=== PATIENT | female | born 1950 | race Caucasian/White ===

== ENCOUNTER → 2017-10-22 03:20 | Outpatient (REF) | payer MEDICARE, SELFPAY ==
[2017-10-22 08:12] LABS: Color, Urine Straw (Yellow); Glucose, Dipstick Normal (Normal); Ketone-Dipstick Negative (Negative); Leukocyte Esterase-Dipstick 500 /ul (Negative); Nitrite-Dipstick Negative (Negative); Occult Blood-Urine Negative /ul (Negative); Protein-Dipstick Negative (Negative); Urine Bilirubin Dipstick Negative (Negative); Urine Clarity Cloudy (Clear); Urine Urobilinogen Normal (Normal)
== END ==
LOC: OLS.ACW300 03:20
PROVIDERS: Visit Provider Internal Medicine
DX: G93.1 Anoxic brain damage, not elsewhere classified (principal); F79 Unspecified intellectual disabilities; R29.3 Abnormal posture; R56.9 Unspecified convulsions; I73.9 Peripheral vascular disease, unspecified; E03.9 Hypothyroidism, unspecified
CPT/HCPCS: 81002; 87077; 87086; 87088; 87186

== ENCOUNTER → 2017-12-26 05:00 | Outpatient (REF) | payer MEDICARE, SELFPAY ==
[2017-12-26 07:58] LABS: Absolute Lymphocyte Count 4.17 X10^3/ul (0.83-4.51); Absolute Neutrophil Count 3.1 X10^3/uL (2.0-7.7); Basophil# 0.06 X10^3/uL; Basophil% 0.7 % (0-1); Eosinophil# 0.32 X10^3/uL; Eosinophils% 3.9 % (0-5); Hematocrit 46.2 % (37-47); Hemoglobin 15.4 g/dl (12.0-15.0); Lymphocyte # 4.17 X10^3/ul (4.0); Lymphocyte % 50.3 % (19-41); Mean Corp Hgb Conc 33.3 g/gl (32-36); Mean Corpuscular Hgb 31.8 pg (27.0-32.0); Mean Corpuscular Volume 95.3 fL (81-99); Mean Platelet Vol. 10.7 fl (6.2-12.0); Monocyte# 0.61 X10^3/uL; Monocyte% 7.4 % (0-10); Neutrophil # 3.09 X10^3/uL (2.7-7.7); Neutrophil % 37.2 % (47-70); Platelet Count 263 K/mm3 (150-450); RBC Distribution Width CV 14.5 % (11.6-14.6); RBC Distribution Width SD 49.3 fl (35.1-43.9); Red Blood Count 4.85 M/mm3 (4.2-5.4); White Blood Count 8.3 K/mm3 (4.4-11.0)
[2017-12-26 07:59] LABS: POSITIVE COUNT NO; POSITIVE DIFFERENTIAL NO; POSITIVE MORPHOLOGY NO
== END ==
LOC: OLS.ACW100 05:00
PROVIDERS: Visit Provider Internal Medicine
DX: G93.1 Anoxic brain damage, not elsewhere classified (principal); F79 Unspecified intellectual disabilities; R29.3 Abnormal posture; I73.9 Peripheral vascular disease, unspecified; E03.9 Hypothyroidism, unspecified
CPT/HCPCS: 36415; 82140; 85025

== ENCOUNTER → 2018-02-14 04:00 | Outpatient (REF) | payer MEDICARE, SELFPAY ==
[2018-02-14 06:58] LABS: Valproic Acid (Depakene) Level 27 ug/mL (50-100)
== END ==
LOC: OLS.ACW300 04:00
PROVIDERS: Visit Provider Internal Medicine
DX: G93.1 Anoxic brain damage, not elsewhere classified (principal); F79 Unspecified intellectual disabilities; R29.3 Abnormal posture; R56.9 Unspecified convulsions; I73.9 Peripheral vascular disease, unspecified; E03.9 Hypothyroidism, unspecified
CPT/HCPCS: 36415; 80164

== ENCOUNTER → 2018-03-10 05:00 | Outpatient (REF) | payer MEDICARE, SELFPAY ==
[2018-03-10 10:01] LABS: Valproic Acid (Depakene) Level 35 ug/mL (50-100)
[2018-03-12 11:08] LABS: Zarontin Level 70 ug/mL (40-100)
== END ==
LOC: OLS.ACW300 05:00
PROVIDERS: Visit Provider Internal Medicine
DX: G93.1 Anoxic brain damage, not elsewhere classified (principal); F79 Unspecified intellectual disabilities; R29.3 Abnormal posture; I73.9 Peripheral vascular disease, unspecified; R56.9 Unspecified convulsions; E03.9 Hypothyroidism, unspecified
CPT/HCPCS: 36415; 80164; 80168

== ENCOUNTER → 2018-03-10 14:30 | Outpatient (REF) | payer MEDICARE, SELFPAY ==
[2018-03-11 12:52] LABS: Color, Urine Yellow (Yellow); Glucose, Dipstick Normal (Normal); Ketone-Dipstick Negative (Negative); Leukocyte Esterase-Dipstick 500 /ul (Negative); Nitrite-Dipstick Negative (Negative); Occult Blood-Urine 25 /ul (Negative); Protein-Dipstick 30 mg/dl (Negative); Specific Gravity, Urine 1.005 (1.002-1.030); Urine Bilirubin Dipstick Negative (Negative); Urine Clarity Cloudy (Clear); Urine Urobilinogen Normal (Normal)
== END ==
LOC: OLS.ACW300 14:30
PROVIDERS: Visit Provider Internal Medicine
DX: G93.1 Anoxic brain damage, not elsewhere classified (principal); F79 Unspecified intellectual disabilities; R29.3 Abnormal posture; R56.9 Unspecified convulsions; I73.9 Peripheral vascular disease, unspecified; E03.9 Hypothyroidism, unspecified
CPT/HCPCS: 81002; 87086; 87088; 87186

== ENCOUNTER → 2018-04-10 05:00 | Outpatient (REF) | payer MEDICARE, SELFPAY ==
[2018-04-10 09:35] LABS: Valproic Acid (Depakene) Level 59 ug/mL (50-100)
== END ==
LOC: OLS.ACW300 05:00
PROVIDERS: Visit Provider Internal Medicine
DX: G93.1 Anoxic brain damage, not elsewhere classified (principal); F79 Unspecified intellectual disabilities; R29.3 Abnormal posture; I73.9 Peripheral vascular disease, unspecified; E03.9 Hypothyroidism, unspecified
CPT/HCPCS: 36415; 80164

== ENCOUNTER → 2018-05-09 05:00 | Outpatient (REF) | payer MEDICARE, SELFPAY ==
[2018-05-09 09:05] LABS: Thyroid Stim Hormone (TSH) 4.75 uIU/mL (0.358-3.74)
== END ==
LOC: OLS.ACW300 05:00
PROVIDERS: Visit Provider Internal Medicine
DX: R56.9 Unspecified convulsions (principal); F79 Unspecified intellectual disabilities; I73.9 Peripheral vascular disease, unspecified; R29.3 Abnormal posture; M62.81 Muscle weakness (generalized); M25.579 Pain in unspecified ankle and joints of unspecified foot
CPT/HCPCS: 36415; 84443

== ENCOUNTER → 2018-06-20 05:00 | Outpatient (REF) | payer MEDICARE, SELFPAY ==
[2018-06-20 09:12] LABS: Thyroid Stim Hormone (TSH) 2.26 uIU/mL (0.358-3.74)
== END ==
LOC: OLS.ACW300 05:00
PROVIDERS: Visit Provider Internal Medicine
DX: G93.1 Anoxic brain damage, not elsewhere classified (principal); F79 Unspecified intellectual disabilities; R29.3 Abnormal posture; R56.9 Unspecified convulsions; I73.9 Peripheral vascular disease, unspecified; E03.9 Hypothyroidism, unspecified
CPT/HCPCS: 36415; 84443

== ENCOUNTER → 2018-07-07 05:00 | Outpatient (REF) | payer MEDICARE, SELFPAY ==
[2018-07-07 09:23] LABS: Valproic Acid (Depakene) Level 52 ug/mL (50-100)
--- OUTSIDE RECORDS SUMMARY | 2018-08-30 02:32 | XMS RPT_ITS ---
:1950 Author Organization OHIP Support Name Relationship Address Phone Philipp Arroyo Unavailable [address] + [place] [address] R Unavailable Unavailable Unavailable Dina, Philipp Unavailable [address] + [place] [address] R Unavailable Unavailable Unavailable [place], Philipp Unavailable [address] + [place] [address] R Unavailable Unavailable Unavailable Dina, Philipp Unavailable [address] + [place] [address] R Unavailable Unavailable Unavailable [place], Philipp Unavailable [address] + [place] [address] R Unavailable Unavailable Unavailable [place], Philipp Unavailable [address] + [place] [address] R Unavailable Unavailable Unavailable Dina, Philipp Unavailable [address] + [place] [address] R Unavailable Unavailable Unavailable Dina, Philipp Unavailable [address] + [place] [address] R Unavailable Unavailable Unavailable Dina, Philipp Unavailable [address] + [place] [address] R Unavailable Unavailable Unavailable Dina, Philipp Unavailable [address] + [place] [address] R Unavailable Unavailable Unavailable Care Team Providers Name Role Phone Darrian Cadena Attending Unavailable Darrian Cadena Attending Unavailable Darrian Cadena Attending Unavailable Darrian Cadena Attending Unavailable Darrian Cadena Attending Unavailable Darrian Cadena Attending Unavailable Darrian Cadena Attending Unavailable Katsaros, Darrian Attending Unavailable Katsaros, Darrian Attending Unavailable Katsaros, Darrian Attending Unavailable PROBLEMS PROBLEMS DATE TYPE CONDITION / CODE ATTENDING STATUS SOURCE 07/17/2018 Unknown G93.1 - Anoxic Darrian Cadena brain damage, not Community elsewhere Hospital classified / Repository G93.1(ICD-10) 07/17/2018 Unknown F79 - Unspecified Darrian Cadena intellectual Community disabilities / Hospital F79(ICD-10) Repository 07/17/2018 Unknown R29.3 - Abnormal Darrian Cadena Active [place] posture / Community R29.3(ICD-10) Hospital Repository 07/17/2018 Unknown R56.9 - KatDarrian garcia Active [place] Unspecified Community convulsions / Hospital R56.9(ICD-10) Repository 07/17/2018 Unknown I73.9 - Peripheral Darrian Cadena Active [place] vascular disease, Community unspecified / Hospital I73.9(ICD-10) Repository 07/17/2018 Unknown E03.9 - Darrian Cadena Active [place] Hypothyroidism, Community unspecified / Hospital E03.9(ICD-10) Repository 06/12/2018 Unknown M62.81 - Muscle KatDarrian garcia Active [place] weakness Community (generalized) / Hospital M62.81(ICD-10) Repository 06/12/2018 Unknown M25.579 - Pain in Darrian Cadena Active [place] unspecified ankle Community and joints of Hospital unspecified foot / Repository M25.579(ICD-10) PROCEDURES PROCEDURES No Procedure Records FoundRESULTS RESULTS VALPROIC ACID Collected: 07/07/2018 Status: F Source: [place] (DEPAKENE) LEVEL 6:55 AM [facility] REPOSITORY Order Comment: 304/2 TYPE CODE TESTS RESULT OUT OF RANGE REFERENCE UNITS LAB L501.8100 50-100 ug/mL Normal VALPROIC ACID 52 Performed By: #### L501.8100 #### [facility] [facility] [place], [address] THYROID STIM HORMONE Collected: 06/20/2018 Status: F Source: [place] (TSH) 7:00 AM [facility] REPOSIT[facility] Order Comment: ROOM 304 TYPE CODE TESTS RESULT OUT OF RANGE REFERENCE UNITS LAB L501.9520 0.358-3.74 uIU/mL Normal TSH 2.26 Performed By: #### L501.9520 #### [facility] [address] [place], [address] THYROID STIM HORMONE Collected: 05/09/2018 Status: F Source: [place] (TSH) 6:00 AM [facility] REPOS[facility] Order Comment: ROOM 304 TYPE CODE TESTS RESULT OUT OF RANGE REFERENCE UNITS LAB L501.9520 0.358-3.74 uIU/mL High TSH 4.75 Performed By: #### L501.9520 #### [facility] [address] [place], [address] VALPROIC ACID Collected: 04/10/2018 Status: F Source: [place] (DEPAKENE) LEVEL 7:10 AM [facility] REPOSIT[facility] TYPE CODE TESTS RESULT OUT OF RANGE REFERENCE UNITS LAB L501.8100 50-100 ug/mL Normal VALPROIC ACID 59 Performed By: #### L501.8100 #### [facility] [address] [place], [address] MISCELLANEOUS LAB Collected: 04/10/2018 Status: F Source: [place] PROCEDURE 7:10 AM [facility] REPOS[facility] Order Comment: Comments: [id number] ETHOSUXIMIDE SERUM RT Test(s) Ordered: [id number] ETHOSUXIMIDE SERUM RT TYPE CODE TESTS RESULT OUT OF RANGE REFERENCE UNITS LAB L801.1541 Normal MISC LAB TEST Result Comment: TEST RESULT UNITS REFERENCE INTERVAL Ethosuximide(Zaronton), serum 40 ug/mL 40 - 100 Detection Limit = 10 TESTING PERFORMED AT [facility]. ORIGINAL REPORT ON FILE IN LAB CONTAINS ADDITIONAL TEST SITE INFORMATION. Performed By: #### L801.1541 #### [facility] [address] [place], [address] URINALYSIS, ROUTINE Collected: 03/10/2018 Status: F Source: [place] (DIPSTICK) 2:30 PM [facility] REPOS[facility] Order Comment: How was Urine Obtained? CATHETER SPECIMEN TYPE CODE TESTS RESULT OUT OF RANGE REFERENCE UNITS LAB L400.3000 Yellow COLOR Normal Yellow LAB L400.3050 Clear Normal CLARITY Cloudy LAB L400.3200 Normal mg/dl Normal GLUCOSE, UR Normal LAB L400.3300 Negative mg/dL Normal BILIRUBIN URINE Negative LAB L400.3400 Negative mg/dl Normal KETONE UR Negative LAB L400.3465 1.002-1.030 Normal SP.GR. DIPSTX 1.005 LAB L400.3550 5.0 - 8.0 pH UR Normal 7.0 LAB L400.3600 Negative mg/dl High PROT 30 DIPSTX LAB L400.3700 Normal mg/dl Normal UROBILI Normal LAB L400.3750 Negative Normal NITRITE UR Negative LAB L400.3780 Negative /ul High 25 OCCULT BLOOD-UR LAB L400.3800 Negative /ul High LEUK ESTERASE 500 Performed By: #### L400.2011 #### [facility] [address] [place], [address] Observed: 03/10/2018 Status: F Source: [place] CULTURE, URINE 2:30 PM [facility] REPOS[facility] Urine Culture ORGANISM 1: Streptococcus agalactiae (B) Effie Count >100,000 ORGANISM 2: Proteus mirabilis Effie Count 50,000-80,000 Streptococcus agalactiae (B): REACTION Ampicillin $ <=0.25 S Benzylpenicillin NF <=0.06 S Ceftriaxone $ <=0.12 S Inducable Clindamycin Resistan - Linezolid $$$$ <=2 S Vancomycin $ 0.5 S (NF) indicates non-formulary drug at [facility]. Approval by Infectious Disease Specialist required before non-formulary drugs may be ordered and/or dispensed. * CLSI guidelines does not recommend testing of cephalosporins. This interpretation is deduced from Beta-lactam/penicillin results. Proteus mirabilis: REACTION Amoxacillin/Clavulanic Acid $ <=2 S Ampicillin $ <=2 S Ampicillin/Sulbactam $ <=2 S Cefazolin $ 8 S Cefepime $ <=1 S Ceftriaxone $ <=1 S Ciprofloxacin $ >=4 R Ertapenim $$$ <=0.5 S Gentamicin $ <=1 S Levofloxacin $ 4 I Nitrofurantoin $ 64 R Piperacillin/Tazobactam $$ <=4 S Tobramycin $ <=1 S Trimethoprim/Sulfametho $ 40 S (NF) indicates non-formulary drug at [facility]. Approval by Infectious Disease Specialist required before non-formulary drugs may be ordered and/or dispensed. Performed By: #### M100.0650 #### [facility] [address] [place], [address] VALPROIC ACID Collected: 03/10/2018 Status: F Source: [facility] 8:10 AM [facility] Order Comment: 304-2 TYPE CODE TESTS RESULT OUT OF REFERENCE UNITS RANGE LAB L501.8100 50-100 ug/mL Low VALPROIC ACID 35 Performed By: #### L501.8100 #### [facility] [address] [place], [address] ZARONTIN LEVEL Collected: 03/10/2018 Status: F Source: [place] 8:10 AM [facility]POS[facility] Order Comment: 304-2 TYPE CODE TESTS RESULT OUT OF RANGE REFERENCE UNITS LAB L3400.0600 40-100 ug/mL Normal ZARONTIN 7443 70 Result Comment: Detection Limit = 10 Performed at: - [facility] [id number] [employer] Operator: Aris Agosto MD, Phone: [phone] Performed By: #### L3400.0600 #### [facility] (refer to report for specific site) refer to report for address and phone number VALPROIC ACID Collected: 02/14/2018 Status: F Source: [facility]) LEVEL 5:24 AM [facility] TYPE CODE TESTS RESULT OUT OF REFERENCE UNITS RANGE LAB L501.8100 50-100 ug/mL Low VALPROIC ACID 27 Performed By: #### L501.8100 #### [facility] [address] [place], [address] MISCELLANEOUS LAB Collected: 02/14/2018 Status: F Source: [place] PROCEDURE 5:24 AM [facility] Order Comment: Comments: #[id number] ETHOSUXIMIDE SERUM RT Test(s) Ordered: #[id number] ETHOSUXIMIDE SERUM RT TYPE CODE TESTS RESULT OUT OF RANGE REFERENCE UNITS LAB L801.1541 Normal [facility] LAB TEST Result Comment: TEST RESULT UNITS REF INTERVAL Ethosuximide (Zarontin), Serum Ethosuximide (Zarontin), Serum 129 Alert ug/mL 40 - 100 Verified by repeat analysis Detection Limit = 10 See below: Patient drug level exceeds published reference range. Evaluate clinically for signs of potential toxicity. TESTING PERFORMED AT [facility]. ORIGINAL REPORT ON FILE IN LAB CONTAINS ADDITIONAL TEST SITE INFORMATION. Performed By: #### L801.1541 #### [facility] [address] [place], [address] CBC W/DIFF, AUTOMATED Collected: 12/26/2017 Status: F Source: [place] 6:40 AM [facility]POS[facility] Order Comment: ROOM 304 TYPE CODE TESTS RESULT OUT OF RANGE REFERENCE UNITS LAB L100.1000 4.4-11.0 K/mm3 Normal WBC 8.3 LAB L100.1200 4.2-5.4 M/mm3 Normal RBC 4.85 LAB L100.1300 12.0-15.0 g/dl High HGB 15.4 LAB L100.1400 37-47 % Normal HCT 46.2 LAB L100.1500 81-99 fL Normal MCV 95.3 LAB L100.1600 27.0-32.0 pg Normal MCH 31.8 LAB L100.1700 32-36 g/gl Normal MCHC 33.3 LAB L100.1810 11.6-14.6 % Normal RDW CV 14.5 LAB L100.1820 35.1-43.9 fl High RDW SD 49.3 LAB L100.1900 150-450 K/mm3 Normal PLT 263 LAB L100.2000 6.2-12.0 fl Normal MPV 10.7 LAB L100.2100 47-70 % Low NEUT% 37.2 LAB L100.2200 19-41 % High LY% 50.3 LAB L100.2300 0-10 % Normal MONO% 7.4 LAB L100.2400 0-5 % Normal EO% 3.9 LAB L100.2500 0-1 % Normal BASO% 0.7 LAB L100.2550 0.0-0.9 % Normal IM GRAN % 0.500 Result Comment: IG% - Immature Granulocytes (promyelocytes, myelocytes and metamyelocytes) > 1% indicates that a LEFT SHIFT is Present. LAB L100.2620 2.0-7.7 X10 3/uL Normal Absolute Neut 3.1 LAB L100.2720 0.83-4.51 X10 3/ul Normal Absolute Lymph 4.17 Performed By: #### L100.0100 #### [facility] [address] [place], [address] AMMONIA Collected: 12/26/2017 Status: F Source: [place] 6:40 AM [facility] Order Comment: ROOM 304 TYPE CODE TESTS RESULT OUT OF REFERENCE UNITS RANGE LAB L503.5510 11-32 umol/L High AMMONIA 34.0 Performed By: #### L503.5510 #### [facility] [address], [place], [address] URINALYSIS, ROUTINE Collected: 10/22/2017 Status: F Source: [place] (DIPSTICK) 3:20 AM [facility] Order Comment: How was Urine Obtained? CLEAN CATCH TYPE CODE TESTS RESULT OUT OF RANGE REFERENCE UNITS LAB L400.3000 Yellow COLOR Normal Straw LAB L400.3050 Clear Normal CLARITY Cloudy LAB L400.3200 Normal mg/dl Normal GLUCOSE, UR Normal LAB L400.3300 Negative mg/dL Normal BILIRUBIN URINE Negative LAB L400.3400 Negative mg/dl Normal KETONE UR Negative LAB L400.3465 1.002-1.030 Normal SP.GR. DIPSTX 1.010 LAB L400.3550 5.0 - 8.0 pH UR Normal 7.0 LAB L400.3600 Negative mg/dl PROT Normal DIPSTX Negative LAB L400.3700 Normal mg/dl Normal UROBILI Normal LAB L400.3750 Negative Normal NITRITE UR Negative LAB L400.3780 Negative /ul Normal OCCULT BLOOD-UR Negative LAB L400.3800 Negative /ul High LEUK ESTERASE 500 Performed By: #### L400.2011 #### [facility] [address] [facility] [address] [place], [place], [address] Observed: 10/22/2017 Status: F Source: [place] CULTURE, URINE 3:20 AM [facility]POS[facility] Urine Culture ORGANISM 1: Proteus mirabilis Effie Count 80,000-100,000 Proteus mirabilis: REACTION Amoxacillin/Clavulanic Acid $ <=2 S Ampicillin $ <=2 S Ampicillin/Sulbactam $ <=2 S Cefazolin $ <=4 S Cefepime $ <=1 S Ceftriaxone $ <=1 S Ciprofloxacin $ >=4 R Ertapenim $$$ <=0.5 S Gentamicin $ <=1 S Levofloxacin $ 4 I Nitrofurantoin $ 64 R Piperacillin/Tazobactam $$ <=4 S Tobramycin $ <=1 S Trimethoprim/Sulfametho $ >=320 R (NF) indicates non-formulary drug at [facility]. Approval by Infectious Disease Specialist required before non-formulary drugs may be ordered and/or dispensed. Performed By: #### M100.0650 #### [facility] [address] [facility] [address] [place], [place], [address] ALLERGIES ALLERGIES No Allergies Records FoundENCOUNTERS ENCOUNTERS ADMIT/DISCHARGE ACCOUNT ADMITTING ENCOUNTER LOCATION SOURCE NUMBER CLASS 07/14/2018 [id number] Ambulatory [address] ing:OLS.ACW30 Repository 0 07/07/2018 [id number] [address] [facility] ing:OLS.ACW30 Repository 0 06/20/2018 [id number] Ambulatory [place] [facility] ing:OLS.ACW30 Repository 0 05/09/2018 [id number] Amb[place] [facility] ing:OLS.ACW30 Repository 0 04/10/2018 [id number] Ambulatory [place] 2 [facility] ing:OLS.ACW30 Repository 0 03/10/2018 [id number] Ambulatory [place] 1 [facility] ing:OLS.ACW30 Repository 0 03/10/2018 [id number] Ambulatory [place] 7 [facility] ing:OLS.ACW30 Repository 0 02/14/2018 [id number] Amb[place] [facility] ing:OLS.ACW30 Repository 0 12/26/2017 [id number] Ambulatory [place] 9 [facility] ing:OLS.ACW10 Repository 0 10/22/2017 [id number] Ambulatory [place] 5 [facility] ing:OLS.ACW30 Repository 0 PAYERS PAYERS ENCOUNTER GUARANTOR PAYER SUBSCRIBER SOURCE 07/14/2018 Milagro Kimball Primary NOT GIVENUNK [place] Insurance:SELF PAY [facility] Number: Effective Repository [place], [place] Date:2018-07-14 [id number]: () 07/07/2018 Milagro Arroyo147 Primary Milagro [place] [facility] [place]: Community [facility] OF *IN [facility] [id number] Number: Repository [place], [place] [id number]: 330) Date:5630-33-68WB [phone] () [address] [address]WG: 07/07/2018 Secondary NOT GIVENUNK [place] Insurance:SELF PAY [facility] Number: Effective Repository Date:2018-07-07 06/20/2018 Milagro Rogrgo260 Primary Milagro [place] [facility] [place]: Community [facility] OF *IN [place] [id number] YOSELYN Number: Repository [place], [place] [id number]: ([phone]) Date:6389-22-56IU [phone] () [address] [place] [address]BW: 06/20/2018 Secondary NOT GIVENUNK [place] Insurance:SELF PAY [facility] Number: Effective Repository Date:2018-06-20 05/09/2018 Milagrojania [id number] Primary Milagro [place] L[place]Y Insurance:[facility] [place]OB: Community [facility] OF *IN [address]11-20[facility] Number: Repository [place], [place] [id number]: (330) Date:3920-95-01DP [phone] () [address] [address]FB: 05/09/2018 Secondary NOT GIVENUNK [place] Insurance:SELF PAY [facility] Number: Effective Repository Date:2018-05-09 04/10/2018 Milagrojania Arroyo147 Primary Milagro [place] Insurance:[facility] [place]OB: Community [facility] OF *IN [place] [id number] Number: Repository [place], [place] [id number]: ([phone]) Date:0440-99-23YK [phone] () [address] [address]VO: 04/10/2018 Secondary NOT GIVENUNK [place] Insurance:SELF PAY [facility] Number: Effective Repository Date:2018-04-10 03/10/2018 Milagro [id number] Primary Milagro [place] LARRY Insurance:[facility] [place]DOB: Community [address] OF *IN [place] [id number] YOSELYN Number: Repository [place], [place] [id number]: (330) Date:5387-27-57HI [phone] () [address] [place] [address]OZ: 03/10/2018 Secondary NOT GIVENUNK [place] Insurance:SELF PAY [facility] Number: Effective Repository Date:2018-03-10 03/10/2018 Milagrojania Arroyo147 Primary Milagro [place] LARRY Insurance:[facility] [place]DOB: Community [facility] OF *IN [place] [id number] Number: Repository [place], [place] [id number] [id number]: ([phone]) Date:5040-97-61IV [phone] () [address] [place] [address]LF: 03/10/2018 Secondary NOT GIVENUNK [place] Insurance:SELF PAY [facility] Number: Effective Repository Date:2018-03-10 02/14/2018 Milagrojania Arroyo147 Primary Milagro [place] LARRY Insurance:[facility] [place]DOB: Community [address] OF *IN [place] [id number] Number: Repository [place], [place] [id number]: (330) Date:6174-28-84NZ [phone] () [address] [place] [address]KG: 02/14/2018 Secondary NOT GIVENUNK [place] Insurance:SELF PAY [facility] Number: Effective Repository Date:2018-02-14 12/26/2017 Milagro Arroyo147 Primary Milagro [place] LARRY Insurance:[facility] [place]DOB: Community [facility] OF *IN [place] [address]59-11-20[facility] Number: Repository [place], [place] [id number]: (330) Date:9019-87-52LQ [phone] () [address] [place] [address]LK: 12/26/2017 Secondary NOT GIVENUNK [place] Insurance:SELF PAY [facility] Number: Effective Repository Date:2017-12-26 10/22/2017 Milagrojania Arroyo147 Primary Milagro [place] LARRY Insurance:[facility] [place]DOB: Community [facility] OF *IN [facility] [id number] Number: Repository [place], [place] [id number]: (330) Date:8562-99-64XM [phone] () [address] [place] [address]BA: 10/22/2017 Secondary NOT GIVENUNK [place] Insurance:SELF PAY [facility] Number: Effective Repository Date:2017-10-22
== END ==
LOC: OLS.ACW300 05:00
PROVIDERS: Visit Provider Internal Medicine
DX: G93.1 Anoxic brain damage, not elsewhere classified (principal); F79 Unspecified intellectual disabilities; R29.3 Abnormal posture; I73.9 Peripheral vascular disease, unspecified; E03.9 Hypothyroidism, unspecified; R56.9 Unspecified convulsions
CPT/HCPCS: 36415; 80164

== ENCOUNTER → 2018-07-14 04:00 | Outpatient (REF) | payer MEDICARE, SELFPAY | LOC: OLS.ACW300 04:00 | PROVIDERS: Visit Provider Internal Medicine | DX: G93.1 Anoxic brain damage, not elsewhere classified (principal); F79 Unspecified intellectual disabilities; R29.3 Abnormal posture; I73.9 Peripheral vascular disease, unspecified; E03.9 Hypothyroidism, unspecified ==

== ENCOUNTER → 2018-08-16 08:30 | Outpatient (REF) | payer MEDICARE, SELFPAY ==
[2018-08-16 09:55] LABS: Valproic Acid (Depakene) Level 54 ug/mL (50-100)
[2018-08-16 15:37] LABS: Color, Urine Yellow (Yellow); Glucose, Dipstick Normal (Normal); Ketone-Dipstick Negative (Negative); Leukocyte Esterase-Dipstick 100 /ul (Negative); Nitrite-Dipstick Negative (Negative); Occult Blood-Urine Negative /ul (Negative); Protein-Dipstick Negative (Negative); Specific Gravity, Urine 1.005 (1.002-1.030); Urine Bilirubin Dipstick Negative (Negative); Urine Clarity Clear (Clear); Urine Urobilinogen Normal (Normal)
== END ==
LOC: OLS.ACW300 08:30
PROVIDERS: Visit Provider Internal Medicine
DX: G93.1 Anoxic brain damage, not elsewhere classified (principal); F79 Unspecified intellectual disabilities; R29.3 Abnormal posture; R56.9 Unspecified convulsions; I73.9 Peripheral vascular disease, unspecified; E03.9 Hypothyroidism, unspecified
CPT/HCPCS: 36415; 80164; 81002; 87077; 87086; 87088; 87186

== ENCOUNTER → 2018-10-07 05:00 | Outpatient (REF) | payer MEDICARE, SELFPAY ==
[2018-10-07 09:11] LABS: Valproic Acid (Depakene) Level 50 ug/mL (50-100)
== END ==
LOC: OLS.ACW300 05:00
PROVIDERS: Visit Provider Internal Medicine
DX: G93.1 Anoxic brain damage, not elsewhere classified (principal); F79 Unspecified intellectual disabilities; R29.3 Abnormal posture; I73.9 Peripheral vascular disease, unspecified; R56.9 Unspecified convulsions; E03.9 Hypothyroidism, unspecified
CPT/HCPCS: 36415; 80164

== ENCOUNTER → 2018-12-18 | Outpatient (REF) | payer MEDICARE, SELFPAY ==
[2018-12-18 09:20] LABS: Thyroid Stim Hormone (TSH) 2.23 uIU/mL (0.358-3.74)
== END | disposition home or self-care (01) ==
LOC: OLS.ACW300 04:30
PROVIDERS: Visit Provider Family Medicine
DX: G93.1 Anoxic brain damage, not elsewhere classified (principal); F79 Unspecified intellectual disabilities; R29.3 Abnormal posture; R56.9 Unspecified convulsions; I73.9 Peripheral vascular disease, unspecified; E03.9 Hypothyroidism, unspecified
CPT/HCPCS: 36415; 84443

== ENCOUNTER → 2019-02-19 05:00 | Outpatient (REF) | payer MEDICARE, SELFPAY ==
[2019-02-19 07:42] LABS: Hematocrit 39.8 % (37-47); Hemoglobin 12.6 g/dL (12.0-15.0); Mean Corp Hgb Conc 31.7 g/dL (32-36); Mean Corpuscular Hgb 28.8 pg (27.0-32.0); Mean Corpuscular Volume 90.9 fL (81-99); Mean Platelet Vol. 10.9 fl (6.2-12.0); Platelet Count 334 K/mm3 (150-450); RBC Distribution Width CV 15.8 % (11.6-14.6); RBC Distribution Width SD 52.2 fl (35.1-43.9); Red Blood Count 4.38 M/mm3 (4.2-5.4); White Blood Count 9.3 K/mm3 (4.4-11.0)
[2019-02-19 07:54] LABS: Valproic Acid (Depakene) Level 36 ug/mL (50-100)
[2019-02-19 08:05] LABS: Anion Gap 9 (5-15); BUN 18 mg/dL (7-18); Calcium,Total 9.2 mg/dL (8.5-10.1); Chloride 106 mmol/L (98-107); Creatinine, Serum 0.67 mg/dL (0.55-1.02); EST Glomerular Filtration Rate 93 mL/min (>60); Est Glom Filt Rate - Afr Amer 113 mL/min (>60); Glucose 84 mg/dL (74-106); Potassium 4.1 mmol/L (3.5-5.1); Sodium Level 140 mmol/L (136-145); Thyroid Stim Hormone (TSH) 2.24 uIU/mL (0.358-3.74)
== END ==
LOC: OLS.ACW300 05:00
PROVIDERS: Visit Provider Internal Medicine
DX: G93.1 Anoxic brain damage, not elsewhere classified (principal); F79 Unspecified intellectual disabilities; R29.3 Abnormal posture; R56.9 Unspecified convulsions; I73.9 Peripheral vascular disease, unspecified; E03.9 Hypothyroidism, unspecified
CPT/HCPCS: 36415; 80048; 80164; 84443; 85027; 87086; 87088; 87186

== ENCOUNTER → 2019-04-09 05:00 | Outpatient (REF) | payer MEDICARE, SELFPAY ==
[2019-04-09 08:21] LABS: Valproic Acid (Depakene) Level 47 ug/mL (50-100)
== END ==
LOC: OLS.ACW300 05:00
PROVIDERS: Visit Provider Internal Medicine
DX: Z79.899 Other long term (current) drug therapy (principal)
CPT/HCPCS: 36415; 80164

== ENCOUNTER → 2019-05-06 05:00 | Outpatient (REF) | payer MEDICARE, SELFPAY ==
[2019-05-06 08:36] LABS: Hematocrit 39.9 % (37-47); Hemoglobin 12.8 g/dL (12.0-15.0); Mean Corp Hgb Conc 32.1 g/dL (32-36); Mean Corpuscular Hgb 29.5 pg (27.0-32.0); Mean Corpuscular Volume 91.9 fL (81-99); Mean Platelet Vol. 11.5 fl (6.2-12.0); Platelet Count 212 K/mm3 (150-450); RBC Distribution Width CV 14.4 % (11.6-14.6); RBC Distribution Width SD 48.8 fl (35.1-43.9); Red Blood Count 4.34 M/mm3 (4.2-5.4); White Blood Count 11.6 K/mm3 (4.4-11.0)
[2019-05-06 08:43] LABS: ALB/GLOB Ratio 0.7 RATIO (0.9-2.4); AST(SGOT) 12 U/L (15-37); Alanine Aminotransfer ALT/SGPT 14 U/L (13-56); Albumin, Serum 3.2 g/dL (3.2-5.0); Alkaline Phosphatase 69 U/L (45-117); Anion Gap 6 (5-15); BUN 17 mg/dL (7-18); BUN/Creat Ratio 24.2 RATIO (10-20); Calcium,Total 9.1 mg/dL (8.5-10.1); Chloride 105 mmol/L (98-107); EST Glomerular Filtration Rate 88 mL/min (>60); Est Glom Filt Rate - Afr Amer 106 mL/min (>60); Globulin 4.3 g/dL (2.2-4.2); Glucose 83 mg/dL (74-106); Protein, Total 7.5 g/dL (6.4-8.2); Sodium Level 141 mmol/L (136-145)
[2019-05-06 08:43] LABS: Color, Urine Yellow (Yellow); Glucose, Dipstick Normal (Normal); Ketone-Dipstick Negative (Negative); Leukocyte Esterase-Dipstick 500 /ul (Negative); Nitrite-Dipstick Positive (Negative); Occult Blood-Urine 25 /ul (Negative); Protein-Dipstick 30 mg/dl (Negative); Urine Bilirubin Dipstick Negative (Negative); Urine Clarity Sl. Cloudy (Clear); Urine Urobilinogen Normal (Normal)
== END ==
LOC: OLS.ACW300 05:00
PROVIDERS: Visit Provider Internal Medicine
DX: G93.1 Anoxic brain damage, not elsewhere classified (principal); F79 Unspecified intellectual disabilities; R29.3 Abnormal posture; R56.9 Unspecified convulsions; I73.9 Peripheral vascular disease, unspecified; E03.9 Hypothyroidism, unspecified; R41.82 Altered mental status, unspecified
CPT/HCPCS: 36415; 80053; 81002; 85027; 87086; 87088; 87186

== ENCOUNTER → 2019-06-07 12:00 | Outpatient (REF) | payer MEDICARE, SELFPAY ==
[2019-06-07 18:24] LABS: Color, Urine Straw (Yellow); Glucose, Dipstick Normal (Normal); Ketone-Dipstick Negative (Negative); Leukocyte Esterase-Dipstick 500 /ul (Negative); Nitrite-Dipstick Positive (Negative); Occult Blood-Urine Negative /ul (Negative); Protein-Dipstick Negative (Negative); Specific Gravity, Urine 1.005 (1.002-1.030); Urine Bilirubin Dipstick Negative (Negative); Urine Clarity Sl. Cloudy (Clear); Urine Urobilinogen Normal (Normal)
== END ==
LOC: OLS.ACW300 12:00
PROVIDERS: Visit Provider Internal Medicine
DX: G93.1 Anoxic brain damage, not elsewhere classified (principal); F79 Unspecified intellectual disabilities; R29.3 Abnormal posture; I73.9 Peripheral vascular disease, unspecified; E03.9 Hypothyroidism, unspecified; R41.82 Altered mental status, unspecified
CPT/HCPCS: 81002; 87086; 87088; 87186

== ENCOUNTER → 2019-06-17 02:30 | Outpatient (REF) | payer MEDICARE, SELFPAY ==
[2019-06-17 07:53] LABS: Color, Urine Yellow (Yellow); Glucose, Dipstick Normal (Normal); Ketone-Dipstick Negative (Negative); Leukocyte Esterase-Dipstick 500 /ul (Negative); Nitrite-Dipstick Negative (Negative); Occult Blood-Urine 50 /ul (Negative); Protein-Dipstick 30 mg/dl (Negative); Specific Gravity, Urine 1.015 (1.002-1.030); Urine Bilirubin Dipstick Negative (Negative); Urine Clarity Cloudy (Clear); Urine Urobilinogen Normal (Normal); Urine pH 6.5 (5.0 - 8.0)
== END ==
LOC: OLS.ACW300 02:30
PROVIDERS: Visit Provider Internal Medicine
DX: G93.1 Anoxic brain damage, not elsewhere classified (principal); F79 Unspecified intellectual disabilities; R29.3 Abnormal posture; R56.9 Unspecified convulsions; I73.9 Peripheral vascular disease, unspecified; E03.9 Hypothyroidism, unspecified; R41.82 Altered mental status, unspecified
CPT/HCPCS: 81002; 87077; 87086; 87088; 87186

== ENCOUNTER → 2019-07-09 05:00 | Outpatient (REF) | payer MEDICARE, SELFPAY ==
[2019-07-09 09:38] LABS: ALB/GLOB Ratio 0.8 RATIO (0.9-2.4); AST(SGOT) 12 U/L (15-37); Alanine Aminotransfer ALT/SGPT 17 U/L (13-56); Albumin, Serum 3.6 g/dL (3.2-5.0); Alkaline Phosphatase 67 U/L (45-117); Anion Gap 11 (5-15); BUN 24 mg/dL (7-18); BUN/Creat Ratio 28.1 RATIO (10-20); Calcium,Total 9.5 mg/dL (8.5-10.1); Chloride 105 mmol/L (98-107); Creatinine, Serum 0.86 mg/dL (0.55-1.02); EST Glomerular Filtration Rate 70 mL/min (>60); Est Glom Filt Rate - Afr Amer 85 mL/min (>60); Globulin 4.7 g/dL (2.2-4.2); Glucose 90 mg/dL (74-106); Potassium 3.9 mmol/L (3.5-5.1); Protein, Total 8.3 g/dL (6.4-8.2); Sodium Level 141 mmol/L (136-145)
[2019-07-09 09:44] LABS: Valproic Acid (Depakene) Level 54 ug/mL (50-100)
== END ==
LOC: OLS.ACW300 05:00
PROVIDERS: Visit Provider Internal Medicine
DX: G93.1 Anoxic brain damage, not elsewhere classified (principal); F79 Unspecified intellectual disabilities; R29.3 Abnormal posture; I73.9 Peripheral vascular disease, unspecified; E03.9 Hypothyroidism, unspecified; R56.9 Unspecified convulsions; Z79.899 Other long term (current) drug therapy
CPT/HCPCS: 36415; 80053; 80164

== ENCOUNTER → 2019-10-07 05:00 | Outpatient (REF) | payer MEDICARE, MEDICAID, SELFPAY ==
[2019-10-07 09:50] LABS: Hematocrit 41.2 % (37-47); Mean Corp Hgb Conc 31.6 g/dL (32-36); Mean Corpuscular Hgb 28.1 pg (27.0-32.0); Mean Corpuscular Volume 89.2 fL (81-99); Platelet Count 280 K/mm3 (150-450); RBC Distribution Width SD 48.8 fl (35.1-43.9); Red Blood Count 4.62 M/mm3 (4.2-5.4); White Blood Count 7.4 K/mm3 (4.4-11.0)
[2019-10-07 10:08] LABS: Anion Gap 8 (5-15); BUN 22 mg/dL (7-18); BUN/Creat Ratio 27.3 RATIO (10-20); Calcium,Total 9.4 mg/dL (8.5-10.1); Chloride 106 mmol/L (98-107); Creatinine, Serum 0.81 mg/dL (0.55-1.02); EST Glomerular Filtration Rate 75 mL/min (>60); Est Glom Filt Rate - Afr Amer 90 mL/min (>60); Glucose 77 mg/dL (74-106); Potassium 4.7 mmol/L (3.5-5.1); Sodium Level 137 mmol/L (136-145)
[2019-10-07 10:19] LABS: Valproic Acid (Depakene) Level 45 ug/mL (50-100)
== END ==
LOC: OLS.ACW300 05:00
PROVIDERS: Visit Provider Internal Medicine
DX: G93.1 Anoxic brain damage, not elsewhere classified (principal); F79 Unspecified intellectual disabilities; R29.3 Abnormal posture; I73.9 Peripheral vascular disease, unspecified; E03.9 Hypothyroidism, unspecified; Z79.899 Other long term (current) drug therapy
CPT/HCPCS: 36415; 80048; 80164; 85027

== ENCOUNTER → 2019-12-17 21:00 | Outpatient (REF) | payer MEDICARE, MEDICAID, SELFPAY | LOC: OLS.ACW300 21:00 | PROVIDERS: Visit Provider Internal Medicine | DX: G93.1 Anoxic brain damage, not elsewhere classified (principal); F79 Unspecified intellectual disabilities; R29.3 Abnormal posture; R56.9 Unspecified convulsions; I73.9 Peripheral vascular disease, unspecified; E03.9 Hypothyroidism, unspecified; Z79.899 Other long term (current) drug therapy | CPT/HCPCS: 87086; 87088; 87186 ==

== ENCOUNTER → 2020-01-07 05:00 | Outpatient (REF) | payer MEDICAID, MEDICARE, SELFPAY ==
[2020-01-07 08:43] LABS: Hematocrit 44.3 % (37-47); Hemoglobin 14.4 g/dL (12.0-15.0); Mean Corp Hgb Conc 32.5 g/dL (32-36); Mean Corpuscular Hgb 29.1 pg (27.0-32.0); Mean Corpuscular Volume 89.7 fL (81-99); Mean Platelet Vol. 11.3 fl (6.2-12.0); Platelet Count 318 K/mm3 (150-450); RBC Distribution Width CV 15.5 % (11.6-14.6); RBC Distribution Width SD 51.3 fl (35.1-43.9); Red Blood Count 4.94 M/mm3 (4.2-5.4); White Blood Count 9.6 K/mm3 (4.4-11.0)
[2020-01-07 08:48] LABS: Anion Gap 8 (5-15); BUN 22 mg/dL (7-18); BUN/Creat Ratio 29.9 RATIO (10-20); Calcium,Total 9.6 mg/dL (8.5-10.1); Chloride 106 mmol/L (98-107); Creatinine, Serum 0.74 mg/dL (0.55-1.02); EST Glomerular Filtration Rate 83 mL/min (>60); Est Glom Filt Rate - Afr Amer 100 mL/min (>60); Glucose 95 mg/dL (74-106); Potassium 4.2 mmol/L (3.5-5.1); Sodium Level 138 mmol/L (136-145)
== END ==
LOC: OLS.ACW300 05:00
PROVIDERS: Referring Provider Internal Medicine; Visit Provider Internal Medicine
DX: G93.1 Anoxic brain damage, not elsewhere classified (principal); F79 Unspecified intellectual disabilities; R29.3 Abnormal posture; I73.9 Peripheral vascular disease, unspecified; R56.9 Unspecified convulsions; E03.9 Hypothyroidism, unspecified
CPT/HCPCS: 36415; 80048; 85027

== ENCOUNTER → 2020-02-05 03:10 | Outpatient (REF) | payer MEDICARE, MEDICAID, SELFPAY ==
[2020-02-05 09:42] LABS: Color, Urine Yellow (Yellow); Glucose, Dipstick Normal (Normal); Ketone-Dipstick Negative (Negative); Leukocyte Esterase-Dipstick 500 /ul (Negative); Nitrite-Dipstick Negative (Negative); Occult Blood-Urine 25 /ul (Negative); Protein-Dipstick 30 mg/dl (Negative); Specific Gravity, Urine 1.015 (1.002-1.030); Urine Bilirubin Dipstick Negative (Negative); Urine Clarity Cloudy (Clear); Urine Urobilinogen Normal (Normal)
== END ==
LOC: OLS.ACW300 03:10
PROVIDERS: Visit Provider Internal Medicine
DX: G93.1 Anoxic brain damage, not elsewhere classified (principal); F79 Unspecified intellectual disabilities; R29.3 Abnormal posture; R56.9 Unspecified convulsions; I73.9 Peripheral vascular disease, unspecified; E03.9 Hypothyroidism, unspecified; Z79.899 Other long term (current) drug therapy
CPT/HCPCS: 81002; 87077; 87086; 87088; 87186

== ENCOUNTER → 2020-04-12 05:00 | Outpatient (REF) | payer MEDICARE, MEDICAID, SELFPAY ==
[2020-04-12 10:17] LABS: ALB/GLOB Ratio 0.8 RATIO (0.9-2.4); AST(SGOT) 21 U/L (15-37); Alanine Aminotransfer ALT/SGPT 20 U/L (13-56); Albumin, Serum 3.7 g/dL (3.2-5.0); Alkaline Phosphatase 79 U/L (45-117); Anion Gap 9 (5-15); BUN 19 mg/dL (7-18); BUN/Creat Ratio 25.7 RATIO (10-20); Calcium,Total 9.5 mg/dL (8.5-10.1); Chloride 106 mmol/L (98-107); Creatinine, Serum 0.74 mg/dL (0.55-1.02); EST Glomerular Filtration Rate 83 mL/min (>60); Est Glom Filt Rate - Afr Amer 100 mL/min (>60); Globulin 4.5 g/dL (2.2-4.2); Glucose 95 mg/dL (74-106); Potassium 4.2 mmol/L (3.5-5.1); Protein, Total 8.2 g/dL (6.4-8.2); Sodium Level 141 mmol/L (136-145)
[2020-04-12 11:37] LABS: Hematocrit 43.3 % (37-47); Hemoglobin 13.9 g/dL (12.0-15.0); Mean Corp Hgb Conc 32.1 g/dL (32-36); Mean Corpuscular Hgb 29.3 pg (27.0-32.0); Mean Corpuscular Volume 91.2 fL (81-99); Mean Platelet Vol. 11.1 fl (6.2-12.0); Platelet Count 293 K/mm3 (150-450); RBC Distribution Width CV 14.7 % (11.6-14.6); RBC Distribution Width SD 49.8 fl (35.1-43.9); Red Blood Count 4.75 M/mm3 (4.2-5.4); White Blood Count 8.7 K/mm3 (4.4-11.0)
== END ==
LOC: OLS.ACW300 05:00
PROVIDERS: Visit Provider Internal Medicine
DX: G93.1 Anoxic brain damage, not elsewhere classified (principal); F79 Unspecified intellectual disabilities; R29.3 Abnormal posture; R56.9 Unspecified convulsions; I73.9 Peripheral vascular disease, unspecified; E03.9 Hypothyroidism, unspecified
CPT/HCPCS: 36415; 80053; 85027

== ENCOUNTER → 2020-05-20 10:06 | Outpatient (REF) | payer MEDICARE, MEDICAID, SELFPAY | LOC: OLS.ACW300 10:06 | PROVIDERS: Referring Provider Family Medicine; Visit Provider Family Medicine | DX: Z03.818 Encounter for observation for suspected exposure to other biological agents ruled out (principal) | CPT/HCPCS: 87635; U0003 ==

== ENCOUNTER → 2020-05-26 12:42 | Outpatient (REF) | payer MEDICARE, MEDICAID, SELFPAY | LOC: OLS.ACW300 12:42 | PROVIDERS: Referring Provider Family Medicine; Visit Provider Family Medicine | DX: Z03.818 Encounter for observation for suspected exposure to other biological agents ruled out (principal) | CPT/HCPCS: 87635; U0003 ==

== ENCOUNTER → 2020-07-13 12:11 | Outpatient (REF) | payer MEDICARE, MEDICAID, SELFPAY | LOC: OLS.ACW300 12:11 | PROVIDERS: Referring Provider Family Medicine; Visit Provider Family Medicine | DX: Z03.818 Encounter for observation for suspected exposure to other biological agents ruled out (principal) | CPT/HCPCS: 87635; U0003 ==

== ENCOUNTER → 2020-09-12 05:00 | Outpatient (REF) | payer MEDICARE, MEDICAID, SELFPAY ==
[2020-09-12 08:28] LABS: Valproic Acid (Depakene) Level 54 ug/mL (50-100)
[2020-09-12 08:41] LABS: Cholesterol 219 mg/dL (200); High Density Lipoprotein 56 mg/dL; Triglycerides 245 mg/dL; Very Low Density Lipoprotein 49 mg/dL (5-40)
== END ==
LOC: OLS.ACW300 05:00
PROVIDERS: Referring Provider Internal Medicine; Visit Provider Internal Medicine
DX: G93.1 Anoxic brain damage, not elsewhere classified (principal); F79 Unspecified intellectual disabilities; R29.3 Abnormal posture; I10 Essential (primary) hypertension; R41.841 Cognitive communication deficit; M62.81 Muscle weakness (generalized)
CPT/HCPCS: 36415; 80061; 80164

== ENCOUNTER → 2020-10-26 04:10 | Outpatient (REF) | payer MEDICARE, MEDICAID, SELFPAY | LOC: OLS.ACW300 04:10 | PROVIDERS: Visit Provider Internal Medicine | DX: G93.1 Anoxic brain damage, not elsewhere classified (principal); F79 Unspecified intellectual disabilities; R29.3 Abnormal posture; R56.9 Unspecified convulsions; R41.841 Cognitive communication deficit; Z79.899 Other long term (current) drug therapy; M62.81 Muscle weakness (generalized) | CPT/HCPCS: 87086; 87088; 87186 ==

== ENCOUNTER → 2020-12-19 04:00 | Outpatient (REF) | payer MEDICARE, MEDICAID, SELFPAY ==
[2020-12-19 08:24] LABS: Hematocrit 38.5 % (37-47); Hemoglobin 11.8 g/dL (12.0-15.0); Mean Corp Hgb Conc 30.6 g/dL (32-36); Mean Corpuscular Hgb 26.9 pg (27.0-32.0); Mean Corpuscular Volume 87.9 fL (81-99); Mean Platelet Vol. 10.3 fl (6.2-12.0); Platelet Count 372 K/mm3 (150-450); RBC Distribution Width CV 15.9 % (11.6-14.6); RBC Distribution Width SD 51.6 fl (35.1-43.9); Red Blood Count 4.38 M/mm3 (4.2-5.4); White Blood Count 7.4 K/mm3 (4.4-11.0)
== END ==
LOC: OLS.ACW300 04:00
PROVIDERS: Referring Provider Internal Medicine; Visit Provider Internal Medicine
DX: I10 Essential (primary) hypertension (principal); G93.40 Encephalopathy, unspecified; F79 Unspecified intellectual disabilities; A41.9 Sepsis, unspecified organism; N39.0 Urinary tract infection, site not specified; R29.3 Abnormal posture; R56.9 Unspecified convulsions
CPT/HCPCS: 36415; 85027

== ENCOUNTER → 2020-12-23 05:00 | Outpatient (REF) | payer MEDICARE, MEDICAID, SELFPAY ==
[2020-12-23 09:16] LABS: Cholesterol 226 mg/dL (200); High Density Lipoprotein 49 mg/dL; Triglycerides 230 mg/dL; Very Low Density Lipoprotein 46 mg/dL (5-40)
[2020-12-23 11:09] LABS: Valproic Acid (Depakene) Level 52 ug/mL (50-100)
== END ==
LOC: OLS.ACW300 05:00
PROVIDERS: Visit Provider Internal Medicine
DX: G40.909 Epilepsy, unspecified, not intractable, without status epilepticus (principal); I10 Essential (primary) hypertension
CPT/HCPCS: 36415; 80061; 80164

== ENCOUNTER → 2021-02-16 04:00 | Outpatient (REF) | payer MEDICARE, MEDICAID, SELFPAY ==
[2021-02-16 09:05] LABS: Cholesterol 251 mg/dL (200); High Density Lipoprotein 50 mg/dL; Triglycerides 267 mg/dL; Very Low Density Lipoprotein 53 mg/dL (5-40)
== END ==
LOC: OLS.ACW300 04:00
PROVIDERS: Referring Provider Internal Medicine; Visit Provider Internal Medicine
DX: G93.40 Encephalopathy, unspecified (principal); F79 Unspecified intellectual disabilities; A41.9 Sepsis, unspecified organism; N39.0 Urinary tract infection, site not specified; R29.3 Abnormal posture; R56.9 Unspecified convulsions; I10 Essential (primary) hypertension; I73.9 Peripheral vascular disease, unspecified
CPT/HCPCS: 36415; 80061

== ENCOUNTER → 2021-03-14 05:00 | Outpatient (REF) | payer MEDICARE, MEDICAID, SELFPAY ==
[2021-03-14 09:08] LABS: Hematocrit 40.8 % (37-47); Hemoglobin 12.7 g/dL (12.0-15.0); Mean Corp Hgb Conc 31.1 g/dL (32-36); Mean Corpuscular Hgb 27.6 pg (27.0-32.0); Mean Corpuscular Volume 88.7 fL (81-99); Mean Platelet Vol. 10.7 fl (6.2-12.0); Platelet Count 326 K/mm3 (150-450); RBC Distribution Width CV 16.9 % (11.6-14.6); White Blood Count 7.9 K/mm3 (4.4-11.0)
[2021-03-14 09:13] LABS: ALB/GLOB Ratio 0.8 RATIO (0.9-2.4); AST(SGOT) 15 U/L (15-37); Alanine Aminotransfer ALT/SGPT 27 U/L (13-56); Albumin, Serum 3.7 g/dL (3.2-5.0); Alkaline Phosphatase 66 U/L (45-117); Anion Gap 7 (5-15); BUN 19 mg/dL (7-18); BUN/Creat Ratio 25.8 RATIO (10-20); Calcium,Total 9.4 mg/dL (8.5-10.1); Chloride 100 mmol/L (98-107); Creatinine, Serum 0.74 mg/dL (0.55-1.02); EST Glomerular Filtration Rate 82 mL/min (>60); Est Glom Filt Rate - Afr Amer 100 mL/min (>60); Globulin 4.6 g/dL (2.2-4.2); Glucose 92 mg/dL (74-106); Protein, Total 8.3 g/dL (6.4-8.2); Sodium Level 137 mmol/L (136-145)
== END ==
LOC: OLS.ACW300 05:00
PROVIDERS: Referring Provider Internal Medicine; Visit Provider Internal Medicine
DX: G93.40 Encephalopathy, unspecified (principal); F79 Unspecified intellectual disabilities; A41.9 Sepsis, unspecified organism; N39.0 Urinary tract infection, site not specified; R29.3 Abnormal posture; R56.9 Unspecified convulsions
CPT/HCPCS: 36415; 80053; 85027

== ENCOUNTER → 2021-03-24 05:00 | Outpatient (REF) | payer MEDICARE, MEDICAID, SELFPAY ==
[2021-03-24 08:50] LABS: Valproic Acid (Depakene) Level 47 ug/mL (50-100)
== END ==
LOC: OLS.ACW300 05:00
PROVIDERS: Visit Provider Internal Medicine
DX: F25.9 Schizoaffective disorder, unspecified (principal); G93.40 Encephalopathy, unspecified; F79 Unspecified intellectual disabilities; A41.9 Sepsis, unspecified organism; N39.0 Urinary tract infection, site not specified; R29.3 Abnormal posture; R56.9 Unspecified convulsions
CPT/HCPCS: 36415; 80164

== ENCOUNTER → 2021-03-31 05:00 | Outpatient (REF) | payer MEDICARE, MEDICAID, SELFPAY ==
[2021-03-31 10:03] LABS: Valproic Acid (Depakene) Level 52 ug/mL (50-100)
== END ==
LOC: OLS.ACW300 05:00
PROVIDERS: Referring Provider Internal Medicine; Visit Provider Internal Medicine
DX: G93.40 Encephalopathy, unspecified (principal); F79 Unspecified intellectual disabilities; A41.9 Sepsis, unspecified organism; N39.0 Urinary tract infection, site not specified; R29.3 Abnormal posture; R56.9 Unspecified convulsions
CPT/HCPCS: 36415; 80164

== ENCOUNTER → 2021-06-26 05:00 | Outpatient (REF) | payer MEDICARE, MEDICAID, SELFPAY ==
[2021-06-26 10:16] LABS: Cholesterol 217 mg/dL (200); High Density Lipoprotein 49 mg/dL; Triglycerides 215 mg/dL; Very Low Density Lipoprotein 43 mg/dL (5-40)
[2021-06-26 10:17] LABS: Valproic Acid (Depakene) Level 47 ug/mL (50-100)
== END ==
LOC: OLS.ACW300 05:00
PROVIDERS: Visit Provider Internal Medicine
DX: E03.9 Hypothyroidism, unspecified (principal); G93.40 Encephalopathy, unspecified; F79 Unspecified intellectual disabilities; A41.9 Sepsis, unspecified organism; N39.0 Urinary tract infection, site not specified; R29.3 Abnormal posture; R56.9 Unspecified convulsions
CPT/HCPCS: 36415; 80061; 80164

== ENCOUNTER 2021-08-09 04:00 | Outpatient (REF) | payer MEDICARE, MEDICAID, SELFPAY ==
[2021-08-09 09:59] LABS: Valproic Acid (Depakene) Level 47 ug/mL (50-100)
== END 2021-08-09 23:59 | disposition home or self-care (01) ==
LOC: OLS.ACW300 04:00
PROVIDERS: Referring Provider Internal Medicine; Visit Provider Internal Medicine
DX: G93.40 Encephalopathy, unspecified (principal); A41.9 Sepsis, unspecified organism; R56.9 Unspecified convulsions; F79 Unspecified intellectual disabilities; N39.0 Urinary tract infection, site not specified; R29.3 Abnormal posture
CPT/HCPCS: 36415; 80164

== ENCOUNTER → 2021-08-24 | Outpatient (REF) | payer MEDICARE, MEDICAID, SELFPAY ==
[2021-08-24 09:17] LABS: Hematocrit 40.9 % (37-47); Hemoglobin 13.1 g/dL (12.0-15.0); Mean Corpuscular Hgb 29.2 pg (27.0-32.0); Mean Corpuscular Volume 91.1 fL (81-99); Mean Platelet Vol. 10.6 fl (6.2-12.0); Platelet Count 306 K/mm3 (150-450); RBC Distribution Width CV 15.3 % (11.6-14.6); RBC Distribution Width SD 50.9 fl (35.1-43.9); Red Blood Count 4.49 M/mm3 (4.2-5.4); White Blood Count 6.7 K/mm3 (4.4-11.0)
[2021-08-24 09:47] LABS: ALB/GLOB Ratio 0.8 RATIO (0.9-2.4); AST(SGOT) 16 U/L (15-37); Alanine Aminotransfer ALT/SGPT 20 U/L (13-56); Albumin, Serum 3.2 g/dL (3.2-5.0); Alkaline Phosphatase 67 U/L (45-117); Anion Gap 7 (5-15); BUN 17 mg/dL (7-18); BUN/Creat Ratio 23.5 RATIO (10-20); Calcium,Total 8.7 mg/dL (8.5-10.1); Chloride 106 mmol/L (98-107); Cholesterol 185 mg/dL (200); Creatinine, Serum 0.72 mg/dL (0.55-1.02); EST Glomerular Filtration Rate 84 mL/min (>60); Est Glom Filt Rate - Afr Amer 102 mL/min (>60); Globulin 4.2 g/dL (2.2-4.2); Glucose 92 mg/dL (74-106); High Density Lipoprotein 47 mg/dL; Potassium 3.9 mmol/L (3.5-5.1); Protein, Total 7.4 g/dL (6.4-8.2); Sodium Level 140 mmol/L (136-145); Thyroid Stim Hormone (TSH) 4.64 uIU/mL (0.358-3.74); Triglycerides 217 mg/dL; Very Low Density Lipoprotein 43 mg/dL (5-40)
== END | disposition home or self-care (01) ==
LOC: OLS.ACW300 04:00
PROVIDERS: Referring Provider Internal Medicine; Visit Provider Internal Medicine
DX: G93.40 Encephalopathy, unspecified (principal); R56.9 Unspecified convulsions; F79 Unspecified intellectual disabilities; R29.3 Abnormal posture; R41.841 Cognitive communication deficit; M62.81 Muscle weakness (generalized); R27.9 Unspecified lack of coordination
CPT/HCPCS: 36415; 80053; 80061; 84443; 85027

== ENCOUNTER → 2021-08-31 | Outpatient (REF) | payer MEDICARE, MEDICAID, SELFPAY ==
[2021-08-31 08:55] LABS: ALB/GLOB Ratio 0.6 RATIO (0.9-2.4); AST(SGOT) 17 U/L (15-37); Alanine Aminotransfer ALT/SGPT 22 U/L (13-56); Albumin, Serum 3.1 g/dL (3.2-5.0); Alkaline Phosphatase 82 U/L (45-117); Anion Gap 8 (5-15); BUN 19 mg/dL (7-18); BUN/Creat Ratio 25.6 RATIO (10-20); Calcium,Total 9.1 mg/dL (8.5-10.1); Chloride 102 mmol/L (98-107); Creatinine, Serum 0.74 mg/dL (0.55-1.02); EST Glomerular Filtration Rate 82 mL/min (>60); Est Glom Filt Rate - Afr Amer 99 mL/min (>60); Globulin 4.9 g/dL (2.2-4.2); Glucose 87 mg/dL (74-106); Potassium 4.3 mmol/L (3.5-5.1); Sodium Level 137 mmol/L (136-145)
== END | disposition home or self-care (01) ==
LOC: OLS.ACW300 05:00
PROVIDERS: Visit Provider Internal Medicine
DX: G93.40 Encephalopathy, unspecified (principal); R56.9 Unspecified convulsions; F79 Unspecified intellectual disabilities; R29.3 Abnormal posture; R41.841 Cognitive communication deficit; M62.81 Muscle weakness (generalized); R27.9 Unspecified lack of coordination
CPT/HCPCS: 36415; 80053

== ENCOUNTER → 2021-09-14 | Outpatient (REF) | payer MEDICARE, MEDICAID, SELFPAY ==
[2021-09-14 07:17] LABS: Hematocrit 38.8 % (37-47); Mean Corp Hgb Conc 33.5 g/dL (32-36); Mean Corpuscular Hgb 30.2 pg (27.0-32.0); Mean Platelet Vol. 10.5 fl (6.2-12.0); Platelet Count 303 K/mm3 (150-450); RBC Distribution Width CV 14.9 % (11.6-14.6); RBC Distribution Width SD 49.1 fl (35.1-43.9); Red Blood Count 4.31 M/mm3 (4.2-5.4); White Blood Count 7.8 K/mm3 (4.4-11.0)
[2021-09-14 07:54] LABS: ALB/GLOB Ratio 0.7 RATIO (0.9-2.4); AST(SGOT) 16 U/L (15-37); Alanine Aminotransfer ALT/SGPT 18 U/L (13-56); Albumin, Serum 3.1 g/dL (3.2-5.0); Alkaline Phosphatase 68 U/L (45-117); Anion Gap 5 (5-15); BUN 18 mg/dL (7-18); BUN/Creat Ratio 24.4 RATIO (10-20); Chloride 105 mmol/L (98-107); Creatinine, Serum 0.74 mg/dL (0.55-1.02); EST Glomerular Filtration Rate 82 mL/min (>60); Est Glom Filt Rate - Afr Amer 99 mL/min (>60); Globulin 4.2 g/dL (2.2-4.2); Glucose 85 mg/dL (74-106); Potassium 4.1 mmol/L (3.5-5.1); Protein, Total 7.3 g/dL (6.4-8.2); Sodium Level 138 mmol/L (136-145)
== END | disposition home or self-care (01) ==
LOC: OLS.ACW300 04:00
PROVIDERS: Visit Provider Internal Medicine
DX: G93.40 Encephalopathy, unspecified (principal); R56.9 Unspecified convulsions; F79 Unspecified intellectual disabilities; R29.3 Abnormal posture; R41.841 Cognitive communication deficit; M62.81 Muscle weakness (generalized); R27.9 Unspecified lack of coordination
CPT/HCPCS: 36415; 80053; 85027

== ENCOUNTER 2021-09-20 04:00 | Outpatient (REF) | payer MEDICARE, MEDICAID, SELFPAY ==
[2021-09-20 07:26] LABS: Valproic Acid (Depakene) Level 50 ug/mL (50-100)
== END 2021-09-20 23:59 | disposition home or self-care (01) ==
LOC: OLS.ACW300 04:00
PROVIDERS: Referring Provider Internal Medicine; Visit Provider Internal Medicine
DX: G93.40 Encephalopathy, unspecified (principal); A41.9 Sepsis, unspecified organism; R56.9 Unspecified convulsions; F79 Unspecified intellectual disabilities; N39.0 Urinary tract infection, site not specified; R29.3 Abnormal posture
CPT/HCPCS: 36415; 80164

== ENCOUNTER 2021-09-25 05:00 | Outpatient (REF) | payer MEDICARE, MEDICAID, SELFPAY ==
[2021-09-25 09:10] LABS: Valproic Acid (Depakene) Level 52 ug/mL (50-100)
== END 2021-09-25 23:59 | disposition home or self-care (01) ==
LOC: OLS.ACW300 05:00
PROVIDERS: Visit Provider Internal Medicine
DX: G93.40 Encephalopathy, unspecified (principal); R56.9 Unspecified convulsions; F79 Unspecified intellectual disabilities; R29.3 Abnormal posture; R41.841 Cognitive communication deficit; M62.81 Muscle weakness (generalized); R27.9 Unspecified lack of coordination
CPT/HCPCS: 36415; 80164

== ENCOUNTER → 2021-10-30 | Outpatient (REF) | payer MEDICARE, MEDICAID, SELFPAY ==
[2021-10-30 08:51] LABS: Hematocrit 42.3 % (37-47); Hemoglobin 13.7 g/dL (12.0-15.0); Mean Corp Hgb Conc 32.4 g/dL (32-36); Mean Corpuscular Hgb 29.6 pg (27.0-32.0); Mean Corpuscular Volume 91.4 fL (81-99); Platelet Count 289 K/mm3 (150-450); RBC Distribution Width CV 15.3 % (11.6-14.6); RBC Distribution Width SD 50.8 fl (35.1-43.9); Red Blood Count 4.63 M/mm3 (4.2-5.4)
[2021-10-30 09:15] LABS: Anion Gap 6 (5-15); BUN 21 mg/dL (7-18); BUN/Creat Ratio 31.2 RATIO (10-20); Calcium,Total 9.2 mg/dL (8.5-10.1); Chloride 101 mmol/L (98-107); Creatinine, Serum 0.67 mg/dL (0.55-1.02); EST Glomerular Filtration Rate 91 mL/min (>60); Est Glom Filt Rate - Afr Amer 111 mL/min (>60); Glucose 94 mg/dL (74-106); Potassium 4.3 mmol/L (3.5-5.1); Sodium Level 138 mmol/L (136-145)
== END | disposition home or self-care (01) ==
LOC: OLS.ACW300 04:00
PROVIDERS: Referring Provider Internal Medicine; Visit Provider Internal Medicine
DX: G93.40 Encephalopathy, unspecified (principal); R56.9 Unspecified convulsions; F79 Unspecified intellectual disabilities; R29.3 Abnormal posture; R41.841 Cognitive communication deficit; M62.81 Muscle weakness (generalized); R27.9 Unspecified lack of coordination
CPT/HCPCS: 36415; 80048; 85027

== ENCOUNTER → 2021-12-12 | Outpatient (REF) | payer MEDICARE, MEDICAID, SELFPAY ==
[2021-12-12 08:55] LABS: Hematocrit 40.9 % (37-47); Hemoglobin 12.9 g/dL (12.0-15.0); Mean Corp Hgb Conc 31.5 g/dL (32-36); Mean Corpuscular Hgb 29.1 pg (27.0-32.0); Mean Corpuscular Volume 92.1 fL (81-99); Mean Platelet Vol. 11.5 fl (6.2-12.0); Platelet Count 288 K/mm3 (150-450); RBC Distribution Width CV 15.8 % (11.6-14.6); RBC Distribution Width SD 53.3 fl (35.1-43.9); Red Blood Count 4.44 M/mm3 (4.2-5.4); White Blood Count 7.7 K/mm3 (4.4-11.0)
[2021-12-12 09:04] LABS: Anion Gap 6 (5-15); BUN 15 mg/dL (7-18); BUN/Creat Ratio 24.4 RATIO (10-20); Calcium,Total 9.1 mg/dL (8.5-10.1); Chloride 102 mmol/L (98-107); Creatinine, Serum 0.61 mg/dL (0.55-1.02); EST Glomerular Filtration Rate 102 mL/min (>60); Est Glom Filt Rate - Afr Amer 123 mL/min (>60); Glucose 91 mg/dL (74-106); Potassium 3.8 mmol/L (3.5-5.1); Sodium Level 137 mmol/L (136-145)
== END | disposition home or self-care (01) ==
LOC: OLS.ACW300 05:00
PROVIDERS: Visit Provider Internal Medicine
DX: G93.40 Encephalopathy, unspecified (principal); R56.9 Unspecified convulsions; F79 Unspecified intellectual disabilities; R29.3 Abnormal posture; R41.841 Cognitive communication deficit; M62.81 Muscle weakness (generalized); R27.9 Unspecified lack of coordination
CPT/HCPCS: 36415; 80048; 85027

== ENCOUNTER → 2021-12-25 | Outpatient (REF) | payer MEDICARE, MEDICAID, SELFPAY ==
[2021-12-25 09:12] LABS: Hematocrit 43.5 % (37-47); Mean Corp Hgb Conc 32.2 g/dL (32-36); Mean Corpuscular Hgb 29.5 pg (27.0-32.0); Mean Corpuscular Volume 91.8 fL (81-99); Platelet Count 277 K/mm3 (150-450); RBC Distribution Width CV 15.2 % (11.6-14.6); RBC Distribution Width SD 51.7 fl (35.1-43.9); Red Blood Count 4.74 M/mm3 (4.2-5.4); White Blood Count 10.2 K/mm3 (4.4-11.0)
[2021-12-25 09:34] LABS: Valproic Acid (Depakene) Level 44 ug/mL (50-100)
[2021-12-25 09:42] LABS: ALB/GLOB Ratio 0.7 RATIO (0.9-2.4); AST(SGOT) 15 U/L (15-37); Alanine Aminotransfer ALT/SGPT 18 U/L (13-56); Albumin, Serum 3.1 g/dL (3.2-5.0); Alkaline Phosphatase 68 U/L (45-117); Anion Gap 6 (5-15); BUN 22 mg/dL (7-18); BUN/Creat Ratio 31.7 RATIO (10-20); Calcium,Total 9.7 mg/dL (8.5-10.1); Chloride 105 mmol/L (98-107); Cholesterol 220 mg/dL (200); Creatinine, Serum 0.69 mg/dL (0.55-1.02); EST Glomerular Filtration Rate 88 mL/min (>60); Est Glom Filt Rate - Afr Amer 107 mL/min (>60); Globulin 4.7 g/dL (2.2-4.2); Glucose 86 mg/dL (74-106); High Density Lipoprotein 45 mg/dL; Potassium 4.6 mmol/L (3.5-5.1); Protein, Total 7.8 g/dL (6.4-8.2); Sodium Level 137 mmol/L (136-145); Triglycerides 330 mg/dL; Very Low Density Lipoprotein 66 mg/dL (5-40)
== END | disposition home or self-care (01) ==
LOC: OLS.ACW300 05:00
PROVIDERS: Visit Provider Internal Medicine
DX: G93.40 Encephalopathy, unspecified (principal); R56.9 Unspecified convulsions; F79 Unspecified intellectual disabilities; R29.3 Abnormal posture; R41.841 Cognitive communication deficit; M62.81 Muscle weakness (generalized); R27.9 Unspecified lack of coordination
CPT/HCPCS: 36415; 80053; 80061; 80164; 85027

== ENCOUNTER → 2022-01-25 | Outpatient (REF) | payer MEDICARE, MEDICAID, SELFPAY ==
[2022-01-25 08:51] LABS: Valproic Acid (Depakene) Level 40 ug/mL (50-100)
== END | disposition home or self-care (01) ==
LOC: OLS.ACW300 05:00
PROVIDERS: Visit Provider Internal Medicine
DX: G93.40 Encephalopathy, unspecified (principal); F79 Unspecified intellectual disabilities; R29.3 Abnormal posture; R41.841 Cognitive communication deficit; M62.81 Muscle weakness (generalized); R27.9 Unspecified lack of coordination
CPT/HCPCS: 36415; 80164

== ENCOUNTER → 2022-01-30 | Outpatient (REF) | payer MEDICARE, MEDICAID, SELFPAY ==
[2022-01-30 06:47] LABS: Hematocrit 39.4 % (37-47); Hemoglobin 12.9 g/dL (12.0-15.0); Mean Corp Hgb Conc 32.7 g/dL (32-36); Mean Corpuscular Hgb 30.1 pg (27.0-32.0); Mean Corpuscular Volume 91.8 fL (81-99); Mean Platelet Vol. 10.3 fl (6.2-12.0); Platelet Count 246 K/mm3 (150-450); RBC Distribution Width CV 15.3 % (11.6-14.6); RBC Distribution Width SD 51.7 fl (35.1-43.9); Red Blood Count 4.29 M/mm3 (4.2-5.4); White Blood Count 9.2 K/mm3 (4.4-11.0)
[2022-01-30 07:11] LABS: Anion Gap 8 (5-15); BUN 21 mg/dL (7-18); BUN/Creat Ratio 33.9 RATIO (10-20); Calcium,Total 9.4 mg/dL (8.5-10.1); Chloride 104 mmol/L (98-107); Creatinine, Serum 0.62 mg/dL (0.55-1.02); EST Glomerular Filtration Rate 101 mL/min (>60); Est Glom Filt Rate - Afr Amer 122 mL/min (>60); Glucose 82 mg/dL (74-106); Potassium 4.3 mmol/L (3.5-5.1); Sodium Level 138 mmol/L (136-145)
== END | disposition home or self-care (01) ==
LOC: OLS.ACW300 05:00
PROVIDERS: Referring Provider Internal Medicine; Visit Provider Internal Medicine
DX: G93.40 Encephalopathy, unspecified (principal); R56.9 Unspecified convulsions; F79 Unspecified intellectual disabilities; R29.3 Abnormal posture; R41.841 Cognitive communication deficit; M62.81 Muscle weakness (generalized); R27.9 Unspecified lack of coordination
CPT/HCPCS: 36415; 80048; 85027

== ENCOUNTER 2022-02-21 06:46 | Outpatient (REF) | payer MEDICARE, MEDICAID, SELFPAY ==
[2022-02-21 11:33] LABS: Hematocrit 44.4 % (37-47); Hemoglobin 13.9 g/dL (12.0-15.0); Mean Corp Hgb Conc 31.3 g/dL (32-36); Mean Corpuscular Hgb 29.3 pg (27.0-32.0); Mean Corpuscular Volume 93.7 fL (81-99); Mean Platelet Vol. 10.5 fl (6.2-12.0); Platelet Count 311 K/mm3 (150-450); RBC Distribution Width CV 15.1 % (11.6-14.6); RBC Distribution Width SD 52.2 fl (35.1-43.9); Red Blood Count 4.74 M/mm3 (4.2-5.4); White Blood Count 9.1 K/mm3 (4.4-11.0)
[2022-02-21 11:48] LABS: Cholesterol 196 mg/dL (200); High Density Lipoprotein 48 mg/dL; Triglycerides 208 mg/dL; Very Low Density Lipoprotein 42 mg/dL (5-40)
== END 2022-02-21 23:59 | disposition home or self-care (01) ==
LOC: OLS.ACW300 06:46
PROVIDERS: Visit Provider Internal Medicine
DX: G93.40 Encephalopathy, unspecified (principal); R56.9 Unspecified convulsions; F79 Unspecified intellectual disabilities; R29.3 Abnormal posture; R41.841 Cognitive communication deficit; M62.81 Muscle weakness (generalized); R27.9 Unspecified lack of coordination; I10 Essential (primary) hypertension
CPT/HCPCS: 36415; 80061; 85027

== ENCOUNTER → 2022-03-26 | Outpatient (REF) | payer MEDICARE, MEDICAID, SELFPAY ==
[2022-03-26 09:08] LABS: Valproic Acid (Depakene) Level 51 ug/mL (50-100)
== END ==
LOC: OLS.ACW300 05:00
PROVIDERS: Visit Provider Internal Medicine
DX: G93.40 Encephalopathy, unspecified (principal); R56.9 Unspecified convulsions; F79 Unspecified intellectual disabilities; R29.3 Abnormal posture; R41.841 Cognitive communication deficit; M62.81 Muscle weakness (generalized); R27.9 Unspecified lack of coordination
CPT/HCPCS: 36415; 80164

== ENCOUNTER → 2022-04-19 | Outpatient (REF) | payer MEDICARE, MEDICAID, SELFPAY ==
[2022-04-19 09:40] LABS: Hematocrit 39.4 % (37-47); Hemoglobin 12.3 g/dL (12.0-15.0); Mean Corp Hgb Conc 31.2 g/dL (32-36); Mean Corpuscular Volume 96.1 fL (81-99); Mean Platelet Vol. 10.2 fl (6.2-12.0); Platelet Count 557 K/mm3 (150-450); RBC Distribution Width SD 55.3 fl (35.1-43.9); White Blood Count 14.5 K/mm3 (4.4-11.0)
[2022-04-19 09:49] LABS: Anion Gap 8 (5-15); BUN 12 mg/dL (7-18); BUN/Creat Ratio 14.6 RATIO (10-20); Calcium,Total 9.2 mg/dL (8.5-10.1); Chloride 106 mmol/L (98-107); Creatinine, Serum 0.82 mg/dL (0.55-1.02); EST Glomerular Filtration Rate 73 mL/min (>60); Est Glom Filt Rate - Afr Amer 88 mL/min (>60); Glucose 100 mg/dL (74-106); Potassium 3.4 mmol/L (3.5-5.1); Sodium Level 142 mmol/L (136-145)
== END ==
LOC: OLS.ACW300 05:00
PROVIDERS: Visit Provider Internal Medicine
DX: G93.40 Encephalopathy, unspecified (principal); F79 Unspecified intellectual disabilities; R29.3 Abnormal posture; R41.841 Cognitive communication deficit; M62.81 Muscle weakness (generalized); R27.9 Unspecified lack of coordination
CPT/HCPCS: 36415; 80048; 85027

== ENCOUNTER → 2022-04-23 | Outpatient (REF) | payer MEDICARE, MEDICAID, SELFPAY ==
[2022-04-23 09:33] LABS: Hematocrit 35.9 % (37-47); Hemoglobin 11.3 g/dL (12.0-15.0); Mean Corp Hgb Conc 31.5 g/dL (32-36); Mean Corpuscular Hgb 30.4 pg (27.0-32.0); Mean Corpuscular Volume 96.5 fL (81-99); Mean Platelet Vol. 10.5 fl (6.2-12.0); Platelet Count 408 K/mm3 (150-450); RBC Distribution Width CV 15.7 % (11.6-14.6); RBC Distribution Width SD 55.3 fl (35.1-43.9); Red Blood Count 3.72 M/mm3 (4.2-5.4); White Blood Count 11.2 K/mm3 (4.4-11.0)
[2022-04-23 09:45] LABS: Anion Gap 8 (5-15); BUN 11 mg/dL (7-18); BUN/Creat Ratio 15.3 RATIO (10-20); Calcium,Total 9.1 mg/dL (8.5-10.1); Chloride 105 mmol/L (98-107); Creatinine, Serum 0.72 mg/dL (0.55-1.02); EST Glomerular Filtration Rate 85 mL/min (>60); Est Glom Filt Rate - Afr Amer 103 mL/min (>60); Glucose 77 mg/dL (74-106); Potassium 3.7 mmol/L (3.5-5.1); Sodium Level 141 mmol/L (136-145)
[2022-04-24 04:31] LABS: Cholesterol 175 mg/dL (200); High Density Lipoprotein 37 mg/dL; Triglycerides 179 mg/dL; Very Low Density Lipoprotein 36 mg/dL (5-40)
== END ==
LOC: OLS.ACW300 04:00
PROVIDERS: Referring Provider Internal Medicine; Visit Provider Internal Medicine
DX: G93.40 Encephalopathy, unspecified (principal); F79 Unspecified intellectual disabilities; R29.3 Abnormal posture; R56.9 Unspecified convulsions; R41.841 Cognitive communication deficit; M62.81 Muscle weakness (generalized); R27.9 Unspecified lack of coordination; Z79.899 Other long term (current) drug therapy
CPT/HCPCS: 36415; 80048; 80061; 85027

== ENCOUNTER → 2022-04-26 | Outpatient (REF) | payer MEDICARE, MEDICAID, SELFPAY ==
[2022-04-26 08:37] LABS: Mean Corp Hgb Conc 31.6 g/dL (32-36); Mean Platelet Vol. 11.2 fl (6.2-12.0); Platelet Count 379 K/mm3 (150-450); RBC Distribution Width CV 14.9 % (11.6-14.6); RBC Distribution Width SD 51.7 fl (35.1-43.9); White Blood Count 8.9 K/mm3 (4.4-11.0)
[2022-04-26 08:48] LABS: Valproic Acid (Depakene) Level 63 ug/mL (50-100)
== END ==
LOC: OLS.ACW300 05:00
PROVIDERS: Visit Provider Internal Medicine
DX: G93.40 Encephalopathy, unspecified (principal); R29.3 Abnormal posture; R41.841 Cognitive communication deficit; R56.9 Unspecified convulsions; M62.81 Muscle weakness (generalized); R27.9 Unspecified lack of coordination
CPT/HCPCS: 36415; 80164; 85027

== ENCOUNTER → 2022-04-27 | Outpatient (REF) | payer MEDICARE, MEDICAID, SELFPAY ==
[2022-04-27 07:56] LABS: ALB/GLOB Ratio 0.6 RATIO (0.9-2.4); AST(SGOT) 17 U/L (15-37); Alanine Aminotransfer ALT/SGPT 22 U/L (13-56); Albumin, Serum 2.9 g/dL (3.2-5.0); Alkaline Phosphatase 68 U/L (45-117); Anion Gap 9 (5-15); BUN 16 mg/dL (7-18); BUN/Creat Ratio 21.3 RATIO (10-20); Calcium,Total 9.2 mg/dL (8.5-10.1); Chloride 103 mmol/L (98-107); Creatinine, Serum 0.75 mg/dL (0.55-1.02); EST Glomerular Filtration Rate 80 mL/min (>60); Est Glom Filt Rate - Afr Amer 97 mL/min (>60); Globulin 5.1 g/dL (2.2-4.2); Glucose 79 mg/dL (74-106); Potassium 3.9 mmol/L (3.5-5.1); Sodium Level 137 mmol/L (136-145)
== END ==
LOC: OLS.ACW300 06:00
PROVIDERS: Visit Provider Internal Medicine
DX: G93.40 Encephalopathy, unspecified (principal); R56.9 Unspecified convulsions; F79 Unspecified intellectual disabilities; R29.3 Abnormal posture; R41.841 Cognitive communication deficit; M62.81 Muscle weakness (generalized); R27.9 Unspecified lack of coordination
CPT/HCPCS: 36415; 80053

== ENCOUNTER → 2022-07-26 | Outpatient (REF) | payer MEDICARE, MEDICAID, SELFPAY ==
[2022-07-26 09:37] LABS: Valproic Acid (Depakene) Level 44 ug/mL (50-100)
== END ==
LOC: OLS.ACW300 05:00
PROVIDERS: Visit Provider Internal Medicine
DX: G93.40 Encephalopathy, unspecified (principal); F79 Unspecified intellectual disabilities; R29.3 Abnormal posture; R56.9 Unspecified convulsions; R41.841 Cognitive communication deficit; M62.81 Muscle weakness (generalized); R27.9 Unspecified lack of coordination
CPT/HCPCS: 36415; 80164

== ENCOUNTER → 2022-07-27 | Outpatient (REF) | payer MEDICARE, MEDICAID, SELFPAY ==
[2022-07-27 07:17] LABS: Hematocrit 36.6 % (37-47); Hemoglobin 11.6 g/dL (12.0-15.0); Mean Corp Hgb Conc 31.7 g/dL (32-36); Mean Corpuscular Hgb 30.1 pg (27.0-32.0); Mean Corpuscular Volume 95.1 fL (81-99); Mean Platelet Vol. 10.9 fl (6.2-12.0); Platelet Count 305 K/mm3 (150-450); RBC Distribution Width CV 14.7 % (11.6-14.6); RBC Distribution Width SD 51.2 fl (35.1-43.9); Red Blood Count 3.85 M/mm3 (4.2-5.4); White Blood Count 9.6 K/mm3 (4.4-11.0)
[2022-07-27 07:27] LABS: Anion Gap 4 (5-15); BUN 23 mg/dL (7-18); BUN/Creat Ratio 31.3 RATIO (10-20); Calcium,Total 9.1 mg/dL (8.5-10.1); Chloride 106 mmol/L (98-107); Creatinine, Serum 0.73 mg/dL (0.55-1.02); EST Glomerular Filtration Rate 83 mL/min (>60); Est Glom Filt Rate - Afr Amer 100 mL/min (>60); Glucose 91 mg/dL (74-106); Potassium 4.1 mmol/L (3.5-5.1); Sodium Level 139 mmol/L (136-145)
[2022-07-27 07:28] LABS: Valproic Acid (Depakene) Level 44 ug/mL (50-100)
== END ==
LOC: OLS.ACW300 04:35
PROVIDERS: Visit Provider Internal Medicine
DX: J18.9 Pneumonia, unspecified organism (principal); A41.9 Sepsis, unspecified organism; F79 Unspecified intellectual disabilities; R29.3 Abnormal posture; R56.9 Unspecified convulsions; R41.841 Cognitive communication deficit; M62.81 Muscle weakness (generalized)
CPT/HCPCS: 36415; 80048; 80164; 85027

== ENCOUNTER → 2022-09-20 | Outpatient (REF) | payer MEDICARE, MEDICAID, SELFPAY ==
[2022-09-20 08:53] LABS: Valproic Acid (Depakene) Level 37 ug/mL (50-100)
[2022-09-20 08:56] LABS: Cholesterol 241 mg/dL (200); High Density Lipoprotein 42 mg/dL; Triglycerides 395 mg/dL; Very Low Density Lipoprotein 79 mg/dL (5-40)
[2022-09-20 09:02] LABS: Hemoglobin A1c 5.3 % (3.8-5.6)
== END ==
LOC: OLS.ACW300 05:00
PROVIDERS: Visit Provider Internal Medicine
DX: J18.9 Pneumonia, unspecified organism (principal); A41.9 Sepsis, unspecified organism; F79 Unspecified intellectual disabilities; R29.3 Abnormal posture; R56.9 Unspecified convulsions; R41.841 Cognitive communication deficit; M62.81 Muscle weakness (generalized); Z79.899 Other long term (current) drug therapy
CPT/HCPCS: 36415; 80061; 80164; 83036

== ENCOUNTER → 2022-09-24 | Outpatient (REF) | payer MEDICARE, MEDICAID, SELFPAY ==
[2022-09-24 07:47] LABS: Valproic Acid (Depakene) Level 45 ug/mL (50-100)
== END ==
LOC: OLS.ACW300 05:00
PROVIDERS: Visit Provider Internal Medicine
DX: G93.40 Encephalopathy, unspecified (principal); F79 Unspecified intellectual disabilities; R29.3 Abnormal posture; R56.9 Unspecified convulsions; R41.841 Cognitive communication deficit; M62.81 Muscle weakness (generalized); R27.9 Unspecified lack of coordination
CPT/HCPCS: 36415; 80164

== ENCOUNTER → 2022-10-22 | Outpatient (REF) | payer MEDICARE, MEDICAID, SELFPAY ==
[2022-10-22 09:16] LABS: Cholesterol 222 mg/dL (200); High Density Lipoprotein 50 mg/dL; Triglycerides 176 mg/dL; Very Low Density Lipoprotein 35 mg/dL (5-40)
== END ==
LOC: OLS.ACW300 04:00
PROVIDERS: Referring Provider Internal Medicine; Visit Provider Internal Medicine
DX: G93.40 Encephalopathy, unspecified (principal); F79 Unspecified intellectual disabilities; R29.3 Abnormal posture; R56.9 Unspecified convulsions; R41.841 Cognitive communication deficit; M62.81 Muscle weakness (generalized); R27.9 Unspecified lack of coordination; Z79.899 Other long term (current) drug therapy
CPT/HCPCS: 36415; 80061

== ENCOUNTER → 2022-10-24 | Outpatient (REF) | payer MEDICARE, MEDICAID, SELFPAY ==
[2022-10-24 09:58] LABS: Valproic Acid (Depakene) Level 33 ug/mL (50-100)
== END ==
LOC: OLS.ACW300 05:00
PROVIDERS: Visit Provider Internal Medicine
DX: G93.40 Encephalopathy, unspecified (principal); F79 Unspecified intellectual disabilities; R29.3 Abnormal posture; R56.9 Unspecified convulsions; R41.841 Cognitive communication deficit; M62.81 Muscle weakness (generalized); Z79.899 Other long term (current) drug therapy
CPT/HCPCS: 36415; 80164

== ENCOUNTER → 2022-12-18 | Outpatient (REF) | payer MEDICARE, MEDICAID, SELFPAY ==
[2022-12-18 09:04] LABS: Valproic Acid (Depakene) Level 50 ug/mL (50-100)
[2022-12-18 09:12] LABS: Thyroid Stim Hormone (TSH) 4.73 uIU/mL (0.358-3.74)
== END ==
LOC: OLS.ACW300 05:00
PROVIDERS: Visit Provider Internal Medicine
DX: J18.9 Pneumonia, unspecified organism (principal); A41.9 Sepsis, unspecified organism; F79 Unspecified intellectual disabilities; R29.3 Abnormal posture; R56.9 Unspecified convulsions; R41.841 Cognitive communication deficit; M62.81 Muscle weakness (generalized); Z79.899 Other long term (current) drug therapy
CPT/HCPCS: 36415; 80164; 84443

== ENCOUNTER → 2023-01-22 | Outpatient (REF) | payer MEDICARE, MEDICAID, SELFPAY ==
[2023-01-22 08:09] LABS: Hemoglobin 12.9 g/dL (12.0-15.0); Mean Corp Hgb Conc 31.5 g/dL (32-36); Mean Corpuscular Hgb 29.6 pg (27.0-32.0); Mean Platelet Vol. 9.6 fl (6.2-12.0); Platelet Count 341 K/mm3 (150-450); RBC Distribution Width CV 15.9 % (11.6-14.6); RBC Distribution Width SD 54.7 fl (35.1-43.9); Red Blood Count 4.36 M/mm3 (4.2-5.4); White Blood Count 8.6 K/mm3 (4.4-11.0)
[2023-01-22 08:19] LABS: Anion Gap 6 (5-15); BUN 28 mg/dL (7-18); BUN/Creat Ratio 39.3 RATIO (10-20); Calcium,Total 9.6 mg/dL (8.5-10.1); Chloride 105 mmol/L (98-107); Creatinine, Serum 0.71 mg/dL (0.55-1.02); EST Glomerular Filtration Rate 85 mL/min (>60); Est Glom Filt Rate - Afr Amer 103 mL/min (>60); Glucose 82 mg/dL (74-106); Potassium 4.5 mmol/L (3.5-5.1); Sodium Level 138 mmol/L (136-145)
== END ==
LOC: OLS.ACW300 05:00
PROVIDERS: Visit Provider Internal Medicine
DX: Z79.899 Other long term (current) drug therapy (principal)
CPT/HCPCS: 36415; 80048; 85027

== ENCOUNTER → 2023-01-24 | Outpatient (REF) | payer SELFPAY | LOC: OLS.ACW100 05:00 | PROVIDERS: Visit Provider Internal Medicine | DX: J18.9 Pneumonia, unspecified organism (principal); A41.9 Sepsis, unspecified organism; F79 Unspecified intellectual disabilities; R29.3 Abnormal posture; R56.9 Unspecified convulsions; R41.841 Cognitive communication deficit; M62.81 Muscle weakness (generalized) | CPT/HCPCS: 36415; 80164 ==

== ENCOUNTER → 2023-01-25 | Outpatient (REF) | payer MEDICARE, MEDICAID, SELFPAY ==
[2023-01-25 08:36] LABS: Valproic Acid (Depakene) Level 58 ug/mL (50-100)
== END ==
LOC: OLS.ACW300 05:00
PROVIDERS: Visit Provider Internal Medicine
DX: J18.9 Pneumonia, unspecified organism (principal); A41.9 Sepsis, unspecified organism; F79 Unspecified intellectual disabilities; R29.3 Abnormal posture; R56.9 Unspecified convulsions; R41.841 Cognitive communication deficit; M62.81 Muscle weakness (generalized); Z79.899 Other long term (current) drug therapy
CPT/HCPCS: 36415; 80164

== ENCOUNTER → 2023-03-06 | Outpatient (REF) | payer MEDICARE, MEDICAID, SELFPAY | LOC: OLS.ACW300 16:00 | PROVIDERS: Visit Provider Internal Medicine | DX: Z79.899 Other long term (current) drug therapy (principal) | CPT/HCPCS: 87086; 87088; 87186 ==

== ENCOUNTER → 2023-03-20 | Outpatient (REF) | payer MEDICARE, MEDICAID, SELFPAY ==
[2023-03-20 09:34] LABS: Valproic Acid (Depakene) Level 53 ug/mL (50-100)
[2023-03-20 09:39] LABS: Cholesterol 184 mg/dL (200); Hemoglobin A1c 5.3 % (3.8-5.6); High Density Lipoprotein 40 mg/dL; Triglycerides 289 mg/dL; Very Low Density Lipoprotein 58 mg/dL (5-40)
== END ==
LOC: OLS.ACW300 05:00
PROVIDERS: Visit Provider Internal Medicine
DX: J18.9 Pneumonia, unspecified organism (principal); A41.9 Sepsis, unspecified organism; R56.9 Unspecified convulsions; M62.81 Muscle weakness (generalized); R41.841 Cognitive communication deficit; Z79.899 Other long term (current) drug therapy
CPT/HCPCS: 36415; 80061; 80164; 83036

== ENCOUNTER → 2023-04-24 | Outpatient (REF) | payer MEDICARE, MEDICAID, SELFPAY ==
[2023-04-24 09:27] LABS: Cholesterol 169 mg/dL (200); High Density Lipoprotein 35 mg/dL; Triglycerides 242 mg/dL; Very Low Density Lipoprotein 48 mg/dL (5-40)
== END ==
LOC: OLS.ACW300 05:00
PROVIDERS: Visit Provider Internal Medicine
DX: F25.9 Schizoaffective disorder, unspecified (principal); E03.9 Hypothyroidism, unspecified; K21.9 Gastro-esophageal reflux disease without esophagitis; E46 Unspecified protein-calorie malnutrition; I73.9 Peripheral vascular disease, unspecified; Z79.899 Other long term (current) drug therapy
CPT/HCPCS: 36415; 80061

== ENCOUNTER → 2023-04-26 | Outpatient (REF) | payer MEDICARE, MEDICAID, SELFPAY ==
[2023-04-26 10:04] LABS: Valproic Acid (Depakene) Level 54 ug/mL (50-100)
== END ==
LOC: OLS.ACW300 05:00
PROVIDERS: Visit Provider Internal Medicine
DX: F25.9 Schizoaffective disorder, unspecified (principal); R56.9 Unspecified convulsions
CPT/HCPCS: 36415; 80164

== ENCOUNTER → 2023-05-23 | Outpatient (REF) | payer MEDICARE, MEDICAID, SELFPAY ==
[2023-05-23 09:35] LABS: Hematocrit 37.7 % (37-47); Hemoglobin 11.6 g/dL (12.0-15.0); Mean Corp Hgb Conc 30.8 g/dL (32-36); Mean Corpuscular Hgb 28.7 pg (27.0-32.0); Mean Corpuscular Volume 93.3 fL (81-99); Mean Platelet Vol. 10.5 fl (6.2-12.0); Platelet Count 266 K/mm3 (150-450); RBC Distribution Width CV 15.7 % (11.6-14.6); RBC Distribution Width SD 54.2 fl (35.1-43.9); Red Blood Count 4.04 M/mm3 (4.2-5.4)
[2023-05-23 09:45] LABS: ALB/GLOB Ratio 0.7 RATIO (0.9-2.4); AST(SGOT) 8 U/L (15-37); Alanine Aminotransfer ALT/SGPT 18 U/L (13-56); Albumin, Serum 3.1 g/dL (3.2-5.0); Alkaline Phosphatase 65 U/L (45-117); Anion Gap 6 (5-15); BUN 26 mg/dL (7-18); BUN/Creat Ratio 35.9 RATIO (10-20); Calcium,Total 9.4 mg/dL (8.5-10.1); Chloride 105 mmol/L (98-107); Creatinine, Serum 0.72 mg/dL (0.55-1.02); EST Glomerular Filtration Rate 84 mL/min (>60); Est Glom Filt Rate - Afr Amer 101 mL/min (>60); Globulin 4.5 g/dL (2.2-4.2); Glucose 89 mg/dL (74-106); Potassium 4.3 mmol/L (3.5-5.1); Protein, Total 7.6 g/dL (6.4-8.2); Sodium Level 139 mmol/L (136-145)
[2023-05-23 11:31] LABS: Color, Urine Yellow (Yellow); Glucose, Dipstick Normal (Normal); Ketone-Dipstick Negative (Negative); Leukocyte Esterase-Dipstick 500 /ul (Negative); Nitrite-Dipstick Negative (Negative); Occult Blood-Urine 10 /ul (Negative); Protein-Dipstick Negative (Negative); Urine Bilirubin Dipstick Negative (Negative); Urine Clarity Cloudy (Clear); Urine Urobilinogen Normal (Normal)
== END ==
LOC: OLS.ACW300 05:00
PROVIDERS: Visit Provider Internal Medicine
DX: Z79.899 Other long term (current) drug therapy (principal)
CPT/HCPCS: 36415; 80053; 81002; 85027; 87086; 87088; 87186

== ENCOUNTER → 2023-05-27 | Outpatient (REF) | payer MEDICARE, MEDICAID, SELFPAY ==
[2023-05-27 08:59] LABS: Hematocrit 39.8 % (37-47); Hemoglobin 12.6 g/dL (12.0-15.0); Mean Corp Hgb Conc 31.7 g/dL (32-36); Mean Corpuscular Hgb 29.1 pg (27.0-32.0); Mean Corpuscular Volume 91.9 fL (81-99); Mean Platelet Vol. 10.3 fl (6.2-12.0); Platelet Count 294 K/mm3 (150-450); RBC Distribution Width CV 15.5 % (11.6-14.6); RBC Distribution Width SD 52.9 fl (35.1-43.9); Red Blood Count 4.33 M/mm3 (4.2-5.4); White Blood Count 7.1 K/mm3 (4.4-11.0)
[2023-05-27 09:17] LABS: Anion Gap 5 (5-15); BUN 35 mg/dL (7-18); BUN/Creat Ratio 40.3 RATIO (10-20); Calcium,Total 9.5 mg/dL (8.5-10.1); Chloride 106 mmol/L (98-107); Creatinine, Serum 0.87 mg/dL (0.55-1.02); EST Glomerular Filtration Rate 68 mL/min (>60); Est Glom Filt Rate - Afr Amer 82 mL/min (>60); Glucose 92 mg/dL (74-106); Potassium 4.6 mmol/L (3.5-5.1); Sodium Level 138 mmol/L (136-145)
== END ==
LOC: OLS.ACW300 05:00
PROVIDERS: Visit Provider Internal Medicine
DX: Z79.899 Other long term (current) drug therapy (principal)
CPT/HCPCS: 36415; 80048; 85027

== ENCOUNTER → 2023-07-31 | Outpatient (REF) | payer MEDICARE, MEDICAID, SELFPAY ==
[2023-07-31 08:32] LABS: Color, Urine Yellow (Yellow); Glucose, Dipstick Normal (Normal); Ketone-Dipstick Negative (Negative); Leukocyte Esterase-Dipstick 500 /ul (Negative); Nitrite-Dipstick Negative (Negative); Occult Blood-Urine 10 /ul (Negative); Protein-Dipstick Negative (Negative); Urine Bilirubin Dipstick Negative (Negative); Urine Clarity Sl. Cloudy (Clear); Urine Urobilinogen Normal (Normal); Urine pH 6.5 (5.0 - 8.0)
[2023-07-31 08:38] LABS: Red Blood Cells-Urine 0-5 SEEN /hpf (0-5); Squamous Epithelial Cells - UA 0-5 SEEN /hpf (5-10); White Blood Cells 25-50 SEEN /hpf (0-5)
[2023-07-31 08:39] LABS: Bacteria 1+ /hpf (None Seen); Mucous, Urine RARE /hpf (<or=2+)
== END ==
LOC: OLS.ACW300 05:00
PROVIDERS: Visit Provider Internal Medicine
DX: R41.82 Altered mental status, unspecified (principal)
CPT/HCPCS: 81001; 87086; 87088; 87186

== ENCOUNTER → 2023-08-26 | Outpatient (REF) | payer MEDICARE, MEDICAID, SELFPAY ==
[2023-08-26 09:21] LABS: Hemoglobin 12.1 g/dL (12.0-15.0); Mean Corp Hgb Conc 31.8 g/dL (32-36); Mean Corpuscular Hgb 27.8 pg (27.0-32.0); Mean Corpuscular Volume 87.2 fL (81-99); Mean Platelet Vol. 9.8 fl (6.2-12.0); Platelet Count 375 K/mm3 (150-450); RBC Distribution Width CV 15.7 % (11.6-14.6); RBC Distribution Width SD 49.6 fl (35.1-43.9); Red Blood Count 4.36 M/mm3 (4.2-5.4); White Blood Count 7.3 K/mm3 (4.4-11.0)
[2023-08-26 09:48] LABS: ALB/GLOB Ratio 0.7 RATIO (0.9-2.4); AST(SGOT) 12 U/L (15-37); Alanine Aminotransfer ALT/SGPT 16 U/L (13-56); Albumin, Serum 3.2 g/dL (3.2-5.0); Alkaline Phosphatase 69 U/L (45-117); Anion Gap 5 (5-15); BUN 29 mg/dL (7-18); BUN/Creat Ratio 34.8 RATIO (10-20); Calcium,Total 9.5 mg/dL (8.5-10.1); Chloride 105 mmol/L (98-107); Creatinine, Serum 0.83 mg/dL (0.55-1.02); EST Glomerular Filtration Rate 71 mL/min (>60); Est Glom Filt Rate - Afr Amer 86 mL/min (>60); Globulin 4.4 g/dL (2.2-4.2); Glucose 77 mg/dL (74-106); Protein, Total 7.6 g/dL (6.4-8.2); Sodium Level 139 mmol/L (136-145)
== END ==
LOC: OLS.ACW300 05:00
PROVIDERS: Visit Provider Internal Medicine
DX: A41.9 Sepsis, unspecified organism (principal); R41.841 Cognitive communication deficit; M62.81 Muscle weakness (generalized); R56.9 Unspecified convulsions
CPT/HCPCS: 36415; 80053; 85027

== ENCOUNTER → 2023-08-29 | Outpatient (REF) | payer MEDICARE, MEDICAID, SELFPAY ==
[2023-08-29 09:19] LABS: Valproic Acid (Depakene) Level 11 ug/mL (50-100)
== END ==
LOC: OLS.ACW300 05:00
PROVIDERS: Visit Provider Internal Medicine
DX: Z79.899 Other long term (current) drug therapy (principal); F03.918 Unspecified dementia, unspecified severity, with other behavioral disturbance
CPT/HCPCS: 36415; 80164

== ENCOUNTER → 2023-09-20 | Outpatient (REF) | payer MEDICARE, MEDICAID, SELFPAY ==
[2023-09-20 09:35] LABS: Cholesterol 211 mg/dL (200); High Density Lipoprotein 46 mg/dL; Triglycerides 291 mg/dL; Very Low Density Lipoprotein 58 mg/dL (5-40)
[2023-09-20 09:52] LABS: Hemoglobin A1c 5.5 % (3.8-5.6)
== END ==
LOC: OLS.ACW300 05:00
PROVIDERS: Visit Provider Internal Medicine
DX: E03.9 Hypothyroidism, unspecified (principal); Z79.899 Other long term (current) drug therapy
CPT/HCPCS: 36415; 80061; 83036

== ENCOUNTER → 2023-09-27 | Outpatient (REF) | payer MEDICARE, MEDICAID, SELFPAY ==
[2023-09-27 08:45] LABS: Valproic Acid (Depakene) Level 45 ug/mL (50-100)
== END ==
LOC: OLS.ACW300 05:00
PROVIDERS: Visit Provider Internal Medicine
DX: F72 Severe intellectual disabilities (principal); A41.9 Sepsis, unspecified organism; R29.3 Abnormal posture; R56.9 Unspecified convulsions; R41.841 Cognitive communication deficit; M62.81 Muscle weakness (generalized)
CPT/HCPCS: 36415; 80164

== ENCOUNTER → 2023-10-24 | Outpatient (REF) | payer MEDICARE, MEDICAID, SELFPAY ==
[2023-10-24 09:24] LABS: Hemoglobin 11.9 g/dL (12.0-15.0); Mean Corp Hgb Conc 32.2 g/dL (32-36); Mean Corpuscular Hgb 28.4 pg (27.0-32.0); Mean Corpuscular Volume 88.3 fL (81-99); Mean Platelet Vol. 10.1 fl (6.2-12.0); Platelet Count 336 K/mm3 (150-450); RBC Distribution Width CV 16.3 % (11.6-14.6); RBC Distribution Width SD 52.7 fl (35.1-43.9); Red Blood Count 4.19 M/mm3 (4.2-5.4); White Blood Count 6.8 K/mm3 (4.4-11.0)
[2023-10-24 10:32] LABS: ALB/GLOB Ratio 0.7 RATIO (0.9-2.4); AST(SGOT) 17 U/L (15-37); Alanine Aminotransfer ALT/SGPT 12 U/L (13-56); Alkaline Phosphatase 62 U/L (45-117); Anion Gap 5 (5-15); BUN 32 mg/dL (7-18); BUN/Creat Ratio 40.4 RATIO (10-20); Chloride 107 mmol/L (98-107); Cholesterol 195 mg/dL (200); Creatinine, Serum 0.79 mg/dL (0.55-1.02); EST Glomerular Filtration Rate 75 mL/min (>60); Est Glom Filt Rate - Afr Amer 91 mL/min (>60); Globulin 4.3 g/dL (2.2-4.2); Glucose 84 mg/dL (74-106); High Density Lipoprotein 42 mg/dL; Potassium 4.5 mmol/L (3.5-5.1); Protein, Total 7.3 g/dL (6.4-8.2); Sodium Level 138 mmol/L (136-145); Triglycerides 247 mg/dL; Very Low Density Lipoprotein 49 mg/dL (5-40)
== END ==
LOC: OLS.ACW300 05:00
PROVIDERS: Visit Provider Internal Medicine
DX: F72 Severe intellectual disabilities (principal); A41.9 Sepsis, unspecified organism; M62.81 Muscle weakness (generalized); Z79.899 Other long term (current) drug therapy
CPT/HCPCS: 36415; 80053; 80061; 85027

== ENCOUNTER → 2023-12-19 | Outpatient (REF) | payer MEDICARE, MEDICAID, SELFPAY ==
[2023-12-19 09:08] LABS: Thyroid Stim Hormone (TSH) 4.37 uIU/mL (0.358-3.74)
== END ==
LOC: OLS.ACW300 05:00
PROVIDERS: Visit Provider Internal Medicine
DX: J18.9 Pneumonia, unspecified organism (principal); F79 Unspecified intellectual disabilities; R29.3 Abnormal posture; R56.9 Unspecified convulsions; R41.841 Cognitive communication deficit; M62.81 Muscle weakness (generalized)
CPT/HCPCS: 36415; 84443

== ENCOUNTER → 2023-12-26 05:00 | Outpatient (REF) | payer MEDICARE, MEDICAID, SELFPAY ==
[2023-12-26 07:46] LABS: Hematocrit 36.4 % (37-47); Hemoglobin 11.4 g/dL (12.0-15.0); Mean Corp Hgb Conc 31.3 g/dL (32-36); Mean Corpuscular Hgb 27.2 pg (27.0-32.0); Mean Corpuscular Volume 86.9 fL (81-99); Mean Platelet Vol. 10.3 fl (6.2-12.0); Platelet Count 329 K/mm3 (150-450); RBC Distribution Width CV 15.6 % (11.6-14.6); RBC Distribution Width SD 49.3 fl (35.1-43.9); Red Blood Count 4.19 M/mm3 (4.2-5.4); White Blood Count 11.4 K/mm3 (4.4-11.0)
[2023-12-26 08:17] LABS: ALB/GLOB Ratio 0.6 RATIO (0.9-2.4); AST(SGOT) 14 U/L (15-37); Alanine Aminotransfer ALT/SGPT 12 U/L (13-56); Albumin, Serum 2.7 g/dL (3.2-5.0); Alkaline Phosphatase 60 U/L (45-117); Anion Gap 4 (5-15); BUN 17 mg/dL (7-18); BUN/Creat Ratio 23.3 RATIO (10-20); Calcium,Total 9.1 mg/dL (8.5-10.1); Chloride 107 mmol/L (98-107); Creatinine, Serum 0.73 mg/dL (0.55-1.02); EST Glomerular Filtration Rate 83 mL/min (>60); Est Glom Filt Rate - Afr Amer 100 mL/min (>60); Globulin 4.3 g/dL (2.2-4.2); Glucose 90 mg/dL (74-106); Potassium 4.2 mmol/L (3.5-5.1); Sodium Level 137 mmol/L (136-145)
== END ==
LOC: OLS.ACW300 05:00
PROVIDERS: Visit Provider Internal Medicine
DX: Z79.899 Other long term (current) drug therapy (principal); F72 Severe intellectual disabilities; R29.3 Abnormal posture; R56.9 Unspecified convulsions; R41.841 Cognitive communication deficit; M62.81 Muscle weakness (generalized)
CPT/HCPCS: 36415; 80053; 85027

== ENCOUNTER → 2023-12-31 05:00 | Outpatient (REF) | payer MEDICARE, MEDICAID, SELFPAY ==
[2023-12-31 09:20] LABS: Mucous, Urine 0 SEEN /hpf (<or=2+)
[2023-12-31 09:36] LABS: Hematocrit 42.5 % (37-47); Mean Corp Hgb Conc 30.6 g/dL (32-36); Mean Corpuscular Hgb 27.5 pg (27.0-32.0); Mean Platelet Vol. 9.5 fl (6.2-12.0); Platelet Count 423 K/mm3 (150-450); RBC Distribution Width CV 15.8 % (11.6-14.6); RBC Distribution Width SD 51.8 fl (35.1-43.9); Red Blood Count 4.72 M/mm3 (4.2-5.4); White Blood Count 10.4 K/mm3 (4.4-11.0)
[2023-12-31 09:47] LABS: Anion Gap 5 (5-15); BUN 26 mg/dL (7-18); BUN/Creat Ratio 30.7 RATIO (10-20); Calcium,Total 9.5 mg/dL (8.5-10.1); Chloride 103 mmol/L (98-107); Creatinine, Serum 0.85 mg/dL (0.55-1.02); EST Glomerular Filtration Rate 70 mL/min (>60); Est Glom Filt Rate - Afr Amer 84 mL/min (>60); Glucose 84 mg/dL (74-106); Sodium Level 136 mmol/L (136-145)
[2023-12-31 09:52] LABS: Color, Urine Yellow (Yellow); Glucose, Dipstick Normal (Normal); Ketone-Dipstick Negative (Negative); Leukocyte Esterase-Dipstick 500 /ul (Negative); Nitrite-Dipstick Negative (Negative); Occult Blood-Urine 50 /ul (Negative); Protein-Dipstick 100 mg/dl (Negative); Urine Bilirubin Dipstick Negative (Negative); Urine Clarity Sl. Cloudy (Clear); Urine Urobilinogen Normal (Normal)
[2023-12-31 10:05] LABS: Bacteria 3+ /hpf (None Seen); Red Blood Cells-Urine 0-5 SEEN /hpf (0-5); Squamous Epithelial Cells - UA 0-5 SEEN /hpf (5-10); White Blood Cells 25-50 SEEN /hpf (0-5)
== END ==
LOC: OLS.ACW300 05:00
PROVIDERS: Visit Provider Internal Medicine
DX: Z79.899 Other long term (current) drug therapy (principal); F79 Unspecified intellectual disabilities; R29.3 Abnormal posture; R56.9 Unspecified convulsions; R41.841 Cognitive communication deficit; M62.81 Muscle weakness (generalized)
CPT/HCPCS: 36415; 80048; 81001; 85027; 87077; 87086; 87088; 87186

== ENCOUNTER → 2024-03-17 | Outpatient (REF) | payer MEDICARE, MEDICAID, SELFPAY ==
[2024-03-17 09:42] LABS: Hematocrit 39.7 % (37-47); Hemoglobin 12.4 g/dL (12.0-15.0); Mean Corp Hgb Conc 31.2 g/dL (32-36); Mean Corpuscular Hgb 28.2 pg (27.0-32.0); Mean Corpuscular Volume 90.2 fL (81-99); Platelet Count 332 K/mm3 (150-450); RBC Distribution Width CV 16.1 % (11.6-14.6); RBC Distribution Width SD 53.1 fl (35.1-43.9)
[2024-03-17 12:51] LABS: ALB/GLOB Ratio 0.7 RATIO (0.9-2.4); AST(SGOT) 12 U/L (15-37); Alanine Aminotransfer ALT/SGPT 13 U/L (13-56); Albumin, Serum 3.1 g/dL (3.2-5.0); Alkaline Phosphatase 78 U/L (45-117); Anion Gap 9 (5-15); BUN 22 mg/dL (7-18); BUN/Creat Ratio 25.9 RATIO (10-20); Calcium,Total 9.1 mg/dL (8.5-10.1); Chloride 104 mmol/L (98-107); Cholesterol 215 mg/dL (200); Creatinine, Serum 0.85 mg/dL (0.55-1.02); EST Glomerular Filtration Rate 69 mL/min (>60); Est Glom Filt Rate - Afr Amer 84 mL/min (>60); Globulin 4.5 g/dL (2.2-4.2); Glucose 85 mg/dL (74-106); High Density Lipoprotein 45 mg/dL; Potassium 4.2 mmol/L (3.5-5.1); Protein, Total 7.6 g/dL (6.4-8.2); Sodium Level 139 mmol/L (136-145); Triglycerides 233 mg/dL; Very Low Density Lipoprotein 47 mg/dL (5-40)
== END ==
LOC: OLS.ACW300 05:00
PROVIDERS: Visit Provider Internal Medicine
DX: F72 Severe intellectual disabilities (principal); A41.9 Sepsis, unspecified organism; R29.3 Abnormal posture; R41.841 Cognitive communication deficit; M62.81 Muscle weakness (generalized); Z79.899 Other long term (current) drug therapy
CPT/HCPCS: 36415; 80053; 80061; 84443; 85027

== ENCOUNTER → 2024-03-23 05:00 | Outpatient (REF) | payer MEDICARE, MEDICAID, SELFPAY ==
[2024-03-23 09:02] LABS: Cholesterol 218 mg/dL (200); High Density Lipoprotein 47 mg/dL; Triglycerides 261 mg/dL; Very Low Density Lipoprotein 52 mg/dL (5-40)
[2024-03-23 10:14] LABS: Hemoglobin A1c 5.2 % (3.8-5.6)
== END ==
LOC: OLS.ACW300 05:00
PROVIDERS: Visit Provider Family Medicine
DX: E03.9 Hypothyroidism, unspecified (principal)
CPT/HCPCS: 36415; 80061; 83036

== ENCOUNTER → 2024-04-01 05:00 | Outpatient (REF) | payer MEDICARE, MEDICAID, SELFPAY ==
[2024-04-01 09:16] LABS: Hematocrit 40.3 % (37-47); Hemoglobin 12.6 g/dL (12.0-15.0); Mean Corp Hgb Conc 31.3 g/dL (32-36); Mean Corpuscular Volume 89.6 fL (81-99); Mean Platelet Vol. 10.1 fl (6.2-12.0); Platelet Count 366 K/mm3 (150-450); RBC Distribution Width CV 15.9 % (11.6-14.6); RBC Distribution Width SD 52.4 fl (35.1-43.9); White Blood Count 10.6 K/mm3 (4.4-11.0)
[2024-04-01 09:41] LABS: Anion Gap 5 (5-15); BUN 26 mg/dL (7-18); BUN/Creat Ratio 33.1 RATIO (10-20); Calcium,Total 10.1 mg/dL (8.5-10.1); Chloride 102 mmol/L (98-107); Creatinine, Serum 0.79 mg/dL (0.55-1.02); EST Glomerular Filtration Rate 76 mL/min (>60); Est Glom Filt Rate - Afr Amer 92 mL/min (>60); Glucose 83 mg/dL (74-106); Potassium 4.2 mmol/L (3.5-5.1); Sodium Level 138 mmol/L (136-145)
== END ==
LOC: OLS.ACW300 05:00
PROVIDERS: Visit Provider Internal Medicine
DX: M62.81 Muscle weakness (generalized) (principal); R56.9 Unspecified convulsions; F72 Severe intellectual disabilities; A41.9 Sepsis, unspecified organism; R29.3 Abnormal posture; R41.841 Cognitive communication deficit
CPT/HCPCS: 36415; 80048; 85027

== ENCOUNTER → 2024-04-03 02:00 | Outpatient (REF) | payer MEDICARE, MEDICAID, SELFPAY ==
[2024-04-03 08:28] LABS: Mucous, Urine 0 SEEN /hpf (<or=2+); Squamous Epithelial Cells - UA 0 SEEN /hpf (5-10)
[2024-04-03 08:33] LABS: Color, Urine Straw (Yellow); Glucose, Dipstick Normal (Normal); Ketone-Dipstick Negative (Negative); Leukocyte Esterase-Dipstick 500 /ul (Negative); Nitrite-Dipstick Positive (Negative); Occult Blood-Urine 10 /ul (Negative); Protein-Dipstick Negative (Negative); Urine Bilirubin Dipstick Negative (Negative); Urine Clarity Clear (Clear); Urine Urobilinogen Normal (Normal)
[2024-04-03 08:39] LABS: Bacteria 1+ /hpf (None Seen); Red Blood Cells-Urine 0-5 SEEN /hpf (0-5); White Blood Cells 25-50 SEEN /hpf (0-5)
== END ==
LOC: OLS.ACW300 02:00
PROVIDERS: Visit Provider Family Medicine
DX: R41.841 Cognitive communication deficit (principal); M62.81 Muscle weakness (generalized); F72 Severe intellectual disabilities; A41.9 Sepsis, unspecified organism
CPT/HCPCS: 81001; 87077; 87086; 87088; 87186

== ENCOUNTER → 2024-04-28 | Outpatient (REF) | payer MEDICARE, MEDICAID, SELFPAY ==
[2024-04-28 08:50] LABS: Color, Urine Yellow (Yellow); Glucose, Dipstick Normal (Normal); Ketone-Dipstick Negative (Negative); Leukocyte Esterase-Dipstick 100 /ul (Negative); Nitrite-Dipstick Negative (Negative); Occult Blood-Urine Negative /ul (Negative); Protein-Dipstick Negative (Negative); Specific Gravity, Urine 1.015 (1.002-1.030); Urine Bilirubin Dipstick Negative (Negative); Urine Clarity Clear (Clear); Urine Urobilinogen Normal (Normal)
== END ==
LOC: OLS.ACW300 02:30
PROVIDERS: Visit Provider Family Medicine
DX: R41.82 Altered mental status, unspecified (principal)
CPT/HCPCS: 81002; 87077; 87086; 87088; 87186

== ENCOUNTER → 2024-05-04 | Outpatient (REF) | payer MEDICARE, MEDICAID, SELFPAY ==
[2024-05-04 08:04] LABS: Hematocrit 40.9 % (37-47); Hemoglobin 12.7 g/dL (12.0-15.0); Mean Corp Hgb Conc 31.1 g/dL (32-36); Mean Corpuscular Hgb 28.3 pg (27.0-32.0); Mean Corpuscular Volume 91.1 fL (81-99); Mean Platelet Vol. 11.3 fl (6.2-12.0); Platelet Count 279 K/mm3 (150-450); RBC Distribution Width CV 15.2 % (11.6-14.6); RBC Distribution Width SD 50.7 fl (35.1-43.9); Red Blood Count 4.49 M/mm3 (4.2-5.4); White Blood Count 8.5 K/mm3 (4.4-11.0)
[2024-05-04 08:17] LABS: Anion Gap 7 (5-15); BUN 26 mg/dL (7-18); BUN/Creat Ratio 30.4 RATIO (10-20); Chloride 101 mmol/L (98-107); Creatinine, Serum 0.86 mg/dL (0.55-1.02); EST Glomerular Filtration Rate 69 mL/min (>60); Est Glom Filt Rate - Afr Amer 83 mL/min (>60); Glucose 90 mg/dL (74-106); Potassium 4.2 mmol/L (3.5-5.1); Sodium Level 138 mmol/L (136-145)
== END ==
LOC: OLS.ACW300 05:00
PROVIDERS: Visit Provider Family Medicine
DX: F72 Severe intellectual disabilities (principal); A41.9 Sepsis, unspecified organism; F79 Unspecified intellectual disabilities; R29.3 Abnormal posture; R56.9 Unspecified convulsions; R41.841 Cognitive communication deficit; M62.81 Muscle weakness (generalized)
CPT/HCPCS: 36415; 80048; 85027

== ENCOUNTER → 2024-05-21 | Outpatient (REF) | payer MEDICARE, MEDICAID, SELFPAY | LOC: OLS.ACW300 05:00 | PROVIDERS: Visit Provider Internal Medicine | DX: Z79.899 Other long term (current) drug therapy (principal); F72 Severe intellectual disabilities; A41.9 Sepsis, unspecified organism; R26.81 Unsteadiness on feet; R56.9 Unspecified convulsions | CPT/HCPCS: 36415 ==

== ENCOUNTER → 2024-06-17 | Outpatient (REF) | payer MEDICARE, MEDICAID, SELFPAY ==
[2024-06-17 08:47] LABS: Hemoglobin A1c 5.6 % (3.8-5.6)
== END ==
LOC: OLS.ACW300 04:00
PROVIDERS: Referring Provider Internal Medicine; Visit Provider Internal Medicine
DX: Z79.899 Other long term (current) drug therapy (principal)
CPT/HCPCS: 36415; 83036; 84443

== ENCOUNTER → 2024-07-01 | Outpatient (REF) | payer MEDICARE, MEDICAID, SELFPAY ==
[2024-07-01 07:56] LABS: Hematocrit 34.7 % (37-47); Hemoglobin 11.1 g/dL (12.0-15.0); Mean Corpuscular Hgb 27.5 pg (27.0-32.0); Mean Corpuscular Volume 86.1 fL (81-99); Mean Platelet Vol. 9.6 fl (6.2-12.0); Platelet Count 303 K/mm3 (150-450); RBC Distribution Width CV 15.9 % (11.6-14.6); RBC Distribution Width SD 50.4 fl (35.1-43.9); Red Blood Count 4.03 M/mm3 (4.2-5.4); White Blood Count 7.7 K/mm3 (4.4-11.0)
[2024-07-01 08:14] LABS: ALB/GLOB Ratio 0.7 RATIO (0.9-2.4); AST(SGOT) 12 U/L (15-37); Alanine Aminotransfer ALT/SGPT 12 U/L (13-56); Albumin, Serum 2.9 g/dL (3.2-5.0); Alkaline Phosphatase 70 U/L (45-117); Anion Gap 5 (5-15); BUN 34 mg/dL (7-18); Calcium,Total 9.1 mg/dL (8.5-10.1); Chloride 104 mmol/L (98-107); Creatinine, Serum 0.77 mg/dL (0.55-1.02); EST Glomerular Filtration Rate 77 mL/min (>60); Est Glom Filt Rate - Afr Amer 94 mL/min (>60); Globulin 4.3 g/dL (2.2-4.2); Glucose 84 mg/dL (74-106); Potassium 4.2 mmol/L (3.5-5.1); Protein, Total 7.2 g/dL (6.4-8.2); Sodium Level 137 mmol/L (136-145)
== END ==
LOC: OLS.ACW300 05:00
PROVIDERS: Visit Provider Internal Medicine
DX: F72 Severe intellectual disabilities (principal); A41.9 Sepsis, unspecified organism
CPT/HCPCS: 36415; 80053; 85027

== ENCOUNTER → 2024-07-30 04:00 | Outpatient (REF) | payer MEDICARE, MEDICAID, SELFPAY | LOC: OLS.ACW300 04:00 | PROVIDERS: Referring Provider Internal Medicine; Visit Provider Internal Medicine | DX: E03.9 Hypothyroidism, unspecified (principal) | CPT/HCPCS: 36415; 84443 ==

== ENCOUNTER → 2024-11-23 | Outpatient (REF) | payer MEDICARE, MEDICAID, SELFPAY ==
[2024-11-23 09:37] LABS: Color, Urine Yellow (Yellow); Glucose, Dipstick Normal (Normal); Ketone-Dipstick Negative (Negative); Leukocyte Esterase-Dipstick 500 /ul (Negative); Nitrite-Dipstick Negative (Negative); Occult Blood-Urine 10 /ul (Negative); Protein-Dipstick Negative (Negative); Urine Bilirubin Dipstick Negative (Negative); Urine Clarity Clear (Clear); Urine Urobilinogen Normal (Normal)
== END ==
LOC: OLS.ACW300 09:18
PROVIDERS: Referring Provider Internal Medicine; Visit Provider Internal Medicine
DX: R39.89 Other symptoms and signs involving the genitourinary system (principal)
CPT/HCPCS: 81002; 87077; 87086; 87088; 87186

== ENCOUNTER → 2024-11-30 | Outpatient (REF) | payer MEDICARE, MEDICAID, SELFPAY ==
[2024-11-30 09:41] LABS: Valproic Acid (Depakene) Level 35 ug/mL (50-100)
[2024-12-02 17:08] LABS: Zarontin Level 54 ug/mL (40-100)
== END ==
LOC: OLS.ACW300 05:00
PROVIDERS: Visit Provider Internal Medicine
DX: Z79.899 Other long term (current) drug therapy (principal); F72 Severe intellectual disabilities; A41.9 Sepsis, unspecified organism; R26.81 Unsteadiness on feet; R56.9 Unspecified convulsions; R41.841 Cognitive communication deficit
CPT/HCPCS: 36415; 80164; 80168

== ENCOUNTER → 2024-12-18 | Outpatient (REF) | payer MEDICARE, MEDICAID, SELFPAY | LOC: OLS.ACW300 05:00 | PROVIDERS: Visit Provider Internal Medicine | DX: E03.9 Hypothyroidism, unspecified (principal) | CPT/HCPCS: 36415; 84443 ==

== ENCOUNTER → 2025-01-27 05:00 | Outpatient (REF) | payer MEDICARE, MEDICAID, SELFPAY ==
--- OUTSIDE RECORDS SUMMARY | 2025-01-27 04:23 | XMS RPT_ITS | CCD ---
Author Organization [facility] CliniSywy Care Team Providers Care Skates Operator Name Role Phone Unavailable Primary Care Provider Wale Wheat MD Primary Care Provider [phone] Wale Cadena Referring Unavailable MOSHE CASTANEDA Attending Unavailable Wale Cadena Primary Care Unavailable Wale Cadena Primary Care Provider [phone] WALE CADENA Primary Care Unavailable NILO KENNEDY Attending Unavailable Wale Maier Attending Provider Unavailab Wale Pastor Referring Provider Unavailab Wale Pastor Attending Unavailable Tammi WHEATLEY, Wale Attending Unavailable Arden Crews Attending Unavailable Sherrellsaedison WHEATLEY, Wale Attending Unavailable Bro OLS, Arden Attending Unavailable Bro WHEATLEY, Arden Attending Unavailable Bro WHEATLEY, Arden Attending Unavailable Tammi WHEATLEY, Wale Attending Unavailable Tammi WHEATLEY, Wale Referring Unavailable Sherrellsaedison WHEATLEY, Wale Attending Unavailable Tammi WHEATLEY, Wale Attending Unavailable Katsaedison WHEATLEY, Wale Referring Unavailable Katsaedison WHEATLEY, Wale Attending Unavailable Katsaedison WHEATLEY, Wale Referring Unavailable Katsaedison WHEATLEY, Wale Attending Unavailable Tammi WHEATLEY, Wale Attending Unavailable Medications Current Medications Medication Drug Class(es) Dates Sig (Normalized) Sig (Original) Acetaminophen (6 sources) Start: 04-11-2022 acetaminophen (TYLENOL) tablet 650 mg Start: 04-10-2022 End: 04-10-2022 acetaminophen (TYLENOL) supp ository 650 mg Start: 11-27-2020 acetaminophen (TYLENOL) tablet 650 mg Start: 11-27-2020 End: 11-27-2020 acetaminophen (TYLENOL) supp ository 650 mg acetaminophen 325 mg / HYDROcodone bitartrate 5 mg oral tablet (2 sources) Opioid Agonist Start: 12-02-2020 End: 12-05-2020 take 1 tablet by mouth every eight hours as needed for pain HYDROcodone-acetaminophen (NORCO) 5-325 MG per tablet Indications: Chronic pain syndrome Take 1 tablet by mouth every 8 hours as needed for Pain for up to 3 days. 9 tablet 0 12/02/2020 12/05/2020 Active End: 12-02-2020 take 1 tablet by mouth every six hours as needed for pain HYDROcodone-acetaminophen (NORCO) 5-325 MG per tablet Take 1 tablet by mouth every 6 hours as needed for Pain. 0 12/02/2020 Discontinued (REORDER) albuterol 0.83 mg/ml inhalation solution (3 sources) beta2-Adrenergic Agonist Start: 04-17-2022 albut marianela (PROVENTIL) (2.5 MG/3ML) 0.083% nebulizer solution Take 3 mLs by nebulization every 4 hours as needed for Wheezing or Shortness of Breath 120 each 3 04/17/2022 Active Start: 04-11-2022 albuterol (PRO VENTIL) nebulizer solution 2.5 mg albuterol 0.833 mg/ml / ipratropium bromide 0.167 mg/ml inhalation solution (1 source) Anticholinergic, beta2-Adrenergic Agonist Start: 11-27-2020 ipratropium-albuterol (DUONEB) nebulizer solution 1 ampule bisacodyl 10 mg rectal suppository (3 sources) Stimulant Laxative Start: 11-27-2020 take 10 mg rectal route once daily 10 mg, Rectal, DAILY, First dose on 11/27/20 at 1530 busPIRone hydrochloride 10 mg oral tablet (4 sources) take 1 tablet by mouth three times daily busPIRone (Buspar) 10 MG tablet Take 10 mg by mouth 3 times daily. Active calcium chloride 0.0014 meq/ml / potassium chloride 0.004 meq/ml / sodium chloride 0.103 meq/ml / sodium lactate 0.028 meq/ml injectable solution (1 source) Start: 11-29-2020 lactated ringers infusion cefdinir 300 mg oral capsule (2 sources) Cephalosporin Antibacterial Start: 04-16-2022 End: 04-20-2022 take 1 capsule by mouth every twelve hours cefdinir (OMNICEF) 300 MG capsule Take 1 capsule by mouth every 12 hours for 2 days 4 capsule 0 04/17/2022 04/19/2022 Active cetirizine hydrochloride 10 mg oral tablet (1 source) Histamine-1 Receptor Antagonist Start: 11-27-2020 take 5 mg by mouth once daily 5 mg, Oral, DAILY, First dose on 11/27/20 at 1530 Substituted for Loratadine (CLARITIN). ertapenem (INVanz) 1000 mg IVPB minibag (1 source) Start: 11-29-2020 ertapenem (INVanz) 1000 mg IVPB minibag famotidine 20 mg oral tablet (7 sources) Histamine-2 Receptor Antagonist Start: 11-27-2020 take 20 mg by mouth once daily 20 mg, Oral, DAILY, First dose on 11/27/20 at 1530 furosemide 8 mg/ml oral solution (6 sources) Loop Diuretic take 80 mg by mouth once daily furosemide (Lasix) 8 MG/ML solution Take 80 mg by mouth daily. Active furosemide (LASI X) 8 MG/ML oral solution Take by mouth daily 0 Active guaiFENesin 20 mg/ml oral solution (2 sources) take 200 mg by mouth every four hours as needed for cough guaiFENesin (ROBITUSSIN) 100 MG/5ML SOLN oral solution Take 200 mg by mouth every 4 hours as needed for Cough 0 Active loratadine 10 mg oral tablet (6 sources) take 1 tablet by mouth once daily loratadine (Claritin) 10 MG tablet Take 10 mg by mouth daily. Active 1 ml LORazepam 2 mg/ml injection (1 source) Benzodiazepine Start: LORazepam (ATIVAN) injection 1 mg Multiple Vitamins-Minerals (THERAPEUTIC MULTIVITAMIN-MINERALS) tablet (2 sources) take 1 tablet by mouth once daily Multiple Vitamins-Minerals (THERAPEUTIC MULTIVITAMIN-MINERALS ) tablet Take 1 tablet by mouth daily 0 Active ondansetron (ZOFRAN-ODT) disintegrating tablet 4 mg (1 source) Start: ondansetron (ZOFRAN-ODT) disintegrating tablet 4 mg Promethazine (1 source) Phenothiazine Start: promethazine (PHENERGAN) tablet 12.5 mg sertraline 25 mg oral tablet (4 sources) Serotonin Reuptake Inhibitor take 3 tablets by mouth once daily sertraline (Zoloft) 25 MG tablet Take 75 mg by mouth daily. Active therapeutic multivitamin-minerals (Theragran-M) tablet (4 sources) take 1 tablet by mouth once daily therapeutic multivitamin-minerals (Theragran-M) tablet Take 1 tablet by mouth daily. Active vancomycin (VANCOCIN) 1,750 mg in dextrose 5 % 500 mL IVPB (1 source) Start: vancomycin (VANCOCIN) 1,750 mg in dextrose 5 % 500 mL IVPB Completed/Discontinued Medications Medication Drug Class(es) Dates Sig (Normalized) Sig (Original) azithromycin (ZITHROMAX) 500 mg in dextrose 5 % 250 mL IVPB (add-vantage) (1 source) Start: 11-27-2020 End: 11-27-2020 azithromycin (ZITHROMAX) 500 mg in dextrose 5 % 250 mL IVPB (add-vantage) ceFAZolin 2000 mg injection (1 source) Cephalosporin Antibacterial Start: 04-14-2022 End: 04-16-2022 ceFAZolin (ANCEF) 2000 mg in dextrose 4 % 100 mL IVPB (premix) cefepime (2 sources) Cephalosporin Antibacterial Start: 04-11-2022 End: 04-11-2022 cefepime (MAXIPIME) 2000 mg IVPB extended (mini-bag) Start: 11-27-2020 End: 11-29-2020 cefepime (MAXIPIME) 2000 mg IVPB extended (mini-bag) cefTRIAXone (ROCEPHIN) 1000 mg IVPB in NS 50ml minibag (1 source) Start: 11-27-2020 End: 11-27-2020 cefTRIAXone (ROCEPHIN) 1000 mg IVPB in NS 50ml minibag 1 ml diphenhydrAMINE hydrochloride 50 mg/ml cartridge (2 sources) Histamine-1 Receptor Antagonist Start: 11-30-2020 End: 11-30-2020 diphenhydrAMINE (BENADRYL) injection 25 mg Start: 11-29-2020 End: 11-29-2020 diphenhydrAMINE (BENADRYL) i njection 25 mg 0.4 ml enoxaparin sodium 100 mg/ml prefilled syringe (2 sources) Low Molecular Weight Heparin Start: 04-11-2022 inject 40 mg by subcutaneous injection once daily 40 mg, SubCUTAneous, DAILY, First dose on Sat04/11/22 at 0900, Until Discontinued Indication of Use: Prophylaxis-DVT/PE Start: 11-27-2020 enoxaparin (LO VENOX) injection 40 mg ethosuximide 50 mg/ml oral solution (8 sources) Anti-epileptic Agent Start: 11-27-2020 take 600 mg by mouth twice daily 600 mg, Oral, 2 TIMES DAILY, First dose on Sat04/10/22 at 2343, Until Discontinued 2 ml fentaNYL 0.05 mg/ml injection (1 source) Opioid Agonist Start: 12-02-2020 End: 12-02-2020 fentaNYL (SUBLIMAZE) injection 250 ml glucose 50 mg/ml / sodium chloride 9 mg/ml injection (1 source) Start: 04-11-2022 End: 04-14-2022 dextrose 5 % and 0.9 % sodium chloride infusion 1 ml haloperidol 5 mg/ml injection (2 sources) Typical Antipsychotic Start: 11-29-2020 End: 11-29-2020 haloperidol lactate (HALDOL) injection 2 mg Start: 11-29-2020 haloperidol la ctate (HALDOL) injection 1 mg hydrOXYzine hydrochloride 10 mg oral tablet (3 sources) Antihistamine Start: 04-10-2022 take 10 mg by mouth three times daily as needed 10 mg, Oral, 3 TIMES DAILY PRN, Starting on Sat04/10/22 at 2341, Until Discontinued, Itching levothyroxine sodium 0.1 mg oral tablet (8 sources) l-Thyroxine Start: 04-11-2022 take 100 ug by mouth once daily 100 mcg, Oral, DAILY, First dose on Sat04/11/22 at 0700, Until Discontinued Tube feeding (TF) interaction, obtain physician order to manage, recommend holding TF for 30 minutes before and after dose. Start: 11-30-2020 Levothyroxine Sodium (SYNTHROID) 100 MCG/5ML injection 80 mcg 300 ml linezolid 2 mg/ml injection (1 source) Oxazolidinone Antibacterial Start: 04-11-2022 End: 04-11-2022 linezolid (ZYVOX) IVPB 600 mg meropenem (2 sources) Penem Antibacterial Start: 04-11-2022 End: 04-14-2022 meropenem (MERREM) 1000 mg IVPB extended (mini-bag) Start: 04-10-2022 End: 04-10-2022 meropenem (MERREM) 1000 mg I VPB extended (mini-bag) metoclopramide 10 mg oral tablet (8 sources) Dopamine-2 Receptor Antagonist Start: 11-27-2020 take 10 mg by mouth twice daily 10 mg, Oral, 2 TIMES DAILY, First dose on Sat04/10/22 at 2343, Until Discontinued metoprolol tartrate 50 mg oral tablet (8 sources) beta-Adrenergic Francheska Start: 04-11-2022 take 100 mg by mouth once daily 100 mg, Oral, DAILY, First dose on Sat04/11/22 at 0900, Until Discontinued Start: 11-29-2020 metoprolol (LO PRESSOR) injection 5 mg take 1 tablet by haritha th once daily metoprolol tartrate (Lopressor) 100 MG tablet Take 100 mg by mouth daily. Active 2 ml midazolam 1 mg/ml injection (1 source) Benzodiazepine Start: 12-02-2020 End: 12-02-2020 midazolam (VERSED) injection milk and molasses (1 source) End: 11-27-2020 take 240 mL rectal route once milk and molasses Place 240 mLs rectally once Compound per protocol. 0 11/27/2020 Discontinued (LIST CLEANUP) perflutren lipid microspheres (DEFINITY) injection 1.65 mg (1 source) Start: 11-28-2020 End: 12-01-2020 perflutren lipid microspheres (DEFINITY) injection 1.65 mg polyethylene glycol 3350 [id number] mg powder for oral solution (2 sources) Osmotic Laxative Start: 04-11-2022 17 g, Oral, D AILY PRN, Starting on Sat04/11/22 at 0056, Until Discontinued, Constipation First line therapy for constipation Start: 11-27-2020 polyethylene g lycol (GLYCOLAX) packet 17 g potassium bicarbonate 20 meq effervescent oral tablet (1 source) Start: 04-11-2022 End: 04-11-2022 potassium bicarb-citric acid (EFFER-K) effervescent tablet 20 mEq 100 ml potassium chloride 0.1 meq/ml injection (1 source) Start: 11-28-2020 End: 11-29-2020 potassium chloride 10 mEq/100 mL IVPB (Peripheral Line) 24 hr QUEtiapine 50 mg extended release oral tablet (8 sources) Atypical Antipsychotic Start: 11-27-2020 take 50 mg by mouth twice daily 50 mg, Oral, 2 TIMES DAILY, First dose on Sat04/10/22 at 2343, Until Discontinued Do not crush or break. 5 ml sodium chloride 9 mg/ml injection (8 sources) Start: 04-11-2022 take 1 dose intravenously twice daily 5-40 mL, IntraVENous, EVERY 12 HOURS SCHEDULED (2 times per day), First dose on Sat04/11/22 at 0900, Until Discontinued For Line Patency: Peripheral IV = 5 mL; Midline or Central Line = 10 mL/lumen.&nbs p; If following IV push medication, administer flush at same rate as the IV push. Flush volume is determined by type of infusion therapy being given. &nbsp ;For non-viscous solutions use: Periphe ral IV = 5 mL Midline or Central Line = 10 mL/lumen &nb sp;For viscous solutions (i.e. blood components, parenteral nutrition, contrast media, or after obtaining blood sample) use: Periphe ral IV = 10 mL Midline or Central Line = 20 mL/lumen Start: 04-11-2022 IntraVENous, a t 5-250 mL/hr, PRN, if patient receiving piggyback infusions and maintenance fluids are not ordered OR KVO fluids to protect IV site / prevent frequent line interruptions/ long duration, Starting on Sat04/11/22 at 0056 For piggyback infusion, administer at same rate as piggyback for a total of 25 mL. Enter 25 mL into dose field and piggyback rate into rate field of order. If piggyback is infusing at a rate less than 100 mL/hr, enter 25 mL into dose field and 100 mL/hr into rate field of order. For KVO fluids, enter rate of 20 mL/hr or less into rate field of order. Start: 04-11-2022 take 5-40 mL intrave nously once as needed 5-40 mL, IntraVENous, PRN, Starting on Sat04/11/22 at 0056, Until Discontinued, Line Care, After every IV line use For Line Patency: Peripheral IV = 5 mL; Midline or Central Line = 10 mL/lumen. If following IV push medication, administer flush at same rate as the IV push. Flush volume is determined by type of infusion therapy being given. For non-viscous solutions use: Peripheral IV = 5 mL Midline or Central Line = 10 mL/lumen For viscous solutions (i.e. blood components, parenteral nutrition, contrast media, or after obtaining blood sample) use: Peripheral IV = 10 mL Midline or Central Line = 20 mL/lumen Start: 04-10-2022 End: 04-11-2022 0.9 % sodium chloride bolus Start: 11-27-2020 0.9 % sodium c hloride infusion Start: 11-27-2020 sodium chlorid e flush 0.9 % injection 5-40 mL Start: 11-27-2020 End: 11-27-2020 0.9 % sodium chloride bolus divalproex sodium 250 mg delayed release oral tablet (8 sources) Mood Stabilizer, Anti-epileptic Agent Start: 04-11-2022 take 250 mg by mouth three times daily 250 mg, Oral, 3 TIMES DAILY, First dose on Sat04/11/22 at 1600, Until Discontinued Do not crush or break. Start: 11-29-2020 valproic acid (DEPACON) 250 MG/5ML oral solution 250 mg take 1 tablet by haritha th three times daily divalproex (Depakote) 125 MG EC tablet Take 125 mg by mouth 3 times daily. Active take 2 tablets by mo uth three times daily divalproex (DEPAKOTE) [address] tablet Take 250 mg by mouth 3 times daily 0 Active valproate (DEPACON) 250 mg in dextrose 5 % 100 mL IVPB (1 source) Start: 04-11-2022 End: 04-11-2022 valproate (DEPACON) 250 mg in dextrose 5 % 100 mL IVPB 200 ml vancomycin 5 mg/ml injection (1 source) Glycopeptide Antibacterial Start: 04-11-2022 End: 04-12-2022 vancomycin (VANCOCIN) 1000 mg in dextrose 5% 200 mL IVPB Problems Active Problems Problem Classification Problem Date Documented Da te Episodic/Chronic Acute and unspecified renal failure (2 sources) Acute kidney failure with tubular necrosis; Translations: [Acute kidney failure with tubular necrosis] Onset: 04-11-2022 Episodic Bacterial infection; unspecified site (2 sources) Unspecified Escherichia coli [E. coli] as the cause of diseases classified elsewhere; Translations: [Unsp Escherichia coli as the cause of diseases classd elswhr] Onset: 04-11-2022 Episodic Coronary atherosclerosis and other heart disease (2 sources) Other forms of acute ischemic heart disease; Translations: [Other forms of acute ischemic heart disease] Onset: 04-11-2022 Chronic Delirium, dementia, and amnestic and other cognitive disorders (2 sources) Unspecified dementia without behavioral disturbance; Translations: [Unsp dementia, unsp severity, without beh/psych/mood/anx] Onset: 04-11-2022 Chronic Developmental disorders (4 sources) Severe intellectual disabilities; Translations: [Unspecified intellectual disabilities] Onset: 04-11-2024 Chronic Epilepsy; convulsions (2 sources) Epilepsy, unspecified, not intractable, without status epilepticus; Translations: [Epilepsy, unsp, not intractable, without status epilepticus] Onset: 04-11-2022 Chronic Epilepsy; convulsions (2 sources) Unspecified convulsions; Translations: [Unspecified convulsions] Onset: 04-11-2024 Episodic Esophageal disorders (2 sources) Gastro-esophageal reflux disease without esophagitis; Translations: [Gastro-esophageal reflux disease without esophagitis] Onset: 04-11-2022 Chronic Essential hypertension (2 sources) Essential (primary) hypertension; Translations: [Essential (primary) hypertension] Onset: 04-11-2022 Chronic Fluid and electrolyte disorders (6 sources) Acidosis; Translations: [Hyperosmolality and hypernatremia] Onset: 04-11-2022 Episodic Intracranial injury (2 sources) Personal history of traumatic brain injury; Translations: [Personal history of traumatic brain injury] Onset: 04-11-2022 Episodic Other aftercare (2 sources) Encounter for palliative care; Translations: [Encounter for palliative care] Onset: 04-11-2022 Episodic Other connective tissue disease (2 sources) Abnormal posture; Translations: [Abnormal posture] Onset: 04-11-2024 Episodic Other ear and sense organ disorders (2 sources) Unspecified hearing loss, unspecified ear; Translations: [Unspecified hearing loss, unspecified ear] Onset: 04-11-2022 Chronic Other gastrointestinal disorders (2 sources) Dysphagia, unspecified; Translations: [Dysphagia, unspecified] Onset: 04-11-2022 Episodic Other gastrointestinal disorders (2 sources) Diarrhea, unspecified; Translations: [Diarrhea, unspecified] Onset: 04-11-2022 Episodic Other lower respiratory disease (1 source) Hypoxia; Translations: [Hypoxemia] Episodic Other lower respiratory disease (2 sources) Cough; Translations: [Acute cough] 10-21-2024 Episodic Other nervous system disorders (1 source) Chronic pain syndrome; Translations: [Chronic pain syndrome] Chronic Other nervous system disorders (2 sources) Aphasia; Translations: [Aphasia] Onset: 04-11-2022 Chronic Other nervous system disorders (2 sources) Cognitive communication deficit; Translations: [Cognitive communication deficit] Onset: 04-11-2024 Chronic Other nervous system disorders (1 source) Unsteadiness on feet; Translations: [Unsteadiness on feet] Onset: 01-01-2025 Episodic Other nutritional; endocrine; and metabolic disorders (2 sources) Obesity, unspecified; Translations: [Obesity, unspecified] Onset: 04-11-2022 Chronic Other nutritional; endocrine; and metabolic disorders (2 sources) Body mass index (BMI) 30.0-30.9, adult; Translations: [Body mass index [BMI] 30.0-30.9, adult] Onset: 04-11-2022 Chronic Other upper respiratory infections (4 sources) Viral upper respiratory tract infection; Translations: [Acute upper respiratory infection, unspecified] Onset: 10-21-2024 10-21-2024 Episodic Peripheral and visceral atherosclerosis (2 sources) Peripheral vascular disease, unspecified; Translations: [Peripheral vascular disease, unspecified] Onset: 04-11-2022 Chronic Personality disorders (1 source) Unspecified disorder of adult personality and behavior; Translations: [Unspecified disorder of adult personality and behavior] Onset: 07-01-2024 Chronic Pneumonia (except that caused by tuberculosis or sexually transmitted disease) (3 sources) Infective pneumonia; Translations: [Pneumonia, unspecified organism] Onset: 04-11-2022 Episodic Schizophrenia and other psychotic disorders (3 sources) Schizoaffective disorder, unspecified; Translations: [Unspecified psychosis not due to a substance or known physiological condition] Onset: 04-11-2022 Chronic Screening and history of mental health and substance abuse codes (2 sources) Personal history of nicotine dependence; Translations: [Personal history of nicotine dependence] Onset: 04-11-2022 Episodic Septicemia (except in labor) (14 sources) Infectious agent in bloodstream; Translations: [Sepsis, unspecified organism] Onset: 04-10-2022 Episodic Thyroid disorders (4 sources) Hypothyroidism, unspecified; Translations: [Hypothyroidism, unspecified] Onset: 04-11-2022 Chronic Unclassified (1 source) Contact with and (suspected) exposure to COVID-19; Translations: [Contact with and (suspected) exposure to COVID-19] Onset: 04-11-2022 Unclassified (1 source) Acute cough; Translations: [Acute cough] Onset: 10-21-2024 Past or Other Problems Problem Classification Problem Date Documented Da te Episodic/Chronic Other aftercare (1 source) Other long-term (current) drug therapy; Translations: [Other terminal supervisor (current) drug therapy] Onset: 08-07-2024 Episodic Other connective tissue disease (2 sources) Muscle weakness (generalized); Translations: [Muscle weakness (generalized)] Onset: 04-11-2024 Episodic Unclassified (1 source) Contact with and (suspected) exposure to COVID-19; Translations: [Contact with and (suspected) exposure to COVID-19] Onset: 04-11-2022 Unclassified (1 source) Acute cough; Translations: [Acute cough] Onset: 10-21-2024 Urinary tract infections (11 sources) Urinary tract infectious disease; Translations: [Urinary tract infection, site not specified] Onset: 11-27-2020 Episodic Results Test Name Value Interpretation Reference Range Facility TSH DL <= 0.005 mIU/L QnOrde red By: Wale Cadena on 12-18-2024 TSH Qn 3.040 uIU/mL 0.300-4.200 [facility] Serum or plasma valproate me asurement (mass/volume)Ordered By: Wale Cadena on 11-30-2024 Valproate [Mass/Vol] 35 ug/mL Low 50-100 [facility] Comment on above: Valproic Acid concen trations >100 ug/mL are potentially toxic. 36on 11-28-2024 36 S: 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 R: Page to Dr. Cadena and he will call the TRACK LINER OPERATOR now. Reason for Disposition Caller has URGENT medicine question about med that PCP or specialist prescribed and triager unable to answer question Protocols used: Medication Question [id number] 36on 11-27-2024 36 S: Shyanne with [facility] spoke with [facility] nurse regarding medication interaction B: Onset of symptoms/concern n/a A: Patient prescribed IV imipenem, supposed to start tonight. Pharmacy called [facility] and stated that there is an interaction with this medication with Depakote. May increase the likeliness of seizures. R: Paged Dr Cadena with above message from [facility] and Shyanne with [facility] [place] #[phone]. Dr Cadena called [facility]. No further orders at this time. Reason for Disposition [1] Caller has URGENT medicine question about med that PCP or specialist prescribed AND [2] triager unable to answer question Protocols used: [id number] Bil[facility] Test strip Ql (U)O rdered By: Wale Cadena on 11-23-2024 Bilirubin Ql (U) Negative Negative [facility] Ketones Test strip Ql (U)Ord ered By: Wale Cadena on 11-23-2024 Ketones Ql (U) Negative Negative [facility] Nitrite Test strip Ql (U)Ord ered By: Wale Cadena on 11-23-2024 Nitrite Ql (U) Negative Negative [facility] Protein Test strip Ql (U)Ord ered By: Wale Cadena on 11-23-2024 Protein Ql (U) Negative Negative [facility] Urine clarityOrdered By: Meggan Cadena on 11-23-2024 Clarity (U) Clear Clear [facility] Urine color determinationOrd ered By: Wale Cadena on 11-23-2024 Color (U) Yellow Yellow [facility] Urine cultureOrdered By: Meggan Cadena on 11-23-2024 Bacteria identified Cx Nom (U) ESBL Escherichia coli Abnormal [facility] Urine glucose detectionOrder ed By: Wale Cadena on 11-23-2024 Glucose Ql (U) Normal mg/dl Normal [facility] Urine leukocyte esterase det ection by dipstickOrdered By: Wale Cadena on 11-23-2024 Leukocyte esterase Test strip Ql (U) 500 /ul High Negative [facility] Urine pHOrdered By: Wale ulloa on 11-23-2024 pH (U) 7.0 [pH] 5.0 - 8.0 [facility] Urine specific gravity measu rementOrdered By: Wale Cadena on 11-23-2024 Specific gravity (U) [Rel density] 1.010 1.002-1.030 [facility] Urine urobilinogen measureme ntOrdered By: Wale Cadena on 11-23-2024 Urobilinogen Ql (U) Normal mg/dl Normal [facility] BASIC METABOLIC PANELon 10-03 Anion gap [Moles/Vol] 7 mmol/L Normal 3-13 [facility] Comment on above: Performed By: #### L [id number], [id number] #### Education Intern: RAQUEL SILVERIO ([phone]) [facility] (SWRLAB) [address] [place] [address] [place] Calcium [Mass/Vol] 9.2 mg/dL Normal 8.8-10.0 [facility] Comment on above: Performed By: #### L AB15, [id number] #### Education Intern: RAQUEL SILVERIO ([id number]) [facility] YOSELYN RITTMAN (SWRLAB) [address] [place] [address] [place] Chloride [Moles/Vol] 101 mmol/L Normal 98-107 [facility] Comment on above: Performed By: #### L [id number], [id number] #### Education Intern: RAQUEL SILVERIO ([id number]) [facility] (SWRLAB) [address] [place] [address] [place] CO2 [Moles/Vol] 27 mmol/L Normal 23-31 [facility] Comment on above: Performed By: #### L [id number], [id number] #### Education Intern: RAQUEL SILVERIO ([id number]) [facility] YOSELYN RITTMAN (SWRLAB) [address] Creatinine [Mass/Vol] 0.82 mg/dL Normal 0.57-1.11 [facility] Comment on above: Performed By: #### L [id number], [id number] #### Education Intern: RAQUEL SILVERIO ([id number]) [facility] NASSAR RITTMAN (SWRLAB) [address] [place] [address] [place] GLOMERULAR FILTRATION RATE ML/MIN/1.73 SQ M.PREDICTED 74.7 mL/min/1.73m*2 Normal >60.0 [facility] Comment on above: Result Comment: Calc ulation based on the Chronic Kidney Disease Epidemiology Collaboration (CKD-EPI) equation refit without adjustment for race Performed By: #### L [id number], [id number] #### Education Intern: RAQUEL SILVERIO ([id number]) [facility] NASSAR RITTMAN (SWRLAB) [address] [place] [address] [place] Glucose [Mass/Vol] 96 mg/dL Normal 82-115 [facility] Comment on above: Performed By: #### L [id number], [id number] #### Education Intern: RAQUEL SILVERIO ([id number]) [facility] NASSAR RITTMAN (SWRLAB) [address] [place] [address] Potassium [Moles/Vol] 4.8 mmol/L Normal 3.5-5.1 [facility] Comment on above: Result Comment: [facility] potassium values may be up to 0.5 mmol/L lower than serum values. Performed By: #### L [id number], [id number] #### Education Intern: RAQUEL SILVERIO ([id number]) [facility] NASSAR RITTMAN (SWRLAB) [address] [place] [address] [place] Sodium [Moles/Vol] 135 mmol/L Low 136-145 [facility] Comment on above: Performed By: #### L [id number], [id number] #### Education Intern: RAQUEL SILVERIO ([id number]) [facility] NASSAR RITTMAN (SWRLAB) [address] [place] [address] [place] Urea nitrogen [Mass/Vol] 31 mg/dL High 9-23 [facility] Comment on above: Performed By: #### L [id number], [id number] #### Education Intern: RAQUEL SILVERIO ([id number]) [facility] MARGAUX (SWRLAB) [address] Basic metabolic 1998 panelon 10-21-2024 Anion gap [Moles/Vol] 7 mmol/L 3 - 13 mmol/L [facility] Calcium [Mass/Vol] 9.2 mg/dL 8.8 - 10. 0 mg/dL [facility] Chloride [Moles/Vol] 101 mmol/L 98 - 10 7 mmol/L [facility] CO2 [Moles/Vol] 27 mmol/L 23 - 31 mmol/L [facility] Creatinine [Mass/Vol] 0.82 mg/dL 0.57 - 1.11 mg/dL [facility] GFR/1.73 sq M.predicted (S/P/Bld) [Vol rate/Area] 74.7 mL/min - PINF [facility] Comment on above: Calculation based on the Chronic Kidney Disease Epidemiology Collaboration (CKD-EPI) equation refit without adjustment for race Glucose [Mass/Vol] 96 mg/dL 82 - 115 mg/dL [facility] Interpretation and review of laboratory results Abnormal [facility] Potassium [Moles/Vol] 4.8 mmol/L 3.5 - 5.1 mmol/L [facility] Comment on above: Plasma potassium ondina ues may be up to 0.5 mmol/L lower than serum values. Sodium [Moles/Vol] 135 mmol/L Low 136 - 145 mmol/L [facility] Urea nitrogen [Mass/Vol] 31 mg/dL High 9 - 23 mg/d L [facility] CBC W Auto Differential pane l (Bld)Ordered By: Davis Berg on 10-21-2024 Basophils (Bld) [#/Vol] 0.1 10*3/uL 0.0 - 0.2 10*3/uL [facility] Basophils/100 WBC (Bld) 0.9 % 0.0 - 2.0 % [facility] Eosinophils (Bld) [#/Vol] 0.4 10*3/uL 0.0 - 0.5 10*3/uL [facility] Eosinophils/100 WBC (Bld) 4 % 0.0 - 6.0 % [facility] Erythrocyte distribution width (RBC) [Ratio] 18.2 % High 11.5 - 15.0 % [facility] Hematocrit (Bld) [Volume fraction] 34.8 % Low 35.0 - 47.0 % [facility] Hemoglobin (Bld) [Mass/Vol] 11 g/dL Low 11.7 - 16.0 g/dL [facility] Immature granulocytes (Bld) [#/Vol] 0 10*3/uL NINF - 0.1 10*3/uL [facility] Immature granulocytes/100 WBC (Bld) 0.3 % 0.0 - 2.0 % [facility] Interpretation and review of laboratory results Abnormal [facility] Lymphocytes (Bld) [#/Vol] 2.8 10*3/uL 1.0 - 4.3 10*3/uL [facility] Lymphocytes/100 WBC (Bld) 32.1 % 15.0 - 45.0 % [facility] MCH (RBC) [Entitic mass] 24.9 pg Low 26. 0 - 34.0 pg [facility] MCHC (RBC) [Mass/Vol] 31.6 % 30.5 - 36.0 % [facility] MCV (RBC) [Entitic vol] 78.9 fL 77.0 - 99.0 fL [facility] Monocytes (Bld) [#/Vol] 1.1 10*3/uL High 0.0 - 0.9 10*3/uL [facility] Monocytes/100 WBC (Bld) 12.4 % 5.0 - 13.0 % [facility] Neutrophils (Bld) [#/Vol] 4.4 10*3/uL 1.8 - 7.5 10*3/uL [facility] Neutrophils/100 WBC (Bld) 50.3 % 38.0 - 82.0 % [facility] Nucleated RBC/100 WBC (Bld) [Ratio] 0 % [facility] Platelet mean volume (Bld) [Entitic vol] 9.4 fL 9.0 - 12.7 fL [facility] Comment on above: MPV is a calculated measurement using platelet volume ratio Platelets (Bld) [#/Vol] 321 10*3/uL 140 - 440 10*3/uL [facility] RBC (Bld) [#/Vol] 4.41 10*6/uL 3.80 - 5.2 0 10*6/uL [facility] WBC (Bld) [#/Vol] 8.8 10*3/uL 3.6 - 10.7 10*3/uL [facility] CBC WITH AUTO DIFFERENTIALon 10-21-2024 Basophils (Bld) [#/Vol] 0.1 10*3/uL Normal 0.0-0.2 [facility] Comment on above: Performed By: #### L [id number] #### Education Intern: RAQUEL SILVERIO ([id number]) [facility] Y[facility]N [facility] (SWRLAB) [address] [place] [address] [place] Basophils/100 WBC (Bld) 0.9 % Normal 0.0-2.0 [facility] Comment on above: Performed By: #### L [id number] #### Education Intern: RAQUEL SILVERIO ([id number]) [facility] YOSEYLN [facility] (SWRLAB) [address] [place] [address] [place] Eosinophils (Bld) [#/Vol] 0.4 10*3/uL Normal 0.0-0.5 [facility] Comment on above: Performed By: #### L [id number] #### Education Intern: RAQUEL SILVERIO ([id number]) [facility] (SWRLAB) [address] [place] [address] [place] Eosinophils/100 WBC (Bld) 4.0 % Normal 0.0-6.0 [facility] Comment on above: Performed By: #### L [id number] #### Education Intern: RAQUEL SILVERIO ([id number]) [facility] YOSE[facility]N [facility]ITTMAN (SWRLAB) [address] [place] [address] Erythrocyte distribution width (RBC) [Ratio] 18.2 % High 11.5-15.0 [facility] Comment on above: Performed By: #### L [id number] #### Education Intern: RAQUEL SILVERIO ([id number]) [facility] Y[facility]N [facility] (SWRLAB) [address] [place] [address] Hematocrit (Bld) [Volume fraction] 34.8 % Low 35.0-47.0 [facility] Comment on above: Performed By: #### L [id number] #### Education Intern: RAQUEL SILVERIO ([id number]) [facility] NASSAR RITTMAN (SWRLAB) [address] [place] [address] Hemoglobin (Bld) [Mass/Vol] 11.0 g/dL Low 11.7-16.0 [facility] Comment on above: Performed By: #### L [id number] #### Education Intern: RAQUEL SILVERIO ([id number]) [facility] NASSAR RITTMAN (SWRLAB) [address] [place] [address] IMMATURE GRANS % 0.3 % Normal 0.0-2.0 [facility] Comment on above: Performed By: #### L [id number] #### Education Intern: RAQUEL SILVERIO ([id number]) [facility] NASSAR RITTMAN (SWRLAB) [address] [place] [address] IMMATURE GRANS ABSOLUTE 0.0 10*3/uL Normal <0.1 [facility] Comment on above: Performed By: #### L [id number] #### Education Intern: RAQUEL SILVERIO ([id number]) [facility] NASSAR RITTMAN (SWRLAB) [address] [place] [address] [place] Lymphocytes (Bld) [#/Vol] 2.8 10*3/uL Normal 1.0-4.3 [facility] Comment on above: Performed By: #### L [id number] #### Education Intern: RAQUEL SILVERIO ([id number]) [facility] NASSAR RITTMAN (SWRLAB) [address] [place] [address] [place] Lymphocytes/100 WBC (Bld) 32.1 % Normal 15.0-45.0 [facility] Comment on above: Performed By: #### L [id number] #### Education Intern: RAQUEL SILVERIO ([id number]) NANNETTE NASSAR RITTMAN (SWRLAB) [address] [place] [address] MCH (RBC) [Entitic mass] 24.9 pg Low 26.0-34.0 [facility] Comment on above: Performed By: #### L [id number] #### Education Intern: RAQUEL SILVERIO ([id number]) NANNETTE NASSAR RITTMAN (SWRLAB) [address] [place] [address] MCHC 31.6 % Normal 30.5-36.0 [facility] Comment on above: Performed By: #### L [id number] #### Education Intern: RAQUEL SILVERIO ([id number]) [facility] NASSAR RITTMAN (SWRLAB) [address] [place] [address] MCV (RBC) [Entitic vol] 78.9 fL Normal 77.0-99.0 [facility] Comment on above: Performed By: #### L [id number] #### Education Intern: RAQUEL SILVERIO ([id number]) [facility] NASSAR R[facility]TMAN (SWRLAB) [address] [place] [address] Monocytes (Bld) [#/Vol] 1.1 10*3/uL High 0.0-0.9 [facility] Comment on above: Performed By: #### L [id number] #### Education Intern: RAQUEL SILVERIO ([id number]) [facility] NASSAR R[facility] (SWRLAB) [address] [place] [address] Monocytes/100 WBC (Bld) 12.4 % Normal 5.0-13.0 [facility] Comment on above: Performed By: #### L [id number] #### Education Intern: RAQUEL SILVERIO ([id number]) NANNETTE NASSAR RITTMAN (SWRLAB) [address] [place] [address] NEUTROPHILS ABSOLUTE 4.4 10*3/uL Normal 1.8-7.5 [facility] Comment on above: Performed By: #### L [id number] #### Education Intern: RAQUEL SILVERIO ([id number]) [facility] NASSAR RITTMAN (SWRLAB) [address] [place] [address] [place] Neutrophils/100 WBC (Bld) 50.3 % Normal 38.0-82.0 [facility] Comment on above: Performed By: #### L [id number] #### Education Intern: RAQUEL SILVERIO ([id number]) [facility] NASSAR RITTMAN (SWRLAB) [address] [place] [address] NRBC 0.0 /100 WBCs Normal 0.0-2.0 [facility] Comment on above: Performed By: #### L [id number] #### Education Intern: RAQUEL SILVERIO ([id number]) [facility] NASSAR RITTMAN (SWRLAB) [address] [place] [address] Platelet mean volume (Bld) [Entitic vol] 9.4 fL Normal 9.0-12.7 [facility] Comment on above: Result Comment: MPV is a calculated measurement using platelet volume ratio Performed By: #### L [id number] #### Education Intern: RAQUEL SILVERIO ([id number]) [facility] NASSAR RITTMAN (SWRLAB) [address] [place] [address] [place] Platelets (Bld) [#/Vol] 321 10*3/uL Normal 140-440 [facility] Comment on above: Performed By: #### L [id number] #### Education Intern: RAQUEL SILVERIO ([id number]) [facility] NASSAR RITTMAN (SWRLAB) [address] [place] [address] [place] RBC (Bld) [#/Vol] 4.41 10*6/uL Normal 3.80-5.20 [facility] Comment on above: Performed By: #### L [id number] #### Education Intern: RAQUEL SILVERIO ([id number]) [facility] NASSAR RITTMAN (SWRLAB) [address] [place] [address] [place] WBC (Bld) [#/Vol] 8.8 10*3/uL Normal 3.6-10.7 [facility] Comment on above: Performed By: #### L [id number] #### Education Intern: RAQUEL SILVERIO ([id number]) [facility] [place] (SWRLAB) [address] [place] [address] [place] COVID-19, Flu A/B, and RSV C omboon 10-21-2024 Interpretation and review of laboratory results Normal [facility] ED Nursing Noteon 10-21-2024 ED Nursing Note Gave report and discharge instructions to Belinda bo. Pt leaves ED in ambulance. [facility] ED Nursing Note Called report to Lilia at [facility]. [facility] ED Provider Noteon ED Provider Note EMERGENCY DEPARTMENT ENCOUNTER Pt Name: Ubaldo Arango Birthdate 1950 Date of evaluation: 10/21/2024 ED Provider: Nilo Kennedy MD CHIEF COMPLAINT Chief Complaint Patient presents with Cough Per ambulance pt has had chest congestion and nausea, pt non-verbal and unable to express symptoms Nausea HISTORY OF PRESENT ILLNESS (Location/Symptom, Timing/Onset, Context/Setting, Quality, Duration, Modifying Factors, Severity) Note limiting factors. I wore appropriate PPE for the entirety of this encounter. HPI Ubaldo Arango is a 74 y.o. female who presents to the emergency department with chief complaint of cough, congestion, nausea. 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 She is unable to communicate with us to give history. She is sent to us from her assisted because of increased cough, sneezing, congestion. Patient also had an episode of vomiting. Nursing Notes were reviewed. Limitations to history: Altered mental status/confusion Outside historians: EMS REVIEW OF SYSTEMS Review of Systems: Limited due to patient's history of anoxic brain injury PAST MEDICAL HISTORY Past Medical History: Diagnosis Date Anoxic brain damage (CMS/HCC) Aphasia Aphasia Constipation Convulsions (CMS/HCC) Dementia (CMS/HCC) Dementia (CMS/HCC) Dysphagia Dysphagia Gastroesophageal reflux Hearing loss HTN (hypertension) Hypothyroidism PVD (peripheral vascular disease) (CMS/HCC) Schizoaffective disorder (CMS/HCC) de Schizoaffective disorder (CMS/HCC) Smoker SURGICAL HISTORY No past surgical history on file. CURRENT MEDICATIONS Previous Medications BUSPIRONE (BUSPAR) 10 MG TABLET Take 10 mg by mouth 3 times daily. DIVALPROEX (DEPAKOTE) 125 MG EC TABLET Take 125 mg by mouth 3 times daily. ETHOSUXIMIDE (ZARONTIN) 250 MG/5ML SOLUTION Take 600 mg by mouth 2 times daily. FAMOTIDINE (PEPCID) 20 MG TABLET Take 20 mg by mouth daily. FUROSEMIDE (LASIX) 8 MG/ML SOLUTION Take 80 mg by mouth daily. LEVOTHYROXINE (SYNTHROID, LEVOXYL) 100 MCG TABLET Take 100 mcg by mouth daily. LORATADINE (CLARITIN) 10 MG TABLET Take 10 mg by mouth daily. METOCLOPRAMIDE (REGLAN) 10 MG TABLET Take 10 mg by mouth 2 times daily. METOPROLOL TARTRATE (LOPRESSOR) 100 MG TABLET Take 100 mg by mouth daily. QUETIAPINE XR (SEROQUEL XR) 50 MG 24 HR TABLET Take 50 mg by mouth 2 times daily. SERTRALINE (ZOLOFT) 25 MG TABLET Take 75 mg by mouth daily. THERAPEUTIC MULTIVITAMIN-MINERA LS (THERAGRAN-M) TABLET Take 1 tablet by mouth daily. ALLERGIES Patient has no known allergies. FAMILY HISTORY No family history on file. SOCIAL HISTORY Social History Socioeconomic History Marital status: Single Tobacco Use Smoking status: Former Current packs/day: 0.00 Types: Cigarettes Quit date: 08/05/1979 Years since quittin.2 Smokeless tobacco: Never Substance and Sexual Activity Drug use: Never SCREENINGS PHYSICAL EXAM ED Triage Vitals [10/21/24 1327] Temp Heart Rate Resp BP 36.1 ?C (96.9 ?F) 80 (!) 28 (!) 156/74 SpO2 Temp Source Heart Rate Source Patient Position 96 % Axillary Monitor Lying BP Location FiO2 (%) Left arm -- Physical Exam: Vital signs reviewed in nurse's notes. Patient is nontoxic in appearance. No respiratory distress. Head: Normocephalic, atraumatic Eyes: Pupils are equal, round and reactive to light. EOMI. Conjunctiva clear. Sclera anicteric ENT: Mucous membranes moist. Throat shows no erythema exudates or edema. Neck: No anterior adenopathy. No tenderness or stiffness. Lungs: Clear to auscultation bilaterally. No wheezing rales or rhonchi. Heart: Regular rate and rhythm. No audible murmur or gallop. Abdomen: Soft, nondistended, nontender. No rebound or guarding. No signs of peritonitis. Extremities: No gross deformity. No obvious tenderness. No obvious joint swelling. No calf tenderness. No lower extremity edema. Good distal pulses in all 4 extremities. Neurologic: Alert cannot assess orientation. No VS focal motor, sensory deficits in all 4 extremities. DIAGNOSTIC RESULTS RADIOLOGY (Per Emergency Physician): Chest x-ray: No acute infiltrate. No effusion. Interpreted by this examiner. Interpretation per the Radiologist below, if available at the time of this note: XR chest 1 view Final Result No evidence of an acute cardiopulmonary abnormality. Report Dictated on Electronically Signed By: Arden Roblero MD Electronically Signed Date/Time: 10/21/2024 2:42 PM EDT LABS: Labs Reviewed BASIC METABOLIC PANEL - Abnormal Result Value SODIUM 135 (*) POTASSIUM 4.8 CHLORIDE 101 CARBON DIOXIDE 27 UREA NITROGEN 31 (*) CREATININE 0.82 GLUCOSE 96 CALCIUM 9.2 ANION GAP 7 eGFR 74.7 CBC WITH AUTO DIFFERENTIAL - Abnormal Auto WBC 8.8 RBC 4.41 Hemoglobin 11.0 (*) Hematocrit 34.8 (*) MCV 78.9 MCH 24.9 (*) MCHC 31.6 RDW 18.2 (*) Platelets 321 (more content not included)... Normal [facility] Laboratory - Chemistry and C hemistry - challengeon 10-21-2024 Magnesium [Mass/Vol] 2.1 mg/dL 1.6 - 2 .6 mg/dL [facility] - Microbiology an d Antimicrobial susceptibilityon 10-21-2024 FLUAV RNA VICKI+probe Ql (Resp) Not detected Not Detected [facility] FLUBV RNA VICKI+probe Ql (Resp) Not detected Not Detected [facility] RSV RNA VICKI+probe Ql (Resp) Not detected Not Detected [facility] SARS-CoV-2 (COVID-19) RNA VICKI+probe Ql (Resp) Not detected Not Detected [facility] SARS-CoV-2 (COVID-19) RNA VICKI+probe Ql (Unsp spec) Methodology: real-time, RT-PCR The SARS-CoV-2, Flu A/B, and RSV Combo assay is intended for in vitro diagnostic use under the FDA Emergency Use Authorization (EUA). This test has not been FDA cleared or approved. In compliance with this authorization, please visit www.fda.gov/media/35/download or www.fda.gov/media/36/download to access the applicable information sheets. [facility] MAGNESIUMon 10-21-2024 Magnesium [Mass/Vol] 2.1 mg/dL Normal 1.6-2.6 [facility] Comment on above: Result Comment: JOHN R COMMENTS: Higher values can be expected in females during menses. Performed By: #### L [id number], [id number] #### Education Intern: RAQUEL SILVERIO ([id number]) [facility] [employer] [address] [place] [address] Magnesium [Mass/Vol]on 10-21 Interpretation and review of laboratory results Normal [facility] Higher values can be expected in females during menses. [facility] No Panel Informationon 10-21 [facility] SARS-COV-2, FLU A/B, AND RSV COMBOon 10-21-2024 SARS-CoV-2 (COVID-19) RNA VICKI+probe Ql (Unsp spec) SARS-COV-2 Reference Not Detected Not Detected RESPIRATORY SYNCYTIAL VIRUS Reference Not Detected Not Detected INFLUENZA A (CEPHEID) Reference Not Detected Not Detected INFLUENZA B (CEPHEID) Reference Not Detected Not Detected ORDER COMMENTS: Methodology: real-time, RT-PCR The SARS-CoV-2, Flu A/B, and RSV Combo assay is intended for in vitro diagnostic use under the FDA Emergency Use Authorization (EUA). This test has not been FDA cleared or approved. In compliance with this authorization, please visit www.fda.gov/media/ 35547/download or www.fda.gov/media/36/download to access the applicable information sheets. Normal [facility] Comment on above: Performed By: #### L [id number] #### Education Intern: RAQUEL SILVERIO ([id number]) [facility] [employer] ([employer]) [address] [place] [address] XR Chest Single viewon 10-21 No evidence of an acute cardiopulmonary abnormality. Report Dictated on Electronically Signed By: Arden Roblero MD Electronically Signed Date/Time: 10/21/2024 2:42 PM EDT [facility] Patient Name: UBALDO ARANGO : 1950 Exam Date/Time: 10/21/2024 14:19 Procedure: XR CHEST 1 VIEW Ordering Provider: KENNEDY KEVIN Reason For Exam: DYSPNEA AP CHEST X-RAY CLINICAL INDICATION: DYSPNEA TECHNIQUE: AP portable x-ray of the chest. COMPARISON: 04/10/2022 FINDINGS: Limitations: Reduced lung volumes. Support devices: None Heart/Mediastinum: Stable mildly enlarged cardiac silhouette with mitral annulus calcifications. Lungs: Low lung volumes. No definite airspace consolidation or pleural effusion. Small linear opacity in the right midlung is most likely chronic. Bones: Unremarkable [facility] Arden Roblero MD - 10/21/2024 Patient Name: UBALDO ARANGO : 1950 Exam Date/Time: 10/21/2024 14:19 Procedure: XR CHEST 1 VIEW Ordering Provider: KENNEDY KEVIN Reason For Exam: DYSPNEA AP CHEST X-RAY CLINICAL INDICATION: DYSPNEA TECHNIQUE: AP portable x-ray of the chest. COMPARISON: 04/10/2022 FINDINGS: Limitations: Reduced lung volumes. Support devices: None Heart/Mediastinum: Stable mildly enlarged cardiac silhouette with mitral annulus calcifications. Lungs: Low lung volumes. No definite airspace consolidation or pleural effusion. Small linear opacity in the right midlung is most likely chronic. Bones: Unremarkable IMPRESSION: No evidence of an acute cardiopulmonary abnormality. Report Dictated on Electronically Signed By: Arden Roblero MD Electronically Signed Date/Time: 10/21/2024 2:42 PM EDT [facility] Radiology Study observation (narrative) [facility] XR Chest Single viewOrdered By: Arden Roblero on 10-21-2024 [facility] Work Phone: 36on 07-11-2024 36 S: Barb, Nurse at [facility] [phone] spoke with [facility] nurse regarding medication problem B: Onset of symptoms/concern 07/11/24 A: [facility] patient needs refill of Hydrocodone 5/325 mg one by mouth daily. [facility] pharmacy is [facility] ([facility]) R: Advised Barb that medication is a narcotic and will have to wait until office is open. Barb understands care advice. No further needs at this time. Barb instructed to call back with new or worsening symptoms. Reason for Disposition Caller requesting a CONTROLLED substance prescription refill (e.g., narcotics, ADHD medicines) Protocols used: Medication Refill and Renewal [facility] Basophil percentageOrdered B y: Wale Cadena on 10-24-2023 Bilirubin [Mass/Vol] 0.20 mg/dL 0.20-1.00 [facility] Comment on above: For patients on eltr ombopag therapy, use of Dimension [place] TBIL is not recommended. Chloride [Moles/Vol] 107 mmol/L 98-107 [facility] Cholesterol [Mass/Vol] 195 mg/dL <200 [facility] Comment on above: <200 mg/dL Desirable 200-240 mg/dL Borderline >240 mg/dL High Risk Glucose [Mass/Vol] 84 mg/dL 74-106 [facility] Hemoglobin (Bld) [Mass/Vol] 11.9 g/dL 12.0-15.0 [facility] Potassium [Moles/Vol] 4.5 mmol/L 3.5-5.1 [facility] Protein [Mass/Vol] 7.3 g/dL 6.4-8.2 [facility] Sodium [Moles/Vol] 138 mmol/L 136-145 [facility] Triglyceride [Mass/Vol] 247 mg/dL <199 [facility] Comment on above: The drugs N-Acetylcy steine and Metamizole may falsely depress this assay.Serum Triglycerides Reference Interval Normal <150 mg/dL Borderline high 150 - 199 mg/dL High 200 - 499 mg/dL Very High > or = 500 mg/dL WBC (Bld) [#/Vol] 6.8 10*3/uL 4.4-11.0 [facility] Determination of erythrocyte mean corpuscular volume (MCV)Ordered By: Wale Cadena on 10-24-2023 MCV (RBC) [Entitic vol] 88.3 fL 81-99 [facility] Erythrocyte distribution wid th ratioOrdered By: Wale Cadena on 10-24-2023 Erythrocyte distribution width (RBC) [Ratio] 16.3 % 11.6-14.6 [facility] Erythrocyte distribution wid th standard deviationOrdered By: Wale Cadena on 10-24-2023 Erythrocyte distribution width (RBC) [Entitic vol] 52.7 fL 35.1-43.9 [facility] Hematocrit Auto (Bld) [Volum e fraction]Ordered By: Wale Cadena on 10-24-2023 Hematocrit (Bld) [Volume fraction] 37.0 % 37-47 [facility] Laboratory - Chemistry and C hemistry - challengeOrdered By: Wale Cadena on 10-24-2023 Albumin/Globulin [Mass ratio] 0.7 {ratio} 0.9-2.4 [facility] ALP [Catalytic activity/Vol] 62 U/L 45-117 [facility] ALT [Catalytic activity/Vol] 12 U/L 13-56 [facility] Cholesterol in HDL [Mass/Vol] 42 mg/dL >40 [facility] Comment on above: The drugs N-Acetylcy steine and Metamizole may falsely depress this assay. Reference Range HDL <40 mg/dL Low HDL Cholesterol HDL >or= 60 mg/dL High HDL Cholesterol Cholesterol in LDL [Mass/Vol] 104 mg/dL 0-130 [facility] CO2 [Moles/Vol] 26.0 mmol/L 21.0-32.0 [facility] Globulin (S) [Mass/Vol] 4.3 g/dL 2.2-4.2 [facility] Urea nitrogen/Creatinine [Mass ratio] 40.4 mg/mg 10-20 [facility] Laboratory - Hematology and Cell countsOrdered By: Wale Cadena on 10-24-2023 MCH (RBC) [Entitic mass] 28.4 pg 27.0-32.0 [facility] MCHC (RBC) [Mass/Vol] 32.2 g/dL 32-36 [facility] Platelet mean volume (Bld) [Entitic vol] 10.1 fL 6.2-12.0 [facility] Platelets (Bld) [#/Vol] 336 10*3/uL 150-450 [facility] No Panel InformationOrdered By: Wale Cadena on 10-24-2023 Estimated GFR (MDRD) Amer 91 mL/min >60 [facility] Comment on above: GFR Calc Estimated GFR (MDRD) Non-Af Amer 75 mL/min >60 [facility] Comment on above: Non- GFR Calc VLDL Cholesterol 49 mg/dL 5-40 [facility] RBC Auto (Bld) [#/Vol]Ordere d By: Wale Cadena on 10-24-2023 RBC (Bld) [#/Vol] 4.19 10*6/uL 4.2-5.4 [facility] Serum or plasma calcium love urement (mass/volume)Ordered By: Wale Cadena on 10-24-2023 Calcium [Mass/Vol] 9.0 mg/dL 8.5-10.1 [facility] Serum or plasma creatinine m easurement (mass/volume)Ordered By: Wale Cadena on 10-24-2023 Creatinine [Mass/Vol] 0.79 mg/dL 0.55-1.02 [facility] Comment on above: The validity of the calculated GFR & GFRAA in patients over 70 years has not been determined. Clinical correlation is essential. Serum or plasma urea nitroge n measurement (mass/volume)Ordered By: Wale Cadena on 10-24-2023 Urea nitrogen [Mass/Vol] 32 mg/dL 7-18 [facility] Thin prep Papanicolaou smear with manual screeningOrdered By: Wale Cadena on 10-24-2023 Thin prep Papanicolaou smear with manual screening 3.0 g/dL 3.2-5.0 [facility] Thin prep Papanicolaou smear with manual screening 17 U/L 15-37 [facility] Thin prep Papanicolaou smear with manual screening 5 5-15 [facility] No Panel InformationOrdered By: Wale Cadena on 09-27-2023 Valproic Acid (Depakene) Level 45 ug/mL 50-100 [facility] Basophil percentageOrdered B y: Wale Cadena on 09-20-2023 Cholesterol [Mass/Vol] 211 mg/dL <200 [facility] Comment on above: <200 mg/dL Desirable 200-240 mg/dL Borderline >240 mg/dL High Risk Triglyceride [Mass/Vol] 291 mg/dL <199 [facility] Comment on above: The drugs N-Acetylcy steine and Metamizole may falsely depress this assay.Serum Triglycerides Reference Interval Normal <150 mg/dL Borderline high 150 - 199 mg/dL High 200 - 499 mg/dL Very High > or = 500 mg/dL Laboratory - Chemistry and C hemistry - challengeOrdered By: Wale Cadena on 09-20-2023 Cholesterol in HDL [Mass/Vol] 46 mg/dL >40 [facility] Comment on above: The drugs N-Acetylcy steine and Metamizole may falsely depress this assay. Reference Range HDL <40 mg/dL Low HDL Cholesterol HDL >or= 60 mg/dL High HDL Cholesterol Cholesterol in LDL [Mass/Vol] 107 mg/dL 0-130 [facility] No Panel InformationOrdered By: Wale Cadena on 09-20-2023 VLDL Cholesterol 58 mg/dL 5-40 [facility] Whole blood hemoglobin A1c/t otal hemoglobin ratio (mass fraction)Ordered By: Wale Cadena on 09-20-2023 HbA1c (Bld) [Mass fraction] 5.5 % 3.8-5.6 [facility] Comment on above: Normal < 5.7 % Predi abetic 5.7 - 6.4 % Diabetic >or= 6.5 % Please note range changes. No Panel InformationOrdered By: Wale Cadena on 08-29-2023 Valproic Acid (Depakene) Level 11 ug/mL 50-100 [facility] Basophil percentageOrdered B y: Wale Cadena on 08-26-2023 Bilirubin [Mass/Vol] 0.20 mg/dL 0.20-1.00 [facility] Comment on above: For patients on eltr ombopag therapy, use of Dimension [place] TBIL is not recommended. Chloride [Moles/Vol] 105 mmol/L 98-107 [facility] Glucose [Mass/Vol] 77 mg/dL 74-106 [facility] Hemoglobin (Bld) [Mass/Vol] 12.1 g/dL 12.0-15.0 [facility] Potassium [Moles/Vol] 4.0 mmol/L 3.5-5.1 [facility] Protein [Mass/Vol] 7.6 g/dL 6.4-8.2 [facility] Sodium [Moles/Vol] 139 mmol/L 136-145 [facility] WBC (Bld) [#/Vol] 7.3 10*3/uL 4.4-11.0 [facility] Determination of erythrocyte mean corpuscular volume (MCV)Ordered By: Wale Cadena on 08-26-2023 MCV (RBC) [Entitic vol] 87.2 fL 81-99 [facility] Erythrocyte distribution wid th ratioOrdered By: Wale Cadena on 08-26-2023 Erythrocyte distribution width (RBC) [Ratio] 15.7 % 11.6-14.6 [facility] Erythrocyte distribution wid th standard deviationOrdered By: Wale Cadena on 08-26-2023 Erythrocyte distribution width (RBC) [Entitic vol] 49.6 fL 35.1-43.9 [facility] Hematocrit Auto (Bld) [Volum e fraction]Ordered By: Wale Cadena on 08-26-2023 Hematocrit (Bld) [Volume fraction] 38.0 % 37-47 [facility] Laboratory - Chemistry and C hemistry - challengeOrdered By: Wale Cadena on 08-26-2023 Albumin/Globulin [Mass ratio] 0.7 {ratio} 0.9-2.4 [facility] ALP [Catalytic activity/Vol] 69 U/L 45-117 [facility] ALT [Catalytic activity/Vol] 16 U/L 13-56 [facility] CO2 [Moles/Vol] 29.0 mmol/L 21.0-32.0 [facility] Globulin (S) [Mass/Vol] 4.4 g/dL 2.2-4.2 [facility] Urea nitrogen/Creatinine [Mass ratio] 34.8 mg/mg 10-20 [facility] Laboratory - Hematology and Cell countsOrdered By: Wale Cadena on 08-26-2023 MCH (RBC) [Entitic mass] 27.8 pg 27.0-32.0 [facility] MCHC (RBC) [Mass/Vol] 31.8 g/dL 32-36 [facility] Platelets (Bld) [#/Vol] 375 10*3/uL 150-450 [facility] No Panel InformationOrdered By: Wale Cadena on 08-26-2023 Estimated GFR (MDRD) Amer 86 mL/min >60 [facility] Comment on above: GFR Calc Estimated GFR (MDRD) Non-Af Amer 71 mL/min >60 [facility] Comment on above: Non- GFR Calc Platelet mean volume Fredrick-Ec ker (Bld) [Entitic vol]Ordered By: Wale Cadena on 08-26-2023 Platelet mean volume (Bld) [Entitic vol] 9.8 fL 6.2-12.0 [facility] RBC Auto (Bld) [#/Vol]Ordere d By: Wale Cadena on 08-26-2023 RBC (Bld) [#/Vol] 4.36 10*6/uL 4.2-5.4 [facility] Serum or plasma calcium love urement (mass/volume)Ordered By: Wale Cadena on 08-26-2023 Calcium [Mass/Vol] 9.5 mg/dL 8.5-10.1 [facility] Serum or plasma creatinine m easurement (mass/volume)Ordered By: Wale Cadena on 08-26-2023 Creatinine [Mass/Vol] 0.83 mg/dL 0.55-1.02 [facility] Comment on above: The validity of the calculated GFR & GFRAA in patients over 70 years has not been determined. Clinical correlation is essential. Serum or plasma urea nitroge n measurement (mass/volume)Ordered By: Wale Cadena on 08-26-2023 Urea nitrogen [Mass/Vol] 29 mg/dL 7-18 [facility] Thin prep Papanicolaou smear with manual screeningOrdered By: Wale Cadena on 08-26-2023 Thin prep Papanicolaou smear with manual screening 3.2 g/dL 3.2-5.0 [facility] Thin prep Papanicolaou smear with manual screening 12 U/L 15-37 [facility] Thin prep Papanicolaou smear with manual screening 5 5-15 [facility] Basophil percentageOrdered B y: Wale Cadena on 07-31-2023 Basophil percentage 25-50 SEEN /hpf 0-5 [facility] Bilirubin Test strip Ql (U)O rdered By: Wale Cadena on 07-31-2023 Bilirubin Ql (U) Negative Negative [facility] Culture, urineOrdered By: Marcio Smith on 07-31-2023 Bacteria identified Cx Nom (U) ESBL Escherichia coli [facility] Ketones Test strip Ql (U)Ord ered By: Wale Cadena on 07-31-2023 Ketones Ql (U) Negative Negative [facility] Mucus LM Ql (Urine sed)Order ed By: Wale Cadena on 07-31-2023 Mucus Ql (Urine sed) RARE /hpf [facility] Nitrite Test strip Ql (U)Ord ered By: Wale Cadena on 07-31-2023 Nitrite Ql (U) Negative Negative [facility] Protein Test strip Ql (U)Ord ered By: Wale Cadena on 07-31-2023 Protein Ql (U) Negative Negative [facility] Squamous epithelial cells de tection in urine sediment by light microscopyOrdered By: Wale Cadena on 07-31-2023 Epithelial cells.squamous LM Ql (Urine sed) 0-5 SEEN /hpf 5-10 [facility] Urine blood detectionOrdered By: Wale Cadena on 07-31-2023 RBC Ql (U) 10 /ul Negative [facility] RBC Ql (U) 0-5 SEEN /hpf 0-5 [facility] Urine clarityOrdered By: Meggan Cadena on 07-31-2023 Clarity (U) Sl. Cloudy Clear [facility] Urine color determinationOrd ered By: Wale Cadena on 07-31-2023 Color (U) Yellow Yellow [facility] Urine glucose detectionOrder ed By: Wale Cadena on 07-31-2023 Glucose Ql (U) Normal mg/dl Normal [facility] Urine leukocyte esterase det ection by dipstickOrdered By: Wale Cadena on 07-31-2023 Leukocyte esterase Test strip Ql (U) 500 /ul Negative [facility] Urine pHOrdered By: Wale ulloa on 07-31-2023 pH (U) 6.5 [pH] 5.0 - 8.0 [facility] Urine sediment bacteria coun t by microscopy (number/high power field)Ordered By: Wale Cadena on 07-31-2023 Bacteria LM.HPF (Urine sed) [#/Area] 1 /[HPF] None Seen [facility] Urine specific gravity measu rementOrdered By: Wale Cadena on 07-31-2023 Specific gravity (U) [Rel density] 1.010 1.002-1.030 [facility] Urobilinogen Auto test strip Ql (U)Ordered By: Wale Cadena on 07-31-2023 Urobilinogen Ql (U) Normal mg/dl Normal [facility] Basophil percentageOrdered B y: Wale Cadena on 05-27-2023 Chloride [Moles/Vol] 106 mmol/L 98-107 [facility] Glucose [Mass/Vol] 92 mg/dL 74-106 [facility] Potassium [Moles/Vol] 4.6 mmol/L 3.5-5.1 [facility] Sodium [Moles/Vol] 138 mmol/L 136-145 [facility] WBC (Bld) [#/Vol] 7.1 10*3/uL 4.4-11.0 [facility] Blood erythrocytes count (nu mber/volume)Ordered By: Wale Cadena on 05-27-2023 RBC (Bld) [#/Vol] 4.33 10*6/uL 4.2-5.4 [facility] Blood hemoglobin measurement (mass/volume)Ordered By: Wale Cadena on 05-27-2023 Hemoglobin (Bld) [Mass/Vol] 12.6 g/dL 12.0-15.0 [facility] Blood platelet mean volumeOr dered By: Wale Cadena on 05-27-2023 Platelet mean volume (Bld) [Entitic vol] 10.3 fL 6.2-12.0 [facility] Determination of erythrocyte mean corpuscular volume (MCV)Ordered By: Wale Cadena on 05-27-2023 MCV (RBC) [Entitic vol] 91.9 fL 81-99 [facility] Hematocrit Auto (Bld) [Volum e fraction]Ordered By: Wale Cadena on 05-27-2023 Hematocrit (Bld) [Volume fraction] 39.8 % 37-47 [facility] Laboratory - Chemistry and C hemistry - challengeOrdered By: Wale Cadena on 05-27-2023 CO2 [Moles/Vol] 27.0 mmol/L 21.0-32.0 [facility] Urea nitrogen/Creatinine [Mass ratio] 40.3 mg/mg 10-20 [facility] Laboratory - Hematology and Cell countsOrdered By: Wale Cadena on 05-27-2023 Erythrocyte distribution width (RBC) [Entitic vol] 52.9 fL 35.1-43.9 [facility] Erythrocyte distribution width (RBC) [Ratio] 15.5 % 11.6-14.6 [facility] MCH (RBC) [Entitic mass] 29.1 pg 27.0-32.0 [facility] MCHC Auto (RBC) [Mass/Vol]Or dered By: Wale Cadena on 05-27-2023 MCHC (RBC) [Mass/Vol] 31.7 g/dL 32-36 [facility] No Panel InformationOrdered By: Wale Cadena on 05-27-2023 Estimated GFR (MDRD) Amer 82 mL/min >60 [facility] Comment on above: GFR Calc Estimated GFR (MDRD) Non-Af Amer 68 mL/min >60 [facility] Comment on above: Non- GFR Calc Platelets bldOrdered By: Pet florida Cadena on 05-27-2023 Platelets (Bld) [#/Vol] 294 10*3/uL 150-450 [facility] Serum or plasma calcium love urement (mass/volume)Ordered By: Wale Cadena on 05-27-2023 Calcium [Mass/Vol] 9.5 mg/dL 8.5-10.1 [facility] Serum or plasma creatinine m easurement (mass/volume)Ordered By: Wale Cadena on 05-27-2023 Creatinine [Mass/Vol] 0.87 mg/dL 0.55-1.02 [facility] Comment on above: The validity of the calculated GFR & GFRAA in patients over 70 years has not been determined. Clinical correlation is essential. Serum or plasma urea nitroge n measurement (mass/volume)Ordered By: Wale Cadena on 05-27-2023 Urea nitrogen [Mass/Vol] 35 mg/dL 7-18 [facility] Thin prep Papanicolaou smear with manual screeningOrdered By: Wale Cadena on 05-27-2023 Thin prep Papanicolaou smear with manual screening 5 5-15 [facility] Basophil percentageOrdered B y: Wale Cadena on 05-23-2023 Bilirubin [Mass/Vol] 0.20 mg/dL 0.20-1.00 [facility] Comment on above: For patients on eltr ombopag therapy, use of Dimension [place] TBIL is not recommended. Chloride [Moles/Vol] 105 mmol/L 98-107 [facility] Glucose [Mass/Vol] 89 mg/dL 74-106 [facility] Potassium [Moles/Vol] 4.3 mmol/L 3.5-5.1 [facility] Protein [Mass/Vol] 7.6 g/dL 6.4-8.2 [facility] Sodium [Moles/Vol] 139 mmol/L 136-145 [facility] WBC (Bld) [#/Vol] 8.0 10*3/uL 4.4-11.0 [facility] Blood erythrocytes count (nu mber/volume)Ordered By: Wale Cadena on 05-23-2023 RBC (Bld) [#/Vol] 4.04 10*6/uL 4.2-5.4 [facility] Blood hemoglobin measurement (mass/volume)Ordered By: Wale Cadena on 05-23-2023 Hemoglobin (Bld) [Mass/Vol] 11.6 g/dL 12.0-15.0 [facility] Blood platelet mean volumeOr dered By: Wale Cadena on 05-23-2023 Platelet mean volume (Bld) [Entitic vol] 10.5 fL 6.2-12.0 [facility] Culture, urineOrdered By: Marcio Smith on 05-23-2023 Bacteria identified Cx Nom (U) Presumptive E. coli [facility] Determination of erythrocyte mean corpuscular volume (MCV)Ordered By: Wale Cadena on 05-23-2023 MCV (RBC) [Entitic vol] 93.3 fL 81-99 [facility] Hematocrit Auto (Bld) [Volum e fraction]Ordered By: Wale Cadena on 05-23-2023 Hematocrit (Bld) [Volume fraction] 37.7 % 37-47 [facility] Laboratory - Chemistry and C hemistry - challengeOrdered By: Wale Cadena on 05-23-2023 ALP [Catalytic activity/Vol] 65 U/L 45-117 [facility] ALT [Catalytic activity/Vol] 18 U/L 13-56 [facility] CO2 [Moles/Vol] 28.0 mmol/L 21.0-32.0 [facility] Globulin (S) [Mass/Vol] 4.5 g/dL 2.2-4.2 [facility] Urea nitrogen/Creatinine [Mass ratio] 35.9 mg/mg 10-20 [facility] Laboratory - Hematology and Cell countsOrdered By: Wale Cadena on 05-23-2023 Erythrocyte distribution width (RBC) [Entitic vol] 54.2 fL 35.1-43.9 [facility] Erythrocyte distribution width (RBC) [Ratio] 15.7 % 11.6-14.6 [facility] MCH (RBC) [Entitic mass] 28.7 pg 27.0-32.0 [facility] MCHC Auto (RBC) [Mass/Vol]Or dered By: Wale Cadena on 05-23-2023 MCHC (RBC) [Mass/Vol] 30.8 g/dL 32-36 [facility] No Panel InformationOrdered By: Wale Cadena on 05-23-2023 Estimated GFR (MDRD) Amer 101 mL/min >60 [facility] Comment on above: GFR Calc Estimated GFR (MDRD) Non-Af Amer 84 mL/min >60 [facility] Comment on above: Non- GFR Calc Platelets bldOrdered By: Meggan Cadena on 05-23-2023 Platelets (Bld) [#/Vol] 266 10*3/uL 150-450 [facility] Serum or plasma albumin love urement (mass/volume)Ordered By: Wale Cadena on 05-23-2023 Albumin [Mass/Vol] 3.1 g/dL 3.2-5.0 [facility] Serum or plasma albumin/glob ulin mass ratioOrdered By: Wale Cadena on 05-23-2023 Albumin/Globulin [Mass ratio] 0.7 {ratio} 0.9-2.4 [facility] Serum or plasma calcium love urement (mass/volume)Ordered By: Wale Cadena on 05-23-2023 Calcium [Mass/Vol] 9.4 mg/dL 8.5-10.1 [facility] Serum or plasma creatinine m easurement (mass/volume)Ordered By: Wale Cadena on 05-23-2023 Creatinine [Mass/Vol] 0.72 mg/dL 0.55-1.02 [facility] Comment on above: The validity of the calculated GFR & GFRAA in patients over 70 years has not been determined. Clinical correlation is essential. Serum or plasma urea nitroge n measurement (mass/volume)Ordered By: Wale Cadena on 05-23-2023 Urea nitrogen [Mass/Vol] 26 mg/dL 7-18 [facility] Thin prep Papanicolaou smear with manual screeningOrdered By: Wale Cadena on 05-23-2023 Thin prep Papanicolaou smear with manual screening 8 U/L 15-37 [facility] Thin prep Papanicolaou smear with manual screening 6 5-15 [facility] Bilirubin Test strip Ql (U)O rdered By: Wale Cadena on 05-22-2023 Bilirubin Ql (U) Negative Negative [facility] Culture, urineOrdered By: Marcio Smith on 05-22-2023 Bacteria identified Cx Nom (U) Presumptive E. coli [facility] Ketones Test strip Ql (U)Ord ered By: Wale Cadena on 05-22-2023 Ketones Ql (U) Negative Negative [facility] Nitrite Test strip Ql (U)Ord ered By: Wale Cadena on 05-22-2023 Nitrite Ql (U) Negative Negative [facility] Protein Test strip Ql (U)Ord ered By: Wale Cadena on 05-22-2023 Protein Ql (U) Negative Negative [facility] Urine blood detectionOrdered By: Wale Cadena on 05-22-2023 RBC Ql (U) 10 /ul Negative [facility] Urine clarityOrdered By: Meggan Cadena on 05-22-2023 Clarity (U) Cloudy Clear [facility] Urine color determinationOrd ered By: Wale Cadena on 05-22-2023 Color (U) Yellow Yellow [facility] Urine glucose detectionOrder ed By: Wale Cadena on 05-22-2023 Glucose Ql (U) Normal mg/dl Normal [facility] Urine leukocyte esterase det ection by dipstickOrdered By: Wale Cadena on 05-22-2023 Leukocyte esterase Test strip Ql (U) 500 /ul Negative [facility] Urine pHOrdered By: Wale ulloa on 05-22-2023 pH (U) 7.0 [pH] 5.0 - 8.0 [facility] Urine specific gravity measu rementOrdered By: Wale Cadena on 05-22-2023 Specific gravity (U) [Rel density] 1.010 1.002-1.030 [facility] Urobilinogen Auto test strip Ql (U)Ordered By: Wale Cadena on 05-22-2023 Urobilinogen Ql (U) Normal mg/dl Normal [facility] No Panel InformationOrdered By: Wale Cadena on 04-26-2023 Valproic Acid (Depakene) Level 54 ug/mL 50-100 [facility] Basophil percentageOrdered B y: Wale Cadena on 04-24-2023 Cholesterol [Mass/Vol] 169 mg/dL <200 [facility] Comment on above: <200 mg/dL Desirable 200-240 mg/dL Borderline >240 mg/dL High Risk Triglyceride [Mass/Vol] 242 mg/dL <199 [facility] Comment on above: The drugs N-Acetylcy steine and Metamizole may falsely depress this assay.Serum Triglycerides Reference Interval Normal <150 mg/dL Borderline high 150 - 199 mg/dL High 200 - 499 mg/dL Very High > or = 500 mg/dL Serum or plasma cholesterol in HDL measurement (mass/volume)Ordered By: Wale Cadena on 04-24-2023 Cholesterol in HDL [Mass/Vol] 35 mg/dL >40 [facility] Comment on above: The drugs N-Acetylcy steine and Metamizole may falsely depress this assay. Reference Range HDL <40 mg/dL Low HDL Cholesterol HDL >or= 60 mg/dL High HDL Cholesterol Serum or plasma cholesterol in VLDL measurement (mass/volume)Ordered By: Wale Cadena on 04-24-2023 Cholesterol in VLDL [Mass/Vol] 48 mg/dL 5-40 [facility] Serum or plasma low density lipoprotein (LDL) cholesterol measurement (mass/volume)Ordered By: Wale Cadena on 04-24-2023 Cholesterol in LDL [Mass/Vol] 86 mg/dL 0-130 [facility] Basophil percentageOrdered B y: Wale Cadena on 03-20-2023 Cholesterol [Mass/Vol] 184 mg/dL <200 [facility] Comment on above: <200 mg/dL Desirable 200-240 mg/dL Borderline >240 mg/dL High Risk Triglyceride [Mass/Vol] 289 mg/dL <199 [facility] Comment on above: The drugs N-Acetylcy steine and Metamizole may falsely depress this assay.Serum Triglycerides Reference Interval Normal <150 mg/dL Borderline high 150 - 199 mg/dL High 200 - 499 mg/dL Very High > or = 500 mg/dL No Panel InformationOrdered By: Wale Cadena on 03-20-2023 Valproic Acid (Depakene) Level 53 ug/mL 50-100 [facility] Serum or plasma cholesterol in HDL measurement (mass/volume)Ordered By: Wale Cadena on 03-20-2023 Cholesterol in HDL [Mass/Vol] 40 mg/dL >40 [facility] Comment on above: The drugs N-Acetylcy steine and Metamizole may falsely depress this assay. Reference Range HDL <40 mg/dL Low HDL Cholesterol HDL >or= 60 mg/dL High HDL Cholesterol Serum or plasma cholesterol in VLDL measurement (mass/volume)Ordered By: Wale Cadena on 03-20-2023 Cholesterol in VLDL [Mass/Vol] 58 mg/dL 5-40 [facility] Serum or plasma low density lipoprotein (LDL) cholesterol measurement (mass/volume)Ordered By: Wale Cadena on 03-20-2023 Cholesterol in LDL [Mass/Vol] 86 mg/dL 0-130 [facility] Whole blood hemoglobin A1c/t otal hemoglobin ratio (mass fraction)Ordered By: Wale Cadena on 03-20-2023 HbA1c (Bld) [Mass fraction] 5.3 % 3.8-5.6 [facility] Comment on above: Normal < 5.7 % Predi abetic 5.7 - 6.4 % Diabetic >or= 6.5 % Please note range changes. Culture, urineOrdered By: Marcio Smith on 03-06-2023 Bacteria identified Cx Nom (U) Presumptive E. coli [facility] No Panel InformationOrdered By: Wale Cadena on 01-25-2023 Valproic Acid (Depakene) Level 58 ug/mL 50-100 [facility] Basophil percentageOrdered B y: Wale Cadena on 01-22-2023 Chloride [Moles/Vol] 105 mmol/L 98-107 [facility] Glucose [Mass/Vol] 82 mg/dL 74-106 [facility] Potassium [Moles/Vol] 4.5 mmol/L 3.5-5.1 [facility] Comment on above: Slight Hemolysis, Re sult may be falsely increased. Sodium [Moles/Vol] 138 mmol/L 136-145 [facility] WBC (Bld) [#/Vol] 8.6 10*3/uL 4.4-11.0 [facility] Blood erythrocytes count (nu mber/volume)Ordered By: Wale Cadena on 01-22-2023 RBC (Bld) [#/Vol] 4.36 10*6/uL 4.2-5.4 [facility] Blood hemoglobin measurement (mass/volume)Ordered By: Wale Cadena on 01-22-2023 Hemoglobin (Bld) [Mass/Vol] 12.9 g/dL 12.0-15.0 [facility] Blood platelet mean volumeOr dered By: Wale Cadena on 01-22-2023 Platelet mean volume (Bld) [Entitic vol] 9.6 fL 6.2-12.0 [facility] Determination of erythrocyte mean corpuscular volume (MCV)Ordered By: Wale Cadena on 01-22-2023 MCV (RBC) [Entitic vol] 94.0 fL 81-99 [facility] Hematocrit Auto (Bld) [Volum e fraction]Ordered By: Wale Cadena on 01-22-2023 Hematocrit (Bld) [Volume fraction] 41.0 % 37-47 [facility] Laboratory - Chemistry and C hemistry - challengeOrdered By: Wale Cadena on 01-22-2023 CO2 [Moles/Vol] 27.0 mmol/L 21.0-32.0 [facility] Urea nitrogen/Creatinine [Mass ratio] 39.3 mg/mg 10-20 [facility] Laboratory - Hematology and Cell countsOrdered By: Wale Cadena on 01-22-2023 Erythrocyte distribution width (RBC) [Entitic vol] 54.7 fL 35.1-43.9 [facility] Erythrocyte distribution width (RBC) [Ratio] 15.9 % 11.6-14.6 [facility] MCH (RBC) [Entitic mass] 29.6 pg 27.0-32.0 [facility] MCHC Auto (RBC) [Mass/Vol]Or dered By: Wale Cadena on 01-22-2023 MCHC (RBC) [Mass/Vol] 31.5 g/dL 32-36 [facility] No Panel InformationOrdered By: Wale Cadena on 01-22-2023 Estimated GFR (MDRD) Amer 103 mL/min >60 [facility] Comment on above: GFR Calc Estimated GFR (MDRD) Non-Af Amer 85 mL/min >60 [facility] Comment on above: Non- GFR Calc Platelets bldOrdered By: Meggan Cadena on 01-22-2023 Platelets (Bld) [#/Vol] 341 10*3/uL 150-450 [facility] Serum or plasma calcium love urement (mass/volume)Ordered By: Wale Cadena on 01-22-2023 Calcium [Mass/Vol] 9.6 mg/dL 8.5-10.1 [facility] Serum or plasma creatinine m easurement (mass/volume)Ordered By: Wale Cadena on 01-22-2023 Creatinine [Mass/Vol] 0.71 mg/dL 0.55-1.02 [facility] Comment on above: The validity of the calculated GFR & GFRAA in patients over 70 years has not been determined. Clinical correlation is essential. Serum or plasma urea nitroge n measurement (mass/volume)Ordered By: Wale Cadena on 01-22-2023 Urea nitrogen [Mass/Vol] 28 mg/dL 7-18 [facility] Thin prep Papanicolaou smear with manual screeningOrdered By: Wale Cadena on 01-22-2023 Thin prep Papanicolaou smear with manual screening 6 5-15 [facility] No Panel InformationOrdered By: Wale Cadena on 12-18-2022 Thyroid Stimulating Hormone (TSH) 4.73 uIU/mL 0.358-3.74 [facility] Valproic Acid (Depakene) Level 50 ug/mL 50-100 [facility] No Panel InformationOrdered By: Wale Cadena on 10-24-2022 Valproic Acid (Depakene) Level 33 ug/mL 50-100 [facility] Basophil percentageOrdered B y: Wale Cadena on 10-22-2022 Cholesterol [Mass/Vol] 222 mg/dL <200 [facility] Comment on above: <200 mg/dL Desirable 200-240 mg/dL Borderline >240 mg/dL High Risk Triglyceride [Mass/Vol] 176 mg/dL <199 [facility] Comment on above: The drugs N-Acetylcy steine and Metamizole may falsely depress this assay.Serum Triglycerides Reference Interval Normal <150 mg/dL Borderline high 150 - 199 mg/dL High 200 - 499 mg/dL Very High > or = 500 mg/dL Serum or plasma cholesterol in HDL measurement (mass/volume)Ordered By: Wale Cadena on 10-22-2022 Cholesterol in HDL [Mass/Vol] 50 mg/dL >40 [facility] Comment on above: The drugs N-Acetylcy steine and Metamizole may falsely depress this assay. Reference Range HDL <40 mg/dL Low HDL Cholesterol HDL >or= 60 mg/dL High HDL Cholesterol Serum or plasma cholesterol in VLDL measurement (mass/volume)Ordered By: Wale Cadena on 10-22-2022 Cholesterol in VLDL [Mass/Vol] 35 mg/dL 5-40 [facility] Serum or plasma low density lipoprotein (LDL) cholesterol measurement (mass/volume)Ordered By: Wale Cadena on 10-22-2022 Cholesterol in LDL [Mass/Vol] 137 mg/dL 0-130 [facility] No Panel InformationOrdered By: Wale Cadena on 09-24-2022 Valproic Acid (Depakene) Level 45 ug/mL 50-100 [facility] Basophil percentageOrdered B y: Wale Cadena on 09-20-2022 Cholesterol [Mass/Vol] 241 mg/dL <200 [facility] Comment on above: <200 mg/dL Desirable 200-240 mg/dL Borderline >240 mg/dL High Risk Triglyceride [Mass/Vol] 395 mg/dL <199 [facility] Comment on above: The drugs N-Acetylcy steine and Metamizole may falsely depress this assay.Serum Triglycerides Reference Interval Normal <150 mg/dL Borderline high 150 - 199 mg/dL High 200 - 499 mg/dL Very High > or = 500 mg/dL No Panel InformationOrdered By: Wale Cadena on 09-20-2022 Valproic Acid (Depakene) Level 37 ug/mL 50-100 [facility] Serum or plasma cholesterol in HDL measurement (mass/volume)Ordered By: Wale Cadena on 09-20-2022 Cholesterol in HDL [Mass/Vol] 42 mg/dL >40 [facility] Comment on above: The drugs N-Acetylcy steine and Metamizole may falsely depress this assay. Reference Range HDL <40 mg/dL Low HDL Cholesterol HDL >or= 60 mg/dL High HDL Cholesterol Serum or plasma cholesterol in VLDL measurement (mass/volume)Ordered By: Wale Cadena on 09-20-2022 Cholesterol in VLDL [Mass/Vol] 79 mg/dL 5-40 [facility] Serum or plasma low density lipoprotein (LDL) cholesterol measurement (mass/volume)Ordered By: Wale Cadena on 09-20-2022 Cholesterol in LDL [Mass/Vol] 120 mg/dL 0-130 [facility] Whole blood hemoglobin A1c/t otal hemoglobin ratio (mass fraction)Ordered By: Wale Cadena on 09-20-2022 HbA1c (Bld) [Mass fraction] 5.3 % 3.8-5.6 [facility] Comment on above: Normal < 5.7 % Predi abetic 5.7 - 6.4 % Diabetic >or= 6.5 % Please note range changes. Basophil percentageOrdered B y: Wale Cadena on 07-27-2022 Chloride [Moles/Vol] 106 mmol/L 98-107 [facility] Glucose [Mass/Vol] 91 mg/dL 74-106 [facility] Potassium [Moles/Vol] 4.1 mmol/L 3.5-5.1 [facility] Sodium [Moles/Vol] 139 mmol/L 136-145 [facility] WBC (Bld) [#/Vol] 9.6 10*3/uL 4.4-11.0 [facility] Blood erythrocytes count (nu mber/volume)Ordered By: Wale Cadena on 07-27-2022 RBC (Bld) [#/Vol] 3.85 10*6/uL 4.2-5.4 [facility] Blood hemoglobin measurement (mass/volume)Ordered By: Wale Cadena on 07-27-2022 Hemoglobin (Bld) [Mass/Vol] 11.6 g/dL 12.0-15.0 [facility] Blood platelet mean volumeOr dered By: Wale Cadena on 07-27-2022 Platelet mean volume (Bld) [Entitic vol] 10.9 fL 6.2-12.0 [facility] Determination of erythrocyte mean corpuscular volume (MCV)Ordered By: Wale Cadena on 07-27-2022 MCV (RBC) [Entitic vol] 95.1 fL 81-99 [facility] Hematocrit Auto (Bld) [Volum e fraction]Ordered By: Wale Cadena on 07-27-2022 Hematocrit (Bld) [Volume fraction] 36.6 % 37-47 [facility] Laboratory - Chemistry and C hemistry - challengeOrdered By: Wale Cadena on 07-27-2022 CO2 [Moles/Vol] 29.0 mmol/L 21.0-32.0 [facility] Urea nitrogen/Creatinine [Mass ratio] 31.3 mg/mg 10-20 [facility] Laboratory - Hematology and Cell countsOrdered By: Wale Cadena on 07-27-2022 Erythrocyte distribution width (RBC) [Entitic vol] 51.2 fL 35.1-43.9 [facility] Erythrocyte distribution width (RBC) [Ratio] 14.7 % 11.6-14.6 [facility] MCH (RBC) [Entitic mass] 30.1 pg 27.0-32.0 [facility] ([facility]) [Mass/Vol]Or dered By: Wale Cadena on 07-27-2022 MCHC (RBC) [Mass/Vol] 31.7 g/dL 32-36 [facility] No Panel InformationOrdered By: Wale Cadena on 07-27-2022 Estimated GFR (MDRD) Amer 100 mL/min >60 [facility] Comment on above: GFR Calc Estimated GFR (MDRD) Non-Af Amer 83 mL/min >60 [facility] Comment on above: Non- GFR Calc Valproic Acid (Depakene) Level 44 ug/mL 50-100 [facility] Platelets bldOrdered By: Meggan Cadena on 07-27-2022 Platelets (Bld) [#/Vol] 305 10*3/uL 150-450 [facility] Serum or plasma calcium love urement (mass/volume)Ordered By: Wale Cadena on 07-27-2022 Calcium [Mass/Vol] 9.1 mg/dL 8.5-10.1 [facility] Serum or plasma creatinine m easurement (mass/volume)Ordered By: Wale Cadena on 07-27-2022 Creatinine [Mass/Vol] 0.73 mg/dL 0.55-1.02 [facility] Comment on above: The validity of the calculated GFR & GFRAA in patients over 70 years has not been determined. Clinical correlation is essential. Serum or plasma urea nitroge n measurement (mass/volume)Ordered By: Wale Cadena on 07-27-2022 Urea nitrogen [Mass/Vol] 23 mg/dL 7-18 [facility] Thin prep Papanicolaou smear with manual screeningOrdered By: Wale Cadena on 07-27-2022 Thin prep Papanicolaou smear with manual screening 4 5-15 [facility] No Panel InformationOrdered By: Wale Cadena on 07-26-2022 Valproic Acid (Depakene) Level 44 ug/mL 50-100 [facility] Basophil percentageOrdered B y: Wale Cadena on 04-27-2022 Bilirubin [Mass/Vol] 0.20 mg/dL 0.20-1.[address] [facility] Comment on above: For patients on eltr ombopag therapy, use of Dimension [place] TBIL is not recommended. Chloride [Moles/Vol] 103 mmol/L 98-107 [facility] Glucose [Mass/Vol] 79 mg/dL 74-106 [facility] Potassium [Moles/Vol] 3.9 mmol/L 3.5-5.1 [facility] Protein [Mass/Vol] 8.0 g/dL 6.4-8.2 [facility] Sodium [Moles/Vol] 137 mmol/L 136-145 [facility] Laboratory - Chemistry and C hemistry - challengeOrdered By: Wale Cadena on 04-27-2022 ALP [Catalytic activity/Vol] 68 U/L 45-117 [facility] ALT [Catalytic activity/Vol] 22 U/L 13-56 [facility] CO2 [Moles/Vol] 25.0 mmol/L 21.0-32.0 [facility] Globulin (S) [Mass/Vol] 5.1 g/dL 2.2-4.2 [facility] Urea nitrogen/Creatinine [Mass ratio] 21.3 mg/mg 10-20 [facility] No Panel InformationOrdered By: Wale Cadena on 04-27-2022 Estimated GFR (MDRD) Amer 97 mL/min >60 [facility] Comment on above: GFR Calc Estimated GFR (MDRD) Non-Af Amer 80 mL/min >60 [facility] Comment on above: Non- GFR Calc Serum or plasma albumin love urement (mass/volume)Ordered By: Wale Cadena on 04-27-2022 Albumin [Mass/Vol] 2.9 g/dL 3.2-5.0 [facility] Serum or plasma albumin/glob ulin mass ratioOrdered By: Wale Cadena on 04-27-2022 Albumin/Globulin [Mass ratio] 0.6 {ratio} 0.9-2.4 [facility] Serum or plasma calcium love urement (mass/volume)Ordered By: Wale Cadena on 04-27-2022 Calcium [Mass/Vol] 9.2 mg/dL 8.5-10.1 [facility] Serum or plasma creatinine m easurement (mass/volume)Ordered By: Wale Cadena on 04-27-2022 Creatinine [Mass/Vol] 0.75 mg/dL 0.55-1.02 [facility] Comment on above: The validity of the calculated GFR & GFRAA in patients over 70 years has not been determined. Clinical correlation is essential. Serum or plasma urea nitroge n measurement (mass/volume)Ordered By: Wale Cadena on 04-27-2022 Urea nitrogen [Mass/Vol] 16 mg/dL 7-18 [facility] Thin prep Papanicolaou smear with manual screeningOrdered By: Wale Cadena on 04-27-2022 Thin prep Papanicolaou smear with manual screening 17 U/L 15-37 [facility] Thin prep Papanicolaou smear with manual screening 9 5-15 [facility] Basophil percentageOrdered B y: Wale Cadena on 04-26-2022 WBC (Bld) [#/Vol] 8.9 10*3/uL 4.4-11.0 [facility] Blood erythrocytes count (nu mber/volume)Ordered By: Wale Cadena on 04-26-2022 RBC (Bld) [#/Vol] 4.00 10*6/uL 4.2-5.4 [facility] Blood hemoglobin measurement (mass/volume)Ordered By: Wale Cadena on 04-26-2022 Hemoglobin (Bld) [Mass/Vol] 12.0 g/dL 12.0-15.0 [facility] Blood platelet mean volumeOr dered By: Wale Cadena on 04-26-2022 Platelet mean volume (Bld) [Entitic vol] 11.2 fL 6.2-12.0 [facility] Determination of erythrocyte mean corpuscular volume (MCV)Ordered By: Wale Cadena on 04-26-2022 MCV (RBC) [Entitic vol] 95.0 fL 81-99 [facility] Hematocrit Auto (Bld) [Volum e fraction]Ordered By: Wale Cadena on 04-26-2022 Hematocrit (Bld) [Volume fraction] 38.0 % 37-47 [facility] Laboratory - Hematology and Cell countsOrdered By: Wale Cadena on 04-26-2022 Erythrocyte distribution width (RBC) [Entitic vol] 51.7 fL 35.1-43.9 [facility] Erythrocyte distribution width (RBC) [Ratio] 14.9 % 11.6-14.6 [facility] MCH (RBC) [Entitic mass] 30.0 pg 27.0-32.0 [facility] MCHC Auto (RBC) [Mass/Vol]Or dered By: Wale Cadena on 04-26-2022 MCHC (RBC) [Mass/Vol] 31.6 g/dL 32-36 [facility] No Panel InformationOrdered By: Wale Cadena on 04-26-2022 Valproic Acid (Depakene) Level 63 ug/mL 50-100 [facility] Platelets bldOrdered By: Meggan Cadena on 04-26-2022 Platelets (Bld) [#/Vol] 379 10*3/uL 150-450 [facility] Basophil percentageOrdered B y: Wale Cadena on 04-23-2022 Chloride [Moles/Vol] 105 mmol/L 98-107 [facility] Cholesterol [Mass/Vol] 175 mg/dL <200 [facility] Comment on above: <200 mg/dL Desirable 200-240 mg/dL Borderline >240 mg/dL High Risk Glucose [Mass/Vol] 77 mg/dL 74-106 [facility] Potassium [Moles/Vol] 3.7 mmol/L 3.5-5.1 [facility] Comment on above: Slight Hemolysis, Re sult may be falsely increased. Sodium [Moles/Vol] 141 mmol/L 136-145 [facility] Triglyceride [Mass/Vol] 179 mg/dL <199 [facility] Comment on above: The drugs N-Acetylcy steine and Metamizole may falsely depress this assay.Serum Triglycerides Reference Interval Normal <150 mg/dL Borderline high 150 - 199 mg/dL High 200 - 499 mg/dL Very High > or = 500 mg/dL WBC (Bld) [#/Vol] 11.2 10*3/uL 4.4-11.0 [facility] Blood erythrocytes count (nu mber/volume)Ordered By: Wale Cadena on 04-23-2022 RBC (Bld) [#/Vol] 3.72 10*6/uL 4.2-5.4 [facility] Blood hemoglobin measurement (mass/volume)Ordered By: Wale Cadena on 04-23-2022 Hemoglobin (Bld) [Mass/Vol] 11.3 g/dL 12.0-15.0 [facility] Blood platelet mean volumeOr dered By: Wale Cadena on 04-23-2022 Platelet mean volume (Bld) [Entitic vol] 10.5 fL 6.2-12.0 [facility] Determination of erythrocyte mean corpuscular volume (MCV)Ordered By: Wale Cadena on 04-23-2022 MCV (RBC) [Entitic vol] 96.5 fL 81-99 [facility] Hematocrit Auto (Bld) [Volum e fraction]Ordered By: Wale Cadena on 04-23-2022 Hematocrit (Bld) [Volume fraction] 35.9 % 37-47 [facility] Laboratory - Chemistry and C hemistry - challengeOrdered By: Wale Cadena on 04-23-2022 CO2 [Moles/Vol] 28.0 mmol/L 21.0-32.0 [facility] Urea nitrogen/Creatinine [Mass ratio] 15.3 mg/mg 10-20 [facility] Laboratory - Hematology and Cell countsOrdered By: Wale Cadena on 04-23-2022 Erythrocyte distribution width (RBC) [Entitic vol] 55.3 fL 35.1-43.9 [facility] Erythrocyte distribution width (RBC) [Ratio] 15.7 % 11.6-14.6 [facility] MCH (RBC) [Entitic mass] 30.4 pg 27.0-32.0 [facility] MCHC Auto (RBC) [Mass/Vol]Or dered By: Wale Cadena on 04-23-2022 MCHC (RBC) [Mass/Vol] 31.5 g/dL 32-36 [facility] No Panel InformationOrdered By: Wale Cadena on 04-23-2022 Estimated GFR (MDRD) Amer 103 mL/min >60 [facility] Comment on above: GFR Calc Estimated GFR (MDRD) Non-Af Amer 85 mL/min >60 [facility] Comment on above: Non- GFR Calc Platelets bldOrdered By: Meggan Cadena on 04-23-2022 Platelets (Bld) [#/Vol] 408 10*3/uL 150-450 [facility] Serum or plasma calcium love urement (mass/volume)Ordered By: Wale Cadena on 04-23-2022 Calcium [Mass/Vol] 9.1 mg/dL 8.5-10.1 [facility] Serum or plasma cholesterol in HDL measurement (mass/volume)Ordered By: Wale Cadena on 04-23-2022 Cholesterol in HDL [Mass/Vol] 37 mg/dL >40 [facility] Comment on above: The drugs N-Acetylcy steine and Metamizole may falsely depress this assay. Reference Range HDL <40 mg/dL Low HDL Cholesterol HDL >or= 60 mg/dL High HDL Cholesterol Serum or plasma cholesterol in VLDL measurement (mass/volume)Ordered By: Wale Cadena on 04-23-2022 Cholesterol in VLDL [Mass/Vol] 36 mg/dL 5-40 [facility] Serum or plasma creatinine m easurement (mass/volume)Ordered By: Wale Cadena on 04-23-2022 Creatinine [Mass/Vol] 0.72 mg/dL 0.55-1.02 [facility] Comment on above: The validity of the calculated GFR & GFRAA in patients over 70 years has not been determined. Clinical correlation is essential. Serum or plasma low density lipoprotein (LDL) cholesterol measurement (mass/volume)Ordered By: Wale Cadena on 04-23-2022 Cholesterol in LDL [Mass/Vol] 102 mg/dL 0-130 [facility] Serum or plasma urea nitroge n measurement (mass/volume)Ordered By: Wale Cadena on 04-23-2022 Urea nitrogen [Mass/Vol] 11 mg/dL 7-18 [facility] Thin prep Papanicolaou smear with manual screeningOrdered By: Wale Cadena on 04-23-2022 Thin prep Papanicolaou smear with manual screening 8 5-15 [facility] Basophil percentageon 2021 Chloride [Moles/Vol] 106 mmol/L 98-107 [facility] Work Phone: Glucose [Mass/Vol] 100 mg/dL 74-106 [facility] Work Phone: Comment on above: Fasting Glucose resu lt from 100 to 125 mg/dL suggests IMPAIRED HOMEOSTASIS per A.D.A. criteria. Potassium [Moles/Vol] 3.4 mmol/L 3.5-5.1 [facility]: Sodium [Moles/Vol] 142 mmol/L 136-145 [facility]: WBC (Bld) [#/Vol] 14.5 10*3/uL 4.4-11.0 [facility] Work Phone: Blood erythrocytes count (nu mber/volume)on 04-19-2022 RBC (Bld) [#/Vol] 4.10 10*6/uL 4.2-5.4 [facility] Work Phone: Blood hemoglobin measurement (mass/volume)on 04-19-2022 Hemoglobin (Bld) [Mass/Vol] 12.3 g/dL 12.0-15.0 [facility] Work Phone: Blood platelet mean volumeon 04-19-2022 Platelet mean volume (Bld) [Entitic vol] 10.2 fL 6.2-12.0 [facility] Work Phone: Determination of erythrocyte mean corpuscular volume (MCV)on 04-19-2022 MCV (RBC) [Entitic vol] 96.1 fL 81-99 [facility] Work Phone: Hematocrit Auto (Bld) [Volum e fraction]on 04-19-2022 Hematocrit (Bld) [Volume fraction] 39.4 % 37-47 [facility] Work Phone: Laboratory - Chemistry and C hemistry - challengeon 04-19-2022 CO2 [Moles/Vol] 28.0 mmol/L 21.0-32.0 [facility] Work Phone: Urea nitrogen/Creatinine [Mass ratio] 14.6 mg/mg 10-20 [facility] Work Phone: Laboratory - Hematology and Cell countson 04-19-2022 Erythrocyte distribution width (RBC) [Entitic vol] 55.3 fL 35.1-43.9 [facility] Work Phone: Erythrocyte distribution width (RBC) [Ratio] 16.0 % 11.6-14.6 [facility] Work Phone: MCH (RBC) [Entitic mass] 30.0 pg 27.0-32.0 [facility] Work Phone: MCHC Auto (RBC) [Mass/Vol]on 04-19-2022 MCHC (RBC) [Mass/Vol] 31.2 g/dL 32-36 [facility] Work Phone: No Panel Informationon 04-19 Estimated GFR (MDRD) Amer 88 mL/min >60 [facility] Work Phone: Comment on above: GFR Calc Estimated GFR (MDRD) Non-Af Amer 73 mL/min >60 [facility] Work Phone: Comment on above: Non- GFR Calc Platelets bldon 04-19-2022 Platelets (Bld) [#/Vol] 557 10*3/uL 150-450 [facility] Work Phone: Serum or plasma calcium love urement (mass/volume)on 04-19-2022 Calcium [Mass/Vol] 9.2 mg/dL 8.5-10.1 [facility] Work Phone: Serum or plasma creatinine m easurement (mass/volume)on 04-19-2022 Creatinine [Mass/Vol] 0.82 mg/dL 0.55-1.02 [facility] Work Phone: Comment on above: The validity of the calculated GFR & GFRAA in patients over 70 years has not been determined. Clinical correlation is essential. Serum or plasma urea nitroge n measurement (mass/volume)on 04-19-2022 Urea nitrogen [Mass/Vol] 12 mg/dL 7-18 [facility] Work Phone: Thin prep Papanicolaou smear with manual screeningon 04-19-2022 Thin prep Papanicolaou smear with manual screening 8 - [facility] Work Phone: Basic Metabolic Panelon 04-05 Anion gap [Moles/Vol] 5 mmol/L Normal 3-13 [facility] Comment on above: Performed By: #### B MP3M, MG3, HEMDF #### [facility] [address] [place] [address] Calcium [Mass/Vol] 9.3 mg/dL Normal 8.4-10.4 [facility] Comment on above: Performed By: #### B MP3M, MG3, HEMDF #### [facility] [address] [place] [address] CO2 [Moles/Vol] 30 mmol/L Normal 22-30 [facility] Comment on above: Performed By: #### B MP3M, MG3, HEMDF #### [facility] [address] [place] [address] Glucose [Mass/Vol] 87 mg/dL Normal 70-100 [facility] Comment on above: Performed By: #### B MP3M, MG3, HEMDF #### [facility] [address] [place] [address] Urea nitrogen [Mass/Vol] 12 mg/dL Normal 9-20 [facility] Comment on above: Performed By: #### B MP3M, MG3, HEMDF #### [facility] [address] [place] [address] Creatinine [Mass/Vol] 0.67 mg/dL Normal 0.52-1.25 [facility] Comment on above: Performed By: #### B MP3M, MG3, HEMDF #### [facility] [address] [place] [address] GFR/1.73 sq M.predicted among blacks MDRD (S/P/Bld) [Vol rate/Area] mL/min/{1.73_m2} Normal >60 [facility] Comment on above: Performed By: #### B MP3M, MG3, HEMDF #### [facility] [address] [place] [address] GFR/1.73 sq M.predicted among non-blacks MDRD (S/P/Bld) [Vol rate/Area] 87.3 mL/min/{1.73_m2} Normal >60 [facility] Comment on above: Result Comment: KDIG O guidelines provide the following GFR categories: Stage GFR(ml/min/1.73 m2) Terms G1 >=90 Normal or high G2 60-89 Mildly decreased* G3a 45-59 Mildly to moderately decreased G3b 30-44 Moderately to severely decreased G4 15-29 Severely decreased G5 <15 Kidney failure *Relative to young adult level. In the absence of evidence of kidney damage, neither GFR category G1 nor G2 fulfill the criteria for CKD. The CKD-EPI equation is validated in individuals 18 years of age and older. Currently the best equation for estimating glomerular filtration rate (GFR) from serum creatinine in children is the Bedside Moss equation. It is less accurate in patients with extremes of muscle mass, restriction of dietary protein, ingestion of creatine, extra-renal metabolism of creatinine, or treatment with medications that affect renal tubular creatinine secretion. Performed By: #### B MP3M, MG3, HEMDF #### [facility] [address] [place] [address] Potassium [Moles/Vol] 3.5 mmol/L Normal 3.5-5.1 [facility] Comment on above: Performed By: #### Shorty MP3M, MG3, HEMDF #### [facility] [address] [place] [address] Sodium [Moles/Vol] 143 mmol/L Normal 135-145 [facility] Comment on above: Performed By: #### B MP3M, MG3, HEMDF #### [facility] [address] [place] [address] Chloride [Moles/Vol] 108 mmol/L High 98-107 [facility] Comment on above: Performed By: #### B MP3M, MG3, HEMDF #### [facility] [address] [place] [address] Basic Metabolic Panel w/ Ref taiwo to MGon 04-18-2022 Anion gap [Moles/Vol] 5 mmol/L 3 - 13 mmol/L [facility] Work Phone: Calcium [Mass/Vol] 9.3 mg/dL 8.4 - 10. 4 mg/dL [facility] Work Phone: Chloride [Moles/Vol] 108 mmol/L High 98 - 10 7 mmol/L [facility] Work Phone: CO2 [Moles/Vol] 30 mmol/L 22 - 30 mmol/L [facility] Work Phone: Creatinine [Mass/Vol] 0.67 mg/dL 0.52 - 1.25 mg/dL [facility] Work Phone: eGFR mL/min 60 - P INF mL/min [facility] Work Phone: EGFR IF NonAfrican Estonian 87.3 mL/min 60 - PINF mL/min [facility] Work Phone: Comment on above: KDIGO guidelines pro vide the following GFR categories: Stage GFR(ml/min/1.73 m2) Terms G1 >=90 Normal or high G2 60-89 Mildly decreased* G3a 45-59 Mildly to moderately decreased G3b 30-44 Moderately to severely decreased G4 15-29 Severely decreased G5 <15 Kidney failure *Relative to young adult level. In the absence of evidence of kidney damage, neither GFR category G1 nor G2 fulfill the criteria for CKD. The CKD-EPI equation is validated in individuals 18 years of age and older. Currently the best equation for estimating glomerular filtration rate (GFR) from serum creatinine in children is the Bedside Moss equation. It is less accurate in patients with extremes of muscle mass, restriction of dietary protein, ingestion of creatine, extra-renal metabolism of creatinine, or treatment with medications that affect renal tubular creatinine secretion. Glucose [Mass/Vol] 87 mg/dL 70 - 100 mg/dL [facility] Work Phone: Interpretation and review of laboratory results Abnormal [facility] Work Phone: Potassium [Moles/Vol] 3.5 mmol/L 3.5 - 5.1 mmol/L [facility] Work Phone: Sodium [Moles/Vol] 143 mmol/L 135 - 145 mmol/L [facility] Work Phone: Urea nitrogen (BldV) [Mass/Vol] 12 mg/dL 9 - 20 mg/dL [facility] Work Phone: Test Performed by [facility], [address] [place], [place], [place] [id number] [place] [address] LAB [facility] Work Phone: CBC with Auto Differentialon 04-18-2022 Absolute Baso # 0.1 10*3/uL 0 - 0.2 10*3/uL [facility] Work Phone: [phone] Absolute Neut # 9.0 10*3/uL High 1.8 - 7 10*3/uL [facility] Work Phone: [phone] Basophils/100 WBC (Bld) 1.0 % 0 - 2 % S [facility] Work Phone: [phone] Eosinophils (Bld) [#/Vol] 0.2 10*3/uL 0 - 0.5 10*3/uL [facility] Work Phone: [phone] Eosinophils/100 WBC (Bld) 1.7 % 1 - 6 % [facility] Work Phone: [phone] Granulocytes/100 WBC (Bld) 72.6 % 40 - 80 % [facility] Work Phone: Hematocrit (Bld) [Volume fraction] 35.8 % 35 - 47 % [facility] Work Phone: Hemoglobin (Bld) [Mass/Vol] 12.0 g/dL 11.7 - 16 g/dL [facility] Work Phone: [phone] Interpretation and review of laboratory results Abnormal [facility] Work Phone: [phone] Lymphocytes (Bld) [#/Vol] 2.5 10*3/uL 1 - 4.3 10*3/uL [facility] Work Phone: [phone] Lymphocytes/100 WBC (Bld) 20.1 % 20 - 40 % [facility] Work Phone: MCH (RBC) [Entitic mass] 30.1 pg 26 - 34 pg [facility] Work Phone: MCHC (RBC) [Mass/Vol] 33.4 % 32 - 36 % [facility] Work Phone: MCV (RBC) [Entitic vol] 90.2 fL 79 - 98 fL S [facility] Work Phone: Monocytes (Bld) [#/Vol] 0.6 10*3/uL 0 - 0.8 10*3/uL [facility] Work Phone: Monocytes/100 WBC (Bld) 4.6 % 2 - 10 % S [facility] Work Phone: Platelet distribution width (Bld) [Ratio] 15.5 % High 11.5 - 14.5 % [facility] Work Phone: Platelet mean volume (Bld) [Entitic vol] 7.8 fL 7.4 - 12.4 fL [facility] Work Phone: Comment on above: MPV is a calculated measurement using platelet volume ratio. Platelets (Bld) [#/Vol] 500 10*3/uL High 140 - 440 10*3/uL [facility] Work Phone: RBC (Bld) [#/Vol] 3.97 10*6/uL 3.8 - 5.2 10*6/uL [facility] Work Phone: WBC (Bld) [#/Vol] 12.3 10*3/uL High 3.6 - 10.7 10*3/uL [facility] Work Phone: Test Performed by [employer], [address] [place], [place] [address] [facility] LAB [facility] Work Phone: Hemogram w/ Autodiffon 04-18 Abs Baso Cnt 0.1 10*3/uL Normal 0.0-0.2 [facility] Comment on above: Performed By: #### B MP3M, MG3, HEMDF #### [employer] [address] [place] [address] Abs Neutrophile Cnt 9.0 10*3/uL High 1.8-7.0 [facility] Comment on above: Performed By: #### B MP3M, MG3, HEMDF #### [facility] [address] [place] [address] Basophils/100 WBC (Bld) 1.0 % Normal 0.0-2.0 [facility] Comment on above: Performed By: #### B MP3M, MG3, HEMDF #### [facility] [address] [place] [address] Eosinophils (Bld) [#/Vol] 0.2 10*3/uL Normal 0.0-0.5 [facility] Comment on above: Performed By: #### B MP3M, MG3, HEMDF #### [facility] [address] [place] [address] Eosinophils/100 WBC (Bld) 1.7 % Normal 1.0-6.0 [facility] Comment on above: Performed By: #### B MP3M, MG3, HEMDF #### [facility] [address] [place] [address] Erythrocyte distribution width (RBC) [Ratio] 15.5 % High 11.5-14.5 [facility] Comment on above: Performed By: #### B MP3M, MG3, HEMDF #### [facility] [address] [place] [address] Granulocytes/100 WBC (Bld) 72.6 % Normal 40.0-80.0 [facility] Comment on above: Performed By: #### B MP3M, MG3, HEMDF #### [facility] [address] [place] [address] Hematocrit (Bld) [Volume fraction] 35.8 % Normal 35.0-47.0 [facility] Comment on above: Performed By: #### B MP3M, MG3, HEMDF #### [facility] [address] [place] [address] Hemoglobin (Bld) [Mass/Vol] 12.0 g/dL Normal 11.7-16.0 [facility] Comment on above: Performed By: #### B MP3M, MG3, HEMDF #### [facility] [address] [place] [address] Lymphocytes (Bld) [#/Vol] 2.5 10*3/uL Normal 1.0-4.3 [facility] Comment on above: Performed By: #### B MP3M, MG3, HEMDF #### [facility] [address] [place] [address] Lymphocytes/100 WBC (Bld) 20.1 % Normal 20.0-40.0 [facility] Comment on above: Performed By: #### B MP3M, MG3, HEMDF #### [facility] [address] [place] [address] MCH (RBC) [Entitic mass] 30.1 pg Normal 26.0-34.0 [facility] Comment on above: Performed By: #### B MP3M, MG3, HEMDF #### [facility] [address] [place] [address] MCHC 33.4 % Normal 32.0-36.0 [facility] Comment on above: Performed By: #### B MP3M, MG3, HEMDF #### [facility] [address] [place] [address] MCV (RBC) [Entitic vol] 90.2 fL Normal 79.0-98.0 [facility] Comment on above: Performed By: #### B MP3M, MG3, HEMDF #### [facility] [address] [place] [address] Monocytes (Bld) [#/Vol] 0.6 10*3/uL Normal 0.0-0.8 [facility] Comment on above: Performed By: #### B MP3M, MG3, HEMDF #### [facility] [address] [place] [address] Monocytes/100 WBC (Bld) 4.6 % Normal 2.0-10.0 [facility] Comment on above: Performed By: #### B MP3M, MG3, HEMDF #### [facility] [address] [place] [address] Platelet mean volume (Bld) [Entitic vol] 7.8 fL Normal 7.4-12.4 [facility] Comment on above: Result Comment: MPV is a calculated measurement using platelet volume ratio. Performed By: #### B MP3M, MG3, HEMDF #### [facility] [address] [place] [address] Platelets (Bld) [#/Vol] 500 10*3/uL High 140-440 [facility] Comment on above: Performed By: #### B MP3M, MG3, HEMDF #### [facility] [address] [place] [address] RBC (Bld) [#/Vol] 3.97 10*6/uL Normal 3.80-5.20 [facility] Comment on above: Performed By: #### B MP3M, MG3, HEMDF #### [facility] [address] [place] [address] WBC (Bld) [#/Vol] 12.3 10*3/uL High 3.6-10.7 [facility] Comment on above: Performed By: #### B MP3M, MG3, HEMDF #### [facility] [address] [place] [address] Magnesiumon 04-18-2022 Magnesium [Mass/Vol] 2.1 mg/dL Normal 1.6-2.3 [facility] Comment on above: Performed By: #### B MP3M, MG3, HEMDF #### [facility] [address] [place] [address] Magnesium [Mass/Vol] 2.1 mg/dL 1.6 - 2 .3 mg/dL [facility] Work Phone: Test Performed by [facility], [facility] [address] [place], [place] [id number] [place] [address] LAB [facility] Work Phone: Basic Metabolic Panelon 04-05 Calcium [Mass/Vol] 8.7 mg/dL Normal 8.4-10.4 [facility] Comment on above: Performed By: #### M DIFF, MG3, HEMDF, BMP3M #### [facility] [address] [place] [address] Anion gap [Moles/Vol] 4 mmol/L Normal 3-13 [facility] Comment on above: Performed By: #### M DIFF, MG3, HEMDF, BMP3M #### [facility] [address] [place] [address] CO2 [Moles/Vol] 30 mmol/L Normal 22-30 [facility] Comment on above: Performed By: #### M DIFF, MG3, HEMDF, BMP3M #### [facility] [address] [place] [address] Creatinine [Mass/Vol] 0.63 mg/dL Normal 0.52-1.25 [facility] Comment on above: Performed By: #### M DIFF, MG3, HEMDF, BMP3M #### [facility] [address] [place] [address] GFR/1.73 sq M.predicted among blacks MDRD (S/P/Bld) [Vol rate/Area] mL/min/{1.73_m2} Normal >60 [facility] Comment on above: Performed By: #### M DIFF, MG3, HEMDF, BMP3M #### [facility] [address] [place] [address] GFR/1.73 sq M.predicted among non-blacks MDRD (S/P/Bld) [Vol rate/Area] 89.1 mL/min/{1.73_m2} Normal >60 [facility] Comment on above: Result Comment: KDIG O guidelines provide the following GFR categories: Stage GFR(ml/min/1.73 m2) Terms G1 >=90 Normal or high G2 60-89 Mildly decreased* G3a 45-59 Mildly to moderately decreased G3b 30-44 Moderately to severely decreased G4 15-29 Severely decreased G5 <15 Kidney failure *Relative to young adult level. In the absence of evidence of kidney damage, neither GFR category G1 nor G2 fulfill the criteria for CKD. The CKD-EPI equation is validated in individuals 18 years of age and older. Currently the best equation for estimating glomerular filtration rate (GFR) from serum creatinine in children is the Bedside Moss equation. It is less accurate in patients with extremes of muscle mass, restriction of dietary protein, ingestion of creatine, extra-renal metabolism of creatinine, or treatment with medications that affect renal tubular creatinine secretion. Performed By: #### M DIFF, MG3, HEMDF, BMP3M #### [facility] [address] [place] [address] Glucose [Mass/Vol] 92 mg/dL Normal 70-100 [facility] Comment on above: Performed By: #### M DIFF, MG3, HEMDF, BMP3M #### [facility] [address] [place] [address] Urea nitrogen [Mass/Vol] 10 mg/dL Normal 9-20 [facility] Comment on above: Performed By: #### M DIFF, MG3, HEMDF, BMP3M #### [facility] [address] [place] [address] Chloride [Moles/Vol] 106 mmol/L Normal 98-107 [facility] Comment on above: Performed By: #### M DIFF, MG3, HEMDF, BMP3M #### [facility] [address] [place] [address] Potassium [Moles/Vol] 3.5 mmol/L Normal 3.5-5.1 [facility] Comment on above: Performed By: #### M DIFF, MG3, HEMDF, BMP3M #### [facility] [address] [place] [address] Sodium [Moles/Vol] 140 mmol/L Normal 135-145 [facility] Comment on above: Performed By: #### M DIFF, MG3, HEMDF, BMP3M #### [facility] [address] [place] [address] Basic Metabolic Panel w/ Ref taiwo to MGon 04-17-2022 Anion gap [Moles/Vol] 4 mmol/L 3 - 13 mmol/L [facility] Work Phone: Calcium [Mass/Vol] 8.7 mg/dL 8.4 - 10. 4 mg/dL [facility] Work Phone: Chloride [Moles/Vol] 106 mmol/L 98 - 10 7 mmol/L [facility] Work Phone: CO2 [Moles/Vol] 30 mmol/L 22 - 30 mmol/L [facility] Work Phone: Creatinine [Mass/Vol] 0.63 mg/dL 0.52 - 1.25 mg/dL [employer] Work Phone: eGFR mL/min 60 - P INF mL/min [employer] Work Phone: EGFR IF NonAfrican Estonian 89.1 mL/min 60 - PINF mL/min [employer] Work Phone: Comment on above: KDIGO guidelines pro vide the following GFR categories: Stage GFR(ml/min/1.73 m2) Terms G1 >=90 Normal or high G2 60-89 Mildly decreased* G3a 45-59 Mildly to moderately decreased G3b 30-44 Moderately to severely decreased G4 15-29 Severely decreased G5 <15 Kidney failure *Relative to young adult level. In the absence of evidence of kidney damage, neither GFR category G1 nor G2 fulfill the criteria for CKD. The CKD-EPI equation is validated in individuals 18 years of age and older. Currently the best equation for estimating glomerular filtration rate (GFR) from serum creatinine in children is the Bedside Moss equation. It is less accurate in patients with extremes of muscle mass, restriction of dietary protein, ingestion of creatine, extra-renal metabolism of creatinine, or treatment with medications that affect renal tubular creatinine secretion. Glucose [Mass/Vol] 92 mg/dL 70 - 100 mg/dL [employer] Work Phone: Potassium [Moles/Vol] 3.5 mmol/L 3.5 - 5.1 mmol/L [employer] Phone: Sodium [Moles/Vol] 140 mmol/L 135 - 145 mmol/L [employer] Phone: Urea nitrogen (BldV) [Mass/Vol] 10 mg/dL 9 - 20 mg/dL [employer] Work Phone: CBC with Auto Differentialon 04-17-2022 Hematocrit (Bld) [Volume fraction] 34.1 % Low 35 - 47 % [employer] Work Phone: Hemoglobin (Bld) [Mass/Vol] 11.2 g/dL Low 11.7 - 16 g/dL [employer] Phone: Interpretation and review of laboratory results Abnormal [employer] Work Phone: MCH (RBC) [Entitic mass] 30.2 pg 26 - 34 pg [facility] Work Phone: MCHC (RBC) [Mass/Vol] 32.9 % 32 - 36 % [facility] Work Phone: MCV (RBC) [Entitic vol] 91.7 fL 79 - 98 fL S [facility] Work Phone: Platelet distribution width (Bld) [Ratio] 15.5 % High 11.5 - 14.5 % [facility] Work Phone: Platelet mean volume (Bld) [Entitic vol] 7.8 fL 7.4 - 12.4 fL [employer] Work Phone: Comment on above: MPV is a calculated measurement using platelet volume ratio. Platelets (Bld) [#/Vol] 438 10*3/uL 140 - 440 10*3/uL [employer] Work Phone: RBC (Bld) [#/Vol] 3.72 10*6/uL Low 3.8 - 5.2 10*6/uL [facility] Work Phone: WBC (Bld) [#/Vol] 14.3 10*3/uL High 3.6 - 10.7 10*3/uL [employer] Work Phone: CULTURE BLOOD (Two)on 2021 Microscopic examination of blood, culture CULTURE BLOOD (Two) --> Status: F No growth at 5 days. Normal [employer] Comment on above: Performed By: #### M DIFF, BMP3M, HEMDF #### [employer] [address] [place] [address] Culture, Blood 2on 2 Blood Culture, Routine No growth at 5 days. [employer] Work Phone: Test Performed by [employer], [address] [place] [id number] [facility] LAB [facility] Work Phone: Hemogram w/ Autodiffon 04-17 Erythrocyte distribution width (RBC) [Ratio] 15.5 % High 11.5-14.5 [facility] Comment on above: Performed By: #### M DIFF, MG3, HEMDF, BMP3M #### [facility] [address] [place] [address] Hematocrit (Bld) [Volume fraction] 34.1 % Low 35.0-47.0 [facility] Comment on above: Performed By: #### M DIFF, MG3, HEMDF, BMP3M #### [facility] [address] [place] [address] Hemoglobin (Bld) [Mass/Vol] 11.2 g/dL Low 11.7-16.0 [facility] Comment on above: Performed By: #### M DIFF, MG3, HEMDF, BMP3M #### [facility] [address] [place] [address] MCH (RBC) [Entitic mass] 30.2 pg Normal 26.0-34.0 [facility] Comment on above: Performed By: #### M DIFF, MG3, HEMDF, BMP3M #### [facility] [address] [place] [address] MCHC 32.9 % Normal 32.0-36.0 [facility] Comment on above: Performed By: #### M DIFF, MG3, HEMDF, BMP3M #### [facility] [address] [place] [address] MCV (RBC) [Entitic vol] 91.7 fL Normal 79.0-98.0 [facility] Comment on above: Performed By: #### M DIFF, MG3, HEMDF, BMP3M #### [facility] [address] [place] [address] Platelet mean volume (Bld) [Entitic vol] 7.8 fL Normal 7.4-12.4 [facility] Comment on above: Result Comment: MPV is a calculated measurement using platelet volume ratio. Performed By: #### M DIFF, MG3, HEMDF, BMP3M #### [facility] [address] [place] [address] Platelets (Bld) [#/Vol] 438 10*3/uL Normal 140-440 [facility] Comment on above: Performed By: #### M DIFF, MG3, HEMDF, BMP3M #### [facility] [address] [place] [address] RBC (Bld) [#/Vol] 3.72 10*6/uL Low 3.80-5.20 [facility] Comment on above: Performed By: #### M DIFF, MG3, HEMDF, BMP3M #### [facility] [address] [place] [address] WBC (Bld) [#/Vol] 14.3 10*3/uL High 3.6-10.7 [facility] Comment on above: Performed By: #### M DIFF, MG3, HEMDF, BMP3M #### [facility] [address] [place] [address] Magnesiumon 04-17-2022 Magnesium [Mass/Vol] 2.1 mg/dL Normal 1.6-2.3 [facility] Comment on above: Performed By: #### M DIFF, MG3, HEMDF, BMP3M #### [facility] [address] [place] [address] Magnesium [Mass/Vol] 2.1 mg/dL 1.6 - 2 .3 mg/dL [facility] Work Phone: Test Performed by [facility], [facility] [address] [place], [place] [id number] [place] [address] LAB [facility] Work Phone: Manual Diffon 04-17-2022 Abs Eosin Cnt 0.1 10*3/uL Normal 0.0-0.5 [facility] Comment on above: Performed By: #### M DIFF, MG3, HEMDF, BMP3M #### [facility] [address] [place] [address] Abs Lymph Cnt 3.3 10*3/uL Normal 1.1-4.5 [facility] Comment on above: Performed By: #### M DIFF, MG3, HEMDF, BMP3M #### [facility] [address] [place] [address] Abs Monocyte Cnt 0.9 10*3/uL Normal 0.2-1.1 [facility] Comment on above: Performed By: #### M DIFF, MG3, HEMDF, BMP3M #### [facility] [address] [place] [address] Abs Neutrophile Cnt 10.0 10*3/uL High 2.2-8.2 [facility] Comment on above: Performed By: #### M DIFF, MG3, HEMDF, BMP3M #### [facility] [address] [place] [address] Anisocytosis Slight Normal [facility] Comment on above: Performed By: #### M DIFF, MG3, HEMDF, BMP3M #### [facility] [address] [place] [address] Bands 1 % Normal 0-3 [facility] Comment on above: Performed By: #### M DIFF, MG3, HEMDF, BMP3M #### [facility] [address] [place] [address] Eosinophils 1 % Normal 1-6 [facility] Comment on above: Performed By: #### M DIFF, MG3, HEMDF, BMP3M #### [facility] [address] [place] [address] Lymphocytes 23 % Normal 20-40 [facility] Comment on above: Performed By: #### M DIFF, MG3, HEMDF, BMP3M #### [facility] [address] [place] [address] Monocytes 6 % Normal 2-10 [facility] Comment on above: Performed By: #### M DIFF, MG3, HEMDF, BMP3M #### [facility] [address] [place] [address] Ovalocytes Slight Normal [facility] Comment on above: Performed By: #### M DIFF, MG3, HEMDF, BMP3M #### [facility] [address] [place] [address] Poikilocytosis Slight Normal [facility] Comment on above: Performed By: #### M DIFF, MG3, HEMDF, BMP3M #### [facility] [address] [place] [address] Polychromasia Slight Normal [facility] Comment on above: Performed By: #### M DIFF, MG3, HEMDF, BMP3M #### [facility] [address] [place] [address] RBC Morphology ABNORMAL Normal [facility] Comment on above: Performed By: #### M DIFF, MG3, HEMDF, BMP3M #### [facility] [address] [place] [address] Seg Neutrophils 69 % Normal 40-80 [facility] Comment on above: Performed By: #### M DIFF, MG3, HEMDF, BMP3M #### [facility] [address] [place] [address] Target Cells Slight Normal [facility] Comment on above: Performed By: #### M DIFF, MG3, HEMDF, BMP3M #### [facility] [address] [place] [address] Abs Baso Cnt 0.0 10*3/uL Normal 0.0-0.2 [facility] Comment on above: Performed By: #### M DIFF, MG3, HEMDF, BMP3M #### [facility] [address] [place] [address] Basophils 0 % Normal 0-2 [facility] Comment on above: Performed By: #### M DIFF, MG3, HEMDF, BMP3M #### [facility] [address] [place] [address] Cells counted 100 Normal [facility] Comment on above: Performed By: #### M DIFF, MG3, HEMDF, BMP3M #### [facility] [address] [place] [address] Manual Differentialon 2021 Absolute Baso # 0.0 10*3/uL 0 - 0.2 10*3/uL [employer] Work Phone: Absolute Eos # 0.1 10*3/uL 0 - 0.5 10*3/uL [employer] Work Phone: Absolute Lymph # 3.3 10*3/uL 1.1 - 4.5 10*3/uL [employer] Work Phone: Absolute [place] # 0.9 10*3/uL 0.2 - 1.1 10*3/uL [facility] Work Phone: [phone] Absolute Neut # 10.0 10*3/uL High 2.2 - 8.2 10*3/uL [facility] Work Phone: [phone] Anisocytosis Slight [facility] Work Phone: Bands 1 % 0 - 3 % [facility] Work Phone: Basophils/100 WBC (Bld) 0 % 0 - 2 % [facility] Work Phone: Eosinophils/100 WBC (Bld) 1 % 1 - 6 % [facility] Work Phone: Interpretation and review of laboratory results Abnormal [facility] Work Phone: Lymphocytes/100 WBC (Bld) 23 % 20 - 40 % [facility] Work Phone: [phone] Monocytes/100 WBC (Bld) 6 % 2 - 10 % [facility] Work Phone: Ovalocytes Slight [facility] Work Phone: Poikilocytes Slight [facility] Work Phone: Polychromasia Slight [facility] Work Phone: RBC (Bld) [#/Vol] ABNORMAL [facility] Work Phone: [phone] Seg Neutrophils 69 % 40 - 80 % [facility] Work Phone: [phone] Target Cells Slight [facility] Work Phone: TOTAL CELLS COUNTED 100 [facility] Work Phone: [facility], [address] [place], [place] [id number] [place] [address] LAB [facility] Work Phone: No Panel Informationon 04-17 Test Performed by [facility], [address] [place], [place] [id number] [place] [address] LAB [facility] Work Phone: [phone] Basic Metabolic Panelon 04-05 Anion gap [Moles/Vol] 8 mmol/L Normal 3-13 [facility] Comment on above: Performed By: #### M DIFF, BMP3M, HEMDF #### [facility] [address] [place] [address] Calcium [Mass/Vol] 8.9 mg/dL Normal 8.4-10.4 [facility] Comment on above: Performed By: #### M DIFF, BMP3M, HEMDF #### [facility] [address] [place] [address] CO2 [Moles/Vol] 23 mmol/L Normal 22-30 [facility] Comment on above: Performed By: #### M DIFF, BMP3M, HEMDF #### [facility] [address] [place] [address] Glucose [Mass/Vol] 95 mg/dL Normal 70-100 [facility] Comment on above: Performed By: #### M DIFF, BMP3M, HEMDF #### [facility] [address] [place] [address] Urea nitrogen [Mass/Vol] 13 mg/dL Normal 9-20 [facility] Comment on above: Performed By: #### M DIFF, BMP3M, HEMDF #### [facility] [address] [place] [address] Creatinine [Mass/Vol] 0.70 mg/dL Normal 0.52-1.25 [facility] Comment on above: Performed By: #### M DIFF, BMP3M, HEMDF #### [facility] [address] [place] [address] GFR/1.73 sq M.predicted among blacks MDRD (S/P/Bld) [Vol rate/Area] mL/min/{1.73_m2} Normal >60 [facility] Comment on above: Performed By: #### M DIFF, BMP3M, HEMDF #### [facility] [address] [place] [address] GFR/1.73 sq M.predicted among non-blacks MDRD (S/P/Bld) [Vol rate/Area] 86.1 mL/min/{1.73_m2} Normal >60 [facility] Comment on above: Result Comment: KDIG O guidelines provide the following GFR categories: Stage GFR(ml/min/1.73 m2) Terms G1 >=90 Normal or high G2 60-89 Mildly decreased* G3a 45-59 Mildly to moderately decreased G3b 30-44 Moderately to severely decreased G4 15-29 Severely decreased G5 <15 Kidney failure *Relative to young adult level. In the absence of evidence of kidney damage, neither GFR category G1 nor G2 fulfill the criteria for CKD. The CKD-EPI equation is validated in individuals 18 years of age and older. Currently the best equation for estimating glomerular filtration rate (GFR) from serum creatinine in children is the Bedside Moss equation. It is less accurate in patients with extremes of muscle mass, restriction of dietary protein, ingestion of creatine, extra-renal metabolism of creatinine, or treatment with medications that affect renal tubular creatinine secretion. Performed By: #### M DIFF, BMP3M, HEMDF #### [facility] [address] [place] [address] Potassium [Moles/Vol] 3.7 mmol/L Normal 3.5-5.1 [facility] Comment on above: Performed By: #### M DIFF, BMP3M, HEMDF #### [facility] [address] [place] [address] Sodium [Moles/Vol] 141 mmol/L Normal 135-145 [facility] Comment on above: Performed By: #### M DIFF, BMP3M, HEMDF #### [facility] [address] [place] [address] Chloride [Moles/Vol] 111 mmol/L High 98-107 [facility] Comment on above: Performed By: #### M DIFF, BMP3M, HEMDF #### [facility] [address] [place] [address] Anion gap [Moles/Vol] 8 mmol/L 3 - 13 mmol/L [facility] Calcium [Mass/Vol] 8.9 mg/dL 8.4 - 10. 4 mg/dL [facility] Chloride [Moles/Vol] 111 mmol/L High 98 - 10 7 mmol/L [facility] CO2 [Moles/Vol] 23 mmol/L 22 - 30 mmol/L [facility] Creatinine [Mass/Vol] 0.7 mg/dL 0.52 - 1.25 mg/dL [facility] eGFR mL/min 60 - P INF mL/min [facility] EGFR IF NonAfrican Estonian 86.1 mL/min 60 - PINF mL/min [facility] Comment on above: KDIGO guidelines pro vide the following GFR categories: Stage GFR(ml/min/1.73 m2) Terms G1 >=90 Normal or high G2 60-89 Mildly decreased* G3a 45-59 Mildly to moderately decreased G3b 30-44 Moderately to severely decreased G4 15-29 Severely decreased G5 <15 Kidney failure *Relative to young adult level. In the absence of evidence of kidney damage, neither GFR category G1 nor G2 fulfill the criteria for CKD. The CKD-EPI equation is validated in individuals 18 years of age and older. Currently the best equation for estimating glomerular filtration rate (GFR) from serum creatinine in children is the Bedside Moss equation. It is less accurate in patients with extremes of muscle mass, restriction of dietary protein, ingestion of creatine, extra-renal metabolism of creatinine, or treatment with medications that affect renal tubular creatinine secretion. Glucose [Mass/Vol] 95 mg/dL 70 - 100 mg/dL [facility] Interpretation and review of laboratory results Abnormal [facility] Potassium [Moles/Vol] 3.7 mmol/L 3.5 - 5.1 mmol/L [facility] Sodium [Moles/Vol] 141 mmol/L 135 - 145 mmol/L [facility] Urea nitrogen (BldV) [Mass/Vol] 13 mg/dL 9 - 20 mg/dL [facility] Test Performed by [facility], [address] [place] [id number] [place] [address] LAB [facility] CBC with Auto Differentialon 04-16-2022 Absolute Baso # 0.2 10*3/uL 0 - 0.2 10*3/uL [facility] Absolute Neut # 9.0 10*3/uL High 1.8 - 7 10*3/uL [facility] Basophils/100 WBC (Bld) 1.1 % 0 - 2 % [facility] Eosinophils (Bld) [#/Vol] 0.4 10*3/uL 0 - 0.5 10*3/uL [facility] Eosinophils/100 WBC (Bld) 2.5 % 1 - 6 % [facility] Granulocytes/100 WBC (Bld) 63.2 % 40 - 80 % [facility] Hematocrit (Bld) [Volume fraction] 36.4 % 35 - 47 % [facility] Hemoglobin (Bld) [Mass/Vol] 12.0 g/dL 11.7 - 16 g/dL [facility] Interpretation and review of laboratory results Abnormal [facility] Lymphocytes (Bld) [#/Vol] 3.7 10*3/uL 1 - 4.3 10*3/uL [facility] Lymphocytes/100 WBC (Bld) 26.2 % 20 - 40 % [facility] MCH (RBC) [Entitic mass] 30.0 pg 26 - 34 pg [facility] MCHC (RBC) [Mass/Vol] 32.8 % 32 - 36 % [facility] MCV (RBC) [Entitic vol] 91.4 fL 79 - 98 fL [facility] Monocytes (Bld) [#/Vol] 1.0 10*3/uL High 0 - 0.8 10*3/uL [facility] Monocytes/100 WBC (Bld) 7.0 % 2 - 10 % [facility] Platelet distribution width (Bld) [Ratio] 15.7 % High 11.5 - 14.5 % [facility] Platelet mean volume (Bld) [Entitic vol] 8.0 fL 7.4 - 12.4 fL [facility] Comment on above: MPV is a calculated measurement using platelet volume ratio. Platelets (Bld) [#/Vol] 410 10*3/uL 140 - 440 10*3/uL [facility] RBC (Bld) [#/Vol] 3.98 10*6/uL 3.8 - 5.2 10*6/uL [facility] WBC (Bld) [#/Vol] 14.2 10*3/uL High 3.6 - 10.7 10*3/uL [facility] Test Performed by [facility], [address] [place], [place] [id number] [place] [address] LAB [facility] Hemogram w/ Autodiffon 04-16 Abs Baso Cnt 0.2 10*3/uL Normal 0.0-0.2 [facility] Comment on above: Performed By: #### M DIFF, BMP3M, HEMDF #### [facility] [address] [place] [address] Abs Neutrophile Cnt 9.0 10*3/uL High 1.8-7.0 [facility] Comment on above: Performed By: #### M DIFF, BMP3M, HEMDF #### [facility] [address] [place] [address] Basophils/100 WBC (Bld) 1.1 % Normal 0.0-2.0 [facility] Comment on above: Performed By: #### M DIFF, BMP3M, HEMDF #### [facility] [address] [place] [address] Eosinophils (Bld) [#/Vol] 0.4 10*3/uL Normal 0.0-0.5 [facility] Comment on above: Performed By: #### M DIFF, BMP3M, HEMDF #### [facility] [address] [place] [address] Eosinophils/100 WBC (Bld) 2.5 % Normal 1.0-6.0 [facility] Comment on above: Performed By: #### M DIFF, BMP3M, HEMDF #### [facility] [address] [place] [address] Erythrocyte distribution width (RBC) [Ratio] 15.7 % High 11.5-14.5 [facility] Comment on above: Performed By: #### M DIFF, BMP3M, HEMDF #### [facility] [address] [place] [address] Granulocytes/100 WBC (Bld) 63.2 % Normal 40.0-80.0 [facility] Comment on above: Performed By: #### M DIFF, BMP3M, HEMDF #### [facility] [address] [place] [address] Hematocrit (Bld) [Volume fraction] 36.4 % Normal 35.0-47.0 [facility] Comment on above: Performed By: #### M DIFF, BMP3M, HEMDF #### [facility] [address] [place] [address] Hemoglobin (Bld) [Mass/Vol] 12.0 g/dL Normal 11.7-16.0 [facility] Comment on above: Performed By: #### M DIFF, BMP3M, HEMDF #### [facility] [address] [place] [address] Lymphocytes (Bld) [#/Vol] 3.7 10*3/uL Normal 1.0-4.3 [facility] Comment on above: Performed By: #### M DIFF, BMP3M, HEMDF #### [facility] [address] [place] [address] Lymphocytes/100 WBC (Bld) 26.2 % Normal 20.0-40.0 [facility] Comment on above: Performed By: #### M DIFF, BMP3M, HEMDF #### [facility] [address] [place] [address] MCH (RBC) [Entitic mass] 30.0 pg Normal 26.0-34.0 [facility] Comment on above: Performed By: #### M DIFF, BMP3M, HEMDF #### [facility] [address] [place] [address] MCHC 32.8 % Normal 32.0-36.0 [facility] Comment on above: Performed By: #### M DIFF, BMP3M, HEMDF #### [facility] [address] [place] [address] MCV (RBC) [Entitic vol] 91.4 fL Normal 79.0-98.0 [facility] Comment on above: Performed By: #### M DIFF, BMP3M, HEMDF #### [facility] [address] [place] [address] Monocytes (Bld) [#/Vol] 1.0 10*3/uL High 0.0-0.8 [facility] Comment on above: Performed By: #### M DIFF, BMP3M, HEMDF #### [facility] [address] [place] [address] Monocytes/100 WBC (Bld) 7.0 % Normal 2.0-10.0 [facility] Comment on above: Performed By: #### M DIFF, BMP3M, HEMDF #### [facility] [address] [place] [address] Platelet mean volume (Bld) [Entitic vol] 8.0 fL Normal 7.4-12.4 [facility] Comment on above: Result Comment: MPV is a calculated measurement using platelet volume ratio. Performed By: #### M DIFF, BMP3M, HEMDF #### [facility] [address] [place] [address] Platelets (Bld) [#/Vol] 410 10*3/uL Normal 140-440 [facility] Comment on above: Performed By: #### M DIFF, BMP3M, HEMDF #### [facility] [address] [place] [address] RBC (Bld) [#/Vol] 3.98 10*6/uL Normal 3.80-5.20 [facility] Comment on above: Performed By: #### M DIFF, BMP3M, HEMDF #### [facility] [address] [place] [address] WBC (Bld) [#/Vol] 14.2 10*3/uL High 3.6-10.7 [facility] Comment on above: Performed By: #### M DIFF, BMP3M, HEMDF #### [facility] [address] [place] [address] Basic Metabolic Panelon 04-05-2021 Calcium [Mass/Vol] 8.8 mg/dL Normal 8.4-10.4 [facility] Comment on above: Performed By: #### M DIFF, BMP3M, HEMDF #### [facility] [address] [place] [address] Glucose [Mass/Vol] 105 mg/dL High 70-100 [facility] Comment on above: Performed By: #### M DIFF, BMP3M, HEMDF #### [facility] [address] [place] [address] Urea nitrogen [Mass/Vol] 16 mg/dL Normal 9-20 [facility] Comment on above: Performed By: #### M DIFF, BMP3M, HEMDF #### [facility] [address] [place] [address] Anion gap [Moles/Vol] 3 mmol/L Normal 3-13 [facility] Comment on above: Performed By: #### M DIFF, BMP3M, HEMDF #### [facility] [address] [place] [address] CO2 [Moles/Vol] 28 mmol/L Normal 22-30 [facility] Comment on above: Performed By: #### M DIFF, BMP3M, HEMDF #### [facility] [address] [place] [address] Creatinine [Mass/Vol] 0.69 mg/dL Normal 0.52-1.25 [facility] Comment on above: Performed By: #### M DIFF, BMP3M, HEMDF #### [facility] [address] [place] [address] GFR/1.73 sq M.predicted among blacks MDRD (S/P/Bld) [Vol rate/Area] mL/min/{1.73_m2} Normal >60 [facility] Comment on above: Performed By: #### M DIFF, BMP3M, HEMDF #### [facility] [address] [place] [address] GFR/1.73 sq M.predicted among non-blacks MDRD (S/P/Bld) [Vol rate/Area] 86.5 mL/min/{1.73_m2} Normal >60 [facility] Comment on above: Result Comment: KDIG O guidelines provide the following GFR categories: Stage GFR(ml/min/1.73 m2) Terms G1 >=90 Normal or high G2 60-89 Mildly decreased* G3a 45-59 Mildly to moderately decreased G3b 30-44 Moderately to severely decreased G4 15-29 Severely decreased G5 <15 Kidney failure *Relative to young adult level. In the absence of evidence of kidney damage, neither GFR category G1 nor G2 fulfill the criteria for CKD. The CKD-EPI equation is validated in individuals 18 years of age and older. Currently the best equation for estimating glomerular filtration rate (GFR) from serum creatinine in children is the Bedside Moss equation. It is less accurate in patients with extremes of muscle mass, restriction of dietary protein, ingestion of creatine, extra-renal metabolism of creatinine, or treatment with medications that affect renal tubular creatinine secretion. Performed By: #### M DIFF, BMP3M, HEMDF #### [facility] [address] [place] [address] Chloride [Moles/Vol] 111 mmol/L High 98-107 [facility] Comment on above: Performed By: #### M DIFF, BMP3M, HEMDF #### [facility] [address] [place] [address] Potassium [Moles/Vol] 3.8 mmol/L Normal 3.5-5.1 [facility] Comment on above: Performed By: #### M DIFF, BMP3M, HEMDF #### [facility] [address] [place] [address] Sodium [Moles/Vol] 142 mmol/L Normal 135-145 [facility] Comment on above: Performed By: #### M DIFF, BMP3M, HEMDF #### [facility] [address] [place] [address] Anion gap [Moles/Vol] 3 mmol/L 3 - 13 mmol/L [facility] Calcium [Mass/Vol] 8.8 mg/dL 8.4 - 10. 4 mg/dL [facility] Chloride [Moles/Vol] 111 mmol/L High 98 - 10 7 mmol/L [facility] CO2 [Moles/Vol] 28 mmol/L 22 - 30 mmol/L [facility] Creatinine [Mass/Vol] 0.69 mg/dL 0.52 - 1.25 mg/dL [facility] eGFR mL/min 60 - P INF mL/min [facility] EGFR IF NonAfrican Estonian 86.5 mL/min 60 - PINF mL/min [facility] Comment on above: KDIGO guidelines pro vide the following GFR categories: Stage GFR(ml/min/1.73 m2) Terms G1 >=90 Normal or high G2 60-89 Mildly decreased* G3a 45-59 Mildly to moderately decreased G3b 30-44 Moderately to severely decreased G4 15-29 Severely decreased G5 <15 Kidney failure *Relative to young adult level. In the absence of evidence of kidney damage, neither GFR category G1 nor G2 fulfill the criteria for CKD. The CKD-EPI equation is validated in individuals 18 years of age and older. Currently the best equation for estimating glomerular filtration rate (GFR) from serum creatinine in children is the Bedside Moss equation. It is less accurate in patients with extremes of muscle mass, restriction of dietary protein, ingestion of creatine, extra-renal metabolism of creatinine, or treatment with medications that affect renal tubular creatinine secretion. Glucose [Mass/Vol] 105 mg/dL High 70 - 100 mg/dL [facility] Interpretation and review of laboratory results Abnormal [facility] Potassium [Moles/Vol] 3.8 mmol/L 3.5 - 5.1 mmol/L [facility] Sodium [Moles/Vol] 142 mmol/L 135 - 145 mmol/L [facility] Urea nitrogen (BldV) [Mass/Vol] 16 mg/dL 9 - 20 mg/dL [facility] Test Performed by [facility], [address] [facility] [place], [place] [address] [facility] LAB [facility] CULTURE BLOODon 04-15-2022 Microscopic examination of blood, culture CULTURE BLOOD --> Status: F Staphylococcus epidermidis DETECTED; mecA/C DETECTED. NOTE: This organism was detected by PCR but was not isolated using traditional culture methods. Presumptive identification performed using [employer] PCR methodology; confirmatory identification to follow. _ The [employer] BCID2 PCR Panel can detect the following targets: E. faecalis, E. faecium, Staphylococcus spp., S. aureus, S. epidermidis, S. lugdunensis, Streptococcus spp., S. pyogenes (Group A), S. agalactiae (Group B), S. pneumoniae, A. baumannii complex, B. fragilis, H. influenzae, N. meningitidis (encapsulated), P. aeruginosa, S. maltophilia, Enterobacterales, E. cloacae complex, E. coli, K. aerogenes, K. oxytoca, K. pneumoniae, Proteus spp., Salmonella spp., S. marcescens, C. albicans, C. auris, C. glabrata, C. krusei, C. parapsilosis, C. tropicalis, C. neoformans/gattii, and antimicrobial resistance genes: mecA/C, Jason/B, CTX-M, IMP, KPC, NDM, OXA-48-like, VIM, and mcr-1. NOTE: This organism was detected by PCR but was not isolated using traditional culture methods. Presumptive identification performed using [employer] PCR methodology; confirmatory identification to follow. _ The [employer] BCID2 PCR Panel can detect the following targets: E. faecalis, E. faecium, Staphylococcus spp., S. aureus, S. epidermidis, S. lugdunensis, Streptococcus spp., S. pyogenes (Group A), S. agalactiae (Group B), S. pneumoniae, A. baumannii complex, B. fragilis, H. influenzae, N. meningitidis (encapsulated), P. aeruginosa, S. maltophilia, Enterobacterales, E. cloacae complex, E. coli, K. aerogenes, K. oxytoca, K. pneumoniae, Proteus spp., Salmonella spp., S. marcescens, C. albicans, C. auris, C. glabrata, C. krusei, C. parapsilosis, C. tropicalis, C. neoformans/gattii, and antimicrobial resistance genes: mecA/C, Jason/B, CTX-M, IMP, KPC, NDM, OXA-48-like, VIM, and mcr-1. 1 Organism (Coagulase-negative ) Staphylococcus hominis Isolated: Contamination likely unless additional blood culture sets are found to be positive with the same organism. Normal [facility] Comment on above: Performed By: #### M DIFF, BMP3M, HEMDF #### [facility] [address] [place] [address] Culture, Bloodon 04-15-2022 Blood Culture, Routine Staphylococcus epidermidis DETECTED; mecA/C DETECTED. NOTE: This organism was detected by PCR but was not isolated using traditional culture methods. Presumptive identification performed using [employer] PCR methodology; confirmatory identification to follow. _ The [employer] BCID2 PCR Panel can detect the following targets: E. faecalis, E. faecium, Staphylococcus spp., S. aureus, S. epidermidis, S. lugdunensis, Streptococcus spp., S. pyogenes (Group A), S. agalactiae (Group B), S. pneumoniae, A. baumannii complex, B. fragilis, H. influenzae, N. meningitidis (encapsulated), P. aeruginosa, S. maltophilia, Enterobacterales, E. cloacae complex, E. coli, K. aerogenes, K. oxytoca, K. pneumoniae, Proteus spp., Salmonella spp., S. marcescens, C. albicans, C. auris, C. glabrata, C. krusei, C. parapsilosis, C. tropicalis, C. neoformans/gattii, and antimicrobial resistance genes: mecA/C, Jason/B, CTX-M, IMP, KPC, NDM, OXA-48-like, VIM, and mcr-1. Abnormal [facility] Work Phone: Blood Culture, Routine Staphylococcus hominis Abnormal [facility] Work Phone: Blood Culture, Routine Isolated: Contamination likely unless additional blood culture sets are found to be positive with the same organism. [facility] Work Phone: Interpretation and review of laboratory results Abnormal [facility] Work Phone: Test Performed by [address] [address] [facility] LAB [facility] Work Phone: Basic Metabolic Panelon 09- 0-2021 Anion gap [Moles/Vol] 5 mmol/L Normal 3-13 [facility] Comment on above: Order Comment: Sligh t Hemolysis. Performed By: #### M DIFF, BMP3M, HEMDF #### [facility] [address] [place] [address] Calcium [Mass/Vol] 8.1 mg/dL Low 8.4-10.4 [facility] Comment on above: Order Comment: Sligh t Hemolysis. Performed By: #### M DIFF, BMP3M, HEMDF #### [facility] [address] [place] [address] CO2 [Moles/Vol] 24 mmol/L Normal 22-30 [facility] Comment on above: Order Comment: Sligh t Hemolysis. Performed By: #### M DIFF, BMP3M, HEMDF #### [facility] [address] [place] [address] Glucose [Mass/Vol] 98 mg/dL Normal 70-100 [facility] Comment on above: Order Comment: Sligh t Hemolysis. Performed By: #### M DIFF, BMP3M, HEMDF #### [facility] [address] [place] [address] Urea nitrogen [Mass/Vol] 20 mg/dL Normal 9-20 [facility] Comment on above: Order Comment: Sligh t Hemolysis. Performed By: #### M DIFF, BMP3M, HEMDF #### [facility] [address] [place] [address] Creatinine [Mass/Vol] 0.67 mg/dL Normal 0.52-1.25 [facility] Comment on above: Order Comment: Sligh t Hemolysis. Performed By: #### M DIFF, BMP3M, HEMDF #### [facility] [address] [place] [address] GFR/1.73 sq M.predicted among blacks MDRD (S/P/Bld) [Vol rate/Area] mL/min/{1.73_m2} Normal >60 [facility] Comment on above: Order Comment: Sligh t Hemolysis. Performed By: #### M DIFF, BMP3M, HEMDF #### [facility] [address] [place] [address] GFR/1.73 sq M.predicted among non-blacks MDRD (S/P/Bld) [Vol rate/Area] 87.3 mL/min/{1.73_m2} Normal >60 [facility] Comment on above: Order Comment: Sligh t Hemolysis. Result Comment: KDIG O guidelines provide the following GFR categories: Stage GFR(ml/min/1.73 m2) Terms G1 >=90 Normal or high G2 60-89 Mildly decreased* G3a 45-59 Mildly to moderately decreased G3b 30-44 Moderately to severely decreased G4 15-29 Severely decreased G5 <15 Kidney failure *Relative to young adult level. In the absence of evidence of kidney damage, neither GFR category G1 nor G2 fulfill the criteria for CKD. The CKD-EPI equation is validated in individuals 18 years of age and older. Currently the best equation for estimating glomerular filtration rate (GFR) from serum creatinine in children is the Bedside Moss equation. It is less accurate in patients with extremes of muscle mass, restriction of dietary protein, ingestion of creatine, extra-renal metabolism of creatinine, or treatment with medications that affect renal tubular creatinine secretion. Performed By: #### M DIFF, BMP3M, HEMDF #### [facility] [address] [place] [address] Potassium [Moles/Vol] 3.8 mmol/L Normal 3.5-5.1 [facility] Comment on above: Order Comment: Sligh t Hemolysis. Performed By: #### M DIFF, BMP3M, HEMDF #### [facility] [address] [place] [address] Chloride [Moles/Vol] 117 mmol/L High 98-107 [facility] Comment on above: Order Comment: Sligh t Hemolysis. Performed By: #### M DIFF, BMP3M, HEMDF #### [facility] [address] [place] [address] Sodium [Moles/Vol] 146 mmol/L High 135-145 [facility] Comment on above: Order Comment: Sligh t Hemolysis. Performed By: #### M DIFF, BMP3M, HEMDF #### [facility] [address] [place] [address] Basic Metabolic Panel w/ Ref taiwo to MGon 04-14-2022 Anion gap [Moles/Vol] 5 mmol/L 3 - 13 mmol/L [facility] Work Phone: Calcium [Mass/Vol] 8.1 mg/dL Low 8.4 - 10. 4 mg/dL [facility] Work Phone: Chloride [Moles/Vol] 117 mmol/L High 98 - 10 7 mmol/L [facility] Work Phone: CO2 [Moles/Vol] 24 mmol/L 22 - 30 mmol/L [facility] Work Phone: Creatinine [Mass/Vol] 0.67 mg/dL 0.52 - 1.25 mg/dL [employer] Work Phone: eGFR mL/min 60 - P INF mL/min [employer] Work Phone: EGFR IF NonAfrican Estonian 87.3 mL/min 60 - PINF mL/min [facility] Work Phone: Comment on above: KDIGO guidelines pro vide the following GFR categories: Stage GFR(ml/min/1.73 m2) Terms G1 >=90 Normal or high G2 60-89 Mildly decreased* G3a 45-59 Mildly to moderately decreased G3b 30-44 Moderately to severely decreased G4 15-29 Severely decreased G5 <15 Kidney failure *Relative to young adult level. In the absence of evidence of kidney damage, neither GFR category G1 nor G2 fulfill the criteria for CKD. The CKD-EPI equation is validated in individuals 18 years of age and older. Currently the best equation for estimating glomerular filtration rate (GFR) from serum creatinine in children is the Bedside Moss equation. It is less accurate in patients with extremes of muscle mass, restriction of dietary protein, ingestion of creatine, extra-renal metabolism of creatinine, or treatment with medications that affect renal tubular creatinine secretion. Glucose [Mass/Vol] 98 mg/dL 70 - 100 mg/dL [facility] Work Phone: Interpretation and review of laboratory results Abnormal [facility] Work Phone: [phone] Potassium [Moles/Vol] 3.8 mmol/L 3.5 - 5.1 mmol/L [facility] Work Phone: Sodium [Moles/Vol] 146 mmol/L High 135 - 145 mmol/L [facility] Work Phone: Urea nitrogen (BldV) [Mass/Vol] 20 mg/dL 9 - 20 mg/dL [facility] Work Phone: Test Performed by [facility], [address] [place] [id number] Slight Hemolysis. [facility] Work Phone: CBC with Auto Differentialon 04-14-2022 Hematocrit (Bld) [Volume fraction] 32.2 % Low 35 - 47 % [facility] Work Phone: Hemoglobin (Bld) [Mass/Vol] 10.8 g/dL Low 11.7 - 16 g/dL [facility] Work Phone: Interpretation and review of laboratory results Abnormal [facility] Work Phone: MCH (RBC) [Entitic mass] 30.5 pg 26 - 34 pg [facility] Work Phone: MCHC (RBC) [Mass/Vol] 33.5 % 32 - 36 % [facility] Work Phone: MCV (RBC) [Entitic vol] 90.9 fL 79 - 98 fL S [facility] Work Phone: Platelet distribution width (Bld) [Ratio] 15.4 % High 11.5 - 14.5 % [facility] Work Phone: Platelet mean volume (Bld) [Entitic vol] 8.7 fL 7.4 - 12.4 fL [employer] Work Phone: Comment on above: MPV is a calculated measurement using platelet volume ratio. Platelets (Bld) [#/Vol] 288 10*3/uL 140 - 440 10*3/uL [employer] Work Phone: RBC (Bld) [#/Vol] 3.55 10*6/uL Low 3.8 - 5.2 10*6/uL [employer] Work Phone: WBC (Bld) [#/Vol] 9.8 10*3/uL 3.6 - 10.7 10*3/uL [employer] Work Phone: Test Performed by [employer], [address] [place], [place] [id number] [place] [address] LAB [employer] Work Phone: CULTURE BLOODon 04-14-2022 Microscopic examination of blood, culture 1 Organism Escherichia coli Isolated: For identification and/or sensitivity, refer to culture collected on: 04/10/22 @ 2058 ([id number]). Normal [facility] Comment on above: Performed By: #### M DIFF, BMP3M, HEMDF #### [facility] [address] [place] [address] CULTURE BLOOD (Two)on 2021 Microscopic examination of blood, culture CULTURE BLOOD (Two) --> Status: F Escherichia coli DETECTED. Presumptive identification performed using [employer] PCR methodology; confirmatory identification to follow. _ The [employer] BCID2 PCR Panel can detect the following targets: E. faecalis, E. faecium, Staphylococcus spp., S. aureus, S. epidermidis, S. lugdunensis, Streptococcus spp., S. pyogenes (Group A), S. agalactiae (Group B), S. pneumoniae, A. baumannii complex, B. fragilis, H. influenzae, N. meningitidis (encapsulated), P. aeruginosa, S. maltophilia, Enterobacterales, E. cloacae complex, E. coli, K. aerogenes, K. oxytoca, K. pneumoniae, Proteus spp., Salmonella spp., S. marcescens, C. albicans, C. auris, C. glabrata, C. krusei, C. parapsilosis, C. tropicalis, C. neoformans/gattii, and antimicrobial resistance genes: mecA/C, Jason/B, CTX-M, IMP, KPC, NDM, OXA-48-like, VIM, and mcr-1. Presumptive identification performed using [employer] PCR methodology; confirmatory identification to follow. _ The [employer] BCID2 PCR Panel can detect the following targets: E. faecalis, E. faecium, Staphylococcus spp., S. aureus, S. epidermidis, S. lugdunensis, Streptococcus spp., S. pyogenes (Group A), S. agalactiae (Group B), S. pneumoniae, A. baumannii complex, B. fragilis, H. influenzae, N. meningitidis (encapsulated), P. aeruginosa, S. maltophilia, Enterobacterales, E. cloacae complex, E. coli, K. aerogenes, K. oxytoca, K. pneumoniae, Proteus spp., Salmonella spp., S. marcescens, C. albicans, C. auris, C. glabrata, C. krusei, C. parapsilosis, C. tropicalis, C. neoformans/gattii, and antimicrobial resistance genes: mecA/C, Jason/B, CTX-M, IMP, KPC, NDM, OXA-48-like, VIM, and mcr-1. 1 Organism Escherichia coli Isolated: 1 Organism Antibiotic Result Intrp Ampicillin(GABINO) <= 2 S Cefazolin(GABINO) <= 4 S Ceftriaxone(GABINO) <= 1 S Cefepime(GABINO) <= 1 S Aztreonam(GABINO) <= 1 S Ampicillin/Sulbacta m(GABINO) <= 2 S Pip/Tazobactam(GABINO) <= 4 S Meropenem(GABINO) <= 0.25 S Ciprofloxacin(GABINO) <= 0.25 S Gentamicin(GABINO) <= 1 S Amikacin(GABINO) <= 2 S Normal [facility] Comment on above: Performed By: #### M DIFF, BMP3M, HEMDF #### [facility] [address] [place] [address] Culture, Bloodon 04-14-2022 Blood Culture, Routine Escherichia coli Abnormal [facility] Blood Culture, Routine Isolated: For identification and/or sensitivity, refer to culture collected on: 04/10/22 @ 2058 ([id number]). [facility] Interpretation and review of laboratory results Abnormal [facility] Test Performed by [facility], [address] [place] [id number] [facility] Culture, Blood 2on Blood Culture, Routine Escherichia coli DETECTED. Presumptive identification performed using [employer] PCR methodology; confirmatory identification to follow. _ The [employer] BCID2 PCR Panel can detect the following targets: E. faecalis, E. faecium, Staphylococcus spp., S. aureus, S. epidermidis, S. lugdunensis, Streptococcus spp., S. pyogenes (Group A), S. agalactiae (Group B), S. pneumoniae, A. baumannii complex, B. fragilis, H. influenzae, N. meningitidis (encapsulated), P. aeruginosa, S. maltophilia, Enterobacterales, E. cloacae complex, E. coli, K. aerogenes, K. oxytoca, K. pneumoniae, Proteus spp., Salmonella spp., S. marcescens, C. albicans, C. auris, C. glabrata, C. krusei, C. parapsilosis, C. tropicalis, C. neoformans/gattii, and antimicrobial resistance genes: mecA/C, Jason/B, CTX-M, IMP, KPC, NDM, OXA-48-like, VIM, and mcr-1. Abnormal [facility] Blood Culture, Routine Escherichia coli Abnormal [facility] Blood Culture, Routine Isolated: [facility] Interpretation and review of laboratory results Abnormal [facility] Test Performed by [facility], [address] [place] [address] [address] [facility] Hemogram w/ Autodiffon 04-14 Erythrocyte distribution width (RBC) [Ratio] 15.4 % High 11.5-14.5 [facility] Comment on above: Performed By: #### M DIFF, BMP3M, HEMDF #### [facility] [address] [place] [address] Hematocrit (Bld) [Volume fraction] 32.2 % Low 35.0-47.0 [facility] Comment on above: Performed By: #### M DIFF, BMP3M, HEMDF #### [facility] [address] [place] [address] Hemoglobin (Bld) [Mass/Vol] 10.8 g/dL Low 11.7-16.0 [facility] Comment on above: Performed By: #### M DIFF, BMP3M, HEMDF #### [facility] [address] [place] [address] MCH (RBC) [Entitic mass] 30.5 pg Normal 26.0-34.0 [facility] Comment on above: Performed By: #### M DIFF, BMP3M, HEMDF #### [facility] [address] [place] [address] MCHC 33.5 % Normal 32.0-36.0 [facility] Comment on above: Performed By: #### M DIFF, BMP3M, HEMDF #### [facility] [address] [place] [address] MCV (RBC) [Entitic vol] 90.9 fL Normal 79.0-98.0 S [facility] Comment on above: Performed By: #### M DIFF, BMP3M, HEMDF #### [facility] [address] [place] [address] Platelet mean volume (Bld) [Entitic vol] 8.7 fL Normal 7.4-12.4 [facility] Comment on above: Result Comment: MPV is a calculated measurement using platelet volume ratio. Performed By: #### M DIFF, BMP3M, HEMDF #### [facility] [address] [place] [address] Platelets (Bld) [#/Vol] 288 10*3/uL Normal 140-440 [facility] Comment on above: Performed By: #### M DIFF, BMP3M, HEMDF #### [facility] [address] [place] [address] RBC (Bld) [#/Vol] 3.55 10*6/uL Low 3.80-5.20 [facility] Comment on above: Performed By: #### M DIFF, BMP3M, HEMDF #### [facility] [address] [place] [address] WBC (Bld) [#/Vol] 9.8 10*3/uL Normal 3.6-10.7 [facility] Comment on above: Performed By: #### M DIFF, BMP3M, HEMDF #### [facility] [address] [place] [address] Manual Diffon 04-14-2022 Abs Eosin Cnt 0.1 10*3/uL Normal 0.0-0.5 [facility] Comment on above: Performed By: #### M DIFF, BMP3M, HEMDF #### [facility] [address] [place] [address] Abs Lymph Cnt 0.6 10*3/uL Low 1.1-4.5 [facility] Comment on above: Performed By: #### M DIFF, BMP3M, HEMDF #### [facility] [address] [place] [address] Abs Monocyte Cnt 0.6 10*3/uL Normal 0.2-1.1 [facility] Comment on above: Performed By: #### M DIFF, BMP3M, HEMDF #### [facility] [address] [place] [address] Abs Neutrophile Cnt 8.1 10*3/uL Normal 2.2-8.2 [facility] Comment on above: Performed By: #### M DIFF, BMP3M, HEMDF #### [facility] [address] [place] [address] Anisocytosis Slight Normal [facility] Comment on above: Performed By: #### M DIFF, BMP3M, HEMDF #### [facility] [address] [place] [address] Bands 1 % Normal 0-3 [facility] Comment on above: Performed By: #### M DIFF, BMP3M, HEMDF #### [facility] [address] [place] [address] Eosinophils 1 % Normal 1-6 [facility] Comment on above: Performed By: #### M DIFF, BMP3M, HEMDF #### [facility] [address] [place] [address] Lymphocytes 6 % Low 20-40 [facility] Comment on above: Performed By: #### M DIFF, BMP3M, HEMDF #### [facility] [address] [place] [address] Monocytes 6 % Normal 2-10 [facility] Comment on above: Performed By: #### M DIFF, BMP3M, HEMDF #### [facility] [address] [place] [address] Myelocytes 4 % Abnormal <1 [facility] Comment on above: Performed By: #### M DIFF, BMP3M, HEMDF #### [facility] [address] [place] [address] Polychromasia Slight Normal [facility] Comment on above: Performed By: #### M DIFF, BMP3M, HEMDF #### [facility] [address] [place] [address] RBC Morphology ABNORMAL Normal [facility] Comment on above: Performed By: #### M DIFF, BMP3M, HEMDF #### [facility] [address] [place] [address] Seg Neutrophils 82 % High 40-80 [facility] Comment on above: Performed By: #### M DIFF, BMP3M, HEMDF #### [facility] [address] [place] [address] Abs Baso Cnt 0.0 10*3/uL Normal 0.0-0.2 [facility] Comment on above: Performed By: #### M DIFF, BMP3M, HEMDF #### [facility] [address] [place] [address] Basophils 0 % Normal 0-2 [facility] [employer] Comment on above: Performed By: #### M DIFF, BMP3M, HEMDF #### [facility] [address] [place] [address] Cells counted 100 Normal [facility] Comment on above: Performed By: #### M DIFF, BMP3M, HEMDF #### [employer] [facility] [address] [place] [address] Manual Differentialon 2021 Absolute Baso # 0.0 10*3/uL 0 - 0.2 10*3/uL [facility] Work Phone: Absolute Eos # 0.1 10*3/uL 0 - 0.5 10*3/uL [facility] Work Phone: Absolute Lymph # 0.6 10*3/uL Low 1.1 - 4.5 10*3/uL [facility] Work Phone: Absolute [place] # 0.6 10*3/uL 0.2 - 1.1 10*3/uL [facility] Work Phone: Absolute Neut # 8.1 10*3/uL 2.2 - 8.2 10*3/uL [facility] Work Phone: Anisocytosis Slight [facility] Work Phone: Bands 1 % 0 - 3 % [facility] Work Phone: Basophils/100 WBC (Bld) 0 % 0 - 2 % S [facility] Work Phone: Eosinophils/100 WBC (Bld) 1 % 1 - 6 % [facility] Work Phone: Interpretation and review of laboratory results Abnormal [facility] Work Phone: Lymphocytes/100 WBC (Bld) 6 % Low 20 - 40 % [facility] Work Phone: Monocytes/100 WBC (Bld) 6 % 2 - 10 % S [facility] Work Phone: Myelocytes 4 % Abnormal NINF - 1 % [employer] Work Phone: Polychromasia Slight [employer] Work Phone: RBC (Bld) [#/Vol] ABNORMAL [employer] Work Phone: Seg Neutrophils 82 % High 40 - 80 % [employer] Work Phone: TOTAL CELLS COUNTED 100 [employer] Work Phone: Test Performed by [facility], [address] [place] [address] LAB [facility] Work Phone: CULTURE URINEon 04-13-2022 CULTURE URINE CULTURE URINE --> Status: F Normal urogenital enriqueta present. 1 Organism Escherichia coli 50,000-90,000 CFU/ml 1 Organism Antibiotic Result Intrp Ampicillin(GABINO) <= 2 S Cefazolin(GABINO) <= 4 S Ceftriaxone(GABINO) <= 1 S Cefepime(GABINO) <= 1 S Aztreonam(GABINO) <= 1 S Amoxicillin/Clavula renato Acid(GABINO) <= 2 S Ampicillin/Sulbacta m(GABINO) <= 2 S Pip/Tazobactam(GABINO) <= 4 S Meropenem(GABINO) <= 0.25 S Ciprofloxacin(GABINO) <= 0.25 S Trimeth/Sulfa(GABINO) <= 20 S Nitrofurantoin(GABINO) <= 16 S Gentamicin(GABINO) <= 1 S Amikacin(GABINO) <= 2 S Normal [facility] Comment on above: Performed By: #### M DIFF, BMP3M, HEMDF #### [facility] [address] [place] [address] Culture, Urineon 04-13-2022 Bacteria identified Cx Nom (U) Normal urogenital enriqueta present. Abnormal [facility] Bacteria identified Cx Nom (U) Escherichia coli Abnormal [facility] Bacteria identified Cx Nom (U) 50,000-90,000 CFU/ml [facility] Interpretation and review of laboratory results Abnormal [facility] Test Performed by [address] [place] [address] [facility] Basic Metabolic Panelon Calcium [Mass/Vol] 7.9 mg/dL Low 8.4-10.4 [facility] Comment on above: Performed By: #### M DIFF, MG3, HEMDF, BMP3M #### [facility] [address] [place] [address] Glucose [Mass/Vol] 112 mg/dL High 70-100 [facility] Comment on above: Performed By: #### M DIFF, MG3, HEMDF, BMP3M #### [facility] [address] [place] [address] Anion gap [Moles/Vol] 7 mmol/L Normal 3-13 [facility] Comment on above: Performed By: #### M DIFF, MG3, HEMDF, BMP3M #### [facility] [address] [place] [address] CO2 [Moles/Vol] 22 mmol/L Normal 22-30 [facility] Comment on above: Performed By: #### M DIFF, MG3, HEMDF, BMP3M #### [facility] [address] [place] [address] Creatinine [Mass/Vol] 1.09 mg/dL Normal 0.52-1.25 [facility] Comment on above: Performed By: #### M DIFF, MG3, HEMDF, BMP3M #### [facility] [address] [place] [address] GFR/1.73 sq M.predicted among blacks MDRD (S/P/Bld) [Vol rate/Area] 58.4 mL/min/{1.73_m2} Abnormal >60 [facility] Comment on above: Performed By: #### M DIFF, MG3, HEMDF, BMP3M #### [facility] [address] [place] [address] GFR/1.73 sq M.predicted among non-blacks MDRD (S/P/Bld) [Vol rate/Area] 50.4 mL/min/{1.73_m2} Abnormal >60 [facility] Comment on above: Result Comment: KDIG O guidelines provide the following GFR categories: Stage GFR(ml/min/1.73 m2) Terms G1 >=90 Normal or high G2 60-89 Mildly decreased* G3a 45-59 Mildly to moderately decreased G3b 30-44 Moderately to severely decreased G4 15-29 Severely decreased G5 <15 Kidney failure *Relative to young adult level. In the absence of evidence of kidney damage, neither GFR category G1 nor G2 fulfill the criteria for CKD. The CKD-EPI equation is validated in individuals 18 years of age and older. Currently the best equation for estimating glomerular filtration rate (GFR) from serum creatinine in children is the Bedside Moss equation. It is less accurate in patients with extremes of muscle mass, restriction of dietary protein, ingestion of creatine, extra-renal metabolism of creatinine, or treatment with medications that affect renal tubular creatinine secretion. Performed By: #### M DIFF, MG3, HEMDF, BMP3M #### [facility] [address] [place] [address] Urea nitrogen [Mass/Vol] 28 mg/dL High 9-20 [facility] Comment on above: Performed By: #### M DIFF, MG3, HEMDF, BMP3M #### [facility] [address] [place] [address] Chloride [Moles/Vol] 111 mmol/L High 98-107 [facility] Comment on above: Performed By: #### M DIFF, MG3, HEMDF, BMP3M #### [facility] [address] [place] [address] Potassium [Moles/Vol] 3.6 mmol/L Normal 3.5-5.1 [facility] Comment on above: Performed By: #### M DIFF, MG3, HEMDF, BMP3M #### [facility] [address] [place] [address] Sodium [Moles/Vol] 140 mmol/L Normal 135-145 [facility] Comment on above: Performed By: #### M DIFF, MG3, HEMDF, BMP3M #### [facility] [address] [place] [address] Basic Metabolic Panel w/ Ref taiwo to MGon 04-12-2022 Anion gap [Moles/Vol] 7 mmol/L 3 - 13 mmol/L [facility] Work Phone: Calcium [Mass/Vol] 7.9 mg/dL Low 8.4 - 10. 4 mg/dL [facility] Work Phone: Chloride [Moles/Vol] 111 mmol/L High 98 - 10 7 mmol/L [facility] Work Phone: CO2 [Moles/Vol] 22 mmol/L 22 - 30 mmol/L [facility] Work Phone: Creatinine [Mass/Vol] 1.09 mg/dL 0.52 - 1.25 mg/dL [employer] Work Phone: EGFR IF NonAfrican Estonian 50.4 mL/min Abnormal 60 - PINF mL/min [facility] Work Phone: Comment on above: KDIGO guidelines pro vide the following GFR categories: Stage GFR(ml/min/1.73 m2) Terms G1 >=90 Normal or high G2 60-89 Mildly decreased* G3a 45-59 Mildly to moderately decreased G3b 30-44 Moderately to severely decreased G4 15-29 Severely decreased G5 <15 Kidney failure *Relative to young adult level. In the absence of evidence of kidney damage, neither GFR category G1 nor G2 fulfill the criteria for CKD. The CKD-EPI equation is validated in individuals 18 years of age and older. Currently the best equation for estimating glomerular filtration rate (GFR) from serum creatinine in children is the Bedside Moss equation. It is less accurate in patients with extremes of muscle mass, restriction of dietary protein, ingestion of creatine, extra-renal metabolism of creatinine, or treatment with medications that affect renal tubular creatinine secretion. GFR/1.73 sq M.predicted among blacks MDRD (S/P/Bld) [Vol rate/Area] 58.4 mL/min/{1.73_m2} Abnormal 60 - PINF mL/min [employer] Work Phone: Glucose [Mass/Vol] 112 mg/dL High 70 - 100 mg/dL [facility] Work Phone: Interpretation and review of laboratory results Abnormal [facility] Work Phone: [phone] Potassium [Moles/Vol] 3.6 mmol/L 3.5 - 5.1 mmol/L [facility] Work Phone: Sodium [Moles/Vol] 140 mmol/L 135 - 145 mmol/L [facility] Work Phone: Urea nitrogen (BldV) [Mass/Vol] 28 mg/dL High 9 - 20 mg/dL [facility] Work Phone: Test [facility] by [facility], [address] [place] [id number] [place] [address] LAB [facility] Work Phone: CBC with Auto Differentialon 04-12-2022 Absolute Baso # 0.1 10*3/uL 0 - 0.2 10*3/uL [facility] Work Phone: Absolute Neut # 11.3 10*3/uL High 1.8 - 7 10*3/uL [employer] Work Phone: Basophils/100 WBC (Bld) 0.4 % 0 - 2 % S [facility] Work Phone: Eosinophils (Bld) [#/Vol] 0.1 10*3/uL 0 - 0.5 10*3/uL [employer] Work Phone: Eosinophils/100 WBC (Bld) 0.9 % Low 1 - 6 % [employer] Work Phone: Granulocytes/100 WBC (Bld) 78.9 % 40 - 80 % [facility] Work Phone: Hematocrit (Bld) [Volume fraction] 33.4 % Low 35 - 47 % [facility] Work Phone: Hemoglobin (Bld) [Mass/Vol] 10.9 g/dL Low 11.7 - 16 g/dL [facility] Work Phone: Interpretation and review of laboratory results Abnormal [facility] Work Phone: Lymphocytes (Bld) [#/Vol] 1.3 10*3/uL 1 - 4.3 10*3/uL [facility] Work Phone: Lymphocytes/100 WBC (Bld) 8.9 % Low 20 - 40 % [facility] Work Phone: MCH (RBC) [Entitic mass] 29.8 pg 26 - 34 pg [facility] Work Phone: MCHC (RBC) [Mass/Vol] 32.5 % 32 - 36 % [facility] Work Phone: MCV (RBC) [Entitic vol] 91.6 fL 79 - 98 fL S [facility] Work Phone: Monocytes (Bld) [#/Vol] 1.6 10*3/uL High 0 - 0.8 10*3/uL [facility] Work Phone: Monocytes/100 WBC (Bld) 10.9 % High 2 - 10 % S [facility] Work Phone: Platelet distribution width (Bld) [Ratio] 15.0 % High 11.5 - 14.5 % [facility] [facility] Work Phone: Platelet mean volume (Bld) [Entitic vol] 8.6 fL 7.4 - 12.4 fL [facility] Work Phone: Comment on above: MPV is a calculated measurement using platelet volume ratio. Platelets (Bld) [#/Vol] 174 10*3/uL 140 - 440 10*3/uL [facility] Work Phone: RBC (Bld) [#/Vol] 3.65 10*6/uL Low 3.8 - 5.2 10*6/uL [facility] Work Phone: WBC (Bld) [#/Vol] 14.3 10*3/uL High 3.6 - 10.7 10*3/uL [facility] Work Phone: Test Performed by [facility], [address] [place], [place] [id number] [place] [address] LAB [facility] Work Phone: Fluoroscopy modified barium swallow with videoon 04-12-2022 Patient Name: UBALDO ARANGO Fluoroscopy ACCESSION EXAM DATE/TIME PROCEDURE ORDERING PROVIDER [id number] 04/11/2022 12:45 EDT RF Swallowing Function PRICILA MARIE w/ Video CPT code 95063 Reason For Exam (RF Swallowing Function w/ Video) dysphagia Report EXAMINATION: Modified barium swallow with video. COMPARISON: None. REASON FOR STUDY: Dysphagia. TECHNIQUE: Fluoroscopic examination was performed in conjunction with Speech Therapy. Sequences were recorded digitally and spot radiographic images captured. The patient was challenged with thin liquid, nectar, pudding and cracker bits. FLUOROSCOPY TIME: 2.2 minutes. NUMBER OF EXPOSURES: 10 cine loops. FINDINGS: GENERAL: Diminished oral control and delayed initiation of swallowing reflex. Thin Liquid: Oral Phase: Premature pharyngeal spillage to valleculae and piriform sinuses. Pharyngeal Phase: Transient laryngeal penetration. Dows: Oral Phase: Premature pharyngeal spillage to valleculae. Pharyngeal Phase: Transient laryngeal penetration. Pudding: Oral Phase: No significant findings. Pharyngeal Phase: Fluoroscopy Report No significant findings. Cookie: Oral Phase: No significant findings. Pharyngeal Phase: No significant findings. CONCLUSION(S): Abnormal study as manifested by abnormalities with thin liquid and nectar. COMMENT: Please consult Speech Therapist's recommendations. Report Dictated on --- Final --- Dictating Physician: MD COELHO B NELSON Signed Date and Time: 04/12/2022 5:23 pm Signed by: MD COELHO B NELSON Transcribed Date and Time: 04/12/2022 5:24 [facility] EssAmber mendosa MD - 04/12/2022 [id number] ACCESSION EXAM DATE/TIME PROCEDURE ORDERING PROVIDER [id number] 04/11/2022 12:45 EDT RF Swallowing Function 58PRICILA ALVAREZ w/ Video CPT code 17902 Reason For Exam (RF Swallowing Function w/ Video) dysphagia Report EXAMINATION: Modified barium swallow with video. COMPARISON: None. REASON FOR STUDY: Dysphagia. TECHNIQUE: Fluoroscopic examination was performed in conjunction with Speech Therapy. Sequences were recorded digitally and spot radiographic images captured. The patient was challenged with thin liquid, nectar, pudding and cracker bits. FLUOROSCOPY TIME: 2.2 minutes. NUMBER OF EXPOSURES: 10 cine loops. FINDINGS: GENERAL: Diminished oral control and delayed initiation of swallowing reflex. Thin Liquid: Oral Phase: Premature pharyngeal spillage to valleculae and piriform sinuses. Pharyngeal Phase: Transient laryngeal penetration. Dows: Oral Phase: Premature pharyngeal spillage to valleculae. Pharyngeal Phase: Transient laryngeal penetration. Pudding: Oral Phase: No significant findings. Pharyngeal Phase: Fluoroscopy Report No significant findings. Cookie: Oral Phase: No significant findings. Pharyngeal Phase: No significant findings. CONCLUSION(S): Abnormal study as manifested by abnormalities with thin liquid and nectar. COMMENT: Please consult Speech Therapist's recommendations. Report Dictated on --- Final --- Dictating Physician: MD COELHO B NELSON Signed Date and Time: 04/12/2022 5:23 pm Signed by: MD COELHO B NELSON Transcribed Date and Time: 04/12/2022 5:24 [facility] Work Phone: Fluoroscopy modified barium swallow with videoOrdered By: Amber Coelho on 04-12-2022 [facility] Work Phone: Hemogram w/ Autodiffon 04-12 Abs Baso Cnt 0.1 10*3/uL Normal 0.0-0.2 [facility] Comment on above: Performed By: #### M DIFF, MG3, HEMDF, BMP3M #### [facility] [address] [place] [address] Abs Neutrophile Cnt 11.3 10*3/uL High 1.8-7.0 [facility] Comment on above: Performed By: #### M DIFF, MG3, HEMDF, BMP3M #### [facility] [address] [place] [address] Basophils/100 WBC (Bld) 0.4 % Normal 0.0-2.0 [facility] Comment on above: Performed By: #### M DIFF, MG3, HEMDF, BMP3M #### [place] [address] [place] [address] Eosinophils (Bld) [#/Vol] 0.1 10*3/uL Normal 0.0-0.5 [facility] Comment on above: Performed By: #### M DIFF, MG3, HEMDF, BMP3M #### [place] [address] [place] [address] Eosinophils/100 WBC (Bld) 0.9 % Low 1.0-6.0 [facility] Comment on above: Performed By: #### M DIFF, MG3, HEMDF, BMP3M #### [place] [address] [place] [address] Erythrocyte distribution width (RBC) [Ratio] 15.0 % High 11.5-14.5 [facility] Comment on above: Performed By: #### M DIFF, MG3, HEMDF, BMP3M #### [place] [address] [place] [address] Granulocytes/100 WBC (Bld) 78.9 % Normal 40.0-80.0 [facility] Comment on above: Performed By: #### M DIFF, MG3, HEMDF, BMP3M #### [facility] [address] [place] [address] Hematocrit (Bld) [Volume fraction] 33.4 % Low 35.0-47.0 [facility] Comment on above: Performed By: #### M DIFF, MG3, HEMDF, BMP3M #### [place] [address] [place] [address] Hemoglobin (Bld) [Mass/Vol] 10.9 g/dL Low 11.7-16.0 [facility] Comment on above: Performed By: #### M DIFF, MG3, HEMDF, BMP3M #### [facility] [address] [place] [address] Lymphocytes (Bld) [#/Vol] 1.3 10*3/uL Normal 1.0-4.3 [facility] Comment on above: Performed By: #### M DIFF, MG3, HEMDF, BMP3M #### [facility] [address] [place] [address] Lymphocytes/100 WBC (Bld) 8.9 % Low 20.0-40.0 [facility] Comment on above: Performed By: #### M DIFF, MG3, HEMDF, BMP3M #### [facility] [address] [place] [address] MCH (RBC) [Entitic mass] 29.8 pg Normal 26.0-34.0 [facility] Comment on above: Performed By: #### M DIFF, MG3, HEMDF, BMP3M #### [facility] [address] [place] [address] MCHC 32.5 % Normal 32.0-36.0 [facility] Comment on above: Performed By: #### M DIFF, MG3, HEMDF, BMP3M #### [facility] [address] [place] [address] MCV (RBC) [Entitic vol] 91.6 fL Normal 79.0-98.0 [facility] Comment on above: Performed By: #### M DIFF, MG3, HEMDF, BMP3M #### [facility] [address] [place] [address] Monocytes (Bld) [#/Vol] 1.6 10*3/uL High 0.0-0.8 [facility] Comment on above: Performed By: #### M DIFF, MG3, HEMDF, BMP3M #### [facility] [address] [place] [address] Monocytes/100 WBC (Bld) 10.9 % High 2.0-10.0 [facility] Comment on above: Performed By: #### M DIFF, MG3, HEMDF, BMP3M #### [facility] [address] [place] [address] Platelet mean volume (Bld) [Entitic vol] 8.6 fL Normal 7.4-12.4 [facility] Comment on above: Result Comment: MPV is a calculated measurement using platelet volume ratio. Performed By: #### M DIFF, MG3, HEMDF, BMP3M #### [facility] [address] [place] [address] Platelets (Bld) [#/Vol] 174 10*3/uL Normal 140-440 [facility] Comment on above: Performed By: #### M DIFF, MG3, HEMDF, BMP3M #### [facility] [address] [place] [address] RBC (Bld) [#/Vol] 3.65 10*6/uL Low 3.80-5.20 [facility] Comment on above: Performed By: #### M DIFF, MG3, HEMDF, BMP3M #### [facility] [address] [place] [address] WBC (Bld) [#/Vol] 14.3 10*3/uL High 3.6-10.7 [facility] Comment on above: Performed By: #### M DIFF, MG3, HEMDF, BMP3M #### [facility] [address] [place] [address] Procalcitoninon 04-12-2022 Procalcitonin 0.76 ng/mL High 0.00-0.09 [facility] Comment on above: Performed By: #### M DIFF, MG3, HEMDF, BMP3M #### [facility] [address] [place] [address] Interpretation See Below [facility] Work Phone: Comment on above: PCT <0.50 = Low risk of severe sepsis and/or septic shock. PCT >2.00 = High risk of severe sepsis and/or septic shock. Interpretation and review of laboratory results Abnormal [facility] Work Phone: Procalcitonin 0.76 ng/mL High 0 - 0.09 ng/mL [facility] Work Phone: [facility], [address] [place] [address] [facility] LAB [facility] Work Phone: RBC MORPHOLOGYon 04-12-2022 Anisocytosis Ql (Bld) Slight [facility] Work Phone: Caroline Cells Slight [facility] Work Phone: Hypochromia Slight [facility] Work Phone: Ovalocytes Slight [facility] Work Phone: Polychromasia Slight [facility] Work Phone: RBC (Bld) [#/Vol] ABNORMAL [facility] Work Phone: Test [facility] by [facility], [address] [place], [place] [address] [facility] LAB [facility] Work Phone: RBC Morphologyon 04-12-2022 Anisocytosis Ql (Bld) Slight Normal [facility] Comment on above: Performed By: #### M DIFF, MG3, HEMDF, BMP3M #### [facility] [address] [place] [address] Ronald Cells Slight Normal [facility] Comment on above: Performed By: #### M DIFF, MG3, HEMDF, BMP3M #### [facility] [address] [place] [address] Hypochromia Slight Normal [facility] Comment on above: Performed By: #### M DIFF, MG3, HEMDF, BMP3M #### [facility] [address] [place] [address] Ovalocytes Slight Normal [facility] Comment on above: Performed By: #### M DIFF, MG3, HEMDF, BMP3M #### [facility] [address] [place] [address] Polychromasia Slight Normal [facility] Comment on above: Performed By: #### M DIFF, MG3, HEMDF, BMP3M #### [facility] [address] [place] [address] RBC morphology finding Nom (Bld) ABNORMAL Normal [facility] Comment on above: Performed By: #### M DIFF, MG3, HEMDF, BMP3M #### [facility] [address] [place] [address] Vancomycinon 04-12-2022 Vancomycin 8.5 ug/mL Low 15.0-20.0 [facility] Comment on above: Result Comment: . Performed By: #### M DIFF, BMP3M, HEMDF #### [facility] [address] [place] [address] Vancomycin Level, Randomon 0 04-12-2022 Interpretation and review of laboratory results Abnormal [facility] Vancomycin 8.5 ug/mL Low 15 - 20 ug/mL [facility] Comment on above: . Test Performed by [facility], [address] [place], [address] LAB [facility] Add On Lab Teston 04-11-2022 Add On Accepted [facility] Work Phone: Comment on above: Specimen available & acceptable for analysis. Test Performed by [facility], [address] [place] [address] Added TROPN see [id number] [facility] 04/11/2022 15:35 [facility] Work Phone: Add On Accepted [facility] Comment on above: Specimen available & acceptable for analysis. Test Performed by [facility], [address] [place], [address] LAB [facility] Add on test from HISon 04-11 Add on test from HIS Accepted Normal [facility] Comment on above: Order Comment: Added TROPN see [id number] 04/11/2022 15:35 Result Comment: Spec imen available & acceptable for analysis. Performed By: #### M DIFF, BMP3M, HEMDF #### [facility] [address] [place] [address] Add on test from HIS Accepted Normal [facility] Comment on above: Result Comment: Spec imen available & acceptable for analysis. Performed By: #### M DIFF, BMP3M, HEMDF #### [facility] [address] [place] [address] Basic Metabolic Panelon 09-0 -2021 Anion gap [Moles/Vol] 6 mmol/L Normal 3-13 [facility] Comment on above: Performed By: #### M DIFF, MG3, HEMDF, BMP3M #### [facility] [address] [place] [address] Calcium [Mass/Vol] 7.7 mg/dL Low 8.4-10.4 [facility] Comment on above: Performed By: #### M DIFF, MG3, HEMDF, BMP3M #### [facility] [address] [place] [address] CO2 [Moles/Vol] 23 mmol/L Normal 22-30 [facility] Comment on above: Performed By: #### M DIFF, MG3, HEMDF, BMP3M #### [facility] [address] [place] [address] Glucose [Mass/Vol] 135 mg/dL High 70-100 [facility] Comment on above: Performed By: #### M DIFF, MG3, HEMDF, BMP3M #### [facility] [address] [place] [address] Urea nitrogen [Mass/Vol] 29 mg/dL High 9-20 [facility] Comment on above: Performed By: #### M DIFF, MG3, HEMDF, BMP3M #### [facility] [address] [place] [address] Creatinine [Mass/Vol] 1.34 mg/dL High 0.52-1.25 [facility] Comment on above: Performed By: #### M DIFF, MG3, HEMDF, BMP3M #### [facility] [address] [place] [address] GFR/1.73 sq M.predicted among blacks MDRD (S/P/Bld) [Vol rate/Area] 45.5 mL/min/{1.73_m2} Abnormal >60 [facility] Comment on above: Performed By: #### M DIFF, MG3, HEMDF, BMP3M #### [facility] [address] [place] [address] GFR/1.73 sq M.predicted among non-blacks MDRD (S/P/Bld) [Vol rate/Area] 39.3 mL/min/{1.73_m2} Abnormal >60 [facility] Comment on above: Result Comment: KDIG O guidelines provide the following GFR categories: Stage GFR(ml/min/1.73 m2) Terms G1 >=90 Normal or high G2 60-89 Mildly decreased* G3a 45-59 Mildly to moderately decreased G3b 30-44 Moderately to severely decreased G4 15-29 Severely decreased G5 <15 Kidney failure *Relative to young adult level. In the absence of evidence of kidney damage, neither GFR category G1 nor G2 fulfill the criteria for CKD. The CKD-EPI equation is validated in individuals 18 years of age and older. Currently the best equation for estimating glomerular filtration rate (GFR) from serum creatinine in children is the Bedside Moss equation. It is less accurate in patients with extremes of muscle mass, restriction of dietary protein, ingestion of creatine, extra-renal metabolism of creatinine, or treatment with medications that affect renal tubular creatinine secretion. Performed By: #### M DIFF, MG3, HEMDF, BMP3M #### [facility] [address] [place] [address] Chloride [Moles/Vol] 107 mmol/L Normal 98-107 [facility] Comment on above: Performed By: #### M DIFF, MG3, HEMDF, BMP3M #### [facility] [address] [place] [address] Potassium [Moles/Vol] 3.3 mmol/L Low 3.5-5.1 [facility] Comment on above: Performed By: #### M DIFF, MG3, HEMDF, BMP3M #### [facility] [address] [place] [address] Sodium [Moles/Vol] 137 mmol/L Normal 135-145 [facility] Comment on above: Performed By: #### M DIFF, MG3, HEMDF, BMP3M #### [facility] [address] [place] [address] Basic Metabolic Panel w/ Ref taiwo to MGon 04-11-2022 Anion gap [Moles/Vol] 6 mmol/L 3 - 13 mmol/L [facility] Work Phone: Calcium [Mass/Vol] 7.7 mg/dL Low 8.4 - 10. 4 mg/dL [facility] Work Phone: Chloride [Moles/Vol] 107 mmol/L 98 - 10 7 mmol/L [facility] Work Phone: CO2 [Moles/Vol] 23 mmol/L 22 - 30 mmol/L [facility] Work Phone: Creatinine [Mass/Vol] 1.34 mg/dL High 0.52 - 1.25 mg/dL [facility] Work Phone: EGFR IF NonAfrican Estonian 39.3 mL/min Abnormal 60 - PINF mL/min [facility] Work Phone: Comment on above: KDIGO guidelines pro vide the following GFR categories: Stage GFR(ml/min/1.73 m2) Terms G1 >=90 Normal or high G2 60-89 Mildly decreased* G3a 45-59 Mildly to moderately decreased G3b 30-44 Moderately to severely decreased G4 15-29 Severely decreased G5 <15 Kidney failure *Relative to young adult level. In the absence of evidence of kidney damage, neither GFR category G1 nor G2 fulfill the criteria for CKD. The CKD-EPI equation is validated in individuals 18 years of age and older. Currently the best equation for estimating glomerular filtration rate (GFR) from serum creatinine in children is the Bedside Moss equation. It is less accurate in patients with extremes of muscle mass, restriction of dietary protein, ingestion of creatine, extra-renal metabolism of creatinine, or treatment with medications that affect renal tubular creatinine secretion. GFR/1.73 sq M.predicted among blacks MDRD (S/P/Bld) [Vol rate/Area] 45.5 mL/min/{1.73_m2} Abnormal 60 - PINF mL/min [facility] Work Phone: Glucose [Mass/Vol] 135 mg/dL High 70 - 100 mg/dL [facility] Work Phone: Interpretation and review of laboratory results Abnormal [facility] Work Phone: Potassium [Moles/Vol] 3.3 mmol/L Low 3.5 - 5.1 mmol/L [facility] Work Phone: Sodium [Moles/Vol] 137 mmol/L 135 - 145 mmol/L [facility] Work Phone: Urea nitrogen (BldV) [Mass/Vol] 29 mg/dL High 9 - 20 mg/dL [facility] Work Phone: Test Performed by [facility], [address] [place], [place] [id number] [place] [address] LAB [facility] Work Phone: CBC with Auto DifferentialOr dered By: Jocelynn Mcleod on 04-11-2022 Absolute Baso # 0.1 10*3/uL 0 - 0.2 10*3/uL [facility] Absolute Neut # 15.3 10*3/uL High 1.8 - 7 10*3/uL [facility] Basophils/100 WBC (Bld) 0.3 % 0 - 2 % [facility] Eosinophils (Bld) [#/Vol] 0.0 10*3/uL 0 - 0.5 10*3/uL [facility] Eosinophils/100 WBC (Bld) 0.1 % Low 1 - 6 % [facility] Granulocytes/100 WBC (Bld) 83.9 % High 40 - 80 % [facility] Hematocrit (Bld) [Volume fraction] 33.7 % Low 35 - 47 % [facility] Hemoglobin (Bld) [Mass/Vol] 11.2 g/dL Low 11.7 - 16 g/dL [facility] Interpretation and review of laboratory results Abnormal [facility] Lymphocytes (Bld) [#/Vol] 1.1 10*3/uL 1 - 4.3 10*3/uL [facility] Lymphocytes/100 WBC (Bld) 5.9 % Low 20 - 40 % [facility] MCH (RBC) [Entitic mass] 30.3 pg 26 - 34 pg [facility] MCHC (RBC) [Mass/Vol] 33.2 % 32 - 36 % [facility] MCV (RBC) [Entitic vol] 91.5 fL 79 - 98 fL [facility] Monocytes (Bld) [#/Vol] 1.8 10*3/uL High 0 - 0.8 10*3/uL [facility] Monocytes/100 WBC (Bld) 9.8 % 2 - 10 % [facility] Platelet distribution width (Bld) [Ratio] 15.1 % High 11.5 - 14.5 % [facility] Platelet mean volume (Bld) [Entitic vol] 8.4 fL 7.4 - 12.4 fL [facility] Comment on above: MPV is a calculated measurement using platelet volume ratio. Platelets (Bld) [#/Vol] 170 10*3/uL 140 - 440 10*3/uL [facility] RBC (Bld) [#/Vol] 3.68 10*6/uL Low 3.8 - 5.2 10*6/uL [facility] WBC (Bld) [#/Vol] 18.2 10*3/uL High 3.6 - 10.7 10*3/uL [facility] CBC with Auto Differentialon 04-11-2022 Test Performed by [facility], [address] [place] [id number] [place] [address] LAB COVID and Resp PCR Panelon 0 04-11-2022 SARS-CoV-2 (COVID-19) RNA VICKI+probe Ql (Unsp spec) COVID and Resp PCR Panel --> Status: F NEGATIVE: No targets were detected by the [employer] Upper Respiratory Pathogens PCR Panel. _ Expected Result: Not Detected The [employer] Upper Respiratory Pathogens PCR Panel can detect the following targets: SARS-CoV-2, Adenovirus, Coronavirus 229E, Coronavirus HKU1, Coronavirus NL63, Coronavirus OC43, Human Metapneumovirus, Human Rhinovirus/Enterovi elma, Influenza A, Influenza B, Parainfluenza Virus 1, Parainfluenza Virus 2, Parainfluenza Virus 3, Parainfluenza Virus 4, Respiratory Syncytial Virus, Bordetella pertussis, Bordetella parapertussis, Chlamydia pneumoniae, Mycoplasma pneumoniae. Method: Real-time PCR. Respiratory Pathogens PCR Panel. _ Expected Result: Not Detected The [employer] Upper Respiratory Pathogens PCR Panel can detect the following targets: SARS-CoV-2, Adenovirus, Coronavirus 229E, Coronavirus HKU1, Coronavirus NL63, Coronavirus OC43, Human Metapneumovirus, Human Rhinovirus/Enterovi elma, Influenza A, Influenza B, Parainfluenza Virus 1, Parainfluenza Virus 2, Parainfluenza Virus 3, Parainfluenza Virus 4, Respiratory Syncytial Virus, Bordetella pertussis, Bordetella parapertussis, Chlamydia pneumoniae, Mycoplasma pneumoniae. Method: Real-time PCR. Normal [facility] Comment on above: Performed By: #### M DIFF, BMP3M, HEMDF #### [facility] [address] [place] [address] Fluoroscopy modified barium swallow with videoon 04-11-2022 Radiology Study observation (narrative) [facility] Work Phone: Hemogram w/ Autodiffon 04-11 Abs Baso Cnt 0.1 10*3/uL Normal 0.0-0.2 [facility] Comment on above: Performed By: #### M DIFF, MG3, HEMDF, BMP3M #### [facility] [address] [place] [address] Abs Neutrophile Cnt 15.3 10*3/uL High 1.8-7.0 [facility] Comment on above: Performed By: #### M DIFF, MG3, HEMDF, BMP3M #### [facility] [address] [place] [address] Basophils/100 WBC (Bld) 0.3 % Normal 0.0-2.0 [facility] Comment on above: Performed By: #### M DIFF, MG3, HEMDF, BMP3M #### [facility] [address] [place] [address] Eosinophils (Bld) [#/Vol] 0.0 10*3/uL Normal 0.0-0.5 [facility] Comment on above: Performed By: #### M DIFF, MG3, HEMDF, BMP3M #### [facility] [address] [place] [address] Eosinophils/100 WBC (Bld) 0.1 % Low 1.0-6.0 [facility] Comment on above: Performed By: #### M DIFF, MG3, HEMDF, BMP3M #### [facility] [address] [place] [address] Erythrocyte distribution width (RBC) [Ratio] 15.1 % High 11.5-14.5 [facility] Comment on above: Performed By: #### M DIFF, MG3, HEMDF, BMP3M #### [facility] [address] [place] [address] Granulocytes/100 WBC (Bld) 83.9 % High 40.0-80.0 [facility] Comment on above: Performed By: #### M DIFF, MG3, HEMDF, BMP3M #### [facility] [address] [place] [address] Hematocrit (Bld) [Volume fraction] 33.7 % Low 35.0-47.0 [facility] Comment on above: Performed By: #### M DIFF, MG3, HEMDF, BMP3M #### [facility] [address] [place] [address] Hemoglobin (Bld) [Mass/Vol] 11.2 g/dL Low 11.7-16.0 [facility] Comment on above: Performed By: #### M DIFF, MG3, HEMDF, BMP3M #### [facility] [address] [place] [address] Lymphocytes (Bld) [#/Vol] 1.1 10*3/uL Normal 1.0-4.3 [facility] Comment on above: Performed By: #### M DIFF, MG3, HEMDF, BMP3M #### [facility] [address] [place] [address] Lymphocytes/100 WBC (Bld) 5.9 % Low 20.0-40.0 [facility] Comment on above: Performed By: #### M DIFF, MG3, HEMDF, BMP3M #### [facility] [address] [place] [address] MCH (RBC) [Entitic mass] 30.3 pg Normal 26.0-34.0 [facility] Comment on above: Performed By: #### M DIFF, MG3, HEMDF, BMP3M #### [facility] [address] [place] [address] MCHC 33.2 % Normal 32.0-36.0 [facility] Comment on above: Performed By: #### M DIFF, MG3, HEMDF, BMP3M #### [facility] [address] [place] [address] MCV (RBC) [Entitic vol] 91.5 fL Normal 79.0-98.0 [facility] Comment on above: Performed By: #### M DIFF, MG3, HEMDF, BMP3M #### [facility] [address] [place] [address] Monocytes (Bld) [#/Vol] 1.8 10*3/uL High 0.0-0.8 [facility] Comment on above: Performed By: #### M DIFF, MG3, HEMDF, BMP3M #### [facility] [address] [place] [address] Monocytes/100 WBC (Bld) 9.8 % Normal 2.0-10.0 [facility] Comment on above: Performed By: #### M DIFF, MG3, HEMDF, BMP3M #### [facility] [address] [place] [address] Platelet mean volume (Bld) [Entitic vol] 8.4 fL Normal 7.4-12.4 [facility] Comment on above: Result Comment: MPV is a calculated measurement using platelet volume ratio. Performed By: #### M DIFF, MG3, HEMDF, BMP3M #### [facility] [address] [place] [address] Platelets (Bld) [#/Vol] 170 10*3/uL Normal 140-440 [facility] Comment on above: Performed By: #### M DIFF, MG3, HEMDF, BMP3M #### [facility] [address] [place] [address] RBC (Bld) [#/Vol] 3.68 10*6/uL Low 3.80-5.20 [facility] Comment on above: Performed By: #### M DIFF, MG3, HEMDF, BMP3M #### [facility] [address] [place] [address] WBC (Bld) [#/Vol] 18.2 10*3/uL High 3.6-10.7 [facility] Comment on above: Performed By: #### M DIFF, MG3, HEMDF, BMP3M #### [facility] [address] [place] [address] LEGIONELLA AG, URINEon 04-11 LEGIONELLA AG, URINE LEGIONELLA AG, URINE --> Status: F Legionella antigen NOT DETECTED. Normal [facility] Comment on above: Performed By: #### M DIFF, BMP3M, HEMDF #### [facility] [address] [place] [address] Lactate, Sepsison 04-11-2022 Lactate [Moles/Vol] 0.9 mmol/L 0.7 - 2 mmol/L [facility] Test Performed by [facility], [address] [place] [address] [facility] Lactic Acid, Sepsison 2021 Lactate [Moles/Vol] 0.9 mmol/L Normal 0.7-2.0 [facility] Comment on above: Performed By: #### M DIFF, MG3, HEMDF, BMP3M #### [facility] [address] [place] [address] Legionella Antigen, Urineon 04-11-2022 LEGIONELLA ANTIGEN Not detected [facility] Work Phone: Magnesiumon 04-11-2022 Magnesium [Mass/Vol] 1.8 mg/dL Normal 1.6-2.3 [facility] Comment on above: Performed By: #### M DIFF, MG3, HEMDF, BMP3M #### [facility] [address] [place] [address] Magnesium [Mass/Vol] 1.8 mg/dL 1.6 - 2 .3 mg/dL [facility] Work Phone: Test Performed by [facility], [address] [place] [address] [facility] Work Phone: No Panel Informationon 04-11 Test Performed by [facility], [address] [facility] [place] [place] [address] [facility] Work Phone: Procalcitoninon 04-11-2022 Interpretation See Below Normal [facility] Comment on above: Result Comment: PCT <0.50 = Low risk of severe sepsis and/or septic shock. PCT >2.00 = High risk of severe sepsis and/or septic shock. Performed By: #### M DIFF, MG3, HEMDF, BMP3M #### [facility] [address] [place] [address] RBC Morphologyon 04-11-2022 Anisocytosis Ql (Bld) Slight Normal [facility] Comment on above: Performed By: #### M DIFF, MG3, HEMDF, BMP3M #### [facility] [address] [place] [address] RBC morphology finding Nom (Bld) ABNORMAL Normal [facility] Comment on above: Performed By: #### M DIFF, MG3, HEMDF, BMP3M #### [facility] [address] [place] [address] RF Swallowing Function w/ Vi deoon 04-11-2022 RF Swallowing Function w/ Video Patient Name: UBALDO ARANGO Fluoroscopy ACCESSION EXAM DATE/TIME PROCEDURE ORDERING PROVIDER [id number] 04/11/2022 12:45 EDT RF Swallowing Function PRICILA MARIE w/ Video CPT code 76870 Reason For Exam (RF Swallowing Function w/ Video) dysphagia Report EXAMINATION: Modified barium swallow with video. COMPARISON: None. REASON FOR STUDY: Dysphagia. TECHNIQUE: Fluoroscopic examination was performed in conjunction with Speech Therapy. Sequences were recorded digitally and spot radiographic images captured. The patient was challenged with thin liquid, nectar, pudding and cracker bits. FLUOROSCOPY TIME: 2.2 minutes. NUMBER OF EXPOSURES: 10 cine loops. FINDINGS: GENERAL: Diminished oral control and delayed initiation of swallowing reflex. Thin Liquid: Oral Phase: Premature pharyngeal spillage to valleculae and piriform sinuses. Pharyngeal Phase: Transient laryngeal penetration. Dows: Oral Phase: Premature pharyngeal spillage to valleculae. Pharyngeal Phase: Transient laryngeal penetration. Pudding: Oral Phase: No significant findings. Pharyngeal Phase: Fluoroscopy Report No significant findings. Cookie: Oral Phase: No significant findings. Pharyngeal Phase: No significant findings. CONCLUSION(S): Abnormal study as manifested by abnormalities with thin liquid and nectar. COMMENT: Please consult Speech Therapist's recommendations. Report Dictated on Final Dictating Physician: MD COELHO B NELSON Signed Date and Time: 04/12/2022 5:23 pm Signed by: MD COELHO B NELSON Transcribed Date and Time: 04/12/2022 5:24 Normal [facility] Respiratory Panel, Molecular , with COVID-19 (Restricted: peds pts or suitable admitted adults)on 04-11-2022 Respiratory Panel Molecular, with COVID NEGATIVE: No targets were detected by the [employer] Upper Respiratory Pathogens PCR Panel. _ Expected Result: Not Detected The [employer] Upper Respiratory Pathogens PCR Panel can detect the following targets: SARS-CoV-2, Adenovirus, Coronavirus 229E, Coronavirus HKU1, Coronavirus NL63, Coronavirus OC43, Human Metapneumovirus, Human Rhinovirus/Enterovi elma, Influenza A, Influenza B, Parainfluenza Virus 1, Parainfluenza Virus 2, Parainfluenza Virus 3, Parainfluenza Virus 4, Respiratory Syncytial Virus, Bordetella pertussis, Bordetella parapertussis, Chlamydia pneumoniae, Mycoplasma pneumoniae. Method: Real-time PCR. [facility] Test Performed by [address] [facility] PLANT CONTROL OPERATOR Modified Barium Swallow Studyon 04-11-2022 PLANT CONTROL OPERATOR Modified Barium Swallow Study Patient Name: UBALDO ARANGO Fluoroscopy ACCESSION EXAM DATE/TIME PROCEDURE ORDERING PROVIDER [id number] 04/11/2022 12:45 EDT PLANT CONTROL OPERATOR Modified Barium PRICILA MARIE Swallow Study Reason For Exam (PLANT CONTROL OPERATOR Modified Barium Swallow Study) Sepsis, unspecified organism Report Patient Date of : 1950 Date: 04/11/2022 3:24 PM EDT Onset Date: 04/10/22 Diagnosis: Fever, UTI, pneumonia Reason for Referral: Patient with increased coughing and throat clearing at bedside, further assess oral pharyngeal function, right middle lobe pneumonia? PMHX: Seizure disorder, schizoaffective, GERD, anoxia, TBI, limited expression, hearing loss Oxygen Requirement: 2 L nasal cannula Current Diet: NPO Thickness of liquid: NPO except sips with meds Textures tested: Varibar pudding, sully cracker pieces coated with Varibar honey Varibar Dows presented via cup. Varibar Thin Liquid presented via cup. Patient position: Seated/Lateral Subjective: Patient to fluoroscopy suite via stretcher. Patient is nonverbal, make some sounds. Additional positioning effort due to shoulder occlusion. CURRENT TEST RESULTS: Oral Phase: Patient with spillage to the vallecula and piriform with drinks of thin liquids, to the vallecula with nectar thick liquids. Patient demonstrates mild lingual weakness for control as well as tongue base coating with thin liquids. Pharyngeal Phase: Mild vallecular residuals with nectar intermittently with transient vestibule entry without staining of the back of the epiglottis. Very small cup drinks of thin liquids taken without observable deficits. Mild increase volume of cup drink resulted in undercoating of the vocal cords as well as posterior tracheal wall staining; patient did have strong cough response. Mild vallecular residuals and lateral wall residuals with large cup drink of nectar thick liquids that cleared with subsequent swallows. No pharyngeal residuals observed with single bite of pudding or pieces of cracker coated honey thick liquids. Pharyngeal Weakness/Impairment : Decreased timing no clear pharyngeal deficits Fluoroscopy Report identified. Esophageal Phase: WFL for the scope of this evaluation, esophagus not clearly visualized due to shoulder occlusion General Impressions: Diet Recommendations / Strategies: Minced and moist with mildly thick liquids. Present via small cup-single drinks. Slow rate watch for swallows between bites/drinks. Recommended Consultations / Follow Up: Speech therapy follow up for tolerance. Goals: Patient will tolerate recommended diet without evidence of dysphagia or airway penetration. Patient will implement swallowing strategies with minimal cues. Prior MBS date and results: Not applicable Radiologist: Dr. Amber Coelho MD Report Dictated on Final Dictating Physician: FABBY LAMAR, KHLOE/PLANT CONTROL OPERATOR, RAQUEL Signed Date and Time: 04/11/2022 3:43 pm Signed by: FABBY LAMAR, KHLOE/RAQUEL ALLEN Transcribed Date and Time: 04/11/2022 3:44 Normal [facility] PLANT CONTROL OPERATOR video swallowon 04-11-20 [id number] Fluoroscopy ACCESSION EXAM DATE/TIME PROCEDURE ORDERING PROVIDER [id number] 04/11/2022 12:45 EDT PLANT CONTROL OPERATOR Modified Barium 5813 -PRICILA MCLEOD Swallow Study Reason For Exam (PLANT CONTROL OPERATOR Modified Barium Swallow Study) Sepsis, unspecified organism Report Patient Date of : 1950 Date: 04/11/2022 3:24 PM EDT Onset Date: 04/10/22 Diagnosis: Fever, UTI, pneumonia Reason for Referral: Patient with increased coughing and throat clearing at bedside, further assess oral pharyngeal function, right middle lobe pneumonia? PMHX: Seizure disorder, schizoaffective, GERD, anoxia, TBI, limited expression, hearing loss Oxygen Requirement: 2 L nasal cannula Current Diet: NPO Thickness of liquid: NPO except sips with meds Textures tested: Varibar pudding, sully cracker pieces coated with Varibar honey Varibar Dows presented via cup. Varibar Thin Liquid presented via cup. Patient position: Seated/Lateral Subjective: Patient to fluoroscopy suite via stretcher. Patient is nonverbal, make some sounds. Additional positioning effort due to shoulder occlusion. CURRENT TEST RESULTS: Oral Phase: Patient with spillage to the vallecula and piriform with drinks of thin liquids, to the vallecula with nectar thick liquids. Patient demonstrates mild lingual weakness for control as well as tongue base coating with thin liquids. Pharyngeal Phase: Mild vallecular residuals with nectar intermittently with transient vestibule entry without staining of the back of the epiglottis. Very small cup drinks of thin liquids taken without observable deficits. Mild increase volume of cup drink resulted in undercoating of the vocal cords as well as posterior tracheal wall staining; patient did have strong cough response. Mild vallecular residuals and lateral wall residuals with large cup drink of nectar thick liquids that cleared with subsequent swallows. No pharyngeal residuals observed with single bite of pudding or pieces of cracker coated honey thick liquids. Pharyngeal Weakness/Impairment : Decreased timing no clear pharyngeal deficits Fluoroscopy Report identified. Esophageal Phase: WFL for the scope of this evaluation, esophagus not clearly visualized due to shoulder occlusion General Impressions: Diet Recommendations / Strategies: Minced and moist with mildly thick liquids. Present via small cup-single drinks. Slow rate watch for swallows between bites/drinks. Recommended Consultations / Follow Up: Speech therapy follow up for tolerance. Goals: Patient will tolerate recommended diet without evidence of dysphagia or airway penetration. Patient will implement swallowing strategies with minimal cues. Prior MBS date and results: Not applicable Radiologist: Dr. Amber Coelho MD Report Dictated on --- Final --- Dictating Physician: FABBY LAMAR, KHLOE/PLANT CONTROL OPERATORRAQUEL Signed Date and Time: 04/11/2022 3:43 pm Signed by: FABBY LAMAR, KHLOE/RAQUEL ALLEN Transcribed Date and Time: 04/11/2022 3:44 [facility]UN[facility] Result, Unknown Provider - 04/11/2022 Patient Name: UBALDO ARANGO Fluoroscopy ACCESSION EXAM DATE/TIME PROCEDURE ORDERING PROVIDER [id number] 04/11/2022 12:45 EDT PLANT CONTROL OPERATOR Modified Barium PRICILA MARIE Swallow Study Reason For Exam (PLANT CONTROL OPERATOR Modified Barium Swallow Study) Sepsis, unspecified organism Report Patient Date of : 1950 Date: 04/11/2022 3:24 PM EDT Onset Date: 04/10/22 Diagnosis: Fever, UTI, pneumonia Reason for Referral: Patient with increased coughing and throat clearing at bedside, further assess oral pharyngeal function, right middle lobe pneumonia? PMHX: Seizure disorder, schizoaffective, GERD, anoxia, TBI, limited expression, hearing loss Oxygen Requirement: 2 L nasal cannula Current Diet: NPO Thickness of liquid: NPO except sips with meds Textures tested: Varibar pudding, sully cracker pieces coated with Varibar honey Varibar Dows presented via cup. Varibar Thin Liquid presented via cup. Patient position: Seated/Lateral Subjective: Patient to fluoroscopy suite via stretcher. Patient is nonverbal, make some sounds. Additional positioning effort due to shoulder occlusion. CURRENT TEST RESULTS: Oral Phase: Patient with spillage to the vallecula and piriform with drinks of thin liquids, to the vallecula with nectar thick liquids. Patient demonstrates mild lingual weakness for control as well as tongue base coating with thin liquids. Pharyngeal Phase: Mild vallecular residuals with nectar intermittently with transient vestibule entry without staining of the back of the epiglottis. Very small cup drinks of thin liquids taken without observable deficits. Mild increase volume of cup drink resulted in undercoating of the vocal cords as well as posterior tracheal wall staining; patient did have strong cough response. Mild vallecular residuals and lateral wall residuals with large cup drink of nectar thick liquids that cleared with subsequent swallows. No pharyngeal residuals observed with single bite of pudding or pieces of cracker coated honey thick liquids. Pharyngeal Weakness/Impairment : Decreased timing no clear pharyngeal deficits Fluoroscopy Report identified. Esophageal Phase: WFL for the scope of this evaluation, esophagus not clearly visualized due to shoulder occlusion General Impressions: Diet Recommendations / Strategies: Minced and moist with mildly thick liquids. Present via small cup-single drinks. Slow rate watch for swallows between bites/drinks. Recommended Consultations / Follow Up: Speech therapy follow up for tolerance. Goals: Patient will tolerate recommended diet without evidence of dysphagia or airway penetration. Patient will implement swallowing strategies with minimal cues. Prior MBS date and results: Not applicable Radiologist: Dr. Amber Coelho MD Report Dictated on --- Final --- Dictating Physician: FABBY LAMAR, KHLOE/PLANT CONTROL OPERATORRAQUEL Signed Date and Time: 04/11/2022 3:43 pm Signed by: FABBY LAMAR, KHLOE/PLANT CONTROL OPERATORRAQUEL Transcribed Date and Time: 04/11/2022 3:44 [facility] Work Phone: PLANT CONTROL OPERATOR video swallowOrdered By: Unknown Result on 04-11-2022 [facility] STREP PNEUMO ANTIGEN, URINEo n 04-11-2022 STREP PNEUMO ANTIGEN, URINE STREP PNEUMO ANTIGEN, URINE --> Status: F Strep pneumo antigen NOT DETECTED. [facility] Comment on above: Performed By: #### M DIFF, BMP3M, HEMDF #### [employer] [address] [place] [address] STREP PNEUMONIAE ANTIGENon 0 04-11-2022 STREP PNEUMONIAE ANTIGEN, URINE Not detected [employer] Work Phone: Troponinon 04-11-2022 Troponin I.cardiac [Mass/Vol] 0.027 ng/mL 0 - 0.034 ng/mL [employer] Work Phone: Comment on above: . Test Performed by [facility], [address] [place], [place] [address] [facility] Work Phone: Troponin Ion 04-11-2022 Troponin I.cardiac [Mass/Vol] 0.027 ng/mL Normal 0.000-0.034 [facility] Comment on above: Result Comment: . Performed By: #### M DIFF, MG3, HEMDF, BMP3M #### [facility] [address] [place] [address] Basic Metabolic Panelon 09-0 Anion gap [Moles/Vol] 8 mmol/L Normal 3-13 [facility] Comment on above: Performed By: #### M DIFF, BMP3M, HEMDF #### [facility] [address] [place] [address] Calcium [Mass/Vol] 8.7 mg/dL Normal 8.4-10.4 [facility] Comment on above: Performed By: #### M DIFF, BMP3M, HEMDF #### [facility] [address] [place] [address] CO2 [Moles/Vol] 27 mmol/L Normal 22-30 [facility] Comment on above: Performed By: #### M DIFF, BMP3M, HEMDF #### [facility] [address] [place] [address] Creatinine [Mass/Vol] 1.40 mg/dL High 0.52-1.25 [facility] Comment on above: Performed By: #### M DIFF, BMP3M, HEMDF #### [facility] [address] [place] [address] GFR/1.73 sq M.predicted among blacks MDRD (S/P/Bld) [Vol rate/Area] 43.2 mL/min/{1.73_m2} Abnormal >60 [facility] Comment on above: Performed By: #### M DIFF, BMP3M, HEMDF #### [facility] [address] [place] [address] GFR/1.73 sq M.predicted among non-blacks MDRD (S/P/Bld) [Vol rate/Area] 37.2 mL/min/{1.73_m2} Abnormal >60 [facility] Comment on above: Result Comment: KDIG O guidelines provide the following GFR categories: Stage GFR(ml/min/1.73 m2) Terms G1 >=90 Normal or high G2 60-89 Mildly decreased* G3a 45-59 Mildly to moderately decreased G3b 30-44 Moderately to severely decreased G4 15-29 Severely decreased G5 <15 Kidney failure *Relative to young adult level. In the absence of evidence of kidney damage, neither GFR category G1 nor G2 fulfill the criteria for CKD. The CKD-EPI equation is validated in individuals 18 years of age and older. Currently the best equation for estimating glomerular filtration rate (GFR) from serum creatinine in children is the Bedside Moss equation. It is less accurate in patients with extremes of muscle mass, restriction of dietary protein, ingestion of creatine, extra-renal metabolism of creatinine, or treatment with medications that affect renal tubular creatinine secretion. Performed By: #### M DIFF, BMP3M, HEMDF #### [facility] [address] [place] [address] Glucose [Mass/Vol] 134 mg/dL High 70-100 [facility] Comment on above: Performed By: #### M DIFF, BMP3M, HEMDF #### [facility] [address] [place] [address] Urea nitrogen [Mass/Vol] 35 mg/dL High 9-20 [facility] Comment on above: Performed By: #### M DIFF, BMP3M, HEMDF #### [facility] [address] [place] [address] Potassium [Moles/Vol] 3.9 mmol/L Normal 3.5-5.1 [facility] Comment on above: Performed By: #### M DIFF, BMP3M, HEMDF #### [facility] [address] [place] [address] Sodium [Moles/Vol] 135 mmol/L Normal 135-145 [facility] Comment on above: Performed By: #### M DIFF, BMP3M, HEMDF #### [facility] [address] [place] [address] Chloride [Moles/Vol] 100 mmol/L Normal 98-107 [facility] Comment on above: Performed By: #### M DIFF, BMP3M, HEMDF #### [facility] [address] [place] [address] Anion gap [Moles/Vol] 8 mmol/L 3 - 13 mmol/L [facility] Calcium [Mass/Vol] 8.7 mg/dL 8.4 - 10. 4 mg/dL [facility] Chloride [Moles/Vol] 100 mmol/L 98 - 10 7 mmol/L [facility] CO2 [Moles/Vol] 27 mmol/L 22 - 30 mmol/L [facility] Creatinine [Mass/Vol] 1.4 mg/dL High 0.52 - 1.25 mg/dL [facility] EGFR IF NonAfrican Estonian 37.2 mL/min Abnormal 60 - PINF mL/min [facility] Comment on above: KDIGO guidelines pro vide the following GFR categories: Stage GFR(ml/min/1.73 m2) Terms G1 >=90 Normal or high G2 60-89 Mildly decreased* G3a 45-59 Mildly to moderately decreased G3b 30-44 Moderately to severely decreased G4 15-29 Severely decreased G5 <15 Kidney failure *Relative to young adult level. In the absence of evidence of kidney damage, neither GFR category G1 nor G2 fulfill the criteria for CKD. The CKD-EPI equation is validated in individuals 18 years of age and older. Currently the best equation for estimating glomerular filtration rate (GFR) from serum creatinine in children is the Bedside Moss equation. It is less accurate in patients with extremes of muscle mass, restriction of dietary protein, ingestion of creatine, extra-renal metabolism of creatinine, or treatment with medications that affect renal tubular creatinine secretion. GFR/1.73 sq M.predicted among blacks MDRD (S/P/Bld) [Vol rate/Area] 43.2 mL/min/{1.73_m2} Abnormal 60 - PINF mL/min [facility] Glucose [Mass/Vol] 134 mg/dL High 70 - 100 mg/dL [facility] Potassium [Moles/Vol] 3.9 mmol/L 3.5 - 5.1 mmol/L [facility] Sodium [Moles/Vol] 135 mmol/L 135 - 145 mmol/L [facility] Urea nitrogen (BldV) [Mass/Vol] 35 mg/dL High 9 - 20 mg/dL [facility] CBC with Auto Differentialon 04-10-2022 Absolute Baso # 0.0 10*3/uL 0 - 0.2 10*3/uL [facility] Absolute Neut # 17.8 10*3/uL High 1.8 - 7 10*3/uL [facility] MCHC (RBC) [Mass/Vol] 33.0 % 32 - 36 % [facility] Platelet distribution width (Bld) [Ratio] 15.1 % High 11.5 - 14.5 % [facility] Chest Portableon 04-10-20 CR Chest Portable Patient Name: UBALDO ARANGO Diagnostic Radiology ACCESSION EXAM DATE/TIME PROCEDURE ORDERING PROVIDER [id number] 04/10/2022 21:01 EDT CR Chest Portable BRENTNILO MOREAU CPT code 23934 Reason For Exam (CR Chest Portable) fever, cough Report CHEST X-RAY AP CLINICAL INDICATION: Fever AP radiograph of the chest was obtained. COMPARISON: November 27, 2020 FINDINGS: The cardiac silhouette is within normal limits. Bandlike opacity overlying the mid right lung, concerning for pneumonia. Otherwise the lungs are clear. No pleural effusion or pneumothorax is identified. The bony structures of the chest are unremarkable as visualized. IMPRESSION: Bandlike opacity overlying the mid right lung, concerning for pneumonia. Report Dictated on Final Dictating Physician: MD SÁNCHEZ JASON Signed Date and Time: 04/10/2022 9:04 pm Signed by: MD SÁNCHEZ JASON Transcribed Date and Time: 04/10/2022 9:05 Normal [facility] Complete Urinalysison 2021 Appearance (U) Ex.Turbid Abnormal Clear [facility] Comment on above: Result Comment: . Performed By: #### M DIFF, MG3, HEMDF, BMP3M #### [facility] [address] [place] [address] Bacteria Many Abnormal Negative [facility] Comment on above: Result Comment: . Performed By: #### M DIFF, MG3, HEMDF, BMP3M #### [facility] [address] [place] [address] Bilirubin,Urine Negative Normal Negative [facility] Comment on above: Result Comment: . Performed By: #### M DIFF, MG3, HEMDF, BMP3M #### [facility] [address] [place] [place] [address] Cast, Hyaline 0 - 2 Abnormal Negative [facility] Comment on above: Result Comment: . Performed By: #### M DIFF, MG3, HEMDF, BMP3M #### [facility] [address] [place] [address] Color (U) Yellow Normal Lt. Yellow [facility] Comment on above: Result Comment: . Performed By: #### M DIFF, MG3, HEMDF, BMP3M #### [facility] [address] [place] [address] Glucose Ql (U) Normal Normal Normal (<70) [facility] Comment on above: Result Comment: . Performed By: #### M DIFF, MG3, HEMDF, BMP3M #### [facility] [address] [place] [address] Ketone,Urine Negative Normal Negative [facility] Comment on above: Result Comment: . Performed By: #### M DIFF, MG3, HEMDF, BMP3M #### [facility] [address] [place] [address] Leukocytes,Urine 500 Johnnie/uL Abnormal Negative [facility] Comment on above: Result Comment: . Performed By: #### M DIFF, MG3, HEMDF, BMP3M #### [facility] [address] [place] [address] Mucous Threads Few Normal Negative [facility] Comment on above: Result Comment: . Performed By: #### M DIFF, MG3, HEMDF, BMP3M #### [facility] [address] [place] [address] Nitrites,Urine Positive Abnormal Negative [facility] Comment on above: Result Comment: . Performed By: #### M DIFF, MG3, HEMDF, BMP3M #### [facility] [address] [place] [address] Occult Blood,Urine 0.2 mg/dL Abnormal Negative [facility] Comment on above: Result Comment: . Performed By: #### M DIFF, MG3, HEMDF, BMP3M #### [facility] [address] [place] [address] pH,Urine 6.0 Normal 5.0-8.0 [facility] Comment on above: Result Comment: . Performed By: #### M DIFF, MG3, HEMDF, BMP3M #### [facility] [address] [place] [address] Protein (U) [Mass/Vol] 100 mg/dL Abnormal Negative [facility] Comment on above: Result Comment: . Performed By: #### M DIFF, MG3, HEMDF, BMP3M #### [facility] [address] [place] [address] RBC, Urine 6 - 10 Abnormal 0-2 [facility] Comment on above: Result Comment: . Performed By: #### M DIFF, MG3, HEMDF, BMP3M #### [facility] [address] [place] [address] Specific [place],Urine 1.013 Normal 1.005 - 1.030 [facility] Comment on above: Result Comment: . Performed By: #### M DIFF, MG3, HEMDF, BMP3M #### [facility] [address] [place] [address] Squamous Epithelial 0 - 2 Normal 3-5 [facility] Comment on above: Result Comment: . Performed By: #### M DIFF, MG3, HEMDF, BMP3M #### [facility] [address] [place] [address] Urobilinogen,Urine Normal Normal Normal (0-1) [facility] Comment on above: Result Comment: . Performed By: #### M DIFF, MG3, HEMDF, BMP3M #### [facility] [address] [place] [address] WBC LM.HPF (Urine sed) [#/Area] /[HPF] Abnormal 0-5 [facility] Comment on above: Result Comment: . Performed By: #### M DIFF, MG3, HEMDF, BMP3M #### [facility] [address] [place] [address] White Blood Cell Clump Many Abnormal Negative [facility] Comment on above: Result Comment: . Performed By: #### M DIFF, MG3, HEMDF, BMP3M #### [facility] [address] [place] [address] ED Provider Noteon 2 ED Provider Note [facility] EMERGENCY DEPARTMENT ENCOUNTER Pt Name: Ubaldo Arango Birthdate 1950 Date of evaluation: 04/10/2022 Provider: Nilo Kennedy MD CHIEF COMPLAINT Chief Complaint Patient presents with Seizures Fever I wore a KN95 mask for the entirety of this encounter. HISTORY OF PRESENT ILLNESS (Location/Symptom, Timing/Onset,Contex t/Setting, Quality, Duration, Modifying Factors, Severity) Note limiting factors. HPI Ubaldo Arango is a 71 y.o. female who presents to the emergency department for evaluation of fever. Patient centers assisted for fever. skilled nursing staff said she had a seizure 2 days ago on Saturday. They state that she has had intermittent nausea and vomiting for the past 2 days. They are concerned that she had a seizure today but admitted that no one witnessed the seizure. Patient has had a fever. Patient has MRDD and cannot cooperate with history. Patient was admitted here for UTI when having similar symptoms earlier this year. At that time she was found to have a multidrug-resistant urine infection due to E. coli. Culture at that time showed the E. coli was sensitive to meropenem Nursing Notes were reviewed. REVIEW OFSYSTEMS (2+ for level 4; 10+ level 5) Review of Systems not obtainable due to patient's mental status PAST MEDICAL HISTORY Past Medical History: Diagnosis Date Anoxic brain damage (HCC) Aphasia Aphasia Constipation Convulsions (HCC) Dementia (HCC) Dementia (HCC) Dysphagia Dysphagia Gastroesophageal reflux Hearing loss Hypothyroidism PVD (peripheral vascular disease) (HCC) Schizoaffective disorder (HCC) de Schizoaffective disorder (HCC) Smoker SURGICAL HISTORY No past surgical history on file. CURRENT MEDICATIONS Previous Medications ACETAMINOPHEN (TYLENOL) [address] 650 mg rectally every 4 hours as needed for Fever BISACODYL (DULCOLAX) [address] 10 mg rectally daily DIVALPROEX (DEPAKOTE) [address] TABLET Take 250 mg by mouth 3 times daily ETHOSUXIMIDE (ZARONTIN) 250 MG/5ML SOLUTION Take 600 mg by mouth 2 times daily FAMOTIDINE (PEPCID) 20 MG TABLET Take 20 mg by mouth daily FUROSEMIDE (LASIX) 8 MG/ML ORAL SOLUTION Take by mouth daily GUAIFENESIN (ROBITUSSIN) 100 MG/5ML SOLN ORAL SOLUTION Take 200 mg by mouth every 4 hours as needed for Cough HYDROXYZINE (ATARAX) 10 MG TABLET Take 10 mg by mouth 3 times daily as needed for Itching LEVOTHYROXINE (SYNTHROID) 100 MCG TABLET Take 100 mcg by mouth Daily LORATADINE (CLARITIN) 10 MG TABLET Take 10 mg by mouth daily METOCLOPRAMIDE (REGLAN) 10 MG TABLET Take 10 mg by mouth 2 times daily METOPROLOL (LOPRESSOR) 100 MG TABLET Take 100 mg by mouth daily MULTIPLE VITAMINS-MINERALS (THERAPEUTIC MULTIVITAMIN-MINERA LS) TABLET Take 1 tablet by mouth daily QUETIAPINE (SEROQUEL XR) 50 MG EXTENDED RELEASE TABLET Take 50 mg by mouth 2 times daily ALLERGIES Patient has no known allergies. FAMILY HISTORY No family history on file. SOCIAL HISTORY Social History Socioeconomic History Marital status: Single Tobacco Use Smoking status: Former Packs/day: 3.00 Years: 20.00 Pack years: 60.00 Types: Cigarettes Quit date: 08/05/1979 Years since quittin.7 Smokeless tobacco: Never Vaping Use Vaping Use: Never used Substance and Sexual Activity Drug use: Never SCREENINGS PHYSICAL EXAM (up to 7 for level 4, 8 or more for level 5) ED Triage Vitals [04/10/222041] BP Temp Temp Source Heart Rate Resp SpO2 Height Weight (!) 92/52 (!) 100.8 ?F (38.2 ?C) Temporal 93 19 90 % -- -- Physical Exam vital signs reviewed in nurse's notes. Patient is nontoxic in appearance. No respiratory distress. Head: Normocephalic, atraumatic Eyes: Pupils are equal, round and reactive to light. EOMI. Conjunctiva clear. Sclera anicteric ENT: Mucous membranes dry. Throat shows no erythema exudates or edema. Neck: No anterior adenopathy. No tenderness or stiffness. Chest: Nontender. No obvious flail segments. Lungs: Clear to auscultation bilaterally. No wheezing rales or rhonchi. Heart: Regular rate and rhythm. No audible murmur or gallop. Abdomen: Soft, nondistended, with periumbilical tenderness. No rebound or guarding. No signs of peritonitis. Back: No midline tenderness. No flank area tenderness. Extremities: No gross deformity. No obvious tenderness. No obvious joint swelling. No calf tenderness. Negative Homans sign. Good distal pulses in all 4 extremities. Neurologic: Alert, unable to assess orientation. No obvious focal motor deficits in all 4 extremities. DIAGNOSTIC RESULTS EKG (Per Emergency Physician): Normal sinus rhythm. Rate of 90. Normal axis. No acute appearing ST segment elevation. No old EKG available this time for comparison. Today's EKG read by this examiner RADIOLOGY (Per Emergency Physician): Chest x-ray shows opacity in the right midlung concerning for pneumonia. Read (more content not included)... 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1950 Requested By: NILO KENNEDY Order Number: [id number] Reading MD: Nilo Kennedy Measurements Intervals [place] Rate: 90 P: 41 WA: 162 QRS: 2 QRSD: 78 T: -57 QT: QTc: 0 Interpretive Statements Sinus rhythm BORDERLINE LEFT AXIS DEVIATION Low voltage, precordial leads Borderline repolarization abnormality No previous ECG available for comparison Electronically Signed On 04-10-2022 21:29:46 EDT by Nilo Kennedy [facility] Nilo Kennedy MD - 04/10/2022 [facility] Test Date: 2022-04-10 Pat Name: UBALDOCORWIN ARANGO Department: 2AED Room: 16 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1950 Requested By: NILO KENNEDY Order Number: [id number] Reading : Nilo Kennedy Measurements Intervals [place] Rate: 90 P: 41 WA: 162 QRS: 2 QRSD: 78 T: -57 QT: QTc: 0 Interpretive Statements Sinus rhythm BORDERLINE LEFT AXIS DEVIATION Low voltage, precordial leads Borderline repolarization abnormality No previous ECG available for comparison Electronically Signed On 9-6-2022 21:29:46 EDT by Nilo Kennedy [facility] Work Phone: [facility] Work Phone: Hemogram w/ Autodiffon 04-10 Abs Baso Cnt 0.0 10*3/uL Normal 0.0-0.2 [facility] Comment on above: Performed By: #### M DIFF, MG3, HEMDF, BMP3M #### [facility] [address] [place] [address] Abs Neutrophile Cnt 17.8 10*3/uL High 1.8-7.0 [facility] Comment on above: Performed By: #### M DIFF, MG3, HEMDF, BMP3M #### [facility] [address] [place] [address] Basophils/100 WBC (Bld) 0.1 % Normal 0.0-2.0 S [facility] Comment on above: Performed By: #### M DIFF, MG3, HEMDF, BMP3M #### [facility] [address] [place] [address] Eosinophils (Bld) [#/Vol] 0.0 10*3/uL Normal 0.0-0.5 [facility] Comment on above: Performed By: #### M DIFF, MG3, HEMDF, BMP3M #### [facility] [address] [place] [address] Eosinophils/100 WBC (Bld) 0.0 % Low 1.0-6.0 [facility] Comment on above: Performed By: #### M DIFF, MG3, HEMDF, BMP3M #### [facility] [address] [place] [address] Erythrocyte distribution width (RBC) [Ratio] 15.1 % High 11.5-14.5 [facility] Comment on above: Performed By: #### M DIFF, MG3, HEMDF, BMP3M #### [facility] [address] [place] [address] Granulocytes/100 WBC (Bld) 85.2 % High 40.0-80.0 [facility] Comment on above: Performed By: #### M DIFF, MG3, HEMDF, BMP3M #### [facility] [address] [place] [address] Hematocrit (Bld) [Volume fraction] 36.7 % Normal 35.0-47.0 [facility] Comment on above: Performed By: #### M DIFF, MG3, HEMDF, BMP3M #### [facility] [address] [place] [address] Hemoglobin (Bld) [Mass/Vol] 12.1 g/dL Normal 11.7-16.0 [facility] Comment on above: Performed By: #### M DIFF, MG3, HEMDF, BMP3M #### [facility] [address] [place] [address] Lymphocytes (Bld) [#/Vol] 1.4 10*3/uL Normal 1.0-4.3 [facility] Comment on above: Performed By: #### M DIFF, MG3, HEMDF, BMP3M #### [place] [address] [place] [address] Lymphocytes/100 WBC (Bld) 6.7 % Low 20.0-40.0 [facility] Comment on above: Performed By: #### M DIFF, MG3, HEMDF, BMP3M #### [facility] [address] [place] [address] MCH (RBC) [Entitic mass] 30.2 pg Normal 26.0-34.0 [facility] Comment on above: Performed By: #### M DIFF, MG3, HEMDF, BMP3M #### [place] [address] [place] [address] MCHC 33.0 % Normal 32.0-36.0 [facility] Comment on above: Performed By: #### M DIFF, MG3, HEMDF, BMP3M #### [facility] [address] [place] [address] MCV (RBC) [Entitic vol] 91.6 fL Normal 79.0-98.0 S [facility] Comment on above: Performed By: #### M DIFF, MG3, HEMDF, BMP3M #### [place] [address] [place] [address] Monocytes (Bld) [#/Vol] 1.7 10*3/uL High 0.0-0.8 [facility] Comment on above: Performed By: #### M DIFF, MG3, HEMDF, BMP3M #### [facility] [address] [place] [address] Monocytes/100 WBC (Bld) 8.0 % Normal 2.0-10.0 S [facility] Comment on above: Performed By: #### M DIFF, MG3, HEMDF, BMP3M #### [facility] [address] [place] [address] Platelet mean volume (Bld) [Entitic vol] 8.6 fL Normal 7.4-12.4 [facility] Comment on above: MPV is a calculated measurement using platelet volume ratio. Result Comment: MPV is a calculated measurement using platelet volume ratio. Performed By: #### M DIFF, MG3, HEMDF, BMP3M #### [facility] [address] [place] [address] Platelets (Bld) [#/Vol] 210 10*3/uL Normal 140-440 [facility] Comment on above: Performed By: #### M DIFF, MG3, HEMDF, BMP3M #### [facility] [address] [place] [address] RBC (Bld) [#/Vol] 4.01 10*6/uL Normal 3.80-5.20 [facility] Comment on above: Performed By: #### M DIFF, MG3, HEMDF, BMP3M #### [facility] [address] [place] [address] WBC (Bld) [#/Vol] 20.9 10*3/uL High 3.6-10.7 [facility] Comment on above: Performed By: #### M DIFF, MG3, HEMDF, BMP3M #### [facility] [address] [place] [address] Hepatic Functionon 2 ALT [Catalytic activity/Vol] 15 U/L Normal 0-34 [facility] Comment on above: Result Comment: The ALT test is performed by an updated assay method. Please note that the reference intervals have been changed and are now sex specific. Performed By: #### M DIFF, MG3, HEMDF, BMP3M #### [facility] [address] [place] [address] ALP [Catalytic activity/Vol] 64 U/L Normal 38-126 [facility] Comment on above: Performed By: #### M DIFF, MG3, HEMDF, BMP3M #### [facility] [address] [place] [address] AST [Catalytic activity/Vol] 31 U/L Normal 15-46 [facility] Comment on above: Performed By: #### M DIFF, MG3, HEMDF, BMP3M #### [facility] [address] [place] [address] Bilirubin [Mass/Vol] 0.3 mg/dL Normal 0.2-1.3 [facility] Comment on above: Performed By: #### M DIFF, MG3, HEMDF, BMP3M #### [facility] [address] [place] [address] Bilirubin.indirect [Mass/Vol] 0.0 mg/dL Normal 0.0-0.3 [facility] Comment on above: Performed By: #### M DIFF, MG3, HEMDF, BMP3M #### [facility] [address] [place] [address] Protein [Mass/Vol] 7.3 g/dL Normal 6.3-8.2 [facility] Comment on above: Performed By: #### M DIFF, MG3, HEMDF, BMP3M #### [facility] [address] [place] [address] Albumin [Mass/Vol] 3.6 g/dL Normal 3.5-5.0 [facility] Comment on above: Performed By: #### M DIFF, MG3, HEMDF, BMP3M #### [facility] [address] [place] [address] Hepatic Function Panelon Albumin [Mass/Vol] 3.6 g/dL 3.5 - 5 g/dL [facility] ALP (Bld) [Catalytic activity/Vol] 64 U/L 38 - 126 U/L [facility] ALT [Catalytic activity/Vol] 15 U/L 0 - 34 U/L [facility] Comment on above: The ALT test is perf ormed by an updated assay method. Please note that the reference intervals have been changed and are now sex specific. AST [Catalytic activity/Vol] 31 U/L 15 - 46 U/L [facility] Bilirubin [Mass/Vol] 0.3 mg/dL 0.2 - 1 .3 mg/dL [facility] Bilirubin.indirect [Mass/Vol] 0.0 mg/dL 0 - 0.3 mg/dL [facility] Free PSA/Total PSA [Mass fraction] 7.3 g/dL 6.3 - 8.2 g/dL [facility] Lactate, Sepsison 04-10-2022 Lactate [Moles/Vol] 2.7 mmol/L Critically high 0.7 - 2 mmol/L [facility] Test Performed by [facility], [address] LAB [facility] Lactic Acid, Sepsison 2021 Lactate [Moles/Vol] 2.7 mmol/L Critically high 0.7-2.0 [facility] Comment on above: Performed By: #### M DIFF, MG3, HEMDF, BMP3M #### [facility] [address] [place] [address] Lipaseon 04-10-2022 Lipase [Catalytic activity/Vol] 89 U/L Normal 23-300 [facility] Comment on above: Performed By: #### M DIFF, MG3, HEMDF, BMP3M #### [facility] [address] [place] [address] Lipase [Catalytic activity/Vol] 89 U/L 23 - 300 U/L [facility] Magnesiumon 04-10-2022 Magnesium [Mass/Vol] 2.1 mg/dL Normal 1.6-2.3 [facility] Comment on above: Performed By: #### M DIFF, MG3, HEMDF, BMP3M #### [facility] [address] [place] [address] Magnesium [Mass/Vol] 2.1 mg/dL 1.6 - 2 .3 mg/dL [facility] No Panel Informationon 04-10 Test Performed by [facility], [address] LAB [facility] Interpretation and review of laboratory results Abnormal [facility] Test Performed by [facility], [address] [place] [address] [facility] RBC MORPHOLOGYon 04-10-2022 Anisocytosis Ql (Bld) Slight [facility] RBC (Bld) [#/Vol] ABNORMAL [facility] Troponin Ion 04-10-2022 Troponin I.cardiac [Mass/Vol] 0.046 ng/mL High 0.000-0.034 [facility] Comment on above: Result Comment: . Performed By: #### M DIFF, MG3, HEMDF, BMP3M #### [facility] [address] [place] [address] Troponin x1on 04-10-2022 Troponin I.cardiac [Mass/Vol] 0.046 ng/mL High 0 - 0.034 ng/mL [facility] Comment on above: . Test Performed by [facility], [address] [place] [address] [facility] Urinalysison 04-10-2022 Appearance (U) Ex.Turbid Abnormal Clear NA [facility] Comment on above: . Bacteria, UA Many Abnormal Negative /[HPF] [facility] Comment on above: . Bilirubin Urine Negative Negative mg/dL [facility] Comment on above: . Color (U) Yellow Lt. Yellow NA [facility] Comment on above: . Glucose, Ur Normal Normal (<70) mg/dL [facility] Comment on above: . Hyaline Casts, UA 0-2 Abnormal Negative /[LPF] [facility] Comment on above: . Ketones Ql (U) Negative Negative mg/dL [facility] Comment on above: . LEUKOCYTES, UA 500 Abnormal Negative Johnnie/uL [facility] Comment on above: . Mucous Threads Few Negative /[LPF] [facility] Comment on above: . Nitrite, Urine Positive Abnormal Negative NA [facility] Comment on above: . Occult Blood,Urine 0.2 mg/dL Abnormal Negative [facility] Comment on above: . pH (U) 6.0 [pH] [facility] Comment on above: . Protein (U) [Mass/Vol] 100 mg/dL Abnormal Negative [facility] Comment on above: . RBC, UA /[HPF] Abnormal 0 - 2 /[HPF] [facility] Comment on above: . Specific [place], Urine 1.013 S [facility] Comment on above: . Squam Epithel, UA 0-2 3 - 5 /[HPF] [facility] Comment on above: . Urobilinogen, Urine Normal Normal ( 0-1) mg/dL [facility] Comment on above: . WBC Clumps, Urine Many Abnormal Negative /[HPF] [facility] Comment on above: . WBC, UA /[HPF] Abnormal 0 - 5 /[HPF] [facility] Comment on above: . Test Performed by [facility], [address], [place], [place] [address] [facility] XR CHEST PORTABLEon 04-10-20 Patient Name: UBALDO ARANGO Diagnostic Radiology ACCESSION EXAM DATE/TIME PROCEDURE ORDERING PROVIDER [id number] 04/10/2022 21:01 EDT CR Chest Portable NILO KENNEDY CPT code 16238 Reason For Exam (CR Chest Portable) fever, cough Report CHEST X-RAY AP CLINICAL INDICATION: Fever AP radiograph of the chest was obtained. COMPARISON: November 27, 2020 FINDINGS: The cardiac silhouette is within normal limits. Bandlike opacity overlying the mid right lung, concerning for pneumonia. Otherwise the lungs are clear. No pleural effusion or pneumothorax is identified. The bony structures of the chest are unremarkable as visualized. IMPRESSION: Bandlike opacity overlying the mid right lung, concerning for pneumonia. Report Dictated on --- Final --- Dictating Physician: MD SÁNCHEZ JASON Signed Date and Time: 04/10/2022 9:04 pm Signed by: MD SÁNCHEZ JASON Transcribed Date and Time: 04/10/2022 9:05 [facility] James Sánchez MD - 04/10/2022 Patient Name: UBALDO ARANGO Diagnostic Radiology ACCESSION EXAM DATE/TIME PROCEDURE ORDERING PROVIDER [id number] 04/10/2022 21:01 EDT CR Chest Portable NILO KENNEDY CPT code 29296 Reason For Exam (CR Chest Portable) fever, cough Report CHEST X-RAY AP CLINICAL INDICATION: Fever AP radiograph of the chest was obtained. COMPARISON: November 27, 2020 FINDINGS: The cardiac silhouette is within normal limits. Bandlike opacity overlying the mid right lung, concerning for pneumonia. Otherwise the lungs are clear. No pleural effusion or pneumothorax is identified. The bony structures of the chest are unremarkable as visualized. IMPRESSION: Bandlike opacity overlying the mid right lung, concerning for pneumonia. Report Dictated on --- Final --- Dictating Physician: MD SÁNCHEZ JASON Signed Date and Time: 04/10/2022 9:04 pm Signed by: MD SÁNCHEZ JASON Transcribed Date and Time: 04/10/2022 9:05 [facility] Work Phone: Radiology Study observation (narrative) [facility] Work Phone: XR CHEST PORTABLEOrdered By: James Sánchez on 04-10-2022 [facility] Work Phone: No Panel Informationon 03-26 Valproic Acid (Depakene) Level 51 ug/mL 50-100 [facility] Work Phone: Basophil percentageon 2021 Cholesterol [Mass/Vol] 196 mg/dL <200 [facility] Work Phone: Comment on above: <200 mg/dL Desirable 200-240 mg/dL Borderline >240 mg/dL High Risk Triglyceride [Mass/Vol] 208 mg/dL <199 [facility] Work Phone: Comment on above: The drugs N-Acetylcy steine and Metamizole may falsely depress this assay.Serum Triglycerides Reference Interval Normal <150 mg/dL Borderline high 150 - 199 mg/dL High 200 - 499 mg/dL Very High > or = 500 mg/dL WBC (Bld) [#/Vol] 9.1 10*3/uL 4.4-11.0 [facility] Work Phone: Blood erythrocytes count (nu mber/volume)on 02-21-2022 RBC (Bld) [#/Vol] 4.74 10*6/uL 4.2-5.4 [facility] Work Phone: Blood hemoglobin measurement (mass/volume)on 02-21-2022 Hemoglobin (Bld) [Mass/Vol] 13.9 g/dL 12.0-15.0 [facility] Work Phone: Blood platelet mean volumeon 02-21-2022 Platelet mean volume (Bld) [Entitic vol] 10.5 fL 6.2-12.0 [facility] Work Phone: Determination of erythrocyte mean corpuscular volume (MCV)on 02-21-2022 MCV (RBC) [Entitic vol] 93.7 fL 81-99 [facility] Work Phone: Hematocrit Auto (Bld) [Volum e fraction]on 02-21-2022 Hematocrit (Bld) [Volume fraction] 44.4 % 37-47 [facility] Work Phone: Laboratory - Hematology and Cell countson 02-21-2022 Erythrocyte distribution width (RBC) [Entitic vol] 52.2 fL 35.1-43.9 [facility] [place] Work Phone: Erythrocyte distribution width (RBC) [Ratio] 15.1 % 11.6-14.6 [facility] Work Phone: MCH (RBC) [Entitic mass] 29.3 pg 27.0-32.0 [facility] Work Phone: MCHC Auto (RBC) [Mass/Vol]on 02-21-2022 MCHC (RBC) [Mass/Vol] 31.3 g/dL 32-36 [facility]: Platelets bldon 02-21-2022 Platelets (Bld) [#/Vol] 311 10*3/uL 150-450 [facility] Work Phone: Serum or plasma cholesterol in HDL measurement (mass/volume)on 02-21-2022 Cholesterol in HDL [Mass/Vol] 48 mg/dL >40 [facility] Work Phone: Comment on above: The drugs N-Acetylcy steine and Metamizole may falsely depress this assay. Reference Range HDL <40 mg/dL Low HDL Cholesterol HDL >or= 60 mg/dL High HDL Cholesterol Serum or plasma cholesterol in VLDL measurement (mass/volume)on 02-21-2022 Cholesterol in VLDL [Mass/Vol] 42 mg/dL 5-40 [facility] Work Phone: Serum or plasma low density lipoprotein (LDL) cholesterol measurement (mass/volume)on 02-21-2022 Cholesterol in LDL [Mass/Vol] 106 mg/dL 0-130 [facility] Work Phone: Basophil percentageon 2021 Chloride [Moles/Vol] 104 mmol/L 98-107 [facility]: Glucose [Mass/Vol] 82 mg/dL 74-106 [facility] Work Phone: Potassium [Moles/Vol] 4.3 mmol/L 3.5-5.1 [facility] Work Phone: Sodium [Moles/Vol] 138 mmol/L 136-145 [facility] Work Phone: WBC (Bld) [#/Vol] 9.2 10*3/uL 4.4-11.0 [facility] Work Phone: Blood erythrocytes count (nu mber/volume)on 01-30-2022 RBC (Bld) [#/Vol] 4.29 10*6/uL 4.2-5.4 [facility] Blood hemoglobin measurement (mass/volume)on 01-30-2022 Hemoglobin (Bld) [Mass/Vol] 12.9 g/dL 12.0-15.0 [facility] Work Phone: Blood platelet mean volumeon 01-30-2022 Platelet mean volume (Bld) [Entitic vol] 10.3 fL 6.2-12.0 [facility] Work Phone: Determination of erythrocyte mean corpuscular volume (MCV)on 01-30-2022 MCV (RBC) [Entitic vol] 91.8 fL 81-99 [facility] Work Phone: Hematocrit Auto (Bld) [Volum e fraction]on 01-30-2022 Hematocrit (Bld) [Volume fraction] 39.4 % 37-47 [facility] Work Phone: Laboratory - Chemistry and C hemistry - challengeon 01-30-2022 CO2 [Moles/Vol] 26.0 mmol/L 21.0-32.0 [facility] Work Phone: Urea nitrogen/Creatinine [Mass ratio] 33.9 mg/mg 10-20 [facility] Work Phone: Laboratory - Hematology and Cell countson 01-30-2022 Erythrocyte distribution width (RBC) [Entitic vol] 51.7 fL 35.1-43.9 [facility] Work Phone: Erythrocyte distribution width (RBC) [Ratio] 15.3 % 11.6-14.6 [facility] Work Phone: MCH (RBC) [Entitic mass] 30.1 pg 27.0-32.0 [facility] Work Phone: MCHC Auto (RBC) [Mass/Vol]on 01-30-2022 MCHC (RBC) [Mass/Vol] 32.7 g/dL 32-36 [facility] Work Phone: No Panel Informationon 01-30 Estimated GFR (MDRD) Amer 122 mL/min >60 [facility] Work Phone: Comment on above: GFR Calc Estimated GFR (MDRD) Non-Af Amer 101 mL/min >60 [facility] Work Phone: Comment on above: Non- GFR Calc Platelets bldon 01-30-2022 Platelets (Bld) [#/Vol] 246 10*3/uL 150-450 [facility] Work Phone: Serum or plasma calcium love urement (mass/volume)on 01-30-2022 Calcium [Mass/Vol] 9.4 mg/dL 8.5-10.1 [facility] Work Phone: Serum or plasma creatinine m easurement (mass/volume)on 01-30-2022 Creatinine [Mass/Vol] 0.62 mg/dL 0.55-1.02 [facility] Work Phone: Comment on above: The validity of the calculated GFR & GFRAA in patients over 70 years has not been determined. Clinical correlation is essential. Serum or plasma urea nitroge n measurement (mass/volume)on 01-30-2022 Urea nitrogen [Mass/Vol] 21 mg/dL 7-18 [facility] Work Phone: Thin prep Papanicolaou smear with manual screeningon 01-30-2022 Thin prep Papanicolaou smear with manual screening 8 5-15 [facility] Work Phone: No Panel Informationon 01-25 Valproic Acid (Depakene) Level 40 ug/mL 50-100 [facility] Work Phone: Basophil percentageon 2021 Bilirubin [Mass/Vol] 0.10 mg/dL 0.20-1.00 [facility] Work Phone: Comment on above: For patients on eltr ombopag therapy, use of Dimension [place] TBIL is not recommended. Chloride [Moles/Vol] 105 mmol/L 98-107 [facility] Work Phone: Cholesterol [Mass/Vol] 220 mg/dL <200 [facility] Work Phone: Comment on above: <200 mg/dL Desirable 200-240 mg/dL Borderline >240 mg/dL High Risk Glucose [Mass/Vol] 86 mg/dL 74-106 [facility] Work Phone: Potassium [Moles/Vol] 4.6 mmol/L 3.5-5.1 [facility] Work Phone: Protein [Mass/Vol] 7.8 g/dL 6.4-8.2 [facility] Work Phone: Sodium [Moles/Vol] 137 mmol/L 136-145 [facility] Work Phone: Triglyceride [Mass/Vol] 330 mg/dL <199 [facility] Work Phone: Comment on above: The drugs N-Acetylcy steine and Metamizole may falsely depress this assay.Serum Triglycerides Reference Interval Normal <150 mg/dL Borderline high 150 - 199 mg/dL High 200 - 499 mg/dL Very High > or = 500 mg/dL WBC (Bld) [#/Vol] 10.2 10*3/uL 4.4-11.0 [facility] Work Phone: Blood erythrocytes count (nu mber/volume)on 12-25-2021 RBC (Bld) [#/Vol] 4.74 10*6/uL 4.2-5.4 [facility] Work Phone: Blood hemoglobin measurement (mass/volume)on 12-25-2021 Hemoglobin (Bld) [Mass/Vol] 14.0 g/dL 12.0-15.0 [facility] Work Phone: Blood platelet mean volumeon 12-25-2021 Platelet mean volume (Bld) [Entitic vol] 11.0 fL 6.2-12.0 [facility] Work Phone: Determination of erythrocyte mean corpuscular volume (MCV)on 12-25-2021 MCV (RBC) [Entitic vol] 91.8 fL 81-99 [facility] Work Phone: Hematocrit Auto (Bld) [Volum e fraction]on 12-25-2021 Hematocrit (Bld) [Volume fraction] 43.5 % 37-47 [facility] Work Phone: Laboratory - Chemistry and C hemistry - challengeon 12-25-2021 ALP [Catalytic activity/Vol] 68 U/L 45-117 [facility] Work Phone: ALT [Catalytic activity/Vol] 18 U/L 13-56 [facility] Work Phone: CO2 [Moles/Vol] 26.0 mmol/L 21.0-32.0 [facility] Work Phone: Globulin (S) [Mass/Vol] 4.7 g/dL 2.2-4.2 [facility] Work Phone: Urea nitrogen/Creatinine [Mass ratio] 31.7 mg/mg 10-20 [facility] Work Phone: Laboratory - Hematology and Cell countson 12-25-2021 Erythrocyte distribution width (RBC) [Entitic vol] 51.7 fL 35.1-43.9 [facility] Work Phone: Erythrocyte distribution width (RBC) [Ratio] 15.2 % 11.6-14.6 [facility] Work Phone: MCH (RBC) [Entitic mass] 29.5 pg 27.0-32.0 [facility] Work Phone: MCHC Auto (RBC) [Mass/Vol]on 12-25-2021 MCHC (RBC) [Mass/Vol] 32.2 g/dL 32-36 [facility] Work [facility]: No Panel Informationon 12-25 Estimated GFR (MDRD) Amer 107 mL/min >60 [facility] Work Phone: Comment on above: GFR Calc Estimated GFR (MDRD) Non-Af Amer 88 mL/min >60 [facility] Work Phone: Comment on above: Non- GFR Calc Valproic Acid (Depakene) Level 44 ug/mL 50-100 [facility] Work Phone: Platelets bldon 12-25-2021 Platelets (Bld) [#/Vol] 277 10*3/uL 150-450 [facility] Work Phone: Serum or plasma albumin love urement (mass/volume)on 12-25-2021 Albumin [Mass/Vol] 3.1 g/dL 3.2-5.0 [facility] Work Phone: Serum or plasma albumin/glob ulin mass ratioon 12-25-2021 Albumin/Globulin [Mass ratio] 0.7 {ratio} 0.9-2.4 [facility] Work Phone: Serum or plasma calcium love urement (mass/volume)on 12-25-2021 Calcium [Mass/Vol] 9.7 mg/dL 8.5-10.1 [facility] Work Phone: Serum or plasma cholesterol in HDL measurement (mass/volume)on 12-25-2021 Cholesterol in HDL [Mass/Vol] 45 mg/dL >40 [facility] Work Phone: Comment on above: The drugs N-Acetylcy steine and Metamizole may falsely depress this assay. Reference Range HDL <40 mg/dL Low HDL Cholesterol HDL >or= 60 mg/dL High HDL Cholesterol Serum or plasma cholesterol in VLDL measurement (mass/volume)on 12-25-2021 Cholesterol in VLDL [Mass/Vol] 66 mg/dL 5-40 [facility] Work Phone: Serum or plasma creatinine m easurement (mass/volume)on 12-25-2021 Creatinine [Mass/Vol] 0.69 mg/dL 0.55-1.02 [facility] Work Phone: Comment on above: The validity of the calculated GFR & GFRAA in patients over 70 years has not been determined. Clinical correlation is essential. Serum or plasma low density lipoprotein (LDL) cholesterol measurement (mass/volume)on 12-25-2021 Cholesterol in LDL [Mass/Vol] 109 mg/dL 0-130 [facility] Work Phone: Serum or plasma urea nitroge n measurement (mass/volume)on 12-25-2021 Urea nitrogen [Mass/Vol] 22 mg/dL 7-18 [facility] Work Phone: Thin prep Papanicolaou smear with manual screeningon 12-25-2021 Thin prep Papanicolaou smear with manual screening 15 U/L 15-37 [facility] Work Phone: Thin prep Papanicolaou smear with manual screening 6 5-15 [facility] Work Phone: Basophil percentageon 2021 Chloride [Moles/Vol] 102 mmol/L 98-107 [facility] Work [facility]: Glucose [Mass/Vol] 91 mg/dL 74-106 [facility] Work Phone: Potassium [Moles/Vol] 3.8 mmol/L 3.5-5.1 [facility] Work Phone: Sodium [Moles/Vol] 137 mmol/L 136-145 [facility] Work Phone: WBC (Bld) [#/Vol] 7.7 10*3/uL 4.4-11.0 [facility] Work Phone: Blood erythrocytes count (nu mber/volume)on 12-12-2021 RBC (Bld) [#/Vol] 4.44 10*6/uL 4.2-5.4 [facility]: Blood hemoglobin measurement (mass/volume)on 12-12-2021 Hemoglobin (Bld) [Mass/Vol] 12.9 g/dL 12.0-15.0 [facility] Work Phone: Blood platelet mean volumeon 12-12-2021 Platelet mean volume (Bld) [Entitic vol] 11.5 fL 6.2-12.0 [facility] Work Phone: Determination of erythrocyte mean corpuscular volume (MCV)on 12-12-2021 MCV (RBC) [Entitic vol] 92.1 fL 81-99 [facility] Work Phone: Hematocrit Auto (Bld) [Volum e fraction]on 12-12-2021 Hematocrit (Bld) [Volume fraction] 40.9 % 37-47 [facility] Work Phone: Laboratory - Chemistry and C hemistry - challengeon 12-12-2021 CO2 [Moles/Vol] 29.0 mmol/L 21.0-32.0 [facility] Work Phone: Urea nitrogen/Creatinine [Mass ratio] 24.4 mg/mg 10-20 [facility] Work Phone: Laboratory - Hematology and Cell countson 12-12-2021 Erythrocyte distribution width (RBC) [Entitic vol] 53.3 fL 35.1-43.9 [facility] Work Phone: Erythrocyte distribution width (RBC) [Ratio] 15.8 % 11.6-14.6 [facility] Work Phone: MCH (RBC) [Entitic mass] 29.1 pg 27.0-32.0 [facility] Work Phone: MCHC Auto (RBC) [Mass/Vol]on 12-12-2021 MCHC (RBC) [Mass/Vol] 31.5 g/dL 32-36 [facility] Work Phone: No Panel Informationon 12-12 Estimated GFR (MDRD) Amer 123 mL/min >60 [facility] Work Phone: Comment on above: GFR Calc Estimated GFR (MDRD) Non-Af Amer 102 mL/min >60 [facility] Work Phone: Comment on above: Non- GFR Calc Platelets bldon 12-12-2021 Platelets (Bld) [#/Vol] 288 10*3/uL 150-450 [facility] Work Phone: Serum or plasma calcium love urement (mass/volume)on 12-12-2021 Calcium [Mass/Vol] 9.1 mg/dL 8.5-10.1 [facility] Work Phone: Serum or plasma creatinine m easurement (mass/volume)on 12-12-2021 Creatinine [Mass/Vol] 0.61 mg/dL 0.55-1.02 [facility] Work Phone: Comment on above: The validity of the calculated GFR & GFRAA in patients over 70 years has not been determined. Clinical correlation is essential. Serum or plasma urea nitroge n measurement (mass/volume)on 12-12-2021 Urea nitrogen [Mass/Vol] 15 mg/dL 7-18 [facility] Work Phone: Thin prep Papanicolaou smear with manual screeningon 12-12-2021 Thin prep Papanicolaou smear with manual screening 6 5-15 [facility] Work Phone: Basophil percentageon 2021 Chloride [Moles/Vol] 101 mmol/L 98-107 [facility] Work Phone: Glucose [Mass/Vol] 94 mg/dL 74-106 [facility] Work Phone: Potassium [Moles/Vol] 4.3 mmol/L 3.5-5.1 [facility] Work Phone: Comment on above: Slight Hemolysis, Re sult may be falsely increased. Sodium [Moles/Vol] 138 mmol/L 136-145 [facility] Work Phone: WBC (Bld) [#/Vol] 9.0 10*3/uL 4.4-11.0 [facility] Work Phone: Blood erythrocytes count (nu mber/volume)on 10-30-2021 RBC (Bld) [#/Vol] 4.63 10*6/uL 4.2-5.4 [facility] Work Phone: Blood hemoglobin measurement (mass/volume)on 10-30-2021 Hemoglobin (Bld) [Mass/Vol] 13.7 g/dL 12.0-15.0 [facility] Work Phone: Blood platelet mean volumeon 10-30-2021 Platelet mean volume (Bld) [Entitic vol] 11.0 fL 6.2-12.0 [facility] Work Phone: Determination of erythrocyte mean corpuscular volume (MCV)on 10-30-2021 MCV (RBC) [Entitic vol] 91.4 fL 81-99 [facility] Work Phone: Hematocrit Auto (Bld) [Volum e fraction]on 10-30-2021 Hematocrit (Bld) [Volume fraction] 42.3 % 37-47 [facility] Work Phone: Laboratory - Chemistry and C hemistry - challengeon 10-30-2021 CO2 [Moles/Vol] 31.0 mmol/L 21.0-32.0 [facility] Work Phone: Urea nitrogen/Creatinine [Mass ratio] 31.2 mg/mg 10-20 [facility] Work Phone: Laboratory - Hematology and Cell countson 10-30-2021 Erythrocyte distribution width (RBC) [Entitic vol] 50.8 fL 35.1-43.9 [facility] Work Phone: Erythrocyte distribution width (RBC) [Ratio] 15.3 % 11.6-14.6 [facility] Work Phone: MCH (RBC) [Entitic mass] 29.6 pg 27.0-32.0 [facility] Work Phone: MCHC Auto (RBC) [Mass/Vol]on 10-30-2021 MCHC (RBC) [Mass/Vol] 32.4 g/dL 32-36 [facility] Work Phone: No Panel Informationon 10-30 Estimated GFR (MDRD) Amer 111 mL/min >60 [facility] Work Phone: Comment on above: GFR Calc Estimated GFR (MDRD) Non-Af Amer 91 mL/min >60 [facility] Work Phone: Comment on above: Non- GFR Calc Platelets bldon 10-30-2021 Platelets (Bld) [#/Vol] 289 10*3/uL 150-450 [facility] Work Phone: Serum or plasma calcium love urement (mass/volume)on 10-30-2021 Calcium [Mass/Vol] 9.2 mg/dL 8.5-10.1 [facility] Work Phone: Serum or plasma creatinine m easurement (mass/volume)on 10-30-2021 Creatinine [Mass/Vol] 0.67 mg/dL 0.55-1.02 [facility] Work Phone: Comment on above: The validity of the calculated GFR & GFRAA in patients over 70 years has not been determined. Clinical correlation is essential. Serum or plasma urea nitroge n measurement (mass/volume)on 10-30-2021 Urea nitrogen [Mass/Vol] 21 mg/dL 7-18 [facility] Work Phone: Thin prep Papanicolaou smear with manual screeningon 10-30-2021 Thin prep Papanicolaou smear with manual screening 6 5-15 [facility] Work Phone: No Panel Informationon 09-25 Valproic Acid (Depakene) Level 52 ug/mL 50-100 [facility] Work Phone: No Panel Informationon 09-20 Valproic Acid (Depakene) Level 50 ug/mL 50-100 [facility] Work Phone: Basophil percentageon 2021 Bilirubin [Mass/Vol] 0.30 mg/dL 0.20-1.00 [facility] Work Phone: Comment on above: For patients on eltr ombopag therapy, use of Dimension [place] TBIL is not recommended. Chloride [Moles/Vol] 105 mmol/L 98-107 [facility] Work Phone: Glucose [Mass/Vol] 85 mg/dL 74-106 [facility] Work Phone: Potassium [Moles/Vol] 4.1 mmol/L 3.5-5.1 [facility] Work Phone: Protein [Mass/Vol] 7.3 g/dL 6.4-8.2 [facility] Work Phone: Sodium [Moles/Vol] 138 mmol/L 136-145 [facility] Work Phone: WBC (Bld) [#/Vol] 7.8 10*3/uL 4.4-11.0 [facility] Work Phone: Blood erythrocytes count (nu mber/volume)on 09-14-2021 RBC (Bld) [#/Vol] 4.31 10*6/uL 4.2-5.4 [facility]: Blood hemoglobin measurement (mass/volume)on 09-14-2021 Hemoglobin (Bld) [Mass/Vol] 13.0 g/dL 12.0-15.0 [facility] Work Phone: Blood platelet mean volumeon 09-14-2021 Platelet mean volume (Bld) [Entitic vol] 10.5 fL 6.2-12.0 [facility] Work Phone: Determination of erythrocyte mean corpuscular volume (MCV)on 09-14-2021 MCV (RBC) [Entitic vol] 90.0 fL 81-99 [facility] Work Phone: Hematocrit Auto (Bld) [Volum e fraction]on 09-14-2021 Hematocrit (Bld) [Volume fraction] 38.8 % 37-47 [facility] Work Phone: Laboratory - Chemistry and C hemistry - challengeon 09-14-2021 ALP [Catalytic activity/Vol] 68 U/L 45-117 [facility] Work Phone: ALT [Catalytic activity/Vol] 18 U/L 13-56 [facility] Work Phone: CO2 [Moles/Vol] 28.0 mmol/L 21.0-32.0 [facility] Work Phone: Globulin (S) [Mass/Vol] 4.2 g/dL 2.2-4.2 [facility] Work Phone: Urea nitrogen/Creatinine [Mass ratio] 24.4 mg/mg 10-20 [facility] Work Phone: Laboratory - Hematology and Cell countson 09-14-2021 Erythrocyte distribution width (RBC) [Entitic vol] 49.1 fL 35.1-43.9 [facility] Work Phone: Erythrocyte distribution width (RBC) [Ratio] 14.9 % 11.6-14.6 [facility] Work Phone: MCH (RBC) [Entitic mass] 30.2 pg 27.0-32.0 [facility] Work Phone: MCHC Auto (RBC) [Mass/Vol]on 09-14-2021 MCHC (RBC) [Mass/Vol] 33.5 g/dL 32-36 [facility] Work Phone: No Panel Informationon 09-14 Estimated GFR (MDRD) Amer 99 mL/min >60 [facility] Work Phone: Comment on above: GFR Calc Estimated GFR (MDRD) Non-Af Amer 82 mL/min >60 [facility] Work Phone: Comment on above: Non- GFR Calc Platelets bldon 09-14-2021 Platelets (Bld) [#/Vol] 303 10*3/uL 150-450 [facility] Work Phone: Serum or plasma albumin love urement (mass/volume)on 09-14-2021 Albumin [Mass/Vol] 3.1 g/dL 3.2-5.0 [facility] Work Phone: Serum or plasma albumin/glob ulin mass ratioon 09-14-2021 Albumin/Globulin [Mass ratio] 0.7 {ratio} 0.9-2.4 [facility] Work Phone: Serum or plasma calcium love urement (mass/volume)on 09-14-2021 Calcium [Mass/Vol] 9.0 mg/dL 8.5-10.1 [facility] Work Phone: Serum or plasma creatinine m easurement (mass/volume)on 09-14-2021 Creatinine [Mass/Vol] 0.74 mg/dL 0.55-1.02 [facility] Work Phone: Comment on above: The validity of the calculated GFR & GFRAA in patients over 70 years has not been determined. Clinical correlation is essential. Serum or plasma urea nitroge n measurement (mass/volume)on 09-14-2021 Urea nitrogen [Mass/Vol] 18 mg/dL 7-18 [facility] Work Phone: Thin prep Papanicolaou smear with manual screeningon 09-14-2021 Thin prep Papanicolaou smear with manual screening 16 U/L 15-37 [facility] Work Phone: Thin prep Papanicolaou smear with manual screening 5 5-15 [facility] Work Phone: Basophil percentageon 2021 Bilirubin [Mass/Vol] 0.10 mg/dL 0.20-1.00 [facility] Work Phone: Comment on above: For patients on eltr ombopag therapy, use of Dimension [place] TBIL is not recommended. Chloride [Moles/Vol] 102 mmol/L 98-107 [facility] Work Phone: Glucose [Mass/Vol] 87 mg/dL 74-106 [facility] Work Phone: Potassium [Moles/Vol] 4.3 mmol/L 3.5-5.1 [facility] Work Phone: Comment on above: Slight Hemolysis, Re sult may be falsely increased. Protein [Mass/Vol] 8.0 g/dL 6.4-8.2 [facility] Work Phone: Sodium [Moles/Vol] 137 mmol/L 136-145 [facility] Work Phone: Laboratory - Chemistry and C hemistry - challengeon 08-31-2021 ALP [Catalytic activity/Vol] 82 U/L 45-117 [facility] Work Phone: ALT [Catalytic activity/Vol] 22 U/L 13-56 [facility] Work Phone: CO2 [Moles/Vol] 27.0 mmol/L 21.0-32.0 [facility] Work Phone: Globulin (S) [Mass/Vol] 4.9 g/dL 2.2-4.2 [facility] Work Phone: Urea nitrogen/Creatinine [Mass ratio] 25.6 mg/mg 10-20 [facility] Work Phone: No Panel Informationon 08-31 Estimated GFR (MDRD) Amer 99 mL/min >60 [facility] Work Phone: Comment on above: GFR Calc Estimated GFR (MDRD) Non-Af Amer 82 mL/min >60 [facility] Work Phone: Comment on above: Non- GFR Calc Serum or plasma albumin love urement (mass/volume)on 08-31-2021 Albumin [Mass/Vol] 3.1 g/dL 3.2-5.0 [facility] Work Phone: Serum or plasma albumin/glob ulin mass ratioon 08-31-2021 Albumin/Globulin [Mass ratio] 0.6 {ratio} 0.9-2.4 [facility] Work Phone: Serum or plasma calcium love urement (mass/volume)on 08-31-2021 Calcium [Mass/Vol] 9.1 mg/dL 8.5-10.1 [facility] Work Phone: Serum or plasma creatinine m easurement (mass/volume)on 08-31-2021 Creatinine [Mass/Vol] 0.74 mg/dL 0.55-1.02 [facility] Work Phone: Comment on above: The validity of the calculated GFR & GFRAA in patients over 70 years has not been determined. Clinical correlation is essential. Serum or plasma urea nitroge n measurement (mass/volume)on 08-31-2021 Urea nitrogen [Mass/Vol] 19 mg/dL 7-18 [facility] Work Phone: Thin prep Papanicolaou smear with manual screeningon 08-31-2021 Thin prep Papanicolaou smear with manual screening 17 U/L 15-37 [facility] Work Phone: Comment on above: Slight Hemolysis, Re sult may be falsely increased. Thin prep Papanicolaou smear with manual screening 8 5-15 [facility] Work Phone: Basophil percentageon 2021 Bilirubin [Mass/Vol] 0.20 mg/dL 0.20-1.00 [facility] Work Phone: Comment on above: For patients on eltr ombopag therapy, use of Dimension [place] TBIL is not recommended. Chloride [Moles/Vol] 106 mmol/L 98-107 [facility] Work Phone: Cholesterol [Mass/Vol] 185 mg/dL <200 [facility] Work Phone: Comment on above: <200 mg/dL Desirable 200-240 mg/dL Borderline >240 mg/dL High Risk Glucose [Mass/Vol] 92 mg/dL 74-106 [facility] Work Phone: Potassium [Moles/Vol] 3.9 mmol/L 3.5-5.1 [facility] Work Phone: Protein [Mass/Vol] 7.4 g/dL 6.4-8.2 [facility] Work Phone: Sodium [Moles/Vol] 140 mmol/L 136-145 [facility] Work Phone: Triglyceride [Mass/Vol] 217 mg/dL [facility] Work Phone: Comment on above: The drugs N-Acetylcy steine and Metamizole may falsely depress this assay.Serum Triglycerides Reference Interval Normal <150 mg/dL Borderline high 150 - 199 mg/dL High 200 - 499 mg/dL Very High > or = 500 mg/dL WBC (Bld) [#/Vol] 6.7 10*3/uL 4.4-11.0 [facility] Blood erythrocytes count (nu mber/volume)on 08-24-2021 RBC (Bld) [#/Vol] 4.49 10*6/uL 4.2-5.4 [facility] Blood hemoglobin measurement (mass/volume)on 08-24-2021 Hemoglobin (Bld) [Mass/Vol] 13.1 g/dL 12.0-15.0 [facility] Work Phone: Blood platelet mean volumeon 08-24-2021 Platelet mean volume (Bld) [Entitic vol] 10.6 fL 6.2-12.0 [facility] Work Phone: Determination of erythrocyte mean corpuscular volume (MCV)on 08-24-2021 MCV (RBC) [Entitic vol] 91.1 fL 81-99 [facility] Work Phone: Hematocrit Auto (Bld) [Volum e fraction]on 08-24-2021 Hematocrit (Bld) [Volume fraction] 40.9 % 37-47 [facility] Work Phone: Laboratory - Chemistry and C hemistry - challengeon 08-24-2021 ALP [Catalytic activity/Vol] 67 U/L 45-117 [facility] Work Phone: ALT [Catalytic activity/Vol] 20 U/L 13-56 [facility] Work Phone: CO2 [Moles/Vol] 27.0 mmol/L 21.0-32.0 [facility] Work Phone: Globulin (S) [Mass/Vol] 4.2 g/dL 2.2-4.2 [facility] Work Phone: Urea nitrogen/Creatinine [Mass ratio] 23.5 mg/mg 10-20 [facility] Work Phone: Laboratory - Hematology and Cell countson 08-24-2021 Erythrocyte distribution width (RBC) [Entitic vol] 50.9 fL 35.1-43.9 [facility] Work Phone: Erythrocyte distribution width (RBC) [Ratio] 15.3 % 11.6-14.6 [facility] Work Phone: MCH (RBC) [Entitic mass] 29.2 pg 27.0-32.0 [facility] Work Phone: MCHC Auto (RBC) [Mass/Vol]on 08-24-2021 MCHC (RBC) [Mass/Vol] 32.0 g/dL 32-36 [facility] Work Phone: No Panel Informationon 08-24 Estimated GFR (MDRD) Amer 102 mL/min >60 [facility] Work Phone: Comment on above: GFR Calc Estimated GFR (MDRD) Non-Af Amer 84 mL/min >60 [facility] Work Phone: Comment on above: Non- GFR Calc Thyroid Stimulating Hormone (TSH) 4.64 uIU/mL 0.358-3.74 [facility] Work Phone: Platelets bldon 08-24-2021 Platelets (Bld) [#/Vol] 306 10*3/uL 150-450 [facility] Work Phone: Serum or plasma albumin love urement (mass/volume)on 08-24-2021 Albumin [Mass/Vol] 3.2 g/dL 3.2-5.0 [facility] Work Phone: Serum or plasma albumin/glob ulin mass ratioon 08-24-2021 Albumin/Globulin [Mass ratio] 0.8 {ratio} 0.9-2.4 [facility] Work Phone: Serum or plasma calcium love urement (mass/volume)on 08-24-2021 Calcium [Mass/Vol] 8.7 mg/dL 8.5-10.1 [facility] Work Phone: Serum or plasma cholesterol in HDL measurement (mass/volume)on 08-24-2021 Cholesterol in HDL [Mass/Vol] 47 mg/dL [facility] Work Phone: Comment on above: The drugs N-Acetylcy steine and Metamizole may falsely depress this assay. Reference Range HDL <40 mg/dL Low HDL Cholesterol HDL >or= 60 mg/dL High HDL Cholesterol Serum or plasma cholesterol in VLDL measurement (mass/volume)on 08-24-2021 Cholesterol in VLDL [Mass/Vol] 43 mg/dL 5-40 [facility] Work Phone: Serum or plasma creatinine m easurement (mass/volume)on 08-24-2021 Creatinine [Mass/Vol] 0.72 mg/dL 0.55-1.02 [facility] Work Phone: Comment on above: The validity of the calculated GFR & GFRAA in patients over 70 years has not been determined. Clinical correlation is essential. Serum or plasma low density lipoprotein (LDL) cholesterol measurement (mass/volume)on 08-24-2021 Cholesterol in LDL [Mass/Vol] 95 mg/dL 0-130 [facility] Work Phone: Serum or plasma urea nitroge n measurement (mass/volume)on 08-24-2021 Urea nitrogen [Mass/Vol] 17 mg/dL 7-18 [facility] Work Phone: Thin prep Papanicolaou smear with manual screeningon 08-24-2021 Thin prep Papanicolaou smear with manual screening 16 U/L 15-37 [facility] Work Phone: Thin prep Papanicolaou smear with manual screening 7 5-15 [facility] Work Phone: No Panel Informationon 08-09 Valproic Acid (Depakene) Level 47 ug/mL 50-100 [facility] Work Phone: Basic Metabolic Panel w/ Ref taiwo to MGOrdered By: Pricila Mcleod on 12-02-2020 Anion gap [Moles/Vol] 6 mmol/L 3 - 13 mmol/L [facility] Work Phone: Calcium [Mass/Vol] 9.1 mg/dL 8.4 - 10. 4 mg/dL [facility] Work Phone: Chloride [Moles/Vol] 109 mmol/L High 98 - 10 7 mmol/L [facility] Work Phone: CO2 [Moles/Vol] 21 mmol/L Low 22 - 30 mmol/L [facility] Work Phone: Creatinine [Mass/Vol] 0.46 mg/dL Low 0.52 - 1.25 mg/dL [facility] Work Phone: EGFR IF NonAfrican Estonian >90.0 >60 mL/min [facility] Work Phone: Comment on above: KDIGO guidelines pro vide the following GFR categories: Stage GFR(ml/min/1.73 m2) Terms G1 >=90 Normal or high G2 60-89 Mildly decreased* G3a 45-59 Mildly to moderately decreased G3b 30-44 Moderately to severely decreased G4 15-29 Severely decreased G5 <15 Kidney failure *Relative to young adult level. In the absence of evidence of kidney damage, neither GFR category G1 nor G2 fulfill the criteria for CKD. The CKD-EPI equation is validated in individuals 18 years of age and older. Currently the best equation for estimating glomerular filtration rate (GFR) from serum creatinine in children is the Bedside Moss equation. It is less accurate in patients with extremes of muscle mass, restriction of dietary protein, ingestion of creatine, extra-renal metabolism of creatinine, or treatment with medications that affect renal tubular creatinine secretion. GFR/1.73 sq M.predicted among blacks MDRD (S/P/Bld) [Vol rate/Area] mL/min/{1.73_m2} >60 mL/min [facility] Work Phone: Glucose [Mass/Vol] 99 mg/dL 70 - 100 mg/dL [facility] Work Phone: Interpretation and review of laboratory results Abnormal [facility] Work Phone: Potassium [Moles/Vol] 4.1 mmol/L 3.5 - 5.1 mmol/L [facility] Work Phone: Sodium [Moles/Vol] 136 mmol/L 135 - 145 mmol/L [facility] Work Phone: Urea nitrogen (BldV) [Mass/Vol] 8 mg/dL 7 - 20 mg/dL [facility] Work Phone: Test Performed by [employer], [address] [place], [place] [address] [facility] Work Phone: CBC Auto DifferentialOrdered By: Pricila Mcleod on 12-02-2020 Absolute Baso # 0.1 10*3/uL 0.0 - 0.2 10*3/uL [facility] Work Phone: Absolute Neut # 6.7 10*3/uL 1.8 - 7.0 10*3/uL [facility] Work Phone: Basophils/100 WBC (Bld) 1.0 % 0.0 - 2.0 % [facility] Work Phone: Eosinophils (Bld) [#/Vol] 0.5 10*3/uL 0.0 - 0.5 10*3/uL [facility] Work Phone: Eosinophils/100 WBC (Bld) 4.5 % 1.0 - 6.0 % [facility] Work Phone: Granulocytes/100 WBC (Bld) 60.5 % 40.0 - 80.0 % [facility] Work Phone: Hematocrit (Bld) [Volume fraction] 36.6 % 35.0 - 47.0 % [facility] Work Phone: Hemoglobin.gastrointesti nal spec 1 Ql (Stl) 11.8 g/dL 11.7 - 16.0 g/dL [facility] Work Phone: Interpretation and review of laboratory results Abnormal [facility] Work Phone: Lymphocytes (Bld) [#/Vol] 2.8 10*3/uL 1.0 - 4.3 10*3/uL [facility] Work Phone: Lymphocytes/100 WBC (Bld) 25.1 % 20.0 - 40.0 % [facility] Work Phone: MCH (RBC) [Entitic mass] 27.7 pg 26. 0 - 34.0 pg [facility] Work Phone: MCHC (RBC) [Mass/Vol] 32.2 % 32.0 - 36.0 % [facility] Work Phone: MCV (RBC) [Entitic vol] 86.2 fL 79.0 - 98.0 fL [facility] Work Phone: Monocytes (Bld) [#/Vol] 1.0 10*3/uL High 0.0 - 0.8 10*3/uL [facility] Work Phone: Monocytes/100 WBC (Bld) 8.9 % 2.0 - 10.0 % [facility] Work Phone: Platelet distribution width (Bld) [Ratio] 16.4 % High 11.5 - 14.5 % [facility] Work Phone: Platelet mean volume (Bld) [Entitic vol] 8.1 fL 7.4 - 10.4 fL [facility] Work Phone: Platelets (Bld) [#/Vol] 355 10*3/uL 140 - 440 10*3/uL [facility] Work Phone: RBC (Bld) [#/Vol] 4.25 10*6/uL 3.80 - 5.2 0 10*6/uL [facility] Work Phone: WBC (Bld) [#/Vol] 11.2 10*3/uL High 3.6 - 10.7 10*3/uL [facility] Work Phone: Test Performed by [facility], [address] [place] [address] [place], [place] [address] [facility] Work Phone: Special treatments and proce duresOrdered By: Pricila Mcleod on 12-02-2020 Patient Name: UBALDO ARANGO Special Procedures ACCESSION EXAM DATE/TIME PROCEDURE ORDERING PROVIDER [id number] 12/02/2020 15:39 EDT XA Special Angiography 58Sunny PRICILA JIN Procedure Reason For Exam (XA Special Angiography Procedure) PICC line for IV Antibiotics; pt will likely need sedation for procedure Report Reason for examination: Need for long-term intravenous access. After obtaining consent, ultrasound with sterile gel/probe cover was used to identify a brachial vein, which was patent. Image capture performed. Following sterile preparation, and sterile draping with hand hygiene/sterile gloves and masks and hats with sterile gown/barrier with 2%chlorhexidine skin prep, local anesthetic administration, with direct ultrasound guidance, the venipuncture was performed with a micro stick system, and then 0.18 guide wire was placed (an image was saved to confirm vein patency and needle placement). The sheath-dilator was then placed in the vein. Through this a 5 Divehi double lumen PICC line was inserted. The tip of the PICC catheter was positioned in the superior vena cava under fluoroscopy. Catheter position was confirmed with a digital spot film. Both ports flush and aspirate well. The catheter was affixed on the skin surface. The patient tolerated procedure and there are no immediate complications. IMPRESSION: Satisfactory placement of right arm PICC line. 0.2 minutes fluoro time . One stored fluoroscopic image obtained. No additional exposure images. Catheter is ready for use Report Dictated on --- Final --- Dictating Physician: MD BHATTI WILLIAM Signed Date and Time: 12/02/2020 3:46 pm Signed by: MD BHATTI WILLIAM Transcribed Date and Time: 12/02/2020 3:48 [facility] Work Phone: Mahin, Roxanaa Incoming Radiology Results From [facility] - 12/02/2020 3:48 PM EDT Patient Name: UBALDO ARANGO Special Procedures ACCESSION EXAM DATE/TIME PROCEDURE ORDERING PROVIDER [id number] 12/02/2020 15:39 EDT XA Special Angiography PRICILA MARIE Procedure Reason For Exam (XA Special Angiography Procedure) PICC line for IV Antibiotics; pt will likely need sedation for procedure 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 After obtaining consent, ultrasound with sterile gel/probe cover was used to identify a brachial vein, which was patent. Image capture performed. Following sterile preparation, and sterile draping with hand hygiene/sterile gloves and masks and hats with sterile gown/barrier with 2%chlorhexidine skin prep, local anesthetic administration, with direct ultrasound guidance, the venipuncture was performed with a micro stick system, and then 0.18 guide wire was placed (an image was saved to confirm vein patency and needle placement). The sheath-dilator was then placed in the vein. Through this a 5 Divehi double lumen PICC line was inserted. The tip of the PICC catheter was positioned in the superior vena cava under fluoroscopy. Catheter position was confirmed with a digital spot film. Both ports flush and aspirate well. The catheter was affixed on the skin surface. The patient tolerated procedure and there are no immediate complications. IMPRESSION: Satisfactory placement of right arm PICC line. 0.2 minutes fluoro time . One stored fluoroscopic image obtained. No additional exposure images. Catheter is ready for use Report Dictated on --- Final --- Dictating Physician: MD BHATTI WILLIAM Signed Date and Time: 12/02/2020 3:46 pm Signed by: MD BHATTI WILLIAM Transcribed Date and Time: 12/02/2020 3:48 [facility] Work Phone: Vancomycin, TroughOrdered By : Naz Madera on 12-02-2020 Vancomycin Tr 19.1 ug/mL 15.0 - 20.0 ug/mL [facility] Work Phone: Comment on above: . Test Performed by [employer], [address] [place], [place] [address] [facility] Work Phone: Basic Metabolic Panel w/ Ref taiwo to MGOrdered By: Pricila Mcleod on 12-01-2020 Anion gap [Moles/Vol] 5 mmol/L 3 - 13 mmol/L [facility] Work Phone: Calcium [Mass/Vol] 9.1 mg/dL 8.4 - 10. 4 mg/dL [facility] Work Phone: Chloride [Moles/Vol] 110 mmol/L High 98 - 10 7 mmol/L [facility] Work Phone: CO2 [Moles/Vol] 23 mmol/L 22 - 30 mmol/L [facility] Work Phone: Creatinine [Mass/Vol] 0.47 mg/dL Low 0.52 - 1.25 mg/dL [facility] Work Phone: EGFR IF NonAfrican Estonian >90.0 >60 mL/min [facility] Work Phone: Comment on above: KDIGO guidelines pro vide the following GFR categories: Stage GFR(ml/min/1.73 m2) Terms G1 >=90 Normal or high G2 60-89 Mildly decreased* G3a 45-59 Mildly to moderately decreased G3b 30-44 Moderately to severely decreased G4 15-29 Severely decreased G5 <15 Kidney failure *Relative to young adult level. In the absence of evidence of kidney damage, neither GFR category G1 nor G2 fulfill the criteria for CKD. The CKD-EPI equation is validated in individuals 18 years of age and older. Currently the best equation for estimating glomerular filtration rate (GFR) from serum creatinine in children is the Bedside Moss equation. It is less accurate in patients with extremes of muscle mass, restriction of dietary protein, ingestion of creatine, extra-renal metabolism of creatinine, or treatment with medications that affect renal tubular creatinine secretion. GFR/1.73 sq M.predicted among blacks MDRD (S/P/Bld) [Vol rate/Area] mL/min/{1.73_m2} >60 mL/min [facility] Work Phone: Glucose [Mass/Vol] 98 mg/dL 70 - 100 mg/dL [facility] Work Phone: Interpretation and review of laboratory results Abnormal [facility] Work Phone: Potassium [Moles/Vol] 3.9 mmol/L 3.5 - 5.1 mmol/L [facility] Work Phone: Sodium [Moles/Vol] 138 mmol/L 135 - 145 mmol/L [facility] Work Phone: Urea nitrogen (BldV) [Mass/Vol] 12 mg/dL 7 - 20 mg/dL [facility] Work Phone: Test Performed by [facility], [address], [place], [place] [address] [facility] Work Phone: CBC Auto DifferentialOrdered By: Pricila Mcleod on 12-01-2020 Hematocrit (Bld) [Volume fraction] 35.8 % 35.0 - 47.0 % [facility] Work Phone: Hemoglobin.gastrointesti nal spec 1 Ql (Stl) 11.7 g/dL 11.7 - 16.0 g/dL [facility] Work Phone: MCH (RBC) [Entitic mass] 27.9 pg 26. 0 - 34.0 pg [facility] Work Phone: MCHC (RBC) [Mass/Vol] 32.7 % 32.0 - 36.0 % [facility] Work Phone: MCV (RBC) [Entitic vol] 85.1 fL 79.0 - 98.0 fL [facility] Work Phone: Platelet distribution width (Bld) [Ratio] 16.4 % High 11.5 - 14.5 % [facility] Work Phone: Platelet mean volume (Bld) [Entitic vol] 9.6 fL 7.4 - 10.4 fL [facility] Work Phone: Platelets (Bld) [#/Vol] 302 10*3/uL 140 - 440 10*3/uL [facility] Work Phone: Comment on above: Giant and large plat elets noted. Revised: Comment was added, verified by KMM at 16:20 on 11/30/20 RBC (Bld) [#/Vol] 4.20 10*6/uL 3.80 - 5.2 0 10*6/uL [facility] Work Phone: WBC (Bld) [#/Vol] 11.7 10*3/uL High 3.6 - 10.7 10*3/uL [facility] Work Phone: Comment on above: Leukocytosis with le ft shift neutrophilia, circulating plasma cells and red cell anisocytosis with agglutination. R/O infection, blood loss/coagulopathy, evolving iron/nutritional deficiencies and/or paraproteinemia. 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 0 - 34.0 pg [facility] Work Phone: MCHC (RBC) [Mass/Vol] 32.7 % 32.0 - 36.0 % [facility] Work Phone: MCV (RBC) [Entitic vol] 84.6 fL 79.0 - 98.0 fL [facility] Work Phone: Platelet distribution width (Bld) [Ratio] 16.7 % High 11.5 - 14.5 % [facility] Work Phone: Platelet mean volume (Bld) [Entitic vol] 8.5 fL 7.4 - 10.4 fL [facility] [employer] Work Phone: Platelets (Bld) [#/Vol] 282 10*3/uL 140 - 440 10*3/uL [facility] Work Phone: RBC (Bld) [#/Vol] 4.31 10*6/uL 3.80 - 5.2 0 10*6/uL [facility] Work Phone: WBC (Bld) [#/Vol] 11.3 10*3/uL High 3.6 - 10.7 10*3/uL [facility] Work Phone: Culture, BloodOrdered By: Do bertha Christy on 12-01-2020 Blood Culture, Routine Staphylococcus epidermidis DETECTED; mecA/C DETECTED. Proteus species DETECTED. Presumptive identification performed using [employer] PCR methodology; confirmatory identification to follow. _ The [employer] BCID2 PCR Panel can detect the following targets: E. faecalis, E. faecium, Staphylococcus spp., S. aureus, S. epidermidis, S. lugdunensis, Streptococcus spp., S. pyogenes (Group A), S. agalactiae (Group B), S. pneumoniae, A. baumannii complex, B. fragilis, H. influenzae, N. meningitidis (encapsulated), P. aeruginosa, S. maltophilia, Enterobacterales, E. cloacae complex, E. coli, K. aerogenes, K. oxytoca, K. pneumoniae, Proteus spp., Salmonella spp., S. marcescens, C. albicans, C. auris, C. glabrata, C. krusei, C. parapsilosis, C. tropicalis, C. neoformans/gattii, and antimicrobial resistance genes: mecA/C, Jason/B, CTX-M, IMP, KPC, NDM, OXA-48-like, VIM, and mcr-1. Abnormal [employer] Phone: Blood Culture, Routine Staphylococcus epidermidis Abnormal [employer] Phone: Blood Culture, Routine Isolated: [employer] Work Phone: Blood Culture, Routine Proteus mirabilis Abnormal [employer] Phone: Blood Culture, Routine Staphylococcus hominis Abnormal [employer] Phone: Blood Culture, Routine Negative Abnormal [employer] [employer] Work Phone: Blood Culture, Routine Isolated: Possible identification: Staphylococcus pettenkoferi Contamination likely unless additional blood culture sets are found to be positive with the same organism. [employer] Phone: Interpretation and review of laboratory results Abnormal [employer] Phone: Test Performed by [facility] [employer] [facility], [address] [place] [id number] [employer] Phone: Culture, Blood 2Ordered By: Belinda Christy on 12-01-2020 Blood Culture, Routine Staphylococcus epidermidis Abnormal [employer] Phone: Blood Culture, Routine Isolated: For identification and/or sensitivity, refer to culture collected on: 11/27/2020 at 07:48 [[id number]]. [employer] Work Phone: Blood Culture, Routine Proteus mirabilis Abnormal [facility] Work Phone: Blood Culture, Routine Staphylococcus hominis Abnormal [facility] [employer] Work Phone: Interpretation and review of laboratory results Abnormal [facility] [employer] Work Phone: Test Performed by [facility] [address] [address] [facility] Work Phone: Manual DifferentialOrdered B y: Pricila Mcleod on 12-01-2020 Absolute Baso # 0.0 10*3/uL 0.0 - 0.2 10*3/uL [facility] [employer] Work Phone: Absolute Eos # 0.5 10*3/uL 0.0 - 0.5 10*3/uL [facility] Work Phone: Absolute Lymph # 3.6 10*3/uL 1.1 - 4.5 10*3/uL [facility] Work Phone: Absolute [place] # 0.9 10*3/uL 0.2 - 1.1 10*3/uL [facility] Work Phone: Absolute Neut # 6.1 10*3/uL 2.2 - 8.2 10*3/uL [facility] Work Phone: Anisocytosis Slight [facility] Work Phone: Atypical Lymphocytes 1 % Abnormal <1 [facility] Work Phone: Bands 0 % 0 - 3 % [facility] Work Phone: Basophils/100 WBC (Bld) 0 % 0 - 2 % [facility] Work Phone: Eosinophils/100 WBC (Bld) 4 % 1 - 6 % [facility] Work Phone: Lymphocytes/100 WBC (Bld) 30 % 20 - 40 % [facility] Work Phone: Metamyelocytes 1 % Abnormal <1 [facility] Work Phone: Monocytes/100 WBC (Bld) 8 % 2 - 10 % [facility] Work Phone: Myelocytes 2 % Abnormal <1 [facility] Work Phone: [phone] nRBC 1 /100{WBCs} High -1 - 0 /100{WBCs} [facility] Work Phone: Comment on above: [place] (<60 days) 1 -10 Adult <1 Other Cells, Blood 2 % Abnormal <1 [facility] Work Phone: Ovalocytes Slight [facility] Work Phone: RBC (Bld) [#/Vol] ABNORMAL [facility] Work Phone: Seg Neutrophils 52 % 40 - 80 % [facility] Work Phone: [phone] TOTAL CELLS COUNTED 100 [facility] Work Phone: [phone] Absolute Baso # 0.0 10*3/uL 0.0 - 0.2 10*3/uL [facility] Work Phone: [phone] Absolute Eos # 0.6 10*3/uL High 0.0 - 0.5 10*3/uL [facility] Work Phone: [phone] Absolute Lymph # 3.5 10*3/uL 1.1 - 4.5 10*3/uL [facility] Work Phone: Absolute [place] # 0.9 10*3/uL 0.2 - 1.1 10*3/uL [facility] Work Phone: [phone] Absolute Neut # 6.3 10*3/uL 2.2 - 8.2 10*3/uL [facility] Work Phone: Anisocytosis Slight [facility] Work Phone: Atypical Lymphocytes 2 % Abnormal <1 [facility] Work Phone: Bands 1 % 0 - 3 % [facility] Work Phone: Basophils/100 WBC (Bld) 0 % 0 - 2 % [facility] Work Phone: Eosinophils/100 WBC (Bld) 5 % 1 - 6 % [facility] Work Phone: Lymphocytes/100 WBC (Bld) 29 % 20 - 40 % [facility] Work Phone: [phone] Monocytes/100 WBC (Bld) 8 % 2 - 10 % [facility] Work Phone: [phone] Ovalocytes Slight [facility] Work Phone: [phone] Poikilocytes Slight [facility] Work Phone: [phone] RBC (Bld) [#/Vol] ABNORMAL [facility] Work Phone: [phone] Seg Neutrophils 55 % 40 - 80 % [facility] Work Phone: [phone] TOTAL CELLS COUNTED 100 [facility] Work Phone: [phone] No Panel InformationOrdered By: Pricila Mcleod on 12-01-2020 Interpretation and review of laboratory results Abnormal [facility] [employer] Work Phone: [phone] Test Performed by [facility] [employer] [facility], [address] [place] [address] [facility] [employer] Work Phone: [phone] Interpretation and review of laboratory results Abnormal [facility] Work Phone: [phone] Test Performed by [employer], [address] [place] [address] [facility] [employer] Work Phone: [phone] PROCALCITONINOrdered By: Agnes Mcleod on 12-01-2020 Interpretation See Below [facility] [employer] Work Phone: [phone] Comment on above: PCT <0.50 = Low risk of severe sepsis and/or septic shock. PCT >2.00 = High risk of severe sepsis and/or septic shock. Interpretation and review of laboratory results Abnormal [facility] Work Phone: [phone] Procalcitonin 1.07 ng/mL Abnormal <0.10 [facility] Work Phone: [phone] Test Performed by [employer], [address] [place] [address] [facility] Work Phone: Basic Metabolic Panel w/ Ref taiwo to MGOrdered By: Pricila Mcleod on 11-30-2020 Anion gap [Moles/Vol] 5 mmol/L 3 - 13 mmol/L [facility] Work Phone: Calcium [Mass/Vol] 9.3 mg/dL 8.4 - 10. 4 mg/dL [facility] Work Phone: Chloride [Moles/Vol] 106 mmol/L 98 - 10 7 mmol/L [facility] Work Phone: CO2 [Moles/Vol] 27 mmol/L 22 - 30 mmol/L [facility] Work Phone: Creatinine [Mass/Vol] 0.5 mg/dL Low 0.52 - 1.25 mg/dL [facility] Work Phone: EGFR IF NonAfrican Estonian >90.0 >60 mL/min [facility] Work Phone: Comment on above: KDIGO guidelines pro vide the following GFR categories: Stage GFR(ml/min/1.73 m2) Terms G1 >=90 Normal or high G2 60-89 Mildly decreased* G3a 45-59 Mildly to moderately decreased G3b 30-44 Moderately to severely decreased G4 15-29 Severely decreased G5 <15 Kidney failure *Relative to young adult level. In the absence of evidence of kidney damage, neither GFR category G1 nor G2 fulfill the criteria for CKD. The CKD-EPI equation is validated in individuals 18 years of age and older. Currently the best equation for estimating glomerular filtration rate (GFR) from serum creatinine in children is the Bedside Moss equation. It is less accurate in patients with extremes of muscle mass, restriction of dietary protein, ingestion of creatine, extra-renal metabolism of creatinine, or treatment with medications that affect renal tubular creatinine secretion. GFR/1.73 sq M.predicted among blacks MDRD (S/P/Bld) [Vol rate/Area] mL/min/{1.73_m2} >60 mL/min [facility] Work Phone: Glucose [Mass/Vol] 103 mg/dL High 70 - 100 mg/dL [facility] Work Phone: Interpretation and review of laboratory results Abnormal [facility] Work Phone: Potassium [Moles/Vol] 4.0 mmol/L 3.5 - 5.1 mmol/L [facility] Work Phone: Sodium [Moles/Vol] 139 mmol/L 135 - 145 mmol/L [facility] Work Phone: Urea nitrogen (BldV) [Mass/Vol] 16 mg/dL 7 - 20 mg/dL [facility] Work Phone: Test Performed by [employer], [address] [place], [place] [address] [facility] Work Phone: Vancomycin, TroughOrdered By : Naz Madera on 11-30-2020 Interpretation and review of laboratory results Abnormal [facility] Work Phone: Vancomycin Tr 11.5 ug/mL Low 15.0 - 20.0 ug/mL [facility] Work Phone: Comment on above: . Test Performed by [employer], [address] [place], [place] [address] [facility] Work Phone: Basic Metabolic PanelOrdered By: Naz Madera on 11-29-2020 Anion gap [Moles/Vol] 5 mmol/L 3 - 13 mmol/L [facility] Work Phone: Calcium [Mass/Vol] 9.3 mg/dL 8.4 - 10. 4 mg/dL [facility] Work Phone: Chloride [Moles/Vol] 105 mmol/L 98 - 10 7 mmol/L [facility] Work Phone: CO2 [Moles/Vol] 25 mmol/L 22 - 30 mmol/L [facility] Work Phone: Creatinine [Mass/Vol] 0.62 mg/dL 0.52 - 1.25 mg/dL [facility] Work Phone: EGFR IF NonAfrican Estonian >90.0 >60 mL/min [facility] Work Phone: Comment on above: KDIGO guidelines pro vide the following GFR categories: Stage GFR(ml/min/1.73 m2) Terms G1 >=90 Normal or high G2 60-89 Mildly decreased* G3a 45-59 Mildly to moderately decreased G3b 30-44 Moderately to severely decreased G4 15-29 Severely decreased G5 <15 Kidney failure *Relative to young adult level. In the absence of evidence of kidney damage, neither GFR category G1 nor G2 fulfill the criteria for CKD. The CKD-EPI equation is validated in individuals 18 years of age and older. Currently the best equation for estimating glomerular filtration rate (GFR) from serum creatinine in children is the Bedside Moss equation. It is less accurate in patients with extremes of muscle mass, restriction of dietary protein, ingestion of creatine, extra-renal metabolism of creatinine, or treatment with medications that affect renal tubular creatinine secretion. GFR/1.73 sq M.predicted among blacks MDRD (S/P/Bld) [Vol rate/Area] mL/min/{1.73_m2} >60 mL/min [facility] Work Phone: Glucose [Mass/Vol] 95 mg/dL 70 - 100 mg/dL [facility] Work Phone: Potassium [Moles/Vol] 4.3 mmol/L 3.5 - 5.1 mmol/L [facility] Work Phone: Sodium [Moles/Vol] 135 mmol/L 135 - 145 mmol/L [facility] Work Phone: Urea nitrogen (BldV) [Mass/Vol] 19 mg/dL 7 - 20 mg/dL [facility] Work Phone: CBC Auto DifferentialOrdered By: Naz Madera on 11-29-2020 Absolute Baso # 0.1 10*3/uL 0.0 - 0.2 10*3/uL [facility] Work Phone: Absolute Neut # 6.8 10*3/uL 1.8 - 7.0 10*3/uL [facility] Work Phone: Basophils/100 WBC (Bld) 0.6 % 0.0 - 2.0 % [facility] Work Phone: Eosinophils (Bld) [#/Vol] 0.1 10*3/uL 0.0 - 0.5 10*3/uL [facility] Work Phone: Eosinophils/100 WBC (Bld) 0.8 % Low 1.0 - 6.0 % [facility] Work Phone: Granulocytes/100 WBC (Bld) 62.0 % 40.0 - 80.0 % [facility] Work Phone: Hematocrit (Bld) [Volume fraction] 36.0 % 35.0 - 47.0 % [facility] Work Phone: Hemoglobin.gastrointesti nal spec 1 Ql (Stl) 12.0 g/dL 11.7 - 16.0 g/dL [facility] Work Phone: Interpretation and review of laboratory results Abnormal [facility] Work Phone: Lymphocytes (Bld) [#/Vol] 2.2 10*3/uL 1.0 - 4.3 10*3/uL [facility] Work Phone: Lymphocytes/100 WBC (Bld) 20.4 % 20.0 - 40.0 % [facility] Work Phone: MCH (RBC) [Entitic mass] 28.9 pg 26. 0 - 34.0 pg [facility] Work Phone: MCHC (RBC) [Mass/Vol] 33.4 % 32.0 - 36.0 % [facility] Work Phone: MCV (RBC) [Entitic vol] 86.5 fL 79.0 - 98.0 fL [facility] Work Phone: Monocytes (Bld) [#/Vol] 1.8 10*3/uL High 0.0 - 0.8 10*3/uL [facility] Work Phone: Monocytes/100 WBC (Bld) 16.2 % High 2.0 - 10.0 % [facility] Work Phone: Platelet distribution width (Bld) [Ratio] 16.6 % High 11.5 - 14.5 % [facility] Work Phone: Platelet mean volume (Bld) [Entitic vol] 8.0 fL 7.4 - 10.4 fL [facility] Work Phone: Platelets (Bld) [#/Vol] 214 10*3/uL 140 - 440 10*3/uL [facility] Work Phone: RBC (Bld) [#/Vol] 4.16 10*6/uL 3.80 - 5.2 0 10*6/uL [facility] Work Phone: WBC (Bld) [#/Vol] 11.0 10*3/uL High 3.6 - 10.7 10*3/uL [facility] Work Phone: Test Performed by [employer], [address] [place] [address] [facility] Work Phone: Culture, UrineOrdered By: Do bertha Christy on 11-29-2020 Bacteria identified Cx Nom (U) Escherichia coli Abnormal [facility] Work Phone: Bacteria identified Cx Nom (U) >100,000 CFU/ml This phenotype is suggestive of an ESBL-producing organism. Treatment with beta-lactam antibiotics other than carbapenems may not be effective. An ID consult may be warranted. [facility] Work Phone: Interpretation and review of laboratory results Abnormal [facility] Work Phone: Test Performed by [employer], [address] [place] [id number] [facility] Work Phone: ECHO Complete 2D W Doppler W ColorOrdered By: Naz Madera on 11-29-2020 TRANSTHORACIC ECHOCARDIOGRAM PATIENT: Ubaldo Arango STUDY DATE: 11/29/2020 : 1950 AGE: 70 HT/WT: 157.5 cm (62 82.6 kg in) (181.6 lb) GENDER: F BP: 146 / 72 LOCATION: [facility] [employer] [facility] PATIENT [facility] STATUS: *ORDERING PHYSICIAN: * Naz Madera *READING PHYSICIAN: * Nithin *EXTRA HAND: * Delphine Pappas, DO, FSVM, FACC RDCS, AE, CCT, RCS INDICATIONS: SOB/Hypoxia. CONCLUSIONS SUMMARY: 1. Left ventricle: Systolic function is normal by the biplane method of disks. The estimated ejection fraction is 67%. 2. Right ventricle: The cavity size is mildly dilated. Systolic function is mildly decreased by visual assessment. Right ventricular systolic pressure is within the normal range. 3. Left atrium: The atrium is normal in size. 4. Right atrium: The atrium is normal in size. 5. Tricuspid valve: There is mild, 1+ regurgitation. 6. Aorta: The aorta is normal. 7. Pericardium, extracardiac: A possible pericardial effusion is present. 8. Inferior vena cava: The vessel is normal in size. STUDY DATA: Complete transthoracic echocardiogram. Procedure: Image quality was suboptimal. The study was technically limited due to poor patient compliance, body habitus, and respiratory interference. Intravenous imaging enhancement (Definity) was administered. Definity lot #: [id number]. M-mode, complete 2D, complete spectral Doppler, and color flow Doppler images were acquired and archived for permanent storage and are available for subsequent review. Study status: Routine. Patient status: Inpatient. FINDINGS LEFT VENTRICLE: The cavity size is normal. Wall thickness is mildly increased. Systolic function is normal by the biplane method of disks. The estimated ejection fraction is 67%. There are no regional wall motion abnormalities. Left ventricular diastolic function parameters are normal. RIGHT VENTRICLE: The cavity size is mildly dilated. Systolic function is mildly decreased by visual assessment. Right ventricular systolic pressure is within the normal range. VENTRICULAR SEPTUM: There is no evidence of a ventricular septal defect. LEFT ATRIUM: The atrium is normal in size. RIGHT ATRIUM: The atrium is normal in size. ATRIAL SEPTUM: Color Doppler shows no shunt. MITRAL VALVE: Not well visualized. Calcified annulus. Mildly thickened leaflets. Doppler: There is trivial, less than 1+ regurgitation. The peak diastolic gradient is 4 mm Hg. AORTIC VALVE: Not well visualized. Trileaflet. Doppler: There is no regurgitation. TRICUSPID VALVE: Not well visualized. Doppler: There is mild, 1+ regurgitation. PULMONIC VALVE: Not well visualized. Doppler: There is no regurgitation. AORTA: The aorta is normal. PULMONARY ARTERY: Main pulmonary artery: Normal. PERICARDIUM: A possible pericardial effusion is present. SYSTEMIC VEINS: Inferior vena cava: The vessel is normal in size. Measurements Value Reference Ascending aorta ID, A-P, S 2.6 cm --------- Ascending aorta ID/bsa, A-P, S 1.3 cm/m^2 --------- Left ventricle Value Reference LV ID, ED 4.3 cm 3.8 - 5.2 LV ID, ES 3.4 cm 2.2 - 3.5 LV ID/bsa, ED (L) 2.2 cm/m^2 2.3 - 3.1 LV ID/bsa, ES 1.8 cm/m^2 1.3 - 2.1 LV PW thickness, ED (H) 1.3 cm 0.6 - 0.9 LV PW/LV ID ratio, ED 0.31 --------- LV wall mass (H) 220 g 66 - 150 LV wall mass/bsa (H) 114 g/m^2 44 - 88 Stroke volume/bsa, 1-p A2C 17.1 ml/m^2 --------- LV end-diastolic volume, 1-p A4C 77 ml 48 - 140 LV end-systolic volume, 1-p A4C 24 ml 12 - 60 LV end-diastolic volume, 2-p 65 ml 46 - 106 LV end-systolic volume, 2-p 21 ml 14 - 42 LV ejection fraction, 2-p 67 % 54 - 74 LV E/e', lateral 16 --------- LV E/e', medial 14 --------- LV E/e', average 14.9 --------- Ventricular septum Value (more content not included)... [facility] Work Phone: Mahin, Perfect Incoming Cardiology Results From [employer] - 11/29/2020 11:04 AM EDT TRANSTHORACIC ECHOCARDIOGRAM PATIENT: Ubaldo Arango STUDY DATE: 11/29/2020 : 1950 AGE: 70 HT/WT: 157.5 cm (62 82.6 kg in) (181.6 lb) GENDER: F BP: 146 / 72 LOCATION: [facility] PATIENT Inpatient [facility] STATUS: *ORDERING PHYSICIAN: * Naz Madera *READING PHYSICIAN: * Nithin OvalleEXTRA HAND: * Delphine Pappas, , FSVM, FACC RDCS, AE, CCT, RCS INDICATIONS: SOB/Hypoxia. CONCLUSIONS SUMMARY: 1. Left ventricle: Systolic function is normal by the biplane method of disks. The estimated ejection fraction is 67%. 2. Right ventricle: The cavity size is mildly dilated. Systolic function is mildly decreased by visual assessment. Right ventricular systolic pressure is within the normal range. 3. Left atrium: The atrium is normal in size. 4. Right atrium: The atrium is normal in size. 5. Tricuspid valve: There is mild, 1+ regurgitation. 6. Aorta: The aorta is normal. 7. Pericardium, extracardiac: A possible pericardial effusion is present. 8. Inferior vena cava: The vessel is normal in size. STUDY DATA: Complete transthoracic echocardiogram. Procedure: Image quality was suboptimal. The study was technically limited due to poor patient compliance, body habitus, and respiratory interference. Intravenous imaging enhancement (Definity) was administered. Definity lot #: [id number]. M-mode, complete 2D, complete spectral Doppler, and color flow Doppler images were acquired and archived for permanent storage and are available for subsequent review. Study status: Routine. Patient status: Inpatient. FINDINGS LEFT VENTRICLE: The cavity size is normal. Wall thickness is mildly increased. Systolic function is normal by the biplane method of disks. The estimated ejection fraction is 67%. There are no regional wall motion abnormalities. Left ventricular diastolic function parameters are normal. RIGHT VENTRICLE: The cavity size is mildly dilated. Systolic function is mildly decreased by visual assessment. Right ventricular systolic pressure is within the normal range. VENTRICULAR SEPTUM: There is no evidence of a ventricular septal defect. LEFT ATRIUM: The atrium is normal in size. RIGHT ATRIUM: The atrium is normal in size. ATRIAL SEPTUM: Color Doppler shows no shunt. MITRAL VALVE: Not well visualized. Calcified annulus. Mildly thickened leaflets. Doppler: There is trivial, less than 1+ regurgitation. The peak diastolic gradient is 4 mm Hg. AORTIC VALVE: Not well visualized. Trileaflet. Doppler: There is no regurgitation. TRICUSPID VALVE: Not well visualized. Doppler: There is mild, 1+ regurgitation. PULMONIC VALVE: Not well visualized. Doppler: There is no regurgitation. AORTA: The aorta is normal. PULMONARY ARTERY: Main pulmonary artery: Normal. PERICARDIUM: A possible pericardial effusion is present. SYSTEMIC VEINS: Inferior vena cava: The vessel is normal in size. Measurements Value Reference Ascending aorta ID, A-P, S 2.6 cm --------- Ascending aorta ID/bsa, A-P, S 1.3 cm/m^2 --------- Left ventricle Value Reference LV ID, ED 4.3 cm 3.8 - 5.2 LV ID, ES 3.4 cm 2.2 - 3.5 LV ID/bsa, ED (L) 2.2 cm/m^2 2.3 - 3.1 LV ID/bsa, ES 1.8 cm/m^2 1.3 - 2.1 LV PW thickness, ED (H) 1.3 cm 0.6 - 0.9 LV PW/LV ID ratio, ED 0.31 --------- LV wall mass (H) 220 g 66 - 150 LV wall mass/bsa (H) 114 g/m^2 44 - 88 Stroke volume/bsa, 1-p A2C 17.1 ml/m^2 --------- LV end-diastolic volume, 1-p A4C 77 ml 48 - 140 LV end-systolic volume, 1-p A4C 24 ml 12 - 60 LV end-diastolic volume, 2-p 65 ml 46 - 106 LV end-systolic volume, 2-p 21 ml 14 - 42 LV ejection fraction, 2-p 67 % 54 - 74 LV E/e', lateral 16 --------- LV E/e', medial 14 --------- LV E/e', average 14.9 --------- Ventricular septum Value Reference IVS thickness, ED (H) 1.3 cm 0.6 - 0.9 LVOT Value Reference LVOT ID, A-P 2.2 cm --------- LVOT mean velocity, S 0.5 m/sec --------- LVOT peak gradient, S 3 mm Hg --------- Stroke volume (SV), LVOT DP 60 ml --------- Stroke index (SV/bsa), LVOT DP 31 ml/m^2 --------- Left atrium Value Reference LA volume/bsa, ES, 2-p 26 ml/m^2 16 - 34 Mitral valve Value Reference Mitral E-wave peak velocity 1 m/sec --------- Mitral A-wave peak velocity 1.2 m/sec --------- Mitral deceleration time 246 ms --------- Mitral peak gradient, D 4 mm Hg --------- Yoana (more content not included)... [facility] Work Phone: Hemoglobin [id number] By: Krishna Madera on 11-29-2020 HbA1c (Bld) [Mass fraction] 5.5 % [facility] Work Phone: Comment on above: Normal less than 5.7 % Prediabetes 5.7% to 6.4% Diabetes 6.5% or higher --HgbA1C levels may not be accurate in patients who have renal disease, received recent blood transfusions, are anemic, or who have dyshemoglobinemia. Magnesium [Mass/Vol] 111 mg/dL [facility] Work Phone: Test Performed by [employer], [address] [place] [phone] [facility] Work Phone: MagnesiumOrdered By: Naz Madera on 11-29-2020 Interpretation and review of laboratory results Abnormal [facility] Work Phone: [phone] Magnesium [Mass/Vol] 2.5 mg/dL High 1.6 - 2 .3 mg/dL [facility] Work Phone: 1 2 No Panel InformationOrdered By: Naz Madera on 11-29-2020 Test Performed by [employer], [address] [place] [address] [facility] Work Phone: 1 2 POCT GlucoseOrdered By: Solomon Madera on 11-29-2020 Glucose [Mass/Vol] 91 mg/dL 70 - 100 mg/dL [facility] Work Phone: 1 2 Comment on above: Test performed by [employer] ucose meter. Results may be 10%-15% lower than serum/plasma values. (CLIA ID [id number]) Test Performed by [employer], [address] [place] [address] [facility] [employer] Work Phone: 1 2 PROCALCITONINOrdered By: Yaniv Madera on 11-29-2020 Interpretation See Below [facility] Work Phone: [phone] Comment on above: PCT <0.50 = Low risk of severe sepsis and/or septic shock. PCT >2.00 = High risk of severe sepsis and/or septic shock. Interpretation and review of laboratory results Abnormal [facility] Work Phone: [phone] Procalcitonin 4.62 ng/mL Abnormal <0.10 [facility] Work Phone: 1 2 Test Performed by [employer], [address] [place] [id number] [facility] Work Phone: [phone] RBC MORPHOLOGYOrdered By: Krishna Madera on 11-29-2020 Anisocytosis Ql (Bld) Slight [facility] Work Phone: [phone] RBC (Bld) [#/Vol] ABNORMAL [facility] Work Phone: [phone] Test Performed by [employer], [address] Work Phone: [phone] Brain Natriuretic PeptideOrd ered By: Naz Madera on 11-28-2020 Interpretation and review of laboratory results Abnormal [facility] Work Phone: Natriuretic peptide B (Bld) [Mass/Vol] 2222 pg/mL High 0 - 125 pg/mL [facility] Work Phone: Test Performed by [employer], [address] [place] [id number] [facility] [employer] Work Phone: CBC Auto DifferentialOrdered By: Naz Madera on 11-28-2020 Absolute Baso # 0.0 10*3/uL 0.0 - 0.2 10*3/uL [facility] Work Phone: Absolute Neut # 11.1 10*3/uL High 1.8 - 7.0 10*3/uL [facility] Work Phone: Basophils/100 WBC (Bld) 0.3 % 0.0 - 2.0 % [facility] Work Phone: Eosinophils (Bld) [#/Vol] 0.0 10*3/uL 0.0 - 0.5 10*3/uL [facility] Work Phone: Eosinophils/100 WBC (Bld) 0.0 % Low 1.0 - 6.0 % [facility] Work Phone: Granulocytes/100 WBC (Bld) 85.9 % High 40.0 - 80.0 % [facility] Work Phone: Hematocrit (Bld) [Volume fraction] 35.0 % 35.0 - 47.0 % [facility] Work Phone: Hemoglobin.gastrointesti nal spec 1 Ql (Stl) 11.6 g/dL Low 11.7 - 16.0 g/dL [facility] Work Phone: Interpretation and review of laboratory results Abnormal [facility] Work Phone: Lymphocytes (Bld) [#/Vol] 0.6 10*3/uL Low 1.0 - 4.3 10*3/uL [facility] Work Phone: Lymphocytes/100 WBC (Bld) 4.5 % Low 20.0 - 40.0 % [facility] Work Phone: MCH (RBC) [Entitic mass] 28.3 pg 26. 0 - 34.0 pg [facility] Work Phone: MCHC (RBC) [Mass/Vol] 33.2 % 32.0 - 36.0 % [facility] Work Phone: MCV (RBC) [Entitic vol] 85.1 fL 79.0 - 98.0 fL [facility] Work Phone: Monocytes (Bld) [#/Vol] 1.2 10*3/uL High 0.0 - 0.8 10*3/uL [facility] Work Phone: Monocytes/100 WBC (Bld) 9.3 % 2.0 - 10.0 % [employer] Phone: Platelet distribution width (Bld) [Ratio] 16.2 % High 11.5 - 14.5 % [facility] Work Phone: Platelet mean volume (Bld) [Entitic vol] 7.7 fL 7.4 - 10.4 fL [facility] Work Phone: Platelets (Bld) [#/Vol] 230 10*3/uL 140 - 440 10*3/uL [facility] Work Phone: RBC (Bld) [#/Vol] 4.11 10*6/uL 3.80 - 5.2 0 10*6/uL [facility] Work Phone: WBC (Bld) [#/Vol] 12.9 10*3/uL High 3.6 - 10.7 10*3/uL [facility] Work Phone: Test Performed by [employer], [address] [place] [address] Str. [place], [place] [address] [facility] Work Phone: Comprehensive Metabolic Pane lOrdered By: Naz Madera on 11-28-2020 Albumin [Mass/Vol] 3.6 g/dL 3.5 - 5.0 g/dL [facility] Work Phone: ALP (Bld) [Catalytic activity/Vol] 83 U/L 38 - 126 U/L [facility] Work Phone: ALT [Catalytic activity/Vol] 18 U/L 0 - 34 U/L [facility] Work Phone: Comment on above: The ALT test is perf ormed by an updated assay method. Please note that the reference intervals have been changed and are now sex specific. Anion gap [Moles/Vol] 3 mmol/L 3 - 13 mmol/L [facility] Work Phone: AST [Catalytic activity/Vol] 40 U/L 15 - 46 U/L [facility] Work Phone: Bilirubin [Mass/Vol] 0.4 mg/dL 0.2 - 1 .3 mg/dL [facility] Work Phone: Calcium [Mass/Vol] 9.3 mg/dL 8.4 - 10. 4 mg/dL [facility] Work Phone: Chloride [Moles/Vol] 107 mmol/L 98 - 10 7 mmol/L [facility] Work Phone: CO2 [Moles/Vol] 29 mmol/L 22 - 30 mmol/L [facility] Work Phone: Creatinine [Mass/Vol] 0.78 mg/dL 0.52 - 1.25 mg/dL [facility] Work Phone: EGFR IF NonAfrican Estonian 76.2 mL/min >60 [facility] Work Phone: Comment on above: KDIGO guidelines pro vide the following GFR categories: Stage GFR(ml/min/1.73 m2) Terms G1 >=90 Normal or high G2 60-89 Mildly decreased* G3a 45-59 Mildly to moderately decreased G3b 30-44 Moderately to severely decreased G4 15-29 Severely decreased G5 <15 Kidney failure *Relative to young adult level. In the absence of evidence of kidney damage, neither GFR category G1 nor G2 fulfill the criteria for CKD. The CKD-EPI equation is validated in individuals 18 years of age and older. Currently the best equation for estimating glomerular filtration rate (GFR) from serum creatinine in children is the Bedside Moss equation. It is less accurate in patients with extremes of muscle mass, restriction of dietary protein, ingestion of creatine, extra-renal metabolism of creatinine, or treatment with medications that affect renal tubular creatinine secretion. Free PSA/Total PSA [Mass fraction] 7.3 g/dL 6.3 - 8.2 g/dL [facility] Work Phone: GFR/1.73 sq M.predicted among blacks MDRD (S/P/Bld) [Vol rate/Area] 88.4 mL/min/{1.73_m2} >60 [facility] [employer] Work Phone: Glucose [Mass/Vol] 132 mg/dL High 70 - 100 mg/dL [facility] Work Phone: Interpretation and review of laboratory results Abnormal [facility] Work Phone: Potassium [Moles/Vol] 3.4 mmol/L Low 3.5 - 5.1 mmol/L [facility] Work Phone: Sodium [Moles/Vol] 139 mmol/L 135 - 145 mmol/L [facility] Work Phone: Urea nitrogen (BldV) [Mass/Vol] 16 mg/dL 7 - 20 mg/dL [facility] Work Phone: MagnesiumOrdered By: Naz Madera on 11-28-2020 Magnesium [Mass/Vol] 2.1 mg/dL 1.6 - 2 .3 mg/dL [facility] Work Phone: No Panel InformationOrdered By: Naz Madera on 11-28-2020 Test Performed by [facility], [address] [place] [id number] [facility] Work Phone: POCT GlucoseOrdered By: Alina Christy on 11-28-2020 Glucose [Mass/Vol] 105 mg/dL High 70 - 100 mg/dL [facility] Work Phone: Comment on above: Test performed by [employer] ucose meter. Results may be 10%-15% lower than serum/plasma values. (CLIA ID [id number]) Interpretation and review of laboratory results Abnormal [facility] Work Phone: Test Performed by [employer], [address] [place], [place] [address] [facility] Work Phone: POCT GlucoseOrdered By: Solomon Madera on 11-28-2020 Glucose [Mass/Vol] 115 mg/dL High 70 - 100 mg/dL [facility] Work Phone: Comment on above: Test performed by gl ucose meter. Results may be 10%-15% lower than serum/plasma values. (CLIA ID [id number]) Interpretation and review of laboratory results Abnormal [facility] Work Phone: Test Performed by [employer], [address] [place], [place] [address] [facility] Work Phone: PROCALCITONINOrdered By: Yaniv Madera on 11-28-2020 Interpretation See Below [facility] Work Phone: Comment on above: PCT <0.50 = Low risk of severe sepsis and/or septic shock. PCT >2.00 = High risk of severe sepsis and/or septic shock. Interpretation and review of laboratory results Abnormal [facility] Work Phone: Procalcitonin 3.18 ng/mL Abnormal <0.10 [facility] Work Phone: Test Performed by [employer], [address] [place] [id number] [facility] Work Phone: COVID-19, RapidOrdered By: Eliazar Christy on 11-27-2020 SARS-CoV-2 (COVID-19) RNA VICKI+probe Ql (Unsp spec) see below [facility] Work Phone: Comment on above: Not Detected Expected Result: Not Detected _ Isothermal nucleic acid amplification performed on the [employer] System by [facility] Negative results do not preclude SARS-CoV-2 infection and should not be used as the sole basis for treatment or other patient management decisions. This assay was developed by [employer] and distributed under an Emergency Use Authorization (EUA) granted by the FDA for the qualitative detection of SARS-CoV-2 nucleic acid. Provider and patient fact sheets can be found at https://www.fda.gov/media/898580/download and https://www.fda.gov/media/895923/download. Test Performed by [facility], [address] , [place], [place] [address] [facility] Work Phone: Comprehensive Metabolic Pane lOrdered By: Belinda Christy on 11-27-2020 Albumin [Mass/Vol] 4.1 g/dL 3.5 - 5.0 g/dL [facility] Work Phone: ALP (Bld) [Catalytic activity/Vol] 86 U/L 38 - 126 U/L [facility] Work Phone: ALT [Catalytic activity/Vol] 18 U/L 0 - 34 U/L [facility] Work Phone: Comment on above: The ALT test is perf ormed by an updated assay method. Please note that the reference intervals have been changed and are now sex specific. Anion gap [Moles/Vol] 12 mmol/L 3 - 13 mmol/L [facility] Work Phone: AST [Catalytic activity/Vol] 25 U/L 15 - 46 U/L [facility] Work Phone: Bilirubin [Mass/Vol] 0.4 mg/dL 0.2 - 1 .3 mg/dL [facility] Work Phone: Calcium [Mass/Vol] 10.0 mg/dL 8.4 - 10. 4 mg/dL [facility] Work Phone: Chloride [Moles/Vol] 102 mmol/L 98 - 10 7 mmol/L [employer] Work Phone: CO2 [Moles/Vol] 26 mmol/L 22 - 30 mmol/L [facility] [employer] Work Phone: Creatinine [Mass/Vol] 0.8 mg/dL 0.52 - 1.25 mg/dL [facility] Work Phone: EGFR IF NonAfrican Estonian 74.0 mL/min >60 [employer] Work Phone: Comment on above: KDIGO guidelines pro vide the following GFR categories: Stage GFR(ml/min/1.73 m2) Terms G1 >=90 Normal or high G2 60-89 Mildly decreased* G3a 45-59 Mildly to moderately decreased G3b 30-44 Moderately to severely decreased G4 15-29 Severely decreased G5 <15 Kidney failure *Relative to young adult level. In the absence of evidence of kidney damage, neither GFR category G1 nor G2 fulfill the criteria for CKD. The CKD-EPI equation is validated in individuals 18 years of age and older. Currently the best equation for estimating glomerular filtration rate (GFR) from serum creatinine in children is the Bedside Moss equation. It is less accurate in patients with extremes of muscle mass, restriction of dietary protein, ingestion of creatine, extra-renal metabolism of creatinine, or treatment with medications that affect renal tubular creatinine secretion. Free PSA/Total PSA [Mass fraction] 8.3 g/dL High 6.3 - 8.2 g/dL [employer] Work Phone: GFR/1.73 sq M.predicted among blacks MDRD (S/P/Bld) [Vol rate/Area] 85.7 mL/min/{1.73_m2} >60 [employer] Work Phone: Glucose [Mass/Vol] 128 mg/dL High 70 - 100 mg/dL [employer] Work Phone: Interpretation and review of laboratory results Abnormal [employer] Work Phone: Potassium [Moles/Vol] 3.8 mmol/L 3.5 - 5.1 mmol/L [employer] Work Phone: Sodium [Moles/Vol] 140 mmol/L 135 - 145 mmol/L [employer] Work Phone: Urea nitrogen (BldV) [Mass/Vol] 17 mg/dL 7 - 20 mg/dL [employer] [facility] Work Phone: Test Performed by [employer], [address] , [place] [id number] [employer] Work Phone: Hemogram (CBC) w/Auto DiffOr dered By: Belinda Christy on 11-27-2020 Absolute Baso # 0.0 10*3/uL 0.0 - 0.2 10*3/uL [facility] Work Phone: Absolute Neut # 10.4 10*3/uL High 1.8 - 7.0 10*3/uL [facility] Work Phone: Basophils/100 WBC (Bld) 0.3 % 0.0 - 2.0 % [facility] Work Phone: Eosinophils (Bld) [#/Vol] 0.0 10*3/uL 0.0 - 0.5 10*3/uL [facility] Work Phone: Eosinophils/100 WBC (Bld) 0.0 % Low 1.0 - 6.0 % [facility] Work Phone: Granulocytes/100 WBC (Bld) 84.3 % High 40.0 - 80.0 % [employer] Work Phone: Hematocrit (Bld) [Volume fraction] 39.7 % 35.0 - 47.0 % [employer] Work Phone: Hemoglobin.gastrointesti nal spec 1 Ql (Stl) 13.0 g/dL 11.7 - 16.0 g/dL [employer] Work Phone: Interpretation and review of laboratory results Abnormal [employer] Work Phone: Lymphocytes (Bld) [#/Vol] 0.8 10*3/uL Low 1.0 - 4.3 10*3/uL [facility] Work Phone: Lymphocytes/100 WBC (Bld) 6.2 % Low 20.0 - 40.0 % [employer] Work Phone: MCH (RBC) [Entitic mass] 27.6 pg 26. 0 - 34.0 pg [facility] Work Phone: MCHC (RBC) [Mass/Vol] 32.7 % 32.0 - 36.0 % [employer] Work Phone: MCV (RBC) [Entitic vol] 84.5 fL 79.0 - 98.0 fL [facility] Work Phone: Monocytes (Bld) [#/Vol] 1.1 10*3/uL High 0.0 - 0.8 10*3/uL [employer] Work Phone: Monocytes/100 WBC (Bld) 9.2 % 2.0 - 10.0 % [employer] Work Phone: Platelet distribution width (Bld) [Ratio] 16.2 % High 11.5 - 14.5 % [employer] Work Phone: Platelet mean volume (Bld) [Entitic vol] 7.6 fL 7.4 - 10.4 fL [employer] Work Phone: Platelets (Bld) [#/Vol] 332 10*3/uL 140 - 440 10*3/uL [employer] Work Phone: RBC (Bld) [#/Vol] 4.70 10*6/uL 3.80 - 5.2 0 10*6/uL [employer] Work Phone: WBC (Bld) [#/Vol] 12.4 10*3/uL High 3.6 - 10.7 10*3/uL [employer] [facility] Work Phone: Test Performed by [employer], [facility] [address] [place] [address] [facility] Work Phone: Lactic Acid, PlasmaOrdered B y: Belinda Christy on 11-27-2020 Lactate [Moles/Vol] 2 mmol/L 0.7 - 2. 0 mmol/L [employer] [facility] Work Phone: Test Performed by [employer], [address] [place] [address] [employer] [facility] Work Phone: PROCALCITONINOrdered By: Errol Christy on 11-27-2020 Interpretation See Below [employer] Work Phone: Comment on above: PCT <0.50 = Low risk of severe sepsis and/or septic shock. PCT >2.00 = High risk of severe sepsis and/or septic shock. Interpretation and review of laboratory results Abnormal [employer] [facility] Work Phone: Procalcitonin 0.44 ng/mL Abnormal <0.10 [employer] [facility] Work Phone: Test Performed by [employer], [address] [place] [id number] [employer] Work Phone: Respiratory Panel, Molecular , with COVID-19 (Restricted: peds pts or suitable admitted adults)Ordered By: Belinda Christy on 11-27-2020 Respiratory Panel Molecular, with COVID NEGATIVE: No targets were detected by the [employer] Upper Respiratory Pathogens PCR Panel. _ Expected Result: Not Detected The [employer] Upper Respiratory Pathogens PCR Panel can detect the following targets: SARS-CoV-2, Adenovirus, Coronavirus 229E, Coronavirus HKU1, Coronavirus NL63, Coronavirus OC43, Human Metapneumovirus, Human Rhinovirus/Enterovi elma, Influenza A, Influenza B, Parainfluenza Virus 1, Parainfluenza Virus 2, Parainfluenza Virus 3, Parainfluenza Virus 4, Respiratory Syncytial Virus, Bordetella pertussis, Bordetella parapertussis, Chlamydia pneumoniae, Mycoplasma pneumoniae. Negative results do not preclude SARS-CoV-2 infection and should not be used as the sole basis for treatment or other patient management decisions. This assay was developed by [employer] and distributed under an Emergency Use Authorization (EUA) granted by the FDA for the qualitative detection of SARS-CoV-2 nucleic acid. Provider and patient fact sheets can be found at https://www.fda.gov /media/771665/downl oad and https://www.fda.gov /media/969050/downl oad. [employer] Work Phone: Test Performed by [employer], [facility] [place] [address] [employer] Work Phone: Troponin z2Vextmos By: Dexter Christy on 11-27-2020 Troponin I.cardiac [Mass/Vol] ng/mL 0.000 - 0.034 ng/mL [employer] [facility] Work Phone: Comment on above: . Test Performed by [employer], [facility] [address] , [place], [place] [address] [facility] Work Phone: UrinalysisOrdered By: Belinda Christy on 11-27-2020 Appearance (U) Turbid Abnormal Clear NA [facility] Work Phone: Comment on above: . Bacteria, UA Few (1-5) Abnormal Negative /[HPF] [facility] Work Phone: Comment on above: . Bilirubin Urine Negative Negative mg/dL [facility] Work Phone: Comment on above: . Color (U) YELLOW Lt. Yellow NA [facility] Work Phone: Comment on above: . Glucose, Ur Normal Normal (<70) mg/dL [facility] Work Phone: Comment on above: . Interpretation and review of laboratory results Abnormal [facility] Work Phone: Ketones Ql (U) Negative Negative mg/dL [facility] Work Phone: Comment on above: . LEUKOCYTES, UA 500 Abnormal Negative Johnnie/uL [facility] Work Phone: Comment on above: . Mucous Threads Few Negative /[LPF] [facility] Work Phone: Comment on above: . Nitrite, Urine Negative Negative NA [facility] Work Phone: Comment on above: . Occult Blood,Urine 0.2 mg/dL Abnormal Negative [facility] Work Phone: Comment on above: . pH (U) 6.5 [pH] [facility] Work Phone: Comment on above: . Protein (U) [Mass/Vol] 100 mg/dL Abnormal Negative [employer] Work Phone: Comment on above: . RBC, UA 6-10 Abnormal 0 - 2 /[HPF] [facility] Work Phone: Comment on above: . Specific [place], Urine 1.020 S [facility] Work Phone: Comment on above: . Squam Epithel, UA 3-5 3 - 5 /[HPF] [facility] Work Phone: Comment on above: . Urobilinogen, Urine Normal Normal ( 0-1) mg/dL [facility] Work Phone: Comment on above: . Volume 8-12 ml [facility] Work Phone: Comment on above: . WBC, UA 26-50 Abnormal 0 - 5 /[HPF] [facility] Work Phone: Comment on above: . Test Performed by [facility], [address] [place] [address] [place] , [place], [place] [id number] [place] [address] Work Phone: XR CHEST PORTABLEOrdered By: Belinda Christy on 11-27-2020 Patient Name: UBALDO ARANGO Diagnostic Radiology ACCESSION EXAM DATE/TIME PROCEDURE ORDERING PROVIDER [id number] 11/27/2020 08:20 EDT CR Chest Portable RONAL ALDRIDGE MD, DONALD L CPT code 83844 Reason For Exam (CR Chest Portable) fever and report of low pulse ox; eval for pneumonia Report Portable chest 11/27/2020: Clinical Information: Fever, low pulse ox. Findings: A single AP portable view of the chest was obtained at 834 hours. No prior studies for comparison. The trachea is midline. The heart is not enlarged. No focal areas of consolidation or volume loss are seen. There are no pleural effusions. The pulmonary vasculature does not appear congested. The visualized bony structures are intact. Impression: No acute process. Report Dictated on --- Final --- Dictating Physician: MD MUHAMMAD RISA Signed Date and Time: 11/27/2020 8:55 am Signed by: MD MUHAMMAD RISA Transcribed Date and Time: 11/27/2020 8:56 [facility] Work Phone: [place], [facility] Incoming Radiology Results From [facility] - 11/27/2020 8:56 AM EDT Patient Name: UBALDO ARANGO Diagnostic Radiology ACCESSION EXAM DATE/TIME PROCEDURE ORDERING PROVIDER [id number] 11/27/2020 08:20 EDT CR Chest Portable RONAL ALDRIDGE MD, BELINDA [place] CPT code 37058 Reason For Exam (CR Chest Portable) fever and report of low pulse ox; eval for pneumonia Report Portable chest 11/27/2020: Clinical Information: Fever, low pulse ox. Findings: A single AP portable view of the chest was obtained at 834 hours. No prior studies for comparison. The trachea is midline. The heart is not enlarged. No focal areas of consolidation or volume loss are seen. There are no pleural effusions. The pulmonary vasculature does not appear congested. The visualized bony structures are intact. Impression: No acute process. Report Dictated on --- Final --- Dictating Physician: MD MUHAMMAD RISA Signed Date and Time: 11/27/2020 8:55 am Signed by: MD MUHAMMAD RISA Transcribed Date and Time: 11/27/2020 8:56 [facility] Work Phone: Vital Signs Date Time Vital Sign Value Performing Clinician Faci oscary 10-21-2024 18:44-0400 Diastolic blood pressure 86 mm[Hg] Nilo Kennedy MD Work Phone: [facility] 10-21-2024 18:44-0400 Heart rate 79 /min Nilo Kennedy MD Work Phone: [facility] 10-21-2024 18:44-0400 Respiratory rate 24 /min Nilo Kennedy MD Work Phone: [facility] 10-21-2024 18:44-0400 SaO2% (BldA) [Mass fraction] 95 % Nilo Kennedy MD Work Phone: [facility] 10-21-2024 18:44-0400 Systolic blood pressure 135 mm[Hg] Nilo Kennedy MD Work Phone: [facility] 10-21-2024 13:27-0400 Body mass index (BMI) [Ratio] 31.09 kg/m2 Nilo Kennedy MD Work Phone: [facility] 10-21-2024 13:27-0400 Body temperature 96.91 [degF] Nilo Kennedy MD Work Phone: [facility] 10-21-2024 13:27-0400 Body weight 77.11 kg Nilo Kennedy MD Work Phone: [facility] 04-18-2022 19:52-0400 Body temperature 97.81 [degF] Nilo Kennedy MD Work Phone: [facility] 04-18-2022 19:52-0400 Diastolic blood pressure 106 mm[Hg] Nilo Kennedy MD Work Phone: [facility] 04-18-2022 19:52-0400 Heart rate 69 /min Nilo Kennedy MD Work Phone: [facility] 04-18-2022 19:52-0400 Respiratory rate 17 /min Nilo Kennedy MD Work Phone: [facility] 04-18-2022 19:52-0400 SaO2% (BldA) [Mass fraction] 92 % Nilo Kennedy MD Work Phone: [facility] 04-18-2022 19:52-0400 Systolic blood pressure 175 mm[Hg] Nilo Kennedy MD Work Phone: [facility] 04-13-2022 14:11-0400 Body height 157.5 cm Nilo Kennedy MD Work Phone: [facility] 04-10-2022 21:41-0400 Body mass index (BMI) [Ratio] 30.58 kg/m2 Nilo Kennedy MD Work Phone: [facility] 04-10-2022 21:41-0400 Body weight 75.84 kg Nilo Kennedy MD Work Phone: [facility] 12-03-2020 00:05-0400 Body temperature 97.7 [degF] Belinda Christy MD Work Phone: [facility] Work Phone: 12-03-2020 00:05-0400 Diastolic blood pressure 66 mm[Hg] Belinda Christy MD Work Phone: [facility] Work Phone: 12-03-2020 00:05-0400 Heart rate 63 /min Belinda Christy MD Work Phone: [facility] Work Phone: 12-03-2020 00:05-0400 Respiratory rate 30 /min Belinda Christy MD Work Phone: [facility] Work Phone: 12-03-2020 00:05-0400 SaO2% (BldA) [Mass fraction] 95 % Belinda Christy MD Work Phone: [facility] Work Phone: 12-03-2020 00:05-0400 Systolic blood pressure 144 mm[Hg] Belinda Christy MD Work Phone: [facility] Work Phone: 12-01-2020 15:49-0400 Body height 157.5 cm Belinda Christy MD Work Phone: [facility] Work Phone: 12-01-2020 04:47-0400 Body mass index (BMI) [Ratio] 33.91 kg/m2 Belinda Christy MD Work Phone: [facility] Work Phone: 12-01-2020 04:47-0400 Body weight 84.09 kg Belinda Christy MD Work Phone: [facility] Work Phone: Encounters Encounter Date Encounter Type Care Provider Facility Start: 12-18-2024 End: 12-18-2024 ambulatory Wale WHEATLEY [facility] Work Phone: Start: 12-18-2024 End: 12-18-2024 Departed Referred Wale Cadena -[address] Start: 12-18-2024 Registered Referred Wale Nassar - [address] Start: 12-18-2024 End: 12-18-2024 ambulatory Wale WHEATLEY Facility:[facility] Start: 11-30-2024 End: 11-30-2024 ambulatory Wale Cadena [facility] Work Phone: Start: 11-30-2024 End: 11-30-2024 Departed Referred Wale Cadena -[facility] - [address] Start: 11-30-2024 End: 11-30-2024 ambulatory Wale WHEATLEY Facility:[facility] Start: 11-28-2024 End: 11-28-2024 ambulatory Bruna Nunez RN [facility] Start: 11-28-2024 End: 11-28-2024 Patient encounter procedure Bruna Nunez RN [facility] Start: 11-27-2024 End: 11-27-2024 ambulatory Ayleen Johnson RN [facility] Start: 11-27-2024 End: 11-27-2024 Patient encounter procedure Ayleen Johnson RN [facility] Start: 11-23-2024 End: 11-23-2024 ambulatory Wale WHEATLEY [facility] Work Phone: Start: 11-23-2024 End: 11-23-2024 Departed Referred Wale Cadena -[facility] - [address] Start: 11-23-2024 Registered Referred Wale Cadena - [facility] - [address] Start: 11-23-2024 End: 11-23-2024 ambulatory Wale WHEATLEY Facility:[facility] Start: 10-21-2024 End: 10-21-2024 Emergency department patient visit Nilo Kennedy MD Work Phone: [facility] ED Comment on above: Acute cough (Primary Dx); Viral upper respiratory tract infection Start: 07-30-2024 ambulatory Wale WHEATLEY Faci lity:[facility] Start: 07-11-2024 End: 07-11-2024 ambulatory Jyoti Forte RN [facility] Start: 07-11-2024 End: 07-11-2024 Patient encounter procedure Jyoti Forte RN [facility] Start: 07-01-2024 End: 07-01-2024 ambulatory Wale WHEATLEY Facility:[facility] Start: 06-17-2024 End: 06-17-2024 ambulatory Wale WHEATLEY Facility:[facility] Start: 05-21-2024 End: 05-21-2024 ambulatory Wale WHEATLEY Facility:[facility] Start: 05-04-2024 End: 05-04-2024 ambulatory Arden WHEATLEY Facility:[facility] Start: 04-28-2024 End: 04-28-2024 ambulatory Arden WHEATLEY Facility:[facility] Start: 04-03-2024 ambulatory Arden WHEATLEY Facil ity:[facility] Start: 04-01-2024 ambulatory Wale WHEATLEY Faci lity:[facility] Start: 03-23-2024 ambulatory Arden WHEATLEY Facil ity:[facility] Start: 03-17-2024 End: 03-17-2024 ambulatory Wale WHEATLEY Facility:[facility] Start: 10-24-2023 End: 10-24-2023 ambulatory [facility] Work Phone: Start: 10-24-2023 End: 10-24-2023 [facility] [address] Start: 09-27-2023 End: 09-27-2023 ambulatory [facility] Work Phone: Start: 09-27-2023 End: 09-27-2023 [facility]ed [facility] [address] Start: 09-20-2023 End: 09-20-2023 ambulatory [facility] Work Phone: Start: 09-20-2023 End: 09-20-2023 Dep[facility]ed [facility]erred [facility] [address] Start: 09-20-2023 Registered Referred [facility] [place] - [address] Start: 08-29-2023 End: 08-29-2023 ambulatory [facility] Work Phone: Start: 08-29-2023 End: 08-29-2023 Dep[facility]ed [facility]erred [facility] [place] [facility] [address] Start: 08-29-2023 Registered [facility] [address] Start: 08-26-2023 End: 08-26-2023 ambulatory [facility] Work Phone: Start: 08-26-2023 End: 08-26-2023 Dep[facility]ed [facility]erred [facility] [place] [facility] [address] Start: 07-31-2023 End: 07-31-2023 ambulatory [facility] Work Phone: Start: 07-31-2023 End: 07-31-2023 Dep[facility]ed [facility]erred [facility] [place] [facility] [address] Start: 07-31-2023 Registered [facility] [address] Start: 05-27-2023 End: 05-27-2023 ambulatory [facility] Work Phone: Start: 05-27-2023 End: 05-27-2023 Departed [facility]erred [facility] [address] Start: 05-23-2023 End: 05-23-2023 ambulatory [facility] Work Phone: Start: 05-23-2023 End: 05-23-2023 Departed [facility]erred [facility] [address] Start: 05-23-2023 Registered [facility] [address] Start: 04-26-2023 End: 04-26-2023 Departed Referred [facility] [place] [facility] [address] Start: 04-26-2023 Registered [facility]erred [facility] [place] [facility] [address] Start: 04-24-2023 End: 04-24-2023 ambulatory [facility] Work Phone: Start: 04-24-2023 End: 04-24-2023 Departed Referred [facility] [address] Start: 04-24-2023 Registered [facility]erred [facility] [address] Start: 03-20-2023 End: 03-20-2023 ambulatory [facility] Work Phone: Start: 03-20-2023 End: 03-20-2023 Departed Referred [facility] [address] Start: 03-06-2023 End: 03-06-2023 ambulatory [facility] Work Phone: Start: 03-06-2023 End: 03-06-2023 Departed Referred [facility] [address] Start: 03-06-2023 Registered [facility] [address] Start: 01-25-2023 End: 01-25-2023 ambulatory [facility] Work Phone: Start: 01-25-2023 End: 01-25-2023 Departed Referred [facility] [place] [facility] [address] Start: 01-25-2023 Registered [facility] [place] [facility] [address] Start: 01-24-2023 End: 01-24-2023 ambulatory [facility] Work Phone: Start: 01-24-2023 End: 01-24-2023 Departed [facility]erred [facility] [place] [facility] [address] Start: 01-22-2023 End: 01-22-2023 ambulatory [facility] Work Phone: Start: 01-22-2023 End: 01-22-2023 Departed [facility]erred [facility] [address] Start: 01-22-2023 Registered [facility] [place] [facility] [address] Start: 12-18-2022 End: 12-18-2022 ambulatory [facility] Work Phone: Start: 12-18-2022 End: 12-18-2022 Departed Referred [facility] [place] [facility] [address] Start: 10-24-2022 End: 10-24-2022 ambulatory [facility] Work Phone: Start: 10-24-2022 End: 10-24-2022 Departed [facility]erred [facility] [place] [facility] [address] Start: 10-24-2022 Registered [facility] [place] [facility] [address] Start: 10-22-2022 End: 10-22-2022 ambulatory [facility] Work Phone: Start: 10-22-2022 End: 10-22-2022 Departed Referred [facility] [place] - [address] Start: 09-24-2022 End: 09-24-2022 ambulatory [facility] Work Phone: Start: 09-24-2022 End: 09-24-2022 Departed [facility]erred [facility] [address] Start: 09-24-2022 Registered [facility] [place] [facility] [address] Start: 09-20-2022 End: 09-20-2022 ambulatory [facility] Work Phone: Start: 09-20-2022 End: 09-20-2022 Departed [facility]erred [facility] [place] [facility] [address] Start: 07-27-2022 End: 07-27-2022 ambulatory [facility] Work Phone: Start: 07-27-2022 End: 07-27-2022 Departed [facility]erred [facility] [address] Start: 07-27-2022 Registered [facility]erred [facility] [place] [facility] [address] Start: 07-26-2022 End: 07-26-2022 ambulatory [facility] Work Phone: Start: 07-26-2022 End: 07-26-2022 Departed [facility]erred [facility] [address] Start: 04-27-2022 End: 04-27-2022 ambulatory [facility] Work Phone: Start: 04-27-2022 End: 04-27-2022 Departed [facility]erred [facility] [address] Start: 04-26-2022 End: 04-26-2022 ambulatory [facility] Work Phone: Start: 04-26-2022 End: 04-26-2022 Departed Referred [facility] - [address] Start: 04-26-2022 Registered [facility] [place] [facility] [address] Start: 04-23-2022 End: 04-23-2022 Departed Referred [facility] [place] - [address] Start: 04-23-2022 Registered Referred [facility] [place] - [address] Start: 04-19-2022 End: 04-19-2022 ambulatory [facility] Work Phone: Start: 04-19-2022 End: 04-19-2022 Departed Referred [facility] [place] - [address] Start: 04-19-2022 [facility]istered [facility] [address] Start: 04-11-2022 End: 04-18-2022 Evaluation and management of inpatient [facility] Start: 04-10-2022 End: 04-18-2022 Evaluation and management of inpatient Nilo Kennedy MD Work Phone: [facility] Comment on above: Septicemia (HCC) (Pr imary Dx); Hypoxia; Acute cystitis without hematuria; Pneumonia of right middle lobe due to infectious organism Start: 03-26-2022 End: 03-26-2022 ambulatory [facility] Work Phone: Start: 03-26-2022 End: 03-26-2022 Departed Referred [facility] [place] [address] Start: 02-21-2022 End: 02-21-2022 Departed Referred [facility] [address] - [address] Start: 01-30-2022 End: 01-30-2022 Departed Referred [facility] [place] - [address] Start: 01-25-2022 End: 01-25-2022 Departed [facility]erred [facility] [place] - [address] Start: 12-25-2021 End: 12-25-2021 Departed [facility]erred [facility] [address] - [address] Start: 12-25-2021 Registered Referred [facility] [address] - [address] Start: 12-12-2021 End: 12-12-2021 Departed [facility]erred [facility] [facility] [address] Start: 10-30-2021 End: 10-30-2021 Departed Referred [facility] [address] Start: 10-30-2021 Registered [facility] [address] Start: 09-25-2021 End: 09-25-2021 Departed Referred [facility] - [address] Start: 09-20-2021 End: 09-20-2021 Departed Referred [facility] - [address] Start: 09-20-2021 Registered [facility] [address] Start: 09-14-2021 End: 09-14-2021 Departed Referred [facility] - [address] Start: 09-14-2021 Registered Ref[facility] [address] Start: 08-31-2021 End: 08-31-2021 Departed Referred [facility] - [address] Start: 08-31-2021 Registered Referred [facility] [address] Start: 08-24-2021 End: 08-24-2021 [facility] [address] Start: 08-24-2021 Registered Ref[facility] [address] Start: 08-09-2021 End: 08-09-2021 Dep[facility]ed [facility] [address] Start: 11-27-2020 End: 12-03-2020 Evaluation and management of inpatient Belinda Christy MD Work Phone: [facility] 2E TELEMETRY Comment on above: Urinary tract infect ion with hematuria, site unspecified (Primary Dx); Chronic pain syndrome Procedures Date Procedure Procedure Detail Performing Clinician Start: 11-30-2024 Ethosuximide measurement Wale WHEATLEY Comment on above: Detection Limit = 10 Performed at: [address] [id number] Director: Santosh Salvador MD, Phone: [phone] Start: 11-23-2024 Urnls dip stick/tabl et reagent auto microscopy Wale WHEATLEY Start: 11-23-2024 Urine culture Wale WHEATLEY Start: 10-21-2024 Radiologic exam ches t single view Nilo Kennedy MD Work Phone: Start: 10-21-2024 Basic metabolic pane l calcium total Nilo Kennedy MD Work Phone: Start: 10-21-2024 SARS-COV-2, FLU A/B, AND RSV COMBO Nilo Kennedy MD Work Phone: Start: 07-31-2023 Urine culture Start: 05-22-2023 Urine culture Start: 03-06-2023 Urine culture Start: 04-18-2022 Assay of magnesium Jessee Mcleod [facility] Work Phone: Start: 04-18-2022 BASIC METABOLIC PANE L W/ REFLEX TO MG FOR LOW K Pricila Mcleod [facility] Work Phone: Start: 04-17-2022 Assay of magnesium Agnesi anusha Mcleod [facility] Work Phone: Start: 04-17-2022 BASIC METABOLIC PANE L W/ REFLEX TO MG FOR LOW K Pricila Mcleod [facility] Work Phone: Start: 04-17-2022 Manual Differential panel - Blood Pricila Mcleod [facility] Work Phone: Start: 04-16-2022 Basic metabolic pane l calcium total Moshe Rich SAMAYOA Work Phone: Start: 04-15-2022 Basic metabolic pane l calcium total Moshe Rich SAMAYOA Work Phone: Start: 04-14-2022 BASIC METABOLIC PANE L W/ REFLEX TO MG FOR LOW K Pricila Mcleod [facility] Work Phone: Start: 04-14-2022 Blood count complete auto&auto difrntl wbc Priicla Mcleod [facility] Work Phone: Start: 04-14-2022 Manual Differential panel - Blood Pricila Mcleod [facility] Work Phone: Start: 04-12-2022 Culture bacterial bl ood aerobic w/id isolates Pricila Mcleod [facility] Work Phone: Start: 04-12-2022 CULTURE, BLOOD 1 Eran Mcleod [employer] Work Phone: Start: 04-12-2022 BASIC METABOLIC PANE L W/ REFLEX TO MG FOR LOW K Pricila Mlceod [employer] TECHNICIAN [employer] [facility] [employer] [facility] Work Phone: Start: 04-12-2022 Blood count complete auto&auto difrntl wbc Pricila Mcleod [employer] TECHNICIAN [facility] Work Phone: Start: 04-12-2022 Drug screen quantita tive vancomycin Pricila Mcleod [employer] Work Phone: Start: 04-12-2022 RBC morphology findi ng Nom (Bld) Pricila Mcleod [employer] Work Phone: Start: 04-11-2022 ADD ON LAB TEST Genoveva luis angel Mcleod [employer] Work Phone: Start: 04-11-2022 Radiologic exam swal low function contrast study Pricila Mcleod [employer]IAN [facility] Work Phone: Start: 04-11-2022 PLANT CONTROL OPERATOR MODIFIED BARIUM SWALLOW STUDY (MBS) Pricila Mcleod [employer]IAN [facility] Work Phone: Start: 04-11-2022 Assay of magnesium Jessee tavares Harsha [employer] TECHNICIAN [employer] Work Phone: Start: 04-11-2022 BASIC METABOLIC PANE L W/ REFLEX TO MG FOR LOW K Pricila Mcleod [employer] TECHNICIAN [facility] Work Phone: Start: 04-11-2022 Speech and language therapy regime Pricila Harsha [employer] TECHNICIAN [employer] [employer] [facility] Work Phone: Start: 04-11-2022 ADD ON LAB TEST Martir Kumrai MD Work Phone: Start: 04-11-2022 LACTATE, SEPSIS Nilo Kennedy MD Work Phone: Start: 04-10-2022 End: 04-10-2022 Culture bacterial quanttative colony count urine Nilo Kennedy MD Work Phone: Start: 04-10-2022 STREP PNEUMONIAE ANTIGEN Martir Kumari MD Work Phone: Start: 04-10-2022 Urnls dip stick/tabl et rgnt auto w/o microscopy Nilo Kennedy MD Work Phone: Start: 04-10-2022 RESPIRATORY PANEL, MOLECULAR, WITH COVID-19 Nilo Kennedy MD Work Phone: Start: 04-10-2022 Ecg routine ecg w/le ast 12 lds w/i&r Nilo Kennedy MD Work Phone: Start: 04-10-2022 Basic metabolic pane l calcium total Nilo Kennedy MD Work Phone: Start: 04-10-2022 CULTURE, BLOOD 1 Nilo Kennedy MD Work Phone: Start: 04-10-2022 Hepatic function panel Nilo Kennedy MD Work Phone: Start: 04-10-2022 LACTATE, SEPSIS Nilo Kennedy MD Work Phone: Start: 04-10-2022 RBC morphology findi ng Nom (Bld) Nilo Kennedy MD Work Phone: Start: 04-10-2022 Radiologic exam ches t single view Nilo Kennedy MD Work Phone: Start: 12-02-2020 Special diagnostic procedures Pricila Mcleod APRN - CLINICAL LAB SCIENTIST Work Phone: Start: 12-02-2020 Drug screen quantita tive vancomycin Naz Madera MD Work Phone: Start: 12-02-2020 BASIC METABOLIC PANE L W/ REFLEX TO MG FOR LOW K Pricila Mcleod APRN - CLINICAL LAB SCIENTIST Work Phone: Start: 12-02-2020 Blood count complete auto&auto difrntl wbc Pricila Mcleod APRN - CLINICAL LAB SCIENTIST Work Phone: Start: 12-01-2020 BASIC METABOLIC PANE L W/ REFLEX TO MG FOR LOW K Pricila Mcleod APRN - CLINICAL LAB SCIENTIST Work Phone: Start: 12-01-2020 Blood count complete auto&auto difrntl wbc Pricila Mcleod [facility] Work Phone: Start: 12-01-2020 Manual Differential panel - Blood Pricila Mcleod [facility] Work Phone: Start: 11-30-2020 Drug screen quantita tive vancomycin Naz Madera MD Work Phone: Start: 11-30-2020 BASIC METABOLIC PANE L W/ REFLEX TO MG FOR LOW K Pricila Mcleod [facility] Work Phone: Start: 11-30-2020 Blood count complete auto&auto difrntl wbc Pricila Mcleod [facility] Work Phone: Start: 11-30-2020 Manual Differential panel - Blood Pricila Mcleod [facility] Work Phone: Start: 11-29-2020 CULTURE, BLOOD 1 Angel Madera MD Work Phone: Start: 11-29-2020 Culture bacterial bl ood aerobic w/id isolates Naz Madera MD Work Phone: Start: 11-29-2020 Echo tthrc r-t 2d w/wom-mode compl spec&colr d Naz Madera MD Work Phone: Start: 11-29-2020 End: 11-29-2020 Basic metabolic panel calcium total Naz Madera MD Work Phone: Start: 11-29-2020 RBC morphology findi ng Nom (Bld) Naz Madera MD Work Phone: Start: 11-28-2020 Gluc bld gluc mntr d ev cleared fda spec home use Belinda Christy MD Work Phone: Start: 11-28-2020 Gluc bld gluc mntr d ev cleared fda spec home use Naz Madera MD Work Phone: Start: 11-28-2020 Comprehensive metabo lic panel Naz Madera MD Work Phone: Start: 11-27-2020 Speech and language therapy regime Naz Madera MD Work Phone: Start: 11-27-2020 Radiologic exam ches t single view Belinda Christy MD Work Phone: Start: 11-27-2020 COVID-19, RAPID Belinda Christy MD Work Phone: Start: 11-27-2020 RESPIRATORY PANEL, MOLECULAR, WITH COVID-19 Belinda Christy MD Work Phone: Start: 11-27-2020 Comprehensive metabo lic panel Belinda Christy MD Work Phone: Start: 11-27-2020 End: 11-27-2020 Culture bacterial quanttative colony count urine Belinda Christy MD Work Phone: Start: 11-27-2020 CULTURE, BLOOD 1 Belinda Christy MD Work Phone: Start: 11-27-2020 Urnls dip stick/tabl et rgnt auto w/o microscopy Belinda Christy MD Work Phone: Plan of Treatment Date Care Activity Detail Author Start: 04-05-2025 Influenza vaccination Influenz a Vaccine (Season Ended) [facility] Start: 08-05-2024 Medicare Advantage Annual Wellness Visit Medicare Advantage Annual Wellness Visit [facility] Start: 2024 RSV Immunization for Adults (1 - 1-dose 75+ series) RSV Immunization for Adults (1 - 1-dose 75+ series) [facility] Start: 04-05-2024 COVID-19 Vaccine ( season) COVID-19 Vaccine ( season) [facility] Start: 04-05-2024 COVID-19 Vaccine ( season) COVID-19 Vaccine ( season) [facility] Start: 04-05-2024 Influenza vaccination Influenza Vacc ine (#1) [facility] Start: 11-30-2023 Diabetes mellitus screening Diabetes Screening [facility] Start: 04-26-2023 End: 04-26-2023 [facility] Start: 04-05-2022 Influenza vaccination Flu vaccine (# 1) [facility] Start: 12-02-2021 Creatinine measurement Creatinine mo nitoring [facility] Work Phone: Start: 12-02-2021 Potassium monitoring Potassium monit oring [facility] Work Phone: Start: 04-05-2021 Influenza vaccination Flu vacc ine (Season Ended) [facility] Work Phone: Start: 2014 Pneumococcal Vaccine : 65+ Years (1 of 1 - PCV) Pneumococcal Vaccine: 65+ Years (1 of 1 - PCV) [facility] Start: 1999 Pneumococcal Vaccine : 50+ Years (1 of 1 - PCV) Pneumococcal Vaccine: 50+ Years (1 of 1 - PCV) [facility] Start: 1999 Zoster Vaccines (1 of 2) Zoster Vacc yvette (1 of 2) [facility] Start: 1968 DTaP/Tdap/Td vaccine (1 - Tdap) DTaP/Tdap/Td vaccine (1 - Tdap) [facility] Start: 1968 DTaP/Tdap/Td Vaccine s (1 - Tdap) DTaP/Tdap/Td Vaccines (1 - Tdap) [facility] Start: 1967 Hepatitis C screening Hepatitis C Sc reening [facility] Start: 1965 COVID-19 Vaccine (1) COVID-19 Vaccin e (1) [facility] Work Phone: Start: 1961 Depression Screening Depression Scre ening [facility] Start: 1949 COVID-19 Vaccine (#1) COVID-19 Vacci ne (#1) [facility] Start: 1949 Screening for malign ant neoplasm of colon [facility] Start: 1949 Screening for osteoporosis Bone Density Scan [facility] Start: 1949 Thyroid stimulating hormone measurement TSH Level [facility] Basic Metabolic Pane l w/ Reflex to MG Basic Metabolic Panel w/ Reflex to MG Lab Routine Daily until discontinued starting 11/30/2020, 3 completed [facility] Work Phone: Comment on above: Daily until disconti nued starting 11/30/2020, 3 completed End: 04-19-2022 Basic Metabolic Panel w/ Reflex to MG Basic Metabolic Panel w/ Reflex to MG Lab Routine Daily for 3 Days starting 04/17/2022 until 04/19/2022, 2 completed [employer] Work Phone: Comment on above: Daily for 3 Days sta rting 04/17/2022 until 04/19/2022, 2 completed CBC W Auto Different ial panel - Blood CBC Auto Differential Lab Routine Daily until discontinued starting 11/30/2020, 3 completed [employer] Work Phone: Comment on above: Daily until disconti nued starting 11/30/2020, 3 completed End: 04-19-2022 CBC W Auto Differential panel - Blood CBC with Auto Differential Lab Routine Daily for 3 Days starting 04/17/2022 until 04/19/2022, 2 completed [employer] Work Phone: Comment on above: Daily for 3 Days sta rting 04/17/2022 until 04/19/2022, 2 completed End: 04-17-2022 COVID-19, Antigen COVID-19, Antigen Point of Care Testing Routine One Time for 1 Occurrences starting 04/17/2022 until 04/17/2022 [facility] Work Phone: Comment on above: One Time for 1 Occur rences starting 04/17/2022 until 04/17/2022 Culture, Blood 2 Culture, Blood 2 Microbiology STAT 11/29/2020 4:33 PM EDT [facility] Work Phone: End: 04-11-2022 Culture, Respiratory Culture, Respiratory Microbiology Routine One Time for 1 Occurrences starting 04/11/2022 until 04/11/2022 [facility] Work Phone: Comment on above: One Time for 1 Occur rences starting 04/11/2022 until 04/11/2022 Microscopic examinat ion of blood, culture Culture, Blood Microbiology STAT 11/29/2020 5:47 PM EDT [facility] Work Phone: End: 04-11-2022 Microscopic observation [Identifier] in Unspecified specimen by Gram stain Gram Stain Microbiology STAT Once for 1 Occurrences starting 04/11/2022 until 04/11/2022 [facility] Work Phone: Comment on above: Once for 1 Occurrenc es starting 04/11/2022 until 04/11/2022 Nebulizer therapy HHN Treatment Respiratory Care Routine As Needed until discontinued starting 11/27/2020 [facility] Work Phone: Comment on above: As Needed until disc ontinued starting 11/27/2020 Oxygen therapy [Mini mum Data Set] Initiate Oxygen Therapy Protocol Respiratory Care Routine Daily until discontinued starting 11/27/2020 [facility] Work Phone: Comment on above: Daily until disconti nued starting 11/27/2020 Oxygen therapy [Mini mum Data Set] Initiate Oxygen Therapy Protocol Respiratory Care Routine As Needed until discontinued starting 04/11/2022 [facility] Work Phone: Comment on above: As Needed until disc ontinued starting 04/11/2022 PEP/Flutter PEP/Flutter Resp iratory Care Routine Every 8hr until discontinued starting 04/14/2022 [facility] Work Phone: Comment on above: Every 8hr until disc ontinued starting 04/14/2022 End: 12-03-2020 PROCALCITONIN PROCALCITONIN Lab Routine Q48H for 2 Occurrences starting 12/01/2020 until 12/03/2020, 1 completed [employer] Work Phone: Comment on above: Q48H for 2 Occurrenc es starting 12/01/2020 until 12/03/2020, 1 completed Payers Date Payer Category Payer Medicare HMO [employer] [id number] 2024 Self-pay [id number] 2024 Unknown [id number] 2020 Private Health Insurance [id number] 1950 Unknown [id number] Medicare Private Health Insurance Unknown [id number] Unknown [id number] 462 Unknown [id number] 462 Unknown [id number] 462 Unknown [id number]. 462 Unknown [id number] 462 Unknown [id number] 462 Unknown [id number] 462 Unknown [id number] 462 Unknown [id number] 462 Unknown [id number] 462 Unknown [id number] 462 Unknown [id number] 462 Social History Date Type Detail Facility Start: 12-01-2020 End: 12-02-2020 Tobacco smoking status NHIS Former smoker [facility] End: 08-05-1979 History of tobacco use [facility] Start: 12-02-2020 End: 04-12-2022 Cigarettes smoked current (pack per day) - Reported [facility] Work Phone: Start: 12-01-2020 End: 12-02-2020 Tobacco use and exposure Never used [facility] Start: 1950 Sex Assigned At Not on file S [facility] Work Phone: Exposure to SARS-CoV -2 (event) Not sure [facility] Start: 1950 Sex Assigned At Female [facility] End: 08-05-1979 History of tobacco use Cigarette Smoker [facility] Work Phone: Start: 03-31-2022 End: 04-10-2022 Exposure to SARS-CoV-2 (event) Unable to assess [facility] Start: 04-12-2022 Tobacco use panel [facility] Start: 03-05-2022 Sex Female (finding) [facility] Tobacco smoking stat us ORIS Unknown if ever smoked [facility] Work Phone: Clinical Notes 12-02-2020 to 11-28-2024 Telephone Encounter - Bruna Nunez RN - 11/28/2024 4:26 PM EDTTelephone Encounter - Bruna Nunez RN - 11/28/2024 4:26 PM EDTDidi Townsend RN - 10/21/2024 6:49 PM EDT Note Date & Type Note Facility 11-28-2024 Telephone encounter Note S: 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 R: Page to Dr. Cadena and he will call the TRACK LINER OPERATOR now. 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 R: Page to Dr. Cadena and he will call the TRACK LINER OPERATOR now. Reason for Disposition Caller has URGENT medicine question about med that PCP or specialist prescribed and triager unable to answer question Protocols used: Medication Question [id number] documented in this encounter [facility] 11-27-2024 Telephone encounter Note S: Shyanne with [facility] spoke with [facility] nurse regarding medication interaction B: Onset of symptoms/concern n/a A: Patient prescribed IV imipenem, supposed to start tonight. Pharmacy called [facility] and stated that there is an interaction with this medication with Depakote. May increase the likeliness of seizures. R: Paged Dr Cadena with above message from [facility] and Shyanne with [facility] #[phone]. Dr Cadena called [facility]. No further orders at this time. Reason for Disposition [1] Caller has URGENT medicine question about med that PCP or specialist prescribed AND [2] triager unable to answer question Protocols used: Medication Question [id number] [facility] 11-27-2024 Miscellaneous Notes S: Shyanne with [facility] spoke with [facility] nurse regarding medication interaction B: Onset of symptoms/concern n/a A: Patient prescribed IV imipenem, supposed to start tonight. Pharmacy called [facility] and stated that there is an interaction with this medication with Depakote. May increase the likeliness of seizures. R: Paged Dr Cadena with above message from [facility] and [facility][phone]. Dr Caedna called [facility]. No further orders at this time. Reason for Disposition [1] Caller has URGENT medicine question about med that PCP or specialist prescribed AND [2] triager unable to answer question Protocols used: Medication Question [id number] documented in this encounter [facility] 10-21-2024 Emergency department Note Gave report and discharge instructions to Belinda bo. Pt leaves ED in ambulance. [facility] 10-21-2024 Emergency department Note Gave report and discharge instructions to Belinda bo. Pt leaves ED in ambulance. Called report to Lilia at [facility]. EMERGENCY DEPARTMENT ENCOUNTER Pt Name: Ubaldo Arango Birthdate 1950 Date of evaluation: 10/21/2024 ED Provider: Nilo Kennedy MD CHIEF COMPLAINT Chief Complaint Patient presents with Cough Per ambulance pt has had chest congestion and nausea, pt non-verbal and unable to express symptoms Nausea HISTORY OF PRESENT ILLNESS (Location/Symptom, Timing/Onset, Context/Setting, Quality, Duration, Modifying Factors, Severity) Note limiting factors. I wore appropriate PPE for the entirety of this encounter. HPI Ubaldo Arango is a 74 y.o. female who presents to the emergency department with chief complaint of cough, congestion, nausea. 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 She is unable to communicate with us to give history. She is sent to us from her assisted because of increased cough, sneezing, congestion. Patient also had an episode of vomiting. Nursing Notes were reviewed. Limitations to history: Altered mental status/confusion Outside historians: EMS REVIEW OF SYSTEMS Review of Systems: Limited due to patient's history of anoxic brain injury PAST MEDICAL HISTORY Past Medical History: Diagnosis Date Anoxic brain damage (CMS/HCC) Aphasia Aphasia Constipation Convulsions (CMS/HCC) Dementia (CMS/HCC) Dementia (CMS/HCC) Dysphagia Dysphagia Gastroesophageal reflux Hearing loss HTN (hypertension) Hypothyroidism PVD (peripheral vascular disease) (CMS/HCC) Schizoaffective disorder (CMS/HCC) de Schizoaffective disorder (CMS/HCC) Smoker SURGICAL HISTORY No past surgical history on file. CURRENT MEDICATIONS Previous Medications BUSPIRONE (BUSPAR) 10 MG TABLET Take 10 mg by mouth 3 times daily. DIVALPROEX (DEPAKOTE) 125 MG EC TABLET Take 125 mg by mouth 3 times daily. ETHOSUXIMIDE (ZARONTIN) 250 MG/5ML SOLUTION Take 600 mg by mouth 2 times daily. FAMOTIDINE (PEPCID) 20 MG TABLET Take 20 mg by mouth daily. FUROSEMIDE (LASIX) 8 MG/ML SOLUTION Take 80 mg by mouth daily. LEVOTHYROXINE (SYNTHROID, LEVOXYL) 100 MCG TABLET Take 100 mcg by mouth daily. LORATADINE (CLARITIN) 10 MG TABLET Take 10 mg by mouth daily. METOCLOPRAMIDE (REGLAN) 10 MG TABLET Take 10 mg by mouth 2 times daily. METOPROLOL TARTRATE (LOPRESSOR) 100 MG TABLET Take 100 mg by mouth daily. QUETIAPINE XR (SEROQUEL XR) 50 MG 24 HR TABLET Take 50 mg by mouth 2 times daily. SERTRALINE (ZOLOFT) 25 MG TABLET Take 75 mg by mouth daily. THERAPEUTIC MULTIVITAMIN-MINERALS (THERAGRAN-M) TABLET Take 1 tablet by mouth daily. ALLERGIES Patient has no known allergies. FAMILY HISTORY No family history on file. SOCIAL HISTORY Social History Socioeconomic History Marital status: Single Tobacco Use Smoking status: Former Current packs/day: 0.00 Types: Cigarettes Quit date: 08/05/1979 Years since quittin.2 Smokeless tobacco: Never Substance and Sexual Activity Drug use: Never SCREENINGS PHYSICAL EXAM ED Triage Vitals [10/21/24 1327] Temp Heart Rate Resp BP 36.1 C (96.9 F) 80 (!) 28 (!) 156/74 SpO2 Temp Source Heart Rate Source Patient Position 96 % Axillary Monitor Lying BP Location FiO2 (%) Left arm -- Physical Exam: Vital signs reviewed in nurse's notes. Patient is nontoxic in appearance. No respiratory distress. Head: Normocephalic, atraumatic Eyes: Pupils are equal, round and reactive to light. EOMI. Conjunctiva clear. Sclera anicteric ENT: Mucous membranes moist. Throat shows no erythema exudates or edema. Neck: No anterior adenopathy. No tenderness or stiffness. Lungs: Clear to auscultation bilaterally. No wheezing rales or rhonchi. Heart: Regular rate and rhythm. No audible murmur or gallop. Abdomen: Soft, nondistended, nontender. No rebound or guarding. No signs of peritonitis. Extremities: No gross deformity. No obvious tenderness. No obvious joint swelling. No calf tenderness. No lower extremity edema. Good distal pulses in all 4 extremities. Neurologic: Alert cannot assess orientation. No VS focal motor, sensory deficits in all 4 extremities. DIAGNOSTIC RESULTS RADIOLOGY (Per Emergency Physician): Chest x-ray: No acute infiltrate. No effusion. Interpreted by this examiner. Interpretation per the Radiologist below, if available at the time of this note: XR chest 1 view Final Result No evidence of an acute cardiopulmonary abnormality. Report Dictated on Electronically Signed By: Arden Roblero MD Electronically Signed Date/Time: 10/21/2024 2:42 PM EDT LABS: Labs Reviewed BASIC METABOLIC PANEL - Abnormal Result Value SODIUM 135 (*) POTASSIUM 4.8 CHLORIDE 101 CARBON DIOXIDE 27 UREA NITROGEN 31 (*) CREATININE 0.82 GLUCOSE 96 CALCIUM 9.2 ANION GAP 7 eGFR 74.7 CBC WITH AUTO DIFFERENTIAL - Abnormal Auto WBC 8.8 RBC 4.41 Hemoglobin 11.0 (*) Hematocrit 34.8 (*) MCV 78.9 MCH 24.9 (*) MCHC 31.6 RDW 18.2 (*) Platelets 321 MPV 9.4 nRBC 0.0 Neutrophils Relative 50.3 Lymphocytes Relative 32.1 Monocytes Relative 12.4 Eosinophils Relative 4.0 Basophils Relative 0.9 Immature Grans % 0.3 Neutrophils Absolute 4.4 Lymphocytes Absolute 2.8 Monocytes Absolute 1.1 (*) Eosinophils Absolute 0.4 Basophils Absolute 0.1 Immature Grans Absolute 0.0 SARS-COV-2, FLU A/B, AND RSV COMBO - Normal SARS-CoV-2 Not Detected Respiratory Syncytial Virus Not Detected Influenza A Not Detected Influenza B Not Detected Narrative: Methodology: real-time, RT-PCR The SARS-CoV-2, Flu A/B, and RSV Combo assay is intended for in vitro diagnostic use under the FDA Emergency Use Authorization (EUA). This test has not been FDA cleared or approved. In compliance with this authorization, please visit www.fda.gov/media/755093/download or www.fda.gov/media/632866/download to access the applicable information sheets. MAGNESIUM - Normal MAGNESIUM 2.1 Narrative: Higher values can be expected in females during menses. Lab studies obtained. COVID testing is negative. White blood cell count is normal. No severe electrolyte abnormalities. Lab studies reviewed by this examiner EMERGENCY DEPARTMENT COURSE and DIFFERENTIAL DIAGNOSIS/MDM: Vitals: Vitals: 10/21/24 1327 BP: (!) 156/74 BP Location: Left arm Patient Position: Lying Pulse: 80 Resp: (!) 28 Temp: 36.1 C (96.9 F) TempSrc: Axillary SpO2: 96% Weight: 77.1 kg (170 lb) Patient has cough, respiratory infection. She does not have any hypoxia. Her initial respiratory was documented in the high 20s however this was when patient was anxious and scared when she first arrived here. She becomes hyperventilatory when staff is in the room but if were outside the room and observing patient she has a respiratory rate near 20. Clinically she does not appear to be in respiratory distress. I do feel she can be followed up back at the extended care facility. Return if worse or new symptoms or problems. The patient presented with chief complaint of cough. The differential diagnosis associated with this patient's presentation includes pneumonia, aspiration, URI, COVID, influenza, COPD, CHF. Our workup consisted of ordering/reviewing: Chest x-ray, laboratory studies. To aid in management, I performed an independent interpretation of Xray(s) chest x-ray as above. The patient will be Discharged. Medications - No data to display REVAL: PROCEDURES: Unless otherwise noted below, none Procedures Patients symptoms are consistent with sepsis, severe sepsis, or septic shock (If yes use ".sepsiscoremeasure"): no FINAL IMPRESSION 1. Acute cough 2. Viral upper respiratory tract infection DISPOSITION Discharge 10/21/2024 03:36:08 PM PATIENT REFERRED TO: Wale Cadena [address] [facility] [address] [facility] [address] Call in 2 days DISCHARGE MEDICATIONS: New Prescriptions No medications on file (Comment: Please note this report has been produced using speech recognition software and may contain errors related to that system including errors in grammar, punctuation, and spelling, as well as words and phrases that may be inappropriate. If there are any questions or concerns please feel free to contact the dictating provider for clarification.) Nilo Kennedy MD (electronically signed) Emergency Medicine Provider Nilo Kennedy MD 10/21/24 1536 documented in this encounter [facility] 10-21-2024 Emergency department Note Called report to Lilia at [facility]. [facility] 10-21-2024 Physician Emergency department Note EMERGENCY DEPARTMENT ENCOUNTER Pt Name: Ubaldo Arango Birthdate 1950 Date of evaluation: 10/21/2024 ED Provider: Nilo Kennedy MD CHIEF COMPLAINT Chief Complaint Patient presents with Cough Per ambulance pt has had chest congestion and nausea, pt non-verbal and unable to express symptoms Nausea HISTORY OF PRESENT ILLNESS (Location/Symptom, Timing/Onset, Context/Setting, Quality, Duration, Modifying Factors, Severity) Note limiting factors. I wore appropriate PPE for the entirety of this encounter. HPI Ubaldo Arango is a 74 y.o. female who presents to the emergency department with chief complaint of cough, congestion, nausea. 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 She is unable to communicate with us to give history. She is sent to us from her assisted because of increased cough, sneezing, congestion. Patient also had an episode of vomiting. Nursing Notes were reviewed. Limitations to history: Altered mental status/confusion Outside historians: EMS REVIEW OF SYSTEMS Review of Systems: Limited due to patient's history of anoxic brain injury PAST MEDICAL HISTORY Past Medical History: Diagnosis Date Anoxic brain damage (CMS/HCC) Aphasia Aphasia Constipation Convulsions (CMS/HCC) Dementia (CMS/HCC) Dementia (CMS/HCC) Dysphagia Dysphagia Gastroesophageal reflux Hearing loss HTN (hypertension) Hypothyroidism PVD (peripheral vascular disease) (CMS/HCC) Schizoaffective disorder (CMS/HCC) de Schizoaffective disorder (CMS/HCC) Smoker SURGICAL HISTORY No past surgical history on file. CURRENT MEDICATIONS Previous Medications BUSPIRONE (BUSPAR) 10 MG TABLET Take 10 mg by mouth 3 times daily. DIVALPROEX (DEPAKOTE) 125 MG EC TABLET Take 125 mg by mouth 3 times daily. ETHOSUXIMIDE (ZARONTIN) 250 MG/5ML SOLUTION Take 600 mg by mouth 2 times daily. FAMOTIDINE (PEPCID) 20 MG TABLET Take 20 mg by mouth daily. FUROSEMIDE (LASIX) 8 MG/ML SOLUTION Take 80 mg by mouth daily. LEVOTHYROXINE (SYNTHROID, LEVOXYL) 100 MCG TABLET Take 100 mcg by mouth daily. LORATADINE (CLARITIN) 10 MG TABLET Take 10 mg by mouth daily. METOCLOPRAMIDE (REGLAN) 10 MG TABLET Take 10 mg by mouth 2 times daily. METOPROLOL TARTRATE (LOPRESSOR) 100 MG TABLET Take 100 mg by mouth daily. QUETIAPINE XR (SEROQUEL XR) 50 MG 24 HR TABLET Take 50 mg by mouth 2 times daily. SERTRALINE (ZOLOFT) 25 MG TABLET Take 75 mg by mouth daily. THERAPEUTIC MULTIVITAMIN-MINERALS (THERAGRAN-M) TABLET Take 1 tablet by mouth daily. ALLERGIES Patient has no known allergies. FAMILY HISTORY No family history on file. SOCIAL HISTORY Social History Socioeconomic History Marital status: Single Tobacco Use Smoking status: Former Current packs/day: 0.00 Types: Cigarettes Quit date: 08/05/1979 Years since quittin.2 Smokeless tobacco: Never Substance and Sexual Activity Drug use: Never SCREENINGS PHYSICAL EXAM ED Triage Vitals [10/21/24 1327] Temp Heart Rate Resp BP 36.1 C (96.9 F) 80 (!) 28 (!) 156/74 SpO2 Temp Source Heart Rate Source Patient Position 96 % Axillary Monitor Lying BP Location FiO2 (%) Left arm -- Physical Exam: Vital signs reviewed in nurse's notes. Patient is nontoxic in appearance. No respiratory distress. Head: Normocephalic, atraumatic Eyes: Pupils are equal, round and reactive to light. EOMI. Conjunctiva clear. Sclera anicteric ENT: Mucous membranes moist. Throat shows no erythema exudates or edema. Neck: No anterior adenopathy. No tenderness or stiffness. Lungs: Clear to auscultation bilaterally. No wheezing rales or rhonchi. Heart: Regular rate and rhythm. No audible murmur or gallop. Abdomen: Soft, nondistended, nontender. No rebound or guarding. No signs of peritonitis. Extremities: No gross deformity. No obvious tenderness. No obvious joint swelling. No calf tenderness. No lower extremity edema. Good distal pulses in all 4 extremities. Neurologic: Alert cannot assess orientation. No VS focal motor, sensory deficits in all 4 extremities. DIAGNOSTIC RESULTS RADIOLOGY (Per Emergency Physician): Chest x-ray: No acute infiltrate. No effusion. Interpreted by this examiner. Interpretation per the Radiologist below, if available at the time of this note: XR chest 1 view Final Result No evidence of an acute cardiopulmonary abnormality. Report Dictated on Electronically Signed By: Arden Roblero MD Electronically Signed Date/Time: 10/21/2024 2:42 PM EDT LABS: Labs Reviewed BASIC METABOLIC PANEL - Abnormal Result Value SODIUM 135 (*) POTASSIUM 4.8 CHLORIDE 101 CARBON DIOXIDE 27 UREA NITROGEN 31 (*) CREATININE 0.82 GLUCOSE 96 CALCIUM 9.2 ANION GAP 7 eGFR 74.7 CBC WITH AUTO DIFFERENTIAL - Abnormal Auto WBC 8.8 RBC 4.41 Hemoglobin 11.0 (*) Hematocrit 34.8 (*) MCV 78.9 MCH 24.9 (*) MCHC 31.6 RDW 18.2 (*) Platelets 321 MPV 9.4 nRBC 0.0 Neutrophils Relative 50.3 Lymphocytes Relative 32.1 Monocytes Relative 12.4 Eosinophils Relative 4.0 Basophils Relative 0.9 Immature Grans % 0.3 Neutrophils Absolute 4.4 Lymphocytes Absolute 2.8 Monocytes Absolute 1.1 (*) Eosinophils Absolute 0.4 Basophils Absolute 0.1 Immature Grans Absolute 0.0 SARS-COV-2, FLU A/B, AND RSV COMBO - Normal SARS-CoV-2 Not Detected Respiratory Syncytial Virus Not Detected Influenza A Not Detected Influenza B Not Detected Narrative: Methodology: real-time, RT-PCR The SARS-CoV-2, Flu A/B, and RSV Combo assay is intended for in vitro diagnostic use under the FDA Emergency Use Authorization (EUA). This test has not been FDA cleared or approved. In compliance with this authorization, please visit www.fda.gov/media/275724/download or www.fda.gov/media/713539/download to access the applicable information sheets. MAGNESIUM - Normal MAGNESIUM 2.1 Narrative: Higher values can be expected in females during menses. Lab studies obtained. COVID testing is negative. White blood cell count is normal. No severe electrolyte abnormalities. Lab studies reviewed by this examiner EMERGENCY DEPARTMENT COURSE and DIFFERENTIAL DIAGNOSIS/MDM: Vitals: Vitals: 10/21/24 1327 BP: (!) 156/74 BP Location: Left arm Patient Position: Lying Pulse: 80 Resp: (!) 28 Temp: 36.1 C (96.9 F) TempSrc: Axillary SpO2: 96% Weight: 77.1 kg (170 lb) Patient has cough, respiratory infection. She does not have any hypoxia. Her initial respiratory was documented in the high 20s however this was when patient was anxious and scared when she first arrived here. She becomes hyperventilatory when staff is in the room but if were outside the room and observing patient she has a respiratory rate near 20. Clinically she does not appear to be in respiratory distress. I do feel she can be followed up back at the extended care facility. Return if worse or new symptoms or problems. The patient presented with chief complaint of cough. The differential diagnosis associated with this patient's presentation includes pneumonia, aspiration, URI, COVID, influenza, COPD, CHF. Our workup consisted of ordering/reviewing: Chest x-ray, laboratory studies. To aid in management, I performed an independent interpretation of Xray(s) chest x-ray as above. The patient will be Discharged. Medications - No data to display REVAL: PROCEDURES: Unless otherwise noted below, none Procedures Patients symptoms are consistent with sepsis, severe sepsis, or septic shock (If yes use ".sepsiscoremeasure"): no FINAL IMPRESSION 1. Acute cough 2. Viral upper respiratory tract infection DISPOSITION Discharge 10/21/2024 03:36:08 PM PATIENT REFERRED TO: Wale Cadena [address] [facility] [address] [facility] [address] Call in 2 days DISCHARGE MEDICATIONS: New Prescriptions No medications on file (Comment: Please note this report has been produced using speech recognition software and may contain errors related to that system including errors in grammar, punctuation, and spelling, as well as words and phrases that may be inappropriate. If there are any questions or concerns please feel free to contact the dictating provider for clarification.) Nilo Kennedy MD (electronically signed) Emergency Medicine Provider Nilo Kennedy MD 10/21/24 1536 [facility] 07-11-2024 Telephone encounter Note S: Barb, Nurse at [facility] [phone] spoke with [facility] nurse regarding medication problem B: Onset of symptoms/concern 07/11/24 A: [facility] patient needs refill of Hydrocodone 5/325 mg one by mouth daily. [facility] pharmacy is [facility] ([facility] R: Advised Barb that medication is a narcotic and will have to wait until office is open. Barb understands care advice. No further needs at this time. Barb instructed to call back with new or worsening symptoms. Reason for Disposition Caller requesting a CONTROLLED substance prescription refill (e.g., narcotics, ADHD medicines) Protocols used: Medication Refill and Renewal [id number] [facility] 07-11-2024 Miscellaneous Notes S: Barb, Nurse at [facility] [phone] spoke with [facility] nurse regarding medication problem B: Onset of symptoms/concern 07/11/24 A: [facility] patient needs refill of Hydrocodone 5/325 mg one by mouth daily. [facility] pharmacy is [facility] ([facility]) R: Advised Barb that medication is a narcotic and will have to wait until office is open. Babr understands care advice. No further needs at this time. Barb instructed to call back with new or worsening symptoms. Reason for Disposition Caller requesting a CONTROLLED substance prescription refill (e.g., narcotics, ADHD medicines) Protocols used: Medication Refill and Renewal [id number] documented in this encounter [facility] 04-18-2022 History of Presen t illness Narrative Planned for [facility]; active discharge order in place. No new nutrition interventions at this time. Pt continues on Minced and Moist, 2g Na, mildly thick liquids. Pt on appropriate ONS Magic cup BID, which complies with pt's liquid diet order consistency. Magic cup provides 290 kcals, 9 g protein per serving. Continue with current interventions. RD will follow until discharge. Report called to Bill at [facility] Images from the original note were not included. Palliative Progress Note Chief Complaint: Ubaldo Arango is a 71 y.o. female with chief complaint of fevers with seizure on 04-08. Palliative care is actively following this patient. Assessment/Plan Assessment/Plan Goals of care Pt is not able to make her own decisions. [place] Probate court confirmed guardianship(person only not financial) naming Cleveland Arango [phone]( brother) as 1st and Zachary Arango [phone]( sister in law) as [address]nd[address] Will place this in the chart. Pt resides at [facility], plans for her to return when medially stable. DNRCCA/DNI, limited code while inpt Goals are for continued medical care and to return back to the facility when medically stable. Septicemia + blood culture gram negative bacillus Cefdinir BID Dysphagia Aspiration noted with drinking Speech following Schizoaffective disorder Quetiapine 50 mg BID Depakote TID Seizures Ethosuximide 600 mg BID Palliative Care Encounter Limited will continue to follow for ongoing monitoring of progression of Fever will continue to evaluate test results related to septicemia , medication effectiveness for Anxiety and Agitation Ongoing counseling of patient and family regarding diagnoses of Dementia, Determining prognosis in serious illness of Dementia COVID-19 Risk Screening Tool: Has patient been tested for COVID-19 this admission? yes- date 04-10-22 Is the patient admitted from a nursing facility? yes Has the patient been in close contact with a COVID-19 positive patient? no Did patient recently receive COVID-19 vaccine? no COVID-19 ROS: Fever yes Cough no Shortness of Breath no Myalgia no Loss of Taste/Smell no Diarrhea/GI Symptoms no If yes, to any of the above questions and patient has not had a negative test this admission consider COVID-19 testing. Active Hospital Problems Diagnosis Date Noted Severe sepsis (HCC) [A41.9, R65.20] 04/10/2022 Priority: Medium Time/Communication Greater than 51% of time spent, total 25 minutes in counseling and coordination of care at the bedside regarding Goals of Care Discharge planning: to be determined Patient meets criteria for general inpatient hospice care including the following: N/A- Palliative Care Patient Referrals to: none today Discussed patient and the plan of care with the other interdisciplinary team (IDT) members of Palliative Team, and with Patient and Floor Nurse I have discussed the patient's case and plan of care with my collaborating physician Dr. Vang Subjective: Hospital days prior to consult: 1 Brief history for this admission 71 yr old female from [facility] presented to the ER via EMS for fevers with a seizure 2 days prior. Appear pt may have missed medications likely contributing to the seizure. Since admission pt BC have returned + for gram negative bacillus. ID now consulted. XRC showed suspected PNA. Medical history includes anoxic brain injury, asphasia, constipation, dementia, GERD, hearing loss, HTN, hypothyroidism, PVD, schizoaffective disorder, former smoker. Palliative medicine has been consulted for goals of care, symptom management and code conversation. 9-14 Met with pt at bedside. Is not interested in my visit today and wanting me to leave room. Did allow a very brief assessment. Does have coughing when drinking from sippy cup. Speech continues to follow along. Goals are clear and she has no unmanaged symptoms. Palliative will sign off today. Pain Assessment (If Pain Scale >0) Pt is nonverbal. Does not appear to be in any distress Goals of care:Live Longer, Improve or Maintain Function/Quality of Life, Support for Family/Caregiver, and Continue Current Management Advance Directives: limited Surrogate: Guardian Prognosis: unknown Spiritualassessment: No spiritual distress identified Bereavement and grief: Grief Issues Not Identified Past Medical History: Diagnosis Date Anoxic brain damage (HCC) Aphasia Aphasia Constipation Convulsions (HCC) Dementia (HCC) Dementia (HCC) Dysphagia Dysphagia Gastroesophageal reflux Hearing loss HTN (hypertension) Hypothyroidism PVD (peripheral vascular disease) (HCC) Schizoaffective disorder (HCC) de Schizoaffective disorder (HCC) Smoker No past surgical history on file. No family history on file. Unable to obtain family history due to pt is not able to have any meaningful conversation No Known Allergies ROS: See palliative care ROS/ESAS below; Detail ROS unable to obtain due to patient's mental status Review of Systems Family Meeting: Participants:No Family Meeting Held Today Family meeting was held to discuss: Objective: Physical Exam BP 135/89 Pulse 74 Temp (!) 96.7 F (35.9 C) (Temporal) Resp 18 Ht 5' 2" (1.575 m) Wt 167 lb 3.2 oz (75.8 kg) SpO2 98% BMI 30.58 kg/m Physical Exam Vitals reviewed. HENT: Head: Atraumatic. Right Ear: External ear normal. Left Ear: External ear normal. Mouth/Throat: Mouth: Mucous membranes are moist. Pharynx: Oropharynx is clear. Eyes: General: Right eye: No discharge. Left eye: No discharge. Cardiovascular: Rate and Rhythm: Normal rate. Pulses: Normal pulses. Pulmonary: Effort: Pulmonary effort is normal. Abdominal: General: Bowel sounds are normal. Musculoskeletal: Cervical back: Normal range of motion. Right lower leg: Edema present. Left lower leg: Edema present. Skin: General: Skin is warm and dry. Neurological: Mental Status: She is alert. Comments: Unable to assess Psychiatric: Comments: calm Hale Symptom Assessment Score Hale Score Pain Score 0 Tiredness Score 0 Nausea Score 0 Depression Score 0 Anxiety Score 2 Drowsiness Score 0 Anorexia Score (0= eating well, 10= not eating) 2 Wellbeing Score (10= worst sense of well-being) 2 Constipation 0 Dyspnea Score (0= no shortness of breath) 0 FLACC Scale (For Pain Assessment of the Non-Verbal Patient) Assessed by: provider. All other systems were reviewed and are negative. CurrentMedications: Inpatient medications reviewed: yes Home Medications reviewed: yes OARRS Reviewed:No Report Available 24 Hour PRN Meds: reviewed Results/Verification of Data Review Objective data reviewed: labs, images, records, medication use, vitals, and chart Data in Support of Terminal Illness: Is patient hospice appropriate? no Nursing staff reported pt had formed BM this am. Updated Harsha CARTER, currently awaiting AM labs results. This patient was seen as a hospital courtesy for improved patient care. Thank you for allowing me to participate in the medical care of your patient. Work Categories (check all that apply) [] Avoidable Day Recovered [] Query Response for [name] [x] Discharge Planning [] Readmission Risk Addressed [] PSI / HAC reviewed [] Med Rec Addressed [] SOI Expected Impact [] ROM Expected Impact [] POA Clarified [] PEDIGREE RESEARCHER Avoided [] Nursing Function [x] Provider Function for [Harsha CARTER] [] Orders Placed [] Symptom Assessment [] Patient Experience [] Patient / Caregiver Conversation Patient is refusing blood work this morning. Stool collected and sent to lab. Appeared more soft than loose. Pricila Mcleod NP notified. Speech Language Pathology Facility/Department: [facility] TE[facility] Dysphagia Treatment Note NAME: Ubaldo Arango : 1950 Allergies: No Known Allergies Current Diet Level: Minced and moist with mildly thick liquids. Compensatory Techniques [x]Small bolus [x]No straws [x]External pacing [x]Position patient upright Pain: No indication of pain. S: Pt was awake and holding sippy cup. Pt was positioned more upright in order to improve oral intake. She appeared distressed throughout the session (e.g., yelling "go" and becoming visibly upset when near). O: Assess PO tolerance and provide education to staff regarding swallowing function and precautions. A: Pt agreeable to water only. Water given in small cup only to control for slow rate and small bolus. Pt coughed 1x following trial of water. Suspect may have been too large of drink. (+cough with aspiration on MBS). Given time in between to allow reswallow. Refused pudding. 1 drink of coffee- single drink, no overt deficits. Pt not accepting crushed medications in pudding, therefore dissolved in coffee for ease of administration. [] Goal met [x] Progressing as expected [] Progressing slower than expected [] Medical status inhibits participation [] Goals not addressed this session [] Goals revised this session [] Unable to show any progress towards functional goals [] Progress towards functional goal is gradual / fair P: Continue POC. Probable discharged this evening pending c-diff screening. Patient Education: The patient was unable to participate with the education process. Spoke with the RN. No family is present at the bedside. The patient demonstrates poor level of comprehension. Total Minutes: 9 minutes Time Session Ended: 11:14 am Mary Mcgrath PLANT CONTROL OPERATOR Student A mask and gloves were worn throughout this session. Order placed for COVID swab for discharge planning This patient was seen as a hospital courtesy for improved patient care. Thank you for allowing me to participate in the medical care of your patient. Work Categories (check all that apply) [] Avoidable Day Recovered [] Query Response for [name] [x] Discharge Planning [] Readmission Risk Addressed [] PSI / HAC reviewed [] Med Rec Addressed [] SOI Expected Impact [] ROM Expected Impact [] POA Clarified [] PEDIGREE RESEARCHER Avoided [] Nursing Function [] Provider Function for [Harsha] [x] Orders Placed [] Symptom Assessment [] Patient Experience [] Patient / Caregiver Conversation Images from the original note were not included. Palliative Progress Note Chief Complaint: Ubaldo Arango is a 71 y.o. female with chief complaint of fevers with seizure on 04-08. Palliative care is actively following this patient. Assessment/Plan Assessment/Plan Goals of care Pt is not able to make her own decisions. [place] Probate court confirmed guardianship(person only not financial) naming Cleveland Arango [phone]( brother) as 1st and Zachary Arango [phone]( sister in law) as 2nd[address] Will place this in the chart. Pt resides at [facility], plans for her to return when medially stable. DNRCCA/DNI, limited code while inpt Goals are for continued medical care and to return back to the facility when medically stable. Septicemia + blood culture gram negative bacillus Cefdinir BID Dysphagia Speech following Schizoaffective disorder Quetiapine 50 mg BID Depakote TID Seizures Ethosuximide 600 mg BID Palliative Care Encounter Limited will continue to follow for ongoing monitoring of progression of Fever will continue to evaluate test results related to septicemia , medication effectiveness for Anxiety and Agitation Ongoing counseling of patient and family regarding diagnoses of Dementia, Determining prognosis in serious illness of Dementia COVID-19 Risk Screening Tool: Has patient been tested for COVID-19 this admission? yes- date 04-10-22 Is the patient admitted from a nursing facility? yes Has the patient been in close contact with a COVID-19 positive patient? no Did patient recently receive COVID-19 vaccine? no COVID-19 ROS: Fever yes Cough no Shortness of Breath no Myalgia no Loss of Taste/Smell no Diarrhea/GI Symptoms no If yes, to any of the above questions and patient has not had a negative test this admission consider COVID-19 testing. Active Hospital Problems Diagnosis Date Noted Severe sepsis (HCC) [A41.9, R65.20] 04/10/2022 Priority: Medium Time/Communication Greater than 51% of time spent, total 25 minutes in counseling and coordination of care at the bedside regarding Goals of Care Discharge planning: to be determined Patient meets criteria for general inpatient hospice care including the following: N/A- Palliative Care Patient Referrals to: none today Discussed patient and the plan of care with the other interdisciplinary team (IDT) members of Palliative Team, and with Patient and Floor Nurse I have discussed the patient's case and plan of care with my collaborating physician Dr. Vang Subjective: Hospital days prior to consult: 1 Subjective/Events 71 yr old female from [facility] presented to the ER via EMS for fevers with a seizure 2 days prior. Appear pt may have missed medications likely contributing to the seizure. Since admission pt BC have returned + for gram negative bacillus. ID now consulted. XRC showed suspected PNA. Medical history includes anoxic brain injury, asphasia, constipation, dementia, GERD, hearing loss, HTN, hypothyroidism, PVD, schizoaffective disorder, former smoker. Palliative medicine has been consulted for goals of care, symptom management and code conversation. 9-13 Met with pt at bedside. Is pleasant at first - not happy with assessment and wanting me to leave. No pain noted. Uses sippy cup for all fluids Pain Assessment (If Pain Scale >0) Pt is nonverbal. Does not appear to be in any distress Goals of care:Live Longer, Improve or Maintain Function/Quality of Life, Support for Family/Caregiver, and Continue Current Management Advance Directives: full code Surrogate: Guardian Prognosis: unknown Spiritualassessment: No spiritual distress identified Bereavement and grief: Grief Issues Not Identified Past Medical History: Diagnosis Date Anoxic brain damage (HCC) Aphasia Aphasia Constipation Convulsions (HCC) Dementia (HCC) Dementia (HCC) Dysphagia Dysphagia Gastroesophageal reflux Hearing loss HTN (hypertension) Hypothyroidism PVD (peripheral vascular disease) (HCC) Schizoaffective disorder (HCC) de Schizoaffective disorder (HCC) Smoker No past surgical history on file. No family history on file. Unable to obtain family history due to pt is not able to have any meaningful conversation No Known Allergies ROS: See palliative care ROS/ESAS below; Detail ROS unable to obtain due to patient's mental status Review of Systems Family Meeting: Participants:No Family Meeting Held Today Family meeting was held to discuss: Objective: Physical Exam BP (!) 138/57 Pulse 68 Temp (!) 96.3 F (35.7 C) (Temporal) Resp 18 Ht 5' 2" (1.575 m) Wt 167 lb 3.2 oz (75.8 kg) SpO2 93% BMI 30.58 kg/m Physical Exam Vitals reviewed. HENT: Head: Atraumatic. Right Ear: External ear normal. Left Ear: External ear normal. Mouth/Throat: Mouth: Mucous membranes are moist. Pharynx: Oropharynx is clear. Eyes: General: Right eye: No discharge. Left eye: No discharge. Cardiovascular: Rate and Rhythm: Normal rate. Pulses: Normal pulses. Pulmonary: Effort: Pulmonary effort is normal. Abdominal: General: Bowel sounds are normal. Musculoskeletal: Cervical back: Normal range of motion. Right lower leg: Edema present. Left lower leg: Edema present. Skin: General: Skin is warm and dry. Neurological: Mental Status: She is alert. Comments: Unable to assess Psychiatric: Comments: calm Hale Symptom Assessment Score Hale Score Pain Score 0 Tiredness Score 0 Nausea Score 0 Depression Score 0 Anxiety Score 2 Drowsiness Score 0 Anorexia Score (0= eating well, 10= not eating) 2 Wellbeing Score (10= worst sense of well-being) 2 Constipation 0 Dyspnea Score (0= no shortness of breath) 0 FLACC Scale (For Pain Assessment of the Non-Verbal Patient) Assessed by: provider. All other systems were reviewed and are negative. CurrentMedications: Inpatient medications reviewed: yes Home Medications reviewed: yes OARRS Reviewed:No Report Available 24 Hour PRN Meds: reviewed Results/Verification of Data Review Objective data reviewed: labs, images, records, medication use, vitals, and chart Data in Support of Terminal Illness: Is patient hospice appropriate? no Images from the original note were not included. Hospitalist Progress Note 04/17/2022 [phone]: Please reach me on Perfect [employer] patient care issues. [phone]: Please page [facility] Hospitalist for any issues. Subjective: Admit Date: 04/10/2022 PCP: Wale Cadena MD Room#: 249/2492 Interval History: Pt developed loose stools last night Large "blow out" +diarrhea today Didn't want to eat lunch Afebrile ROS unobtainable d/t mentation WBC 14.3K ADULT DIET; Dysphagia - Minced and Moist; Low Sodium (2 gm); Mildly Thick (Dows) ADULT ORAL NUTRITION SUPPLEMENT; Lunch, Dinner; Frozen Oral Supplement No data found. 24HR INTAKE/OUTPUT: Intake/Output Summary (Last 24 hours) at 04/17/2022 1400 Last data filed at 04/17/2022 1017 Gross per 24 hour Intake 750 ml Output -- Net 750 ml Past Medical History: Diagnosis Date Anoxic brain damage (HCC) Aphasia Aphasia Constipation Convulsions (HCC) Dementia (HCC) Dementia (HCC) Dysphagia Dysphagia Gastroesophageal reflux Hearing loss HTN (hypertension) Hypothyroidism PVD (peripheral vascular disease) (HCC) Schizoaffective disorder (HCC) de Schizoaffective disorder (HCC) Smoker LABS: CBC: Recent Labs 04/16/22 0519 04/17/22 1039 WBC 14.2* 14.3* RBC 3.98 3.72* HGB 12.0 11.2* HCT 36.4 34.1* MCV 91.4 91.7 RDW 15.7* 15.5* PLT 410 438 BMP: Recent Labs 04/15/22 0422 04/16/22 0519 04/17/22 1039 NA 142 141 140 K 3.8 3.7 3.5 CL 111* 111* 106 CO2 28 23 30 BUN 16 13 10 CREATININE 0.69 0.70 0.63 GLUCOSE 105* 95 92 CALCIUM 8.8 8.9 8.7 ANIONGAP 3 8 4 LIVER PROFILE:No results for input(s): AST, ALT, BILITOT, ALKPHOS, LABALBU, PROT in the last 72 hours. PT/INR: No results for input(s): PROTIME, INR in the last 72 hours. CARDIAC ENZYMES: No results for input(s): TROPONINI in the last 72 hours. Procalcitonin: Lab Results Component Value Date/Time PROCAL 0.76 04/12/2022 03:30 AM COVID-19 PCR: No results for input(s): COVID19 in the last 72 hours. Objective: Vitals: BP (!) 138/57 Pulse 68 Temp (!) 96.3 F (35.7 C) (Temporal) Resp 18 Ht 5' 2" (1.575 m) Wt 167 lb 3.2 oz (75.8 kg) SpO2 93% BMI 30.58 kg/m Pulse Ox: SpO2 Av.5 % Min: 93 % Max: 98 % Supplemental O2: O2 Flow Rate (L/min): 2 L/min General appearance: No apparent distress HEENT: Normal cephalic, atraumatic without obvious deformity. Pupils equal, round, and reactive to light. Extra ocular muscles intact. Conjunctivae/corneas clear. Neck: Supple, with full range of motion. No jugular venous distention. Trachea midline. No lymphadenopathy. Respiratory: Normal respiratory effort. Clear to auscultation Cardiovascular: Regular rate and rhythm with normal S1/S2 without murmurs, rubs or gallops. Abdomen: Soft, non-tender, non-distended with normal bowel sounds. No rebound or guarding. Musculoskeletal: No clubbing, cyanosis. Trace LE edema Skin: Skin color, texture, turgor normal. No rashes or lesions. Neurologic: Neurovascularly intact without any focal sensory/motor deficits. Cranial nerves: II-XII intact, grossly non-focal. Medications: sodium chloride cefdinir 300 mg Oral 2 times per day sodium chloride flush 5-40 mL IntraVENous 2 times per day enoxaparin 40 mg SubCUTAneous Daily divalproex 250 mg Oral TID ondansetron 4 mg IntraVENous Once QUEtiapine 50 mg Oral BID metoprolol 100 mg Oral Daily metoclopramide 10 mg Oral BID levothyroxine 100 mcg Oral Daily ethosuximide 600 mg Oral BID Assessment Concern for severe sepsis due to PNA/UTI (covering gram neg organisms/MRSA + prev Ecoli UTI w/ESBL): +GN bacteremia; urine cultures (growing E coli). PCT 0.76, sputum culture ordered- no results. Transitioned to PO Cefdinir through 04/19. Gram negative bacteremia (E coli)- repeat blood cultures ordered 04/12- 2 sets staph epi (likely contaminant) Diarrhea, worsening leukocytosis - check Cdiff Acute resp insufficiency: oxygen weaned off; Albuterol nebs PRN Lactic acidosis d/t above: improved. Mild troponin leak, likely demand ischemia d/t above: repeat improved. Continue telemetry. Possible breakthrough seizures after missed meds: Seizure precautions ordered. Continue Ethosuximide, Valproic Acid. LA, probable ATN, improved. Renally dose medications as indicated. Nausea/vomiting: improved. Diet as jhonathan Hypokalemia: replacement ordered; improved Dysphagia: ST following. Adjusted diet. Aspiration precautions. Previous anoxic brain injury, unspecified dementia, schizoaffective disorder: continue Quetiapine Hypothyroidism: continue Levothyroxine HTN; continue BB Obesity, Body mass index is 30.58 kg/m . Plan -am labs, replace lytes prn -increase activity -DVT prophylaxis: [x] Lovenox [] Heparin [] SCDs [x] Encourage ambulation [] Already on Anticoagulation Advance Directive: Limited Discharge planning: C diff ordered; need to make sure pt is able to maintain hydration independently prior to DC TYRON Johnston CNP Division of Hospitalist Medicine Inpatient Medical Services/[facility] Patient is refusing lab work to be drawn as well as vital signs to be obtained. I made Dr. Whyte with [facility] aware. Images from the original note were not included. [facility] - Infectious Diseases Attending Progress Note Subjective: Pt non verbal from hx anoxic brain injury Per RN, soft stool, no cough, no other issues Objective: Vitals: Patient Vitals for the past 24 hrs: BP Temp Temp src Pulse Resp SpO2 04/16/22 1611 123/75 98 F (36.7 C) Temporal 66 14 93 % 04/16/22 0901 (!) 152/81 97.7 F (36.5 C) Temporal 74 16 97 % 04/16/22 0840 (!) 152/71 -- -- 74 -- -- 04/16/22 0511 104/76 (!) 96.7 F (35.9 C) Temporal 70 18 95 % 04/16/22 0037 116/70 96.9 F (36.1 C) Temporal 74 18 94 % 04/15/22 2036 (!) 141/73 96.9 F (36.1 C) Temporal 71 18 96 % Physical Exam Vitals reviewed. Constitutional: General: She is not in acute distress. Appearance: Normal appearance. She is not ill-appearing, toxic-appearing or diaphoretic. HENT: Head: Normocephalic and atraumatic. Nose: Nose normal. No congestion or rhinorrhea. Mouth/Throat: Mouth: Mucous membranes are dry. Pharynx: Oropharynx is clear. No oropharyngeal exudate or posterior oropharyngeal erythema. Eyes: General: No scleral icterus. Extraocular Movements: Extraocular movements intact. Conjunctiva/sclera: Conjunctivae normal. Cardiovascular: Rate and Rhythm: Normal rate and regular rhythm. Heart sounds: Normal heart sounds. No murmur heard. Pulmonary: Effort: Pulmonary effort is normal. No respiratory distress. Breath sounds: Normal breath sounds. No wheezing, rhonchi or rales. Abdominal: General: Abdomen is flat. Bowel sounds are normal. There is no distension. Palpations: Abdomen is soft. Tenderness: There is no abdominal tenderness. There is no right CVA tenderness, left CVA tenderness, guarding or rebound. Musculoskeletal: General: No swelling, tenderness or deformity. Normal range of motion. Right lower leg: No edema. Left lower leg: No edema. Skin: General: Skin is warm and dry. Coloration: Skin is not jaundiced. Findings: No erythema, lesion or rash. Neurological: General: No focal deficit present. Mental Status: She is alert. Mental status is at baseline. Sensory: No sensory deficit. Labs: Recent Labs 04/14/2224804/15/22 0422 04/16/22 0519 NA 146* 142 141 K 3.8 3.8 3.7 CL 117* 111* 111* CO2 24 28 23 BUN 20 16 13 CREATININE 0.67 0.69 0.70 GLUCOSE 98 105* 95 CALCIUM 8.1* 8.8 8.9 Recent Labs 04/14/2224804/16/22 0519 WBC 9.8 14.2* HGB 10.8* 12.0 HCT 32.2* 36.4 PLT 288 410 GRANULOCYTES -- 63.2 LYMPHOPCT -- 26.2 MONOPCT 6 7.0 LABEOS 1 2.5 BASOPCT 0 1.1 NEUTROABS 8.1 9.0* Lab Results Component Value Date/Time [facility] 19.1 12/02/2020 10:32 AM No results found for: CKTOTAL Micro: No results for input(s): COVID19 in the last 72 hours. E. Coli rosario S Lines: Radiography/Echo/Other: Antimicrobials, Start/End Dates: Recent Abx Admin ceFAZolin (ANCEF) 2000 mg in dextrose 4 % 100 mL IVPB (premix) (mg) 2,000 mg New Bag 04/16/22 1236 2,000 mg New Bag 0540 2,000 mg New Bag 04/15/22 2126 Impression: Ubaldo Arango is a 71 y.o. female E. Coli bacteremia from urinary source Clinically stable Ok to complete therapy with PO antibiotics Suggest Cefdinir 300 mg by mouth every 12 hours through 04/19/22 Can DC Cefazolin D/W Dr. Moshe Castaneda Please re-consult as needed More that 51% total time 25 minutes were spent in counseling (or coordinating care) and in providing discussion regarding Medical history, new microbiological, surgical and radiographic data as well as medical and surgical management options. Images from the original note were not included. Hospitalist Progress Note 04/16/[id number]: Please reach me on Perfect Serve patient care issues. [phone]: Please page [facility] night Hospitalist for any issues. Subjective: Admit Date: 04/10/2022 PCP: Wale Cadena MD Room#: 249/2492 Interval History: No overnight issues per nursing Smiling/holding sippy cup and watching television Nods yes/no; blowing kisses Appears comfortable ROS unobtainable d/t cognitive impairment Afebrile ADULT DIET; Dysphagia - Minced and Moist; Low Sodium (2 gm); Mildly Thick (Dows) ADULT ORAL NUTRITION SUPPLEMENT; Lunch, Dinner; Frozen Oral Supplement No data found. 24HR INTAKE/OUTPUT: Intake/Output Summary (Last 24 hours) at 04/16/2022 1110 Last data filed at 04/15/2022 1728 Gross per 24 hour Intake 500 ml Output -- Net 500 ml Past Medical History: Diagnosis Date Anoxic brain damage (HCC) Aphasia Aphasia Constipation Convulsions (HCC) Dementia (HCC) Dementia (HCC) Dysphagia Dysphagia Gastroesophageal reflux Hearing loss HTN (hypertension) Hypothyroidism PVD (peripheral vascular disease) (HCC) Schizoaffective disorder (HCC) de Schizoaffective disorder (HCC) Smoker LABS: CBC: Recent Labs 04/14/22 0249 04/16/22 0519 WBC 9.8 14.2* RBC 3.55* 3.98 HGB 10.8* 12.0 HCT 32.2* 36.4 MCV 90.9 91.4 RDW 15.4* 15.7* PLT 288 410 BMP: Recent Labs 04/14/22 0249 04/15/22 0422 04/16/22 0519 NA 146* 142 141 K 3.8 3.8 3.7 CL 117* 111* 111* CO2 24 28 23 BUN 20 16 13 CREATININE 0.67 0.69 0.70 GLUCOSE 98 105* 95 CALCIUM 8.1* 8.8 8.9 ANIONGAP 5 3 8 Procalcitonin: Lab Results Component Value Date/Time PROCAL 0.76 04/12/2022 03:30 AM COVID-19 PCR: No results for input(s): COVID19 in the last 72 hours. Objective: Vitals: BP (!) 152/81 Pulse 74 Temp 97.7 F (36.5 C) (Temporal) Resp 16 Ht 5' 2" (1.575 m) Wt 167 lb 3.2 oz (75.8 kg) SpO2 97% BMI 30.58 kg/m Pulse Ox: SpO2 Av.3 % Min: 94 % Max: 97 % Supplemental O2: O2 Flow Rate (L/min): 2 L/min General appearance: No apparent distress, nods yes/no. Smiling/waving HEENT: Normal cephalic, atraumatic without obvious deformity. Pupils equal, round, and reactive to light. Extra ocular muscles intact. Conjunctivae/corneas clear. Neck: Supple, with full range of motion. No jugular venous distention. Trachea midline. No lymphadenopathy. Respiratory: shallow respirations. Few rhonchia Cardiovascular: Regular rate and rhythm with normal S1/S2 without murmurs, rubs or gallops. Abdomen: Soft, non-tender, non-distended with normal bowel sounds. No rebound or guarding. Musculoskeletal: No clubbing, cyanosis. Full range of motion without deformity. Trace LE edema Skin: Skin color, texture, turgor normal. No rashes or lesions. Neurologic: Neurovascularly intact without any focal sensory/motor deficits. Cranial nerves: II-XII intact, grossly non-focal. Medications: sodium chloride ceFAZolin 2,000 mg IntraVENous Q8H sodium chloride flush 5-40 mL IntraVENous 2 times per day enoxaparin 40 mg SubCUTAneous Daily divalproex 250 mg Oral TID ondansetron 4 mg IntraVENous Once QUEtiapine 50 mg Oral BID metoprolol 100 mg Oral Daily metoclopramide 10 mg Oral BID levothyroxine 100 mcg Oral Daily ethosuximide 600 mg Oral BID Assessment Concern for severe sepsis due to PNA/UTI (covering gram neg organisms/MRSA + prev Ecoli UTI w/ESBL): +GN bacteremia; urine cultures (growing E coli). PCT 0.76, sputum culture ordered- no results. ATB adjustments per ID . Gram negative bacteremia - repeat blood cultures ordered 04/12- 08/06 sets staph epi (likely contaminant) Acute resp insufficiency: oxygen weaned off; Albuterol nebs PRN Lactic acidosis d/t above: improved. Mild troponin leak, likely demand ischemia d/t above: repeat improved. Continue telemetry. Possible breakthrough seizures after missed meds: Seizure precautions ordered. Continue Ethosuximide, Valproic Acid. LA, probable ATN, improved. Renally dose medications as indicated. Nausea/vomiting: improved. Diet as jhonathan Hypokalemia: replacement ordered; improved Dysphagia: ST following. Adjusted diet. Aspiration precautions. Previous anoxic brain injury, unspecified dementia, schizoaffective disorder: continue Quetiapine Hypothyroidism: continue Levothyroxine HTN; continue BB Obesity, Body mass index is 30.58 kg/m . Plan -am labs, replace lytes prn -increase activity -DVT prophylaxis: [x] Lovenox [] Heparin [] SCDs [x] Encourage ambulation [] Already on Anticoagulation Advance Directive: Limited Discharge planning: TBD TYRON Johnston CNP Division of Hospitalrust Medicine Inpatient Medical Services/[facility] Speech Language Pathology Facility/Department: [facility] 2E TELEMETRY Dysphagia Treatment Note NAME: Ubaldo Arango : 1950 Allergies: No Known Allergies Room air Current Diet Level: Minced and moist with mildly thick liquids. Compensatory Techniques [x]Small bolus Assists when in small medicine cup to control volume. [x]No straws []Liquids by teaspoon only [x]External pacing [x]Position patient upright [x]Watch for swallows between bites. Pain:no indication of same. Pt calling out and turning head away to touch. S: Pt was awake, holding sippy cup. O: Assess po tolerance and provide education to staff regarding swallowing function and precautions. A: Pt agreeable to eggs only. Mild oral residuals, slow rate to allow reswallow and or liquid chaser. Continue baseline and intermittent cough with large drinks of liquid. Pt with suck swallow and controlled valve from 'sippy' cup. Pt was responding to cues to take smaller drinks. "Wa" Asking for water but appear to prefer coffee with cream. Only accepted 1 bite of yogurt and 1 bite of oatmeal. Turning her head to her milk and [place] juice. [] Goal met [x] Progressing as expected, needs assist [] Progressing slower than expected [] Medical status inhibits participation [] Goals not addressed this session [] Goals revised this session [] Unable to show any progress towards functional goals [] Progress towards functional goal is gradual / fair Routine Education: Results and recommendations from this session were discussed with the patient / RN: diet recommendations (Minced and moist), swallowing strategies/compensatory techniques (see above). Discharge Education: Provided education for the next level of care including continued diet modification and swallowing strategies (see above). Pt should continue with assist with meals. P: Con't POC. ALEJANDRO Carcamo M.A.CCC/PLANT CONTROL OPERATOR Time session ended: 853 Total session minutes: 37 Patients brother said patient likes mac and cheese and mashed potatoes. Order Mac and cheese for dinner. First meal patient was willing to eat. Sent perfect serve to Regarding her diet. Images from the original note were not included. Hospitalist Progress Note 04/15/2022 9:59 AM Subjective: Admit Date: 04/10/2022 PCP: Wale Cadena MD Interval History: admitted for sepsis. E coli UTI and bacteremia. Today: Non verbal, but alert and awake and able to follow simple commands Afebrile Drinking from sippy cup when seen. ADULT DIET; Dysphagia - Minced and Moist; Low Sodium (2 gm); Mildly Thick (Dows) ADULT ORAL NUTRITION SUPPLEMENT; Lunch, Dinner; Frozen Oral Supplement I/O last 3 completed shifts: In: 240 [P.O.:240] Out: - No data found. Medications: sodium chloride ceFAZolin 2,000 mg IntraVENous Q8H sodium chloride flush 5-40 mL IntraVENous 2 times per day enoxaparin 40 mg SubCUTAneous Daily divalproex 250 mg Oral TID ondansetron 4 mg IntraVENous Once QUEtiapine 50 mg Oral BID metoprolol 100 mg Oral Daily metoclopramide 10 mg Oral BID levothyroxine 100 mcg Oral Daily ethosuximide 600 mg Oral BID Recent Labs 04/14/22 0249 WBC 9.8 HGB 10.8* PLT 288 Recent Labs 04/14/22 0249 04/15/22 0422 NA 146* 142 K 3.8 3.8 CL 117* 111* CO2 24 28 BUN 20 16 CREATININE 0.67 0.69 GLUCOSE 98 105* No results for input(s): AST, ALT, ALB, BILITOT, ALKPHOS in the last 72 hours. No results found for: TRIG, HDL, LDLCALC, CHOL No results found for: PHART, PO2ART, [id number] No results for input(s): INR in the last 72 hours. No results for input(s): CKTOTAL, CKMB, TROPONINI in the last 72 hours. No results for input(s): DDIMER in the last 72 hours. No components found for: HGBA1C No results found for: TSH Urine Culture: Results for orders placed or performed during the hospital encounter of 04/10/22 Culture, Urine Specimen: Urine (Cath) Result Value Ref Range Urine Culture, Routine Normal urogenital enriqueta present. (A) Urine Culture, Routine Escherichia coli (A) Urine Culture, Routine 50,000-90,000 CFU/ml Susceptibility Escherichia coli - BACTERIAL SUSCEPTIBILITY PANEL BY GABINO ampicillin <=2 Sensitive ug/mL ceFAZolin <=4 Sensitive ug/mL cefTRIAXone <=1 Sensitive ug/mL cefepime <=1 Sensitive ug/mL aztreonam <=1 Sensitive ug/mL amoxicillin-clavulanate <=2 Sensitive ug/mL ampicillin-sulbactam <=2 Sensitive ug/mL piperacillin-tazobactam <=4 Sensitive ug/mL meropenem <=0.25 Sensitive ug/mL ciprofloxacin <=0.25 Sensitive ug/mL trimethoprim-sulfamethoxazole <=20 Sensitive ug/mL nitrofurantoin <=16 Sensitive ug/mL gentamicin <=1 Sensitive ug/mL amikacin <=2 Sensitive ug/mL Objective: Vitals: BP (!) 150/69 Pulse 62 Temp 97.6 F (36.4 C) (Temporal) Resp 16 Ht 5' 2" (1.575 m) Wt 167 lb 3.2 oz (75.8 kg) SpO2 93% BMI 30.58 kg/m Pulse Ox: SpO2 Av.8 % Min: 93 % Max: 95 % Supplemental O2: O2 Flow Rate (L/min): 2 L/min General appearance: alert , follows command , did not answer questions for me Lungs: b/l equal air entry, some wheezing Heart: s1,s2,mo Abdomen: soft, NT, BS+ Extremities: trace edema Neurologic: No overt lateralizing signs noted. Assessment E coli bacteremia - positive , 04/10 - repeat blood culture -04/12- staph epi/hominis - 1/2 - likely contaminant. No E coli - antibiotics deescalated to cefazolin- anticipate 2 week of treatment- likley oral on discharge. - white count normalizing and clinically improving Sepsis due to above Pneumonia - bandlike opacity right mid lung on CXR, concern for aspiration E coli UTI Acute respiratory failure Lactic acidosis - improved. Possible breakthrough seizure Dysphagia LA- improved Hypothyroidism Hypertension Obesity Leucocytosis - improved Mild hypernatremia - improved. - inadequate free fluid intake Diagnosis Date Anoxic brain damage (HCC) Aphasia Aphasia Constipation Convulsions (HCC) Dementia (HCC) Dementia (HCC) Dysphagia Dysphagia Gastroesophageal reflux Hearing loss HTN (hypertension) Hypothyroidism PVD (peripheral vascular disease) (HCC) Schizoaffective disorder (HCC) de Schizoaffective disorder (HCC) Smoker Plan On cefazolin per ID Is going back to the same place she came from, placement ready. Could be discharged after discharge antibiotics recommendation from ID. -am labs -increase activity Advance Directive: Limited Discharge planning: TBD Moshe Castaneda MD, MD Rounding Hospitalist Images from the original note were not included. [facility] - Infectious Diseases Attending Progress Note Subjective: Cross-covering, chart reviewed. No acte events, afebrile, but nonverbal, and unable to get reliable ROS. Nodded when asked if she was feeling better. Objective: Vitals: Patient Vitals for the past 24 hrs: BP Temp Temp src Pulse Resp SpO2 Height 04/14/22 1143 (!) 127/91 98.3 F (36.8 C) Temporal 64 18 94 % -- 04/14/22 1004 (!) 169/77 -- -- 71 -- -- -- 04/14/22 0855 (!) 169/77 (!) 96.7 F (35.9 C) Temporal 71 -- 93 % -- 04/14/22 0245 121/67 97.5 F (36.4 C) Temporal 77 20 91 % -- 04/13/22 2345 126/80 97 F (36.1 C) Temporal 68 18 95 % -- 04/13/22 1411 -- -- -- -- -- -- 5' 2" (1.575 m) Physical Exam Vitals reviewed. Constitutional: Appearance: She is ill-appearing (chronically, nonverbal, but unlabored). Cardiovascular: Rate and Rhythm: Normal rate and regular rhythm. Pulses: Normal pulses. Heart sounds: Normal heart sounds. Pulmonary: Effort: Pulmonary effort is normal. No respiratory distress. Breath sounds: Normal breath sounds. Abdominal: General: There is no distension. Palpations: Abdomen is soft. Tenderness: There is no abdominal tenderness. Neurological: General: No focal deficit present. Mental Status: She is alert. Psychiatric: Comments: unable to assess Labs: Component Value Date/Time NA 146 (H) 04/14/2022248 K 3.8 04/14/2022248 CL 117 (H) 04/14/2022248 CO2 24 04/14/2022248 BUN 20 04/14/2022248 CREATININE 0.67 04/14/2022248 GLUCOSE 98 04/14/2022248 CALCIUM 8.1 (L) 04/14/2022248 PROT 7.3 04/10/20222058 LABALBU 3.6 04/10/20222058 BILITOT 0.3 04/10/20222058 ALKPHOS 64 04/10/20222058 AST 31 04/10/20222058 ALT 15 04/10/20222058 PROCAL 0.76 (H) 04/12/2022 0330 PROCAL 1.07 (A) 12/01/2020 0354 PROCAL 4.62 (A) 11/29/2020 0547 Component Value Date/Time WBC 9.8 04/14/2022248 HGB 10.8 (L) 04/14/2022248 HCT 32.2 (L) 04/14/2022248 PLT 288 04/14/2022248 GRANULOCYTES 78.9 04/12/2022329 LYMPHOPCT 8.9 (L) 04/12/2022 033 MONOPCT 6 04/14/2022248 LABEOS 1 04/14/2022248 BASOPCT 0 04/14/2022248 NEUTROABS 8.1 04/14/2022248 Micro: 04/10 BC: E [id number] Urine cx: E coli Urinary antigens: neg RVP: neg 04/12 BC: 1 set CONS, possible contaminant Lines: PIV Radiography/Echo/Other: reviewed CXR: IMPRESSION: Bandlike opacity overlying the mid right lung, concerning for pneumonia. MBS: abnormal Antimicrobials, Start/End Dates: Meropenem Vancomycin dc'd Impression: Severe sepsis due to E coli bacteremia, probable urinary source- on IV antibiotic. F/u BC negative so far for E coli. ?significance of CONS. Leukocytosis- normalizing LA- resolved Anoxic brain injury with seizure d/o Dysphagia- with abnormal MBS, may also explain RML infiltrate on CXR. Overall HD stable. Plan: De-escalate to Cefazolin, duration anticipated up to 2 weeks. May be able to switch to po course if further improvement. Images from the original note were not included. Hospitalist Progress Note 04/14/2022 12:29 PM Subjective: Admit Date: 04/10/2022 PCP: Wale Cadena MD Interval History: admitted for sepsis Non verbal Afebrile Follows command ADULT DIET; Dysphagia - Minced and Moist; Low Sodium (2 gm); Mildly Thick (Dows) ADULT ORAL NUTRITION SUPPLEMENT; Lunch, Dinner; Frozen Oral Supplement I/O last 3 completed shifts: In: 240 [P.O.:240] Out: 4 [Urine:2; Stool:2] Patient Vitals for the past 96 hrs (Last 3 readings): Weight 04/10/22 2141 167 lb 3.2 oz (75.8 kg) Medications: sodium chloride dextrose 5 % and 0.9 % NaCl 75 mL/hr at 04/11/22 1436 ceFAZolin 2,000 mg IntraVENous Q8H sodium chloride flush 5-40 mL IntraVENous 2 times per day enoxaparin 40 mg SubCUTAneous Daily divalproex 250 mg Oral TID ondansetron 4 mg IntraVENous Once QUEtiapine 50 mg Oral BID metoprolol 100 mg Oral Daily metoclopramide 10 mg Oral BID levothyroxine 100 mcg Oral Daily ethosuximide 600 mg Oral BID Recent Labs 04/12/22 0330 04/14/22 0249 WBC 14.3* 9.8 HGB 10.9* 10.8* PLT 174 288 Recent Labs 04/12/22 0330 04/14/22 0249 NA 140 146* K 3.6 3.8 CL 111* 117* CO2 22 24 BUN 28* 20 CREATININE 1.09 0.67 GLUCOSE 112* 98 No results for input(s): AST, ALT, ALB, BILITOT, ALKPHOS in the last 72 hours. No results found for: TRIG, HDL, LDLCALC, CHOL No results found for: PHART, PO2ART, VMH3OLH No results for input(s): INR in the last 72 hours. No results for input(s): CKTOTAL, CKMB, TROPONINI in the last 72 hours. No results for input(s): DDIMER in the last 72 hours. No components found for: HGBA1C No results found for: TSH Urine Culture: Results for orders placed or performed during the hospital encounter of 04/10/22 Culture, Urine Specimen: Urine (Cath) Result Value Ref Range Urine Culture, Routine Normal urogenital enriqueta present. (A) Urine Culture, Routine Escherichia coli (A) Urine Culture, Routine 50,000-90,000 CFU/ml Susceptibility Escherichia coli - BACTERIAL SUSCEPTIBILITY PANEL BY GABINO ampicillin <=2 Sensitive ug/mL ceFAZolin <=4 Sensitive ug/mL cefTRIAXone <=1 Sensitive ug/mL cefepime <=1 Sensitive ug/mL aztreonam <=1 Sensitive ug/mL amoxicillin-clavulanate <=2 Sensitive ug/mL ampicillin-sulbactam <=2 Sensitive ug/mL piperacillin-tazobactam <=4 Sensitive ug/mL meropenem <=0.25 Sensitive ug/mL ciprofloxacin <=0.25 Sensitive ug/mL trimethoprim-sulfamethoxazole <=20 Sensitive ug/mL nitrofurantoin <=16 Sensitive ug/mL gentamicin <=1 Sensitive ug/mL amikacin <=2 Sensitive ug/mL Objective: Vitals: BP (!) 127/91 Pulse 64 Temp 98.3 F (36.8 C) (Temporal) Resp 18 Ht 5' 2" (1.575 m) Wt 167 lb 3.2 oz (75.8 kg) SpO2 94% BMI 30.58 kg/m Pulse Ox: SpO2 Av.3 % Min: 91 % Max: 95 % Supplemental O2: O2 Flow Rate (L/min): 2 L/min General appearance: alert , follows command , did not answer questions for me Lungs: b/l equal air entry, some wheezing Heart: s1,s2,mo Abdomen: soft, NT, BS+ Extremities: trace edema Neurologic: No obvious focal neurologic deficits. Assessment E coli bacteremia - positive BC, 04/10 - repeat blood culture -04/12- stap epi- 1/2 - likely contaminant. No E coli Sepsis due to above Pneumonia - bandlike opacity right mid lung on CXR, concern for aspiration E coli UTI Acute respiratory failure Lactic acidosis - improved. Possible breakthrough seizure Dysphagia LA- improved Hypothyroidism Hypertension Obesity Leucocytosis - improved Mild hypernatremia - inadequate free fluid intake Diagnosis Date Anoxic brain damage (HCC) Aphasia Aphasia Constipation Convulsions (HCC) Dementia (HCC) Dementia (HCC) Dysphagia Dysphagia Gastroesophageal reflux Hearing loss HTN (hypertension) Hypothyroidism PVD (peripheral vascular disease) (HCC) Schizoaffective disorder (HCC) de Schizoaffective disorder (HCC) Smoker Plan On cefazolin per ID C/w respiratory toilet ing DC iv fluid Labs in am. -am labs -increase activity Advance Directive: Limited Discharge planning: TBD Moshe Castaneda MD, MD Rounding Hospitalist Speech Language Pathology Facility/Department: [facility] TE[facility] Daily Treatment Note NAME: Ubaldo Arango : 1950 Allergies: No Known Allergies O2 Device: Nasal cannula; needed replaced during session. Pt will take off at random times. Current Diet Level: Minced and moist diet with mildly thick liquids. Compensatory Techniques [x]Small bolus Assists when in small medicine cup to control volume. [x]No straws []Liquids by teaspoon only [x]External pacing []Position patient upright [x]Watch for swallows between bites. Pain:no indication of same. S: Pt is alert and calling out. Gestures nonverbally with head nod/shake or thumbs up or pointing to communicate needs and response to questions. O: Assess po tolerance and provide education to staff re: swallowing function. A: Pt accepted spoon feeding for eggs and oatmeal with some encouragement from PLANT CONTROL OPERATOR and RN. She asked for more coffee. Provided mildly thick coffee with creamer via single cup drinks from sippy (self-administered). Pt with baseline dry cough/clear. Non productive expectoration. [] Goal met [] Progressing as expected [] Progressing slower than expected [] Medical status inhibits participation [] Goals not addressed this session [] Goals revised this session [] Unable to show any progress towards functional goals [x] Progress towards functional goal is gradual / fair Routine Education: Results and recommendations from this session were discussed with the RN: diet recommendations (minced and moist), swallowing strategies/compensatory techniques (see above). Patient shows limited level of comprehension, she does answer yes/no questions with head nod or shake. Occasional intelligible words. P: Continue POC. Education to staff and assess tolerance at bedside with recommended diet. ALEJANDRO Wasserman Time session ended: 10:30 Total session minutes: 40 Comprehensive Nutrition Assessment Type and Reason for Visit: Initial Nutrition Recommendations/Plan: Current order 2 gm low sodium, minced and moist, mildly thickened liquids. Suggest removal of 2 gm low sodium if intakes consistently poor. Initiate Magic Cup BID. May trial pro-stat mixed with mildly thickened lemon water if pt dislikes magic cup. Magic cup provides 290 kcals, 9 g protein per serving. Monitor %PO intakes, weight trends, labs, overall nutritional status. Malnutrition Assessment: Malnutrition Status: At risk for malnutrition (Comment) (intakes appear poor currently; altered textures; note of dementia) (04/13/22 1420) Context: Chronic Illness Findings of the 6 clinical characteristics of malnutrition: Energy Intake: Unable to assess Weight Loss: (10% in almost 1.5 years- possible weight loss occurred more recently than 1.5 years but unable to assess.) Body Fat Loss: Unable to assess Muscle Mass Loss: Unable to assess Fluid Accumulation: Mild Generalized Post Hole Digging Machine Operator Strength: Not Performed Nutrition Assessment: Pt admitted from assisted for evaluation of fever and reports of intermittent nausea/vomiting 2 days, and possible seizure. Pt with hx of MRDD and noted as non-verbal, limited hx obtained. Pt able to answer yes/no to questions. Noted previous admission earlier this year for UTI. Pt is being treated for septicemia, hypoxia, acute cystitis without hematuria, and PNA of R middle lobe due to infectious organism. Pt is currently on minced and moist diet with mildly thickened liquids. PLANT CONTROL OPERATOR is following and working with pt. Intakes appear poor per flowsheets. Unable to assess overall intakes. Will trial Magic Cup. Per EMR, weights are trending down. Difficult to assess timeline of actual weight loss but overall loss of 9.7% from last known weight of 185# in November,. Nutrition Related Findings: +BS; trace BLE; assist Wound Type: None Current Nutrition Intake & Therapies: Average Meal Intake: 1-25% Average Supplements Intake: None Ordered ADULT DIET; Dysphagia - Minced and Moist; Low Sodium (2 gm); Mildly Thick (Dows) Anthropometric Measures: Height: 5' 2" (157.5 cm) Gary Body Weight (IBW): 110 lbs (50 kg) Current Body Weight: 167 lb (75.8 kg), 151.8 % IBW. Current BMI (kg/m2): 30.5 Usual Body Weight: 185 lb (83.9 kg) % Weight Change (Calculated): -9.7 BMI Categories: Obese Class 1 (BMI 30.0-34.9) Estimated Daily Nutrient Needs: Energy Requirements Based On: Kcal/kg Energy (kcal/day): 9856-8876 Weight Used for Protein Requirements: Gary Protein (g/day): 55-65 Method Used for Fluid Requirements: 1 ml/kcal Fluid (ml/day): Nutrition Diagnosis: Predicted inadequate energy intake related to (? unknown/ suspect multifactorial) as evidenced by intake 0-25%, weight loss Nutrition Interventions: Food and/or Nutrient Delivery: Continue Current Diet, Start Oral Nutrition Supplement Nutrition Education/Counseling: No recommendation at this time Coordination of Nutrition Care: Continue to monitor while inpatient, Feeding Assistance/Environment Change, Speech Therapy Goals: Goals: PO intake 50% or greater, by next RD assessment Nutrition Monitoring and Evaluation: Food/Nutrient Intake Outcomes: Food and Nutrient Intake, Supplement Intake Physical Signs/Symptoms Outcomes: Biochemical Data, Chewing or Swallowing, GI Status, Fluid Status or Edema, Nutrition Focused Physical Findings, Skin, Weight, Meal Time Behavior Discharge Planning: Too soon to determine Sherrie He [address], [place] Contact: [phone] Images from the original note were not included. Hospitalist Progress Note 04/13/[id number]: Please reach me on [employer] patient care issues. [phone]: Please page IMS night Hospitalist for any issues. Subjective: Admit Date: 04/10/2022 PCP: Wale Cadena MD Room#: 249/2492 Interval History: No fever spikes yesterday Appears more comfortable No acute issues overnt, pt unable to respond to questions. ROS unobtainable from pt d/t cognitive status Smiling/waving ADULT DIET; Dysphagia - Minced and Moist; Low Sodium (2 gm); Mildly Thick (Dows) Patient Vitals for the past 96 hrs (Last 3 readings): Weight 04/10/22 2141 167 lb 3.2 oz (75.8 kg) 24HR INTAKE/OUTPUT: Intake/Output Summary (Last 24 hours) at 04/13/2022 1422 Last data filed at 04/13/2022 0938 Gross per 24 hour Intake 340 ml Output 2 ml Net 338 ml Past Medical History: Diagnosis Date Anoxic brain damage (HCC) Aphasia Aphasia Constipation Convulsions (HCC) Dementia (HCC) Dementia (HCC) Dysphagia Dysphagia Gastroesophageal reflux Hearing loss HTN (hypertension) Hypothyroidism PVD (peripheral vascular disease) (HCC) Schizoaffective disorder (HCC) de Schizoaffective disorder (HCC) Smoker LABS: CBC: Recent Labs 04/10/22205804/11/22 1208 04/12/22 0330 WBC 20.9* 18.2* 14.3* RBC 4.01 3.68* 3.65* HGB 12.1 11.2* 10.9* HCT 36.7 33.7* 33.4* MCV 91.6 91.5 91.6 RDW 15.1* 15.1* 15.0* PLT 210 170 174 BMP: Recent Labs 04/10/22205804/11/22 1208 04/12/22 0330 NA 135 137 140 K 3.9 3.3* 3.6 CL 100 107 111* CO2 27 23 22 BUN 35* 29* 28* CREATININE 1.40* 1.34* 1.09 GLUCOSE 134* 135* 112* CALCIUM 8.7 7.7* 7.9* ANIONGAP 8 6 7 LIVER PROFILE: Recent Labs 04/10/222058 AST 31 ALT 15 BILITOT 0.3 ALKPHOS 64 LABALBU 3.6 PROT 7.3 PT/INR: No results for input(s): PROTIME, INR in the last 72 hours. CARDIAC ENZYMES: Recent Labs 04/10/22205804/11/22 120 TROPONINI 0.046* 0.027 Procalcitonin: Lab Results Component Value Date/Time PROCAL 0.76 04/12/2022 03:30 AM COVID-19 PCR: Recent Labs 04/10/222118 COVID19 NEGATIVE: No targets were detected by the [employer] Upper Respiratory Pathogens PCR Panel. _ Expected Result: Not Detected The [employer] Upper Respiratory Pathogens PCR Panel can detect the following targets: SARS-CoV-2, Adenovirus, Coronavirus 229E, Coronavirus HKU1, Coronavirus NL63, Coronavirus OC43, Human Metapneumovirus, Human Rhinovirus/Enterovirus, Influenza A, Influenza B, Parainfluenza Virus 1, Parainfluenza Virus 2, Parainfluenza Virus 3, Parainfluenza Virus 4, Respiratory Syncytial Virus, Bordetella pertussis, Bordetella parapertussis, Chlamydia pneumoniae, Mycoplasma pneumoniae. Method: Real-time PCR. Objective: Vitals: BP 128/75 Pulse 70 Temp 96.9 F (36.1 C) (Temporal) Resp 20 Ht 5' 2" (1.575 m) Wt 167 lb 3.2 oz (75.8 kg) SpO2 96% BMI 30.58 kg/m Pulse Ox: SpO2 Av.8 % Min: 92 % Max: 96 % Supplemental O2: O2 Flow Rate (L/min): 2 L/min General appearance: No apparent distress, Smiling/waving Neck: Supple, with full range of motion. No jugular venous distention. Trachea midline. No lymphadenopathy. Respiratory: shallow respirations. Few rhonchia Cardiovascular: Regular rate and rhythm with normal S1/S2 without murmurs, rubs or gallops. Abdomen: Soft, non-tender, non-distended with normal bowel sounds. No rebound or guarding. Musculoskeletal: No clubbing, cyanosis. Full range of motion without deformity. Trace LE edema Skin: Skin color, texture, turgor normal. No rashes or lesions. Neurologic: unable to assess Medications: sodium chloride dextrose 5 % and 0.9 % NaCl 75 mL/hr at 04/11/22 1436 sodium chloride flush 5-40 mL IntraVENous 2 times per day enoxaparin 40 mg SubCUTAneous Daily meropenem 1,000 mg IntraVENous Q8H divalproex 250 mg Oral TID ondansetron 4 mg IntraVENous Once QUEtiapine 50 mg Oral BID metoprolol 100 mg Oral Daily metoclopramide 10 mg Oral BID levothyroxine 100 mcg Oral Daily ethosuximide 600 mg Oral BID Assessment Concern for severe sepsis due to PNA/UTI (covering gram neg organisms/MRSA + prev Ecoli UTI w/ESBL): +GN bacteremia; f/u urine cultures (growing E coli). PCT 0.76, sputum culture ordered; f/u Ucx. ID consulted. Gram negative bacteremia - repeat blood cultures ordered 04/12, growing staph epi, likely contaminant. Acute resp insufficiency: continue O2 2L NC for now; wean per protocol. Albuterol nebs PRN Lactic acidosis d/t above: improved. Continue IVF Mild troponin leak, likely demand ischemia d/t above: repeat improved. Continue telemetry. Possible breakthrough seizures after missed meds: Seizure precautions ordered. Continue Ethosuximide, Valproic Acid. *Noted that carbapenems may lower seizure threshold - benefit outweighs risk at this time. LA, probable ATN, improved. Continue IVF. Renally dose medications as indicated. Nausea/vomiting: improved. Diet as jhonathan Hypokalemia: replacement ordered; improved Dysphagia: ST following. Adjusted diet. Aspiration precautions. Previous anoxic brain injury, unspecified dementia, schizoaffective disorder: continue Quetiapine Hypothyroidism: continue Levothyroxine HTN; continue BB Obesity, Body mass index is 30.58 kg/m . Plan -am labs, replace lytes prn -increase activity -DVT prophylaxis: [x] Lovenox [] Heparin [] SCDs [x] Encourage ambulation [] Already on Anticoagulation Advance Directive: Limited Discharge planning: pending repeat blood culture results Bonnie Masterson MD Division of Hospitalist Medicine Inpatient Medical Services/[facility] Images from the original note were not included. Palliative Progress Note Chief Complaint: Ubaldo Arango is a 71 y.o. female with chief complaint of fevers with seizure on 04-08. Palliative care is actively following this patient. Assessment/Plan Assessment/Plan Goals of care Pt is not able to make her own decisions. Spoke with [place] Probate court who has emailed a copy of guardianship(person only not financial) naming Cleveland Arango [phone]( brother) as 1st and Zachary Arango [phone]( sister in law) as [address]nd[address] Will place this in the chart. Pt resides at [facility], plans for her to return when medially stable. Discussed her full code status and what this entails. Also discussed DNRCC and DNRCCA. Guardian asked that I first call facility [facility] to verify if she was a full code there first. Zachary stated she would want her to be DNRCCA/DNI if she were a full code there. Pt will be limited code here for clarity to other providers and DNRCCA/DNI on paper for dc back to facility Goals are for continued medical care and to return back to the facility when medically stable. Septicemia + blood culture gram negative bacillus Meropenum, vancomycin Dysphagia Speech following Schizoaffective disorder Quetiapine 50 mg BID Seizures Ethosuximide 600 mg BID Palliative Care Encounter Full will continue to follow for ongoing monitoring of progression of Fever will continue to evaluate test results related to septicemia , medication effectiveness for Anxiety and Agitation Ongoing counseling of patient and family regarding diagnoses of Dementia, Determining prognosis in serious illness of Dementia COVID-19 Risk Screening Tool: Has patient been tested for COVID-19 this admission? yes- date 04-10-22 Is the patient admitted from a nursing facility? yes Has the patient been in close contact with a COVID-19 positive patient? no Did patient recently receive COVID-19 vaccine? no COVID-19 ROS: Fever yes Cough no Shortness of Breath no Myalgia no Loss of Taste/Smell no Diarrhea/GI Symptoms no If yes, to any of the above questions and patient has not had a negative test this admission consider COVID-19 testing. Active Hospital Problems Diagnosis Date Noted Severe sepsis (HCC) [A41.9, R65.20] 04/10/2022 Priority: Medium Time/Communication Greater than 51% of time spent, total 25 minutes in counseling and coordination of care at the bedside regarding Goals of Care Discharge planning: to be determined Patient meets criteria for general inpatient hospice care including the following: N/A- Palliative Care Patient Referrals to: none today Discussed patient and the plan of care with the other interdisciplinary team (IDT) members of Palliative Team, and with Patient and Floor Nurse I have discussed the patient's case and plan of care with my collaborating physician Dr. Vang Subjective: Hospital days prior to consult: 1 Subjective/Events 71 yr old female from [facility] presented to the ER via EMS for fevers with a seizure 2 days prior. Appear pt may have missed medications likely contributing to the seizure. Since admission pt BC have returned + for gram negative bacillus. ID now consulted. XRC showed suspected PNA. Medical history includes anoxic brain injury, asphasia, constipation, dementia, GERD, hearing loss, HTN, hypothyroidism, PVD, schizoaffective disorder, former smoker. Palliative medicine has been consulted for goals of care, symptom management and code conversation. 9-9 Met with pt at bedside - currently working with ST. Is having some coughing with large swallows. ST trying to help her with just small sips. Pt malone snot appear to be in any pain. Palliative will not see over weekend. Please page me directly if there are any needs. Pain Assessment (If Pain Scale >0) Pt is nonverbal. Does not appear to be in any distress Goals of care:Live Longer, Improve or Maintain Function/Quality of Life, Support for Family/Caregiver, and Continue Current Management Advance Directives: full code Surrogate: Guardian Prognosis: unknown Spiritualassessment: No spiritual distress identified Bereavement and grief: Grief Issues Not Identified Past Medical History: Diagnosis Date Anoxic brain damage (HCC) Aphasia Aphasia Constipation Convulsions (HCC) Dementia (HCC) Dementia (HCC) Dysphagia Dysphagia Gastroesophageal reflux Hearing loss HTN (hypertension) Hypothyroidism PVD (peripheral vascular disease) (HCC) Schizoaffective disorder (HCC) de Schizoaffective disorder (HCC) Smoker No past surgical history on file. No family history on file. Unable to obtain family history due to pt is not able to have any meaningful conversation No Known Allergies ROS: See palliative care ROS/ESAS below; Detail ROS unable to obtain due to patient's mental status Review of Systems Family Meeting: Participants:No Family Meeting Held Today Family meeting was held to discuss: Objective: Physical Exam BP 128/75 Pulse 70 Temp 96.9 F (36.1 C) (Temporal) Resp 20 Ht 5' 2" (1.575 m) Wt 167 lb 3.2 oz (75.8 kg) SpO2 96% BMI 30.58 kg/m Physical Exam Vitals reviewed. HENT: Head: Atraumatic. Right Ear: External ear normal. Left Ear: External ear normal. Mouth/Throat: Mouth: Mucous membranes are moist. Pharynx: Oropharynx is clear. Eyes: General: Right eye: No discharge. Left eye: No discharge. Cardiovascular: Rate and Rhythm: Normal rate. Pulses: Normal pulses. Pulmonary: Effort: Pulmonary effort is normal. Abdominal: General: Bowel sounds are normal. Musculoskeletal: Cervical back: Normal range of motion. Right lower leg: Edema present. Left lower leg: Edema present. Skin: General: Skin is warm and dry. Neurological: Mental Status: She is alert. Comments: Unable to assess Psychiatric: Comments: calm Hale Symptom Assessment Score Hale Score Pain Score 0 Tiredness Score 0 Nausea Score 0 Depression Score 0 Anxiety Score 2 Drowsiness Score 0 Anorexia Score (0= eating well, 10= not eating) 2 Wellbeing Score (10= worst sense of well-being) 2 Constipation 0 Dyspnea Score (0= no shortness of breath) 0 FLACC Scale (For Pain Assessment of the Non-Verbal Patient) Face: 1- occasionalgrimace or frown Legs: 1- uneasy, restless, tense Activity: 0-lyingquietly, moves easily Cry: 1- occasional moan or whimper Consolability:1-reassured by touch, hug, talk, distractible Total Score: 0 Assessed by: provider. All other systems were reviewed and are negative. CurrentMedications: Inpatient medications reviewed: yes Home Medications reviewed: yes OARRS Reviewed:No Report Available 24 Hour PRN Meds: reviewed Results/Verification of Data Review Objective data reviewed: labs, images, records, medication use, vitals, and chart Data in Support of Terminal Illness: Is patient hospice appropriate? no Facility/Department: [facility] TELEMETRY Dysphagia Treatment Note NAME: Ubaldo Arango : 1950 Allergies: No Known Allergies O2 Device: Nasal cannula; needed replaced during session. Pt will take off at random times. Current Diet Level: Minced and moist diet with mildly thick liquids. Compensatory Techniques [x]Small bolus Assists when in small medicine cup to control volume. [x]No straws []Liquids by teaspoon only [x]External pacing []Position patient upright [x]Watch for swallows between bites. Pain:no indication of same. S: Pt is alert and calling out. Verbal speech with some approximation. O: Assess po tolerance and provide education to staff re: swallowing function. A: Pt turned her head to yogurt and shook head no for eggs. She asked for po - water. Provided mildly thick water via single cup drinks. Offered sippy cup-pt deferred. Pt with baseline cough, congested. Unsuccessful with having pt expectorate after coughing up. Throat clear/cough 2x after approximately 240ml. Single small drinks from small medicine cup. D/W RN and CLINICAL LAB SCIENTIST Palliative Care. [] Goal met [] Progressing as expected [] Progressing slower than expected [] Medical status inhibits participation [] Goals not addressed this session [] Goals revised this session [] Unable to show any progress towards functional goals [x] Progress towards functional goal is gradual / fair Routine Education: Results and recommendations from this session were discussed with the patient / family / RN: diet recommendations (minced and moist), swallowing strategies/compensatory techniques (see above). Patient shows limited level of comprehension, she does answer yes/no questions with head nod or shake. Occasional intelligible words. P: Continue POC. Education to staff and assess tolerance at bedside with recommended diet. ALEJANDRO Carcamo M.A.CCC/PLANT CONTROL OPERATOR Time session ended: 938 Total session minutes: 30 Speech Language Pathology Facility/Department: [facility] 2E TELEMETRY Dysphagia Treatment Note NAME: Ubaldo Arango : 1950 Allergies: No Known Allergies O2 Device: Nasal cannula Current Diet Level: Minced and moist with mildly thick liquids Compensatory Techniques [x]Slow rate [x]Most upright position [x]Small bolus Pain: Pt does not appear in pain. S: Pt alert and finishing breakfast tray. Nurse reports coughing with thickened orange juice. No trouble with scrambled eggs. Pt not cooperative at beginning of the session, but became compliant with assist from nursing tech who knew her from her facility. O: Pt will consume mechanical soft/minced and moist diet as tolerated without overt dysphagia. A: Spoke with nurse practitioner prior to session and provided education. Recommened to provide liquids in medication cup and control for small bolus. Plan to obtain sippy cup to help assist with self feed with control of slow rate and small bolus. Pt required assist to ensure small bolus and slow rate. Trialed mildly thickened pop (pop is a known motivator) until patient refused. Pt took single drinks, no overt deficits. NOTE: pt demonstrated cough response to aspiration during MBS. [] Goal met [x] Progressing as expected [] Progressing slower than expected [] Medical status inhibits participation [] Goals not addressed this session [] Goals revised this session [] Unable to show any progress towards functional goals [] Progress towards functional goal is gradual / fair P: Obtain sippy cup for more controlled intake of mildly thick liquids. Return to further assess tolerance of current diet. Patient Education: Results and recommendations from this evaluation / session were discussed including: diet recommendations (mildly thick liquids in medicine cups or sippy cup) and swallow strategies (see above). The patient is unable to participate with the education process. Spoke with the nurse practitioner. The nurse practitioner agrees with the proposed plan of care. No family is present at the bedside. The patient demonstrates poor level of comprehension. Total Minutes: 17 minutes Time Session Ended: 10:47 am Mary ALLEN Student A mask and gloves were worn throughout this session. Images from the original note were not included. Hospitalist Progress Note 04/12/[id number]: Please reach me on [employer] Serve patient care issues. [phone]: Please page IMS night Hospitalist for any issues. Subjective: Admit Date: 04/10/2022 PCP: No primary care provider on file. Room#: 249/2492 Interval History: Tmax 102.4 yesterday No more high temps today Leukocytosis improving Appears more comfortable Spoke with ST again today - pt usually drinks from sippy cup at facility; will try to obtain ROS unobtainable from pt d/t cognitive status Smiling/waving ADULT DIET; Dysphagia - Minced and Moist; Low Sodium (2 gm); Mildly Thick (Dows) Patient Vitals for the past 96 hrs (Last 3 readings): Weight 04/10/22 2141 167 lb 3.2 oz (75.8 kg) 24HR INTAKE/OUTPUT: Intake/Output Summary (Last 24 hours) at 04/12/2022 0931 Last data filed at 04/11/2022 1622 Gross per 24 hour Intake 349.9 ml Output -- Net 349.9 ml Past Medical History: Diagnosis Date Anoxic brain damage (HCC) Aphasia Aphasia Constipation Convulsions (HCC) Dementia (HCC) Dementia (HCC) Dysphagia Dysphagia Gastroesophageal reflux Hearing loss HTN (hypertension) Hypothyroidism PVD (peripheral vascular disease) (HCC) Schizoaffective disorder (HCC) de Schizoaffective disorder (HCC) Smoker LABS: CBC: Recent Labs 04/10/22205804/11/228 04/12/22 0330 WBC 20.9* 18.2* 14.3* RBC 4.01 3.68* 3.65* HGB 12.1 11.2* 10.9* HCT 36.7 33.7* 33.4* MCV 91.6 91.5 91.6 RDW 15.1* 15.1* 15.0* PLT 210 170 174 BMP: Recent Labs 04/10/22205804/11/22 1208 04/12/22 0330 NA 135 137 140 K 3.9 3.3* 3.6 CL 100 107 111* CO2 27 23 22 BUN 35* 29* 28* CREATININE 1.40* 1.34* 1.09 GLUCOSE 134* 135* 112* CALCIUM 8.7 7.7* 7.9* ANIONGAP 8 6 7 LIVER PROFILE: Recent Labs 04/10/222058 AST 31 ALT 15 BILITOT 0.3 ALKPHOS 64 LABALBU 3.6 PROT 7.3 PT/INR: No results for input(s): PROTIME, INR in the last 72 hours. CARDIAC ENZYMES: Recent Labs 04/10/22205804/11/221207 TROPONINI 0.046* 0.027 Procalcitonin: Lab Results Component Value Date/Time PROCAL 1.07 12/01/2020 03:54 AM COVID-19 PCR: Recent Labs 04/10/222118 COVID19 NEGATIVE: No targets were detected by the [employer] Upper Respiratory Pathogens PCR Panel. _ Expected Result: Not Detected The [employer] Upper Respiratory Pathogens PCR Panel can detect the following targets: SARS-CoV-2, Adenovirus, Coronavirus 229E, Coronavirus HKU1, Coronavirus NL63, Coronavirus OC43, Human Metapneumovirus, Human Rhinovirus/Enterovirus, Influenza A, Influenza B, Parainfluenza Virus 1, Parainfluenza Virus 2, Parainfluenza Virus 3, Parainfluenza Virus 4, Respiratory Syncytial Virus, Bordetella pertussis, Bordetella parapertussis, Chlamydia pneumoniae, Mycoplasma pneumoniae. Method: Real-time PCR. Objective: Vitals: BP (!) 150/74 Pulse 72 Temp 96.9 F (36.1 C) (Temporal) Resp 20 Ht 5' 2" (1.575 m) Wt 167 lb 3.2 oz (75.8 kg) SpO2 97% BMI 30.58 kg/m Pulse Ox: SpO2 Av.2 % Min: 89 % Max: 99 % Supplemental O2: O2 Flow Rate (L/min): 2 L/min General appearance: No apparent distress, nods yes/no. Smiling/waving HEENT: Normal cephalic, atraumatic without obvious deformity. Pupils equal, round, and reactive to light. Extra ocular muscles intact. Conjunctivae/corneas clear. Neck: Supple, with full range of motion. No jugular venous distention. Trachea midline. No lymphadenopathy. Respiratory: shallow respirations. Few rhonchia Cardiovascular: Regular rate and rhythm with normal S1/S2 without murmurs, rubs or gallops. Abdomen: Soft, non-tender, non-distended with normal bowel sounds. No rebound or guarding. Musculoskeletal: No clubbing, cyanosis. Full range of motion without deformity. Trace LE edema Skin: Skin color, texture, turgor normal. No rashes or lesions. Neurologic: Neurovascularly intact without any focal sensory/motor deficits. Cranial nerves: II-XII intact, grossly non-focal. Medications: sodium chloride dextrose 5 % and 0.9 % NaCl 75 mL/hr at 04/11/22 1436 sodium chloride flush 5-40 mL IntraVENous 2 times per day enoxaparin 40 mg SubCUTAneous Daily meropenem 1,000 mg IntraVENous Q8H vancomycin 1,000 mg IntraVENous Q24H divalproex 250 mg Oral TID ondansetron 4 mg IntraVENous Once QUEtiapine 50 mg Oral BID metoprolol 100 mg Oral Daily metoclopramide 10 mg Oral BID levothyroxine 100 mcg Oral Daily ethosuximide 600 mg Oral BID Assessment Concern for severe sepsis due to PNA/UTI (covering gram neg organisms/MRSA + prev Ecoli UTI w/ESBL): +GN bacteremia; f/u urine cultures (growing E coli). PCT 0.76, sputum culture ordered; f/u Ucx. ID consulted. Gram negative bacteremia - repeat blood cultures ordered 04/12 Acute resp insufficiency: continue O2 2L NC for now; wean per protocol. Albuterol nebs PRN Lactic acidosis d/t above: improved. Continue IVF Mild troponin leak, likely demand ischemia d/t above: repeat improved. Continue telemetry. Possible breakthrough seizures after missed meds: Seizure precautions ordered. Continue Ethosuximide, Valproic Acid. *Noted that carbapenems may lower seizure threshold - benefit outweighs risk at this time. LA, probable ATN, improved. Continue IVF. Renally dose medications as indicated. Nausea/vomiting: improved. Diet as jhonathan Hypokalemia: replacement ordered; improved Dysphagia: ST following. Adjusted diet. Aspiration precautions. Previous anoxic brain injury, unspecified dementia, schizoaffective disorder: continue Quetiapine Hypothyroidism: continue Levothyroxine HTN; continue BB Obesity, Body mass index is 30.58 kg/m . Plan -am labs, replace lytes prn -increase activity -DVT prophylaxis: [x] Lovenox [] Heparin [] SCDs [x] Encourage ambulation [] Already on Anticoagulation Advance Directive: Full Code Discharge planning: TBD TYRON Johnston CNP Division of [facility] Inpatient Medical Services/[facility] Nutrition rescreen completed. Patient referred to the Dietitian for dysphagia - speech following & modified diet. Pharmacy Vancomycin Consult Follow-Up Note Current Dosin mg q24h Recent Labs 04/11/22 1208 04/12/22 0330 BUN 29* 28* Recent Labs 04/11/22 1208 04/12/22 0330 CREATININE 1.34* 1.09 Recent Labs 04/11/22 1208 04/12/22 0330 WBC 18.2* 14.3* Ht Readings from Last 1 Encounters: 04/11/22 5' 2" (1.575 m) Wt Readings from Last 1 Encounters: 04/10/22 167 lb 3.2 oz (75.8 kg) Body mass index is 30.58 kg/m . Estimated Creatinine Clearance: 44 mL/min (based on SCr of 1.09 mg/dL). Calculated AUC: 419 mg/L.hr Assessment/Plan: [employer] reviewed and updated. AUC within target range and renal function stable. Will continue current dosing and monitor renal function. Random level will be scheduled for 04/19/22 with morning labs Speech Language Pathology A Modified Barium Swallow Study (MBSS) evaluation was completed. The full Speech Pathology report is located under the "Chart Review" section of [email or web address]. Click on the "Procedure" tab to locate the complete Speech Pathologist MBSS results and recommendations titled PLANT CONTROL OPERATOR video swallow on this date. + aspiration with slightly larger cup drink with thin liquids; +cough. Recommended diet: Minced and moist diet with mildly thick liquids --Slow rate-to await swallows between bites --Single cup drinks of mildly thick (administer via small medicine cup to control) ALEJANDRO Carcamo M.A. [facility]-PLANT CONTROL OPERATOR Speech Language Pathology Facility/Department: [facility] Speech Language Pathology Clinical Bedside Swallow Evaluation NAME:Ubaldo Arango : 1950 (71 y.o.) ROOM: ADMISSION DATE: 04/10/2022 PATIENT DIAGNOSIS(ES): Severe sepsis (HCC) [A41.9, R65.20] Chief Complaint Patient presents with Seizures Fever Patient Active Problem List Diagnosis Date Noted Severe sepsis (HCC) 04/10/2022 Urinary tract infectious disease 11/27/2020 Past Medical History: Diagnosis Date Anoxic brain damage (HCC) Aphasia Aphasia Constipation Convulsions (HCC) Dementia (HCC) Dementia (HCC) Dysphagia Dysphagia Gastroesophageal reflux Hearing loss HTN (hypertension) Hypothyroidism PVD (peripheral vascular disease) (HCC) Schizoaffective disorder (HCC) de Schizoaffective disorder (HCC) Smoker No past surgical history on file. No Known Allergies DATE ONSET: 04/10/22 HPI: 71 y.o. female who presents to the emergency department for evaluation of fever. Patient centers assisted for fever. skilled nursing staff said she had a seizure 2 days ago on [place]. They state that she has had intermittent nausea and vomiting for the past 2 days. They are concerned that she had a seizure today but admitted that no one witnessed the seizure. Patient has had a fever. Patient has MRDD and cannot cooperate with history. Patient was admitted here for UTI when having similar symptoms earlier this year. At that time she was found to have a multidrug-resistant urine infection due to E. coli. Culture at that time showed the E. coli was sensitive to meropenem Date of Evaluation: 04/11/2022 Evaluating Therapist: Raquel Lamar, PLANT CONTROL OPERATOR Dysphagia Diagnosis Dysphagia Impression : Suspect fucntional oral transit and swallowing, however pt did present with cough response with progression of bites. Concern with airway compromise and complete pharyngeal clearing with progression of bedside evaluation. Pt would benefit from MBS to further assess orophrarygeal function. Improved function with small cup sips and alternating liquids after solids. Cough x3 during assessment. Recommended Diet Recommendations: Modified barium swallow study Diet Solids Recommendation: Pureed (pending MBS) Liquid Consistency Recommendation: Thin Recommended Form of Meds: PO (meds with small sips of water) Reason for Referral Ubaldo Arango was referred for a bedside swallow evaluation to assess the efficiency of her swallow function, identify signs and symptoms of aspiration, identify risk factors, and make recommendations regarding safe dietary consistencies, effective compensatory strategies, and safe eating environment. General Chart Reviewed: Yes Subjective Subjective: Pt is non-verbal, from [facility] Behavior/Cognition: Alert;Requires cueing O2 Device: Nasal cannula Communication Observation: Non-verbal Dentition: Some missing teeth Patient Positioning: Upright in bed (on stretcher/cot) Prior Dysphagia History: Pt was evaluated previous stay. 11/28/20 Only completed bedside evaluation, no overt deficits. ON minced and moist diet in hospital. Consistencies Administered: Minced and Moist;Pureed;Thin - cup Vision and Hearing Vision Vision: Within Functional Limits (appears) Hearing Hearing: Within functional limits (appears) Current Diet level Current Diet : NPO Oral Motor Oral Hygiene Comments: no formal assessment. No asymmetry observed. Pt does not follow directions. Oral/Pharyngeal Phase Oral Phase - Comment: Pt sticking tongue out slightly between her lips for oral acceptance. Good stripping of pudding off the spoon. Questionable prolonged oral transit. Trace oral residuals/coating on tongue post swallow. Trace particles after sully cracker pudding mix. Oral clearing assist by alternating drink vs. additional time for reswallow. (difficulty with identifying swallow onset, palpation limited). Liquids provided via single sips using small medicine cup. (pt's sippy cup is not available). Pharyngeal Phase: Palpation of pharyngeal swallow is limited, diffculty with detection of swallow depiste sensation of onset of swallow. May be related to neck habitus. Dysphagia Diagnosis Dysphagia Impression : Suspect fucntional oral transit and swallowing, however pt did present with cough response with progression of bites. Concern with airway compromise and complete pharyngeal clearing with progression of bedside evaluation. Pt would benefit from MBS to further assess orophrarygeal function. Improved function with small cup sips and alternating liquids after solids. Cough x3 during assessment. Recommendations Requires PLANT CONTROL OPERATOR Intervention: Yes Recommendations: Modified barium swallow study D/C Recommendations: Ongoing speech therapy is recommended during this hospitalization Diet Solids Recommendation: Pureed (pending MBS) Liquid Consistency Recommendation: Thin Recommended Form of Meds: PO (meds with small sips of water) Therapeutic Interventions: Diet tolerance monitoring;Patient/Family education Duration of Treatment: 2 weeks Frequency of Treatment: 3 visits per week Prognosis Fair Education Individuals consulted Consulted and agree with results and recommendations: Patient;RN Treatment/Goals Short-term Goals Goal 1: Pt will participate in instrumental testing for further evaluation of oropharyngeal fucntion. Goal 2: Pt will consume mechanical soft/minced and moist diet as tolerated without overt dysphagia. Safety Devices Safety Devices Safety Devices in place: Not Applicable Restraints Initially in Place: No Pain Assessment Pain Assessment: Patient does not appear in pain Pain Re-assessment Pain Reassessment: Patient does not appear in pain Therapy Time PLANT CONTROL OPERATOR Individual Minutes Time In: 1048 Time Out: 1110 Minutes: 22 Signature: Raquel Lamar MA, [facility]-PLANT CONTROL OPERATOR Speech-Language Pathologist Images from the original note were not included. Hospitalist Progress Note 04/11/[id number]: Please reach me on [employer] patient care issues. [phone]: Please page IMS night Hospitalist for any issues. Subjective: Admit Date: 04/10/2022 PCP: No primary care provider on file. Room#: Interval History: Discussed recommendations w/ATB stewardship team Spoke w/ST s/p MBS- rec mildly thickened liquids/minced and moist consistency Mildly tachypneic during eval Non-verbal - ROS unobtainable d/t pt's mentation Makes eye contact; appears afraid; smiles periodically Diet NPO Exceptions are: Ice Chips, Sips of Water with Meds, Sips of Clear Liquids Patient Vitals for the past 96 hrs (Last 3 readings): Weight 04/10/22 214 167 lb 3.2 oz (75.8 kg) 24HR INTAKE/OUTPUT: Intake/Output Summary (Last 24 hours) at 04/11/2022 0908 Last data filed at 04/11/2022 0639 Gross per 24 hour Intake 400 ml Output 150 ml Net 250 ml Past Medical History: Diagnosis Date Anoxic brain damage (HCC) Aphasia Aphasia Constipation Convulsions (HCC) Dementia (HCC) Dementia (HCC) Dysphagia Dysphagia Gastroesophageal reflux Hearing loss HTN (hypertension) Hypothyroidism PVD (peripheral vascular disease) (HCC) Schizoaffective disorder (HCC) de Schizoaffective disorder (HCC) Smoker LABS: CBC: Recent Labs 04/10/222058 WBC 20.9* RBC 4.01 HGB 12.1 HCT 36.7 MCV 91.6 RDW 15.1* PLT 210 BMP: Recent Labs 04/10/222058 NA 135 K 3.9 CL 100 CO2 27 BUN 35* CREATININE 1.40* GLUCOSE 134* CALCIUM 8.7 ANIONGAP 8 LIVER PROFILE: Recent Labs 04/10/222058 AST 31 ALT 15 BILITOT 0.3 ALKPHOS 64 LABALBU 3.6 PROT 7.3 PT/INR: No results for input(s): PROTIME, INR in the last 72 hours. CARDIAC ENZYMES: Recent Labs 04/10/222058 TROPONINI 0.046* Procalcitonin: Lab Results Component Value Date/Time PROCAL 1.07 12/01/2020 03:54 AM COVID-19 PCR: Recent Labs 04/10/222118 COVID19 NEGATIVE: No targets were detected by the [employer] Upper Respiratory Pathogens PCR Panel. _ Expected Result: Not Detected The [employer] Upper Respiratory Pathogens PCR Panel can detect the following targets: SARS-CoV-2, Adenovirus, Coronavirus 229E, Coronavirus HKU1, Coronavirus NL63, Coronavirus OC43, Human Metapneumovirus, Human Rhinovirus/Enterovirus, Influenza A, Influenza B, Parainfluenza Virus 1, Parainfluenza Virus 2, Parainfluenza Virus 3, Parainfluenza Virus 4, Respiratory Syncytial Virus, Bordetella pertussis, Bordetella parapertussis, Chlamydia pneumoniae, Mycoplasma pneumoniae. Method: Real-time PCR. Objective: Vitals: BP 104/89 Pulse 94 Temp 100.3 F (37.9 C) (Oral) Resp 15 Ht 5' 2" (1.575 m) Wt 167 lb 3.2 oz (75.8 kg) SpO2 95% BMI 30.58 kg/m Pulse Ox: SpO2 Av.4 % Min: 90 % Max: 98 % Supplemental O2: O2 Flow Rate (L/min): 2 L/min General appearance: No apparent distress HEENT: Normal cephalic, atraumatic without obvious deformity. Pupils equal, round, and reactive to light. Extra ocular muscles intact. Conjunctivae/corneas clear. Neck: Supple, with full range of motion. No jugular venous distention. Trachea midline. No lymphadenopathy. Respiratory: Mild accessory muscle use; few rhonchi Cardiovascular: Regular rate and rhythm with normal S1/S2 without murmurs, rubs or gallops. Abdomen: Soft, non-tender, non-distended with normal bowel sounds. Musculoskeletal: No clubbing, cyanosis. Trace LE edema Skin: Skin color, texture, turgor normal. No rashes or lesions. Neurologic: Awake, alert. Makes eye contact and moves all extremities purposefully; doesn't follow commands. Medications: sodium chloride dextrose 5 % and 0.9 % NaCl 125 mL/hr at 04/11/22 0253 sodium chloride flush 5-40 mL IntraVENous 2 times per day enoxaparin 40 mg SubCUTAneous Daily cefepime 2,000 mg IntraVENous Q12H linezolid 600 mg IntraVENous Q12H ondansetron 4 mg IntraVENous Once QUEtiapine 50 mg Oral BID metoprolol 100 mg Oral Daily metoclopramide 10 mg Oral BID levothyroxine 100 mcg Oral Daily ethosuximide 600 mg Oral BID Assessment Concern for severe sepsis due to PNA/UTI (covering gram neg organisms/MRSA + prev Ecoli UTI w/ESBL): f/u blood/urine cultures. Check PCT, sputum culture. Switch ATB to Merrem/Vanco for now Acute resp insufficiency: continue O2 2L NC for now; wean per protocol. Albuterol nebs PRN Lactic acidosis d/t above: improved. Continue IVF Mild troponin leak, likely demand ischemia d/t above: repeat ordered. Continue telemetry. Possible breakthrough seizures after missed meds: Seizure precautions ordered. Continue Ethosuximide, Valproic Acid. *Noted that Meropenem may lower seizure threshold - benefit outweighs risk at this time. LA, probable ATN: continue IVF. Renally dose medications as indicated. Nausea/vomiting: improved. Diet as jhonathan Hypokalemia: replacement ordered: repeat in AM. Dysphagia: ST following. Adjusted diet. Aspiration precautions Previous anoxic brain injury, unspecified dementia, schizoaffective disorder: continue Quetiapine Hypothyroidism: continue Levothyroxine HTN; continue BB Obesity, Body mass index is 30.58 kg/m . Plan -am labs, replace lytes prn -Palliative Care consult -DVT prophylaxis: [x] Lovenox [] Heparin [] SCDs [x] Encourage ambulation [] Already on Anticoagulation Advance Directive: Full Code Discharge planning: TBD TYRON Johnston CNP Division of Hospitalist Medicine Inpatient Medical Services/[facility] documented in this encounter [facility] Work Phone: 04-18-2022 Note Hospitalist Discharg e Summary Ubaldo Arango : 1950 Admit date: 04/10/2022 Discharge date: 04/18/2022 Admitting Physician: Martir Kumari MD Primary Care Physician: Wale Cadena MD Visit Status: Admission Code Status: Limited Discharge Diagnoses: Concern for severe sepsis due to PNA/UTI (covering gram neg organisms/MRSA + prev Ecoli UTI w/ESBL): +GN bacteremia; urine cultures (growing E coli). PCT 0.76, sputum culture ordered- no results. Transitioned to PO Cefdinir through 04/19. Gram negative bacteremia (E coli)- repeat blood cultures ordered 04/12- 08/06 sets staph epi (likely contaminant) Diarrhea resolved. Having formed stools Leukocytosis, improved Acute resp insufficiency: oxygen weaned off; Albuterol nebs PRN Lactic acidosis d/t above: improved. Mild troponin leak, likely demand ischemia d/t above: repeat improved. Possible breakthrough seizures after missed meds: Seizure precautions ordered; no further seizure activity during admission. Continue Ethosuximide, Valproic Acid. LA, probable ATN, improved. Renally dose medications as indicated. Nausea/vomiting: improved. Diet as jhonathan Hypokalemia: replacement ordered; improved Dysphagia: ST following. Adjusted diet- currently on thickened liquids/minced and moist consistency foods. Aspiration precautions. Previous anoxic brain injury, unspecified dementia, schizoaffective disorder: continue Quetiapine Hypothyroidism: continue Levothyroxine HTN; continue BB Obesity, Body mass index is 30.58 kg/m?. Diagnosis Date Anoxic brain damage (HCC) Aphasia Aphasia Constipation Convulsions (HCC) Dementia (HCC) Dementia (HCC) Dysphagia Dysphagia Gastroesophageal reflux Hearing loss HTN (hypertension) Hypothyroidism PVD (peripheral vascular disease) (HCC) Schizoaffective disorder (HCC) de Schizoaffective disorder (HCC) Smoker Procedures: CXR, MBS Hospital Course: See discharge diagnoses list above and medication adjustments below in med rec.The patient is discharged in improved and stable condition. Consults: PHARMACY TO DOSE VANCOMYCIN IP CONSULT TO PALLIATIVE CARE IP CONSULT TO INFECTIOUS DISEASES Discharge Instructions: Diet: ADULT DIET; Dysphagia - Minced and Moist; Low Sodium (2 gm); Mildly Thick (Dows) ADULT ORAL NUTRITION SUPPLEMENT; Lunch, Dinner; Frozen Oral Supplement Activity: as tolerated Recommended Outpatient Tests: see OPAT form Disposition: Patient discharged in stable condition to SNF. Greater than 30 minutes spent discharging the patient and coming up with patient discharge plan. Vitals: BP 135/89 Pulse 74 Temp (!) 96.7 ?F (35.9 ?C) (Temporal) Resp 18 Ht 5' 2" (1.575 m) Wt 167 lb 3.2 oz (75.8 kg) SpO2 98% BMI 30.58 kg/m? Pulse Ox: SpO2 Av % Min: 94 % Max: 98 % Supplemental O2: O2 Flow Rate (L/min): 2 L/min General appearance: No apparent distress, but intermittently agitated HEENT: Normal cephalic, atraumatic without obvious deformity. Pupils equal, round, and reactive to light. Extra ocular muscles intact. Conjunctivae/corneas clear. Neck: Supple, with full range of motion. No jugular venous distention. Trachea midline. No lymphadenopathy. Respiratory: Normal respiratory effort. Clear to auscultation Cardiovascular: Regular rate and rhythm with normal S1/S2 without murmurs, rubs or gallops. Abdomen: Soft, non-tender, non-distended with normal bowel sounds. No rebound or guarding. Musculoskeletal: No clubbing, cyanosis. Trace LE edema Skin: Skin color, texture, turgor normal. No rashes or lesions. Neurologic: Neurovascularly intact without any focal sensory/motor deficits. Cranial nerves: II-XII intact, grossly non-focal. Discharge Medications: Medication List START taking these medications albuterol (2.5 MG/3ML) 0.083% nebulizer solution Commonly known as: PROVENTIL Take 3 mLs by nebulization every 4 hours as needed for Wheezing or Shortness of Breath cefdinir 300 MG capsule Commonly known as: OMNICEF Take 1 capsule by mouth every 12 hours for 2 days CONTINUE taking these medications acetaminophen 650 MG suppository Commonly known as: TYLENOL bisacodyl 10 MG suppository Commonly known as: DULCOLAX Claritin 10 MG tablet Generic drug: loratadine divalproex [address] tablet Commonly known as: DEPAKOTE ethosuximide 250 MG/5ML solution Commonly known as: ZARONTIN famotidine 20 MG tablet Commonly known as: PEPCID furosemide 8 MG/ML oral solution Commonly known as: LASIX guaiFENesin 100 MG/5ML Soln oral solution Commonly known as: ROBITUSSIN hydrOXYzine HCl 10 MG tablet Commonly known as: ATARAX levothyroxine 100 MCG tablet Commonly known as: SYNTHROID metoclopramide 10 MG tablet Commonly known as: REGLAN metoprolol 100 MG tablet Commonly known as: LOPRESSOR QUEtiapine 50 MG extended release tablet Commonly known as: SEROQUEL XR therapeutic multivitamin-minerals tablet Where t (more content not included)... [facility] 04-17-2022 Hospital Discharg peña Foss RN - 04/17/2022 8:28 AM EDT Continuity of Care Form Patient Name: Ubaldo Arango : 1950 Admit date: 04/10/2022 Discharge date: Code Status Order: Limited Advance Directives: Admitting Physician: Martir Kumari MD PCP: Wale Cadena MD Discharging Nurse: Discharging Hospital Unit/Room#: 249/2492 Discharging Unit Phone Number: Emergency Contact: Extended Emergency Contact Information Primary Emergency Contact: zachary arango Relation: Legal Guardian Secondary Emergency Contact: pablito arango Relation: Brother/Sister Past Surgical History: No past surgical history on file. Immunization History: There is no immunization history on file for this patient. Active Problems: Patient Active Problem List Diagnosis Code Urinary tract infectious disease N39.0 Severe sepsis (HCC) A41.9, R65.20 Isolation/Infection: Isolation No Isolation Patient Infection Status Infection Onset Added Last Indicated Last Indicated By Review Planned Expiration Resolved Resolved By None active Resolved COVID-19 (Rule Out) 04/10/22 04/10/22 04/10/22 Respiratory Panel, Molecular, with COVID-19 (Restricted: peds pts or suitable admitted adults) (Ordered) 04/11/22 Rule-Out Test Resulted ESBL (Extended Spectrum Beta Lactamase) 11/29/20 11/29/20 Treva Mcbride RN 04/11/22 Marija Mcpherson RN 11/27/20 ESBL urine COVID-19 (Rule Out) 11/27/20 11/27/20 11/27/20 COVID-19, Rapid (Ordered) 11/27/20 Rule-Out Test Resulted Nurse Assessment: Last Vital Signs: BP (!) 138/57 Pulse 68 Temp (!) 96.3 F (35.7 C) (Temporal) Resp 18 Ht 5' 2" (1.575 m) Wt 167 lb 3.2 oz (75.8 kg) SpO2 93% BMI 30.58 kg/m Last documented pain score (0-10 scale): Last Weight: Wt Readings from Last 1 Encounters: 04/10/22 167 lb 3.2 oz (75.8 kg) Mental Status: disoriented and alert IV Access: - None Nursing Mobility/ADLs: Walking Dependent Transfer Dependent Bathing Dependent Dressing Dependent Toileting {CH DME ADLs:[id number]} Feeding Assisted Crawler Tractor Operator Assisted Med Delivery crushed and prefers mixed with pudding or coffee Wound Care Documentation and Therapy: Elimination: Continence: Bowel: No Bladder: No Urinary Catheter: None Colostomy/Ileostomy/Ileal Conduit: No Date of Last BM: 04/18/22 Intake/Output Summary (Last 24 hours) at 04/17/2022 0828 Last data filed at 04/16/2022 1730 Gross per 24 hour Intake 740 ml Output -- Net 740 ml I/O last 3 completed shifts: In: 740 [P.O.:740] Out: - Safety Concerns: At Risk for Falls and Aspiration Risk Impairments/Disabilities: None Nutrition Therapy: Current Nutrition Therapy: - Oral Diet: Dysphagia 2 mechanically altered Routes of Feeding: Oral Liquids: Dows Thick Liquids Daily Fluid Restriction: no Last Modified Barium Swallow with Video (Video Swallowing Test): not done Treatments at the Time of Hospital Discharge: Respiratory Treatments: Oxygen Therapy: is not on home oxygen therapy. Ventilator: { CC Vent List:[id number]} Rehab Therapies: {THERAPEUTIC INTERVENTION:[id number]} Weight Bearing Status/Restrictions: No weight bearing restrictions Other Medical Equipment (for information only, NOT a DME order): wheelchair Other Treatments: Patient's personal belongings (please select all that are sent with patient): None RN SIGNATURE: CASE MANAGEMENT/SOCIAL WORK SECTION Inpatient Status Date: Readmission Risk Assessment Score: Readmission Risk Risk of Unplanned Readmission: 13 Discharging to Facility/ Agency Name: [facility] Address: [address] [place] [address] Fax: Dialysis Facility (if applicable) Name: Address: Dialysis Schedule: Phone: Fax: Washing Machine Operator/Hotel Valet Attendant signature: PHYSICIAN SECTION Prognosis: Good Condition at Discharge: Stable Rehab Potential (if transferring to Rehab): Good Recommended Labs or Other Treatments After Discharge: BMP, CBC in 2 days. Aspiration precautions - minced/moist diet with mildly thickened liquids per Speech Therapy evaluation Physician Certification: I certify the above information and transfer of Ubaldo Arango is necessary for the continuing treatment of the diagnosis listed and that she requires Long-Term Facility for greater 30 days. Update Admission H&P: No change in H&P PHYSICIAN SIGNATURE: documented in this encounter [facility] Work Phone: 12-03-2020 History of Presen t illness Narrative Pt discharged with transport service, brief report and recent vitals given with no other questions at this time. All pt belongings sent with pt. Report given to Vannesa by day shift RN. Pt alert sitting quietly in bed, was able to hang Abx but was not able to get pt to take evening oral medications. Pt turns toward the opposite side of bed when approached with oral medication administration. Will continue to monitor pt progress. Report given to Vannesa Talavera Speech Language Pathology Attempted to see pt for dysphagia therapy. Pt is currently ordered minced and moist, thin liquid diet. Pt consumes liquids via sippy cup. Pt initially smiling when this PLANT CONTROL OPERATOR said hello. Offered pt her sippy cup and pt becoming agitated and pointing towards the doorway and yelling, "go!" RN reports pt consuming limited po. Given pt's mental status(pt with significant psych and TBI hx), feel pt most likely at max potential and suggest continue minced and moist, thin liquid diet as pt tolerates. No further dysphagia intervention indicated at this time. Reconsult if further concerns arise. Felicitas Hussein MA, CCC-PLANT CONTROL OPERATOR 12/02/2020 Pharmacy Vancomycin Consult Follow-Up Note Current Dosin mg q12h Recent Labs 12/01/20 0354 12/02/20 0608 BUN 12 8 Recent Labs 12/01/20 0354 12/02/20 0608 CREATININE 0.47* 0.46* Recent Labs 12/01/20 0354 12/02/20 0608 WBC 11.3* 11.2* Ht Readings from Last 1 Encounters: 12/01/20 5' 2" (1.575 m) Wt Readings from Last 1 Encounters: 12/01/20 185 lb 6 oz (84.1 kg) Body mass index is 33.91 kg/m . Estimated Creatinine Clearance: 113 mL/min (A) (based on SCr of 0.46 mg/dL (L)). Trough: 19.1 Drawn 4-30 at 1032. Assessment/Plan: Continue same dose and frequency Comprehensive Nutrition Assessment Type and Reason for Visit: Reassess Nutrition Recommendations/Plan: 1. Continue current diet- minced and moist, thin liquids per PLANT CONTROL OPERATOR. 2. Continue Magic Cup BID. Initiate pro-stat BID mixed w/pop, pt is currently receiving pop with meals. Pro-stat provides an additional 100 kcals and 15 gm protein per serving. -please document intakes of meals and ONS. Unable to interview pt for intake data and ONS preferences. 3. Monitor need for additional route of nutrition as intakes remain poor. 4. RD will continue to follow and monitor nutritional status and goals of care. Nutrition Assessment: Pt remains admitted w/sepsis r/t UTI and bacteremia, acute encephalopathy, hx of anoxic brain injury and dementia. PLANT CONTROL OPERATOR continues to recommend minced and moist diet w/thin liquids in sippy cup. Pt still w/limited participation in PLANT CONTROL OPERATOR eval. Pt receiving Mac and cheese w/mashed potatoes everyday. Also receiving magic cup at L/D. Pt receiving pop on multiple trays, unsure if this is a preference for pt, but will trial addition of pro-stat to the pop. Malnutrition Assessment: Malnutrition Status: Insufficient data Context: Acute Illness Estimated Daily Nutrient Needs: Energy (kcal): 4959-5782 kcals(25-30); Weight Used for Energy Requirements: Gary(50kg) Protein (g): 50-60(1-1.2); Weight Used for Protein Requirements: Gary Fluid (ml/day): 1500 ml/day or per MD; Method Used for Fluid Requirements: 1 ml/kcal Nutrition Related Findings: +BS; emesis; generalized edema; assist Wounds: (right upper leg abrasion, buttocks healed, right inner buttock abrasion/redness) Current Nutrition Therapies: DIET DYSPHAGIA MINCED AND MOIST; Dietary Nutrition Supplements: Frozen Oral Supplement Dietary Nutrition Supplements: Protein Modular Anthropometric Measures: Height: 5' 2" (157.5 cm) Current Body Weight: 185 lb (83.9 kg) Admission Body Weight: 187 lb (84.8 kg) Usual Body Weight: Gary Body Weight: 110 lbs; % Gary Body Weight 168.2 % BMI: 33.8 Adjusted Body Weight: ; No Adjustment Adjusted BMI: BMI Categories: Obese Class 1 (BMI 30.0-34.9) Nutrition Diagnosis: Inadequate oral intake related to cognitive or neurological impairment as evidenced by intake 0-25% Swallowing difficulty related to cognitive or neurological impairment as evidenced by swallow study results(baseline modified diet textures) Nutrition Interventions: Food and/or Nutrient Delivery: Continue Current Diet, Continue Oral Nutrition Supplement, Start Oral Nutrition Supplement Nutrition Education/Counseling: No recommendation at this time Coordination of Nutrition Care: Continue to monitor while inpatient, Feeding Assistance/Environment Change, Speech Therapy Goals: Pt will consume/tolerate >50% meals/ONS w/safe swallow. Nutrition Monitoring and Evaluation: Behavioral-Environmental Outcomes: None Identified Food/Nutrient Intake Outcomes: Diet Advancement/Tolerance, Food and Nutrient Intake, Supplement Intake Physical Signs/Symptoms Outcomes: Biochemical Data, Chewing or Swallowing, GI Status, Nausea or Vomiting, Nutrition Focused Physical Findings, Skin, Meal Time Behavior, Weight Discharge Planning: Too soon to determine Contact: [phone] Images from the original note were not included. Hospitalist Progress Note 12/01/2020 1:23 PM Subjective: Admit Date: 11/27/2020 PCP: No primary care provider on file. Room#: 256/2561 Interval History: No overnight issues. Pt still agitated at times Taking some meds Afebrile DIET DYSPHAGIA MINCED AND MOIST; Dietary Nutrition Supplements: Frozen Oral Supplement Patient Vitals for the past 96 hrs (Last 3 readings): Weight 12/01/20 0447 185 lb 6 oz (84.1 kg) 11/30/20 0549 186 lb 9.6 oz (84.6 kg) 11/29/20 0505 182 lb 4.8 oz (82.7 kg) Medications: lactated ringers Stopped (11/29/20 1505) sodium chloride vancomycin 1,750 mg Intravenous Q12H ertapenem (INVanz) IVPB 1,000 mg Intravenous Q24H valproic acid 250 mg Oral 3 times per day metoprolol 5 mg Intravenous Q6H Levothyroxine Sodium 80 mcg Intravenous Daily sodium chloride flush 5-40 mL Intravenous 2 times per day enoxaparin 40 mg Subcutaneous Daily QUEtiapine 50 mg Oral BID metoclopramide 10 mg Oral BID cetirizine 5 mg Oral Daily famotidine 20 mg Oral Daily bisacodyl 10 mg Rectal Daily ethosuximide 600 mg Oral BID LABS: CBC: Recent Labs 11/29/20 0547 11/30/20 1413 12/01/20 0354 WBC 11.0* 11.7* 11.3* RBC 4.16 4.20 4.31 HGB 12.0 11.7 12.0 HCT 36.0 35.8 36.5 MCV 86.5 85.1 84.6 RDW 16.6* 16.4* 16.7* PLT 214 302 282 BMP: Recent Labs 11/29/20 0547 11/30/20 1413 12/01/20 0354 NA 135 139 138 K 4.3 4.0 3.9 CL 105 106 110* CO2 25 27 23 BUN 19 16 12 CREATININE 0.62 0.50* 0.47* GLUCOSE 95 103* 98 CALCIUM 9.3 9.3 9.1 ANIONGAP 5 5 5 Procalcitonin: Lab Results Component Value Date PROCAL 1.07 12/01/2020 Objective: Vitals: BP 108/62 Pulse 62 Temp 98.1 F (36.7 C) (Temporal) Resp 16 Ht 5' 2" (1.575 m) Wt 185 lb 6 oz (84.1 kg) SpO2 96% BMI 33.91 kg/m Pulse Ox: SpO2 Av.2 % Min: 94 % Max: 96 % Supplemental O2: O2 Flow Rate (L/min): (patient refused 2liters of nasal canular oxygen) General appearance: No physiologic distress, but agitated/yelling at times- currently calm/laughing HEENT: Normal cephalic, atraumatic without obvious deformity Conjunctivae/corneas clear. Poor dentitin Neck: Supple, with full range of motion. No jugular venous distention. Trachea midline. Respiratory: Normal respiratory effort. Clear to auscultation, bilaterally without Rales/Wheezes/Rhonchi. Cardiovascular: Regular rate and rhythm with normal S1/S2 Abdomen: Soft, non-tender, non-distended with normal bowel sounds Musculoskeletal: No clubbing, cyanosis or edema bilaterally. Full range of motion without deformity. Skin: exposed skin intact Neurologic: Makes eye contact when name is called. Answers yes/no to some questions Assessment/Plan UTI due to EColi w/ESBL Bacteremia, (Staph epi, staph hominis, proteus) -discussed w/ATB stewardship-> switch to Ertapenem/continue Vanco -repeat blood cultures 11/29; if blood cultures neg, will need ATB through 12/12 Concern for sepsis (leukocytosis, worsening procal, tachycardia, fever, hyperglycemia) -continue mgmt of above Acute metabolic encephalopathy d/t above Known anoxic brain injury, unspecified dementia, schizoaffective disorder -continue tx above, re-oreint, provide emotional support -frequent family communication -Haldol PRN -CTH ordered- not done yet d/t patient's agitation Hypokalemia, improved Dysphagia -ST rec Minced/Moist diet Seizure disorder -on VPA/Ethosuximide chronically (not taking any PO meds consistently) -continue VPA elixir mixed w/juice->pt didn't drink -high risk for seizures (not on meds +carbapenem) -seizure precautions -PRN Benzo added Intermittent hypoxia, ?accuracy -no current resp symptoms -sats ok Hypothyroidism -continue IV Levothyroxine for now -am labs, replace lytes prn -increase activity -DVT prophylaxis: [x] Lovenox [] Heparin [] SCDs [x] Encourage ambulation [] Already on Anticoagulation Advance Directive: DNR-CCA Discharge planning: TBD Division of Hospitalist Medicine Inpatient Medical Services Pharmacy Vancomycin Consult Follow-Up Note Current Dosinmg q12h Recent Labs 11/29/20 0547 11/30/20 1413 BUN 19 16 Recent Labs 11/29/20 0547 11/30/20 1413 CREATININE 0.62 0.50* Recent Labs 11/29/20 0547 11/30/20 1413 WBC 11.0* 11.7* Ht Readings from Last 1 Encounters: 11/28/20 5' 2" (1.575 m) Wt Readings from Last 1 Encounters: 11/30/20 186 lb 9.6 oz (84.6 kg) Body mass index is 34.13 kg/m . Estimated Creatinine Clearance: 104 mL/min (A) (based on SCr of 0.5 mg/dL (L)). Trough: 11.5 ug/ml Drawn 11/30 at 1928. Assessment/Plan: Will increase the dose to 1750mg q12h, and schedule a trough prior to the 4th dose, on 12/02/2020 in AM. (Our target range for the trough levels is from 15-20 ug/ml.) Images from the original note were not included. Hospitalist Progress Note 11/30/2020 10:42 AM Subjective: Admit Date: 11/27/2020 PCP: No primary care provider on file. Room#: 256/2561 Interval History: Still not taking meds regularly- did take Ethosuximide this AM Spoke with Zachary via phone- states that she will have Kimberly (patient's brother) come and bring her food today. DIET DYSPHAGIA MINCED AND MOIST; Dietary Nutrition Supplements: Frozen Oral Supplement Patient Vitals for the past 96 hrs (Last 3 readings): Weight 11/30/20 0549 186 lb 9.6 oz (84.6 kg) 11/29/20 0505 182 lb 4.8 oz (82.7 kg) 11/28/20 0722 187 lb 8 oz (85 kg) Medications: lactated ringers Stopped (11/29/20 1505) sodium chloride ertapenem (INVanz) IVPB 1,000 mg Intravenous Q24H valproic acid 250 mg Oral 3 times per day metoprolol 5 mg Intravenous Q6H Levothyroxine Sodium 80 mcg Intravenous Daily vancomycin 1,250 mg Intravenous Q12H sodium chloride flush 5-40 mL Intravenous 2 times per day enoxaparin 40 mg Subcutaneous Daily QUEtiapine 50 mg Oral BID metoclopramide 10 mg Oral BID cetirizine 5 mg Oral Daily famotidine 20 mg Oral Daily bisacodyl 10 mg Rectal Daily ethosuximide 600 mg Oral BID LABS: CBC: Recent Labs 11/28/20 0426 11/29/20 0547 WBC 12.9* 11.0* RBC 4.11 4.16 HGB 11.6* 12.0 HCT 35.0 36.0 MCV 85.1 86.5 RDW 16.2* 16.6* PLT 230 214 BMP: Recent Labs 11/28/20 0426 11/29/20 0547 NA 139 135 K 3.4* 4.3 CL 107 105 CO2 29 25 BUN 16 19 CREATININE 0.78 0.62 GLUCOSE 132* 95 CALCIUM 9.3 9.3 ANIONGAP 3 5 LIVER PROFILE: Recent Labs 11/28/20425 AST 40 ALT 18 BILITOT 0.4 ALKPHOS 83 LABALBU 3.6 PROT 7.3 Procalcitonin: Lab Results Component Value Date PROCAL 4.62 11/29/2020 Objective: Vitals: BP (!) 159/77 Pulse 60 Temp 96.4 F (35.8 C) (Temporal) Resp 18 Ht 5' 2" (1.575 m) Wt 186 lb 9.6 oz (84.6 kg) SpO2 91% BMI 34.13 kg/m Pulse Ox: SpO2 Av.3 % Min: 91 % Max: 96 % Supplemental O2: O2 Flow Rate (L/min): (patient refused 2liters of nasal canular oxygen) General appearance: No physiologic distress, but agitated/yelling at times- currently calm/laughing HEENT: Normal cephalic, atraumatic without obvious deformity Conjunctivae/corneas clear. Poor dentitin Neck: Supple, with full range of motion. No jugular venous distention. Trachea midline. Respiratory: Normal respiratory effort. Clear to auscultation, bilaterally without Rales/Wheezes/Rhonchi. Cardiovascular: Regular rate and rhythm with normal S1/S2 Abdomen: Soft, non-tender, non-distended with normal bowel sounds Musculoskeletal: No clubbing, cyanosis or edema bilaterally. Full range of motion without deformity. Skin: exposed skin intact Neurologic: Makes eye contact when name is called. Answers yes/no to some questions Assessment/Plan UTI due to EColi w/ESBL Bacteremia, (Staph epi, staph hominis, proteus) -discussed w/ATB stewardship-> switch to Ertapenem/continue Vanco -repeat blood cultures 11/29; if blood cultures neg, will need ATB through 12/12 Concern for sepsis (leukocytosis, worsening procal, tachycardia, fever, hyperglycemia) -continue mgmt of above Acute metabolic encephalopathy d/t above Known anoxic brain injury, unspecified dementia, schizoaffective disorder -continue tx above, re-oreint, provide emotional support -frequent family communication -Guardian visiting today -Haldol PRN -CTH ordered- not done yet d/t patient's agitation Hypokalemia, improved Dysphagia -ST rec Minced/Moist diet Seizure disorder -on VPA/Ethosuximide chronically (not taking any PO meds consistently -continue VPA elixir mixed w/juice->pt didn't drink -high risk for seizures (not on meds +carbapenem) -seizure precautions -PRN Benzo added Intermittent hypoxia, ?accuracy -no current resp symptoms -sats ok Hypothyroidism -continue IV Levothyroxine for now -am labs, replace lytes prn -increase activity -DVT prophylaxis: [x] Lovenox [] Heparin [] SCDs [x] Encourage ambulation [] Already on Anticoagulation Advance Directive: DNR-CCA Discharge planning: TBD-Palliative to see Division of Hospitalist Medicine Inpatient Medical Services Speech Language Pathology Facility/Department: [facility] TELEMETRY CLINICAL BEDSIDE SWALLOW EVALUATION NAME: Ubaldo Arango : 1950 ADMISSION DATE: 11/27/2020 ADMITTING DIAGNOSIS: has Urinary tract infectious disease on their problem list. ONSET DATE: 11/27/2020 Recent Chest Xray/CT of Chest: ( Date 11/27/2020 ) The trachea is midline. The heart is not enlarged. No focal areas of consolidation or volume loss are seen. There are no pleural effusions. The pulmonary vasculature does not appear congested. The visualized bony structures are intact. Impression: No acute process. Date of Eval: 11/30/2020 Evaluating Therapist: Raquel Lamar Current Diet level: Current Diet : Dysphagia Minced and Moist (Dysphagia II) Current Liquid Diet : Thin Primary Complaint Patient Complaint: Pt defers most foods when offered. Inconsistent with drinking per RN. Assess tolerance. Pain: Pain Assessment Pain Assessment: Faces Pain Level: 0 Schroeder-Jansen Pain Rating: No hurt Reason for Referral Ubaldo Arango was referred for a bedside swallow evaluation to assess the efficiency of her swallow function, identify signs and symptoms of aspiration and make recommendations regarding safe dietary consistencies, effective compensatory strategies, and safe eating environment. Impression Pt demonstrate limited acceptance. Attempted evaluation over 3 days. Pt handed her cup with acceptance this date. No overt deficits with thin liquids via disposable sippy cup. (uses one at nursing facility). Intermittent coughing with larger continuous drinks. Refusing solid textures. May consider set up and sitting back with distance, not to detur pt from oral acceptance. Currently saying NO with any offers. continue minced and moist, liquids via sippy cup (hand over hand may be helpful to shorten drink time to 1-3 swallows) Treatment Plan Requires PLANT CONTROL OPERATOR Intervention: Yes Duration/Frequency of Treatment: 3 visits Recommended Diet and Intervention Diet Solids Recommendation: Dysphagia Minced and Moist (Dysphagia II) Liquid Consistency Recommendation: Thin(via sippy cup. Assist with decreased continuous drinks with hand over hand stopping drink. (may need valce to reduce flow in cup)) Recommended Form of Meds: Crushed in puree as able(vs. alternate mean as pt does not accept.) Recommendations: Dysphagia treatment Compensatory Swallowing Strategies Compensatory Swallowing Strategies: Assist feed;Upright as possible for all oral intake(May need attempt for self feeding.) Treatment/Goals Short-term Goals Goal 1: Pt goal: none stated. Goal 2: Pt will accept soft foods and thin liquids via 'sippy cup' for nutirtional support without respiratory distress. General Chart Reviewed: Yes Subjective Subjective: Pt with significant psych and TBI history. Behavior/Cognition: Alert;Agitated O2 Device: None (Room air) Communication Observation: Aphasia(Comprehension better than expression, only communicates with few words/sounds) Patient Positioning: Upright in bed Baseline Vocal Quality: Normal Volitional Cough: Strong Prior Dysphagia History: Yes, on modified diet of mechanical soft with thin liquids via "sippy cup" at nursing facility. Consistencies Administered: Thin - cup(provided in sippy cup) Vision/Hearing Vision Vision: Within Functional Limits(appears) Hearing Hearing: Within functional limits(appears) Oral Motor Deficits Oral/Motor Oral Motor: (Unable to assess formally) Oral Phase Dysfunction Oral Phase Oral Phase - Comment: Pt does accept drinks from self adminstered cuppy sip. (disposible cup provided to pt.). Lip rounding and sticking tongue out to suck. Lip seal overtly functional and pt sucking what appears to be strong. Indicators of Pharyngeal Phase Dysfunction Pharyngeal Phase Pharyngeal: Unable to touch pt without pt yelling out. Observation with larger continue sippy cup drinks results in throat clearing and coughing. Smaller 1-3 sucks without overt deficits. Pt turned head aways and loudly spoke "NO" in offer for bites of oatmeal, eggs, yogurt. Prognosis Prognosis Prognosis for safe diet advancement: fair Barriers to reach goals: cognitive deficits Individuals consulted Consulted and agree with results and recommendations: RN Education Patient Education: Explain role and introduction to PLANT CONTROL OPERATOR Patient Education Response: Verbalizes understanding Therapy Time PLANT CONTROL OPERATOR Individual Minutes Time In: 0750 Time Out: 0800 Minutes: 10 ALEJANDRO Carcamo 11/30/2020 9:46 AM Due to a temporary loss of IV access, the Vancomycin 1250mg doses needed to be retimed from 1400 to (1999). The Trough has been rescheduled on 11/30/2020, at 1900 (prior to the 2000 dose on 11/30). Occupational Therapy Occupational Therapy Initial Assessment Date: 11/29/2020 Patient Name: Ubaldo Arango : 1950 Date of Service: 11/29/2020 OT orders received to evaluate and treat. PMH significant for dementia and anoxic brain injury since she was a child. She is non-verbal and gets into a wheelchair with assist. Is not following commands and is refusing morning medications. Appears at baseline. Spoke to case resource manager and she is a long-term resident and does not need OT to return. D/C OT orders. Jennyfer Diana OT Physical Therapy Facility/Department: [facility] TELEMETRY Initial Assessment NAME: Ubaldo Arango : 1950 Date of Service: 11/29/2020 PT orders received to evaluate and treat. PMH significant for dementia and anoxic brain injury since she was a child. She is non-verbal and gets into a wheelchair with assist. Is not following commands and is refusing morning medications. Appears at baseline. Spoke to case resource manager and she is a long-term resident and does not need PT to return. D/C PT orders. Gisel Sharma PT Speech Language Pathology Speech Language Pathology Attempted clinical bedside swallowing assessment. As previous date, on mechanical soft diet with thin liquids via sippy cup at facility. Pt did accept holding sippy cup with fresh water. Did not initiate cup drinks, attempt to gently assist with same and pt said, "no" turning head. Place water cup back on table. Offered pt bites of yogurt, pudding, cream of wheat. Pt was 'spitting' turning head and saying "NO. Mamamama" Multiple attempts without acceptance. Unable to assess at bedside pt swallowing function. Pt did not take medications for morning staff 08/31. Inconsistent acceptance. Images from the original note were not included. Hospitalist Progress Note 11/29/2020 9:34 AM Subjective: Admit Date: 11/27/2020 PCP: No primary care provider on file. Room#: 256/2561 Interval History: Unable to get CTH this AM Pt appears frightened- was able to drink some fluids from sippy cup. Spent total of 45 min at bedside with patient She seems to understand some questions Offered food multiple times today- she shakes her head and yells no Unable to administer PO meds since admission- multiple attempts today unsuccessful Multiple discussions w/RN at bedside Family Communication Rec return phone call from Guardian - Zachary Calhoun Updated re above and current plan of care; thankful for update. DIET DYSPHAGIA MINCED AND MOIST; Dietary Nutrition Supplements: Frozen Oral Supplement Patient Vitals for the past 96 hrs (Last 3 readings): Weight 11/29/20 0505 182 lb 4.8 oz (82.7 kg) 11/28/20 0722 187 lb 8 oz (85 kg) 11/27/20 1210 187 lb (84.8 kg) Medications: sodium chloride vancomycin 1,250 mg Intravenous Q12H sodium chloride flush 5-40 mL Intravenous 2 times per day enoxaparin 40 mg Subcutaneous Daily cefepime 2,000 mg Intravenous Q8H QUEtiapine 50 mg Oral BID metoprolol 100 mg Oral Daily metoclopramide 10 mg Oral BID cetirizine 5 mg Oral Daily levothyroxine 100 mcg Oral Daily famotidine 20 mg Oral Daily bisacodyl 10 mg Rectal Daily ethosuximide 600 mg Oral BID divalproex 250 mg Oral TID LABS: CBC: Recent Labs 11/27/20 0748 11/28/20 0426 11/29/20 0547 WBC 12.4* 12.9* 11.0* RBC 4.70 4.11 4.16 HGB 13.0 11.6* 12.0 HCT 39.7 35.0 36.0 MCV 84.5 85.1 86.5 RDW 16.2* 16.2* 16.6* PLT 332 230 214 BMP: Recent Labs 11/27/20 0748 11/28/20 0426 11/29/20 0547 NA 140 139 135 K 3.8 3.4* 4.3 CL 102 107 105 CO2 26 29 25 BUN 17 16 19 CREATININE 0.80 0.78 0.62 GLUCOSE 128* 132* 95 CALCIUM 10.0 9.3 9.3 ANIONGAP 12 3 5 LIVER PROFILE: Recent Labs 11/27/20 0748 11/28/20 0426 AST 25 40 ALT 18 18 BILITOT 0.4 0.4 ALKPHOS 86 83 LABALBU 4.1 3.6 PROT 8.3* 7.3 CARDIAC ENZYMES: Recent Labs 11/27/20 0748 TROPONINI <0.012 Procalcitonin: Lab Results Component Value Date PROCAL 4.62 11/29/2020 Objective: Vitals: BP 118/76 Pulse 71 Temp 98 F (36.7 C) (Temporal) Resp 16 Ht 5' 2" (1.575 m) Wt 182 lb 4.8 oz (82.7 kg) SpO2 91% BMI 33.34 kg/m Pulse Ox: SpO2 Av.8 % Min: 90 % Max: 91 % Supplemental O2: O2 Flow Rate (L/min): (patient refused 2liters of nasal canular oxygen) General appearance: No physiologic distress, but agitated/yelling HEENT: Normal cephalic, atraumatic without obvious deformity Conjunctivae/corneas clear. Poor dentitin Neck: Supple, with full range of motion. No jugular venous distention. Trachea midline. Respiratory: Normal respiratory effort. Clear to auscultation, bilaterally without Rales/Wheezes/Rhonchi. Cardiovascular: Regular rate and rhythm with normal S1/S2 Abdomen: Soft, non-tender, non-distended with normal bowel sounds Musculoskeletal: No clubbing, cyanosis or edema bilaterally. Full range of motion without deformity. Skin: exposed skin intact Neurologic: Makes eye contact when name is called. Answers yes/no to some questions Assessment/Plan UTI due to EColi w/ESBL Bacteremia, (Staph epi, staph hominis, proteus) -discussed w/ATB stewardship-> switch to Ertapenem/continue Vanco -repeat blood cultures requested Concern for sepsis (leukocytosis, worsening procal, tachycardia, fever, hyperglycemia) -continue mgmt of above Acute metabolic encephalopathy d/t above Known anoxic brain injury, unspecified dementia, schizoaffective disorder -continue tx above, re-oreint, provide emotional support -frequent family communication -Guardian is unable to visit at this time -Haldol PRN -CTH ordered Hypokalemia, improved Dysphagia -ST rec Minced/Moist diet Seizure disorder -on VPA/Ethosuximide chronically (not taking any PO meds currently-->discussed in detail w/Dr. Sen) -tried to have VPA elixir mixed w/juice->pt didn't drink -high risk for seizures (not on meds +carbapenem) -seizure precautions -PRN Benzo added Intermittent hypoxia, ?accuracy -no current resp symptoms -sats ok Hypothyroidism - will change to IV Levothyroxine for now -am labs, replace lytes prn -increase activity -DVT prophylaxis: [x] Lovenox [] Heparin [] SCDs [x] Encourage ambulation [] Already on Anticoagulation Advance Directive: DNR-CCA Discharge planning: TBD Division of Hospitalist Medicine Inpatient Medical Services Associated attestation - Yung Sen MD - 11/29/2020 4:05 PM EDT Discussed with Pricila Mcleod plan of care for patient - Will attempt to calm patient in order to have ultrasound guided IV done to continue her antibiotics for bacteremia Yung Sen MD 11/29/2020 4:05 PM Patient pulled IV out during potassium administration. New iv placed. Progress Note 11/28/2020 4:47 PM Name: Ubaldo Arango IP Day: 1 Admit Date: 11/27/2020 7:10 AM PCP: No primary care provider on file. Code Status: DNR-CCA Subjective: Confused. Won't take PO meds. No sob, cp, cough, n/v, f/c. D/w RN at bedside. Physical Examination: Vitals: BP 135/64 Pulse 79 Temp 98.6 F (37 C) (Temporal) Resp 18 Ht 5' 2" (1.575 m) Wt 187 lb 8 oz (85 kg) SpO2 90% BMI 34.29 kg/m Temp (24hrs), Av.6 F (37 C), Min:97.7 F (36.5 C), Max:99.6 F (37.6 C) General appearance: no distress Mental Status: not oriented Lungs: clear to auscultation bilaterally, normal effort Heart: regular rate and rhythm, no murmur Abdomen: soft, nontender, nondistended, bowel sounds present, no masses Extremities: trace edema, no redness, no tenderness in the calves Skin: no gross lesions, rashes Data: Labs: Recent Labs 11/27/20 0748 11/28/20 0426 WBC 12.4* 12.9* HGB 13.0 11.6* PLT 332 230 Recent Labs 11/27/20 0748 11/28/20 0426 NA 140 139 K 3.8 3.4* CL 102 107 CO2 26 29 BUN 17 16 CREATININE 0.80 0.78 GLUCOSE 128* 132* Recent Labs 11/27/20 0748 11/28/20 0426 AST 25 40 ALT 18 18 BILITOT 0.4 0.4 ALKPHOS 86 83 Assessment and Plan: Altered mental status UTI-E coli bacteremia SOB hypokalemia anemia HTN hyperglycemia Dysphagia Hx anoxic brain injury Dementia Obesity hypothyroidism Plan: continue cefipime, add vanco IV, re check blood cultures, replace k, oxygen as needed, check echocardiogram, follow up labs, follow up BG, PT/OT/PLANT CONTROL OPERATOR, encourage PO, see orders. Comprehensive Nutrition Assessment Type and Reason for Visit: Initial, Positive Nutrition Screen Nutrition Recommendations/Plan: 1. Continue with Minced and Moist Diet. PLANT CONTROL OPERATOR following. 2. Initiate Magic cup BID per MNT protocol. Magic cup provides 290 kcals, 9 g protein per serving. 3. Please document pt's PO intakes via flowsheet to accurately assess PO intake adequacy. 4. Monitor needs for alternate nutrition if PO remains contraindicated. Consider appetite stimulant first if appropriate per MD discretion. 5. Monitor intakes, wts, and labs. RD will follow. Nutrition Assessment: Pt admit with Hypoxemia, fever and AMS. Pt does not respond to any questions. Lunch tray at bedside unconsumed. PLANT CONTROL OPERATOR is following and also noted inability to assess pt due to lack of participation. Malnutrition Assessment: Malnutrition Status: Insufficient data Context: Acute Illness Findings of the 6 clinical characteristics of malnutrition: Energy Intake: (Refusing PO intakes so far, x1 day since admit) Weight Loss: Unable to assess Body Fat Loss: Unable to assess Muscle Mass Loss: Unable to assess Fluid Accumulation: No significant fluid accumulation Post Hole Digging Machine Operator Strength: Not Performed Estimated Daily Nutrient Needs: Energy (kcal): 1317-8958 kcals(25-30); Weight Used for Energy Requirements: Gary(50kg) Protein (g): 50-60(1-1.2); Weight Used for Protein Requirements: Gary Fluid (ml/day): 1500 ml/day or per MD; Method Used for Fluid Requirements: 1 ml/kcal Nutrition Related Findings: no edema; K+ 3.4, Glucose 132, 128, Hgb 11.6, Hct 35.0, NT pro BNP 2222, Albumin 3.6 Wounds: (right upper leg abrasion, buttocks healed, right inner buttock abrasion/redness) Current Nutrition Therapies: DIET DYSPHAGIA MINCED AND MOIST; Dietary Nutrition Supplements: Frozen Oral Supplement Anthropometric Measures: Height: 5' 2" (157.5 cm) Current Body Weight: 182 lb 5.1 oz (82.7 kg) Admission Body Weight: 187 lb (84.8 kg) Usual Body Weight: Gary Body Weight: 110 lbs; % Gary Body Weight 165.7 % BMI: 33.3 Adjusted Body Weight: ; No Adjustment BMI Categories: Obese Class 1 (BMI 30.0-34.9) Nutrition Diagnosis: Inadequate oral intake related to cognitive or neurological impairment as evidenced by intake 0-25% Swallowing difficulty related to cognitive or neurological impairment as evidenced by swallow study results(baseline modified diet textures) Nutrition Interventions: Food and/or Nutrient Delivery: Continue Current Diet, Start Oral Nutrition Supplement Nutrition Education/Counseling: No recommendation at this time Coordination of Nutrition Care: Continue to monitor while inpatient, Speech Therapy Goals: Pt will receive/tolerate >50% of meals/supplements with safe swallow Nutrition Monitoring and Evaluation: Behavioral-Environmental Outcomes: None Identified Food/Nutrient Intake Outcomes: Diet Advancement/Tolerance, Food and Nutrient Intake, Supplement Intake Physical Signs/Symptoms Outcomes: Biochemical Data, Chewing or Swallowing, GI Status, Fluid Status or Edema, Weight, Skin, Nutrition Focused Physical Findings Discharge Planning: Too soon to determine Contact: *[phone] Progress Note 11/28/2020 12:57 PM Name: Ubaldo Arango IP Day: 1 Admit Date: 11/27/2020 7:10 AM PCP: No primary care provider on file. Code Status: DNR-CCA Subjective: Confused. Won't take PO meds. No sob, cp, cough, n/v, f/c. D/w RN at bedside. Physical Examination: Vitals: BP 117/60 Pulse 93 Temp 97.7 F (36.5 C) (Temporal) Resp 18 Ht 5' 2" (1.575 m) Wt 187 lb 8 oz (85 kg) SpO2 (!) 87% BMI 34.29 kg/m Temp (24hrs), Av.7 F (37.1 C), Min:97.7 F (36.5 C), Max:99.6 F (37.6 C) General appearance: no distress Mental Status: not oriented Lungs: clear to auscultation bilaterally, normal effort Heart: regular rate and rhythm, no murmur Abdomen: soft, nontender, nondistended, bowel sounds present, no masses Extremities: trace edema, no redness, no tenderness in the calves Skin: no gross lesions, rashes Data: Labs: Recent Labs 11/27/20 0748 11/28/20 0426 WBC 12.4* 12.9* HGB 13.0 11.6* PLT 332 230 Recent Labs 11/27/20 0748 11/28/20 0426 NA 140 139 K 3.8 3.4* CL 102 107 CO2 26 29 BUN 17 16 CREATININE 0.80 0.78 GLUCOSE 128* 132* Recent Labs 11/27/20 0748 11/28/20 0426 AST 25 40 ALT 18 18 BILITOT 0.4 0.4 ALKPHOS 86 83 Assessment and Plan: Altered mental status UTI-E coli bacteremia SOB hypokalemia anemia HTN hyperglycemia Dysphagia Hx anoxic brain injury Dementia Obesity hypothyroidism Plan: continue cefipime, add vanco IV, re check blood cultures, replace k, follow up labs, follow up BG, PT/OT/PLANT CONTROL OPERATOR, encourage PO, see orders. Physical Therapy Facility/Department: [facility] TELEMETRY Initial Assessment NAME: Ubaldo Arango : 1950 Date of Service: 11/28/2020 PT eval and treat orders received. Chart review completed. Per RN therapy okay to attempt, however, pt has been declining all medications and food and has not been agreeable. PT eval attempted, introduced self and role to pt. Pt offered multiple options for therapy and provided with max encouragement, however, patient kept stating "no" to each option. Will re-attempt as schedule permits. Clarissa Hernandez PT Occupational Therapy Occupational Therapy Initial Assessment Date: 11/28/2020 Patient Name: Ubaldo Arango : 1950 Date of Service: 11/28/2020 OT eval and treat orders received. Chart reviewed. Per RN therapy okay to attempt, however, pt has been declining all medications and has not been agreeable. OT eval attempted, introduced self and role to pt. Pt offered multiple options for therapy and provided with max encouragement, however, stated "no" to each one. Will re-attempt at a later day/time as schedule permits. Phyllis Epperson OT Speech Language Pathology Facility/Department: [facility] TELEMETRY Dysphagia Eval Attempt Note NAME: Ubaldo Arango : 1950 Allergies: No Known Allergies Chart review completed. Current Diet Level: Minced and moist with thin liquids via a sippy cup. Pain:No indication. S: Pt calling out sounds. O: Assess swallowing function. Pt coughed after taking gingerale with emesis last pm 09/29. A: Attempt evaluation. Calm approach with pt. Offered single items. Was able to provide a disposable 'sippy cup' to pt for oral intake. Pt would not accept any drinks, bites. Spitting to offer of bites. Shaking head 'no' to taking pudding, applesauce, drink, ice chip, taste via spoon. RN assisted and pt was calm to singing. P: Unable to complete Clinical Bedside Swallowing assessment. Pt would benefit from medications, seizure, psych medications to assist with participation. Pt continues on minced and moist (baseline diet) Total Minutes: 15 minutes of non-billable time was spent with pt, however unable to assess. Time Session Ended: 905 Raquel Lamar M.A.CCC/PLANT CONTROL OPERATOR Speech-Language Pathologist An K95 mask and gloves were worn throughout this session. Patient is nonverbal but will produce high pitched screams when she seems to be uncomfortable with the nursing interventions. This RN was unable to give the patient her oral medications, put the security monitor on, nor the oxygen tubing for supplemental O2. Patient's current pulse oximetry reading is 92% room air. The patient allowed me to give her IV medications. [facility] hospitalist is aware. Dr. Madera aware patient is refusing medications. Perfect serve to Dr. Madera: Patient is refusing to take medications. Called assisted for tips and they said she has a hard time with different people in her environment. Spoke with guardian Zachary Zarate, she said patient is non verbal but able to understand some things. She gets in a wheelchair at the assisted and wheel around. If she gets frightened or frustrated, he does have a behavior and will hit her face. She is able to feed self if set up. She has had this brain injury since she was a child. Perfect serve to Dr. Madera to noify that patient will not keep oxygen on face. Patient is pulling oxygen off. Willnot keep on. documented in this encounter [facility] Work Phone: 12-02-2020 Hospital Discharg Dylan Cortes RN - 12/02/2020 5:28 PM EDT As tolerated Dylan Foss RN - 12/02/2020 5:28 PM EDT Good nutrition is important when healing from an illness, injury, or surgery. Follow any nutrition recommendations given to you during your hospital stay. If you were given an oral nutrition supplement while in the hospital, continue to take this supplement at home. You can take it with meals, in-between meals, and/or before bedtime. These supplements can be purchased at most local grocery stores, pharmacies, and [employer]. If you have any questions about your diet or nutrition, call the hospital and ask for the dietitian. Dysphagia. Minced and moist Dylan Foss RN - 11/29/2020 2:21 PM EDT Continuity of Care Form Patient Name: Ubaldo Arango : 1950 Admit date: 11/27/2020 Discharge date: Code Status Order: DNR-CCA Advance Directives: Advance Care Flowsheet Documentation Date/Time Healthcare Directive Type of Healthcare Directive Copy in Chart Healthcare Agent Appointed Healthcare Agent's Name Healthcare Agent's Phone Number 11/27/20 [phone] Yes, patient has an advance directive for healthcare treatment Other (Comment) she has a guardian in place No, copy requested from family Legal Guardian Haritha Arango [phone] Admitting Physician: Naz Madera MD PCP: No primary care provider on file. Discharging Nurse: Discharging Hospital Unit/Room#: 256/2561 Discharging Unit Phone Number: Emergency Contact: No emergency contact information on file. Past Surgical History: History reviewed. No pertinent surgical history. Immunization History: There is no immunization history on file for this patient. Active Problems: Patient Active Problem List Diagnosis Code Urinary tract infectious disease N39.0 Isolation/Infection: Isolation Contact Patient Infection Status Infection Onset Added Last Indicated Last Indicated By Review Planned Expiration Resolved Resolved By ESBL (Extended Spectrum Beta Lactamase) 11/29/20 11/29/20 Treva Mcbride RN 11/27/20 ESBL urine Resolved COVID-19 Rule Out 11/27/20 11/27/20 11/27/20 COVID-19, Rapid (Ordered) 11/27/20 Rule-Out Test Resulted Nurse Assessment: Last Vital Signs: BP (!) 148/67 Pulse 68 Temp 98 F (36.7 C) (Temporal) Resp 16 Ht 5' 2" (1.575 m) Wt 182 lb 4.8 oz (82.7 kg) SpO2 91% BMI 33.34 kg/m Last documented pain score (0-10 scale): Pain Level: 0 Last Weight: Wt Readings from Last 1 Encounters: 11/29/20 182 lb 4.8 oz (82.7 kg) Mental Status: JUAN PABLO IV Access: - PICC - site R Antecubital, insertion date: 12/02/20 Nursing Mobility/ADLs: Walking Dependent Transfer Dependent Bathing Dependent Dressing Dependent Toileting Dependent Feeding Assisted Crawler Tractor Operator Assisted Med Delivery crushed Wound Care Documentation and Therapy: Elimination: Continence: Bowel: No Bladder: No Urinary Catheter: None Colostomy/Ileostomy/Ileal Conduit: No Date of Last BM: 12/02/20 Intake/Output Summary (Last 24 hours) at 11/29/2020 1420 Last data filed at 11/29/2020 1228 Gross per 24 hour Intake 680 ml Output Net 680 ml I/O last 3 completed shifts: In: 600 [P.O.:600] Out: - Safety Concerns: History of Falls (last 30 days) and Aspiration Risk Impairments/Disabilities: Speech Nutrition Therapy: Current Nutrition Therapy: - Oral Diet: Dysphagia 1 pureed Routes of Feeding: Oral Liquids: No Restrictions Daily Fluid Restriction: no Last Modified Barium Swallow with Video (Video Swallowing Test): not done Treatments at the Time of Hospital Discharge: Respiratory Treatments: Oxygen Therapy: is not on home oxygen therapy. Ventilator: - No ventilator support Rehab Therapies: Physical Therapy and Occupational Therapy Weight Bearing Status/Restrictions: No weight bearing restirctions Other Medical Equipment (for information only, NOT a DME order): wheelchair Other Treatments: Patient's personal belongings (please select all that are sent with patient): clothing RN SIGNATURE: CASE MANAGEMENT/SOCIAL WORK SECTION Inpatient Status Date: 11/27/2020 Readmission Risk Assessment Score: Readmission Risk Risk of Unplanned Readmission: 11 Discharging to Facility/ Agency Name: [facility] Address: [facility] (if applicable) Name: Address: Dialysis Schedule: Phone: 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 Update Admission H&P: No change in H&P PHYSICIAN SIGNATURE: documented in this encounter [facility] Work Phone: Evaluation note Diagnosis Urinary tract infection with hematuria, site unspecified- Primary Chronic pain syndrome documented in this encounter [facility] Work Phone: Evaluation noteNo assessment information available [facility] Work Phone: Evaluation note* Diagnosis Septicemia (HCC)- Primary Unspecified septicemia Hypoxia Hypoxemia Acute cystitis without hematuria Acute cystitis Pneumonia of right middle lobe due to infectious organism Severe sepsis (HCC) documented in this encounter [facility] Work Phone: Evaluation note* Diagnosis Acute cough- Primary Viral upper respiratory tract infection Acute upper respiratory infections of unspecified site [facility] Attachments The following attachments cannot be sent through Care Everywhere. 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 ACP-Do Not Resuscitate 12/05/2020 12:47 PM Latest Code Status on File Code Status Date Activated Date Inactivated Comments Limited 04/12/2022 11:34 AM Intubation/Re-intubation at the time of arrest: No Defibrillation/Cardioversion: No Chest Compressions: No Resuscitative Medications: No Other (Specify in Free Text): ok for blo od products and anbx coverage Full Code 04/11/2022 12:57 AM 04/12/2022 11:33 AM DNR-CCA 11/27/2020 11:49 AM 12/03/2020 5:24 AM Documents on File Type Date Recorded 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 DNR (Do Not Resuscitate) 04/19/2022 DNR (Do Not Resuscitate) 11/27/2020 Chief Complaint and Reason for Visit Chief Complaint CUSTODIAL LAB WOR K CUSTODIAL LAB WORK CUSTODIAL LABWORK CUSTODIAL LABWORK CUSTODIAL LAB WORK CUSTODIAL LABWORK CUSTODIAL LAB WORK Chief Complaint CUSTODIAL LABWORK CUSTODIAL LABWORK CUSTODIAL LAB WORK CUSTODIAL LABWORK CUSTODIAL LAB WORK CUSTODIAL LABWORK Chief Complaint CUSTODIAL LABWORK CUSTODIAL LAB WORK CUSTODIAL LABWORK CUSTODIAL LAB WORK CUSTODIAL LABWORK Chief Complaint CUSTODIAL LAB WOR K CUSTODIAL LABWORK CUSTODIAL LABWORK LABWORK Chief Complaint CUSTODIAL LABWORK CUSTODIAL LABWORK LABWORK CUSTODIAL LAB WORK Chief Complaint CUSTODIAL LABWORK LABWORK CUSTODIAL LAB WORK CUSTODIAL LAB WORK LABWORK Chief Complaint LABWORK CUSTODIAL LAB WORK CUSTODIAL LAB WORK LABWORK CUSTODIAL LAB WORK Chief Complaint LABWORK CUSTODIAL LAB WORK CUSTODIAL LAB WORK LABWORK CUSTODIAL LABWORK CUSTODIAL LAB WORK Chief Complaint CUSTODIAL LAB WOR K LABWORK CUSTODIAL LABWORK CUSTODIAL LAB WORK LABWORK CUSTODIAL LAB WORK Chief Complaint CUSTODIAL LAB WOR K LABWORK CUSTODIAL LAB WORK CUSTODIAL LAB WORK Chief Complaint CUSTODIAL LAB WOR K LABWORK CUSTODIAL LAB WORK CUSTODIAL LAB WORK CUSTODIAL LABWORK Chief Complaint CUSTODIAL LAB WOR K CUSTODIAL LABWORK CUSTODIAL LABWORK Chief Complaint CUSTODIAL LAB WOR K CUSTODIAL LABWORK CUSTODIAL LABWORK LABWORK Chief Complaint CUSTODIAL LAB WOR K CUSTODIAL LABWORK CUSTODIAL LABWORK LABWORK CUSTODIAL LAB WORK Chief Complaint CUSTODIAL LAB WOR K CUSTODIAL LABWORK CUSTODIAL LABWORK LABWORK CUSTODIAL LAB WORK CUSTODIAL LABWORK Chief Complaint CUSTODIAL LABWORK LABWORK CUSTODIAL LAB WORK CUSTODIAL LABWORK CUSTODIAL LABWORK Chief Complaint CUSTODIAL LABWORK CUSTODIAL LAB WORK LABWORK Chief Complaint CUSTODIAL LAB WOR K LABWORK CUSTODIAL LAB WORK LABWORK Chief Complaint CUSTODIAL LAB WOR K LABWORK CUSTODIAL LAB WORK LABWORK LABWORK Chief Complaint CUSTODIAL LAB WOR K LABWORK LABWORK CUSTODIAL LABWORK LABWORK Chief Complaint CUSTODIAL LAB WOR K LABWORK LABWORK CUSTODIAL LABWORK CUSTODIAL LABWORK LABWORK Chief Complaint CUSTODIAL LABWORK LABWORK LABWORK CUSTODIAL LABWORK LABWORK Chief Complaint LABWORK CUSTODIAL LABWORK LABWORK LABWORK Chief Complaint LABWORK CUSTODIAL LABWORK LABWORK LABWORK LABWORK Chief Complaint LABWORK CUSTODIAL LABWORK LABWORK LABWORK LABWORK CUSTODIAL LAB WORK Chief Complaint Admit Date LABWORK November 30, 2024 5:0 0am Chief Complaint Admit Date CUSTODIAL LAB WORK November 23, 2024 9 :18am LABWORK November 30, 2024 5:0 0am Chief Complaint Admit Date CUSTODIAL LAB WORK November 23, 2024 9 :18am LABWORK November 30, 2024 5:0 0am LABWORK December 18, 2024 5:00a m Summary Purpose Family History No Family History Records FoundNo Family History Records FoundNo Family History Records Found Additional Source Comments Reason for Visit (unrecogniz ed section and content) Reason Comments Fever Reason Comments Seizures Fever Reason Onset Date Comments Medication Problem 07/11/2024 Reason Comments Cough Per ambulance pt has had chest congestion and nausea, pt non-verbal and unable to express symptoms Nausea Reason Onset Date Comments Medication Question 11/27/2024 Reason Onset Date Comments Medication Problem 11/28/2024 Ordered Prescriptions (unrec ognized section and content) Prescription Sig Dispensed Refills Start Date End Da te HYDROcodone-acetaminophen (NORCO) 5-325 MG per tabletIndications:Chronic pain syndrome Take 1 tablet by mouth every 8 hours as needed for Pain for up to 3 days. 9 tablet 0 12/02/2020 12/05/2020 Prescription Sig Dispensed Refills Start Date End Da te albuterol (PROVENTIL) (2.5 MG/3ML) 0.083% nebulizer solution Take 3 mLs by nebulization every 4 hours as needed for Wheezing or Shortness of Breath 120 each 3 04/17/2022 cefdinir (OMNICEF) 300 MG capsule Take 1 capsule by mouth every 12 hours for 2 days 4 capsule 0 04/17/2022 04/19/2022 Goals (unrecognized section and content) Goals may be documented in a n alternate sectionGoals may be documented in an alternate sectionGoals may be documented in an alternate sectionGoals may be documented in an alternate sectionGoals may be documented in an alternate sectionGoals may be documented in an alternate sectionGoals may be documented in an alternate sectionGoals may be documented in an alternate sectionGoals may be documented in an alternate sectionGoals may be documented in an alternate sectionGoals may be documented in an alternate sectionGoals may be documented in an alternate sectionGoals may be documented in an alternate sectionGoals may be documented in an alternate sectionGoals may be documented in an alternate sectionGoals may be documented in an alternate sectionGoals may be documented in an alternate sectionGoals may be documented in an alternate sectionGoals may be documented in an alternate sectionGoals may be documented in an alternate sectionGoals may be documented in an alternate sectionGoals may be documented in an alternate sectionGoals may be documented in an alternate sectionGoals may be documented in an alternate sectionGoals may be documented in an alternate sectionGoals may be documented in an alternate sectionGoals may be documented in an alternate sectionGoals may be documented in an alternate sectionGoals may be documented in an alternate sectionGoals may be documented in an alternate sectionGoals may be documented in an alternate sectionGoals may be documented in an alternate sectionGoals may be documented in an alternate sectionGoals may be documented in an alternate sectionGoals may be documented in an alternate sectionGoals may be documented in an alternate sectionGoals may be documented in an alternate sectionGoals may be documented in an alternate sectionGoals may be documented in an alternate section Scheduled Active and Recently Administ ered Medications (unrecognized section and content) Medication Order 04/16/2022 04/17/2022 04/18/2022 ceFAZolin (ANCEF) 2000 mg in dextrose 4 % 100 mL IVPB (premix) (CANCELED) 2,000 mg, IntraVENous, EVERY 8 HOURS, First dose on Sat04/14/22 at 1300, Until Discontinued, Antimicrobial Indications: Bloodstream Infection, Urinary Tract Infection, UTI duration of therapy: 10 days, Suspected Organism(s): E coli 0354 (Stopped - Provider: Nery Aviles RN)0540 (New Bag - Provider: Nery Aviles RN)0700 (Stopped - Provider: Rosita Borrego RN)1236 (New Bag - Provider: Rosita Borrego RN)1323 (Stopped - Provider: Rosita Borrego RN) cefdinir (OMNICEF) capsule 300 mg 300 mg, Oral, EVERY 12 HOURS SCHEDULED (2 times per day), 8 doses, First dose on Sat04/16/22 at 2100, Last dose on Sat04/20/22 at 0900, Antimicrobial Indications: Urinary Tract Infection, UTI duration of therapy: Other, Other Urinary Tract Infection Duration: Another 4 days through 04/20/22 2213 (Given - Provider: Inés Batista RN) 1014 (Given - Provider: Dylan Foss RN)2118 (Given - Provider: Inés Batista RN) 1015 (Given - Provider: Dylan Foss RN)2100 (Due) divalproex (DEPAKOTE) DR tablet 250 mg 250 mg, Oral, 3 TIMES DAILY, First dose on Sat04/11/22 at 1600, Until Discontinued, Do not crush or break. 0840 (Given - Provider: Rosita Borrego RN)1455 (Given - Provider: Rosita Borrego RN)2213 (Given - Provider: Inés Batista RN) 1013 (Given - Provider: Dylan Foss RN)1302 (Given - Provider: Dylan Foss RN)2119 (Given - Provider: Inés Batista, YAMILA) 1016 (Given - Provider: Dylan Foss RN)1613 (Given - Provider: Dylan Foss RN)2100 (Due) enoxaparin (LOVENOX) injection 40 mg 40 mg, SubCUTAneous, DAILY, First dose on Sat04/11/22 at 0900, Until Discontinued, Indication of Use: Prophylaxis-DVT/PE 0840 (Given - Provider: Rosita Borrego RN) 1015 (Given - Provider: Dylan Foss RN) 1015 (Given - Provider: Dylan Foss RN) ethosuximide (ZARONTIN) 250 MG/5ML solution 600 mg 600 mg, Oral, 2 TIMES DAILY, First dose on Sat04/10/22 at 2343, Until Discontinued 0840 (Given - Provider: Rosita Borrego RN)221 (Given - Provider: Inés Batista RN) 1016 (Given - Provider: Dylan Foss RN)2118 (Given - Provider: Inés Batista RN) 101 (Given - Provider: Dylan Foss RN)2100 (Due) levothyroxine (SYNTHROID) tablet 100 mcg 100 mcg, Oral, DAILY, First dose on Sat04/11/22 at 0700, Until Discontinued, Tube feeding (TF) interaction, obtain physician order to manage, recommend holding TF for 30 minutes before and after dose. 0540 (Given - Provider: Nery Aviles RN) 0506 (Given - Provider: Dylan Foss RN) 0547 (Given - Provider: Inés Batista RN) metoclopramide (REGLAN) tablet 10 mg 10 mg, Oral, 2 TIMES DAILY, First dose on Sat04/10/22 at 2343, Until Discontinued 0840 (Given - Provider: Rosita Borrego RN)2212 (Given - Provider: Inés Batista RN) 101 (Given - Provider: Dylan Foss RN)2117 (Given - Provider: Inés Batista RN) 101 (Given - Provider: Dylan Foss RN)2100 (Due) metoprolol tartrate (LOPRESSOR) tablet 100 mg 100 mg, Oral, DAILY, First dose on Sat04/11/22 at 0900, Until Discontinued 0840 (Given - Provider: Rosita Borrego RN) 1014 (Given - Provider: Dylan Foss RN) 1016 (Given - Provider: Dylan Foss RN) ondansetron (ZOFRAN) injection 4 mg 4 mg, IntraVENous, ONCE, 1 dose, On Sat04/10/22 at 2040 QUEtiapine (SEROQUEL XR) extended release tablet 50 mg 50 mg, Oral, 2 TIMES DAILY, First dose on Sat04/10/22 at 2343, Until Discontinued, Do not crush or break. 0840 (Given - Provider: Rosita Borrego RN)2213 (Given - Provider: Inés Batista, YAMILA) 1014 (Given - Provider: Dylan Foss RN)211 (Given - Provider: Inés Batista, YAMILA) 1015 (Given - Provider: Dylan Foss RN)2100 (Due) sodium chloride flush 0.9 % injection 5-40 mL 5-40 mL, IntraVENous, EVERY 12 HOURS SCHEDULED (2 times per day), First dose on Sat04/11/22 at 0900, Until Discontinued, For Line Patency: Peripheral IV = 5 mL; Midline or Central Line = 10 mL/lumen. If following IV push medication, administer flush at same rate as the IV push. Flush volume is determined by type of infusion therapy being given. For non-viscous solutions use: Peripheral IV = 5 mL Midline or Central Line = 10 mL/lumen For viscous solutions (i.e. blood components, parenteral nutrition, contrast media, or after obtaining blood sample) use: Peripheral IV = 10 mL Midline or Central Line = 20 mL/lumen 0850 (Not Given - Provider: Rosita Borrego RN - Reason: Other - Comment: dup)2214 (Not Given - Provider: Inés Batista RN - Reason: Patient/family refused) 1018 (Not Given - Provider: Dylan Foss RN - Reason: Other - Comment: technical issue)195 (Not Given - Provider: Inés Batista RN - Reason: Loss of IV access) 1016 (Not Given - Provider: Dylan Foss RN - Reason: Loss of IV access)2100 (Due) PRN Medication Order 04/16/2022 04/17/2022 04/18/2022 0.9 % sodium chloride infusion IntraVENous, at 5-250 mL/hr, PRN, if patient receiving piggyback infusions and maintenance fluids are not ordered OR KVO fluids to protect IV site / prevent frequent line interruptions/ long duration, Starting on Sat04/11/22 at 0056, For piggyback infusion, administer at same rate as piggyback for a total of 25 mL. Enter 25 mL into dose field and piggyback rate into rate field of order. If piggyback is infusing at a rate less than 100 mL/hr, enter 25 mL into dose field and 100 mL/hr into rate field of order. For KVO fluids, enter rate of 20 mL/hr or less into rate field of order. acetaminophen (TYLENOL) suppository 650 mg(Linked Group 1) 650 mg, Rectal, EVERY 6 HOURS PRN, Starting on Sat04/11/22 at 0056, Until Discontinued, Pain Mild (1-3), Fever, For temp greater than 100.4 F (38 C), Administer if oral route cannot be used. acetaminophen (TYLENOL) tablet 650 mg(Linked Group 1) 650 mg, Oral, EVERY 6 HOURS PRN, Starting on Sat04/11/22 at 0056, Until Discontinued, Pain Mild (1-3), Fever, For temp greater than 100.4 F (38 C), Maximum dose of acetaminophen is 4000 mg from all sources in 24 hours. albuterol (PROVENTIL) nebulizer solution 2.5 mg 2.5 mg, Nebulization, EVERY 4 HOURS PRN, Starting on Sat04/11/22 at 0055, Until Discontinued, Wheezing, Shortness of Breath, Initiate RT Bronchodilator Protocol: Yes - Inpatient Protocol albuterol (PROVENTIL) nebulizer solution 2.5 mg 2.5 mg, Nebulization, EVERY 4 HOURS PRN, Starting on Sat04/11/22 at 0223, Until Discontinued, Wheezing, Initiate RT Bronchodilator Protocol: Yes - Inpatient Protocol hydrOXYzine HCl (ATARAX) tablet 10 mg 10 mg, Oral, 3 TIMES DAILY PRN, Starting on Sat04/10/22 at 2341, Until Discontinued, Itching 0540 (Given - Provider: Nery Aviles RN) ondansetron (ZOFRAN) injection 4 mg(Linked Group 2) 4 mg, IntraVENous, EVERY 6 HOURS PRN, Starting on Sat04/11/22 at 0056, Until Discontinued, Nausea, Vomiting, Administer if oral route cannot be used. ondansetron (ZOFRAN-ODT) disintegrating tablet 4 mg(Linked Group 2) 4 mg, Oral, EVERY 8 HOURS PRN, Starting on Sat04/11/22 at 0056, Until Discontinued, Nausea, Vomiting polyethylene glycol (GLYCOLAX) packet 17 g 17 g, Oral, DAILY PRN, Starting on Sat04/11/22 at 0056, Until Discontinued, Constipation, First line therapy for constipation sodium chloride flush 0.9 % injection 5-40 mL 5-40 mL, IntraVENous, PRN, Starting on Sat04/11/22 at 0056, Until Discontinued, Line Care, After every IV line use, For Line Patency: Peripheral IV = 5 mL; Midline or Central Line = 10 mL/lumen. If following IV push medication, administer flush at same rate as the IV push. Flush volume is determined by type of infusion therapy being given. For non-viscous solutions use: Peripheral IV = 5 mL Midline or Central Line = 10 mL/lumen For viscous solutions (i.e. blood components, parenteral nutrition, contrast media, or after obtaining blood sample) use: Peripheral IV = 10 mL Midline or Central Line = 20 mL/lumen 1017 (Given - Provider: Dylan Foss RN - Comment: technical issue when scanning on OCT. PRN dose given) Linked Groups Order Group 1: acetaminophen (TYLENOL) tablet 650 mgJump to med 650 mg, Oral, EVERY 6 HOURS PRN, Starting on Sat04/11/22 at 0056, Until Discontinued, Pain Mild (1-3), Fever, For temp greater than 100.4 F (38 C)
Maximum dose of acetaminophen is 4000 mg from all sources in 24 hours.
Or acetaminophen (TYLENOL) suppository 650 mgJump to med 650 mg, Rectal, EVERY 6 HOURS PRN, Starting on Sat04/11/22 at 0056, Until Discontinued, Pain Mild (1-3), Fever, For temp greater than 100.4 F (38 C)
Administer if oral route cannot be used.
Group 2: ondansetron (ZOFRAN-ODT) disintegrating tablet 4 mgJump to med 4 mg, Oral, EVERY 8 HOURS PRN, Starting on Sat04/11/22 at 0056, Until Discontinued, Nausea, Vomiting Or ondansetron (ZOFRAN) injection 4 mgJump to med 4 mg, IntraVENous, EVERY 6 HOURS PRN, Starting on Sat04/11/22 at 0056, Until Discontinued, Nausea, Vomiting
Administer if oral route cannot be used.
Care Teams (unrecognized sec tion and content) Team Status: Inactive Member Role Status Dates Wale WHEATLEY Attending Provider Active Team Status: Active Member Role Status Dates Wale WHEATLEY Attending Provider Active Skates Operator Relationship Specialty Start Date End Date Wale Cadena MD [address] [place] [address] PCP - General Internal Medicine 04/12/22 Team Status: Inactive Member Role Status Dates Wale Cadena Attending Provider, Referring Provider Active Team Status: Inactive Member Role Status Dates Wale Cadena Attending Provider Active Team Status: Active Member Role Status Dates Wale Cadena Attending Provider Active Team Status: Inactive Member Role Status Dates Wale WHEATLEY Attending Provider, Referring Provi bora Active Skates Operator Relationship Specialty Start Date End Date Sherrelljose Wale [address] [place] [id number] PCP - General 04/12/22 Skates Operator Relationship Specialty Start Date End Date Wale Cadena [address] [place] [id number] PCP - General 04/12/22 Skates Operator Relationship Specialty Start Date End Date Wale Cadena [address] [place] [id number] PCP - General 04/12/22 Team Status: Active Member Role Status Dates Wale WHEATLEY Attending Provider Active Sta rt: November 23, 2024 Team Status: Inactive Member Role Status Dates Wale WHEATLEY Attending Provider Active Sta rt: November 30, 2024 End: November 30, 2024 Team Status: Active Member Role Status Dates Wale WHEATLEY Attending Provider Active Sta rt: December 18, 2024 Team Status: Inactive Member Role Status Dates Wale WHEATLEY Attending Provider Active Sta rt: November 23, 2024 End: November 23, 2024 Wale WHEATLEY Referring Provider Active Sta rt: November 23, 2024 End: November 23, 2024 Team Status: Inactive Member Role Status Dates Wale WHEATLEY Attending Provider Active Sta rt: December 18, 2024 End: December 18, 2024 INFORMATION SOURCE (unrecogn ized section and content) DATE CREATED AUTHOR 05/02/2022 [facility] DATE CREATED AUTHOR AUTHOR'S ORGANIZ ATION 11/29/2024 [facility] DATE CREATED AUTHOR AUTHOR'S ORGANIZ ATION 01/15/2025 [facility] FOR RECORDS PERTAINING TO PATIENTS WHO ARE OR HAVE BEEN ENROLLED IN A CHEMICAL DEPENDENCY/SUBSTANCEABUSE PROGRAM, SOME INFORMATION MAY BE OMITTED. This clinical summary was aggregated from multiple sources. Caution should be exercised in using it in the provision of clinical care. This summary normalizes information from multiple sources, and as a consequence, information in this document may materially change the coding, format and clinical context of patient data. In addition, data may be omitted in some cases. CLINICAL DECISIONS SHOULD BE BASED ON THE PRIMARY CLINICAL RECORDS. [facility]. provides no warranty or guarantee of the accuracy or completeness of information in this document.
== END ==
LOC: OLS.ACW300 05:00
PROVIDERS: Visit Provider Internal Medicine
DX: F72 Severe intellectual disabilities (principal); A41.9 Sepsis, unspecified organism; F79 Unspecified intellectual disabilities; R26.81 Unsteadiness on feet; R29.3 Abnormal posture; R56.9 Unspecified convulsions; R41.841 Cognitive communication deficit
CPT/HCPCS: 36415; 84443

== ENCOUNTER → 2025-03-01 05:00 | Outpatient (REF) | payer MEDICARE, MEDICAID, SELFPAY ==
[2025-03-01 09:30] LABS: Valproic Acid (Depakene) Level 21 ug/mL (50-100)
[2025-03-03 04:07] LABS: Zarontin Level 30 ug/mL (40-100)
== END ==
LOC: OLS.ACW300 05:00
PROVIDERS: Visit Provider Family Medicine
DX: F72 Severe intellectual disabilities (principal); A41.9 Sepsis, unspecified organism; R26.81 Unsteadiness on feet
CPT/HCPCS: 36415; 80164; 80168

== ENCOUNTER → 2025-06-01 05:00 | Outpatient (REF) | payer MEDICARE, MEDICAID, SELFPAY ==
--- OUTSIDE RECORDS SUMMARY | 2025-06-01 03:48 | XMS RPT_ITS | CCD ---
Author Organization [facility] Care Team Providers Care Manager Film Name Role Phone Unavailable Primary Care Provider Wale Wheat MD Primary Care Provider Wale Cadena Referring Unavailable MOSHE CASTANEDA Attending Unavailable Wale Cadena Primary Care Unavailable Wale Cadena Primary Care Provider Wale Maier Attending Provider Unavailab mehdi KatsaWale Garcia Referring Provider Unavailab WALE Cervantes Primary Care Unavailable NILO KENNEDY Attending Unavailable Katsaros OLS, Wale Referring Unavailable Katsaros OLS, Wale Attending Unavailable Katsaros OLS, Wale Attending Unavailable Katsaros OLS, Wale Referring Unavailable Katsaros OLS, Wale Attending Unavailable Katsaros OLS, Wale Attending Unavailable Katsaros OLS, Wale Referring Unavailable Katsaros OLS, Wale Attending Unavailable Katsaros OLS, Wale Attending Unavailable Katsaros OLS, Wale Attending Unavailable Bro WHEATLEY, Arden Attending Unavailable Katsaros OLS, Wale Attending Unavailable Bro WHEATLEY, Arden Attending Unavailable Katsaros OLS, Wale Attending Unavailable Bro DIONI, Arden Attending Unavailable Bro OLS, Arden Attending Unavailable Bro OLS, Arden Attending Unavailable Katsaros OLS, Wale Attending Unavailable Medications Current Medications Medication [...] 1530 busPIRone hydrochloride 10 mg oral tablet (5 sources) take 1 tablet by mouth three [...] IVPB minibag famotidine 20 mg oral tablet (8 sources) Histamine-2 Receptor Antagonist Start: 11-27-2020 take 20 mg by mouth once daily 20 mg, Oral, DAILY, First dose on 11/27/20 at 1530 furosemide 8 mg/ml oral solution (7 sources) Loop Diuretic take 80 mg by [...] 0 Active loratadine 10 mg oral tablet (7 sources) take 1 tablet by mouth once [...] 12.5 mg sertraline 25 mg oral tablet (5 sources) Serotonin Reuptake Inhibitor take 3 tablets by mouth once daily sertraline (Zoloft) 25 MG tablet Take 75 mg by mouth daily. Active therapeutic multivitamin-minerals (Theragran-M) tablet (5 sources) take 1 tablet by mouth once [...] 40 mg ethosuximide 50 mg/ml oral solution (9 sources) Anti-epileptic Agent Start: 11-27-2020 take 600 [...] Itching levothyroxine sodium 0.1 mg oral tablet (9 sources) l-Thyroxine Start: 04-11-2022 take 100 ug [...] extended (mini-bag) metoclopramide 10 mg oral tablet (9 sources) Dopamine-2 Receptor Antagonist Start: 11-27-2020 take 10 mg by mouth twice daily 10 mg, Oral, 2 TIMES DAILY, First dose on Sat04/10/22 at 2343, Until Discontinued metoprolol tartrate 50 mg oral tablet (9 sources) beta-Adrenergic Francheska Start: 04-11-2022 take 100 mg by mouth once daily 100 mg, Oral, DAILY, First dose on Sat04/11/22 at 0900, Until Discontinued Start: 11-29-2020 metoprolol (LO PRESSOR) injection 5 mg take 1 tablet by haritah th once daily metoprolol tartrate (Lopressor) 100 [...] (DEFINITY) injection 1.65 mg polyethylene glycol 3350 [id number] mg powder for oral solution (2 sources) [...] QUEtiapine 50 mg extended release oral tablet (9 sources) Atypical Antipsychotic Start: 11-27-2020 take 50 [...] sodium 250 mg delayed release oral tablet (9 sources) Mood Stabilizer, Anti-epileptic Agent Start: 04-11-2022 take 250 mg by mouth three times daily 250 mg, Oral, 3 TIMES DAILY, First dose on Sat04/11/22 at 1600, Until Discontinued Do not crush or break. Start: 11-29-2020 valproic acid (DEPACON) 250 MG/5ML oral solution 250 mg take 1 tablet by haritha three times daily divalproex (Depakote) 125 MG EC tablet Take 125 mg by mouth 3 times daily. Active take 2 tablets by mo ksh three times daily divalproex (DEPAKOTE) 125 MG [...] intellectual disabilities; Translations: [Unspecified intellectual disabilities] Onset: 01-01-2025 Chronic Epilepsy; convulsions (2 sources) Epilepsy, unspecified, not intractable, without status epilepticus; Translations: [Epilepsy, unsp, not intractable, without status epilepticus] Onset: 04-11-2022 Chronic Epilepsy; convulsions (2 sources) Unspecified convulsions; Translations: [Unspecified convulsions] Onset: 01-01-2025 Episodic Esophageal disorders (2 sources) Gastro-esophageal reflux [...] sources) Abnormal posture; Translations: [Abnormal posture] Onset: 01-01-2025 Episodic Other ear and sense organ disorders [...] communication deficit; Translations: [Cognitive communication deficit] Onset: 01-01-2025 Chronic Other nervous system disorders (2 sources) Unsteadiness on feet; Translations: [Unsteadiness on feet] Onset: 01-01-2025 Episodic Other nutritional; endocrine; and metabolic disorders (2 sources) Obesity, unspecified; Translations: [Obesity, unspecified] Onset: 04-11-2022 Chronic Other nutritional; endocrine; and metabolic disorders (2 sources) Body mass index (BMI) 30.0-30.9, adult; Translations: [Body mass index [BMI] 30.0-30.9, adult] Onset: 04-11-2022 Chronic Peripheral and visceral atherosclerosis (2 sources) Peripheral [...] Onset: 04-11-2022 Episodic Septicemia (except in labor) (15 sources) Infectious agent in bloodstream; Translations: [Sepsis, [...] te Episodic/Chronic Other aftercare (1 source) Other custodial (current) drug therapy; Translations: [Other terminal manager (current) drug therapy] Onset: 08-07-2024 Episodic Other connective tissue disease (2 sources) Muscle weakness (generalized); Translations: [Muscle weakness (generalized)] Onset: 04-11-2024 Episodic Other upper respiratory infections (4 sources) Viral upper respiratory tract infection; Translations: [Acute upper respiratory infection, unspecified] Onset: 10-21-2024 10-21-2024 Episodic Unclassified (1 source) Contact with and (suspected) exposure to COVID-19; Translations: [Contact with and (suspected) exposure to COVID-19] Onset: 04-11-2022 Unclassified (1 source) Acute cough; Translations: [Acute cough] Onset: 10-21-2024 Urinary tract infections (12 sources) Urinary tract infectious disease; Translations: [Urinary tract infection, site not specified] Onset: 11-27-2020 Episodic Results Test Name Value Interpretation Reference Range Facility 36on 02-17-2025 36 S: Yenn[facility] DR[facility]CO[facility] with [facility] nurse regarding medication refill. B: Onset of symptoms/concern 02/17/2025. A: Yennifer DRISCOLL from [facility] requesting a medication refill for Hydrocodone 5-325 MG to patient's pharmacy. Yennifer reports that patient has 2-3 tablets left. Allergies and pharmacy verified. R: Advised Yennifer that message will be sent to office for follow up regarding medication refill request, she verbalized understanding. No further needs at this time. Yennifer instructed to call back with new or worsening symptoms. Reason for Disposition Caller requesting a CONTROLLED substance prescription refill (e.g., narcotics, ADHD medicines) Protocols used: Medication Refill and Renewal [facility] TSH DL <= 0.005 mIU/L QnOrde red By: Wale Cadena on 12-18-2024 TSH Qn 3.040 uIU/mL 0.300-4.200 [facility] Serum or plasma valproate me asurement (mass/volume)Ordered By: Wale Cadena on 11-30-2024 Valproate [Mass/Vol] 35 ug/mL Low 50-100 [facility] Comment on above: Valproic Acid concen trations >100 ug/mL are potentially toxic. 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 R: Page to Dr. Cadena and he will call the ENTRY LEVEL TRUCK DRIVER now. Reason for Disposition Caller has URGENT medicine question about med that PCP or specialist prescribed and triager unable to answer question Protocols used: Medication Question [facility] 36[facility] 11-27-2024 36 S: Shyanne with [facility] spoke with [facility] nurse regarding medication interaction B: Onset of symptoms/concern n/a A: Patient prescribed IV imipenem, supposed to start tonight. Pharmacy called [facility] and stated that there is an interaction with this medication with Depakote. May increase the likeliness of seizures. R: Paged Dr Cadena with above message from [facility] and Shyanne with [facility] #[phone]. Dr Cadena called [facility]. No further orders at this time. Reason for Disposition [1] Caller has URGENT medicine question about med that PCP or specialist prescribed AND [2] triager unable to answer question Protocols used: Medication Question Megt[facility]UTXY[facility] Bilirubin Test strip Ql (U)O rdered By: Wale Cadena on 11-23-2024 Bilirubin Ql (U) Negative Negative [facility] Ketones Test strip Ql (U)Ord ered By: Wale Cadena on 11-23-2024 Ketones Ql (U) Negative Negative [facility] Nitrite Test strip Ql (U)Ord ered By: Wale Cadena on 11-23-2024 Nitrite Ql (U) Negative Negative [facility] Protein Test strip Ql (U)Ord ered By: Wale Cadena on 11-23-2024 Protein Ql (U) Negative Negative [facility] Urine clarityOrdered By: Meggan Cadena on 11-23-2024 Clarity (U) Clear Clear [facility] Urine color determinationOrd ered By: Wale Cadena on 11-23-2024 Color (U) Yellow Yellow [facility] Urine cultureOrdered By: Meggan Cadena on 11-23-2024 Bacteria identified Cx Nom (U) ESBL Escherichia coli Abnormal [facility] Urine glucose detectionOrder ed By: Wale Cadena on 11-23-2024 Glucose Ql (U) Normal mg/dl Normal [facility] Urine leukocyte esterase det ection by dipstickOrdered By: Wale Cadena on 11-23-2024 Leukocyte esterase Test strip Ql (U) 500 /ul High Negative [facility] Urine pHOrdered By: Wale ulloa on 11-23-2024 pH (U) 7.0 [pH] 5.0 - 8.0 [facility] Urine specific gravity measu rementOrdered By: Wale Cadena on 11-23-2024 Specific gravity (U) [Rel density] 1.010 1.002-1.030 [facility] Urine urobilinogen measureme ntOrdered By: Wale Cadena on 11-23-2024 Urobilinogen Ql (U) Normal mg/dl Normal [facility] BASIC METABOLIC PANELon 10-03 Anion gap [Moles/Vol] 7 mmol/L Normal 3-13 [facility] Comment on above: Performed By: #### L [id number], [id number] #### Card Cutter: RAUQEL SILVERIO ([id number]) [facility] [address] [place] [address] Calcium [Mass/Vol] 9.2 mg/dL Normal 8.8-10.0 [facility] Comment on above: Performed By: #### L [id number], [id number] #### Card Cutter: RAQUEL SILVERIO ([id number]) [facility] (SWRLAB) [address] [place] [address] [place] Chloride [Moles/Vol] 101 mmol/L Normal 98-107 [facility] Comment on above: Performed By: #### L [id number], [id number] #### Card Cutter: RAQUEL SILVERIO ([id number]) [facility] (SWRLAB) [address] [place] [address] [place] CO2 [Moles/Vol] 27 mmol/L Normal 23-31 [facility] Comment on above: Performed By: #### L [id number], [id number] #### Card Cutter: RAQUEL SILVERIO ([id number]) [facility] (SWRLAB) [address] [place] [address] [place] Creatinine [Mass/Vol] 0.82 mg/dL Normal 0.57-1.11 [facility] Comment on above: Performed By: #### L [id number], [id number] #### Card Cutter: RAQUEL SILVERIO ([id number]) [facility] (SWRLAB) [address] [place] [address] [place] GLOMERULAR FILTRATION RATE ML/MIN/1.73 SQ M.PREDICTED 74.7 mL/min/1.73m*2 Normal >60.0 [facility] Comment on above: Result Comment: Calc ulation based on the Chronic Kidney Disease Epidemiology Collaboration (CKD-EPI) equation refit without adjustment for race Performed By: #### L [id number], [id number] #### Card Cutter: RAQUEL SILVERIO ([id number]) [facility] (SWRLAB) [address] [place] [address] [place] Glucose [Mass/Vol] 96 mg/dL Normal 82-115 [facility] Comment on above: Performed By: #### L [id number], [id number] #### Card Cutter: RAQUEL SILVERIO ([id number]) [facility] (SWRLAB) [address] Potassium [Moles/Vol] 4.8 mmol/L Normal 3.5-5.1 [facility] Comment on above: Result Comment: [facility] potassium values may be up to 0.5 mmol/L lower than serum values. Performed By: #### L [id number], [id number] #### Card Cutter: RAQUEL SILVERIO ([id number]) [facility] (SWRLAB) [address] [place] [address] Sodium [Moles/Vol] 135 mmol/L Low 136-145 [facility] Comment on above: Performed By: #### L [id number], [id number] #### Card Cutter: RAQUEL SILVERIO ([id number]) [facility] (SWRLAB) [address] [place] [address] Urea nitrogen [Mass/Vol] 31 mg/dL High 9-23 [facility] Comment on above: Performed By: #### L [id number], [id number] #### Card Cutter: RAQUEL SILVERIO ([id number]) [facility] (SWRLAB) [address] [place] [address] Basic metabolic 1998 panelon 10-21-2024 Anion gap [Moles/Vol] 7 mmol/L 3 - 13 mmol/L [facility] Calcium [Mass/Vol] 9.2 mg/dL 8.8 - 10. 0 mg/dL [facility] Chloride [Moles/Vol] 101 mmol/L 98 - 10 7 mmol/L [facility] CO2 [Moles/Vol] 27 mmol/L 23 - 31 mmol/L [facility] Creatinine [Mass/Vol] 0.82 mg/dL 0.57 - 1.11 mg/dL [facility] GFR/1.73 sq M.predicted (S/P/Bld) [Vol rate/Area] 74.7 mL/min - PINF [facility] Comment on above: Calculation based on the Chronic Kidney Disease Epidemiology Collaboration (CKD-EPI) equation refit without adjustment for race Glucose [Mass/Vol] 96 mg/dL 82 - 115 mg/dL [facility] Interpretation and review of laboratory results Abnormal [facility] Potassium [Moles/Vol] 4.8 mmol/L 3.5 - 5.1 mmol/L [facility] Comment on above: Plasma potassium ondina ues may be up to 0.5 mmol/L lower than serum values. Sodium [Moles/Vol] 135 mmol/L Low 136 - 145 mmol/L [facility] Urea nitrogen [Mass/Vol] 31 mg/dL High 9 - 23 mg/d L [facility] CBC W Auto Differential pane l (Bld)Ordered By: Davis Berg on 10-21-2024 Basophils (Bld) [#/Vol] 0.1 10*3/uL 0.0 - 0.2 10*3/uL [facility] Basophils/100 WBC (Bld) 0.9 % 0.0 - 2.0 % [facility] Eosinophils (Bld) [#/Vol] 0.4 10*3/uL 0.0 - 0.5 10*3/uL [facility] Eosinophils/100 WBC (Bld) 4 % 0.0 - 6.0 % [facility] Erythrocyte distribution width (RBC) [Ratio] 18.2 % High 11.5 - 15.0 % [facility] Hematocrit (Bld) [Volume fraction] 34.8 % Low 35.0 - 47.0 % [facility] Hemoglobin (Bld) [Mass/Vol] 11 g/dL Low 11.7 - 16.0 g/dL [facility] Immature granulocytes (Bld) [#/Vol] 0 10*3/uL NINF - 0.1 10*3/uL [facility] Immature granulocytes/100 WBC (Bld) 0.3 % 0.0 - 2.0 % [facility] Interpretation and review of laboratory results Abnormal [facility] Lymphocytes (Bld) [#/Vol] 2.8 10*3/uL 1.0 - 4.3 10*3/uL [facility] Lymphocytes/100 WBC (Bld) 32.1 % 15.0 - 45.0 % [facility] MCH (RBC) [Entitic mass] 24.9 pg Low 26. 0 - 34.0 pg [facility] MCHC (RBC) [Mass/Vol] 31.6 % 30.5 - 36.0 % [facility] MCV (RBC) [Entitic vol] 78.9 fL 77.0 - 99.0 fL [facility] Monocytes (Bld) [#/Vol] 1.1 10*3/uL High 0.0 - 0.9 10*3/uL [facility] Monocytes/100 WBC (Bld) 12.4 % 5.0 - 13.0 % [facility] Neutrophils (Bld) [#/Vol] 4.4 10*3/uL 1.8 - 7.5 10*3/uL [facility] Neutrophils/100 WBC (Bld) 50.3 % 38.0 - 82.0 % [facility] Nucleated RBC/100 WBC (Bld) [Ratio] 0 % [facility] Platelet mean volume (Bld) [Entitic vol] 9.4 fL 9.0 - 12.7 fL [facility] Comment on above: MPV is a calculated measurement using platelet volume ratio Platelets (Bld) [#/Vol] 321 10*3/uL 140 - 440 10*3/uL [facility] RBC (Bld) [#/Vol] 4.41 10*6/uL 3.80 - 5.2 0 10*6/uL [facility] WBC (Bld) [#/Vol] 8.8 10*3/uL 3.6 - 10.7 10*3/uL [facility] CBC WITH AUTO DIFFERENTIALon 10-21-2024 Basophils (Bld) [#/Vol] 0.1 10*3/uL Normal 0.0-0.2 [facility] Comment on above: Performed By: #### L [id number] #### Card Cutter: RAQUEL SILVERIO ([id number]) [facility] (SWRLAB) [address] [place] [address] Basophils/100 WBC (Bld) 0.9 % Normal 0.0-2.0 [facility] Comment on above: Performed By: #### L [id number] #### Card Cutter: ARQUEL SILVERIO ([id number]) [facility] (SWRLAB) [address] [place] [address] Eosinophils (Bld) [#/Vol] 0.4 10*3/uL Normal 0.0-0.5 [facility] Comment on above: Performed By: #### L [id number] #### Card Cutter: RAQUEL SILVERIO ([id number]) [facility] (SWRLAB) [address] [place] [address] Eosinophils/100 WBC (Bld) 4.0 % Normal 0.0-6.0 [facility] Comment on above: Performed By: #### L [id number] #### Card Cutter: RAQUEL SILVERIO ([id number]) [facility] (SWRLAB) [address] [place] [address] Erythrocyte distribution width (RBC) [Ratio] 18.2 % High 11.5-15.0 [facility] Comment on above: Performed By: #### L [id number] #### Card Cutter: RAQUEL SILVERIO ([id number]) [facility] (SWRLAB) [address] [place] [address] Hematocrit (Bld) [Volume fraction] 34.8 % Low 35.0-47.0 [facility] Comment on above: Performed By: #### L [id number] #### Card Cutter: RAQUEL SILVERIO ([id number]) [facility] (SWRLAB) [address] [place] [address] Hemoglobin (Bld) [Mass/Vol] 11.0 g/dL Low 11.7-16.0 [facility] Comment on above: Performed By: #### L [id number] #### Card Cutter: RAQUEL SILVERIO ([id number]) [facility] (SWRLAB) [address] [place] [address] IMMATURE GRANS % 0.3 % Normal 0.0-2.0 [facility] Comment on above: Performed By: #### L [id number] #### Card Cutter: RAQUEL SILVERIO ([id number]) [facility] (SWRLAB) [address] [place] [address] IMMATURE GRANS ABSOLUTE 0.0 10*3/uL Normal <0.1 [facility] Comment on above: Performed By: #### L [id number] #### Card Cutter: RAQUEL SILVERIO ([id number]) [facility] (SWRLAB) [address] [place] [address] [place] Lymphocytes (Bld) [#/Vol] 2.8 10*3/uL Normal 1.0-4.3 [facility] Comment on above: Performed By: #### L [id number] #### Card Cutter: RAQUEL SILVERIO ([id number]) [facility] (SWRLAB) [address] [place] [address] Lymphocytes/100 WBC (Bld) 32.1 % Normal 15.0-45.0 [facility] Comment on above: Performed By: #### L [id number] #### Card Cutter: RAQUEL SILVERIO ([id number]) [facility] (SWRLAB) [address] [place] [address] MCH (RBC) [Entitic mass] 24.9 pg Low 26.0-34.0 [facility] Comment on above: Performed By: #### L [id number] #### Card Cutter: RAQUEL SILVERIO ([id number]) [facility] (SWRLAB) [address] [place] [address] MCHC 31.6 % Normal 30.5-36.0 [facility] Comment on above: Performed By: #### L [id number] #### Card Cutter: RAQUEL SILVERIO ([id number]) [facility] (SWRLAB) [address] [place] [address] MCV (RBC) [Entitic vol] 78.9 fL Normal 77.0-99.0 [facility] Comment on above: Performed By: #### L [id number] #### Card Cutter: RAQUEL SILVERIO ([id number]) [facility] (SWRLAB) [address] [place] [address] [place] Monocytes (Bld) [#/Vol] 1.1 10*3/uL High 0.0-0.9 [facility] Comment on above: Performed By: #### L [id number] #### Card Cutter: RAQUEL SILVERIO ([id number]) [facility] (SWRLAB) [address] [place] [address] [place] Monocytes/100 WBC (Bld) 12.4 % Normal 5.0-13.0 [facility] Comment on above: Performed By: #### L [id number] #### Card Cutter: RAQUEL SILVERIO ([id number]) [facility] (SWRLAB) [address] [place] [address] [place] NEUTROPHILS ABSOLUTE 4.4 10*3/uL Normal 1.8-7.5 [facility] Comment on above: Performed By: #### L [id number] #### Card Cutter: RAQUEL SILVERIO ([id number]) [facility] (SWRLAB) [address] [place] [address] [place] Neutrophils/100 WBC (Bld) 50.3 % Normal 38.0-82.0 [facility] Comment on above: Performed By: #### L [id number] #### Card Cutter: RAQUEL SILVERIO ([id number]) [facility] (SWRLAB) [address] [place] [address] [place] NRBC 0.0 /100 WBCs Normal 0.0-2.0 [facility] Comment on above: Performed By: #### L [id number] #### Card Cutter: RAQUEL SILVERIO ([id number]) [facility] (SWRLAB) [address] [place] [address] Platelet mean volume (Bld) [Entitic vol] 9.4 fL Normal 9.0-12.7 [facility] Comment on above: Result Comment: MPV is a calculated measurement using platelet volume ratio Performed By: #### L [id number] #### Card Cutter: RAQUEL SILVREIO ([id number]) [facility] (SWRLAB) [address] [place] [address] [place] Platelets (Bld) [#/Vol] 321 10*3/uL Normal 140-440 [facility] Comment on above: Performed By: #### L [id number] #### Card Cutter: RAQUEL SILVERIO ([id number]) [facility] (SWRLAB) [address] [place] [address] [place] RBC (Bld) [#/Vol] 4.41 10*6/uL Normal 3.80-5.20 [facility] Comment on above: Performed By: #### L [id number] #### Card Cutter: RAQUEL SILVERIO ([id number]) [facility] (SWRLAB) [address] [place] [address] [place] WBC (Bld) [#/Vol] 8.8 10*3/uL Normal 3.6-10.7 [facility] Comment on above: Performed By: #### L [id number] #### Card Cutter: RAQUEL SILVERIO ([id number]) [facility] (SWRLAB) [address] [place] [address] [place] COVID-19, Flu A/B, and RSV C omboon 10-21-2024 Interpretation and review of laboratory results Normal [facility] ED Nursing Noteon 10-21-2024 ED Nursing Note Gave report and discharge instructions to Álvaro bo. Pt leaves ED in ambulance. Normal [facility] ED Nursing Note Called report to Lilia at [facility]. Normal [facility] ED Provider Noteon ED Provider Note EMERGENCY [...] She is sent to us from her residential because of increased cough, sneezing, congestion. Patient [...] Platelets 321 (more content not included)... Normal [facility] Laboratory - Chemistry and C hemistry - challengeon 10-21-2024 Magnesium [Mass/Vol] 2.1 mg/dL 1.6 - 2 .6 mg/dL [facility] Laboratory - Microbiology an d Antimicrobial susceptibilityon 10-21-2024 FLUAV RNA VICKI+probe Ql (Resp) Not detected Not Detected [facility] FLUBV RNA VICKI+probe Ql (Resp) Not detected Not Detected [facility] RSV RNA VICKI+probe Ql (Resp) Not detected Not Detected [facility] SARS-CoV-2 (COVID-19) RNA VICKI+probe Ql (Resp) Not detected Not Detected [facility] SARS-CoV-2 (COVID-19) RNA VICKI+probe Ql (Unsp spec) Methodology: real-time, RT-PCR The SARS-CoV-2, Flu A/B, and RSV Combo assay is intended for in vitro diagnostic use under the FDA Emergency Use Authorization (EUA). This test has not been FDA cleared or approved. In compliance with this authorization, please visit www.fda.gov/media/1 48893/download or www.fda.gov/media/0 71516/download to access the applicable information sheets. [facility] MAGNESIUMon 10-21-2024 Magnesium [Mass/Vol] 2.1 mg/dL Normal 1.6-2.6 [facility] Comment on above: Result Comment: JOHN Constantino COMMENTS: Higher values can be expected in females during menses. Performed By: #### L [id number], [id number] #### Card Cutter: RAQUEL SILVERIO ([id number]) [facility] ([facility]) [address] [place] [address] Magnesium [Mass/Vol]on 10-21 Interpretation and review of laboratory results Normal [facility] Higher values can be expected in females during menses. [facility] No Panel Informationon 10-21 [facility] SARS-COV-2, FLU A/B, AND RSV COMBOon 10-21-2024 [...] compliance with this authorization, please visit www.fda.gov/media/ 29983/download or www.fda.gov/media/ 37893/download to access the applicable information sheets. Normal [facility] Comment on above: Performed By: #### L [id number] ####Card Cutter: RAQUEL SILVERIO ([id number])[facility] ([facility])[address] [place] [address] XR Chest Single viewon 10-21 No evidence of an acute cardiopulmonary abnormality. Report Dictated on Electronically Signed By: Arden Roblero MD Electronically Signed Date/Time: 10/21/2024 2:42 PM EDT [facility] Patient Name: UBALDO ARANGO : 1950 [...] midlung is most likely chronic. Bones: Unremarkable [facility] Arden Roblero MD - 10/21/2024 Patient [...] Electronically Signed Date/Time: 10/21/2024 2:42 PM EDT [facility] Radiology Study observation (narrative) [facility] XR Chest Single viewOrdered By: Arden Roblero on 10-21-2024 [facility] [employer] Work Phone: [phone] 07-11-2024 36 S: Barb, Nurse at [facility] [phone] spoke with [facility] nurse regarding medication problem B: Onset of symptoms/concern 07/11/24 A: [facility] patient needs refill of Hydrocodone 5/325 mg one by mouth daily. [facility] pharmacy is [facility] ([facility]) R: Advised Barb that medication is a narcotic and will have to wait until office is open. Barb understands care advice. No further needs at this time. Barb instructed to call back with new or worsening symptoms. Reason for Disposition Caller requesting a CONTROLLED substance prescription refill (e.g., narcotics, ADHD medicines) Protocols used: Medication Refill and Renewal [id number] Normal [facility] Basophil percentageOrdered B y: Wale Cadena on 10-24-2023 Bilirubin [Mass/Vol] 0.20 mg/dL 0.20-1.00 [facility] Comment on above: For patients on eltr ombopag therapy, use of Dimension [place] TBIL is not recommended. Chloride [Moles/Vol] 107 mmol/L 98-107 [facility] Cholesterol [Mass/Vol] 195 mg/dL <200 [facility] Comment on above: <200 mg/dL Desirable 200-240 mg/dL Borderline >240 mg/dL High Risk Glucose [Mass/Vol] 84 mg/dL 74-106 [facility] Hemoglobin (Bld) [Mass/Vol] 11.9 g/dL 12.0-15.0 [facility] Potassium [Moles/Vol] 4.5 mmol/L 3.5-5.1 [facility] Protein [Mass/Vol] 7.3 g/dL 6.4-8.2 [facility] Sodium [Moles/Vol] 138 mmol/L 136-145 [facility] Triglyceride [Mass/Vol] 247 mg/dL <199 [facility] Comment on above: The drugs N-Acetylcy steine and Metamizole may falsely depress this assay.Serum Triglycerides Reference Interval Normal <150 mg/dL Borderline high 150 - 199 mg/dL High 200 - 499 mg/dL Very High > or = 500 mg/dL WBC (Bld) [#/Vol] 6.8 10*3/uL 4.4-11.0 [facility] Determination of erythrocyte mean corpuscular volume (MCV)Ordered By: Wale Cadena on 10-24-2023 MCV (RBC) [Entitic vol] 88.3 fL 81-99 [facility] Erythrocyte distribution wid th ratioOrdered By: Wale Cadena on 10-24-2023 Erythrocyte distribution width (RBC) [Ratio] 16.3 % 11.6-14.6 [facility] Erythrocyte distribution wid th standard deviationOrdered By: Wale Cadena on 10-24-2023 Erythrocyte distribution width (RBC) [Entitic vol] 52.7 fL 35.1-43.9 [facility] Hematocrit Auto (Bld) [Volum e fraction]Ordered By: Wale Cadena on 10-24-2023 Hematocrit (Bld) [Volume fraction] 37.0 % 37-47 [facility] Laboratory - Chemistry and C hemistry - challengeOrdered By: Wale Cadena on 10-24-2023 Albumin/Globulin [Mass ratio] 0.7 {ratio} 0.9-2.4 [facility] ALP [Catalytic activity/Vol] 62 U/L 45-117 [facility] ALT [Catalytic activity/Vol] 12 U/L 13-56 [facility] Cholesterol in HDL [Mass/Vol] 42 mg/dL >40 [facility] Comment on above: The drugs N-Acetylcy steine and Metamizole may falsely depress this assay. Reference Range HDL <40 mg/dL Low HDL Cholesterol HDL >or= 60 mg/dL High HDL Cholesterol Cholesterol in LDL [Mass/Vol] 104 mg/dL 0-130 [facility] CO2 [Moles/Vol] 26.0 mmol/L 21.0-32.0 [facility] Globulin (S) [Mass/Vol] 4.3 g/dL 2.2-4.2 [facility] Urea nitrogen/Creatinine [Mass ratio] 40.4 mg/mg 10-20 [facility] Laboratory - Hematology and Cell countsOrdered By: Wale Cadena on 10-24-2023 MCH (RBC) [Entitic mass] 28.4 pg 27.0-32.0 [facility] MCHC (RBC) [Mass/Vol] 32.2 g/dL 32-36 [facility] Platelet mean volume (Bld) [Entitic vol] 10.1 fL 6.2-12.0 [facility] Platelets (Bld) [#/Vol] 336 10*3/uL 150-450 [facility] No Panel InformationOrdered By: Wale Cadena on 10-24-2023 Estimated GFR (MDRD) Amer 91 mL/min >60 [facility] Comment on above: GFR Calc Estimated GFR (MDRD) Non-Af Amer 75 mL/min >60 [facility] Comment on above: Non- GFR Calc VLDL Cholesterol 49 mg/dL 5-40 [facility] RBC Auto (Bld) [#/Vol]Ordere d By: Wale Cadena on 10-24-2023 RBC (Bld) [#/Vol] 4.19 10*6/uL 4.2-5.4 [facility] Serum or plasma calcium love urement (mass/volume)Ordered By: Wale Cadena on 10-24-2023 Calcium [Mass/Vol] 9.0 mg/dL 8.5-10.1 [facility] Serum or plasma creatinine m easurement (mass/volume)Ordered By: Wale Cadena on 10-24-2023 Creatinine [Mass/Vol] 0.79 mg/dL 0.55-1.02 [facility] Comment on above: The validity of the calculated GFR & GFRAA in patients over 70 years has not been determined. Clinical correlation is essential. Serum or plasma urea nitroge n measurement (mass/volume)Ordered By: Wale Cadena on 10-24-2023 Urea nitrogen [Mass/Vol] 32 mg/dL 7-18 [facility] Thin prep Papanicolaou smear with manual screeningOrdered By: Wale Cadena on 10-24-2023 Thin prep Papanicolaou smear with manual screening 3.0 g/dL 3.2-5.0 [facility] Thin prep Papanicolaou smear with manual screening 17 U/L 15-37 [facility] Thin prep Papanicolaou smear with manual screening 5 5-15 [facility] No Panel InformationOrdered By: Wale Cadena on 09-27-2023 Valproic Acid (Depakene) Level 45 ug/mL 50-100 [facility] Basophil percentageOrdered B y: Wale Cadena on 09-20-2023 Cholesterol [Mass/Vol] 211 mg/dL <200 [facility] [place] Comment on above: <200 mg/dL Desirable 200-240 mg/dL Borderline >240 mg/dL High Risk Triglyceride [Mass/Vol] 291 mg/dL <199 [facility] Comment on above: The drugs N-Acetylcy steine and Metamizole may falsely depress this assay.Serum Triglycerides Reference Interval Normal <150 mg/dL Borderline high 150 - 199 mg/dL High 200 - 499 mg/dL Very High > or = 500 mg/dL Laboratory - Chemistry and C hemistry - challengeOrdered By: Wale Cadena on 09-20-2023 Cholesterol in HDL [Mass/Vol] 46 mg/dL >40 [facility] Comment on above: The drugs N-Acetylcy steine and Metamizole may falsely depress this assay. Reference Range HDL <40 mg/dL Low HDL Cholesterol HDL >or= 60 mg/dL High HDL Cholesterol Cholesterol in LDL [Mass/Vol] 107 mg/dL 0-130 [facility] No Panel InformationOrdered By: Wale Cadena on 09-20-2023 VLDL Cholesterol 58 mg/dL 5-40 [facility] Whole blood hemoglobin A1c/t otal hemoglobin ratio (mass fraction)Ordered By: Wale Cadena on 09-20-2023 HbA1c (Bld) [Mass fraction] 5.5 % 3.8-5.6 [facility] Comment on above: Normal < 5.7 % Predi abetic 5.7 - 6.4 % Diabetic >or= 6.5 % Please note range changes. No Panel InformationOrdered By: Wale Cadena on 08-29-2023 Valproic Acid (Depakene) Level 11 ug/mL 50-100 [facility] Basophil percentageOrdered B y: Wale Cadena on 08-26-2023 Bilirubin [Mass/Vol] 0.20 mg/dL 0.20-1.00 [facility] Comment on above: For patients on eltr ombopag therapy, use of Dimension [place] TBIL is not recommended. Chloride [Moles/Vol] 105 mmol/L 98-107 [facility] Glucose [Mass/Vol] 77 mg/dL 74-106 [facility] Hemoglobin (Bld) [Mass/Vol] 12.1 g/dL 12.0-15.0 [facility] Potassium [Moles/Vol] 4.0 mmol/L 3.5-5.1 [facility] Protein [Mass/Vol] 7.6 g/dL 6.4-8.2 [facility] Sodium [Moles/Vol] 139 mmol/L 136-145 [facility] WBC (Bld) [#/Vol] 7.3 10*3/uL 4.4-11.0 [facility] Determination of erythrocyte mean corpuscular volume (MCV)Ordered By: Wale Cadena on 08-26-2023 MCV (RBC) [Entitic vol] 87.2 fL 81-99 [facility] Erythrocyte distribution wid th ratioOrdered By: Wale Cadena on 08-26-2023 Erythrocyte distribution width (RBC) [Ratio] 15.7 % 11.6-14.6 [facility] Erythrocyte distribution wid th standard deviationOrdered By: Wale Cadena on 08-26-2023 Erythrocyte distribution width (RBC) [Entitic vol] 49.6 fL 35.1-43.9 [facility] Hematocrit Auto (Bld) [Volum e fraction]Ordered By: Wale Cadena on 08-26-2023 Hematocrit (Bld) [Volume fraction] 38.0 % 37-47 [facility] Laboratory - Chemistry and C hemistry - challengeOrdered By: Wale Cadena on 08-26-2023 Albumin/Globulin [Mass ratio] 0.7 {ratio} 0.9-2.4 [facility] ALP [Catalytic activity/Vol] 69 U/L 45-117 [facility] ALT [Catalytic activity/Vol] 16 U/L 13-56 [facility] CO2 [Moles/Vol] 29.0 mmol/L 21.0-32.0 [facility] Globulin (S) [Mass/Vol] 4.4 g/dL 2.2-4.2 [facility] Urea nitrogen/Creatinine [Mass ratio] 34.8 mg/mg 10-20 [facility] Laboratory - Hematology and Cell countsOrdered By: Wale Cadena on 08-26-2023 MCH (RBC) [Entitic mass] 27.8 pg 27.0-32.0 [facility] MCHC (RBC) [Mass/Vol] 31.8 g/dL 32-36 [facility] Platelets (Bld) [#/Vol] 375 10*3/uL 150-450 [facility] No Panel InformationOrdered By: Wale Cadena on 08-26-2023 Estimated GFR (MDRD) Amer 86 mL/min >60 [facility] Comment on above: GFR Calc Estimated GFR (MDRD) Non-Af Amer 71 mL/min >60 [facility] Comment on above: Non- GFR Calc Platelet mean volume Fredrick-Ec ker (Bld) [Entitic vol]Ordered By: Wale Cadena on 08-26-2023 Platelet mean volume (Bld) [Entitic vol] 9.8 fL 6.2-12.0 [facility] RBC Auto (Bld) [#/Vol]Ordere d By: Wale Cadena on 08-26-2023 RBC (Bld) [#/Vol] 4.36 10*6/uL 4.2-5.4 [facility] Serum or plasma calcium love urement (mass/volume)Ordered By: Wale Cadena on 08-26-2023 Calcium [Mass/Vol] 9.5 mg/dL 8.5-10.1 [facility] Serum or plasma creatinine m easurement (mass/volume)Ordered By: Wale Cadena on 08-26-2023 Creatinine [Mass/Vol] 0.83 mg/dL 0.55-1.02 [facility] Comment on above: The validity of the calculated GFR & GFRAA in patients over 70 years has not been determined. Clinical correlation is essential. Serum or plasma urea nitroge n measurement (mass/volume)Ordered By: Wale Cadena on 08-26-2023 Urea nitrogen [Mass/Vol] 29 mg/dL 7-18 [facility] Thin prep Papanicolaou smear with manual screeningOrdered By: Wale Cadena on 08-26-2023 Thin prep Papanicolaou smear with manual screening 3.2 g/dL 3.2-5.0 [facility] Thin prep Papanicolaou smear with manual screening 12 U/L 15-37 [facility] Thin prep Papanicolaou smear with manual screening 5 5-15 [facility] Basophil percentageOrdered B y: Wale Cadena on 07-31-2023 Basophil percentage 25-50 SEEN /hpf 0-5 [facility] Bilirubin Test strip Ql (U)O rdered By: Wale Cadena on 07-31-2023 Bilirubin Ql (U) Negative Negative [facility] Culture, urineOrdered By: Marcio Smith on 07-31-2023 Bacteria identified Cx Nom (U) ESBL Escherichia coli [facility] Ketones Test strip Ql (U)Ord ered By: Wale Cadena on 07-31-2023 Ketones Ql (U) Negative Negative [facility] Mucus LM Ql (Urine sed)Order ed By: Wale Cadena on 07-31-2023 Mucus Ql (Urine sed) RARE /hpf [facility] Nitrite Test strip Ql (U)Ord ered By: Wale Cadena on 07-31-2023 Nitrite Ql (U) Negative Negative [facility] Protein Test strip Ql (U)Ord ered By: Wale Cadena on 07-31-2023 Protein Ql (U) Negative Negative [facility] Squamous epithelial cells de tection in urine sediment by light microscopyOrdered By: Wale Cadena on 07-31-2023 Epithelial cells.squamous LM Ql (Urine sed) 0-5 SEEN /hpf 5-10 [facility] Urine blood detectionOrdered By: Wlae Cadena on 07-31-2023 RBC Ql (U) 10 /ul Negative [facility] RBC Ql (U) 0-5 SEEN /hpf 0-5 [facility] Urine clarityOrdered By: Meggan Cadena on 07-31-2023 Clarity (U) Sl. Cloudy Clear [facility] Urine color determinationOrd ered By: Wale Cadena on 07-31-2023 Color (U) Yellow Yellow [facility] Urine glucose detectionOrder ed By: Wale Cadena on 07-31-2023 Glucose Ql (U) Normal mg/dl Normal [facility] Urine leukocyte esterase det ection by dipstickOrdered By: Wale Cadena on 07-31-2023 Leukocyte esterase Test strip Ql (U) 500 /ul Negative [facility] Urine pHOrdered By: Wale ulloa on 07-31-2023 pH (U) 6.5 [pH] 5.0 - 8.0 [facility] Urine sediment bacteria coun t by microscopy (number/high power field)Ordered By: Wale Cadena on 07-31-2023 Bacteria LM.HPF (Urine sed) [#/Area] 1 /[HPF] None Seen [facility] Urine specific gravity measu rementOrdered By: Wale Cadena on 07-31-2023 Specific gravity (U) [Rel density] 1.010 1.002-1.030 [facility] Urobilinogen Auto test strip Ql (U)Ordered By: Wale Cadena on 07-31-2023 Urobilinogen Ql (U) Normal mg/dl Normal [facility] Basophil percentageOrdered B y: Wale Cadena on 05-27-2023 Chloride [Moles/Vol] 106 mmol/L 98-107 [facility] Glucose [Mass/Vol] 92 mg/dL 74-106 [facility] Potassium [Moles/Vol] 4.6 mmol/L 3.5-5.1 [facility] Sodium [Moles/Vol] 138 mmol/L 136-145 [facility] WBC (Bld) [#/Vol] 7.1 10*3/uL 4.4-11.0 [facility] Blood erythrocytes count (nu mber/volume)Ordered By: Wale Cadena on 05-27-2023 RBC (Bld) [#/Vol] 4.33 10*6/uL 4.2-5.4 [facility] Blood hemoglobin measurement (mass/volume)Ordered By: Wale Cadena on 05-27-2023 Hemoglobin (Bld) [Mass/Vol] 12.6 g/dL 12.0-15.0 [facility] Blood platelet mean volumeOr dered By: Wale Cadena on 05-27-2023 Platelet mean volume (Bld) [Entitic vol] 10.3 fL 6.2-12.0 [facility] Determination of erythrocyte mean corpuscular volume (MCV)Ordered By: Wale Cadena on 05-27-2023 MCV (RBC) [Entitic vol] 91.9 fL 81-99 [facility] Hematocrit Auto (Bld) [Volum e fraction]Ordered By: Wale Cadena on 05-27-2023 Hematocrit (Bld) [Volume fraction] 39.8 % 37-47 [facility] Laboratory - Chemistry and C hemistry - challengeOrdered By: Wale Cadena on 05-27-2023 CO2 [Moles/Vol] 27.0 mmol/L 21.0-32.0 [facility] Urea nitrogen/Creatinine [Mass ratio] 40.3 mg/mg 10-20 [facility] - Hematology and Cell countsOrdered By: Wale Cadena on 05-27-2023 Erythrocyte distribution width (RBC) [Entitic vol] 52.9 fL 35.1-43.9 [facility] Erythrocyte distribution width (RBC) [Ratio] 15.5 % 11.6-14.6 [facility] MCH (RBC) [Entitic mass] 29.1 pg 27.0-32.0 [facility] MCHC Auto (RBC) [Mass/Vol]Or dered By: Wale Cadena on 05-27-2023 MCHC (RBC) [Mass/Vol] 31.7 g/dL 32-36 [facility] No Panel InformationOrdered By: Wale Cadena on 05-27-2023 Estimated GFR (MDRD) Amer 82 mL/min >60 [facility] Comment on above: GFR Calc Estimated GFR (MDRD) Non-Af Amer 68 mL/min >60 [facility] Comment on above: Non- GFR Calc Platelets bldOrdered By: Meggan Cadena on 05-27-2023 Platelets (Bld) [#/Vol] 294 10*3/uL 150-450 [facility] Serum or plasma calcium love urement (mass/volume)Ordered By: Wale Cadena on 05-27-2023 Calcium [Mass/Vol] 9.5 mg/dL 8.5-10.1 [facility] Serum or plasma creatinine m easurement (mass/volume)Ordered By: Wale Cadena on 05-27-2023 Creatinine [Mass/Vol] 0.87 mg/dL 0.55-1.02 [facility] Comment on above: The validity of the calculated GFR & GFRAA in patients over 70 years has not been determined. Clinical correlation is essential. Serum or plasma urea nitroge n measurement (mass/volume)Ordered By: Wale Cadena on 05-27-2023 Urea nitrogen [Mass/Vol] 35 mg/dL 7-18 [facility] Thin prep Papanicolaou smear with manual screeningOrdered By: Wale Cadena on 05-27-2023 Thin prep Papanicolaou smear with manual screening 5 5-15 [facility] Basophil percentageOrdered B y: Wale Cadena on 05-23-2023 Bilirubin [Mass/Vol] 0.20 mg/dL 0.20-1.00 [facility] Comment on above: For patients on eltr ombopag therapy, use of Dimension [place] TBIL is not recommended. Chloride [Moles/Vol] 105 mmol/L 98-107 [facility] Glucose [Mass/Vol] 89 mg/dL 74-106 [facility] Potassium [Moles/Vol] 4.3 mmol/L 3.5-5.1 [facility] Protein [Mass/Vol] 7.6 g/dL 6.4-8.2 [facility] Sodium [Moles/Vol] 139 mmol/L 136-145 [facility] WBC (Bld) [#/Vol] 8.0 10*3/uL 4.4-11.0 [facility] Blood erythrocytes count (nu mber/volume)Ordered By: Wale Cadena on 05-23-2023 RBC (Bld) [#/Vol] 4.04 10*6/uL 4.2-5.4 [facility] Blood hemoglobin measurement (mass/volume)Ordered By: Wale Cadena on 05-23-2023 Hemoglobin (Bld) [Mass/Vol] 11.6 g/dL 12.0-15.0 [facility] Blood platelet mean volumeOr dered By: Wale Cadena on 05-23-2023 Platelet mean volume (Bld) [Entitic vol] 10.5 fL 6.2-12.0 [facility] Culture, urineOrdered By: Marcio Smith on 05-23-2023 Bacteria identified Cx Nom (U) Presumptive E. coli [facility] Determination of erythrocyte mean corpuscular volume (MCV)Ordered By: Wale Cadena on 05-23-2023 MCV (RBC) [Entitic vol] 93.3 fL 81-99 [facility] Hematocrit Auto (Bld) [Volum e fraction]Ordered By: Wale Cadena on 05-23-2023 Hematocrit (Bld) [Volume fraction] 37.7 % 37-47 [facility] Laboratory - Chemistry and C hemistry - challengeOrdered By: Wale Cadena on 05-23-2023 ALP [Catalytic activity/Vol] 65 U/L 45-117 [facility] ALT [Catalytic activity/Vol] 18 U/L 13-56 [facility] CO2 [Moles/Vol] 28.0 mmol/L 21.0-32.0 [facility] Globulin (S) [Mass/Vol] 4.5 g/dL 2.2-4.2 [facility] Urea nitrogen/Creatinine [Mass ratio] 35.9 mg/mg 10-20 [facility] Laboratory - Hematology and Cell countsOrdered By: Wale Cadena on 05-23-2023 Erythrocyte distribution width (RBC) [Entitic vol] 54.2 fL 35.1-43.9 [facility] Erythrocyte distribution width (RBC) [Ratio] 15.7 % 11.6-14.6 [facility] MCH (RBC) [Entitic mass] 28.7 pg 27.0-32.0 [facility] ([facility]) [Mass/Vol]Or dered By: Wale Cadena on 05-23-2023 MCHC (RBC) [Mass/Vol] 30.8 g/dL 32-36 [facility] No Panel InformationOrdered By: Wale Cadena on 05-23-2023 Estimated GFR (MDRD) Amer 101 mL/min >60 [facility] Comment on above: GFR Calc Estimated GFR (MDRD) Non-Af Amer 84 mL/min >60 [facility] Comment on above: Non- GFR Calc Platelets bldOrdered By: Pet er Tammi on 05-23-2023 Platelets (Bld) [#/Vol] 266 10*3/uL 150-450 [facility] Serum or plasma albumin love urement (mass/volume)Ordered By: Wale Cadena on 05-23-2023 Albumin [Mass/Vol] 3.1 g/dL 3.2-5.0 [facility] Serum or plasma albumin/glob ulin mass ratioOrdered By: Wale Cadena on 05-23-2023 Albumin/Globulin [Mass ratio] 0.7 {ratio} 0.9-2.4 [facility] Serum or plasma calcium love urement (mass/volume)Ordered By: Wale Cadena on 05-23-2023 Calcium [Mass/Vol] 9.4 mg/dL 8.5-10.1 [facility] Serum or plasma creatinine m easurement (mass/volume)Ordered By: Wale Cadena on 05-23-2023 Creatinine [Mass/Vol] 0.72 mg/dL 0.55-1.02 [facility] Comment on above: The validity of the calculated GFR & GFRAA in patients over 70 years has not been determined. Clinical correlation is essential. Serum or plasma urea nitroge n measurement (mass/volume)Ordered By: Wale Cadena on 05-23-2023 Urea nitrogen [Mass/Vol] 26 mg/dL 7-18 [facility] Thin prep Papanicolaou smear with manual screeningOrdered By: Wale Cadena on 05-23-2023 Thin prep Papanicolaou smear with manual screening 8 U/L 15- [facility] Thin prep Papanicolaou smear with manual screening 6 5-15 [facility] Bilirubin Test strip Ql (U)O rdered By: Wale Cadena on 05-22-2023 Bilirubin Ql (U) Negative Negative [facility] Culture, urineOrdered By: Marcio Smith on 05-22-2023 Bacteria identified Cx Nom (U) Presumptive E. coli [facility] Ketones Test strip Ql (U)Ord ered By: Wale Cadena on 05-22-2023 Ketones Ql (U) Negative Negative [facility] Nitrite Test strip Ql (U)Ord ered By: Wale Cadena on 05-22-2023 Nitrite Ql (U) Negative Negative [facility] Protein Test strip Ql (U)Ord ered By: Wale Cadena on 05-22-2023 Protein Ql (U) Negative Negative [facility] Urine blood detectionOrdered By: Wale Cadena on 05-22-2023 RBC Ql (U) 10 /ul Negative [facility] Urine clarityOrdered By: Meggan Cadena on 05-22-2023 Clarity (U) Cloudy Clear [facility] Urine color determinationOrd ered By: Wale Cadena on 05-22-2023 Color (U) Yellow Yellow [facility] Urine glucose detectionOrder ed By: Wale Cadena on 05-22-2023 Glucose Ql (U) Normal mg/dl Normal [facility] Urine leukocyte esterase det ection by dipstickOrdered By: Wale Cadena on 05-22-2023 Leukocyte esterase Test strip Ql (U) 500 /ul Negative [facility] Urine pHOrdered By: Wale ulloa on 05-22-2023 pH (U) 7.0 [pH] 5.0 - 8.0 [facility] Urine specific gravity measu rementOrdered By: Wale Cadena on 05-22-2023 Specific gravity (U) [Rel density] 1.010 1.002-1.030 [facility] Urobilinogen Auto test strip Ql (U)Ordered By: Wale Cadena on 05-22-2023 Urobilinogen Ql (U) Normal mg/dl Normal [facility] No Panel InformationOrdered By: Wale Cadena on 04-26-2023 Valproic Acid (Depakene) Level 54 ug/mL 50-100 [facility] Basophil percentageOrdered B y: Wale Cadena on 04-24-2023 Cholesterol [Mass/Vol] 169 mg/dL <200 [facility] Comment on above: <200 mg/dL Desirable 200-240 mg/dL Borderline >240 mg/dL High Risk Triglyceride [Mass/Vol] 242 mg/dL <199 [facility] Comment on above: The drugs N-Acetylcy steine and Metamizole may falsely depress this assay.Serum Triglycerides Reference Interval Normal <150 mg/dL Borderline high 150 - 199 mg/dL High 200 - 499 mg/dL Very High > or = 500 mg/dL Serum or plasma cholesterol in HDL measurement (mass/volume)Ordered By: Wale Cadena on 04-24-2023 Cholesterol in HDL [Mass/Vol] 35 mg/dL >40 [facility] Comment on above: The drugs N-Acetylcy steine and Metamizole may falsely depress this assay. Reference Range HDL <40 mg/dL Low HDL Cholesterol HDL >or= 60 mg/dL High HDL Cholesterol Serum or plasma cholesterol in VLDL measurement (mass/volume)Ordered By: Wale Cadena on 04-24-2023 Cholesterol in VLDL [Mass/Vol] 48 mg/dL 5-40 [facility] Serum or plasma low density lipoprotein (LDL) cholesterol measurement (mass/volume)Ordered By: Wale Cadena on 04-24-2023 Cholesterol in LDL [Mass/Vol] 86 mg/dL 0-130 [facility] Basophil percentageOrdered B y: Wale Cadena on 03-20-2023 Cholesterol [Mass/Vol] 184 mg/dL <200 [facility] [place] Comment on above: <200 mg/dL Desirable 200-240 mg/dL Borderline >240 mg/dL High Risk Triglyceride [Mass/Vol] 289 mg/dL <199 [facility] Comment on above: The drugs N-Acetylcy steine and Metamizole may falsely depress this assay.Serum Triglycerides Reference Interval Normal <150 mg/dL Borderline high 150 - 199 mg/dL High 200 - 499 mg/dL Very High > or = 500 mg/dL No Panel InformationOrdered By: Wale Cadena on 03-20-2023 Valproic Acid (Depakene) Level 53 ug/mL 50-100 [facility] Serum or plasma cholesterol in HDL measurement (mass/volume)Ordered By: Wale Cadena on 03-20-2023 Cholesterol in HDL [Mass/Vol] 40 mg/dL >40 [facility] Comment on above: The drugs N-Acetylcy steine and Metamizole may falsely depress this assay. Reference Range HDL <40 mg/dL Low HDL Cholesterol HDL >or= 60 mg/dL High HDL Cholesterol Serum or plasma cholesterol in VLDL measurement (mass/volume)Ordered By: Wale Cadena on 03-20-2023 Cholesterol in VLDL [Mass/Vol] 58 mg/dL 5-40 [facility] Serum or plasma low density lipoprotein (LDL) cholesterol measurement (mass/volume)Ordered By: Wale Cadena on 03-20-2023 Cholesterol in LDL [Mass/Vol] 86 mg/dL 0-130 [facility] Whole blood hemoglobin A1c/t otal hemoglobin ratio (mass fraction)Ordered By: Wale Cadena on 03-20-2023 HbA1c (Bld) [Mass fraction] 5.3 % 3.8-5.6 [facility] Comment on above: Normal < 5.7 % Predi abetic 5.7 - 6.4 % Diabetic >or= 6.5 % Please note range changes. Culture, urineOrdered By: Marcio Smith on 03-06-2023 Bacteria identified Cx Nom (U) Presumptive E. coli [facility] No Panel InformationOrdered By: Wale Cadena on 01-25-2023 Valproic Acid (Depakene) Level 58 ug/mL 50-100 [facility] Basophil percentageOrdered B y: Wale Cadena on 01-22-2023 Chloride [Moles/Vol] 105 mmol/L 98-107 [facility] Glucose [Mass/Vol] 82 mg/dL 74-106 [facility] Potassium [Moles/Vol] 4.5 mmol/L 3.5-5.1 [facility] Comment on above: Slight Hemolysis, Re sult may be falsely increased. Sodium [Moles/Vol] 138 mmol/L 136-145 [facility] WBC (Bld) [#/Vol] 8.6 10*3/uL 4.4-11.0 [facility] Blood erythrocytes count (nu mber/volume)Ordered By: Wale Cadena on 01-22-2023 RBC (Bld) [#/Vol] 4.36 10*6/uL 4.2-5.4 [facility] Blood hemoglobin measurement (mass/volume)Ordered By: Wale Cadena on 01-22-2023 Hemoglobin (Bld) [Mass/Vol] 12.9 g/dL 12.0-15.0 [facility] Blood platelet mean volumeOr dered By: Wale Cadena on 01-22-2023 Platelet mean volume (Bld) [Entitic vol] 9.6 fL 6.2-12.0 [facility] Determination of erythrocyte mean corpuscular volume (MCV)Ordered By: Wale Cadena on 01-22-2023 MCV (RBC) [Entitic vol] 94.0 fL 81-99 [facility] Hematocrit Auto (Bld) [Volum e fraction]Ordered By: Wale Cadena on 01-22-2023 Hematocrit (Bld) [Volume fraction] 41.0 % 37-47 [facility] - Chemistry and C hemistry - challengeOrdered By: Wale Cadena on 01-22-2023 CO2 [Moles/Vol] 27.0 mmol/L 21.0-32.0 [facility] Urea nitrogen/Creatinine [Mass ratio] 39.3 mg/mg 10-20 [facility] - Hematology and Cell countsOrdered By: Wale Cadena on 01-22-2023 Erythrocyte distribution width (RBC) [Entitic vol] 54.7 fL 35.1-43.9 [facility] Erythrocyte distribution width (RBC) [Ratio] 15.9 % 11.6-14.6 [facility] MCH (RBC) [Entitic mass] 29.6 pg 27.0-32.0 [facility] MCHC Auto (RBC) [Mass/Vol]Or dered By: Wale Cadena on 01-22-2023 MCHC (RBC) [Mass/Vol] 31.5 g/dL 32-36 [facility] No Panel InformationOrdered By: Wale Cadena on 01-22-2023 Estimated GFR (MDRD) Amer 103 mL/min >60 [facility] Comment on above: GFR Calc Estimated GFR (MDRD) Non-Af Amer 85 mL/min >60 [facility] Comment on above: Non- GFR Calc Platelets bldOrdered By: Meggan Cadena on 01-22-2023 Platelets (Bld) [#/Vol] 341 10*3/uL 150-450 [facility] Serum or plasma calcium love urement (mass/volume)Ordered By: Wale Cadena on 01-22-2023 Calcium [Mass/Vol] 9.6 mg/dL 8.5-10.1 [facility] Serum or plasma creatinine m easurement (mass/volume)Ordered By: Wale Cadena on 01-22-2023 Creatinine [Mass/Vol] 0.71 mg/dL 0.55-1.02 [facility] Comment on above: The validity of the calculated GFR & GFRAA in patients over 70 years has not been determined. Clinical correlation is essential. Serum or plasma urea nitroge n measurement (mass/volume)Ordered By: Wale Cadena on 01-22-2023 Urea nitrogen [Mass/Vol] 28 mg/dL 7-18 [facility] Thin prep Papanicolaou smear with manual screeningOrdered By: Wale Cadena on 01-22-2023 Thin prep Papanicolaou smear with manual screening 6 5-15 [facility] No Panel InformationOrdered By: Wale Cadena on 12-18-2022 Thyroid Stimulating Hormone (TSH) 4.73 uIU/mL 0.358-3.74 [facility] Valproic Acid (Depakene) Level 50 ug/mL 50-100 [facility] No Panel InformationOrdered By: Wale Cadena on 10-24-2022 Valproic Acid (Depakene) Level 33 ug/mL 50-100 [facility] Basophil percentageOrdered B y: Wale Cadena on 10-22-2022 Cholesterol [Mass/Vol] 222 mg/dL <200 [facility] [place] Comment on above: <200 mg/dL Desirable 200-240 mg/dL Borderline >240 mg/dL High Risk Triglyceride [Mass/Vol] 176 mg/dL <199 [facility] Comment on above: The drugs N-Acetylcy steine and Metamizole may falsely depress this assay.Serum Triglycerides Reference Interval Normal <150 mg/dL Borderline high 150 - 199 mg/dL High 200 - 499 mg/dL Very High > or = 500 mg/dL Serum or plasma cholesterol in HDL measurement (mass/volume)Ordered By: Wale Cadena on 10-22-2022 Cholesterol in HDL [Mass/Vol] 50 mg/dL >40 [facility] Comment on above: The drugs N-Acetylcy steine and Metamizole may falsely depress this assay. Reference Range HDL <40 mg/dL Low HDL Cholesterol HDL >or= 60 mg/dL High HDL Cholesterol Serum or plasma cholesterol in VLDL measurement (mass/volume)Ordered By: Wale Cadena on 10-22-2022 Cholesterol in VLDL [Mass/Vol] 35 mg/dL 5-40 [facility] Serum or plasma low density lipoprotein (LDL) cholesterol measurement (mass/volume)Ordered By: Wale Cadena on 10-22-2022 Cholesterol in LDL [Mass/Vol] 137 mg/dL 0-130 [facility] No Panel InformationOrdered By: Wale Cadena on 09-24-2022 Valproic Acid (Depakene) Level 45 ug/mL 50-100 [facility] Basophil percentageOrdered B y: Wale Cadena on 09-20-2022 Cholesterol [Mass/Vol] 241 mg/dL <200 [facility] Comment on above: <200 mg/dL Desirable 200-240 mg/dL Borderline >240 mg/dL High Risk Triglyceride [Mass/Vol] 395 mg/dL <199 [facility] Comment on above: The drugs N-Acetylcy steine and Metamizole may falsely depress this assay.Serum Triglycerides Reference Interval Normal <150 mg/dL Borderline high 150 - 199 mg/dL High 200 - 499 mg/dL Very High > or = 500 mg/dL No Panel InformationOrdered By: Wale Cadena on 09-20-2022 Valproic Acid (Depakene) Level 37 ug/mL 50-100 [facility] Serum or plasma cholesterol in HDL measurement (mass/volume)Ordered By: Wale Cadena on 09-20-2022 Cholesterol in HDL [Mass/Vol] 42 mg/dL >40 [facility] Comment on above: The drugs N-Acetylcy steine and Metamizole may falsely depress this assay. Reference Range HDL <40 mg/dL Low HDL Cholesterol HDL >or= 60 mg/dL High HDL Cholesterol Serum or plasma cholesterol in VLDL measurement (mass/volume)Ordered By: Wale Cadena on 09-20-2022 Cholesterol in VLDL [Mass/Vol] 79 mg/dL 5-40 [facility] Serum or plasma low density lipoprotein (LDL) cholesterol measurement (mass/volume)Ordered By: Wale Cadena on 09-20-2022 Cholesterol in LDL [Mass/Vol] 120 mg/dL 0-130 [facility] Whole blood hemoglobin A1c/t otal hemoglobin ratio (mass fraction)Ordered By: Wale Cadena on 09-20-2022 HbA1c (Bld) [Mass fraction] 5.3 % 3.8-5.6 [facility] Comment on above: Normal < 5.7 % Predi abetic 5.7 - 6.4 % Diabetic >or= 6.5 % Please note range changes. Basophil percentageOrdered B y: Wale Cadena on 07-27-2022 Chloride [Moles/Vol] 106 mmol/L 98-107 [facility] Glucose [Mass/Vol] 91 mg/dL 74-106 [facility] Potassium [Moles/Vol] 4.1 mmol/L 3.5-5.1 [facility] Sodium [Moles/Vol] 139 mmol/L 136-145 [facility] WBC (Bld) [#/Vol] 9.6 10*3/uL 4.4-11.0 [facility] Blood erythrocytes count (nu mber/volume)Ordered By: Wale Cadena on 07-27-2022 RBC (Bld) [#/Vol] 3.85 10*6/uL 4.2-5.4 [facility] Blood hemoglobin measurement (mass/volume)Ordered By: Wale Cadena on 07-27-2022 Hemoglobin (Bld) [Mass/Vol] 11.6 g/dL 12.0-15.0 [facility] Blood platelet mean volumeOr dered By: Wale Cadena on 07-27-2022 Platelet mean volume (Bld) [Entitic vol] 10.9 fL 6.2-12.0 [facility] Determination of erythrocyte mean corpuscular volume (MCV)Ordered By: Wale Cadena on 07-27-2022 MCV (RBC) [Entitic vol] 95.1 fL 81-99 [facility] Hematocrit Auto (Bld) [Volum e fraction]Ordered By: Wale Cadena on 07-27-2022 Hematocrit (Bld) [Volume fraction] 36.6 % 37-47 [facility] - Chemistry and C hemistry - challengeOrdered By: Wale Cadena on 07-27-2022 CO2 [Moles/Vol] 29.0 mmol/L 21.0-32.0 [facility] Urea nitrogen/Creatinine [Mass ratio] 31.3 mg/mg 10-20 [facility] - Hematology and Cell countsOrdered By: Wale Cadena on 07-27-2022 Erythrocyte distribution width (RBC) [Entitic vol] 51.2 fL 35.1-43.9 [facility] Erythrocyte distribution width (RBC) [Ratio] 14.7 % 11.6-14.6 [facility] MCH (RBC) [Entitic mass] 30.1 pg 27.0-32.0 [facility] MCHC Auto (RBC) [Mass/Vol]Or dered By: Wale Cadena on 07-27-2022 MCHC (RBC) [Mass/Vol] 31.7 g/dL 32-36 [facility] No Panel InformationOrdered By: Wale Cadena on 07-27-2022 Estimated GFR (MDRD) Amer 100 mL/min >60 [facility] Comment on above: GFR Calc Estimated GFR (MDRD) Non-Af Amer 83 mL/min >60 [facility] Comment on above: Non- GFR Calc Valproic Acid (Depakene) Level 44 ug/mL 50-100 [facility] Platelets bldOrdered By: Meggan Cadena on 07-27-2022 Platelets (Bld) [#/Vol] 305 10*3/uL 150-450 [facility] Serum or plasma calcium love urement (mass/volume)Ordered By: Wale Cadena on 07-27-2022 Calcium [Mass/Vol] 9.1 mg/dL 8.5-10.1 [facility] Serum or plasma creatinine m easurement (mass/volume)Ordered By: Wale Cadena on 07-27-2022 Creatinine [Mass/Vol] 0.73 mg/dL 0.55-1.02 [facility] Comment on above: The validity of the calculated GFR & GFRAA in patients over 70 years has not been determined. Clinical correlation is essential. Serum or plasma urea nitroge n measurement (mass/volume)Ordered By: Wale Cadena on 07-27-2022 Urea nitrogen [Mass/Vol] 23 mg/dL 7-18 [facility] Thin prep Papanicolaou smear with manual screeningOrdered By: Wale Cadena on 07-27-2022 Thin prep Papanicolaou smear with manual screening 4 5-15 [facility] No Panel InformationOrdered By: Wale Cadena on 07-26-2022 Valproic Acid (Depakene) Level 44 ug/mL 50-100 [facility] Basophil percentageOrdered B y: Wale Cadena on 04-27-2022 Bilirubin [Mass/Vol] 0.20 mg/dL 0.20-1.00 [facility] Comment on above: For patients on eltr ombopag therapy, use of Dimension [place] TBIL is not recommended. Chloride [Moles/Vol] 103 mmol/L 98-107 [facility] Glucose [Mass/Vol] 79 mg/dL 74-106 [facility] Potassium [Moles/Vol] 3.9 mmol/L 3.5-5.1 [facility] Protein [Mass/Vol] 8.0 g/dL 6.4-8.2 [facility] Sodium [Moles/Vol] 137 mmol/L 136-145 [facility] - Chemistry and C hemistry - challengeOrdered By: Wale Cadena on 04-27-2022 ALP [Catalytic activity/Vol] 68 U/L 45-117 [facility] ALT [Catalytic activity/Vol] 22 U/L 13-56 [facility] CO2 [Moles/Vol] 25.0 mmol/L 21.0-32.0 [facility] Globulin (S) [Mass/Vol] 5.1 g/dL 2.2-4.2 [facility] Urea nitrogen/Creatinine [Mass ratio] 21.3 mg/mg 10-20 [facility] No Panel InformationOrdered By: Wale Cadena on 04-27-2022 Estimated GFR (MDRD) Amer 97 mL/min >60 [facility] Comment on above: GFR Calc Estimated GFR (MDRD) Non-Af Amer 80 mL/min >60 [facility] Comment on above: Non- GFR Calc Serum or plasma albumin love urement (mass/volume)Ordered By: Wale Cadena on 04-27-2022 Albumin [Mass/Vol] 2.9 g/dL 3.2-5.0 [facility] Serum or plasma albumin/glob ulin mass ratioOrdered By: Wale Cadena on 04-27-2022 Albumin/Globulin [Mass ratio] 0.6 {ratio} 0.9-2.4 [facility] Serum or plasma calcium love urement (mass/volume)Ordered By: Wale Cadena on 04-27-2022 Calcium [Mass/Vol] 9.2 mg/dL 8.5-10.1 [facility] Serum or plasma creatinine m easurement (mass/volume)Ordered By: Wale Cadena on 04-27-2022 Creatinine [Mass/Vol] 0.75 mg/dL 0.55-1.02 [facility] Comment on above: The validity of the calculated GFR & GFRAA in patients over 70 years has not been determined. Clinical correlation is essential. Serum or plasma urea nitroge n measurement (mass/volume)Ordered By: Wale Cadena on 04-27-2022 Urea nitrogen [Mass/Vol] 16 mg/dL 7-18 [facility] Thin prep Papanicolaou smear with manual screeningOrdered By: Wale Cadena on 04-27-2022 Thin prep Papanicolaou smear with manual screening 17 U/L 15-37 [facility] Thin prep Papanicolaou smear with manual screening 9 5-15 [facility] Basophil percentageOrdered B y: Wale Cadena on 04-26-2022 WBC (Bld) [#/Vol] 8.9 10*3/uL 4.4-11.0 [facility] Blood erythrocytes count (nu mber/volume)Ordered By: Wale Cadena on 04-26-2022 RBC (Bld) [#/Vol] 4.00 10*6/uL 4.2-5.4 [facility] Blood hemoglobin measurement (mass/volume)Ordered By: Wale Cadena on 04-26-2022 Hemoglobin (Bld) [Mass/Vol] 12.0 g/dL 12.0-15.0 [facility] Blood platelet mean volumeOr dered By: Wale Cadena on 04-26-2022 Platelet mean volume (Bld) [Entitic vol] 11.2 fL 6.2-12.0 [facility] Determination of erythrocyte mean corpuscular volume (MCV)Ordered By: Wale Cadena on 04-26-2022 MCV (RBC) [Entitic vol] 95.0 fL 81-99 [facility] Hematocrit Auto (Bld) [Volum e fraction]Ordered By: Wale Cadena on 04-26-2022 Hematocrit (Bld) [Volume fraction] 38.0 % 37-47 [facility] - Hematology and Cell countsOrdered By: Wale Cadena on 04-26-2022 Erythrocyte distribution width (RBC) [Entitic vol] 51.7 fL 35.1-43.9 [facility] Erythrocyte distribution width (RBC) [Ratio] 14.9 % 11.6-14.6 [facility] MCH (RBC) [Entitic mass] 30.0 pg 27.0-32.0 [facility] MCHC Auto (RBC) [Mass/Vol]Or dered By: Wale Cadena on 04-26-2022 MCHC (RBC) [Mass/Vol] 31.6 g/dL 32-36 [facility] No Panel InformationOrdered By: Wale Cadena on 04-26-2022 Valproic Acid (Depakene) Level 63 ug/mL 50-100 [facility] Platelets bldOrdered By: Pet florida Cadena on 04-26-2022 Platelets (Bld) [#/Vol] 379 10*3/uL 150-450 [facility] Basophil percentageOrdered B y: Wale Cadena on 04-23-2022 Chloride [Moles/Vol] 105 mmol/L 98-107 [facility] Cholesterol [Mass/Vol] 175 mg/dL <200 [facility] [place] Comment on above: <200 mg/dL Desirable 200-240 mg/dL Borderline >240 mg/dL High Risk Glucose [Mass/Vol] 77 mg/dL 74-106 [facility] Potassium [Moles/Vol] 3.7 mmol/L 3.5-5.1 [facility] Comment on above: Slight Hemolysis, Re sult may be falsely increased. Sodium [Moles/Vol] 141 mmol/L 136-145 [facility] Triglyceride [Mass/Vol] 179 mg/dL <199 [facility] Comment on above: The drugs N-Acetylcy steine and Metamizole may falsely depress this assay.Serum Triglycerides Reference Interval Normal <150 mg/dL Borderline high 150 - 199 mg/dL High 200 - 499 mg/dL Very High > or = 500 mg/dL WBC (Bld) [#/Vol] 11.2 10*3/uL 4.4-11.0 [facility] Blood erythrocytes count (nu mber/volume)Ordered By: Wale Cadena on 04-23-2022 RBC (Bld) [#/Vol] 3.72 10*6/uL 4.2-5.4 [facility] Blood hemoglobin measurement (mass/volume)Ordered By: Wale Cadena on 04-23-2022 Hemoglobin (Bld) [Mass/Vol] 11.3 g/dL 12.0-15.0 [facility] Blood platelet mean volumeOr dered By: Wale Cadena on 04-23-2022 Platelet mean volume (Bld) [Entitic vol] 10.5 fL 6.2-12.0 [facility] Determination of erythrocyte mean corpuscular volume (MCV)Ordered By: Wale Cadena on 04-23-2022 MCV (RBC) [Entitic vol] 96.5 fL 81-99 [facility] Hematocrit Auto (Bld) [Volum e fraction]Ordered By: Wale Cadena on 04-23-2022 Hematocrit (Bld) [Volume fraction] 35.9 % 37-47 [facility] - Chemistry and C hemistry - challengeOrdered By: Wale Cadena on 04-23-2022 CO2 [Moles/Vol] 28.0 mmol/L 21.0-32.0 [facility] Urea nitrogen/Creatinine [Mass ratio] 15.3 mg/mg 10-20 [facility] - Hematology and Cell countsOrdered By: Wlae Cadena on 04-23-2022 Erythrocyte distribution width (RBC) [Entitic vol] 55.3 fL 35.1-43.9 [facility] Erythrocyte distribution width (RBC) [Ratio] 15.7 % 11.6-14.6 [facility] MCH (RBC) [Entitic mass] 30.4 pg 27.0-32.0 [facility] MCHC Auto (RBC) [Mass/Vol]Or dered By: Wale Cadena on 04-23-2022 MCHC (RBC) [Mass/Vol] 31.5 g/dL 32-36 [facility] No Panel InformationOrdered By: Wale Cadena on 04-23-2022 Estimated GFR (MDRD) Amer 103 mL/min >60 [facility] Comment on above: GFR Calc Estimated GFR (MDRD) Non-Af Amer 85 mL/min >60 [facility] Comment on above: Non- GFR Calc Platelets bldOrdered By: Meggan Cadena on 04-23-2022 Platelets (Bld) [#/Vol] 408 10*3/uL 150-450 [facility] Serum or plasma calcium love urement (mass/volume)Ordered By: Wale Cadena on 04-23-2022 Calcium [Mass/Vol] 9.1 mg/dL 8.5-10.1 [facility] Serum or plasma cholesterol in HDL measurement (mass/volume)Ordered By: Wale Cadena on 04-23-2022 Cholesterol in HDL [Mass/Vol] 37 mg/dL >40 [facility] Comment on above: The drugs N-Acetylcy steine and Metamizole may falsely depress this assay. Reference Range HDL <40 mg/dL Low HDL Cholesterol HDL >or= 60 mg/dL High HDL Cholesterol Serum or plasma cholesterol in VLDL measurement (mass/volume)Ordered By: Wale Cadena on 04-23-2022 Cholesterol in VLDL [Mass/Vol] 36 mg/dL 5-40 [facility] Serum or plasma creatinine m easurement (mass/volume)Ordered By: Wale Cadena on 04-23-2022 Creatinine [Mass/Vol] 0.72 mg/dL 0.55-1.02 [facility] Comment on above: The validity of the calculated GFR & GFRAA in patients over 70 years has not been determined. Clinical correlation is essential. Serum or plasma low density lipoprotein (LDL) cholesterol measurement (mass/volume)Ordered By: Wale Cadena on 04-23-2022 Cholesterol in LDL [Mass/Vol] 102 mg/dL 0-130 [facility] Serum or plasma urea nitroge n measurement (mass/volume)Ordered By: Wale Cadena on 04-23-2022 Urea nitrogen [Mass/Vol] 11 mg/dL 7-18 [facility] Thin prep Papanicolaou smear with manual screeningOrdered By: Wale Cadena on 04-23-2022 Thin prep Papanicolaou smear with manual screening 8 5-15 [facility] Basophil percentageon 2021 Chloride [Moles/Vol] 106 mmol/L 98-107 [facility] Work Phone: Glucose [Mass/Vol] 100 mg/dL 74-106 [facility] Work Phone: Comment on above: Fasting Glucose resu lt from 100 to 125 mg/dL suggests IMPAIRED HOMEOSTASIS per A.D.A. criteria. Potassium [Moles/Vol] 3.4 mmol/L 3.5-5.1 [facility] Work Phone: Sodium [Moles/Vol] 142 mmol/L 136-145 [facility] Work Phone: WBC (Bld) [#/Vol] 14.5 10*3/uL 4.4-11.0 [facility] Work Phone: Blood erythrocytes count (nu mber/volume)on 04-19-2022 RBC (Bld) [#/Vol] 4.10 10*6/uL 4.2-5.4 [facility] Work Phone: Blood hemoglobin measurement (mass/volume)on 04-19-2022 Hemoglobin (Bld) [Mass/Vol] 12.3 g/dL 12.0-15.0 [facility] Work Phone: Blood platelet mean volumeon 04-19-2022 Platelet mean volume (Bld) [Entitic vol] 10.2 fL 6.2-12.0 [facility] Work Phone: Determination of erythrocyte mean corpuscular volume (MCV)on 04-19-2022 MCV (RBC) [Entitic vol] 96.1 fL 81-99 [facility] Work Phone: Hematocrit Auto (Bld) [Volum e fraction]on 04-19-2022 Hematocrit (Bld) [Volume fraction] 39.4 % 37-47 [facility] Work Phone: Laboratory - Chemistry and C hemistry - challengeon 04-19-2022 CO2 [Moles/Vol] 28.0 mmol/L 21.0-32.0 [facility] Work Phone: Urea nitrogen/Creatinine [Mass ratio] 14.6 mg/mg 10-20 [facility] Work Phone: Laboratory - Hematology and Cell countson 04-19-2022 Erythrocyte distribution width (RBC) [Entitic vol] 55.3 fL 35.1-43.9 [facility] Work Phone: Erythrocyte distribution width (RBC) [Ratio] 16.0 % 11.6-14.6 [facility] Work Phone: MCH (RBC) [Entitic mass] 30.0 pg 27.0-32.0 [facility] Work Phone: MCHC Auto (RBC) [Mass/Vol]on 04-19-2022 MCHC (RBC) [Mass/Vol] 31.2 g/dL 32-36 [facility] Work Phone: No Panel Informationon 04-19 Estimated GFR (MDRD) Amer 88 mL/min >60 [facility] Work Phone: Comment on above: GFR Calc Estimated GFR (MDRD) Non-Af Amer 73 mL/min >60 [facility] Work Phone: Comment on above: Non- GFR Calc Platelets bldon 04-19-2022 Platelets (Bld) [#/Vol] 557 10*3/uL 150-450 [facility] Work Phone: Serum or plasma calcium love urement (mass/volume)on 04-19-2022 Calcium [Mass/Vol] 9.2 mg/dL 8.5-10.1 [facility] Work Phone: Serum or plasma creatinine m easurement (mass/volume)on 04-19-2022 Creatinine [Mass/Vol] 0.82 mg/dL 0.55-1.02 [facility] Work Phone: Comment on above: The validity of the calculated GFR & GFRAA in patients over 70 years has not been determined. Clinical correlation is essential. Serum or plasma urea nitroge n measurement (mass/volume)on 04-19-2022 Urea nitrogen [Mass/Vol] 12 mg/dL 7-18 [facility] Work Phone: Thin prep Papanicolaou smear with manual screeningon 04-19-2022 Thin prep Papanicolaou smear with manual screening 8 5-15 [facility] Work Phone: Basic Metabolic Panelon 04-05 Anion gap [Moles/Vol] 5 mmol/L Normal 3-13 [facility] Comment on above: Performed By: #### B MP3M, MG3, HEMDF #### [facility] [address] [place] [address] Calcium [Mass/Vol] 9.3 mg/dL Normal 8.4-10.4 [facility] Comment on above: Performed By: #### B MP3M, MG3, HEMDF #### [facility] [address] [place] [address] CO2 [Moles/Vol] 30 mmol/L Normal 22-30 [facility] Comment on above: Performed By: #### B MP3M, MG3, HEMDF #### [facility] [address] [place] [address] Glucose [Mass/Vol] 87 mg/dL Normal 70-100 [facility] Comment on above: Performed By: #### B MP3M, MG3, HEMDF #### [facility] [address] [place] [address] Urea nitrogen [Mass/Vol] 12 mg/dL Normal 9-20 [facility] Comment on above: Performed By: #### B MP3M, MG3, HEMDF #### [facility] [address] [place] [address] Creatinine [Mass/Vol] 0.67 mg/dL Normal 0.52-1.25 [facility] Comment on above: Performed By: #### B MP3M, MG3, HEMDF #### [facility] [address] [place] [address] GFR/1.73 sq M.predicted among blacks MDRD (S/P/Bld) [Vol rate/Area] mL/min/{1.73_m2} Normal >60 [facility] Comment on above: Performed By: #### B MP3M, MG3, HEMDF #### [facility] [address] [place] [address] GFR/1.73 sq M.predicted among non-blacks MDRD (S/P/Bld) [Vol rate/Area] 87.3 mL/min/{1.73_m2} Normal >60 [facility] Comment on above: Result Comment: KDIG O [...] By: #### B MP3M, MG3, HEMDF #### [facility] [address] [place] [address] Potassium [Moles/Vol] 3.5 mmol/L Normal 3.5-5.1 [facility] Comment on above: Performed By: #### B MP3M, MG3, HEMDF #### [facility] [address] [place] [address] Sodium [Moles/Vol] 143 mmol/L Normal 135-145 [facility] Comment on above: Performed By: #### B MP3M, MG3, HEMDF #### [facility] [address] [place] [address] Chloride [Moles/Vol] 108 mmol/L High 98-107 [facility] Comment on above: Performed By: #### B MP3M, MG3, HEMDF #### [facility] [address] [place] [address] Basic Metabolic Panel w/ Ref taiwo to MGon 04-18-2022 Anion gap [Moles/Vol] 5 mmol/L 3 - 13 mmol/L [employer] Work Phone: Calcium [Mass/Vol] 9.3 mg/dL 8.4 - 10. 4 mg/dL [employer] Work Phone: Chloride [Moles/Vol] 108 mmol/L High 98 - 10 7 mmol/L [employer] Work Phone: CO2 [Moles/Vol] 30 mmol/L 22 - 30 mmol/L [employer] Work Phone: Creatinine [Mass/Vol] 0.67 mg/dL 0.52 - 1.25 mg/dL [employer] Work Phone: eGFR mL/min 60 - P INF mL/min [employer] Work Phone: EGFR IF NonAfrican South African 87.3 mL/min 60 - PINF mL/min [employer] Work Phone: Comment on above: KDIGO guidelines [...] [Mass/Vol] 87 mg/dL 70 - 100 mg/dL [employer] Work Phone: Interpretation and review of laboratory results Abnormal [facility] Work Phone: Potassium [Moles/Vol] 3.5 mmol/L 3.5 - 5.1 mmol/L [facility] Work Phone: Sodium [Moles/Vol] 143 mmol/L 135 - 145 mmol/L [facility] Work Phone: Urea nitrogen (BldV) [Mass/Vol] 12 mg/dL 9 - 20 mg/dL [facility] Work Phone: Test Performed by [facility], [address] [place] [id number] [place] [address] [facility] Work Phone: CBC with Auto Differentialon 04-18-2022 Absolute Baso # 0.1 10*3/uL 0 - 0.2 10*3/uL [facility] Work Phone: Absolute Neut # 9.0 10*3/uL High 1.8 - 7 10*3/uL [facility] Work Phone: Basophils/100 WBC (Bld) 1.0 % 0 - 2 % [facility] Work Phone: Eosinophils (Bld) [#/Vol] 0.2 10*3/uL 0 - 0.5 10*3/uL [facility] Work Phone: Eosinophils/100 WBC (Bld) 1.7 % 1 - 6 % [facility] Work Phone: Granulocytes/100 WBC (Bld) 72.6 % 40 - 80 % [employer] Work Phone: Hematocrit (Bld) [Volume fraction] 35.8 % 35 - 47 % [facility] Work Phone: Hemoglobin (Bld) [Mass/Vol] 12.0 g/dL 11.7 - 16 g/dL [facility] Work Phone: Interpretation and review of laboratory results Abnormal [facility] Work Phone: Lymphocytes (Bld) [#/Vol] 2.5 10*3/uL 1 - 4.3 10*3/uL [facility] Work Phone: Lymphocytes/100 WBC (Bld) 20.1 % 20 - 40 % [facility] Work Phone: MCH (RBC) [Entitic mass] 30.1 pg 26 - [address] [facility] Work Phone: MCHC (RBC) [Mass/Vol] 33.4 % 32 - 36 % [facility] Work Phone: MCV (RBC) [Entitic vol] 90.2 fL 79 - 98 fL [facility] Work Phone: Monocytes (Bld) [#/Vol] 0.6 10*3/uL 0 - 0.8 10*3/uL [facility] Work Phone: Monocytes/100 WBC (Bld) 4.6 % 2 - 10 % [facility] Work Phone: Platelet distribution width (Bld) [Ratio] 15.5 % High 11.5 - 14.5 % [facility] Work Phone: Platelet mean volume (Bld) [Entitic vol] 7.8 fL 7.4 - 12.[address] [facility] Work Phone: Comment on above: MPV is a calculated measurement using platelet volume ratio. Platelets (Bld) [#/Vol] 500 10*3/uL High 140 - 440 10*3/uL [facility] Work Phone: RBC (Bld) [#/Vol] 3.97 10*6/uL 3.8 - 5.2 10*6/uL [facility] Work Phone: WBC (Bld) [#/Vol] 12.3 10*3/uL High 3.6 - 10.7 10*3/uL [facility] Work Phone: Test Performed by [facility], [address] [place] [address] [facility] Work Phone: Hemogram w/ Autodiffon 04-18 Abs Baso Cnt 0.1 10*3/uL Normal 0.0-0.2 [facility] Comment on above: Performed By: #### B MP3M, MG3, HEMDF #### [facility] [address] [place] [address] Abs Neutrophile Cnt 9.0 10*3/uL High 1.8-7.0 [facility] Comment on above: Performed By: #### B MP3M, MG3, HEMDF #### [facility] [address] [place] [address] Basophils/100 WBC (Bld) 1.0 % Normal 0.0-2.0 [facility] Comment on above: Performed By: #### B MP3M, MG3, HEMDF #### [facility] [address] [place] [address] Eosinophils (Bld) [#/Vol] 0.2 10*3/uL Normal 0.0-0.5 [facility] Comment on above: Performed By: #### B MP3M, MG3, HEMDF #### [facility] [address] [place] [address] Eosinophils/100 WBC (Bld) 1.7 % Normal 1.0-6.0 [facility] Comment on above: Performed By: #### B MP3M, MG3, HEMDF #### [facility] [address] [place] [address] Erythrocyte distribution width (RBC) [Ratio] 15.5 % High 11.5-14.5 [facility] Comment on above: Performed By: #### B MP3M, MG3, HEMDF #### [facility] [address] [place] [address] Granulocytes/100 WBC (Bld) 72.6 % Normal 40.0-80.0 [facility] Comment on above: Performed By: #### B MP3M, MG3, HEMDF #### [facility] [address] [place] [address] Hematocrit (Bld) [Volume fraction] 35.8 % Normal 35.0-47.0 [facility] Comment on above: Performed By: #### B MP3M, MG3, HEMDF #### [facility] [address] [place] [address] Hemoglobin (Bld) [Mass/Vol] 12.0 g/dL Normal 11.7-16.0 [facility] Comment on above: Performed By: #### B MP3M, MG3, HEMDF #### [facility] [address] [place] [address] Lymphocytes (Bld) [#/Vol] 2.5 10*3/uL Normal 1.0-4.3 [facility] Comment on above: Performed By: #### B MP3M, MG3, HEMDF #### [facility] [address] [place] [address] Lymphocytes/100 WBC (Bld) 20.1 % Normal 20.0-40.0 [facility] Comment on above: Performed By: #### B MP3M, MG3, HEMDF #### [facility] [address] [place] [address] MCH (RBC) [Entitic mass] 30.1 pg Normal 26.0-34.0 [facility] Comment on above: Performed By: #### B MP3M, MG3, HEMDF #### [facility] [address] [place] [address] MCHC 33.4 % Normal 32.0-36.0 [facility] Comment on above: Performed By: #### B MP3M, MG3, HEMDF #### [facility] [address] [place] [address] MCV (RBC) [Entitic vol] 90.2 fL Normal 79.0-98.0 [facility] Comment on above: Performed By: #### B MP3M, MG3, HEMDF #### [facility] [address] [place] [address] Monocytes (Bld) [#/Vol] 0.6 10*3/uL Normal 0.0-0.8 [facility] Comment on above: Performed By: #### B MP3M, MG3, HEMDF #### [facility] [address] [place] [address] Monocytes/100 WBC (Bld) 4.6 % Normal 2.0-10.0 [facility] Comment on above: Performed By: #### B MP3M, MG3, HEMDF #### [facility] [address] [place] [address] Platelet mean volume (Bld) [Entitic vol] 7.8 fL Normal 7.4-12.4 [facility] Comment on above: Result Comment: MPV is a calculated measurement using platelet volume ratio. Performed By: #### B MP3M, MG3, HEMDF #### [place] [address] [place] [address] Platelets (Bld) [#/Vol] 500 10*3/uL High 140-440 [facility] Comment on above: Performed By: #### B MP3M, MG3, HEMDF #### [facility] [address] [place] [address] RBC (Bld) [#/Vol] 3.97 10*6/uL Normal 3.80-5.20 [facility] Comment on above: Performed By: #### B MP3M, MG3, HEMDF #### [facility] [address] [place] [address] WBC (Bld) [#/Vol] 12.3 10*3/uL High 3.6-10.7 [facility] Comment on above: Performed By: #### B MP3M, MG3, HEMDF #### [facility] [address] [place] [address] Magnesiumon 04-18-2022 Magnesium [Mass/Vol] 2.1 mg/dL Normal 1.6-2.3 [facility] Comment on above: Performed By: #### B MP3M, MG3, HEMDF #### [facility] [address] [place] [address] Magnesium [Mass/Vol] 2.1 mg/dL 1.6 - 2 .3 mg/dL [facility] Work Phone: Test Performed by [facility], [facility] [address] [place] [address] [facility] Work Phone: Basic Metabolic Panelon 04-05 Calcium [Mass/Vol] 8.7 mg/dL Normal 8.4-10.4 [facility] Comment on above: Performed By: #### M DIFF, MG3, HEMDF, BMP3M #### [facility] [address] [place] [address] Anion gap [Moles/Vol] 4 mmol/L Normal 3-13 [facility] Comment on above: Performed By: #### M DIFF, MG3, HEMDF, BMP3M #### [facility] [address] [place] [address] CO2 [Moles/Vol] 30 mmol/L Normal 22-30 [facility] Comment on above: Performed By: #### M DIFF, MG3, HEMDF, BMP3M #### [facility] [address] [place] [address] Creatinine [Mass/Vol] 0.63 mg/dL Normal 0.52-1.25 [facility] Comment on above: Performed By: #### M DIFF, MG3, HEMDF, BMP3M #### [facility] [address] [place] [address] GFR/1.73 sq M.predicted among blacks MDRD (S/P/Bld) [Vol rate/Area] mL/min/{1.73_m2} Normal >60 [facility] Comment on above: Performed By: #### M DIFF, MG3, HEMDF, BMP3M #### [facility] [address] [place] [address] GFR/1.73 sq M.predicted among non-blacks MDRD (S/P/Bld) [Vol rate/Area] 89.1 mL/min/{1.73_m2} Normal >60 [facility] Comment on above: Result Comment: KDIG O [...] #### M DIFF, MG3, HEMDF, BMP3M #### [facility] [address] [place] [address] Glucose [Mass/Vol] 92 mg/dL Normal 70-100 [facility] Comment on above: Performed By: #### M DIFF, MG3, HEMDF, BMP3M #### [facility] [address] [place] [address] Urea nitrogen [Mass/Vol] 10 mg/dL Normal 9-20 [facility] Comment on above: Performed By: #### M DIFF, MG3, HEMDF, BMP3M #### [facility] [address] [place] [address] Chloride [Moles/Vol] 106 mmol/L Normal 98-107 [facility] Comment on above: Performed By: #### M DIFF, MG3, HEMDF, BMP3M #### [facility] [address] [place] [address] Potassium [Moles/Vol] 3.5 mmol/L Normal 3.5-5.1 [facility] Comment on above: Performed By: #### M DIFF, MG3, HEMDF, BMP3M #### [facility] [address] [place] [address] Sodium [Moles/Vol] 140 mmol/L Normal 135-145 [facility] Comment on above: Performed By: #### M DIFF, MG3, HEMDF, BMP3M #### [facility] [address] [place] [address] Basic Metabolic Panel w/ Ref taiwo to MGon 04-17-2022 Anion gap [Moles/Vol] 4 mmol/L 3 - 13 mmol/L [facility] Work Phone: Calcium [Mass/Vol] 8.7 mg/dL 8.4 - 10. 4 mg/dL [facility] Work Phone: Chloride [Moles/Vol] 106 mmol/L 98 - 10 7 mmol/L [facility] Work Phone: CO2 [Moles/Vol] 30 mmol/L 22 - 30 mmol/L [facility] Work Phone: Creatinine [Mass/Vol] 0.63 mg/dL 0.52 - 1.25 mg/dL [facility] Work Phone: eGFR mL/min 60 - P INF mL/min [employer] Work Phone: EGFR IF NonAfrican South African 89.1 mL/min 60 - PINF mL/min [employer] Work Phone: Comment on above: KDIGO guidelines [...] [Mass/Vol] 92 mg/dL 70 - 100 mg/dL [facility] Work Phone: Potassium [Moles/Vol] 3.5 mmol/L 3.5 - 5.1 mmol/L [facility] Work Phone: Sodium [Moles/Vol] 140 mmol/L 135 - 145 mmol/L [facility] Work Phone: Urea nitrogen (BldV) [Mass/Vol] 10 mg/dL 9 - 20 mg/dL [facility] Work Phone: CBC with Auto Differentialon 04-17-2022 Hematocrit (Bld) [Volume fraction] 34.1 % Low 35 - 47 % [facility] Work Phone: Hemoglobin (Bld) [Mass/Vol] 11.2 g/dL Low 11.7 - 16 g/dL [facility] Work Phone: Interpretation and review of laboratory results Abnormal [facility] Work Phone: MCH (RBC) [Entitic mass] 30.2 pg 26 - [address] [facility] Work Phone: MCHC (RBC) [Mass/Vol] 32.9 % 32 - 36 % [facility] Work Phone: MCV (RBC) [Entitic vol] 91.7 fL 79 - 98 fL [facility] Work Phone: Platelet distribution width (Bld) [Ratio] 15.5 % High 11.5 - 14.5 % [facility] Work Phone: Platelet mean volume (Bld) [Entitic vol] 7.8 fL 7.4 - 12.[address] [facility] Work Phone: Comment on above: MPV is a calculated measurement using platelet volume ratio. Platelets (Bld) [#/Vol] 438 10*3/uL 140 - 440 10*3/uL [facility] Work Phone: RBC (Bld) [#/Vol] 3.72 10*6/uL Low 3.8 - 5.2 10*6/uL [facility] Work Phone: WBC (Bld) [#/Vol] 14.3 10*3/uL High 3.6 - 10.7 10*3/uL [facility] Work Phone: CULTURE BLOOD (Two)on 2021 Microscopic examination of blood, culture CULTURE BLOOD (Two) --> Status: F No growth at 5 days. Normal [facility] Comment on above: Performed By: #### M DIFF, BMP3M, HEMDF #### [facility] [address] [place] [address] Culture, Blood 2on 2 Blood Culture, Routine No growth at [address] [facility] Work Phone: Test Performed by [facility], [address] [place] [address], [place] [address] [facility] Work Phone: Hemogram w/ Autodiffon 04-17 Erythrocyte distribution width (RBC) [Ratio] 15.5 % High 11.5-14.5 [facility] Comment on above: Performed By: #### M DIFF, MG3, HEMDF, BMP3M #### [facility] [address] [place] [address] Hematocrit (Bld) [Volume fraction] 34.1 % Low 35.0-47.0 [facility] Comment on above: Performed By: #### M DIFF, MG3, HEMDF, BMP3M #### [facility] [address] [place] [address] Hemoglobin (Bld) [Mass/Vol] 11.2 g/dL Low 11.7-16.0 [facility] Comment on above: Performed By: #### M DIFF, MG3, HEMDF, BMP3M #### [facility] [address] [place] [address] MCH (RBC) [Entitic mass] 30.2 pg Normal 26.0-34.0 [facility] Comment on above: Performed By: #### M DIFF, MG3, HEMDF, BMP3M #### [facility] [address] [place] [address] MCHC 32.9 % Normal 32.0-36.0 [facility] Comment on above: Performed By: #### M DIFF, MG3, HEMDF, BMP3M #### [facility] [address] [place] [address] MCV (RBC) [Entitic vol] 91.7 fL Normal 79.0-98.0 [facility] Comment on above: Performed By: #### M DIFF, MG3, HEMDF, BMP3M #### [facility] [address] [place] [address] Platelet mean volume (Bld) [Entitic vol] 7.8 fL Normal 7.4-12.4 [facility] Comment on above: Result Comment: MPV is a calculated measurement using platelet volume ratio. Performed By: #### M DIFF, MG3, HEMDF, BMP3M #### [place] [address] [place] [address] Platelets (Bld) [#/Vol] 438 10*3/uL Normal 140-440 [facility] Comment on above: Performed By: #### M DIFF, MG3, HEMDF, BMP3M #### [place] [address] [place] [address] RBC (Bld) [#/Vol] 3.72 10*6/uL Low 3.80-5.20 [facility] Comment on above: Performed By: #### M DIFF, MG3, HEMDF, BMP3M #### [place] [address] [place] [address] WBC (Bld) [#/Vol] 14.3 10*3/uL High 3.6-10.7 [facility] Comment on above: Performed By: #### M DIFF, MG3, HEMDF, BMP3M #### [facility] [address] [place] [address] Magnesiumon 04-17-2022 Magnesium [Mass/Vol] 2.1 mg/dL Normal 1.6-2.3 [facility] Comment on above: Performed By: #### M DIFF, MG3, HEMDF, BMP3M #### [place] [address] [place] [address] Magnesium [Mass/Vol] 2.1 mg/dL 1.6 - 2 .3 mg/dL [facility] Work Phone: Test Performed by [facility], [address] [place] [address] [facility] Work Phone: Manual Diffon 04-17-2022 Abs Eosin Cnt 0.1 10*3/uL Normal 0.0-0.5 [facility] Comment on above: Performed By: #### M DIFF, MG3, HEMDF, BMP3M #### [facility] [address] [place] [address] Abs Lymph Cnt 3.3 10*3/uL Normal 1.1-4.5 [facility] Comment on above: Performed By: #### M DIFF, MG3, HEMDF, BMP3M #### [facility] [address] [place] [address] Abs Monocyte Cnt 0.9 10*3/uL Normal 0.2-1.1 [facility] Comment on above: Performed By: #### M DIFF, MG3, HEMDF, BMP3M #### [facility] [address] [place] [address] Abs Neutrophile Cnt 10.0 10*3/uL High 2.2-8.2 [facility] Comment on above: Performed By: #### M DIFF, MG3, HEMDF, BMP3M #### [facility] [address] [place] [address] Anisocytosis Slight Normal [facility] Comment on above: Performed By: #### M DIFF, MG3, HEMDF, BMP3M #### [facility] [address] [place] [address] Bands 1 % Normal 0-3 [facility] Comment on above: Performed By: #### M DIFF, MG3, HEMDF, BMP3M #### [facility] [address] [place] [address] Eosinophils 1 % Normal 1-6 [facility] Comment on above: Performed By: #### M DIFF, MG3, HEMDF, BMP3M #### [facility] [address] [place] [address] Lymphocytes 23 % Normal 20-40 [facility] Comment on above: Performed By: #### M DIFF, MG3, HEMDF, BMP3M #### [facility] [address] [place] [address] Monocytes 6 % Normal 2-10 [facility] Comment on above: Performed By: #### M DIFF, MG3, HEMDF, BMP3M #### [facility] [address] [place] [address] Ovalocytes Slight Normal [facility] Comment on above: Performed By: #### M DIFF, MG3, HEMDF, BMP3M #### [facility] [address] [place] [address] Poikilocytosis Slight Normal [facility] Comment on above: Performed By: #### M DIFF, MG3, HEMDF, BMP3M #### [facility] [address] [place] [address] Polychromasia Slight Normal [facility] Comment on above: Performed By: #### M DIFF, MG3, HEMDF, BMP3M #### [facility] [address] [place] [address] RBC Morphology ABNORMAL Normal [facility] Comment on above: Performed By: #### M DIFF, MG3, HEMDF, BMP3M #### [facility] [address] [place] [address] Seg Neutrophils 69 % Normal 40-80 [facility] Comment on above: Performed By: #### M DIFF, MG3, HEMDF, BMP3M #### [facility] [address] [place] [address] Target Cells Slight Normal [facility] Comment on above: Performed By: #### M DIFF, MG3, HEMDF, BMP3M #### [facility] [address] [place] [address] Abs Baso Cnt 0.0 10*3/uL Normal 0.0-0.2 [facility] Comment on above: Performed By: #### M DIFF, MG3, HEMDF, BMP3M #### [facility] [address] [place] [address] Basophils 0 % Normal 0-2 [facility] Comment on above: Performed By: #### M DIFF, MG3, HEMDF, BMP3M #### [facility] [address] [place] [address] Cells counted 100 Normal [facility] Comment on above: Performed By: #### M DIFF, MG3, HEMDF, BMP3M #### [facility] [address] [place] [address] Manual Differentialon 2021 Absolute Baso # 0.0 10*3/uL 0 - 0.2 10*3/uL [facility] Work Phone: [phone] Absolute Eos # 0.1 10*3/uL 0 - 0.5 10*3/uL [facility] Work Phone: [phone] Absolute Lymph # 3.3 10*3/uL 1.1 - 4.5 10*3/uL [facility] Work Phone: [phone] Absolute [place] # 0.9 10*3/uL 0.2 - 1.1 10*3/uL [facility] Work Phone: [phone] Absolute Neut # 10.0 10*3/uL High 2.2 - 8.2 10*3/uL [facility] Work Phone: [phone] Anisocytosis Slight [facility] Work Phone: [phone] Bands 1 % 0 - 3 % [facility] Work Phone: [phone] Basophils/100 WBC (Bld) 0 % 0 - 2 % [facility] Work Phone: [phone] Eosinophils/100 WBC (Bld) 1 % 1 - 6 % [facility] Work Phone: [phone] Interpretation and review of laboratory results Abnormal [facility] Work Phone: [phone] Lymphocytes/100 WBC (Bld) 23 % 20 - 40 % [facility] Work Phone: [phone] Monocytes/100 WBC (Bld) 6 % 2 - 10 % [facility] Work Phone: [phone] Ovalocytes Slight [facility] Work Phone: [phone] Poikilocytes Slight [facility] Work Phone: [phone] Polychromasia Slight [facility] Work Phone: RBC (Bld) [#/Vol] ABNORMAL [facility] Work Phone: Seg Neutrophils 69 % 40 - 80 % [facility] Work Phone: Target Cells Slight [facility] Work Phone: TOTAL CELLS COUNTED 100 [facility] Work Phone: Test Performed by [facility], [address] [place], [place] [address] [facility] Work Phone: No Panel Informationon 04-17 Test Performed by [facility], [facility] [address] [place] [address] [facility] Work Phone: Basic Metabolic Panelon 04-05 Anion gap [Moles/Vol] 8 mmol/L Normal 3-13 [facility] Comment on above: Performed By: #### M DIFF, BMP3M, HEMDF #### [facility] [address] [place] [address] Calcium [Mass/Vol] 8.9 mg/dL Normal 8.4-10.4 [facility] Comment on above: Performed By: #### M DIFF, BMP3M, HEMDF #### [facility] [address] [place] [address] CO2 [Moles/Vol] 23 mmol/L Normal 22-30 [facility] Comment on above: Performed By: #### M DIFF, BMP3M, HEMDF #### [facility] [address] [place] [address] Glucose [Mass/Vol] 95 mg/dL Normal 70-100 [facility] Comment on above: Performed By: #### M DIFF, BMP3M, HEMDF #### [facility] [address] [place] [address] Urea nitrogen [Mass/Vol] 13 mg/dL Normal 9-20 [facility] Comment on above: Performed By: #### M DIFF, BMP3M, HEMDF #### [facility] [address] [place] [address] Creatinine [Mass/Vol] 0.70 mg/dL Normal 0.52-1.25 [facility] Comment on above: Performed By: #### M DIFF, BMP3M, HEMDF #### [facility] [address] [place] [address] GFR/1.73 sq M.predicted among blacks MDRD (S/P/Bld) [Vol rate/Area] mL/min/{1.73_m2} Normal >60 [facility] Comment on above: Performed By: #### M DIFF, BMP3M, HEMDF #### [facility] [address] [place] [address] GFR/1.73 sq M.predicted among non-blacks MDRD (S/P/Bld) [Vol rate/Area] 86.1 mL/min/{1.73_m2} Normal >60 [facility] Comment on above: Result Comment: KDIG O [...] By: #### M DIFF, BMP3M, HEMDF #### [facility] [address] [place] [address] Potassium [Moles/Vol] 3.7 mmol/L Normal 3.5-5.1 [facility] Comment on above: Performed By: #### M DIFF, BMP3M, HEMDF #### [facility] [address] [place] [address] Sodium [Moles/Vol] 141 mmol/L Normal 135-145 [facility] Comment on above: Performed By: #### M DIFF, BMP3M, HEMDF #### [facility] [address] [place] [address] Chloride [Moles/Vol] 111 mmol/L High 98-107 [facility] Comment on above: Performed By: #### M DIFF, BMP3M, HEMDF #### [facility] [address] [place] [address] Anion gap [Moles/Vol] 8 mmol/L 3 - 13 mmol/L [facility] Calcium [Mass/Vol] 8.9 mg/dL 8.4 - 10. 4 mg/dL [facility] Chloride [Moles/Vol] 111 mmol/L High 98 - 10 7 mmol/L [facility] CO2 [Moles/Vol] 23 mmol/L 22 - 30 mmol/L [facility] Creatinine [Mass/Vol] 0.7 mg/dL 0.52 - 1.25 mg/dL [facility] eGFR mL/min 60 - P INF mL/min [facility] EGFR IF NonAfrican South African 86.1 mL/min 60 - PINF mL/min [facility] Comment on [...] 95 mg/dL 70 - 100 mg/dL [facility] Interpretation and review of laboratory results Abnormal [facility] Potassium [Moles/Vol] 3.7 mmol/L 3.5 - 5.1 mmol/L [facility] Sodium [Moles/Vol] 141 mmol/L 135 - 145 mmol/L [facility] Urea nitrogen (BldV) [Mass/Vol] 13 mg/dL 9 - 20 mg/dL [facility] Test Performed by [facility], [address], [place], [place] [address] [facility] CBC with Auto Differentialon 04-16-2022 Absolute Baso # 0.2 10*3/uL 0 - 0.2 10*3/uL [facility] Absolute Neut # 9.0 10*3/uL High 1.8 [...] [Mass/Vol] 12.0 g/dL 11.7 - 16 g/dL [facility] Interpretation and review of laboratory results Abnormal [...] vol] 8.0 fL 7.4 - 12.4 fL [facility] Comment on above: MPV is a calculated measurement using platelet volume ratio. Platelets (Bld) [#/Vol] 410 10*3/uL 140 - 440 10*3/uL [facility] RBC (Bld) [#/Vol] 3.98 10*6/uL 3.8 - 5.2 10*6/uL [facility] WBC (Bld) [#/Vol] 14.2 10*3/uL High 3.6 - 10.7 10*3/uL [facility] Test Performed by [facility], [address] [place] [address] [facility] Hemogram w/ Autodiffon 04-16 Abs Baso Cnt 0.2 10*3/uL Normal 0.0-0.2 [facility] Comment on above: Performed By: #### M DIFF, BMP3M, HEMDF #### [facility] [address] [place] [address] Abs Neutrophile Cnt 9.0 10*3/uL High 1.8-7.0 [facility] Comment on above: Performed By: #### M DIFF, BMP3M, HEMDF #### [facility] [address] [place] [address] Basophils/100 WBC (Bld) 1.1 % Normal 0.0-2.0 [facility] Comment on above: Performed By: #### M DIFF, BMP3M, HEMDF #### [facility] [address] [place] [address] Eosinophils (Bld) [#/Vol] 0.4 10*3/uL Normal 0.0-0.5 [facility] Comment on above: Performed By: #### M DIFF, BMP3M, HEMDF #### [facility] [address] [place] [address] Eosinophils/100 WBC (Bld) 2.5 % Normal 1.0-6.0 [facility] Comment on above: Performed By: #### M DIFF, BMP3M, HEMDF #### [facility] [address] [place] [address] Erythrocyte distribution width (RBC) [Ratio] 15.7 % High 11.5-14.5 [facility] Comment on above: Performed By: #### M DIFF, BMP3M, HEMDF #### [facility] [address] [place] [address] Granulocytes/100 WBC (Bld) 63.2 % Normal 40.0-80.0 [facility] Comment on above: Performed By: #### M DIFF, BMP3M, HEMDF #### [facility] [address] [place] [address] Hematocrit (Bld) [Volume fraction] 36.4 % Normal 35.0-47.0 [facility] Comment on above: Performed By: #### M DIFF, BMP3M, HEMDF #### [facility] [address] [place] [address] Hemoglobin (Bld) [Mass/Vol] 12.0 g/dL Normal 11.7-16.0 [facility] Comment on above: Performed By: #### M DIFF, BMP3M, HEMDF #### [facility] [address] [place] [address] Lymphocytes (Bld) [#/Vol] 3.7 10*3/uL Normal 1.0-4.3 [facility] Comment on above: Performed By: #### M DIFF, BMP3M, HEMDF #### [facility] [address] [place] [address] Lymphocytes/100 WBC (Bld) 26.2 % Normal 20.0-40.0 [facility] Comment on above: Performed By: #### M DIFF, BMP3M, HEMDF #### [facility] [address] [place] [address] MCH (RBC) [Entitic mass] 30.0 pg Normal 26.0-34.0 [facility] Comment on above: Performed By: #### M DIFF, BMP3M, HEMDF #### [facility] [address] [place] [address] MCHC 32.8 % Normal 32.0-36.0 [facility] Comment on above: Performed By: #### M DIFF, BMP3M, HEMDF #### [facility] [address] [place] [address] MCV (RBC) [Entitic vol] 91.4 fL Normal 79.0-98.0 [facility] Comment on above: Performed By: #### M DIFF, BMP3M, HEMDF #### [facility] [address] [place] [address] Monocytes (Bld) [#/Vol] 1.0 10*3/uL High 0.0-0.8 [facility] Comment on above: Performed By: #### M DIFF, BMP3M, HEMDF #### [facility] [address] [place] [address] Monocytes/100 WBC (Bld) 7.0 % Normal 2.0-10.0 [facility] Comment on above: Performed By: #### M DIFF, BMP3M, HEMDF #### [facility] [address] [place] [address] Platelet mean volume (Bld) [Entitic vol] 8.0 fL Normal 7.4-12.4 [facility] Comment on above: Result Comment: MPV is a calculated measurement using platelet volume ratio. Performed By: #### M DIFF, BMP3M, HEMDF #### [place] [address] [place] [address] Platelets (Bld) [#/Vol] 410 10*3/uL Normal 140-440 [facility] Comment on above: Performed By: #### M DIFF, BMP3M, HEMDF #### [facility] [address] [place] [address] RBC (Bld) [#/Vol] 3.98 10*6/uL Normal 3.80-5.20 [facility] Comment on above: Performed By: #### M DIFF, BMP3M, HEMDF #### [facility] [address] [place] [address] WBC (Bld) [#/Vol] 14.2 10*3/uL High 3.6-10.7 [facility] Comment on above: Performed By: #### M DIFF, BMP3M, HEMDF #### [facility] [address] [place] [address] Basic Metabolic Panelon 04-05 Calcium [Mass/Vol] 8.8 mg/dL Normal 8.4-10.4 [facility] Comment on above: Performed By: #### M DIFF, BMP3M, HEMDF #### [facility] [address] [place] [address] Glucose [Mass/Vol] 105 mg/dL High 70-100 [facility] Comment on above: Performed By: #### M DIFF, BMP3M, HEMDF #### [facility] [address] [place] [address] Urea nitrogen [Mass/Vol] 16 mg/dL Normal 9-20 [facility] Comment on above: Performed By: #### M DIFF, BMP3M, HEMDF #### [facility] [address] [place] [address] Anion gap [Moles/Vol] 3 mmol/L Normal 3-13 [facility] Comment on above: Performed By: #### M DIFF, BMP3M, HEMDF #### [facility] [address] [place] [address] CO2 [Moles/Vol] 28 mmol/L Normal 22-30 [facility] Comment on above: Performed By: #### M DIFF, BMP3M, HEMDF #### [facility] [address] [place] [address] Creatinine [Mass/Vol] 0.69 mg/dL Normal 0.52-1.25 [facility] Comment on above: Performed By: #### M DIFF, BMP3M, HEMDF #### [facility] [address] [place] [address] GFR/1.73 sq M.predicted among blacks MDRD (S/P/Bld) [Vol rate/Area] mL/min/{1.73_m2} Normal >60 [facility] Comment on above: Performed By: #### M DIFF, BMP3M, HEMDF #### [facility] [address] [place] [address] GFR/1.73 sq M.predicted among non-blacks MDRD (S/P/Bld) [Vol rate/Area] 86.5 mL/min/{1.73_m2} Normal >60 [facility] Comment on above: Result Comment: KDIG O [...] By: #### M DIFF, BMP3M, HEMDF #### [facility] [address] [place] [address] Chloride [Moles/Vol] 111 mmol/L High 98-107 [facility] Comment on above: Performed By: #### M DIFF, BMP3M, HEMDF #### [facility] [address] [place] [address] Potassium [Moles/Vol] 3.8 mmol/L Normal 3.5-5.1 [facility] Comment on above: Performed By: #### M DIFF, BMP3M, HEMDF #### [facility] [address] [place] [address] Sodium [Moles/Vol] 142 mmol/L Normal 135-145 [facility] Comment on above: Performed By: #### M DIFF, BMP3M, HEMDF #### [facility] [address] [place] [address] Anion gap [Moles/Vol] 3 mmol/L 3 - 13 mmol/L [facility] Calcium [Mass/Vol] 8.8 mg/dL 8.4 - 10. 4 mg/dL [facility] Chloride [Moles/Vol] 111 mmol/L High 98 - 10 7 mmol/L [facility] CO2 [Moles/Vol] 28 mmol/L 22 - 30 mmol/L [facility] Creatinine [Mass/Vol] 0.69 mg/dL 0.52 - 1.25 mg/dL [facility] eGFR mL/min 60 - P INF mL/min [facility] EGFR IF NonAfrican South African 86.5 mL/min 60 - PINF mL/min [facility] Comment on above: KDIGO guidelines pro vide [...] 105 mg/dL High 70 - 100 mg/dL [facility] Interpretation and review of laboratory results Abnormal [facility] Potassium [Moles/Vol] 3.8 mmol/L 3.5 - 5.1 mmol/L [facility] Sodium [Moles/Vol] 142 mmol/L 135 - 145 mmol/L [facility] Urea nitrogen (BldV) [Mass/Vol] 16 mg/dL 9 - 20 mg/dL [facility] Test Performed by [address] [facility] CULTURE BLOODon 04-15-2022 Microscopic examination of blood, culture CULTURE BLOOD --> Status: F Staphylococcus epidermidis DETECTED; mecA/C DETECTED. NOTE: This organism was detected by PCR but was not isolated using traditional culture methods. Presumptive identification performed using Fabricly PCR methodology; confirmatory identification to follow. _ The Fabricly BCID2 PCR Panel can detect the following [...] traditional culture methods. Presumptive identification performed using BioEvaporcoolArray PCR methodology; confirmatory identification to follow. _ The Fabricly BCID2 PCR Panel can detect the following [...] be positive with the same organism. Normal [facility] Comment on above: Performed By: #### M DIFF, BMP3M, HEMDF #### [facility] [address] [place] [address] Culture, Bloodon 04-15-2022 Blood Culture, Routine Staphylococcus epidermidis DETECTED; mecA/C DETECTED. NOTE: This organism was detected by PCR but was not isolated using traditional culture methods. Presumptive identification performed using BioEvaporcoolArray PCR methodology; confirmatory identification to follow. _ The Fabricly BCID2 PCR Panel can detect the following [...] KPC, NDM, OXA-48-like, VIM, and mcr-1. Abnormal [employer] Work Phone: Blood Culture, Routine Staphylococcus hominis Abnormal [facility] Work Phone: Blood Culture, Routine Isolated: Contamination likely unless additional blood culture sets are found to be positive with the same organism. [employer] Work Phone: Interpretation and review of laboratory results Abnormal [employer] Work Phone: Test Performed by [facility], [address] [place] [address] [id number] [facility] Work Phone: Basic Metabolic Panelon 09-1 -2021 Anion gap [Moles/Vol] 5 mmol/L Normal 3-13 [facility] Comment on above: Order Comment: Sligh t Hemolysis. Performed By: #### M DIFF, BMP3M, HEMDF #### [facility] [address] [place] [address] Calcium [Mass/Vol] 8.1 mg/dL Low 8.4-10.4 [facility] Comment on above: Order Comment: Sligh t Hemolysis. Performed By: #### M DIFF, BMP3M, HEMDF #### [facility] [address] [place] [address] CO2 [Moles/Vol] 24 mmol/L Normal 22-30 [facility] Comment on above: Order Comment: Sligh t Hemolysis. Performed By: #### M DIFF, BMP3M, HEMDF #### [facility] [address] [place] [address] Glucose [Mass/Vol] 98 mg/dL Normal 70-100 [facility] Comment on above: Order Comment: Sligh t Hemolysis. Performed By: #### M DIFF, BMP3M, HEMDF #### [facility] [address] [place] [address] Urea nitrogen [Mass/Vol] 20 mg/dL Normal 9-20 [facility] Comment on above: Order Comment: Sligh t Hemolysis. Performed By: #### M DIFF, BMP3M, HEMDF #### [facility] [address] [place] [address] Creatinine [Mass/Vol] 0.67 mg/dL Normal 0.52-1.25 [facility] Comment on above: Order Comment: Sligh t Hemolysis. Performed By: #### M DIFF, BMP3M, HEMDF #### [facility] [address] [place] [address] GFR/1.73 sq M.predicted among blacks MDRD (S/P/Bld) [Vol rate/Area] mL/min/{1.73_m2} Normal >60 [facility] Comment on above: Order Comment: Sligh t Hemolysis. Performed By: #### M DIFF, BMP3M, HEMDF #### [facility] [address] [place] [address] GFR/1.73 sq M.predicted among non-blacks MDRD (S/P/Bld) [Vol rate/Area] 87.3 mL/min/{1.73_m2} Normal >60 [facility] Comment on above: Order Comment: Sligh [...] By: #### M DIFF, BMP3M, HEMDF #### [facility] [address] [place] [address] Potassium [Moles/Vol] 3.8 mmol/L Normal 3.5-5.1 [facility] Comment on above: Order Comment: Sligh t Hemolysis. Performed By: #### M DIFF, BMP3M, HEMDF #### [facility] [address] [place] [address] Chloride [Moles/Vol] 117 mmol/L High 98-107 [facility] Comment on above: Order Comment: Sligh t Hemolysis. Performed By: #### M DIFF, BMP3M, HEMDF #### [facility] [address] [place] [address] Sodium [Moles/Vol] 146 mmol/L High 135-145 [facility] Comment on above: Order Comment: Sligh t Hemolysis. Performed By: #### M DIFF, BMP3M, HEMDF #### [facility] [address] [place] [address] Basic Metabolic Panel w/ Ref taiwo to MGon 04-14-2022 Anion gap [Moles/Vol] 5 mmol/L 3 - 13 mmol/L [facility] Work Phone: Calcium [Mass/Vol] 8.1 mg/dL Low 8.4 - 10. 4 mg/dL [facility] Work Phone: Chloride [Moles/Vol] 117 mmol/L High 98 - 10 7 mmol/L [facility] Work Phone: CO2 [Moles/Vol] 24 mmol/L 22 - 30 mmol/L [facility] Work Phone: Creatinine [Mass/Vol] 0.67 mg/dL 0.52 - 1.25 mg/dL [employer] Work Phone: eGFR mL/min 60 - P INF mL/min [facility] Work Phone: EGFR IF NonAfrican South African 87.3 mL/min 60 - PINF mL/min [employer] Work Phone: Comment on above: KDIGO guidelines [...] [Mass/Vol] 98 mg/dL 70 - 100 mg/dL [employer] Work Phone: Interpretation and review of laboratory results Abnormal [employer] Work Phone: Potassium [Moles/Vol] 3.8 mmol/L 3.5 - 5.1 mmol/L [employer] Work Phone: Sodium [Moles/Vol] 146 mmol/L High 135 - 145 mmol/L [facility] Work Phone: Urea nitrogen (BldV) [Mass/Vol] 20 mg/dL 9 - 20 mg/dL [facility] Work Phone: [facility], [address] [place], [place] [address] [facility] Work Phone: CBC with Auto Differentialon 04-14-2022 Hematocrit (Bld) [Volume fraction] 32.2 % Low 35 - 47 % [facility] Work Phone: Hemoglobin (Bld) [Mass/Vol] 10.8 g/dL Low 11.7 - 16 g/dL [facility] Work Phone: Interpretation and review of laboratory results Abnormal [facility] Work Phone: MCH (RBC) [Entitic mass] 30.5 pg 26 - [address] [facility] Work Phone: MCHC (RBC) [Mass/Vol] 33.5 % 32 - 36 % [facility] Work Phone: MCV (RBC) [Entitic vol] 90.9 fL 79 - 98 fL [facility] Work Phone: Platelet distribution width (Bld) [Ratio] 15.4 % High 11.5 - 14.5 % [facility] Work Phone: Platelet mean volume (Bld) [Entitic vol] 8.7 fL 7.4 - 12.[address] [facility] Work Phone: Comment on above: MPV is a calculated measurement using platelet volume ratio. Platelets (Bld) [#/Vol] 288 10*3/uL 140 - 440 10*3/uL [facility] Work Phone: RBC (Bld) [#/Vol] 3.55 10*6/uL Low 3.8 - 5.2 10*6/uL [facility] Work Phone: WBC (Bld) [#/Vol] 9.8 10*3/uL 3.6 - 10.7 10*3/uL [facility] Work Phone: Test Performed by [facility], [address], [place] [id number] [place] [address] [facility] Work Phone: CULTURE BLOODon 04-14-2022 Microscopic examination of blood, culture 1 Organism Escherichia coli Isolated: For identification and/or sensitivity, refer to culture collected on: 04/10/22 @ 2058 ([id number]). Normal [facility] Comment on above: Performed By: #### M DIFF, BMP3M, HEMDF #### [facility] [address] [place] [address] CULTURE BLOOD (Two)on 2021 Microscopic examination of blood, culture CULTURE BLOOD (Two) --> Status: F Escherichia coli DETECTED. Presumptive identification performed using BioDarudar FilmArray PCR methodology; confirmatory identification to follow. _ The WildBlueArray BCID2 PCR Panel can detect the following [...] VIM, and mcr-1. Presumptive identification performed using BioFire FilmArray PCR methodology; confirmatory identification to follow. _ The WildBlueArray BCID2 PCR Panel can detect the following [...] <= 1 S Cefepime(GABINO) <= 1 S Aztreonam(AGBINO) <= 1 S Ampicillin/Sulbacta m(GABINO) <= 2 S Pip/Tazobactam(GABINO) <= 4 S Meropenem(GABINO) <= 0.25 S Ciprofloxacin(GABINO) <= 0.25 S Gentamicin(GABINO) <= 1 S Amikacin(GABINO) <= 2 S Normal [facility] Comment on above: Performed By: #### M DIFF, BMP3M, HEMDF #### [facility] [address] [place] [address] Culture, Bloodon 04-14-2022 Blood Culture, Routine Escherichia coli Abnormal [facility] Blood Culture, Routine Isolated: For identification and/or sensitivity, refer to culture collected on: 04/10/22 @ 2058 ([id number]). [facility] Interpretation and review of laboratory results Abnormal [facility] Test Performed by [facility], [address] [place] [address] [address] [facility] Culture, Blood 2on Blood Culture, Routine Escherichia coli DETECTED. Presumptive identification performed using BioFire FilmArray PCR methodology; confirmatory identification to follow. _ The WildBlueArray BCID2 PCR Panel can detect the following [...] KPC, NDM, OXA-48-like, VIM, and mcr-1. Abnormal [facility] Blood Culture, Routine Escherichia coli Abnormal [facility] Blood Culture, Routine Isolated: [facility] Interpretation and review of laboratory results Abnormal [facility] Test Performed by [id number] [place] [address] LAB [facility] Hemogram w/ Autodiffon 04-14 Erythrocyte distribution width (RBC) [Ratio] 15.4 % High 11.5-14.5 [facility] Comment on above: Performed By: #### M DIFF, BMP3M, HEMDF #### [facility] [address] [place] [address] Hematocrit (Bld) [Volume fraction] 32.2 % Low 35.0-47.0 [facility] Comment on above: Performed By: #### M DIFF, BMP3M, HEMDF #### [facility] [address] [place] [address] Hemoglobin (Bld) [Mass/Vol] 10.8 g/dL Low 11.7-16.0 [facility] Comment on above: Performed By: #### M DIFF, BMP3M, HEMDF #### [facility] [address] [place] [address] MCH (RBC) [Entitic mass] 30.5 pg Normal 26.0-34.0 [facility] Comment on above: Performed By: #### M DIFF, BMP3M, HEMDF #### [facility] [address] [place] [address] MCHC 33.5 % Normal 32.0-36.0 [facility] Comment on above: Performed By: #### M DIFF, BMP3M, HEMDF #### [facility] [address] [place] [address] MCV (RBC) [Entitic vol] 90.9 fL Normal 79.0-98.0 [facility] Comment on above: Performed By: #### M DIFF, BMP3M, HEMDF #### [facility] [address] [place] [address] Platelet mean volume (Bld) [Entitic vol] 8.7 fL Normal 7.4-12.4 [facility] Comment on above: Result Comment: MPV is a calculated measurement using platelet volume ratio. Performed By: #### M DIFF, BMP3M, HEMDF #### [facility] [address] [place] [address] Platelets (Bld) [#/Vol] 288 10*3/uL Normal 140-440 [facility] Comment on above: Performed By: #### M DIFF, BMP3M, HEMDF #### [facility] [address] [place] [address] RBC (Bld) [#/Vol] 3.55 10*6/uL Low 3.80-5.20 [facility] Comment on above: Performed By: #### M DIFF, BMP3M, HEMDF #### [facility] [address] [place] [address] WBC (Bld) [#/Vol] 9.8 10*3/uL Normal 3.6-10.7 [facility] Comment on above: Performed By: #### M DIFF, BMP3M, HEMDF #### [facility] [address] [place] [address] Manual Diffon 04-14-2022 Abs Eosin Cnt 0.1 10*3/uL Normal 0.0-0.5 [facility] Comment on above: Performed By: #### M DIFF, BMP3M, HEMDF #### [facility] [address] [place] [address] Abs Lymph Cnt 0.6 10*3/uL Low 1.1-4.5 [facility] Comment on above: Performed By: #### M DIFF, BMP3M, HEMDF #### [facility] [address] [place] [address] Abs Monocyte Cnt 0.6 10*3/uL Normal 0.2-1.1 [facility] Comment on above: Performed By: #### M DIFF, BMP3M, HEMDF #### [facility] [address] [place] [address] Abs Neutrophile Cnt 8.1 10*3/uL Normal 2.2-8.2 [facility] Comment on above: Performed By: #### M DIFF, BMP3M, HEMDF #### [facility] [address] [place] [address] Anisocytosis Slight Normal [facility] Comment on above: Performed By: #### M DIFF, BMP3M, HEMDF #### [facility] [address] [place] [address] Bands 1 % Normal 0-3 [facility] Comment on above: Performed By: #### M DIFF, BMP3M, HEMDF #### [facility] [address] [place] [address] Eosinophils 1 % Normal 1-6 [facility] Comment on above: Performed By: #### M DIFF, BMP3M, HEMDF #### [facility] [address] [place] [address] Lymphocytes 6 % Low 20-40 [facility] Comment on above: Performed By: #### M DIFF, BMP3M, HEMDF #### [facility] [address] [place] [address] Monocytes 6 % Normal 2-10 [facility] Comment on above: Performed By: #### M DIFF, BMP3M, HEMDF #### [facility] [address] [place] [address] Myelocytes 4 % Abnormal <1 [facility] Comment on above: Performed By: #### M DIFF, BMP3M, HEMDF #### [facility] [address] [place] [address] Polychromasia Slight Normal [facility] Comment on above: Performed By: #### M DIFF, BMP3M, HEMDF #### [facility] [address] [place] [address] RBC Morphology ABNORMAL Normal [facility] Comment on above: Performed By: #### M DIFF, BMP3M, HEMDF #### [facility] [address] [place] [address] Seg Neutrophils 82 % High 40-80 [facility] Comment on above: Performed By: #### M DIFF, BMP3M, HEMDF #### [facility] [address] [place] [address] Abs Baso Cnt 0.0 10*3/uL Normal 0.0-0.2 [facility] Comment on above: Performed By: #### M DIFF, BMP3M, HEMDF #### [facility] [address] [place] [address] Basophils 0 % Normal 0-2 [facility] Comment on above: Performed By: #### M DIFF, BMP3M, HEMDF #### [facility] [address] [place] [address] Cells counted 100 Normal [facility] Comment on above: Performed By: #### M DIFF, BMP3M, HEMDF #### [facility] [address] [place] [address] Manual Differentialon 2021 Absolute Baso # 0.0 10*3/uL 0 - 0.2 10*3/uL [employer] Work Phone: Absolute Eos # 0.1 10*3/uL 0 - 0.5 10*3/uL [facility] Work Phone: Absolute Lymph # 0.6 10*3/uL Low 1.1 - 4.5 10*3/uL [facility] Work Phone: Absolute Tyler # 0.6 10*3/uL 0.2 - 1.1 10*3/uL [employer] Work Phone: Absolute Neut # 8.1 10*3/uL 2.2 - 8.2 10*3/uL [facility] Work Phone: Anisocytosis Slight [employer] Work Phone: Bands 1 % 0 - 3 % [facility] Work Phone: Basophils/100 WBC (Bld) 0 % 0 - 2 % [facility] Work Phone: Eosinophils/100 WBC (Bld) 1 % 1 - 6 % [facility] Work Phone: Interpretation and review of laboratory results Abnormal [employer] Work Phone: Lymphocytes/100 WBC (Bld) 6 % Low 20 - 40 % [employer] Work Phone: Monocytes/100 WBC (Bld) 6 % 2 - 10 % [facility] Work Phone: Myelocytes 4 % Abnormal NINF - 1 % [employer] Work Phone: Polychromasia Slight [employer] Work Phone: RBC (Bld) [#/Vol] ABNORMAL [employer] Work Phone: Seg Neutrophils 82 % High 40 - 80 % [employer] Work Phone: TOTAL CELLS COUNTED 100 [employer] Work Phone: Test Performed by [facility], [address] [place] [address]. [place], [place] [id number] [place] [address] LAB [employer] Work Phone: CULTURE URINEon 04-13-2022 CULTURE URINE [...] 1 S Amikacin(GABINO) <= 2 S Normal [facility] Comment on above: Performed By: #### M DIFF, BMP3M, HEMDF #### [facility] [address] [place] [address] Culture, Urineon 04-13-2022 Bacteria identified Cx Nom (U) Normal urogenital enriqueta present. Abnormal [facility] Bacteria identified Cx Nom (U) Escherichia coli Abnormal [facility] Bacteria identified Cx Nom (U) 50,000-90,000 CFU/ml [facility] Interpretation and review of laboratory results Abnormal [facility] Test Performed by [facility], [address] [place] [id number] [place] [address] LAB [facility] Basic Metabolic Panelon Calcium [Mass/Vol] 7.9 mg/dL Low 8.4-10.4 [facility] Comment on above: Performed By: #### M DIFF, MG3, HEMDF, BMP3M #### [employer] [address] [place] [address] Glucose [Mass/Vol] 112 mg/dL High 70-100 [facility] Comment on above: Performed By: #### M DIFF, MG3, HEMDF, BMP3M #### [facility] [address] [place] [address] Anion gap [Moles/Vol] 7 mmol/L Normal 3-13 [facility] Comment on above: Performed By: #### M DIFF, MG3, HEMDF, BMP3M #### [facility] [address] [place] [address] CO2 [Moles/Vol] 22 mmol/L Normal 22-30 [facility] Comment on above: Performed By: #### M DIFF, MG3, HEMDF, BMP3M #### [facility] [address] [place] [address] Creatinine [Mass/Vol] 1.09 mg/dL Normal 0.52-1.25 [facility] Comment on above: Performed By: #### M DIFF, MG3, HEMDF, BMP3M #### [facility] [address] [place] [address] GFR/1.73 sq M.predicted among blacks MDRD (S/P/Bld) [Vol rate/Area] 58.4 mL/min/{1.73_m2} Abnormal >60 [facility] Comment on above: Performed By: #### M DIFF, MG3, HEMDF, BMP3M #### [facility] [address] [place] [address] GFR/1.73 sq M.predicted among non-blacks MDRD (S/P/Bld) [Vol rate/Area] 50.4 mL/min/{1.73_m2} Abnormal >60 [facility] Comment on above: Result Comment: KDIG O [...] #### M DIFF, MG3, HEMDF, BMP3M #### [facility] [address] [place] [address] Urea nitrogen [Mass/Vol] 28 mg/dL High 9-20 [facility] Comment on above: Performed By: #### M DIFF, MG3, HEMDF, BMP3M #### [facility] [address] [place] [address] Chloride [Moles/Vol] 111 mmol/L High 98-107 [facility] Comment on above: Performed By: #### M DIFF, MG3, HEMDF, BMP3M #### [facility] [address] [place] [address] Potassium [Moles/Vol] 3.6 mmol/L Normal 3.5-5.1 [facility] Comment on above: Performed By: #### M DIFF, MG3, HEMDF, BMP3M #### [facility] [address] [place] [address] Sodium [Moles/Vol] 140 mmol/L Normal 135-145 [facility] Comment on above: Performed By: #### M DIFF, MG3, HEMDF, BMP3M #### [facility] [address] [place] [address] Basic Metabolic Panel w/ Ref taiwo to MGon 04-12-2022 Anion gap [Moles/Vol] 7 mmol/L 3 - 13 mmol/L [facility] Work Phone: Calcium [Mass/Vol] 7.9 mg/dL Low 8.4 - 10. 4 mg/dL [facility] Work Phone: Chloride [Moles/Vol] 111 mmol/L High 98 - 10 7 mmol/L [facility] Work Phone: CO2 [Moles/Vol] 22 mmol/L 22 - 30 mmol/L [facility] Work Phone: Creatinine [Mass/Vol] 1.09 mg/dL 0.52 - 1.25 mg/dL [employer] Work Phone: EGFR IF NonAfrican South African 50.4 mL/min Abnormal 60 - PINF mL/min [employer] Work Phone: Comment on above: KDIGO guidelines [...] 58.4 mL/min/{1.73_m2} Abnormal 60 - PINF mL/min [employer] Work Phone: Glucose [Mass/Vol] 112 mg/dL High 70 - 100 mg/dL [employer] Work Phone: Interpretation and review of laboratory results Abnormal [employer] Work Phone: Potassium [Moles/Vol] 3.6 mmol/L 3.5 - 5.1 mmol/L [employer] Work Phone: Sodium [Moles/Vol] 140 mmol/L 135 - 145 mmol/L [employer] Work Phone: Urea nitrogen (BldV) [Mass/Vol] 28 mg/dL High 9 - 20 mg/dL [employer] Work Phone: Test Performed by [facility], [address] [place], [place] [id number] [place] [address] LAB [employer] Work Phone: CBC with Auto Differentialon 09-08-2022 Absolute Baso # 0.1 10*3/uL 0 - 0.2 10*3/uL [facility] Work Phone: Absolute Neut # 11.3 10*3/uL High 1.8 - 7 10*3/uL [facility] Work Phone: Basophils/100 WBC (Bld) 0.4 % 0 - 2 % [facility] Work Phone: Eosinophils (Bld) [#/Vol] 0.1 10*3/uL 0 - 0.5 10*3/uL [facility] Work Phone: Eosinophils/100 WBC (Bld) 0.9 % Low 1 - 6 % [facility] Work Phone: Granulocytes/100 WBC (Bld) 78.9 % 40 - 80 % [facility] Work Phone: Hematocrit (Bld) [Volume fraction] 33.4 % Low 35 - 47 % [facility] Work Phone: Hemoglobin (Bld) [Mass/Vol] 10.9 g/dL Low 11.7 - 16 g/dL [facility] Work Phone: Interpretation and review of laboratory results Abnormal [facility] Work Phone: Lymphocytes (Bld) [#/Vol] 1.3 10*3/uL 1 - 4.3 10*3/uL [facility] Work Phone: Lymphocytes/100 WBC (Bld) 8.9 % Low 20 - 40 % [facility] Work Phone: MCH (RBC) [Entitic mass] 29.8 pg 26 - 34 pg [facility] Work Phone: MCHC (RBC) [Mass/Vol] 32.5 % 32 - 36 % [facility] Work Phone: MCV (RBC) [Entitic vol] 91.6 fL 79 - 98 fL [facility] Work Phone: Monocytes (Bld) [#/Vol] 1.6 10*3/uL High 0 - 0.8 10*3/uL [employer] Work Phone: Monocytes/100 WBC (Bld) 10.9 % High 2 - 10 % [facility] Work Phone: Platelet distribution width (Bld) [Ratio] 15.0 % High 11.5 - 14.5 % [employer] Work Phone: Platelet mean volume (Bld) [Entitic vol] 8.6 fL 7.4 - 12.4 fL [employer] Work Phone: Comment on above: MPV is a calculated measurement using platelet volume ratio. Platelets (Bld) [#/Vol] 174 10*3/uL 140 - 440 10*3/uL [employer] Work Phone: RBC (Bld) [#/Vol] 3.65 10*6/uL Low 3.8 - 5.2 10*6/uL [employer] Work Phone: WBC (Bld) [#/Vol] 14.3 10*3/uL High 3.6 - 10.7 10*3/uL [employer] Work Phone: Test Performed by [facility], [address] [facility] Work Phone: Fluoroscopy modified barium swallow with videoon 04-12-2022 Patient Name: UBALDO ARANGO Fluoroscopy ACCESSION EXAM DATE/TIME PROCEDURE ORDERING PROVIDER [id number] 04/11/2022 12:45 EDT RF Swallowing Function 58PRICILA ALVAREZ w/ Video CPT code 74362 Reason For Exam (RF Swallowing Function w/ [...] piriform sinuses. Pharyngeal Phase: Transient laryngeal penetration. Trommald: Oral Phase: Premature pharyngeal spillage to valleculae. [...] NELSON Transcribed Date and Time: 04/12/2022 5:24 [facility] Amber Coelho MD - 04/12/2022 [facility]: [id number] ACCESSION EXAM DATE/TIME PROCEDURE ORDERING PROVIDER [id number] 04/11/2022 12:45 EDT RF Swallowing Function 5813 PRICILA JIN w/ Video CPT code 65865 Reason For Exam (RF Swallowing Function w/ [...] piriform sinuses. Pharyngeal Phase: Transient laryngeal penetration. Trommald: Oral Phase: Premature pharyngeal spillage to valleculae. [...] NELSON Transcribed Date and Time: 04/12/2022 5:24 [facility] Work Phone: Fluoroscopy modified barium swallow with videoOrdered By: Amber Coelho on 04-12-2022 [facility] Work Phone: Hemogram w/ Autodiffon 04-12 Abs Baso Cnt 0.1 10*3/uL Normal 0.0-0.2 [facility] Comment on above: Performed By: #### M DIFF, MG3, HEMDF, BMP3M #### [facility] [address] [place] [address] Abs Neutrophile Cnt 11.3 10*3/uL High 1.8-7.0 [facility] Comment on above: Performed By: #### M DIFF, MG3, HEMDF, BMP3M #### [facility] [address] [place] [address] Basophils/100 WBC (Bld) 0.4 % Normal 0.0-2.0 S [facility] Comment on above: Performed By: #### M DIFF, MG3, HEMDF, BMP3M #### [facility] [address] [place] [address] Eosinophils (Bld) [#/Vol] 0.1 10*3/uL Normal 0.0-0.5 [facility] Comment on above: Performed By: #### M DIFF, MG3, HEMDF, BMP3M #### [facility] [address] [place] [address] Eosinophils/100 WBC (Bld) 0.9 % Low 1.0-6.0 [facility] Comment on above: Performed By: #### M DIFF, MG3, HEMDF, BMP3M #### [facility] [address] [place] [address] Erythrocyte distribution width (RBC) [Ratio] 15.0 % High 11.5-14.5 [facility] Comment on above: Performed By: #### M DIFF, MG3, HEMDF, BMP3M #### [facility] [address] [place] [address] Granulocytes/100 WBC (Bld) 78.9 % Normal 40.0-80.0 [facility] Comment on above: Performed By: #### M DIFF, MG3, HEMDF, BMP3M #### [facility] [address] [place] [address] Hematocrit (Bld) [Volume fraction] 33.4 % Low 35.0-47.0 [facility] Comment on above: Performed By: #### M DIFF, MG3, HEMDF, BMP3M #### [facility] [address] [place] [address] Hemoglobin (Bld) [Mass/Vol] 10.9 g/dL Low 11.7-16.0 [facility] Comment on above: Performed By: #### M DIFF, MG3, HEMDF, BMP3M #### [facility] [address] [place] [address] Lymphocytes (Bld) [#/Vol] 1.3 10*3/uL Normal 1.0-4.3 [facility] Comment on above: Performed By: #### M DIFF, MG3, HEMDF, BMP3M #### [facility] [address] [place] [address] Lymphocytes/100 WBC (Bld) 8.9 % Low 20.0-40.0 [facility] Comment on above: Performed By: #### M DIFF, MG3, HEMDF, BMP3M #### [facility] [address] [place] [address] MCH (RBC) [Entitic mass] 29.8 pg Normal 26.0-34.0 [facility] Comment on above: Performed By: #### M DIFF, MG3, HEMDF, BMP3M #### [facility] [address] [place] [address] MCHC 32.5 % Normal 32.0-36.0 [facility] Comment on above: Performed By: #### M DIFF, MG3, HEMDF, BMP3M #### [facility] [address] [place] [address] MCV (RBC) [Entitic vol] 91.6 fL Normal 79.0-98.0 [facility] Comment on above: Performed By: #### M DIFF, MG3, HEMDF, BMP3M #### [facility] [address] [place] [address] Monocytes (Bld) [#/Vol] 1.6 10*3/uL High 0.0-0.8 [facility] Comment on above: Performed By: #### M DIFF, MG3, HEMDF, BMP3M #### [facility] [address] [place] [address] Monocytes/100 WBC (Bld) 10.9 % High 2.0-10.0 [facility] Comment on above: Performed By: #### M DIFF, MG3, HEMDF, BMP3M #### [facility] [address] [place] [address] Platelet mean volume (Bld) [Entitic vol] 8.6 fL Normal 7.4-12.4 [facility] Comment on above: Result Comment: MPV is a calculated measurement using platelet volume ratio. Performed By: #### M DIFF, MG3, HEMDF, BMP3M #### [facility] [address] [place] [address] Platelets (Bld) [#/Vol] 174 10*3/uL Normal 140-440 [facility] Comment on above: Performed By: #### M DIFF, MG3, HEMDF, BMP3M #### [facility] [address] [place] [address] RBC (Bld) [#/Vol] 3.65 10*6/uL Low 3.80-5.20 [facility] Comment on above: Performed By: #### M DIFF, MG3, HEMDF, BMP3M #### [facility] [address] [place] [address] WBC (Bld) [#/Vol] 14.3 10*3/uL High 3.6-10.7 [facility] Comment on above: Performed By: #### M DIFF, MG3, HEMDF, BMP3M #### [employer] [address] [place] [address] Procalcitoninon 04-12-2022 Procalcitonin 0.76 ng/mL High 0.00-0.09 [facility] Comment on above: Performed By: #### M DIFF, MG3, HEMDF, BMP3M #### [employer] [address] [place] [address] Interpretation See Below [employer] Work Phone: Comment on above: PCT <0.50 = Low risk of severe sepsis and/or septic shock. PCT >2.00 = High risk of severe sepsis and/or septic shock. Interpretation and review of laboratory results Abnormal [employer] Work Phone: Procalcitonin 0.76 ng/mL High 0 - 0.09 ng/mL [employer] Work Phone: Test Performed by [employer], [address] [place] [address] [facility] LAB [employer] Work Phone: RBC MORPHOLOGYon 04-12-2022 Anisocytosis Ql (Bld) Slight [facility] Work Phone: Grenora Cells Slight [facility] Work Phone: Hypochromia Slight [facility] Work Phone: Ovalocytes Slight [facility] Work Phone: Polychromasia Slight [facility] Work Phone: RBC (Bld) [#/Vol] ABNORMAL [facility] Work Phone: Test Performed by [employer], [address] [place], [place] [address] [facility] LAB [facility] Work Phone: RBC Morphologyon 04-12-2022 Anisocytosis Ql (Bld) Slight Normal [facility] Comment on above: Performed By: #### M DIFF, MG3, HEMDF, BMP3M #### [employer] [address] [place] [address] Grenora Cells Slight Normal [facility] Comment on above: Performed By: #### M DIFF, MG3, HEMDF, BMP3M #### [facility] [address] [place] [address] Hypochromia Slight Normal [facility] Comment on above: Performed By: #### M DIFF, MG3, HEMDF, BMP3M #### [facility] [address] [place] [address] Ovalocytes Slight Normal [facility] Comment on above: Performed By: #### M DIFF, MG3, HEMDF, BMP3M #### [facility] [address] [place] [address] Polychromasia Slight Normal [facility] Comment on above: Performed By: #### M DIFF, MG3, HEMDF, BMP3M #### [facility] [address] [place] [address] RBC morphology finding Nom (Bld) ABNORMAL Normal [facility] Comment on above: Performed By: #### M DIFF, MG3, HEMDF, BMP3M #### [facility] [address] [place] [address] Vancomycinon 04-12-2022 Vancomycin 8.5 ug/mL Low 15.0-20.0 [facility] Comment on above: Result Comment: . Performed By: #### M DIFF, BMP3M, HEMDF #### [facility] [address] [place] [address] Vancomycin Level, Randomon 0 04-12-2022 Interpretation and review of laboratory results Abnormal [facility] Vancomycin 8.5 ug/mL Low 15 - 20 ug/mL [facility] Comment on above: . Test Performed by [facility], [address] [place], [place] [address] [facility] LAB [facility] Add On Lab Teston 04-11-[address] [facility] Work Phone: Comment on above: Specimen available & acceptable for analysis. Test Performed by [facility], [address] [place], [place] [address] Added TROPN see [id number] [facility] 04/11/2022 15:35 [facility] LAB [facility] Work Phone: Add On Accepted [facility] Comment on above: Specimen available & acceptable for analysis. Test Performed by [facility], [address] [place] [address] [facility] LAB [facility] Add on test from HISon 04-11 Add on test from HIS Accepted Normal [facility] Comment on above: Order Comment: Added TROPN see [id number] 04/11/2022 15:35 Result Comment: Spec imen available & acceptable for analysis. Performed By: #### M DIFF, BMP3M, HEMDF #### [facility] [address] [place] [address] Add on test from HIS Accepted Normal [facility] Comment on above: Result Comment: Spec imen available & acceptable for analysis. Performed By: #### M DIFF, BMP3M, HEMDF #### [facility] [address] [place] [address] Basic Metabolic Panelon 09-0 Anion gap [Moles/Vol] 6 mmol/L Normal 3-13 [facility] Comment on above: Performed By: #### M DIFF, MG3, HEMDF, BMP3M #### [facility] [address] [place] [address] Calcium [Mass/Vol] 7.7 mg/dL Low 8.4-10.4 [facility] Comment on above: Performed By: #### M DIFF, MG3, HEMDF, BMP3M #### [facility] [address] [place] [address] CO2 [Moles/Vol] 23 mmol/L Normal 22-30 [facility] Comment on above: Performed By: #### M DIFF, MG3, HEMDF, BMP3M #### [facility] [address] [place] [address] Glucose [Mass/Vol] 135 mg/dL High 70-100 [facility] Comment on above: Performed By: #### M DIFF, MG3, HEMDF, BMP3M #### [facility] [address] [place] [address] Urea nitrogen [Mass/Vol] 29 mg/dL High 9-20 [facility] Comment on above: Performed By: #### M DIFF, MG3, HEMDF, BMP3M #### [facility] [address] [place] [address] Creatinine [Mass/Vol] 1.34 mg/dL High 0.52-1.25 [facility] Comment on above: Performed By: #### M DIFF, MG3, HEMDF, BMP3M #### [facility] [address] [place] [address] GFR/1.73 sq M.predicted among blacks MDRD (S/P/Bld) [Vol rate/Area] 45.5 mL/min/{1.73_m2} Abnormal >60 [facility] Comment on above: Performed By: #### M DIFF, MG3, HEMDF, BMP3M #### [facility] [address] [place] [address] GFR/1.73 sq M.predicted among non-blacks MDRD (S/P/Bld) [Vol rate/Area] 39.3 mL/min/{1.73_m2} Abnormal >60 [facility] Comment on above: Result Comment: KDIG O [...] #### M DIFF, MG3, HEMDF, BMP3M #### [facility] [address] [place] [address] Chloride [Moles/Vol] 107 mmol/L Normal 98-107 [facility] Comment on above: Performed By: #### M DIFF, MG3, HEMDF, BMP3M #### [facility] [address] [place] [address] Potassium [Moles/Vol] 3.3 mmol/L Low 3.5-5.1 [facility] Comment on above: Performed By: #### M DIFF, MG3, HEMDF, BMP3M #### [facility] [address] [place] [address] Sodium [Moles/Vol] 137 mmol/L Normal 135-145 [facility] Comment on above: Performed By: #### M DIFF, MG3, HEMDF, BMP3M #### [facility] [address] [place] [address] Basic Metabolic Panel w/ Ref taiwo to MGon 04-11-2022 Anion gap [Moles/Vol] 6 mmol/L 3 - 13 mmol/L [facility] Work Phone: Calcium [Mass/Vol] 7.7 mg/dL Low 8.4 - 10. 4 mg/dL [facility] Work Phone: Chloride [Moles/Vol] 107 mmol/L 98 - 10 7 mmol/L [facility] Work Phone: CO2 [Moles/Vol] 23 mmol/L 22 - 30 mmol/L [facility] Work Phone: Creatinine [Mass/Vol] 1.34 mg/dL High 0.52 - 1.25 mg/dL [facility] Work Phone: EGFR IF NonAfrican South African 39.3 mL/min Abnormal 60 - PINF mL/min [facility] Work Phone: Comment on above: KDIGO guidelines [...] Interpretation and review of laboratory results Abnormal [facility] Work Phone: Potassium [Moles/Vol] 3.3 mmol/L Low 3.5 - 5.1 mmol/L [facility] Work Phone: Sodium [Moles/Vol] 137 mmol/L 135 - 145 mmol/L [facility] Work Phone: Urea nitrogen (BldV) [Mass/Vol] 29 mg/dL High 9 - 20 mg/dL [facility] Work Phone: Test Performed by [facility], [address] [place] [address] LAB [facility] Work Phone: CBC with Auto DifferentialOr dered [...] 11.2 g/dL Low 11.7 - 16 g/dL [facility] Interpretation and review of laboratory results Abnormal [...] 15.1 % High 11.5 - 14.5 % [facility] Platelet mean volume (Bld) [Entitic vol] 8.4 fL 7.4 - 12.4 fL [facility] Comment on above: MPV is a calculated measurement using platelet volume ratio. Platelets (Bld) [#/Vol] 170 10*3/uL 140 - 440 10*3/uL [facility] RBC (Bld) [#/Vol] 3.68 10*6/uL Low 3.8 - 5.2 10*6/uL [facility] WBC (Bld) [#/Vol] 18.2 10*3/uL High 3.6 - 10.7 10*3/uL [facility] CBC with Auto Differentialon 04-11-2022 Test Performed by [facility], [address] [place], [place] [address] [address] [facility] COVID and Resp PCR Panelon 0 04-11-2022 SARS-CoV-2 (COVID-19) RNA IVCKI+probe Ql (Unsp spec) COVID and Resp PCR [...] Panel. _ Expected Result: Not Detected [employer] Upper Respiratory Pathogens PCR Panel can detect the following targets: SARS-CoV-2, Adenovirus, Coronavirus 229E, Coronavirus HKU1, Coronavirus NL63, Coronavirus OC43, Human Metapneumovirus, Human Rhinovirus/Enterovi elma, Influenza A, Influenza B, Parainfluenza Virus 1, Parainfluenza Virus 2, Parainfluenza Virus 3, Parainfluenza Virus 4, Respiratory Syncytial Virus, Bordetella pertussis, Bordetella parapertussis, Chlamydia pneumoniae, Mycoplasma pneumoniae. Method: Real-time PCR. Normal [facility] Comment on above: Performed By: #### M DIFF, BMP3M, HEMDF #### [facility] [address] [place] [address] Fluoroscopy modified barium swallow with videoon 04-11-2022 Radiology Study observation (narrative) [facility] Work Phone: Hemogram w/ Autodiffon 04-11 Abs Baso Cnt 0.1 10*3/uL Normal 0.0-0.2 [facility] Comment on above: Performed By: #### M DIFF, MG3, HEMDF, BMP3M #### [facility] [address] [place] [address] Abs Neutrophile Cnt 15.3 10*3/uL High 1.8-7.0 [facility] Comment on above: Performed By: #### M DIFF, MG3, HEMDF, BMP3M #### [facility] [address] [place] [address] Basophils/100 WBC (Bld) 0.3 % Normal 0.0-2.0 S [facility] Comment on above: Performed By: #### M DIFF, MG3, HEMDF, BMP3M #### [facility] [address] [place] [address] Eosinophils (Bld) [#/Vol] 0.0 10*3/uL Normal 0.0-0.5 [facility] Comment on above: Performed By: #### M DIFF, MG3, HEMDF, BMP3M #### [facility] [address] [place] [address] Eosinophils/100 WBC (Bld) 0.1 % Low 1.0-6.0 [facility] Comment on above: Performed By: #### M DIFF, MG3, HEMDF, BMP3M #### [facility] [address] [place] [address] Erythrocyte distribution width (RBC) [Ratio] 15.1 % High 11.5-14.5 [facility] Comment on above: Performed By: #### M DIFF, MG3, HEMDF, BMP3M #### [facility] [address] [place] [address] Granulocytes/100 WBC (Bld) 83.9 % High 40.0-80.0 [facility] Comment on above: Performed By: #### M DIFF, MG3, HEMDF, BMP3M #### [facility] [address] [place] [address] Hematocrit (Bld) [Volume fraction] 33.7 % Low 35.0-47.0 [facility] Comment on above: Performed By: #### M DIFF, MG3, HEMDF, BMP3M #### [facility] [address] [place] [address] Hemoglobin (Bld) [Mass/Vol] 11.2 g/dL Low 11.7-16.0 [facility] Comment on above: Performed By: #### M DIFF, MG3, HEMDF, BMP3M #### [facility] [address] [place] [address] Lymphocytes (Bld) [#/Vol] 1.1 10*3/uL Normal 1.0-4.3 [facility] Comment on above: Performed By: #### M DIFF, MG3, HEMDF, BMP3M #### [facility] [address] [place] [address] Lymphocytes/100 WBC (Bld) 5.9 % Low 20.0-40.0 [facility] Comment on above: Performed By: #### M DIFF, MG3, HEMDF, BMP3M #### [facility] [address] [place] [address] MCH (RBC) [Entitic mass] 30.3 pg Normal 26.0-34.0 [facility] Comment on above: Performed By: #### M DIFF, MG3, HEMDF, BMP3M #### [facility] [address] [place] [address] MCHC 33.2 % Normal 32.0-36.0 [facility] Comment on above: Performed By: #### M DIFF, MG3, HEMDF, BMP3M #### [facility] [address] [place] [address] MCV (RBC) [Entitic vol] 91.5 fL Normal 79.0-98.0 [facility] Comment on above: Performed By: #### M DIFF, MG3, HEMDF, BMP3M #### [facility] [address] [place] [address] Monocytes (Bld) [#/Vol] 1.8 10*3/uL High 0.0-0.8 [facility] Comment on above: Performed By: #### M DIFF, MG3, HEMDF, BMP3M #### [facility] [address] [place] [address] Monocytes/100 WBC (Bld) 9.8 % Normal 2.0-10.0 [facility] Comment on above: Performed By: #### M DIFF, MG3, HEMDF, BMP3M #### [facility] [address] [place] [address] Platelet mean volume (Bld) [Entitic vol] 8.4 fL Normal 7.4-12.4 [facility] Comment on above: Result Comment: MPV is a calculated measurement using platelet volume ratio. Performed By: #### M DIFF, MG3, HEMDF, BMP3M #### [facility] [address] [place] [address] Platelets (Bld) [#/Vol] 170 10*3/uL Normal 140-440 [facility] Comment on above: Performed By: #### M DIFF, MG3, HEMDF, BMP3M #### [facility] [address] [place] [address] RBC (Bld) [#/Vol] 3.68 10*6/uL Low 3.80-5.20 [facility] Comment on above: Performed By: #### M DIFF, MG3, HEMDF, BMP3M #### [facility] [address] [place] [address] WBC (Bld) [#/Vol] 18.2 10*3/uL High 3.6-10.7 [facility] Comment on above: Performed By: #### M DIFF, MG3, HEMDF, BMP3M #### [facility] [address] [place] [address] LEGIONELLA AG, URINEon 04-11 LEGIONELLA AG, URINE LEGIONELLA AG, URINE --> Status: F Legionella antigen NOT DETECTED. Normal [facility] Comment on above: Performed By: #### M DIFF, BMP3M, HEMDF #### [facility] [address] [place] [address] Lactate, Sepsison 04-11-2022 Lactate [Moles/Vol] 0.9 mmol/L 0.7 - 2 mmol/L [facility] Test Performed by [facility], [facility] [address] [place] [address] [facility] Lactic Acid, Sepsison 2021 Lactate [Moles/Vol] 0.9 mmol/L Normal 0.7-2.0 [facility] Comment on above: Performed By: #### M DIFF, MG3, HEMDF, BMP3M #### [facility] [address] [place] [address] Legionella Antigen, Urineon 04-11-2022 LEGIONELLA ANTIGEN Not detected [facility] Work Phone: Magnesiumon 04-11-2022 Magnesium [Mass/Vol] 1.8 mg/dL Normal 1.6-2.3 [facility] Comment on above: Performed By: #### M DIFF, MG3, HEMDF, BMP3M #### [facility] [address] [place] [address] Magnesium [Mass/Vol] 1.8 mg/dL 1.6 - 2 .3 mg/dL [facility] Work Phone: Test Performed by [facility], [address] [place] [address] [facility] Work Phone: No Panel Informationon 04-11 Test Performed by [facility], [address] [place] [address] [address] [facility] Work Phone: Procalcitoninon 04-11-2022 Interpretation See Below Normal [facility] Comment on above: Result Comment: PCT <0.50 = Low risk of severe sepsis and/or septic shock. PCT >2.00 = High risk of severe sepsis and/or septic shock. Performed By: #### M DIFF, MG3, HEMDF, BMP3M #### [facility] [address] [place] [place] [address] RBC Morphologyon 04-11-2022 Anisocytosis Ql (Bld) Slight Normal [facility] Comment on above: Performed By: #### M DIFF, MG3, HEMDF, BMP3M #### [facility] [address] [place] [address] RBC morphology finding Nom (Bld) ABNORMAL Normal [facility] Comment on above: Performed By: #### M DIFF, MG3, HEMDF, BMP3M #### [facility] [address] [place] [place] [address] RF Swallowing Function w/ Vi deoon 04-11-2022 RF Swallowing Function w/ Video Patient Name: UBALDO ARANGO Fluoroscopy ACCESSION EXAM DATE/TIME PROCEDURE ORDERING PROVIDER [id number] 04/11/2022 12:45 EDT RF Swallowing Function PRICILA MARIE w/ Video CPT code 32683 Reason For Exam (RF Swallowing Function w/ [...] piriform sinuses. Pharyngeal Phase: Transient laryngeal penetration. Trommald: Oral Phase: Premature pharyngeal spillage to valleculae. [...] Transcribed Date and Time: 04/12/2022 5:24 Normal [facility] Respiratory Panel, Molecular , with COVID-19 (Restricted: peds pts or suitable admitted adults)on 04-11-2022 Respiratory Panel Molecular, with COVID NEGATIVE: No targets were detected by the [employer] Upper Respiratory Pathogens PCR Panel. _ Expected [...] Chlamydia pneumoniae, Mycoplasma pneumoniae. Method: Real-time PCR. [facility] Test Performed by [employer], [address] [place] [address] [facility] ELECTRICIAN RADIO Modified Barium Swallow Studyon 04-11-2022 ELECTRICIAN RADIO Modified Barium Swallow Study Patient Name: UBALDO ARANGO Fluoroscopy ACCESSION EXAM DATE/TIME PROCEDURE ORDERING PROVIDER [id number] 04/11/2022 12:45 EDT ELECTRICIAN RADIO Modified Barium 5813 -PRICILA MCLEOD Swallow Study Reason For Exam (ELECTRICIAN RADIO Modified Barium Swallow Study) Sepsis, unspecified organism [...] cracker pieces coated with Varibar honey Varibar Trommald presented via cup. Varibar Thin Liquid presented [...] Dictated on Final Dictating Physician: FABBY LAMAR, KHLOE/ELECTRICIAN RADIO, RAQUEL Signed Date and Time: 04/11/2022 3:43 pm Signed by: FABBY LAMAR, KHLOE/RAQUEL ALLEN Transcribed Date and Time: 04/11/2022 3:44 Normal [facility] ELECTRICIAN RADIO video swallowon 04-11-20 Patient Name: UBALDO ARANGO Fluoroscopy ACCESSION EXAM DATE/TIME PROCEDURE ORDERING PROVIDER [id number] 04/11/2022 12:45 EDT ELECTRICIAN RADIO Modified Barium PRICILA MARIE Swallow Study Reason For Exam (ELECTRICIAN RADIO Modified Barium Swallow Study) Sepsis, unspecified organism [...] cracker pieces coated with Varibar honey Varibar Trommald presented via cup. Varibar Thin Liquid presented [...] --- Final --- Dictating Physician: FABBY LAMAR, KHLOE/RAQUEL ALLEN Signed Date and Time: 04/11/2022 3:43 pm Signed by: FABBY LAMAR, KHLOE/RAQUEL ALLEN Transcribed Date and Time: 04/11/2022 3:44 [facility] Result, Unknown Provider - 04/11/2022 Patient Name: UBALDO ARANGO Fluoroscopy ACCESSION EXAM DATE/TIME PROCEDURE ORDERING PROVIDER [id number] 04/11/2022 12:45 EDT ELECTRICIAN RADIO Modified Barium Vikas13 PRICILA JIN Swallow Study Reason For Exam (ELECTRICIAN RADIO Modified Barium Swallow Study) Sepsis, unspecified organism [...] cracker pieces coated with Varibar honey Varibar Trommald presented via cup. Varibar Thin Liquid presented [...] --- Final --- Dictating Physician: FABBY LAMAR, KHLOE/ELECTRICIAN RADIORAQUEL Signed Date and Time: 04/11/2022 3:43 pm Signed by: FABBY LAMAR, KHLOE/ELECTRICIAN RADIORAQUEL Transcribed Date and Time: 04/11/2022 3:44 [facility] Work Phone: ELECTRICIAN RADIO video swallowOrdered By: Unknown Result on 04-11-2022 [facility] STREP PNEUMO ANTIGEN, URINEo n 04-11-2022 STREP PNEUMO ANTIGEN, URINE STREP PNEUMO ANTIGEN, URINE --> Status: F Strep pneumo antigen NOT DETECTED. Normal [facility] Comment on above: Performed By: #### M DIFF, BMP3M, HEMDF #### [facility] [address] [place] [address] STREP PNEUMONIAE ANTIGENon 0 04-11-2022 STREP PNEUMONIAE ANTIGEN, URINE Not detected [facility] Work Phone: Troponinon 04-11-2022 Troponin I.cardiac [Mass/Vol] 0.027 ng/mL 0 - 0.034 ng/mL [facility] Work Phone: Comment on above: . Test Performed by [facility], [address] [place], [place] [address] [facility] Work Phone: Troponin Ion 04-11-2022 Troponin I.cardiac [Mass/Vol] 0.027 ng/mL Normal 0.000-0.034 [facility] Comment on above: Result Comment: . Performed By: #### M DIFF, MG3, HEMDF, BMP3M #### [facility] [address] [place] [address] Basic Metabolic Panelon 09-0 Anion gap [Moles/Vol] 8 mmol/L Normal 3-13 [facility] Comment on above: Performed By: #### M DIFF, BMP3M, HEMDF #### [facility] [address] [place] [address] Calcium [Mass/Vol] 8.7 mg/dL Normal 8.4-10.4 [facility] Comment on above: Performed By: #### M DIFF, BMP3M, HEMDF #### [facility] [address] [place] [address] CO2 [Moles/Vol] 27 mmol/L Normal 22-30 [facility] Comment on above: Performed By: #### M DIFF, BMP3M, HEMDF #### [facility] [address] [place] [address] Creatinine [Mass/Vol] 1.40 mg/dL High 0.52-1.25 [facility] Comment on above: Performed By: #### M DIFF, BMP3M, HEMDF #### [facility] [address] [place] [address] GFR/1.73 sq M.predicted among blacks MDRD (S/P/Bld) [Vol rate/Area] 43.2 mL/min/{1.73_m2} Abnormal >60 [facility] Comment on above: Performed By: #### M DIFF, BMP3M, HEMDF #### [facility] [address] [place] [address] GFR/1.73 sq M.predicted among non-blacks MDRD (S/P/Bld) [Vol rate/Area] 37.2 mL/min/{1.73_m2} Abnormal >60 [facility] Comment on above: Result Comment: KDIG O [...] By: #### M DIFF, BMP3M, HEMDF #### [facility] [address] [place] [address] Glucose [Mass/Vol] 134 mg/dL High 70-100 [facility] Comment on above: Performed By: #### M DIFF, BMP3M, HEMDF #### [facility] [address] [place] [address] Urea nitrogen [Mass/Vol] 35 mg/dL High 9-20 [facility] Comment on above: Performed By: #### M DIFF, BMP3M, HEMDF #### [facility] [address] [place] [address] Potassium [Moles/Vol] 3.9 mmol/L Normal 3.5-5.1 [facility] Comment on above: Performed By: #### M DIFF, BMP3M, HEMDF #### [facility] [address] [place] [address] Sodium [Moles/Vol] 135 mmol/L Normal 135-145 [facility] Comment on above: Performed By: #### M DIFF, BMP3M, HEMDF #### [facility] [address] [place] [address] Chloride [Moles/Vol] 100 mmol/L Normal 98-107 [facility] Comment on above: Performed By: #### M DIFF, BMP3M, HEMDF #### [facility] [address] [place] [address] Anion gap [Moles/Vol] 8 mmol/L 3 - 13 mmol/L [facility] Calcium [Mass/Vol] 8.7 mg/dL 8.4 - 10. 4 mg/dL [facility] Chloride [Moles/Vol] 100 mmol/L 98 - 10 7 mmol/L [facility] CO2 [Moles/Vol] 27 mmol/L 22 - 30 mmol/L [facility] Creatinine [Mass/Vol] 1.4 mg/dL High 0.52 - 1.25 mg/dL [facility] EGFR IF NonAfrican South African 37.2 mL/min Abnormal 60 - PINF mL/min [facility] Comment on above: KDIGO guidelines pro vide [...] 0.0 10*3/uL 0 - 0.2 10*3/uL [facility] Absolute Neut # 17.8 10*3/uL High 1.8 - 7 10*3/uL [facility] MCHC (RBC) [Mass/Vol] 33.0 % 32 - 36 % [facility] Platelet distribution width (Bld) [Ratio] 15.1 % High 11.5 - 14.5 % [facility] CR Chest Portableon 04-10-20 22 CR Chest Portable Patient Name: UBALDO ARANGO Diagnostic Radiology ACCESSION EXAM DATE/TIME PROCEDURE ORDERING PROVIDER [id number] 04/10/2022 21:01 EDT CR Chest Portable NILO KENNEDY CPT code 39544 Reason For Exam (CR Chest Portable) fever, [...] Transcribed Date and Time: 04/10/2022 9:05 Normal [facility] Complete Urinalysison 2021 Appearance (U) Ex.Turbid Abnormal Clear [facility] Comment on above: Result Comment: . Performed By: #### M DIFF, MG3, HEMDF, BMP3M #### [facility] [address] [place] [address] Bacteria Many Abnormal Negative [facility] Comment on above: Result Comment: . Performed By: #### M DIFF, MG3, HEMDF, BMP3M #### [facility] [address] [place] [address] Bilirubin,Urine Negative Normal Negative [facility] Comment on above: Result Comment: . Performed By: #### M DIFF, MG3, HEMDF, BMP3M #### [facility] [address] [place] [address] Cast, Hyaline 0 - 2 Abnormal Negative [facility] Comment on above: Result Comment: . Performed By: #### M DIFF, MG3, HEMDF, BMP3M #### [facility] [address] [place] [address] Color (U) Yellow Normal Lt. Yellow [facility] Comment on above: Result Comment: . Performed By: #### M DIFF, MG3, HEMDF, BMP3M #### [facility] [address] [place] [address] Glucose Ql (U) Normal Normal Normal (<70) [facility] Comment on above: Result Comment: . Performed By: #### M DIFF, MG3, HEMDF, BMP3M #### [facility] [address] [place] [address] Ketone,Urine Negative Normal Negative [facility] Comment on above: Result Comment: . Performed By: #### M DIFF, MG3, HEMDF, BMP3M #### [facility] [address] [place] [address] Leukocytes,Urine 500 Johnnie/uL Abnormal Negative [facility] Comment on above: Result Comment: . Performed By: #### M DIFF, MG3, HEMDF, BMP3M #### [facility] [address] [place] [address] Mucous Threads Few Normal Negative [facility] Comment on above: Result Comment: . Performed By: #### M DIFF, MG3, HEMDF, BMP3M #### [facility] [address] [place] [address] Nitrites,Urine Positive Abnormal Negative [facility] Comment on above: Result Comment: . Performed By: #### M DIFF, MG3, HEMDF, BMP3M #### [facility] [address] [place] [address] Occult Blood,Urine 0.2 mg/dL Abnormal Negative [facility] Comment on above: Result Comment: . Performed By: #### M DIFF, MG3, HEMDF, BMP3M #### [facility] [address] [place] [address] pH,Urine 6.0 Normal 5.0-8.0 [facility] Comment on above: Result Comment: . Performed By: #### M DIFF, MG3, HEMDF, BMP3M #### [facility] [address] [place] [address] Protein (U) [Mass/Vol] 100 mg/dL Abnormal Negative [facility] Comment on above: Result Comment: . Performed By: #### M DIFF, MG3, HEMDF, BMP3M #### [facility] [address] [place] [address] RBC, Urine 6 - 10 Abnormal 0-2 [facility] Comment on above: Result Comment: . Performed By: #### M DIFF, MG3, HEMDF, BMP3M #### [facility] [address] [place] [address] Specific [place],Urine 1.013 Normal 1.005 - 1.030 [facility] Comment on above: Result Comment: . Performed By: #### M DIFF, MG3, HEMDF, BMP3M #### [facility] [address] [place] [address] Squamous Epithelial 0 - 2 Normal 3-5 [facility] Comment on above: Result Comment: . Performed By: #### M DIFF, MG3, HEMDF, BMP3M #### [facility] [address] [place] [place] [address] Urobilinogen,Urine Normal Normal Normal (0-1) [facility] Comment on above: Result Comment: . Performed By: #### M DIFF, MG3, HEMDF, BMP3M #### [facility] [address] [place] [address] WBC LM.HPF (Urine sed) [#/Area] /[HPF] Abnormal 0-5 [facility] Comment on above: Result Comment: . Performed By: #### M DIFF, MG3, HEMDF, BMP3M #### [facility] [address] [place] [address] White Blood Cell Clump Many Abnormal Negative [facility] Comment on above: Result Comment: . Performed By: #### M DIFF, MG3, HEMDF, BMP3M #### [facility] [address] [place] [place] [address] ED Provider Noteon 2 ED Provider Note [facility] ED EMERGENCY DEPARTMENT ENCOUNTER Pt Name: Ubaldo [...] department for evaluation of fever. Patient centers residential for fever. [facility] staff said she had a seizure 2 [...] pneumonia. Read (more content not included)... 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1950 Requested By: NILO KENNEDY Order Number: [id number] Reading MD: Nilo Kennedy Measurements Intervals [place] Rate: 90 P: 41 VA: 162 QRS: 2 QRSD: 78 T: -57 QT: QTc: 0 Interpretive Statements Sinus rhythm BORDERLINE LEFT AXIS DEVIATION Low voltage, precordial leads Borderline repolarization abnormality No previous ECG available for comparison Electronically Signed On 04-10-2022 21:29:46 EDT by Nilo Kennedy [facility] Nilo Kennedy MD - 04/10/2022 [facility] Test Date: 2022-04-10 Pat Name: UBALDO ARANGO Department: 2AED Room: 16 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 Work Phone: [employer] Work Phone: Hemogram w/ Autodiffon 04-10 Abs Baso Cnt 0.0 10*3/uL Normal 0.0-0.2 [facility] Comment on above: Performed By: #### M DIFF, MG3, HEMDF, BMP3M #### [facility] [address] [place] [address] Abs Neutrophile Cnt 17.8 10*3/uL High 1.8-7.0 [facility] Comment on above: Performed By: #### M DIFF, MG3, HEMDF, BMP3M #### [facility] [address] [place] [address] Basophils/100 WBC (Bld) 0.1 % Normal 0.0-2.0 [facility] Comment on above: Performed By: #### M DIFF, MG3, HEMDF, BMP3M #### [facility] [address] [place] [address] Eosinophils (Bld) [#/Vol] 0.0 10*3/uL Normal 0.0-0.5 [facility] Comment on above: Performed By: #### M DIFF, MG3, HEMDF, BMP3M #### [facility] [address] [place] [address] Eosinophils/100 WBC (Bld) 0.0 % Low 1.0-6.0 [facility] Comment on above: Performed By: #### M DIFF, MG3, HEMDF, BMP3M #### [facility] [address] [place] [address] Erythrocyte distribution width (RBC) [Ratio] 15.1 % High 11.5-14.5 [facility] Comment on above: Performed By: #### M DIFF, MG3, HEMDF, BMP3M #### [place] [address] [place] [address] Granulocytes/100 WBC (Bld) 85.2 % High 40.0-80.0 [facility] Comment on above: Performed By: #### M DIFF, MG3, HEMDF, BMP3M #### [place] [address] [place] [address] Hematocrit (Bld) [Volume fraction] 36.7 % Normal 35.0-47.0 [facility] Comment on above: Performed By: #### M DIFF, MG3, HEMDF, BMP3M #### [place] [address] [place] [address] Hemoglobin (Bld) [Mass/Vol] 12.1 g/dL Normal 11.7-16.0 [facility] Comment on above: Performed By: #### M DIFF, MG3, HEMDF, BMP3M #### [place] [address] [place] [address] Lymphocytes (Bld) [#/Vol] 1.4 10*3/uL Normal 1.0-4.3 [facility] Comment on above: Performed By: #### M DIFF, MG3, HEMDF, BMP3M #### [place] [address] [place] [address] Lymphocytes/100 WBC (Bld) 6.7 % Low 20.0-40.0 [facility] Comment on above: Performed By: #### M DIFF, MG3, HEMDF, BMP3M #### [place] [address] [place] [address] MCH (RBC) [Entitic mass] 30.2 pg Normal 26.0-34.0 [facility] Comment on above: Performed By: #### M DIFF, MG3, HEMDF, BMP3M #### [facility] [address] [place] [address] MCHC 33.0 % Normal 32.0-36.0 [facility] Comment on above: Performed By: #### M DIFF, MG3, HEMDF, BMP3M #### [facility] [address] [place] [address] MCV (RBC) [Entitic vol] 91.6 fL Normal 79.0-98.0 [facility] Comment on above: Performed By: #### M DIFF, MG3, HEMDF, BMP3M #### [facility] [address] [place] [address] Monocytes (Bld) [#/Vol] 1.7 10*3/uL High 0.0-0.8 [facility] Comment on above: Performed By: #### M DIFF, MG3, HEMDF, BMP3M #### [facility] [address] [place] [address] Monocytes/100 WBC (Bld) 8.0 % Normal 2.0-10.0 [facility] Comment on above: Performed By: #### M DIFF, MG3, HEMDF, BMP3M #### [facility] [address] [place] [address] Platelet mean volume (Bld) [Entitic vol] 8.6 fL Normal 7.4-12.4 [facility] Comment on above: MPV is a calculated measurement using platelet volume ratio. Result Comment: MPV is a calculated measurement using platelet volume ratio. Performed By: #### M DIFF, MG3, HEMDF, BMP3M #### [facility] [address] [place] [address] Platelets (Bld) [#/Vol] 210 10*3/uL Normal 140-440 [facility] Comment on above: Performed By: #### M DIFF, MG3, HEMDF, BMP3M #### [facility] [address] [place] [address] RBC (Bld) [#/Vol] 4.01 10*6/uL Normal 3.80-5.20 [facility] Comment on above: Performed By: #### M DIFF, MG3, HEMDF, BMP3M #### [facility] [address] [place] [address] WBC (Bld) [#/Vol] 20.9 10*3/uL High 3.6-10.7 [facility] Comment on above: Performed By: #### M DIFF, MG3, HEMDF, BMP3M #### [facility] [address] [place] [address] Hepatic Functionon 2 ALT [Catalytic activity/Vol] 15 U/L Normal 0-34 [facility] Comment on above: Result Comment: The ALT test is performed by an updated assay method. Please note that the reference intervals have been changed and are now sex specific. Performed By: #### M DIFF, MG3, HEMDF, BMP3M #### [facility] [address] [place] [address] ALP [Catalytic activity/Vol] 64 U/L Normal 38-126 [facility] Comment on above: Performed By: #### M DIFF, MG3, HEMDF, BMP3M #### [facility] [address] [place] [address] AST [Catalytic activity/Vol] 31 U/L Normal 15-46 [facility] Comment on above: Performed By: #### M DIFF, MG3, HEMDF, BMP3M #### [facility] [address] [place] [address] Bilirubin [Mass/Vol] 0.3 mg/dL Normal 0.2-1.3 [facility] Comment on above: Performed By: #### M DIFF, MG3, HEMDF, BMP3M #### [facility] [address] [place] [address] Bilirubin.indirect [Mass/Vol] 0.0 mg/dL Normal 0.0-0.3 [facility] Comment on above: Performed By: #### M DIFF, MG3, HEMDF, BMP3M #### [facility] [address] [place] [address] Protein [Mass/Vol] 7.3 g/dL Normal 6.3-8.2 [facility] Comment on above: Performed By: #### M DIFF, MG3, HEMDF, BMP3M #### [facility] [address] [place] [address] Albumin [Mass/Vol] 3.6 g/dL Normal 3.5-5.0 [facility] Comment on above: Performed By: #### M DIFF, MG3, HEMDF, BMP3M #### [facility] [address] [place] [address] Hepatic Function Panelon Albumin [Mass/Vol] 3.6 g/dL 3.5 - 5 g/dL [facility] ALP (Bld) [Catalytic activity/Vol] 64 U/L 38 - 126 U/L [facility] ALT [Catalytic activity/Vol] 15 U/L 0 - 34 U/L [facility] Comment on above: The ALT test is perf ormed by an updated assay method. Please note that the reference intervals have been changed and are now sex specific. AST [Catalytic activity/Vol] 31 U/L 15 - 46 U/L [facility] Bilirubin [Mass/Vol] 0.3 mg/dL 0.2 - 1 .3 mg/dL [facility] Bilirubin.indirect [Mass/Vol] 0.0 mg/dL 0 - 0.3 mg/dL [facility] Free PSA/Total PSA [Mass fraction] 7.3 g/dL 6.3 - 8.2 g/dL [facility] Lactate, Sepsison 04-10-2022 Lactate [Moles/Vol] 2.7 mmol/L Critically high 0.7 - 2 mmol/L [facility] Test Performed by [facility], [address] [place], [place] [id number] [place] [address] LAB [facility] Lactic Acid, Sepsison 2021 Lactate [Moles/Vol] 2.7 mmol/L Critically high 0.7-2.0 [facility] Comment on above: Performed By: #### M DIFF, MG3, HEMDF, BMP3M #### [facility] [address] [place] [address] Lipaseon 04-10-2022 Lipase [Catalytic activity/Vol] 89 U/L Normal 23-300 [facility] Comment on above: Performed By: #### M DIFF, MG3, HEMDF, BMP3M #### [facility] [address] [place] [address] Lipase [Catalytic activity/Vol] 89 U/L 23 - 300 U/L [facility] Magnesiumon 04-10-2022 Magnesium [Mass/Vol] 2.1 mg/dL Normal 1.6-2.3 [facility] Comment on above: Performed By: #### M DIFF, MG3, HEMDF, BMP3M #### [facility] [address] [place] [address] Magnesium [Mass/Vol] 2.1 mg/dL 1.6 - 2 .3 mg/dL [facility] No Panel Informationon 04-10 Test Performed by [facility], [facility] [address] [facility] Interpretation and review of laboratory results Abnormal [facility] Test Performed by [facility], [facility] [address] [facility] RBC MORPHOLOGYon 04-10-2022 Anisocytosis Ql (Bld) Slight [facility] RBC (Bld) [#/Vol] ABNORMAL [facility] Troponin Ion 04-10-2022 Troponin I.cardiac [Mass/Vol] 0.046 ng/mL High 0.000-0.034 [facility] Comment on above: Result Comment: . Performed By: #### M DIFF, MG3, HEMDF, BMP3M #### [facility] [address] [place] [address] Troponin x1on 04-10-2022 Troponin I.cardiac [Mass/Vol] 0.046 ng/mL High 0 - 0.034 ng/mL [facility] Comment on above: . Test Performed by [facility], [address] LAB [facility] Urinalysison 04-10-2022 Appearance (U) Ex.Turbid Abnormal Clear NA [facility] Comment on above: . Bacteria, UA Many Abnormal Negative /[HPF] [facility] Comment on above: . Bilirubin Urine Negative Negative mg/dL [facility] Comment on above: . Color (U) Yellow Lt. Yellow NA [facility] Comment on above: . Glucose, Ur Normal [...] /[HPF] [facility] Comment on above: . Specific [place], Urine 1.013 [facility] Comment on above: . Squam Epithel, UA 0-2 3 - 5 /[HPF] [facility] Comment on above: . Urobilinogen, Urine Normal Normal ( 0-1) mg/dL [facility] Comment on above: . WBC Clumps, Urine Many Abnormal Negative /[HPF] [facility] Comment on above: . WBC, UA /[HPF] Abnormal 0 - 5 /[HPF] [facility] Comment on above: . Test Performed by [facility], [address] [facility] XR CHEST PORTABLEon 04-10-20 Patient Name: UBALDO ARANGO Diagnostic Radiology ACCESSION EXAM DATE/TIME PROCEDURE ORDERING PROVIDER [id number] 04/10/2022 21:01 EDT CR Chest Portable NILO KENNEDY CPT code 19593 Reason For Exam (CR Chest Portable) fever, [...] JASON Transcribed Date and Time: 04/10/2022 9:[address] [facility] RAD James Sánchez MD - 04/10/2022 Patient Name: UBALDO ARANGO Diagnostic Radiology ACCESSION EXAM DATE/TIME PROCEDURE ORDERING PROVIDER [id number] 04/10/2022 21:01 EDT CR Chest Portable BRENTNILO MOREAU CPT code 75638 Reason For Exam (CR Chest Portable) fever, [...] JASON Transcribed Date and Time: 04/10/2022 9:05 [facility] Work Phone: Radiology Study observation (narrative) [facility] Work Phone: XR CHEST PORTABLEOrdered By: James Sánchez on 04-10-2022 [facility] Work Phone: No Panel Informationon 03-26 Valproic Acid (Depakene) Level 51 ug/mL 50-100 [facility] Work Phone: Basophil percentageon 2021 Cholesterol [Mass/Vol] 196 mg/dL <200 [facility] [place] Work Phone: Comment on above: <200 mg/dL Desirable 200-240 mg/dL Borderline >240 mg/dL High Risk Triglyceride [Mass/Vol] 208 mg/dL <199 [facility] Work Phone: Comment on above: The drugs N-Acetylcy steine and Metamizole may falsely depress this assay.Serum Triglycerides Reference Interval Normal <150 mg/dL Borderline high 150 - 199 mg/dL High 200 - 499 mg/dL Very High > or = 500 mg/dL WBC (Bld) [#/Vol] 9.1 10*3/uL 4.4-11.0 [facility] Work Phone: Blood erythrocytes count (nu mber/volume)on 02-21-2022 RBC (Bld) [#/Vol] 4.74 10*6/uL 4.2-5.4 [facility] Work Phone: Blood hemoglobin measurement (mass/volume)on 02-21-2022 Hemoglobin (Bld) [Mass/Vol] 13.9 g/dL 12.0-15.0 [facility] Work Phone: Blood platelet mean volumeon 02-21-2022 Platelet mean volume (Bld) [Entitic vol] 10.5 fL 6.2-12.0 [facility] Work Phone: Determination of erythrocyte mean corpuscular volume (MCV)on 02-21-2022 MCV (RBC) [Entitic vol] 93.7 fL 81-99 [facility] Work Phone: Hematocrit Auto (Bld) [Volum e fraction]on 02-21-2022 Hematocrit (Bld) [Volume fraction] 44.4 % 37-47 [facility] Work Phone: Laboratory - Hematology and Cell countson 02-21-2022 Erythrocyte distribution width (RBC) [Entitic vol] 52.2 fL 35.1-43.9 [facility] Work Phone: Erythrocyte distribution width (RBC) [Ratio] 15.1 % 11.6-14.6 [facility] Work Phone: MCH (RBC) [Entitic mass] 29.3 pg 27.0-32.0 [facility] Work Phone: MCHC Auto (RBC) [Mass/Vol]on 02-21-2022 MCHC (RBC) [Mass/Vol] 31.3 g/dL 32-36 [facility] Work Phone: Platelets bldon 02-21-2022 Platelets (Bld) [#/Vol] 311 10*3/uL 150-450 [facility] Work Phone: [phone] Serum or plasma cholesterol in HDL measurement (mass/volume)on 02-21-2022 Cholesterol in HDL [Mass/Vol] 48 mg/dL >40 [facility] Work Phone: Comment on above: The drugs N-Acetylcy steine and Metamizole may falsely depress this assay. Reference Range HDL <40 mg/dL Low HDL Cholesterol HDL >or= 60 mg/dL High HDL Cholesterol Serum or plasma cholesterol in VLDL measurement (mass/volume)on 02-21-2022 Cholesterol in VLDL [Mass/Vol] 42 mg/dL 5-40 [facility] Work Phone: Serum or plasma low density lipoprotein (LDL) cholesterol measurement (mass/volume)on 02-21-2022 Cholesterol in LDL [Mass/Vol] 106 mg/dL 0-130 [facility] Work Phone: Basophil percentageon 2021 Chloride [Moles/Vol] 104 mmol/L 98-107 [facility] Work Phone: Glucose [Mass/Vol] 82 mg/dL 74-106 [facility] Work Phone: Potassium [Moles/Vol] 4.3 mmol/L 3.5-5.1 [facility] Work Phone: Sodium [Moles/Vol] 138 mmol/L 136-145 [facility] Work Phone: WBC (Bld) [#/Vol] 9.2 10*3/uL 4.4-11.0 [facility] Work Phone: Blood erythrocytes count (nu mber/volume)on 01-30-2022 RBC (Bld) [#/Vol] 4.29 10*6/uL 4.2-5.4 [facility] Work Phone: Blood hemoglobin measurement (mass/volume)on 01-30-2022 Hemoglobin (Bld) [Mass/Vol] 12.9 g/dL 12.0-15.0 [facility] Work Phone: Blood platelet mean volumeon 01-30-2022 Platelet mean volume (Bld) [Entitic vol] 10.3 fL 6.2-12.0 [facility] Work Phone: Determination of erythrocyte mean corpuscular volume (MCV)on 01-30-2022 MCV (RBC) [Entitic vol] 91.8 fL 81-99 [facility] Work Phone: Hematocrit Auto (Bld) [Volum e fraction]on 01-30-2022 Hematocrit (Bld) [Volume fraction] 39.4 % 37-47 [facility] Work Phone: Laboratory - Chemistry and C hemistry - challengeon 01-30-2022 CO2 [Moles/Vol] 26.0 mmol/L 21.0-32.0 [facility] Work Phone: Urea nitrogen/Creatinine [Mass ratio] 33.9 mg/mg 10-20 [facility] Work Phone: Laboratory - Hematology and Cell countson 01-30-2022 Erythrocyte distribution width (RBC) [Entitic vol] 51.7 fL 35.1-43.9 [facility] Work Phone: Erythrocyte distribution width (RBC) [Ratio] 15.3 % 11.6-14.6 [facility] Work Phone: MCH (RBC) [Entitic mass] 30.1 pg 27.0-32.0 [facility] Work Phone: MCHC Auto (RBC) [Mass/Vol]on 01-30-2022 MCHC (RBC) [Mass/Vol] 32.7 g/dL 32-36 [facility] Work Phone: No Panel Informationon 01-30 Estimated GFR (MDRD) Amer 122 mL/min >60 [facility] Work Phone: Comment on above: GFR Calc Estimated GFR (MDRD) Non-Af Amer 101 mL/min >60 [facility] Work Phone: Comment on above: Non- GFR Calc Platelets bldon 01-30-2022 Platelets (Bld) [#/Vol] 246 10*3/uL 150-450 [facility] Work Phone: Serum or plasma calcium love urement (mass/volume)on 01-30-2022 Calcium [Mass/Vol] 9.4 mg/dL 8.5-10.1 [facility] Work Phone: Serum or plasma creatinine m easurement (mass/volume)on 01-30-2022 Creatinine [Mass/Vol] 0.62 mg/dL 0.55-1.02 [facility] Work Phone: Comment on above: The validity of the calculated GFR & GFRAA in patients over 70 years has not been determined. Clinical correlation is essential. Serum or plasma urea nitroge n measurement (mass/volume)on 01-30-2022 Urea nitrogen [Mass/Vol] 21 mg/dL 7-18 [facility] Work Phone: Thin prep Papanicolaou smear with manual screeningon 01-30-2022 Thin prep Papanicolaou smear with manual screening 8 5-15 [facility] Work Phone: No Panel Informationon 01-25 Valproic Acid (Depakene) Level 40 ug/mL 50-100 [facility] Work Phone: Basophil percentageon 2021 Bilirubin [Mass/Vol] 0.10 mg/dL 0.20-1.00 [facility] Work Phone: Comment on above: For patients on eltr ombopag therapy, use of Dimension [place] TBIL is not recommended. Chloride [Moles/Vol] 105 mmol/L 98-[address] [facility] [address] [facility] Work Phone: Cholesterol [Mass/Vol] 220 mg/dL <200 [facility] Work Phone: Comment on above: <200 mg/dL Desirable 200-240 mg/dL Borderline >240 mg/dL High Risk Glucose [Mass/Vol] 86 mg/dL 74-106 [facility] Work Phone: Potassium [Moles/Vol] 4.6 mmol/L 3.5-5.1 [facility] Work Phone: Protein [Mass/Vol] 7.8 g/dL 6.4-8.2 [facility] Work Phone: Sodium [Moles/Vol] 137 mmol/L 136-145 [facility] Work Phone: Triglyceride [Mass/Vol] 330 mg/dL <199 [facility] Work Phone: Comment on above: The drugs N-Acetylcy steine and Metamizole may falsely depress this assay.Serum Triglycerides Reference Interval Normal <150 mg/dL Borderline high 150 - 199 mg/dL High 200 - 499 mg/dL Very High > or = 500 mg/dL WBC (Bld) [#/Vol] 10.2 10*3/uL 4.4-11.0 [facility] Work Phone: Blood erythrocytes count (nu mber/volume)on 12-25-2021 RBC (Bld) [#/Vol] 4.74 10*6/uL 4.2-5.4 [facility] Work Phone: Blood hemoglobin measurement (mass/volume)on 12-25-2021 Hemoglobin (Bld) [Mass/Vol] 14.0 g/dL 12.0-15.0 [facility] Work Phone: Blood platelet mean volumeon 12-25-2021 Platelet mean volume (Bld) [Entitic vol] 11.0 fL 6.2-12.0 [facility] Work Phone: Determination of erythrocyte mean corpuscular volume (MCV)on 12-25-2021 MCV (RBC) [Entitic vol] 91.8 fL 81-99 [facility] Work Phone: Hematocrit Auto (Bld) [Volum e fraction]on 12-25-2021 Hematocrit (Bld) [Volume fraction] 43.5 % 37-47 [facility] Work Phone: Laboratory - Chemistry and C hemistry - challengeon 12-25-2021 ALP [Catalytic activity/Vol] 68 U/L 45-117 [facility] Work Phone: ALT [Catalytic activity/Vol] 18 U/L 13-56 [facility] Work Phone: CO2 [Moles/Vol] 26.0 mmol/L 21.0-32.0 [facility] Work Phone: Globulin (S) [Mass/Vol] 4.7 g/dL 2.2-4.2 [facility] Work Phone: Urea nitrogen/Creatinine [Mass ratio] 31.7 mg/mg 10-20 [facility] Work Phone: Laboratory - Hematology and Cell countson 12-25-2021 Erythrocyte distribution width (RBC) [Entitic vol] 51.7 fL 35.1-43.9 [facility] Work Phone: Erythrocyte distribution width (RBC) [Ratio] 15.2 % 11.6-14.6 [facility] Work Phone: MCH (RBC) [Entitic mass] 29.5 pg 27.0-32.0 [facility] Work Phone: MCHC Auto (RBC) [Mass/Vol]on 12-25-2021 MCHC (RBC) [Mass/Vol] 32.2 g/dL 32-36 [facility] Work Phone: No Panel Informationon 12-25 Estimated GFR (MDRD) Amer 107 mL/min >60 [facility] Work Phone: Comment on above: GFR Calc Estimated GFR (MDRD) Non-Af Amer 88 mL/min >60 [facility] Work Phone: Comment on above: Non- GFR Calc Valproic Acid (Depakene) Level 44 ug/mL 50-100 [facility] Work Phone: Platelets bldon 12-25-2021 Platelets (Bld) [#/Vol] 277 10*3/uL 150-450 [facility] Work Phone: Serum or plasma albumin love urement (mass/volume)on 12-25-2021 Albumin [Mass/Vol] 3.1 g/dL 3.2-5.0 [facility] Work Phone: Serum or plasma albumin/glob ulin mass ratioon 12-25-2021 Albumin/Globulin [Mass ratio] 0.7 {ratio} 0.9-2.4 [facility] Work Phone: Serum or plasma calcium love urement (mass/volume)on 12-25-2021 Calcium [Mass/Vol] 9.7 mg/dL 8.5-10.1 [facility] Work Phone: Serum or plasma cholesterol in HDL measurement (mass/volume)on 12-25-2021 Cholesterol in HDL [Mass/Vol] 45 mg/dL >40 [facility] Work Phone: Comment on above: The drugs N-Acetylcy steine and Metamizole may falsely depress this assay. Reference Range HDL <40 mg/dL Low HDL Cholesterol HDL >or= 60 mg/dL High HDL Cholesterol Serum or plasma cholesterol in VLDL measurement (mass/volume)on 12-25-2021 Cholesterol in VLDL [Mass/Vol] 66 mg/dL 5-40 [facility] Work Phone: Serum or plasma creatinine m easurement (mass/volume)on 12-25-2021 Creatinine [Mass/Vol] 0.69 mg/dL 0.55-1.02 [facility] Work Phone: Comment on above: The validity of the calculated GFR & GFRAA in patients over 70 years has not been determined. Clinical correlation is essential. Serum or plasma low density lipoprotein (LDL) cholesterol measurement (mass/volume)on 12-25-2021 Cholesterol in LDL [Mass/Vol] 109 mg/dL 0-130 [facility] Work Phone: Serum or plasma urea nitroge n measurement (mass/volume)on 12-25-2021 Urea nitrogen [Mass/Vol] 22 mg/dL 7-18 [facility] Work Phone: Thin prep Papanicolaou smear with manual screeningon 12-25-2021 Thin prep Papanicolaou smear with manual screening 15 U/L 15-37 [facility] Work Phone: Thin prep Papanicolaou smear with manual screening 6 5-15 [facility] Work Phone: Basophil percentageon 2021 Chloride [Moles/Vol] 102 mmol/L 98-107 [facility] Work Phone: Glucose [Mass/Vol] 91 mg/dL 74-106 [facility] Work Phone: Potassium [Moles/Vol] 3.8 mmol/L 3.5-5.1 [facility] Work Phone: [phone] Sodium [Moles/Vol] 137 mmol/L 136-145 [facility] Work Phone: WBC (Bld) [#/Vol] 7.7 10*3/uL 4.4-11.0 [facility] Work Phone: Blood erythrocytes count (nu mber/volume)on 12-12-2021 RBC (Bld) [#/Vol] 4.44 10*6/uL 4.2-5.4 [facility] Work Phone: Blood hemoglobin measurement (mass/volume)on 12-12-2021 Hemoglobin (Bld) [Mass/Vol] 12.9 g/dL 12.0-15.0 [facility] Work Phone: Blood platelet mean volumeon 12-12-2021 Platelet mean volume (Bld) [Entitic vol] 11.5 fL 6.2-12.0 [facility] Work Phone: Determination of erythrocyte mean corpuscular volume (MCV)on 12-12-2021 MCV (RBC) [Entitic vol] 92.1 fL 81-99 [facility] Work Phone: Hematocrit Auto (Bld) [Volum e fraction]on 12-12-2021 Hematocrit (Bld) [Volume fraction] 40.9 % 37-47 [facility] Work Phone: Laboratory - Chemistry and C hemistry - challengeon 12-12-2021 CO2 [Moles/Vol] 29.0 mmol/L 21.0-32.0 [facility] Work Phone: Urea nitrogen/Creatinine [Mass ratio] 24.4 mg/mg 10- [facility] Work Phone: Laboratory - Hematology and Cell countson 12-12-2021 Erythrocyte distribution width (RBC) [Entitic vol] 53.3 fL 35.1-43.9 [facility] Work Phone: Erythrocyte distribution width (RBC) [Ratio] 15.8 % 11.6-14.6 [facility] Work Phone: MCH (RBC) [Entitic mass] 29.1 pg 27.0-32.0 [facility] Work Phone: MCHC Auto (RBC) [Mass/Vol]on 12-12-2021 MCHC (RBC) [Mass/Vol] 31.5 g/dL 32-36 [facility] Work Phone: No Panel Informationon 12-12 Estimated GFR (MDRD) Amer 123 mL/min >60 [facility] Work Phone: Comment on above: GFR Calc Estimated GFR (MDRD) Non-Af Amer 102 mL/min >60 [facility] Work Phone: Comment on above: Non- GFR Calc Platelets bldon 12-12-2021 Platelets (Bld) [#/Vol] 288 10*3/uL 150-450 [facility] Work Phone: Serum or plasma calcium love urement (mass/volume)on 12-12-2021 Calcium [Mass/Vol] 9.1 mg/dL 8.5-10.1 [facility] Work Phone: Serum or plasma creatinine m easurement (mass/volume)on 12-12-2021 Creatinine [Mass/Vol] 0.61 mg/dL 0.55-1.02 [facility] Work Phone: Comment on above: The validity of the calculated GFR & GFRAA in patients over 70 years has not been determined. Clinical correlation is essential. Serum or plasma urea nitroge n measurement (mass/volume)on 12-12-2021 Urea nitrogen [Mass/Vol] 15 mg/dL 7-18 [facility] Work Phone: Thin prep Papanicolaou smear with manual screeningon 12-12-2021 Thin prep Papanicolaou smear with manual screening 6 5-15 [facility] Work Phone: Basophil percentageon 2021 Chloride [Moles/Vol] 101 mmol/L 98-107 [facility] Work Phone: Glucose [Mass/Vol] 94 mg/dL 74-106 [facility] Work Phone: Potassium [Moles/Vol] 4.3 mmol/L 3.5-5.1 [facility] Work Phone: Comment on above: Slight Hemolysis, Re sult may be falsely increased. Sodium [Moles/Vol] 138 mmol/L 136-145 [facility] Work Phone: WBC (Bld) [#/Vol] 9.0 10*3/uL 4.4-11.0 [facility] Work Phone: Blood erythrocytes count (nu mber/volume)on 10-30-2021 RBC (Bld) [#/Vol] 4.63 10*6/uL 4.2-5.4 [facility] Work Phone: Blood hemoglobin measurement (mass/volume)on 10-30-2021 Hemoglobin (Bld) [Mass/Vol] 13.7 g/dL 12.0-15.0 [facility] Work Phone: Blood platelet mean volumeon 10-30-2021 Platelet mean volume (Bld) [Entitic vol] 11.0 fL 6.2-12.0 [facility] Work Phone: Determination of erythrocyte mean corpuscular volume (MCV)on 10-30-2021 MCV (RBC) [Entitic vol] 91.4 fL 81-99 [facility] Work Phone: Hematocrit Auto (Bld) [Volum e fraction]on 10-30-2021 Hematocrit (Bld) [Volume fraction] 42.3 % 37-47 [facility] Work Phone: Laboratory - Chemistry and C hemistry - challengeon 10-30-2021 CO2 [Moles/Vol] 31.0 mmol/L 21.0-32.0 [facility] Work Phone: Urea nitrogen/Creatinine [Mass ratio] 31.2 mg/mg 10-20 [facility] Work Phone: Laboratory - Hematology and Cell countson 10-30-2021 Erythrocyte distribution width (RBC) [Entitic vol] 50.8 fL 35.1-43.9 [facility] Work Phone: Erythrocyte distribution width (RBC) [Ratio] 15.3 % 11.6-14.6 [facility] Work Phone: MCH (RBC) [Entitic mass] 29.6 pg 27.0-32.0 [facility] Work Phone: MCHC Auto (RBC) [Mass/Vol]on 10-30-2021 MCHC (RBC) [Mass/Vol] 32.4 g/dL 32-36 [facility] Work Phone: No Panel Informationon 10-30 Estimated GFR (MDRD) Amer 111 mL/min >60 [facility] Work Phone: Comment on above: GFR Calc Estimated GFR (MDRD) Non-Af Amer 91 mL/min >60 [facility] Work Phone: Comment on above: Non- GFR Calc Platelets bldon 10-30-2021 Platelets (Bld) [#/Vol] 289 10*3/uL 150-450 [facility] Work Phone: Serum or plasma calcium love urement (mass/volume)on 10-30-2021 Calcium [Mass/Vol] 9.2 mg/dL 8.5-10.1 [facility] Work Phone: Serum or plasma creatinine m easurement (mass/volume)on 10-30-2021 Creatinine [Mass/Vol] 0.67 mg/dL 0.55-1.02 [facility] Work Phone: Comment on above: The validity of the calculated GFR & GFRAA in patients over 70 years has not been determined. Clinical correlation is essential. Serum or plasma urea nitroge n measurement (mass/volume)on 10-30-2021 Urea nitrogen [Mass/Vol] 21 mg/dL 7-18 [facility] Work Phone: Thin prep Papanicolaou smear with manual screeningon 10-30-2021 Thin prep Papanicolaou smear with manual screening 6 5-15 [facility] Work Phone: No Panel Informationon 09-25 Valproic Acid (Depakene) Level 52 ug/mL 50-100 [facility] Work Phone: No Panel Informationon 09-20 Valproic Acid (Depakene) Level 50 ug/mL 50-100 [facility] Work Phone: Basophil percentageon 2021 Bilirubin [Mass/Vol] 0.30 mg/dL 0.20-1.00 [facility] Work Phone: Comment on above: For patients on eltr ombopag therapy, use of Dimension [place] TBIL is not recommended. Chloride [Moles/Vol] 105 mmol/L 98-107 [facility] Work Phone: Glucose [Mass/Vol] 85 mg/dL 74-106 [facility] Work Phone: Potassium [Moles/Vol] 4.1 mmol/L 3.5-5.1 [facility] Work Phone: Protein [Mass/Vol] 7.3 g/dL 6.4-8.2 [facility] Work Phone: Sodium [Moles/Vol] 138 mmol/L 136-145 [facility] Work Phone: WBC (Bld) [#/Vol] 7.8 10*3/uL 4.4-11.0 [facility] Work Phone: Blood erythrocytes count (nu mber/volume)on 09-14-2021 RBC (Bld) [#/Vol] 4.31 10*6/uL 4.2-5.4 [facility] Work Phone: Blood hemoglobin measurement (mass/volume)on 09-14-2021 Hemoglobin (Bld) [Mass/Vol] 13.0 g/dL 12.0-15.0 [facility] Work Phone: Blood platelet mean volumeon 09-14-2021 Platelet mean volume (Bld) [Entitic vol] 10.5 fL 6.2-12.0 [facility] Work Phone: Determination of erythrocyte mean corpuscular volume (MCV)on 09-14-2021 MCV (RBC) [Entitic vol] 90.0 fL 81-99 [facility] Work Phone: Hematocrit Auto (Bld) [Volum e fraction]on 02-10-2022 Hematocrit (Bld) [Volume fraction] 38.8 % 37-47 [facility] Work Phone: Laboratory - Chemistry and C hemistry - challengeon 09-14-2021 ALP [Catalytic activity/Vol] 68 U/L 45-117 [facility] Work Phone: ALT [Catalytic activity/Vol] 18 U/L 13-56 [facility] Work Phone: CO2 [Moles/Vol] 28.0 mmol/L 21.0-32.0 [facility] Work Phone: Globulin (S) [Mass/Vol] 4.2 g/dL 2.2-4.2 [facility] Work Phone: Urea nitrogen/Creatinine [Mass ratio] 24.4 mg/mg 10-20 [facility] Work Phone: Laboratory - Hematology and Cell countson 09-14-2021 Erythrocyte distribution width (RBC) [Entitic vol] 49.1 fL 35.1-43.9 [facility] Work Phone: Erythrocyte distribution width (RBC) [Ratio] 14.9 % 11.6-14.6 [facility] Work Phone: MCH (RBC) [Entitic mass] 30.2 pg 27.0-32.0 [facility] Work Phone: MCHC Auto (RBC) [Mass/Vol]on 09-14-2021 MCHC (RBC) [Mass/Vol] 33.5 g/dL 32-36 [facility] Work Phone: No Panel Informationon 09-14 Estimated GFR (MDRD) Amer 99 mL/min >60 [facility] Work Phone: Comment on above: GFR Calc Estimated GFR (MDRD) Non-Af Amer 82 mL/min >60 [facility] Work Phone: Comment on above: Non- GFR Calc Platelets bldon 09-14-2021 Platelets (Bld) [#/Vol] 303 10*3/uL 150-450 [facility] Work Phone: Serum or plasma albumin love urement (mass/volume)on 09-14-2021 Albumin [Mass/Vol] 3.1 g/dL 3.2-5.0 [facility] Work Phone: Serum or plasma albumin/glob ulin mass ratioon 09-14-2021 Albumin/Globulin [Mass ratio] 0.7 {ratio} 0.9-2.4 [facility] Work Phone: Serum or plasma calcium love urement (mass/volume)on 09-14-2021 Calcium [Mass/Vol] 9.0 mg/dL 8.5-10.1 [facility] Work Phone: Serum or plasma creatinine m easurement (mass/volume)on 09-14-2021 Creatinine [Mass/Vol] 0.74 mg/dL 0.55-1.02 [facility] Work Phone: Comment on above: The validity of the calculated GFR & GFRAA in patients over 70 years has not been determined. Clinical correlation is essential. Serum or plasma urea nitroge n measurement (mass/volume)on 09-14-2021 Urea nitrogen [Mass/Vol] 18 mg/dL 7-18 [facility] Work Phone: Thin prep Papanicolaou smear with manual screeningon 09-14-2021 Thin prep Papanicolaou smear with manual screening 16 U/L 15-37 [facility] Work Phone: Thin prep Papanicolaou smear with manual screening 5 5-15 [facility] Work Phone: Basophil percentageon 2021 Bilirubin [Mass/Vol] 0.10 mg/dL 0.20-1.00 [facility] Work Phone: Comment on above: For patients on eltr ombopag therapy, use of Dimension Cle[place] TBIL is not recommended. Chloride [Moles/Vol] 102 mmol/L 98-107 [facility] Work Phone: Glucose [Mass/Vol] 87 mg/dL 74-106 [facility] Work Phone: Potassium [Moles/Vol] 4.3 mmol/L 3.5-5.1 [facility] Work Phone: Comment on above: Slight Hemolysis, Re sult may be falsely increased. Protein [Mass/Vol] 8.0 g/dL 6.4-8.2 [facility] Work Phone: Sodium [Moles/Vol] 137 mmol/L 136-145 [facility] Work Phone: Laboratory - Chemistry and C hemistry - challengeon 08-31-2021 ALP [Catalytic activity/Vol] 82 U/L 45-117 [facility] Work Phone: ALT [Catalytic activity/Vol] 22 U/L 13-56 [facility] Work Phone: CO2 [Moles/Vol] 27.0 mmol/L 21.0-32.0 [facility] Work Phone: Globulin (S) [Mass/Vol] 4.9 g/dL 2.2-4.2 [facility] Work Phone: Urea nitrogen/Creatinine [Mass ratio] 25.6 mg/mg 10-20 [facility] Work Phone: [phone] No Panel Informationon 08-31 Estimated GFR (MDRD) Amer 99 mL/min >60 [facility] Work Phone: Comment on above: GFR Calc Estimated GFR (MDRD) Non-Af Amer 82 mL/min >60 [facility] Work Phone: Comment on above: Non- GFR Calc Serum or plasma albumin love urement (mass/volume)on 08-31-2021 Albumin [Mass/Vol] 3.1 g/dL 3.2-5.0 [facility] Work Phone: Serum or plasma albumin/glob ulin mass ratioon 08-31-2021 Albumin/Globulin [Mass ratio] 0.6 {ratio} 0.9-2.4 [facility] Work Phone: Serum or plasma calcium love urement (mass/volume)on 08-31-2021 Calcium [Mass/Vol] 9.1 mg/dL 8.5-10.1 [facility] Work Phone: Serum or plasma creatinine m easurement (mass/volume)on 08-31-2021 Creatinine [Mass/Vol] 0.74 mg/dL 0.55-1.02 [facility] Work Phone: Comment on above: The validity of the calculated GFR & GFRAA in patients over 70 years has not been determined. Clinical correlation is essential. Serum or plasma urea nitroge n measurement (mass/volume)on 08-31-2021 Urea nitrogen [Mass/Vol] 19 mg/dL 7-18 [facility] Work Phone: Thin prep Papanicolaou smear with manual screeningon 08-31-2021 Thin prep Papanicolaou smear with manual screening 17 U/L 15-37 [facility] Work Phone: Comment on above: Slight Hemolysis, Re sult may be falsely increased. Thin prep Papanicolaou smear with manual screening 8 5-15 [facility] Work Phone: Basophil percentageon 2021 Bilirubin [Mass/Vol] 0.20 mg/dL 0.20-1.00 [facility] Work Phone: Comment on above: For patients on eltr ombopag therapy, use of Dimension [place] TBIL is not recommended. Chloride [Moles/Vol] 106 mmol/L 98-107 [facility] Work Phone: Cholesterol [Mass/Vol] 185 mg/dL <200 [facility] [place] Work Phone: Comment on above: <200 mg/dL Desirable 200-240 mg/dL Borderline >240 mg/dL High Risk Glucose [Mass/Vol] 92 mg/dL 74-106 [facility] Work Phone: Potassium [Moles/Vol] 3.9 mmol/L 3.5-5.1 [facility] Work Phone: Protein [Mass/Vol] 7.4 g/dL 6.4-8.2 [facility] Work Phone: Sodium [Moles/Vol] 140 mmol/L 136-145 [facility] Work Phone: Triglyceride [Mass/Vol] 217 mg/dL [facility] Work Phone: Comment on above: The drugs N-Acetylcy steine and Metamizole may falsely depress this assay.Serum Triglycerides Reference Interval Normal <150 mg/dL Borderline high 150 - 199 mg/dL High 200 - 499 mg/dL Very High > or = 500 mg/dL WBC (Bld) [#/Vol] 6.7 10*3/uL 4.4-11.0 [facility] Work Phone: Blood erythrocytes count (nu mber/volume)on 08-24-2021 RBC (Bld) [#/Vol] 4.49 10*6/uL 4.2-5.4 [facility] Work Phone: Blood hemoglobin measurement (mass/volume)on 08-24-2021 Hemoglobin (Bld) [Mass/Vol] 13.1 g/dL 12.0-15.0 [facility] Work Phone: Blood platelet mean volumeon 08-24-2021 Platelet mean volume (Bld) [Entitic vol] 10.6 fL 6.2-12.0 [facility] Work Phone: Determination of erythrocyte mean corpuscular volume (MCV)on 08-24-2021 MCV (RBC) [Entitic vol] 91.1 fL 81-99 [facility] Work Phone: Hematocrit Auto (Bld) [Volum e fraction]on 08-24-2021 Hematocrit (Bld) [Volume fraction] 40.9 % 37-47 [facility] Work Phone: Laboratory - Chemistry and C hemistry - challengeon 08-24-2021 ALP [Catalytic activity/Vol] 67 U/L 45-117 [facility] Work Phone: ALT [Catalytic activity/Vol] 20 U/L 13-56 [facility] Work Phone: CO2 [Moles/Vol] 27.0 mmol/L 21.0-32.0 [facility] Work Phone: Globulin (S) [Mass/Vol] 4.2 g/dL 2.2-4.2 [facility] Work Phone: Urea nitrogen/Creatinine [Mass ratio] 23.5 mg/mg 10-20 [facility] Work Phone: Laboratory - Hematology and Cell countson 08-24-2021 Erythrocyte distribution width (RBC) [Entitic vol] 50.9 fL 35.1-43.9 [facility] Work Phone: Erythrocyte distribution width (RBC) [Ratio] 15.3 % 11.6-14.6 [facility] Work Phone: MCH (RBC) [Entitic mass] 29.2 pg 27.0-32.0 [facility] Work Phone: MCHC Auto (RBC) [Mass/Vol]on 08-24-2021 MCHC (RBC) [Mass/Vol] 32.0 g/dL 32-36 [facility] Work Phone: No Panel Informationon 08-24 Estimated GFR (MDRD) Amer 102 mL/min >60 [facility] Work Phone: Comment on above: GFR Calc Estimated GFR (MDRD) Non-Af Amer 84 mL/min >60 [facility] Work Phone: Comment on above: Non- GFR Calc Thyroid Stimulating Hormone (TSH) 4.64 uIU/mL 0.358-3.74 [facility] Work Phone: Platelets bldon 08-24-2021 Platelets (Bld) [#/Vol] 306 10*3/uL 150-450 [facility] Work Phone: Serum or plasma albumin love urement (mass/volume)on 08-24-2021 Albumin [Mass/Vol] 3.2 g/dL 3.2-5.0 [facility] Work Phone: Serum or plasma albumin/glob ulin mass ratioon 08-24-2021 Albumin/Globulin [Mass ratio] 0.8 {ratio} 0.9-2.4 [facility] Work Phone: Serum or plasma calcium love urement (mass/volume)on 08-24-2021 Calcium [Mass/Vol] 8.7 mg/dL 8.5-10.1 [facility] Work Phone: Serum or plasma cholesterol in HDL measurement (mass/volume)on 08-24-2021 Cholesterol in HDL [Mass/Vol] 47 mg/dL [facility] Work Phone: Comment on above: The drugs N-Acetylcy steine and Metamizole may falsely depress this assay. Reference Range HDL <40 mg/dL Low HDL Cholesterol HDL >or= 60 mg/dL High HDL Cholesterol Serum or plasma cholesterol in VLDL measurement (mass/volume)on 08-24-2021 Cholesterol in VLDL [Mass/Vol] 43 mg/dL 5-40 [facility] Work Phone: Serum or plasma creatinine m easurement (mass/volume)on 08-24-2021 Creatinine [Mass/Vol] 0.72 mg/dL 0.55-1.02 [facility] Work Phone: Comment on above: The validity of the calculated GFR & GFRAA in patients over 70 years has not been determined. Clinical correlation is essential. Serum or plasma low density lipoprotein (LDL) cholesterol measurement (mass/volume)on 08-24-2021 Cholesterol in LDL [Mass/Vol] 95 mg/dL 0-130 [facility] Work Phone: Serum or plasma urea nitroge n measurement (mass/volume)on 08-24-2021 Urea nitrogen [Mass/Vol] 17 mg/dL 7-18 [facility] Work Phone: Thin prep Papanicolaou smear with manual screeningon 08-24-2021 Thin prep Papanicolaou smear with manual screening 16 U/L 15-37 [facility] Work Phone: Thin prep Papanicolaou smear with manual screening 7 5-15 [facility] Work Phone: No Panel Informationon 08-09 Valproic Acid (Depakene) Level 47 ug/mL 50-100 [facility] Work Phone: Basic Metabolic Panel w/ Ref taiwo to MGOrdered By: Pricila Mcleod on 12-02-2020 Anion gap [Moles/Vol] 6 mmol/L 3 - 13 mmol/L [employer] Work Phone: Calcium [Mass/Vol] 9.1 mg/dL 8.4 - 10. 4 mg/dL [employer] Work Phone: Chloride [Moles/Vol] 109 mmol/L High 98 - 10 7 mmol/L [employer] Work Phone: CO2 [Moles/Vol] 21 mmol/L Low 22 - 30 mmol/L [employer] Work Phone: Creatinine [Mass/Vol] 0.46 mg/dL Low 0.52 - 1.25 mg/dL [employer] Work Phone: EGFR IF NonAfrican South African >90.0 >60 mL/min [facility] Work Phone: Comment on above: KDIGO guidelines [...] MDRD (S/P/Bld) [Vol rate/Area] mL/min/{1.73_m2} >60 mL/min [employer] Work Phone: Glucose [Mass/Vol] 99 mg/dL 70 - 100 mg/dL [employer] Work Phone: Interpretation and review of laboratory results Abnormal [employer] Work Phone: Potassium [Moles/Vol] 4.1 mmol/L 3.5 - 5.1 mmol/L [facility] Work Phone: Sodium [Moles/Vol] 136 mmol/L 135 - 145 mmol/L [employer] Work Phone: Urea nitrogen (BldV) [Mass/Vol] 8 mg/dL 7 - 20 mg/dL [facility] Work Phone: Test Performed by [employer], [address] [place] [id number] [place], [place] [address] Work Phone: CBC Auto DifferentialOrdered By: Pricila Mcleod on 12-02-2020 Absolute Baso # 0.1 10*3/uL 0.0 - 0.2 10*3/uL [employer] Work Phone: Absolute Neut # 6.7 10*3/uL 1.8 - 7.0 10*3/uL [employer] Work Phone: Basophils/100 WBC (Bld) 1.0 % 0.0 - 2.0 % [employer] Work Phone: Eosinophils (Bld) [#/Vol] 0.5 10*3/uL 0.0 - 0.5 10*3/uL [employer] Work Phone: Eosinophils/100 WBC (Bld) 4.5 % 1.0 - 6.0 % [employer] Work Phone: Granulocytes/100 WBC (Bld) 60.5 % 40.0 - 80.0 % [employer] Work Phone: Hematocrit (Bld) [Volume fraction] 36.6 % 35.0 - 47.0 % [employer] Work Phone: Hemoglobin.gastrointesti nal spec 1 Ql (Stl) 11.8 g/dL 11.7 - 16.0 g/dL [employer] Work Phone: Interpretation and review of laboratory results Abnormal [employer] Work Phone: Lymphocytes (Bld) [#/Vol] 2.8 10*3/uL 1.0 - 4.3 10*3/uL [employer] Work Phone: Lymphocytes/100 WBC (Bld) 25.1 % 20.0 - 40.0 % [employer] Work Phone: MCH (RBC) [Entitic mass] 27.7 pg 26. 0 - 34.0 pg [employer] Work Phone: MCHC (RBC) [Mass/Vol] 32.2 % 32.0 - 36.0 % [employer] Work Phone: MCV (RBC) [Entitic vol] 86.2 fL 79.0 - 98.0 fL [employer] Work Phone: Monocytes (Bld) [#/Vol] 1.0 10*3/uL High 0.0 - 0.8 10*3/uL [employer] Work Phone: Monocytes/100 WBC (Bld) 8.9 % 2.0 - 10.0 % [employer] Work Phone: Platelet distribution width (Bld) [Ratio] 16.4 % High 11.5 - 14.5 % [employer] Work Phone: Platelet mean volume (Bld) [Entitic vol] 8.1 fL 7.4 - 10.4 fL [employer] Work Phone: Platelets (Bld) [#/Vol] 355 10*3/uL 140 - 440 10*3/uL [facility] Work Phone: RBC (Bld) [#/Vol] 4.25 10*6/uL 3.80 - 5.2 0 10*6/uL [employer] Work Phone: WBC (Bld) [#/Vol] 11.2 10*3/uL High 3.6 - 10.7 10*3/uL [employer] Work Phone: Test Performed by [employer], [address] 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 After obtaining consent, ultrasound with [...] in the vein. Through this a 5 Moroccan double lumen PICC line was inserted. The [...] Time: 12/02/2020 3:48 [facility] Work Phone: [facility] From [facility] - 12/02/2020 3:48 PM EDT Patient Name: UBALDO ARANGO Special Procedures ACCESSION EXAM DATE/TIME PROCEDURE ORDERING PROVIDER [id number] 12/02/2020 15:39 EDT [facility] Special Angiography 58PRICILA ALVAREZ Procedure Reason For Exam ([facility] Special Angiography Procedure) PICC line for IV Antibiotics; pt will likely need sedation for procedure Report Reason for examination: Need for custodial intravenous access. After obtaining consent, ultrasound with [...] in the vein. Through this a 5 Moroccan double lumen PICC line was inserted. The [...] and Time: 12/02/2020 3:48 [facility] Work Phone: Vancomycin, TroughOrdered By : Naz Madera on 12-02-2020 Vancomycin Tr 19.1 ug/mL 15.0 - 20.0 ug/mL [employer] Work Phone: Comment on above: . Test Performed by [employer], [address] [place], [place] [address] [employer] Work Phone: Basic Metabolic Panel w/ Ref atiwo to MGOrdered By: Pricila Mcleod on 12-01-2020 Anion gap [Moles/Vol] 5 mmol/L 3 - 13 mmol/L [employer] Work Phone: Calcium [Mass/Vol] 9.1 mg/dL 8.4 - 10. 4 mg/dL [employer] Work Phone: Chloride [Moles/Vol] 110 mmol/L High 98 - 10 7 mmol/L [employer] Work Phone: CO2 [Moles/Vol] 23 mmol/L 22 - 30 mmol/L [employer] Work Phone: Creatinine [Mass/Vol] 0.47 mg/dL Low 0.52 - 1.25 mg/dL [employer] Work Phone: EGFR IF NonAfrican South African >90.0 >60 mL/min [employer] Work Phone: Comment on above: KDIGO guidelines [...] MDRD (S/P/Bld) [Vol rate/Area] mL/min/{1.73_m2} >60 mL/min [employer] Work Phone: Glucose [Mass/Vol] 98 mg/dL 70 - 100 mg/dL [employer] Work Phone: Interpretation and review of laboratory results Abnormal [facility] Work Phone: Potassium [Moles/Vol] 3.9 mmol/L 3.5 - 5.1 mmol/L [employer] Work Phone: Sodium [Moles/Vol] 138 mmol/L 135 - 145 mmol/L [employer] Work Phone: Urea nitrogen (BldV) [Mass/Vol] 12 mg/dL 7 - 20 mg/dL [employer] Work Phone: Test Performed by [employer], [address] [place] [id number] [place], [place] [address] Work Phone: CBC Auto DifferentialOrdered By: Pricila Mcleod on 12-01-2020 Hematocrit (Bld) [Volume fraction] 35.8 % 35.0 - 47.0 % [employer] Work Phone: Hemoglobin.gastrointesti nal spec 1 Ql (Stl) 11.7 g/dL 11.7 - 16.0 g/dL [employer] Work Phone: MCH (RBC) [Entitic mass] 27.9 pg 26. 0 - 34.0 pg [employer] Work Phone: MCHC (RBC) [Mass/Vol] 32.7 % 32.0 - 36.0 % [employer] Work Phone: MCV (RBC) [Entitic vol] 85.1 fL 79.0 - 98.0 fL [employer] Work Phone: Platelet distribution width (Bld) [Ratio] 16.4 % High 11.5 - 14.5 % [employer] Work Phone: Platelet mean volume (Bld) [Entitic vol] 9.6 fL 7.4 - 10.4 fL [facility] Work Phone: Platelets (Bld) [#/Vol] 302 10*3/uL 140 - 440 10*3/uL [employer] Work Phone: Comment on above: Giant and large plat elets noted. Revised: Comment was added, verified by KMM at 16:20 on 11/30/20 RBC (Bld) [#/Vol] 4.20 10*6/uL 3.80 - 5.2 0 10*6/uL [employer] Work Phone: WBC (Bld) [#/Vol] 11.7 10*3/uL High 3.6 - 10.7 10*3/uL [employer] Work Phone: Comment on above: Leukocytosis with le ft shift neutrophilia, circulating plasma cells and red cell anisocytosis with agglutination. R/O infection, blood loss/coagulopathy, evolving iron/nutritional deficiencies and/or paraproteinemia. No distinct blasts are seen. donation specialist Revised: Comment was added, verified by KMM at 16:20 on 11/30/20 Hematocrit (Bld) [Volume fraction] 36.5 % 35.0 - 47.0 % [employer] Work Phone: Hemoglobin.gastrointesti nal spec 1 Ql (Stl) 12.0 g/dL 11.7 - 16.0 g/dL [employer] Work Phone: MCH (RBC) [Entitic mass] 27.7 pg 26. 0 - 34.0 pg [employer] Work Phone: MCHC (RBC) [Mass/Vol] 32.7 % 32.0 - 36.0 % [employer] Work Phone: MCV (RBC) [Entitic vol] 84.6 fL 79.0 - 98.0 fL [employer] Work Phone: Platelet distribution width (Bld) [Ratio] 16.7 % High 11.5 - 14.5 % [employer] Work Phone: Platelet mean volume (Bld) [Entitic vol] 8.5 fL 7.4 - 10.4 fL [employer] Work Phone: Platelets (Bld) [#/Vol] 282 10*3/uL 140 - 440 10*3/uL [facility] Work Phone: RBC (Bld) [#/Vol] 4.31 10*6/uL 3.80 - 5.2 0 10*6/uL [facility] Work Phone: WBC (Bld) [#/Vol] 11.3 10*3/uL High 3.6 - 10.7 10*3/uL [facility] Work Phone: Culture, BloodOrdered By: Do bertha Christy on 12-01-2020 Blood Culture, Routine Staphylococcus epidermidis DETECTED; mecA/C DETECTED. Proteus species DETECTED. Presumptive identification performed using Fabric[employer] PCR methodology; confirmatory identification to follow. _ The Fabricly BCID2 PCR Panel can detect the following [...] KPC, NDM, OXA-48-like, VIM, and mcr-1. Abnormal [facility] Work Phone: Blood Culture, Routine Staphylococcus epidermidis Abnormal [facility] Work Phone: Blood Culture, Routine Isolated: [facility] [employer] Work Phone: Blood Culture, Routine Proteus mirabilis Abnormal [facility] Work Phone: Blood Culture, Routine Staphylococcus hominis Abnormal [facility] Work Phone: Blood Culture, Routine Negative Abnormal [employer] Work Phone: [phone] Blood Culture, Routine Isolated: Possible identification: Staphylococcus pettenkoferi Contamination likely unless additional blood culture sets are found to be positive with the same organism. [facility] Work Phone: [phone] Interpretation and review of laboratory results Abnormal [facility] Work Phone: [phone] Test Performed by [employer], [address] [place] [id number] [facility] Work Phone: Culture, Blood 2Ordered By: Álvaro Christy on 12-01-2020 Blood Culture, Routine Staphylococcus epidermidis Abnormal [facility] Work Phone: [phone] Blood Culture, Routine Isolated: For identification and/or sensitivity, refer to culture collected on: 11/27/2020 at 07:48 [[id number]]. [facility] Work Phone: [phone] Blood Culture, Routine Proteus mirabilis Abnormal [facility] Work Phone: Blood Culture, Routine Staphylococcus hominis Abnormal [facility] Work Phone: [phone] Interpretation and review of laboratory results Abnormal [facility] Work Phone: Test Performed by [employer], [address] [place] [id number] [facility] Work Phone: Manual DifferentialOrdered B y: Pricila Mcleod on 12-01-2020 Absolute Baso # 0.0 10*3/uL 0.0 - 0.2 10*3/uL [facility] Work Phone: Absolute Eos # 0.5 10*3/uL 0.0 - 0.5 10*3/uL [employer] Work Phone: [phone] Absolute Lymph # 3.6 10*3/uL 1.1 - 4.5 10*3/uL [employer] Work Phone: [phone] Absolute Tyler # 0.9 10*3/uL 0.2 - 1.1 10*3/uL [employer] Work Phone: Absolute Neut # 6.1 10*3/uL [...] 2 % Abnormal <1 [facility] Work Phone: nRBC 1 /100{WBCs} High -1 - 0 /100{WBCs} [facility] Work Phone: Comment on above: (<60 days) 1 -10 Adult <1 Other Cells, Blood 2 % Abnormal <1 [facility] Work Phone: Ovalocytes Slight [facility] Work Phone: RBC (Bld) [#/Vol] ABNORMAL [facility] Work Phone: Seg Neutrophils 52 % 40 - 80 % [facility] Work Phone: TOTAL CELLS COUNTED 100 [facility] Work Phone: Absolute Baso # 0.0 10*3/uL 0.0 - 0.2 10*3/uL [facility] Work Phone: Absolute Eos # 0.6 10*3/uL High 0.0 - 0.5 10*3/uL [facility] Work Phone: Absolute Lymph # 3.5 10*3/uL 1.1 - 4.5 10*3/uL [facility] Work Phone: Absolute Tyler # 0.9 10*3/uL 0.2 - 1.1 10*3/uL [facility] Work Phone: Absolute Neut # 6.3 10*3/uL 2.2 - 8.2 10*3/uL [facility] Work Phone: [phone] Anisocytosis Slight [facility] Work Phone: Atypical Lymphocytes 2 % Abnormal <1 [facility] Work Phone: Bands 1 % 0 - 3 % [facility] Work Phone: Basophils/100 WBC (Bld) 0 % 0 - 2 % S [facility] Work Phone: [phone] Eosinophils/100 WBC (Bld) 5 % 1 - 6 % [facility] Work Phone: [phone] Lymphocytes/100 WBC (Bld) 29 % 20 - 40 % [facility] Work Phone: [phone] Monocytes/100 WBC (Bld) 8 % 2 - 10 % S [facility] Work Phone: [phone] Ovalocytes Slight [facility] Work Phone: [phone] Poikilocytes Slight [facility] Work Phone: [phone] RBC (Bld) [#/Vol] ABNORMAL [facility] Work Phone: [phone] Seg Neutrophils 55 % 40 - 80 % [facility] Work Phone: [phone] TOTAL CELLS COUNTED 100 [facility] Work Phone: [phone] No Panel InformationOrdered By: Pricila Mcleod on 12-01-2020 Interpretation and review of laboratory results Abnormal [facility] Work Phone: Test Performed by [employer], [address] [place], [place] [address] [facility] Work Phone: [phone] Interpretation and review of laboratory results Abnormal [facility] Work Phone: Test Performed by [employer], [address] [place], [place] [address] [facility] Work Phone: PROCALCITONINOrdered By: Chr istina Harsha on 12-01-2020 Interpretation See Below [employer] Work Phone: Comment on above: PCT <0.50 = Low risk of severe sepsis and/or septic shock. PCT >2.00 = High risk of severe sepsis and/or septic shock. Interpretation and review of laboratory results Abnormal [employer] Work Phone: Procalcitonin 1.07 ng/mL Abnormal <0.10 [employer] Work Phone: Test Performed by [employer], [address] [place] [address] [employer] Work Phone: Basic Metabolic Panel w/ Ref taiwo to MGOrdered By: Pricila Mcleod on 11-30-2020 Anion gap [Moles/Vol] 5 mmol/L 3 - 13 mmol/L [employer] Work Phone: Calcium [Mass/Vol] 9.3 mg/dL 8.4 - 10. 4 mg/dL [employer] Work Phone: Chloride [Moles/Vol] 106 mmol/L 98 - 10 7 mmol/L [employer] Work Phone: CO2 [Moles/Vol] 27 mmol/L 22 - 30 mmol/L [employer] Work Phone: Creatinine [Mass/Vol] 0.5 mg/dL Low 0.52 - 1.25 mg/dL [employer] Work Phone: EGFR IF NonAfrican South African >90.0 >60 mL/min [employer] Work Phone: Comment on above: KDIGO guidelines [...] 70 - 100 mg/dL [facility] Work Phone: [phone] Interpretation and review of laboratory results Abnormal [facility] Work Phone: [phone] Potassium [Moles/Vol] 4.0 mmol/L 3.5 - 5.1 mmol/L [facility] Work Phone: [phone] Sodium [Moles/Vol] 139 mmol/L 135 - 145 mmol/L [facility] Work Phone: [phone] Urea nitrogen (BldV) [Mass/Vol] 16 mg/dL 7 - 20 mg/dL [facility] Work Phone: Test Performed by [employer], [address] [place] [address] [facility] Work Phone: Vancomycin, TroughOrdered By : Naz Madera on 11-30-2020 Interpretation and review of laboratory results Abnormal [facility] Work Phone: Vancomycin Tr 11.5 ug/mL Low 15.0 - 20.0 ug/mL [facility] Work Phone: [phone] Comment on above: . Test Performed by [employer], [address] [place], [place] [address] [facility] Work Phone: Basic Metabolic PanelOrdered By: [...] [Mass/Vol] 0.62 mg/dL 0.52 - 1.25 mg/dL [employer] Work Phone: EGFR IF NonAfrican South African >90.0 >60 mL/min [facility] Work Phone: Comment [...] [Mass/Vol] 95 mg/dL 70 - 100 mg/dL [facility] Work Phone: Potassium [Moles/Vol] 4.3 mmol/L 3.5 - 5.1 mmol/L [facility] Work Phone: Sodium [Moles/Vol] 135 mmol/L 135 - 145 mmol/L [employer] Work Phone: Urea nitrogen (BldV) [Mass/Vol] 19 [...] (Bld) 62.0 % 40.0 - 80.0 % [facility] Work Phone: Hematocrit (Bld) [Volume fraction] 36.0 % 35.0 - 47.0 % [facility] Work Phone: Hemoglobin.gastrointesti nal spec 1 Ql (Stl) 12.0 g/dL 11.7 - 16.0 g/dL [facility] Work Phone: Interpretation and review of laboratory results Abnormal [employer] Work Phone: Lymphocytes (Bld) [#/Vol] 2.2 10*3/uL 1.0 - 4.3 10*3/uL [facility] Work Phone: Lymphocytes/100 WBC (Bld) 20.4 % 20.0 - 40.0 % [facility] Work Phone: MCH (RBC) [Entitic mass] 28.9 pg 26. 0 - 34.0 pg [facility] Work Phone: MCHC (RBC) [Mass/Vol] 33.4 % 32.0 - 36.0 % [facility] Work Phone: MCV (RBC) [Entitic vol] 86.5 fL 79.0 - 98.0 fL [facility] Work Phone: Monocytes (Bld) [#/Vol] 1.8 10*3/uL High 0.0 - 0.8 10*3/uL [employer] Work Phone: Monocytes/100 WBC (Bld) 16.2 % High 2.0 - 10.0 % [employer] Work Phone: Platelet distribution width (Bld) [Ratio] 16.6 % High 11.5 - 14.5 % [employer] Work Phone: Platelet mean volume (Bld) [Entitic vol] 8.0 fL 7.4 - 10.4 fL [employer] Work Phone: Platelets (Bld) [#/Vol] 214 10*3/uL 140 - 440 10*3/uL [employer] Work Phone: RBC (Bld) [#/Vol] 4.16 10*6/uL 3.80 - 5.2 0 10*6/uL [employer] Work Phone: WBC (Bld) [#/Vol] 11.0 10*3/uL High 3.6 - 10.7 10*3/uL [employer] Work Phone: Test Performed by [employer], [address] [place] [address] [employer] Work Phone: Culture, UrineOrdered By: Do bertha Christy on 11-29-2020 Bacteria identified Cx Nom (U) Escherichia coli Abnormal [employer] Work Phone: Bacteria identified Cx Nom (U) >100,000 CFU/ml This phenotype is suggestive of an ESBL-producing organism. Treatment with beta-lactam antibiotics other than carbapenems may not be effective. An ID consult may be warranted. [employer] Work Phone: Interpretation and review of laboratory results Abnormal [employer] Work Phone: Test Performed by [employer], [address] [place] [address] [employer] Work Phone: ECHO Complete 2D W Doppler W ColorOrdered By: Naz Madera on 11-29-2020 TRANSTHORACIC ECHOCARDIOGRAM PATIENT: Ubaldo Arango STUDY DATE: 11/29/2020 : 1950 AGE: 70 HT/WT: 157.5 cm (62 82.6 kg in) (181.6 lb) GENDER: F BP: 146 / 72 LOCATION: [facility] PATIENT Inpatient [facility] STATUS: *ORDERING PHYSICIAN: * Naz Madera *READING PHYSICIAN: * Nithin OvalleRESIDENTIAL PEST CONTROL TECHNICIAN: * Delphine Pappas, DO, FSVM, FACC RDCS, [...] Ventricular septum Value (more content not included)... [employer] Work Phone: Mahin, [facility] Incoming Cardiology Results From [facility] - 11/29/2020 11:04 AM EDT TRANSTHORACIC ECHOCARDIOGRAM PATIENT: Ubaldo Arango STUDY DATE: 11/29/2020 : 1950 AGE: 70 HT/WT: 157.5 cm (62 82.6 kg in) (181.6 lb) GENDER: F BP: 146 / 72 LOCATION: [facility] PATIENT Inpatient [facility] STATUS: *ORDERING PHYSICIAN: * Naz MaderaREADING PHYSICIAN: * Nithin *RESIDENTIAL PEST CONTROL TECHNICIAN: * Delphine Pappas, DO, FSVM, FACC RDCS, [...] Hg --------- Yoana (more content not included)... [employer] Work Phone: Hemoglobin [id number] By: Krishna Madera on 11-29-2020 HbA1c (Bld) [Mass fraction] 5.5 % [facility] Work Phone: [phone] Comment on above: Normal less than 5.7 % Prediabetes 5.7% to 6.4% Diabetes 6.5% or higher --HgbA1C levels may not be accurate in patients who have renal disease, received recent blood transfusions, are anemic, or who have dyshemoglobinemia. Magnesium [Mass/Vol] 111 mg/dL [facility] Work Phone: [phone] Test Performed by [employer], [address] Work Phone: [phone] MagnesiumOrdered By: Naz Madera on 11-29-2020 Interpretation and review of laboratory results Abnormal [facility] Work Phone: [phone] Magnesium [Mass/Vol] 2.5 mg/dL High 1.6 - 2 .3 mg/dL [facility] Work Phone: [phone] No Panel InformationOrdered By: Naz Madera on 11-29-2020 Test Performed by [employer], [address] Work Phone: [phone] POCT GlucoseOrdered By: Solomon Madera on 11-29-2020 Glucose [Mass/Vol] 91 mg/dL 70 - 100 mg/dL [facility] Work Phone: [phone] Comment on above: Test performed by [employer] ucose meter. Results may be 10%-15% lower than serum/plasma values. (CLIA ID [id number]) Test Performed by [employer], [address] Work Phone: [phone] PROCALCITONINOrdered By: Yaniv Madera on 11-29-2020 Interpretation See Below [facility] Work Phone: [phone] Comment on above: PCT <0.50 = Low risk of severe sepsis and/or septic shock. PCT >2.00 = High risk of severe sepsis and/or septic shock. Interpretation and review of laboratory results Abnormal [facility] Work Phone: [phone] Procalcitonin 4.62 ng/mL Abnormal <0.10 [facility] Work Phone: [phone] Test Performed by [employer], [address] [place] [address] [facility] Work Phone: [phone] RBC MORPHOLOGYOrdered By: Krishna Madera on 11-29-2020 Anisocytosis Ql (Bld) Slight [facility] Work Phone: [phone] RBC (Bld) [#/Vol] ABNORMAL [facility] Work Phone: [phone] Test Performed by [employer], [address] [place], [place] [address] [facility] Work Phone: [phone] Brain Natriuretic PeptideOrd ered By: Naz Madera on 11-28-2020 Interpretation and review of laboratory results Abnormal [facility] Work Phone: [phone] Natriuretic peptide B (Bld) [Mass/Vol] 2222 pg/mL High 0 - 125 pg/mL [facility] Work Phone: [phone] Test Performed by [employer], [address] [place], [place] [address] [facility] Work Phone: [phone] CBC Auto DifferentialOrdered By: Naz Madera on 11-28-2020 Absolute Baso # 0.0 10*3/uL 0.0 - 0.2 10*3/uL [facility] Work Phone: [phone] Absolute Neut # 11.1 10*3/uL High 1.8 - 7.0 10*3/uL [facility] Work Phone: [phone] Basophils/100 WBC (Bld) 0.3 % 0.0 - 2.0 % [facility] Work Phone: [phone] Eosinophils (Bld) [#/Vol] 0.0 10*3/uL 0.0 - 0.5 10*3/uL [facility] Work Phone: [phone] Eosinophils/100 WBC (Bld) 0.0 % Low 1.0 - 6.0 % [facility] Work Phone: Granulocytes/100 WBC (Bld) 85.9 % High 40.0 - 80.0 % [employer] Work Phone: Hematocrit (Bld) [Volume fraction] 35.0 % 35.0 - 47.0 % [employer] Work Phone: Hemoglobin.gastrointesti nal spec 1 Ql (Stl) 11.6 g/dL Low 11.7 - 16.0 g/dL [employer] Work Phone: Interpretation and review of laboratory results Abnormal [employer] Work Phone: Lymphocytes (Bld) [#/Vol] 0.6 10*3/uL Low 1.0 - 4.3 10*3/uL [employer] Work Phone: Lymphocytes/100 WBC (Bld) 4.5 % Low 20.0 - 40.0 % [employer] Phone: MCH (RBC) [Entitic mass] 28.3 pg 26. 0 - 34.0 pg [employer] Work Phone: MCHC (RBC) [Mass/Vol] 33.2 % 32.0 - 36.0 % [employer] Work Phone: MCV (RBC) [Entitic vol] 85.1 fL 79.0 - 98.0 fL [employer] Work Phone: Monocytes (Bld) [#/Vol] 1.2 10*3/uL High 0.0 - 0.8 10*3/uL [employer] Work Phone: Monocytes/100 WBC (Bld) 9.3 % 2.0 - 10.0 % [employer] Work Phone: Platelet distribution width (Bld) [Ratio] 16.2 % High 11.5 - 14.5 % [employer] Work Phone: Platelet mean volume (Bld) [Entitic vol] 7.7 fL 7.4 - 10.4 fL [employer] Work Phone: Platelets (Bld) [#/Vol] 230 10*3/uL 140 - 440 10*3/uL [employer] Work Phone: RBC (Bld) [#/Vol] 4.11 10*6/uL 3.80 - 5.2 0 10*6/uL [employer] Work Phone: WBC (Bld) [#/Vol] 12.9 10*3/uL High 3.6 - 10.7 10*3/uL [employer] Work Phone: Test Performed by [facility], [address] [place] [address] [place], [place] [address] [employer] Work Phone: Comprehensive Metabolic Pane lOrdered By: Naz Madera on 11-28-2020 Albumin [Mass/Vol] 3.6 g/dL 3.5 - 5.0 g/dL [employer] Work Phone: ALP (Bld) [Catalytic activity/Vol] 83 U/L 38 - 126 U/L [employer] Work Phone: ALT [Catalytic activity/Vol] 18 U/L 0 - 34 U/L [employer] Work Phone: Comment on above: The ALT test is perf ormed by an updated assay method. Please note that the reference intervals have been changed and are now sex specific. Anion gap [Moles/Vol] 3 mmol/L 3 - 13 mmol/L [employer] Work Phone: AST [Catalytic activity/Vol] 40 U/L 15 - 46 U/L [employer] Work Phone: Bilirubin [Mass/Vol] 0.4 mg/dL 0.2 - 1 .3 mg/dL [employer] Work Phone: Calcium [Mass/Vol] 9.3 mg/dL 8.4 - 10. 4 mg/dL [employer] Work Phone: Chloride [Moles/Vol] 107 mmol/L 98 - 10 7 mmol/L [employer] Work Phone: CO2 [Moles/Vol] 29 mmol/L 22 - 30 mmol/L [employer] Work Phone: Creatinine [Mass/Vol] 0.78 mg/dL 0.52 - 1.25 mg/dL [employer] Work Phone: EGFR IF NonAfrican South African 76.2 mL/min >60 [facility] Work Phone: Comment on above: KDIGO [...] fraction] 7.3 g/dL 6.3 - 8.2 g/dL [employer] Work Phone: GFR/1.73 sq M.predicted among blacks MDRD (S/P/Bld) [Vol rate/Area] 88.4 mL/min/{1.73_m2} >60 [facility] Work Phone: Glucose [Mass/Vol] 132 mg/dL High 70 - 100 mg/dL [employer] Work Phone: Interpretation and review of laboratory results Abnormal [employer] Work Phone: Potassium [Moles/Vol] 3.4 mmol/L Low 3.5 - 5.1 mmol/L [employer] Work Phone: Sodium [Moles/Vol] 139 mmol/L 135 - 145 mmol/L [employer] Work Phone: Urea nitrogen (BldV) [Mass/Vol] 16 mg/dL 7 - 20 mg/dL [employer] Work Phone: MagnesiumOrdered By: Naz Madera on 11-28-2020 Magnesium [Mass/Vol] 2.1 mg/dL 1.6 - 2 .3 mg/dL [employer] Work Phone: [phone] No Panel InformationOrdered By: Naz Madera on 11-28-2020 Test Performed by [employer], [address] [place] [address] [facility] Work Phone: [phone] POCT GlucoseOrdered By: Alina Christy on 11-28-2020 Glucose [Mass/Vol] 105 mg/dL High 70 - 100 mg/dL [facility] Work Phone: [phone] Comment on above: Test performed by gl ucose meter. Results may be 10%-15% lower than serum/plasma values. (CLIA ID [id number]) Interpretation and review of laboratory results Abnormal [employer] Work Phone: [phone] Test Performed by [employer], [address] [place] [address] [facility] Work Phone: [phone] POCT GlucoseOrdered By: Solomon Madera on 11-28-2020 Glucose [Mass/Vol] 115 mg/dL High 70 - 100 mg/dL [facility] Work Phone: [phone] Comment on above: Test performed by gl ucose meter. Results may be 10%-15% lower than serum/plasma values. (CLIA ID [id number]) Interpretation and review of laboratory results Abnormal [employer] Work Phone: [phone] Test Performed by [employer], [address] [place] [address] [facility] Work Phone: [phone] PROCALCITONINOrdered By: Yaniv Madera on 11-28-2020 Interpretation See Below [facility] Work Phone: [phone] Comment on above: PCT <0.50 = Low risk of severe sepsis and/or septic shock. PCT >2.00 = High risk of severe sepsis and/or septic shock. Interpretation and review of laboratory results Abnormal [employer] Work Phone: [phone] Procalcitonin 3.18 ng/mL Abnormal <0.10 [facility] Work Phone: Test Performed by [employer], [address] [place] [address] [employer] Work Phone: COVID-19, RapidOrdered By: Eliazar Christy on 11-27-2020 SARS-CoV-2 (COVID-19) RNA VICKI+probe Ql (Unsp spec) see below [employer] Work Phone: Comment on above: Not Detected Expected Result: Not Detected _ Isothermal nucleic acid amplification performed on the [employer] System by the [facility] Negative results do not preclude SARS-CoV-2 infection and should not be used as the sole basis for treatment or other patient management decisions. This assay was developed by [facility] and distributed under an Emergency Use Authorization (EUA) granted by the FDA for the qualitative detection of SARS-CoV-2 nucleic acid. Provider and patient fact sheets can be found at https://www.fda.gov/media/255222/download and https://www.fda.gov/media/586371/download. Test Performed by [employer], [address] [facility]. , [place], [place] [address] [employer] Work Phone: Comprehensive Metabolic Pane lOrdered By: Álvaro Christy on 11-27-2020 Albumin [Mass/Vol] 4.1 g/dL 3.5 - 5.0 g/dL [employer] Work Phone: ALP (Bld) [Catalytic activity/Vol] 86 U/L 38 - 126 U/L [facility] Work Phone: ALT [Catalytic activity/Vol] 18 U/L 0 - 34 U/L [facility] Work Phone: Comment on above: The ALT test is perf ormed by an updated assay method. Please note that the reference intervals have been changed and are now sex specific. Anion gap [Moles/Vol] 12 mmol/L 3 - 13 mmol/L [employer] Work Phone: AST [Catalytic activity/Vol] 25 U/L 15 - 46 U/L [facility] Work Phone: Bilirubin [Mass/Vol] 0.4 mg/dL 0.2 - 1 .3 mg/dL [facility] Work Phone: Calcium [Mass/Vol] 10.0 mg/dL 8.4 - 10. 4 mg/dL [facility] Work Phone: Chloride [Moles/Vol] 102 mmol/L 98 - 10 7 mmol/L [facility] Work Phone: CO2 [Moles/Vol] 26 mmol/L 22 - 30 mmol/L [facility] Work Phone: Creatinine [Mass/Vol] 0.8 mg/dL 0.52 - 1.25 mg/dL [facility] Work Phone: EGFR IF NonAfrican South African 74.0 mL/min >60 [facility] Work Phone: Comment on above: KDIGO [...] 8.3 g/dL High 6.3 - 8.2 g/dL [employer] Work Phone: GFR/1.73 sq M.predicted among blacks MDRD (S/P/Bld) [Vol rate/Area] 85.7 mL/min/{1.73_m2} >60 [facility] Work Phone: Glucose [Mass/Vol] 128 mg/dL High 70 - 100 mg/dL [employer] Work Phone: Interpretation and review of laboratory results Abnormal [employer] Work Phone: Potassium [Moles/Vol] 3.8 mmol/L 3.5 - 5.1 mmol/L [employer] Work Phone: Sodium [Moles/Vol] 140 mmol/L 135 - 145 mmol/L [employer] Work Phone: Urea nitrogen (BldV) [Mass/Vol] 17 mg/dL 7 - 20 mg/dL [employer] Work Phone: Test Performed by [employer], [address] [place], [place] [address] , [place] [address] [employer] Work Phone: Hemogram (CBC) w/Auto DiffOr dered By: Álvaro Christy on 11-27-2020 Absolute Baso # 0.0 10*3/uL 0.0 - 0.2 10*3/uL [employer] Work Phone: Absolute Neut # 10.4 10*3/uL High 1.8 - 7.0 10*3/uL [employer] Work Phone: Basophils/100 WBC (Bld) 0.3 % 0.0 - 2.0 % [employer] Work Phone: Eosinophils (Bld) [#/Vol] 0.0 10*3/uL 0.0 - 0.5 10*3/uL [employer] Work Phone: Eosinophils/100 WBC (Bld) 0.0 % Low 1.0 - 6.0 % [employer] Work Phone: Granulocytes/100 WBC (Bld) 84.3 % High 40.0 - 80.0 % [employer] Work Phone: Hematocrit (Bld) [Volume fraction] 39.7 % 35.0 - 47.0 % [employer] Work Phone: Hemoglobin.gastrointesti nal spec 1 Ql (Stl) 13.0 g/dL 11.7 - 16.0 g/dL [employer] Work Phone: Interpretation and review of laboratory results Abnormal [employer] Work Phone: Lymphocytes (Bld) [#/Vol] 0.8 10*3/uL Low 1.0 - 4.3 10*3/uL [employer] Work Phone: Lymphocytes/100 WBC (Bld) 6.2 % Low 20.0 - 40.0 % [employer] Work Phone: MCH (RBC) [Entitic mass] 27.6 pg 26. 0 - 34.0 pg [employer] Work Phone: MCHC (RBC) [Mass/Vol] 32.7 % 32.0 - 36.0 % [employer] Work Phone: MCV (RBC) [Entitic vol] 84.5 fL 79.0 - 98.0 fL [employer] Work Phone: Monocytes (Bld) [#/Vol] 1.1 10*3/uL High 0.0 - 0.8 10*3/uL [employer] Work Phone: Monocytes/100 WBC (Bld) 9.2 % 2.0 - 10.0 % [employer] Work Phone: Platelet distribution width (Bld) [Ratio] 16.2 % High 11.5 - 14.5 % [employer] Phone: Platelet mean volume (Bld) [Entitic vol] 7.6 fL 7.4 - 10.4 fL [employer] Phone: Platelets (Bld) [#/Vol] 332 10*3/uL 140 - 440 10*3/uL [employer] Work Phone: RBC (Bld) [#/Vol] 4.70 10*6/uL 3.80 - 5.2 0 10*6/uL [employer] Work Phone: WBC (Bld) [#/Vol] 12.4 10*3/uL High 3.6 - 10.7 10*3/uL [employer] Work Phone: Test Performed by [employer], [facility] [address] [place], [place] [address] [employer] Work Phone: Lactic Acid, PlasmaOrdered B y: Álvaro Christy on 11-27-2020 Lactate [Moles/Vol] 2 mmol/L 0.7 - 2. 0 mmol/L [employer] Work Phone: Test Performed by [employer], [address] [place] [address]. [place], [place] [address] [employer] Work Phone: PROCALCITONINOrdered By: Errol risa Christy on 11-27-2020 Interpretation See Below [employer] Work Phone: Comment on above: PCT <0.50 = Low risk of severe sepsis and/or septic shock. PCT >2.00 = High risk of severe sepsis and/or septic shock. Interpretation and review of laboratory results Abnormal [employer] Work Phone: Procalcitonin 0.44 ng/mL Abnormal <0.10 [employer] Work Phone: Test Performed by [employer], [address] [place] [address] [employer] Work Phone: Respiratory Panel, Molecular , with COVID-19 (Restricted: peds pts or suitable admitted adults)Ordered By: Álvaro Christy on 11-27-2020 Respiratory Panel Molecular, with COVID NEGATIVE: No targets were detected by the [employer] Upper Respiratory Pathogens PCR Panel. _ Expected Result: Not Detected The [employer] Upper Respiratory Pathogens PCR Panel can detect [...] management decisions. This assay was developed by [employer] and distributed under an Emergency Use Authorization (EUA) granted by the FDA for the qualitative detection of SARS-CoV-2 nucleic acid. Provider and patient fact sheets can be found at https://www.fda.gov /media/536534/downl oad and https://www.fda.gov /media/138393/downl oad. [employer] Work Phone: Test Performed by [employer], [address] [place] [address] [employer] Work Phone: [phone] Troponin [id number] By: Dexter Christy on 11-27-2020 Troponin I.cardiac [Mass/Vol] ng/mL 0.000 - 0.034 ng/mL [employer] Work Phone: Comment on above: . Test Performed by [employer], [address] [facility]. [place], [place] [address] [employer] Work Phone: UrinalysisOrdered By: Álvaro Christy on 11-27-2020 Appearance (U) Turbid Abnormal Clear NA [employer] Work Phone: [phone] Comment on above: . Bacteria, UA Few (1-5) Abnormal Negative /[HPF] [employer] Work Phone: Comment on above: . Bilirubin Urine Negative Negative mg/dL [employer] Work Phone: Comment on above: . Color (U) YELLOW Lt. Yellow NA [employer] Work Phone: [phone] Comment on above: . Glucose, Ur Normal Normal (<70) mg/dL [employer] Work Phone: Comment on above: . Interpretation and review of laboratory results Abnormal [employer] Work Phone: Ketones Ql (U) Negative Negative mg/dL [employer] Work Phone: Comment on above: . LEUKOCYTES, UA 500 Abnormal Negative Johnnie/uL [employer] Work Phone: Comment on above: . Mucous Threads Few Negative /[LPF] [employer] Work Phone: Comment on above: . Nitrite, Urine Negative Negative NA [employer] Work Phone: Comment on above: . Occult Blood,Urine 0.2 mg/dL Abnormal Negative [facility] Work Phone: Comment on above: . pH (U) 6.5 [pH] [facility] Work Phone: Comment on above: . Protein (U) [Mass/Vol] 100 mg/dL Abnormal Negative [facility] Work Phone: Comment on above: . RBC, UA 6-10 Abnormal 0 - 2 /[HPF] [facility] Work Phone: Comment on above: . Specific [place], Urine 1.020 S [facility] Work Phone: Comment on above: . Squam Epithel, UA 3-5 3 - 5 /[HPF] [facility] Work Phone: Comment on above: . Urobilinogen, Urine Normal Normal ( 0-1) mg/dL [facility] Work Phone: Comment on above: . Volume 8-[address] [facility] Work Phone: Comment on above: . WBC, UA 26-50 Abnormal 0 - 5 /[HPF] [facility] Work Phone: Comment on above: . Test Performed by [facility], [address] [place] [address] [address] Work Phone: XR CHEST PORTABLEOrdered By: Álvaro Christy on 11-27-2020 Patient Name: UBALDO ARANGO Diagnostic Radiology ACCESSION EXAM DATE/TIME PROCEDURE ORDERING PROVIDER [id number] 11/27/2020 08:20 EDT CR Chest Portable RONAL ALDRIDGE MD, DONALD L CPT code 94271 Reason For Exam (CR Chest Portable) fever [...] RISA Transcribed Date and Time: 11/27/2020 8:56 [facility] Work Phone: [facility] - 11/27/2020 8:56 AM EDT Patient Name: UBALDO ARANGO Diagnostic Radiology ACCESSION EXAM DATE/TIME PROCEDURE ORDERING PROVIDER [id number] 11/27/2020 08:20 EDT CR Chest Portable RONAL ALDRIDGE MD, DONALD L CPT code 75137 Reason For Exam (CR Chest Portable) fever [...] RISA Transcribed Date and Time: 11/27/2020 8:56 [facility] Work Phone: Vital Signs Date Time Vital Sign Value Performing Clinician Lulú rogers 10-21-2024 18:44-0400 Diastolic blood pressure 86 mm[Hg] Nilo Kennedy MD Work Phone: [facility] [employer] 10-21-2024 18:44-0400 Heart rate 79 /min Nilo Kennedy MD Work Phone: [facility] [employer] 10-21-2024 18:44-0400 Respiratory rate 24 /min Nilo Kennedy MD Work Phone: [facility] [employer] 10-21-2024 18:44-0400 SaO2% (BldA) [Mass fraction] 95 % Nilo Kennedy MD Work Phone: [facility] [employer] 10-21-2024 18:44-0400 Systolic blood pressure 135 mm[Hg] Nilo Kennedy MD Work Phone: [facility] [employer] 10-21-2024 13:27-0400 Body mass index (BMI) [Ratio] 31.09 kg/m2 Nilo Kennedy MD Work Phone: [facility] [facility] 10-21-2024 13:27-0400 Body temperature 96.91 [degF] Nilo Kennedy MD Work Phone: [facility] 10-21-2024 13:27-0400 Body weight 77.11 kg Nilo Kennedy MD Work Phone: [facility] 04-18-2022 19:52-0400 Body temperature 97.81 [degF] Nilo Kennedy MD Work Phone: [facility] 04-18-2022 19:52-0400 Diastolic blood pressure 106 mm[Hg] Nilo Kennedy MD Work Phone: [facility] 04-18-2022 19:52-0400 Heart rate 69 /min Nilo Kennedy MD Work Phone: [facility] 04-18-2022 19:52-0400 Respiratory rate 17 /min Nilo Kennedy MD Work Phone: [facility] 04-18-2022 19:52-0400 SaO2% (BldA) [Mass fraction] 92 % Nilo Kennedy MD Work Phone: [facility] 04-18-2022 19:52-0400 Systolic blood pressure 175 mm[Hg] Nilo Kennedy MD Work Phone: [facility] 04-13-2022 14:11-0400 Body height 157.5 cm Nilo Kennedy MD Work Phone: [facility] 04-10-2022 21:41-0400 Body mass index (BMI) [Ratio] 30.58 kg/m2 Nilo Kennedy MD Work Phone: [facility] 04-10-2022 21:41-0400 Body weight 75.84 kg Nilo Kennedy MD Work Phone: [facility] 12-03-2020 00:05-0400 Body temperature 97.7 [degF] Álvaro Christy MD Work Phone: [employer] Work Phone: 12-03-2020 00:05-0400 Diastolic blood pressure 66 mm[Hg] Álvaro Christy MD Work Phone: [facility] Work Phone: 12-03-2020 00:05-0400 Heart rate 63 /min Álvaro Christy MD Work Phone: [facility] Work Phone: 12-03-2020 00:05-0400 Respiratory rate 30 /min Álvaro Christy MD Work Phone: [employer] Work Phone: 12-03-2020 00:05-0400 SaO2% (BldA) [Mass fraction] 95 % Álvaro Christy MD Work Phone: [employer] Work Phone: 12-03-2020 00:05-0400 Systolic blood pressure 144 mm[Hg] Álvaro Christy MD Work Phone: [facility] Work Phone: 12-01-2020 15:49-0400 Body height 157.5 cm Álvaro Christy MD Work Phone: [employer] Work Phone: 12-01-2020 04:47-0400 Body mass index (BMI) [Ratio] 33.91 kg/m2 Álvaro Christy MD Work Phone: [facility] Work Phone: 12-01-2020 04:47-0400 Body weight 84.09 kg Álvaro Christy MD Work Phone: [facility] Work Phone: Encounters Encounter Date Encounter Type Care Provider Facility Start: 03-01-2025 ambulatory Arden WHEATLEY Facil ity:[facility] Start: 02-17-2025 End: 02-17-2025 ambulatory Dajuan Marks RN [facility] Start: 02-17-2025 End: 02-17-2025 Patient encounter procedure Dajuan Marks RN [facility] Start: 01-27-2025 ambulatory Wale Cadena DIONI Faci lity:[facility] Start: 12-18-2024 End: 12-18-2024 ambulatory Wale Wynneedison WHEATLEY [facility] Work Phone: Start: 12-18-2024 End: 12-18-2024 Departed Referred Wale Cadena -[facility] [address] Start: 12-18-2024 Registered Referred Wale Wynnejose - [facility] [address] Start: 12-18-2024 End: 12-18-2024 ambulatory Wale WHEATLEY Facility:[facility] Start: 11-30-2024 End: 11-30-2024 ambulatory Wale WHEATLEY [facility] Work Phone: Start: 11-30-2024 End: 11-30-2024 Departed Referred Wale Cadena -[facility] [address] Start: 11-30-2024 End: 11-30-2024 ambulatory Wale WHEATLEY Facility:[facility] Start: 11-28-2024 End: 11-28-2024 ambulatory Bruna Nunez RN [facility] Start: 11-28-2024 End: 11-28-2024 Patient encounter procedure Bruna Nunez RN [facility] Start: 11-27-2024 End: 11-27-2024 ambulatory Ayleen Johnson RN [facility] Start: 11-27-2024 End: 11-27-2024 Patient encounter procedure Ayleen Johnson RN [facility] Start: 11-23-2024 End: 11-23-2024 ambulatory Wale Cadena DIONI [facility] Work Phone: Start: 11-23-2024 End: 11-23-2024 Departed Referred Wale Wynnejose -[facility] - [address] Start: 11-23-2024 Registered Referred Wale Couchedison - [facility] [address] Start: 11-23-2024 End: 11-23-2024 ambulatory Wale WHEATLEY Facility:[facility] Start: 10-21-2024 End: 10-21-2024 Emergency department patient visit Nilo Kennedy MD Work Phone: [facility] Comment on above: Acute cough (Primary Dx); Viral upper respiratory tract infection Start: 07-30-2024 ambulatory Wale WHEATLEY Faci lity:[facility] Start: 07-11-2024 End: 07-11-2024 ambulatory Jyoti Forte RN [facility] Start: 07-11-2024 End: 07-11-2024 Patient encounter procedure Jyoti Forte RN [facility] Start: 07-01-2024 End: 07-01-2024 ambulatory Wale WHEATLEY Facility:[facility] Start: 06-17-2024 End: 06-17-2024 ambulatory Wale WHEATLEY Facility:[facility] Start: 05-21-2024 End: 05-21-2024 ambulatory Wale WHEATLEY Facility:[facility] Start: 05-04-2024 End: 05-04-2024 ambulatory Arden WHEATLEY Facility:[facility] Start: 04-28-2024 End: 04-28-2024 ambulatory Arden WHEATLEY Facility:[facility] Start: 04-03-2024 ambulatory Arden WHEATLEY Facil ity:[facility] Start: 04-01-2024 ambulatory Wale WHEATLEY Faci lity:[facility] Start: 03-23-2024 ambulatory Arden WHEATLEY Facil ity:[facility] Start: 03-17-2024 End: 03-17-2024 ambulatory Wale WHEATLEY Facility:[facility] Start: 10-24-2023 End: 10-24-2023 ambulatory [facility] Work Phone: Start: 10-24-2023 End: 10-24-2023 Departed Referred [facility] [address] Start: 09-27-2023 End: 09-27-2023 ambulatory [facility] Work Phone: Start: 09-27-2023 End: 09-27-2023 Departed Referred [facility] [address] Start: 09-20-2023 End: 09-20-2023 ambulatory [facility] Work Phone: Start: 09-20-2023 End: 09-20-2023 Departed Referred [facility] [address] Start: 09-20-2023 Registered Referred [facility] [address] Start: 08-29-2023 End: 08-29-2023 ambulatory [facility] Work Phone: Start: 08-29-2023 End: 08-29-2023 Departed Referred [facility] [address] Start: 08-29-2023 Registered Referred [facility] [address] Start: 08-26-2023 End: 08-26-2023 ambulatory [facility] Work Phone: Start: 08-26-2023 End: 08-26-2023 Departed Referred [facility] [address] Start: 07-31-2023 End: 07-31-2023 ambulatory [facility] Work Phone: Start: 07-31-2023 End: 07-31-2023 Departed Referred [facility] [address] Start: 07-31-2023 Registered Referred [facility] [address] Start: 05-27-2023 End: 05-27-2023 ambulatory [facility] Work Phone: Start: 05-27-2023 End: 05-27-2023 Departed Referred [facility] [address] Start: 05-23-2023 End: 05-23-2023 ambulatory [facility] Work Phone: Start: 05-23-2023 End: 05-23-2023 [facility] [address] Start: 05-23-2023 Registered [facility] [address] Start: 04-26-2023 End: 04-26-2023 Dep[facility]ed [facility] [address] Start: 04-26-2023 [facility] [address] Start: 04-24-2023 End: 04-24-2023 ambulatory [facility] Work Phone: Start: 04-24-2023 End: 04-24-2023 [facility] [address] Start: 04-24-2023 Registered Referred [facility] [address] Start: 03-20-2023 End: 03-20-2023 ambulatory [facility] Work Phone: Start: 03-20-2023 End: 03-20-2023 [facility] [address] Start: 03-06-2023 End: 03-06-2023 ambulatory [facility] Work Phone: Start: 03-06-2023 End: 03-06-2023 [facility] [address] Start: 03-06-2023 [facility] [address] Start: 01-25-2023 End: 01-25-2023 ambulatory [facility] Work Phone: Start: 01-25-2023 End: 01-25-2023 [facility] [address] Start: 01-25-2023 [facility] [address] Start: 01-24-2023 End: 01-24-2023 ambulatory [facility] Work Phone: Start: 01-24-2023 End: 01-24-2023 Departed Referred [facility] [address] Start: 01-22-2023 End: 01-22-2023 ambulatory [facility] Work Phone: Start: 01-22-2023 End: 01-22-2023 Departed Referred [facility] [address] Start: 01-22-2023 Registered Referred [facility] - [address] Start: 12-18-2022 End: 12-18-2022 ambulatory [facility] Work Phone: Start: 12-18-2022 End: 12-18-2022 Departed [facility] [address] Start: 10-24-2022 End: 10-24-2022 ambulatory [facility] Work Phone: Start: 10-24-2022 End: 10-24-2022 Departed [facility] [address] Start: 10-24-2022 Registered Referred [facility] [address] Start: 10-22-2022 End: 10-22-2022 ambulatory [facility] Work Phone: Start: 10-22-2022 End: 10-22-2022 Departed Referred [facility] [address] Start: 09-24-2022 End: 09-24-2022 ambulatory [facility] Work Phone: Start: 09-24-2022 End: 09-24-2022 Departed Referred [facility] [address] Start: 09-24-2022 Registered Referred [facility] - [address] Start: 09-20-2022 End: 09-20-2022 ambulatory [facility] Work Phone: Start: 09-20-2022 End: 09-20-2022 Departed [facility] [address] Start: 07-27-2022 End: 07-27-2022 ambulatory [facility] Work Phone: Start: 07-27-2022 End: 07-27-2022 [facility] Start: 07-27-2022 [facility] Start: 07-26-2022 End: 07-26-2022 ambulatory [facility] Work Phone: Start: 07-26-2022 End: 07-26-2022 [facility] Start: 04-27-2022 End: 04-27-2022 ambulatory [facility] Work Phone: Start: 04-27-2022 End: 04-27-2022 [facility] Start: 04-26-2022 End: 04-26-2022 ambulatory [facility] Work Phone: Start: 04-26-2022 End: 04-26-2022 [facility] Start: 04-26-2022 Registered Referred [facility] [address] Start: 04-23-2022 End: 04-23-2022 Departed Referred [facility] - [address] Start: 04-23-2022 [facility] [address] Start: 04-19-2022 End: 04-19-2022 ambulatory [facility] Work Phone: Start: 04-19-2022 End: 04-19-2022 Departed Referred [facility] - [address] Start: 04-19-2022 [facility] [address] Start: 04-11-2022 End: 04-18-2022 Evaluation and management of inpatient [facility] Start: 04-10-2022 End: 04-18-2022 Evaluation and management of inpatient Nilo Kennedy MD Work Phone: [facility] 2E TELEMETRY Comment on above: Septicemia (HCC) (Pr imary Dx); Hypoxia; Acute cystitis without hematuria; Pneumonia of right middle lobe due to infectious organism Start: 03-26-2022 End: 03-26-2022 ambulatory [facility] Work Phone: Start: 03-26-2022 End: 03-26-2022 Departed Referred [facility] [address] Start: 02-21-2022 End: 02-21-2022 [facility] [address] Start: 01-30-2022 End: 01-30-2022 Departed Referred [facility] - [address] Start: 01-25-2022 End: 01-25-2022 Departed Referred [facility] [address] Start: 12-25-2021 End: 12-25-2021 Departed Referred [facility] - [address] Start: 12-25-2021 Registered Referred [facility] - [address] Start: 12-12-2021 End: 12-12-2021 [facility] [address] Start: 10-30-2021 End: 10-30-2021 [facility] [address] Start: 10-30-2021 [facility] [address] Start: 09-25-2021 End: 09-25-2021 [facility] [address] Start: 09-20-2021 End: 09-20-2021 [facility] [address] Start: 09-20-2021 [facility] [address] Start: 09-14-2021 End: 09-14-2021 [facility] [address] Start: 09-14-2021 [facility] [address] Start: 08-31-2021 End: 08-31-2021 Departed Referred [facility] - [address] Start: 08-31-2021 Registered Referred [facility] 300 Start: 08-24-2021 End: 08-24-2021 Departed Referred [facility] 300 Start: 08-24-2021 Registered Referred [facility] 300 Start: 08-09-2021 End: 08-09-2021 Departed Referred [facility] [address] Start: 11-27-2020 End: 12-03-2020 Evaluation and management of inpatient Álvaro Christy MD Work Phone: [facility] 2E TELEMETRY Comment on above: Urinary tract infect ion with hematuria, site unspecified (Primary Dx); Chronic pain syndrome Procedures Date Procedure Procedure Detail Performing Clinician Start: 11-30-2024 Ethosuximide measurement Wale WHEATLEY Comment on above: Detection Limit = 10 Performed at: [address] [id number] Director: Santosh Salvador MD, Phone: [phone] Start: 11-23-2024 Urnls dip stick/tabl et reagent [...] Start: 04-18-2022 Assay of magnesium Jessee Mcleod 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 TECHNICIAN - 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 Work Phone: Start: 04-18-2022 BASIC METABOLIC PANE L W/ REFLEX TO MG FOR LOW K Pricila Mcleod 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 - 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 Work Phone: Start: 04-17-2022 Assay of magnesium Jessee tavares Harsha [facility] Work Phone: Start: 04-17-2022 BASIC METABOLIC PANE L W/ REFLEX TO MG FOR LOW K Pricila Mcleod [facility] Work Phone: Start: 04-17-2022 Manual Differential panel - Blood Pricila Mcleod [facility] Work Phone: Start: 04-16-2022 Basic metabolic pane l calcium total Moshe [facility] Work Phone: Start: 04-15-2022 Basic metabolic pane l calcium total Moshe [facility] Work Phone: Start: 04-14-2022 BASIC METABOLIC PANE L W/ REFLEX TO MG FOR LOW K Pricila Mcleod [facility] Work Phone: Start: 04-14-2022 Blood count complete auto&auto difrntl wbc Pricila Mcleod [facility] Work Phone: Start: 04-14-2022 Manual Differential panel - Blood Pricila Mcleod [facility] Work Phone: Start: 04-12-2022 Culture bacterial bl ood aerobic w/id isolates Pricila Mcleod [facility] Work Phone: Start: 04-12-2022 CULTURE, BLOOD 1 Eran Mcleod [facility] Work Phone: Start: 04-12-2022 BASIC METABOLIC PANE L W/ REFLEX TO MG FOR LOW K Pricila Mcleod [facility] Work Phone: Start: 04-12-2022 Blood count complete auto&auto difrntl wbc Pricila Mcleod [facility] Work Phone: Start: 04-12-2022 Drug screen quantita tive vancomycin Pricila Mcleod [facility] Work Phone: Start: 04-12-2022 RBC morphology findi ng Nom (Bld) Pricila Mcleod [facility] Work Phone: Start: 04-11-2022 ADD ON LAB TEST Genoveva Mcleod [facility] Work Phone: Start: 04-11-2022 Radiologic exam swal low function contrast study Pricila Harsha [facility] Work Phone: Start: 04-11-2022 ELECTRICIAN RADIO MODIFIED BARIUM SWALLOW STUDY (MBS) Pricila Harsha [facility] Work Phone: Start: 04-11-2022 Assay of magnesium Jessee tavares Harsha [facility] Work Phone: Start: 04-11-2022 BASIC METABOLIC PANE L W/ REFLEX TO MG FOR LOW K Pricila Harsha [facility] Work Phone: Start: 04-11-2022 Speech and language therapy regime Pricila Harsha [facility] Work Phone: Start: 04-11-2022 ADD ON LAB TEST Martir Kumari MD Work Phone: Start: 04-11-2022 LACTATE, SEPSIS [...] Start: 12-02-2020 Special diagnostic procedures Pricila Mcleod 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 TECHNICIAN - [employer]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 Work Phone: Start: 12-02-2020 Drug screen quantita tive vancomycin Naz Madera MD Work Phone: Start: 12-02-2020 BASIC METABOLIC PANE L W/ REFLEX TO MG FOR LOW K Pricila Mcleod 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 TECHNICIAN - 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 Work Phone: Start: 12-02-2020 Blood count complete auto&auto difrntl wbc Pricila Mcleod 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 TECHNICIAN - [employer]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 Work Phone: Start: 12-01-2020 BASIC METABOLIC PANE L W/ REFLEX TO MG FOR LOW K Pricila Mcleod 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 TECHNICIAN - 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 Work Phone: Start: 12-01-2020 Blood count complete auto&auto difrntl wbc Pricila Mcleod 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 TECHNICIAN - 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 Work Phone: Start: 12-01-2020 Manual Differential panel - Blood Pricila Mcleod 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 TECHNICIAN - 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 Work Phone: Start: 11-30-2020 Drug screen quantita tive vancomycin Naz Madera MD Work Phone: Start: 11-30-2020 BASIC METABOLIC PANE L W/ REFLEX TO MG FOR LOW K Pricila Mcleod 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 TECHNICIAN - 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 Work Phone: Start: 11-30-2020 Blood count complete auto&auto difrntl wbc Pricila Mcleod 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 TECHNICIAN - 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 Work Phone: Start: 11-30-2020 Manual Differential panel - Blood Pricila Mcleod 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 TECHNICIAN - 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 Work Phone: Start: 11-29-2020 CULTURE, BLOOD 1 [...] d ev cleared fda spec home use Álvaro Christy MD Work Phone: Start: 11-28-2020 Gluc bld gluc mntr d ev cleared fda spec home use Naz Madera MD Work Phone: Start: 11-28-2020 Comprehensive metabo lic panel Naz Madera MD Work Phone: Start: 11-27-2020 Speech and language therapy regime Naz Madera MD Work Phone: Start: 11-27-2020 Radiologic exam ches t single view Álvaro Christy MD Work Phone: Start: 11-27-2020 COVID-19, RAPID Álvaro Christy MD Work Phone: Start: 11-27-2020 RESPIRATORY PANEL, MOLECULAR, WITH COVID-19 Álvaro Christy MD Work Phone: Start: 11-27-2020 Comprehensive metabo lic panel Álvaro Christy MD Work Phone: Start: 11-27-2020 End: 11-27-2020 Culture bacterial quanttative colony count urine Álvaro Christy MD Work Phone: Start: 11-27-2020 CULTURE, BLOOD 1 Álvaro Christy MD Work Phone: Start: 11-27-2020 Urnls dip stick/tabl et rgnt auto w/o microscopy Álvaro Christy MD Work Phone: Plan of Treatment Date Care Activity Detail Author Start: 04-05-2025 Influenza vaccination S [facility] Start: 08-05-2024 Medicare Advantage Annual Wellness Visit Medicare Advantage Annual Wellness Visit [facility] Start: 2024 RSV Immunization for Adults (1 - 1-dose 75+ series) RSV Immunization for Adults (1 - 1-dose 75+ series) [facility] Start: 04-05-2024 COVID-19 Vaccine ( season) COVID-19 Vaccine ( season) [facility] Start: 04-05-2024 COVID-19 Vaccine ( season) COVID-19 Vaccine ( season) [facility] Start: 04-05-2024 Influenza vaccination Influenza Vacc ine (#1) [facility] Start: 11-30-2023 Diabetes mellitus screening Diabetes Screening [facility] Start: 04-26-2023 End: 04-26-2023 [facility] Start: 04-05-2022 Influenza vaccination Flu vaccine (# 1) [facility] Start: 12-02-2021 Creatinine measurement Creatinine mo nitoring [facility] Work Phone: Start: 12-02-2021 Potassium monitoring Potassium monit oring [facility] Work Phone: Start: 04-05-2021 Influenza vaccination Flu vacc ine (Season Ended) [facility] Work Phone: Start: 2014 Pneumococcal Vaccine : 65+ Years (1 of 1 - PCV) Pneumococcal Vaccine: 65+ Years (1 of 1 - PCV) [facility] Start: 1999 Pneumococcal Vaccine : 50+ Years (1 of 1 - PCV) Pneumococcal Vaccine: 50+ Years (1 of 1 - PCV) [facility] Start: 1999 Zoster Vaccines (1 of 2) Zoster Vacc yvette (1 of 2) [facility] Start: 1968 DTaP/Tdap/Td vaccine (1 - Tdap) DTaP/Tdap/Td vaccine (1 - Tdap) [facility] Start: 1968 DTaP/Tdap/Td Vaccine s (1 - Tdap) DTaP/Tdap/Td Vaccines (1 - Tdap) [facility] Start: 1967 Hepatitis C screening Hepatitis C Sc reening [facility] Start: 1965 COVID-19 Vaccine (1) COVID-19 Vaccin e (1) [facility] Work Phone: Start: 1961 Depression Screening Depression Scre ening [facility] Start: 1949 COVID-19 Vaccine (#1) COVID-19 Vacci ne (#1) [facility] Start: 1949 Screening for malign ant neoplasm of colon [facility] Start: 1949 Screening for osteoporosis Bone Density Scan [facility] Start: 1949 Thyroid stimulating hormone measurement TSH Level [facility] Basic Metabolic Pane l w/ Reflex to MG Basic Metabolic Panel w/ Reflex to MG Lab Routine Daily until discontinued starting 11/30/2020, [address] [facility] Work Phone: Comment on above: Daily until disconti nued starting 11/30/2020, 3 completed End: 04-19-2022 Basic Metabolic Panel w/ Reflex to MG Basic Metabolic Panel w/ Reflex to MG Lab Routine Daily for 3 Days starting 04/17/2022 until 04/19/2022, [address] [facility] Work Phone: Comment on above: Daily for 3 Days sta rting 04/17/2022 until 04/19/2022, 2 completed CBC W Auto Different ial panel - Blood CBC Auto Differential Lab Routine Daily until discontinued starting 11/30/2020, [address] [facility] Work Phone: Comment on above: Daily until disconti nued starting 11/30/2020, 3 completed End: 04-19-2022 CBC W Auto Differential panel - Blood CBC with Auto Differential Lab Routine Daily for 3 Days starting 04/17/2022 until 04/19/2022, 2 [facility] Work Phone: Comment on above: Daily for [...] Occurrences starting 12/01/2020 until 12/03/2020, 1 completed [facility] Work Phone: Comment on above: Q48H for 2 Occurrenc es starting 12/01/2020 until 12/03/2020, 1 completed Payers Date Payer Category Payer Medicare HMO [employer] [id number] 2024 Self-pay [id number] 2024 Unknown [id number] 2020 Private Health Insurance [id number] 1949 Unknown [id number] Medicare Private Health Insurance Unknown [id number] Unknown [id number] Unknown [id number] Unknown [id number] Unknown [id number] Unknown [id number] Unknown [id number] Unknown [id number] Unknown [id number] Unknown [id number] Unknown [id number] 462 Unknown [id number] 462 Unknown [id number] 462 Unknown [id number] 462 Unknown [id number] 462 Social History Date Type Detail Facility Start: 12-01-2020 End: 12-02-2020 Tobacco smoking status [facility] Former smoker [facility] End: 08-05-1979 History of tobacco use Current smoker [facility] Start: 12-02-2020 End: 04-12-2022 Cigarettes smoked current (pack per day) - Reported [facility] Work Phone: Start: 12-01-2020 End: 12-02-2020 Tobacco use and exposure Never used [facility] Start: 1950 Sex Assigned At Not on file S [employer] Work Phone: Exposure to SARS-CoV -2 (event) Not sure [facility] Start: 1950 Sex Assigned At Female [facility] End: 08-05-1979 History of tobacco use Cigarette Smoker [facility] Work Phone: Start: 03-31-2022 End: 04-10-2022 Exposure to SARS-CoV-2 (event) Unable to assess [facility] Start: 04-12-2022 Tobacco use panel [facility] Start: 03-05-2022 Sex Female (finding) [facility] Tobacco smoking stat us ILIS Unknown if ever smoked [facility] Work Phone: Clinical Notes 12-02-2020 to 02-17-2025 Telephone Encounter - Dajuan Marks RN - 02/17/2025 7:05 PM EDTTelephone Encounter - Dajuan Marks RN - 02/17/2025 7:05 PM EDTTelephone Encounter - Bruna Nunez RN - 11/28/2024 4:26 PM EDT Note Date & Type Note Facility 02-17-2025 Telephone encounter Note S: Yennifer DRISCOLL from [employer] spoke with [facility] nurse regarding medication refill. B: Onset of symptoms/concern 02/17/2025. A: Yennifer DRISCOLL from [facility] requesting a medication refill for Hydrocodone 5-325 MG to patient's pharmacy. Yennifer reports that patient has 2-3 tablets left. Allergies and pharmacy verified. R: Advised Yennifer that message will be sent to office for follow up regarding medication refill request, she verbalized understanding. No further needs at this time. Yennifer instructed to call back with new or worsening symptoms. Reason for Disposition Caller requesting a CONTROLLED substance prescription refill (e.g., narcotics, ADHD medicines) Protocols used: Medication Refill and Renewal [id number] [facility] 02-17-2025 Miscellaneous Notes S: Yennifer DRISCOLL from [employer] spoke with [facility] nurse regarding medication refill. B: Onset of symptoms/concern 02/17/2025. A: Yennifer DRISCOLL from [facility] requesting a medication refill for Hydrocodone 5-325 MG to patient's pharmacy. Yennifer reports that patient has 2-3 tablets left. Allergies and pharmacy verified. R: Advised Yennifer that message will be sent to office for follow up regarding medication refill request, she verbalized understanding. No further needs at this time. Yennifer instructed to call back with new or worsening symptoms. 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 R: Page to Dr. Cadena and he will call the ENTRY LEVEL TRUCK DRIVER now. 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 R: Page to Dr. Cadena and he will call the ENTRY LEVEL TRUCK DRIVER now. Reason for Disposition Caller has URGENT medicine question about med that PCP or specialist prescribed and triager unable to answer question Protocols used: Medication Question [id number] documented in this encounter [facility] 11-27-2024 Telephone encounter Note S: Shyanne with [facility] spoke with [facility] nurse regarding medication interaction B: Onset of symptoms/concern n/a A: Patient prescribed IV imipenem, supposed to start tonight. Pharmacy called [facility] and stated that there is an interaction with this medication with Depakote. May increase the likeliness of seizures. R: Paged Dr Cadena with above message from [facility] and Shyanne with [facility] #[phone]. Dr Cadena called [facility]. No further orders at this time. Reason for Disposition [1] Caller has URGENT medicine question about med that PCP or specialist prescribed AND [2] triager unable to answer question Protocols used: Medication Question [id number] [facility] 11-27-2024 Miscellaneous Notes S: Shyanne with [facility] spoke with [facility] nurse regarding medication interaction B: Onset of symptoms/concern n/a A: Patient prescribed IV imipenem, supposed to start tonight. Pharmacy called [facility] and stated that there is an interaction with this medication with Depakote. May increase the likeliness of seizures. R: Paged Dr Cadena with above message from [facility] and Shyanne with [facility] #[phone]. Dr Cadena called [facility]. No further orders at this time. Reason for Disposition [1] Caller has URGENT medicine question about med that PCP or specialist prescribed AND [2] triager unable to answer question Protocols used: Medication Question [id number] documented in this encounter [facility] 10-21-2024 Emergency department Note Gave report and discharge instructions to Álvaro bo. Pt leaves ED in ambulance. [facility] 10-21-2024 Emergency department Note Gave report and discharge instructions to Álvaro bo. Pt leaves ED in ambulance. Called report to Lilia at [facility]. EMERGENCY DEPARTMENT ENCOUNTER Pt Name: Ubaldo [...] She is sent to us from her residential because of increased cough, sneezing, congestion. Patient also had an episode of vomiting. Nursing Notes were reviewed. Limitations to history: Altered mental status/confusion Outside historians: EMS REVIEW OF SYSTEMS Review of Systems: Limited due to patient's history of anoxic brain injury PAST MEDICAL HISTORY Past Medical History: Diagnosis Date Anoxic brain damage (CMS/HCC) Aphasia Aphasia Constipation Convulsions ([facility]/HCC) Dementia (CMS/HCC) Dementia (CMS/HCC) Dysphagia Dysphagia Gastroesophageal [...] In compliance with this authorization, please visit www.fda.gov/media/991728/download or www.fda.gov/media/965284/download to access the applicable information sheets. MAGNESIUM [...] PM PATIENT REFERRED TO: Wale Cadena [address] [facility] [address] [facility] [address] Call in 2 days DISCHARGE MEDICATIONS: [...] MD 10/21/24 1536 documented in this encounter [facility] 10-21-2024 Emergency department Note Called report to Lilia at [facility]. [facility] 10-21-2024 Physician Emergency department Note EMERGENCY DEPARTMENT [...] She is sent to us from her residential because of increased cough, sneezing, congestion. Patient [...] In compliance with this authorization, please visit www.fda.gov/media/845273/download or www.fda.gov/media/736666/download to access the applicable information sheets. MAGNESIUM [...] PM PATIENT REFERRED TO: Wale Cadena [address] [facility] [address] [facility] [address] Call in 2 days DISCHARGE MEDICATIONS: [...] Emergency Medicine Provider Nilo Kennedy MD 10/21/24 2045 [facility] 07-11-2024 Telephone encounter Note S: Barb, Nurse at [facility] [phone] spoke with [facility] nurse regarding medication problem B: Onset of symptoms/concern 07/11/24 A: [facility] patient needs refill of Hydrocodone 5/325 mg one by mouth daily. [facility] pharmacy is [facility] ([facility]) R: Advised Barb that medication is a narcotic and will have to wait until office is open. Barb understands care advice. No further needs at this time. Barb instructed to call back with new or worsening symptoms. Reason for Disposition Caller requesting a CONTROLLED substance prescription refill (e.g., narcotics, ADHD medicines) Protocols used: Medication Refill and Renewal [id number] [facility] 07-11-2024 Miscellaneous Notes S: Barb, Nurse at [facility] [phone] spoke with [facility] nurse regarding medication problem B: Onset of symptoms/concern 07/11/24 A: [facility] patient needs refill of Hydrocodone 5/325 mg one by mouth daily. [facility] pharmacy is [facility] ([facility]) R: Advised Barb that medication is a narcotic and will have to wait until office is open. Barb understands care advice. No further needs at this time. Barb instructed to call back with new or worsening symptoms. Reason for Disposition Caller requesting a CONTROLLED substance prescription refill (e.g., narcotics, ADHD medicines) Protocols used: Medication Refill and Renewal [id number] documented in this encounter [facility] 04-18-2022 History of Presen t illness Narrative Planned for [facility]; active discharge order in place. No new nutrition interventions at this time. Pt continues on Minced and Moist, 2g Na, mildly thick liquids. Pt on appropriate ONS Magic cup BID, which complies with pt's liquid diet order consistency. Magic cup provides 290 kcals, 9 g protein per serving. Continue with current interventions. RD will follow until discharge. Report called to Bill at [facility] Images from the original note were not included. Palliative Progress Note Chief Complaint: Ubaldo Arango is a 71 y.o. female with chief complaint of fevers with seizure on Saturday 9. Palliative care is actively following this patient. Assessment/Plan Assessment/Plan Goals of care Pt is not able to make her own decisions. [place] [facility] [facility] confirmed guardianship(person only not financial) naming Cleveland Arango [phone]( brother) as 1st and Zachary Arango [phone]( sister in law) as 2nd[address] Will place this in the chart. Pt resides at [facility], plans for her to return when [...] this admission 71 yr old female from [facility] presented to the ER via EMS for [...] of care, symptom management and code conversation. 04-18 Met with pt at bedside. Is not [...] Comments: Unable to assess Psychiatric: Comments: calm [place] Symptom Assessment Score [place] Score Pain Score 0 Tiredness Score 0 [...] ROM Expected Impact [] POA Clarified [] RATING CLERK Avoided [] Nursing Function [x] Provider Function for [Harsha CARTER] [] Orders Placed [] Symptom Assessment [] Patient Experience [] Patient / Caregiver Conversation Patient is refusing blood work this morning. Stool collected and sent to lab. Appeared more soft than loose. Pricila Mcleod SENIOR RISK MANAGER notified. Speech Language Pathology Facility/Department: [facility] TELEMET[facility] Dysphagia Treatment Note NAME: Ubaldo Arango [...] Time Session Ended: 11:14 am Mary Mcgrath ELECTRICIAN RADIO Student A mask and gloves were worn [...] ROM Expected Impact [] POA Clarified [] RATING CLERK Avoided [] Nursing Function [] Provider Function [...] not able to make her own decisions. [place] [address] confirmed guardianship(person only not financial) naming Cleveland Arango [phone]( brother) as 1st and Zachary Arango [phone]( sister in law) as 2nd. Will place this in the chart. Pt resides at [facility], plans for her to return when [...] 1 Subjective/Events 71 yr old female from [facility] presented to the ER via EMS for [...] Comments: Unable to assess Psychiatric: Comments: calm [place] Symptom Assessment Score [place] Score Pain Score 0 Tiredness Score 0 [...] note were not included. Hospitalist Progress Note 04/17/[id number]: Please reach me on [employer] patient care issues. [phone]: Please page IMS night Hospitalist for any issues. Subjective: Admit Date: 04/10/2022 PCP: Wale Cadena MD Room#: 249/2492 Interval History: Pt developed loose stools last night Large "blow out" +diarrhea today Didn't want to eat lunch Afebrile ROS unobtainable d/t mentation WBC 14.3K ADULT DIET; Dysphagia - Minced and Moist; Low Sodium (2 gm); Mildly Thick ([place]) ADULT ORAL NUTRITION SUPPLEMENT; Lunch, Dinner; Frozen [...] (E coli)- repeat blood cultures ordered 04/12- 1/2 sets staph epi (likely contaminant) Diarrhea, worsening [...] CNP Division of Hospitalist Medicine Inpatient Medical Services/[facility] Patient is refusing lab work to be drawn as well as vital signs to be obtained. I made Dr. Whyte with [facility] aware. Images from the original note were not included. [facility] - Infectious Diseases Attending Progress Note [...] Sensory: No sensory deficit. Labs: Recent Labs 04/14/22 02404/15/22 0422 04/16/22 0519 NA 146* 142 141 K 3.8 3.8 3.7 CL 117* 111* 111* CO2 24 28 23 BUN 20 16 13 CREATININE 0.67 0.69 0.70 GLUCOSE 98 105* 95 CALCIUM 8.1* 8.8 8.9 Recent Labs 04/14/22 0249 04/16/22 0519 WBC 9.8 14.2* HGB 10.8* 12.0 HCT 32.2* 36.4 PLT 288 410 GRANULOCYTES -- 63.2 LYMPHOPCT -- 26.2 MONOPCT 6 7.0 LABEOS 1 2.5 BASOPCT 0 1.1 NEUTROABS 8.1 9.0* Lab Results Component Value Date/Time [facility] 19.1 12/02/2020 10:32 AM No results found for: CKTOTAL Micro: No results for input(s): COVID19 in the last 72 hours. E. Coli rosario S Lines: Radiography/Echo/Other: Antimicrobials, Start/End Dates: Recent Abx Admin ceFAZolin (ANCEF) 2000 mg in dextrose 4 % 100 mL IVPB (premix) (mg) 2,000 mg New Bag 04/16/22 1236 2,000 mg New Bag 0540 2,000 mg New Bag 04/15/226 Impression: Ubaldo Arango is a 71 y.o. female E. Coli bacteremia from urinary source Clinically stable Ok to complete therapy with PO antibiotics Suggest Cefdinir 300 mg by mouth every 12 hours through 04/19/22 Can DC Cefazolin D/W Dr. [facility] Please re-consult as needed More that 51% total time 25 minutes were spent in counseling (or coordinating care) and in providing discussion regarding Medical history, new microbiological, surgical and radiographic data as well as medical and surgical management options. Images from the original note were not included. Hospitalist Progress Note 04/16/2022 [phone]: Please reach me on [employer] patient care issues. [phone]: Please page IMS night Hospitalist for any issues. Subjective: Admit Date: 04/10/2022 PCP: Wale Cadena MD Room#: 249/2492 Interval History: No overnight issues per nursing Smiling/holding sippy cup and watching television Nods yes/no; blowing kisses Appears comfortable ROS unobtainable d/t cognitive impairment Afebrile ADULT DIET; Dysphagia - Minced and Moist; Low Sodium (2 gm); Mildly Thick ([place]) ADULT ORAL NUTRITION SUPPLEMENT; Lunch, Dinner; Frozen [...] disorder (HCC) Smoker LABS: CBC: Recent Labs 04/14/2224804/16/22518 WBC 9.8 14.2* RBC 3.55* 3.98 HGB 10.8* 12.0 HCT 32.2* 36.4 MCV 90.9 91.4 RDW 15.4* 15.7* PLT 288 410 BMP: Recent Labs 04/14/2224804/15/2242104/16/22 05 NA 146* 142 141 K 3.8 3.8 [...] CNP Division of Hospitalist Medicine Inpatient Medical Services/[facility] Speech Language Pathology Facility/Department: [facility] TELE[facility] Dysphagia Treatment Note NAME: Ubaldo Arango [...] Turning her head to her milk and [place] juice. [] Goal met [x] Progressing as [...] with meals. P: Con't POC. ALEJANDRO Carcamo M.A.CCC/ELECTRICIAN RADIO Time session ended: 853 Total session minutes: [...] Moist; Low Sodium (2 gm); Mildly Thick ([place]) ADULT ORAL NUTRITION SUPPLEMENT; Lunch, Dinner; Frozen [...] 600 mg Oral BID Recent Labs 04/14/22 024 WBC 9.8 HGB 10.8* PLT 288 Recent Labs 04/14/2224804/15/22 0422 NA 146* 142 K 3.8 3.8 CL 117* 111* CO2 24 28 BUN 20 16 CREATININE 0.67 0.69 GLUCOSE 98 105* No results for input(s): AST, ALT, ALB, BILITOT, ALKPHOS in the last 72 hours. No results found for: TRIG, HDL, LDLCALC, CHOL No results found for: PHART, PO2ART, ZOL4ILS No results for input(s): INR in the [...] noted. Assessment E coli bacteremia - positive BC, 04/10 - repeat blood culture -04/12- staph [...] from the original note were not included. [facility] - Infectious Diseases Attending Progress Note Subjective: [...] 70 -- -- -- 04/14/22 0855 (!) 169 (!) 96.7 F (35.9 C) Temporal 70 [...] (L) 04/14/2022248 PLT 288 04/14/2022248 GRANULOCYTES 78.9 04/12/2022 0330 LYMPHOPCT 8.9 (L) 04/12/2022 0330 MONOPCT 6 04/14/2022248 LABEOS 1 04/14/2022248 BASOPCT 0 04/14/2022 0249 NEUTROABS 8.1 04/14/2022 0249 Micro: 04/10 BC: E vumv-iozy-touckmlfn Urine cx: E coli Urinary antigens: neg [...] Moist; Low Sodium (2 gm); Mildly Thick ([place]) ADULT ORAL NUTRITION SUPPLEMENT; Lunch, Dinner; Frozen [...] CHOL No results found for: PHART, PO2ART, MFR1FLG No results for input(s): INR in the [...] BC, 04/10 - repeat blood culture -04/12- staph epi- 1/2 - likely contaminant. No E [...] MD Rounding Hospitalist Speech Language Pathology Facility/Department: [facility] 2E TELEMETRY Daily Treatment Note NAME: Ubaldo Arango [...] eggs and oatmeal with some encouragement from ELECTRICIAN RADIO and RN. She asked for more coffee. [...] Unable to assess Fluid Accumulation: Mild Generalized Diesel Pile Driver Operator Strength: Not Performed Nutrition Assessment: Pt admitted from residential for evaluation of fever and reports of [...] and moist diet with mildly thickened liquids. ELECTRICIAN RADIO is following and working with pt. Intakes [...] Moist; Low Sodium (2 gm); Mildly Thick ([place]mald) Anthropometric Measures: Height: 5' 2" (157.5 cm) [place] Body Weight (IBW): 110 lbs (50 kg) Current Body Weight: 167 lb (75.8 kg), 151.8 % IBW. Current BMI (kg/m2): 30.5 Usual Body Weight: 185 lb (83.9 kg) % Weight Change (Calculated): -9.7 BMI Categories: Obese Class 1 (BMI 30.0-34.9) Estimated Daily Nutrient Needs: Energy Requirements Based On: Kcal/kg Energy (kcal/day): 7939-5352 Weight Used for Protein Requirements: [place] Protein (g/day): 55-65 Method Used for Fluid [...] Too soon to determine Sherrie He RD, LD Contact: [phone] Images from the original note were not included. Hospitalist Progress Note 04/13/[id number]: Please reach me on [employer] Serve patient care issues. [phone]: Please page IMS night Hospitalist for any issues. Subjective: Admit Date: 04/10/2022 PCP: Wale Cadena MD Room#: 249/2492 Interval History: No fever spikes yesterday Appears more comfortable No acute issues overnt, pt unable to respond to questions. ROS unobtainable from pt d/t cognitive status Smiling/waving ADULT DIET; Dysphagia - Minced and Moist; Low Sodium (2 gm); Mildly Thick ([place]) Patient Vitals for the past 96 hrs [...] 72 hours. CARDIAC ENZYMES: Recent Labs 04/10/22205804/11/22 1208 TROPONINI 0.046* 0.027 Procalcitonin: Lab Results Component Value Date/Time PROCAL 0.76 04/12/2022 03:30 AM COVID-19 PCR: Recent Labs 04/10/222118 COVID19 NEGATIVE: No targets were detected by the [place] Upper Respiratory Pathogens PCR Panel. _ Expected [...] MD Division of Hospitalist Medicine Inpatient Medical Services/[facility] Images from the original note were not included. Palliative Progress Note Chief Complaint: Ubaldo Arango is a 71 y.o. female with chief complaint of fevers with seizure on 04-08. Palliative care is actively following this patient. Assessment/Plan Assessment/Plan Goals of care Pt is not able to make her own decisions. Spoke with [place] [address]ate court who has emailed a copy of guardianship(person only not financial) naming Cleveland Arango [phone]( brother) as 1st and Zachary Arango [phone]( sister in law) as 2nd[address] Will place this in the chart. Pt resides at [facility], plans for her to return when medially stable. Discussed her full code status and what this entails. Also discussed DNRCC and DNRCCA. Guardian asked that I first call facility [facility] to verify if she was a [...] 1 Subjective/Events 71 yr old female from [facility] presented to the ER via EMS for [...] Comments: Unable to assess Psychiatric: Comments: calm [place] Symptom Assessment Score [place] Score Pain Score 0 Tiredness Score 0 [...] Illness: Is patient hospice appropriate? no Facility/Department: [facility] TELEMET[facility] Dysphagia Treatment Note NAME: Ubaldo Arango [...] from small medicine cup. D/W RN and CHAIN LINK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 Palliative Care. [] Goal met [] Progressing [...] at bedside with recommended diet. ALEJANDRO Carcamo M.A.CCC/ELECTRICIAN RADIO Time session ended: 938 Total session minutes: 30 Speech Language Pathology Facility/Department: [facility] 2E TELEMETRY Dysphagia Treatment Note NAME: Ubaldo [...] session, but became compliant with assist from clinical nursing assistant who knew her from her facility. O: [...] note were not included. Hospitalist Progress Note 04/12/2022 [phone]: Please reach me on [employer] patient care issues. [phone]: Please page IMS night Hospitalist for any [...] Moist; Low Sodium (2 gm); Mildly Thick ([place]) Patient Vitals for the past 96 hrs [...] 72 hours. CARDIAC ENZYMES: Recent Labs 04/10/22205804/11/22 1208 TROPONINI 0.046* 0.027 Procalcitonin: Lab Results Component Value Date/Time PROCAL 1.07 12/01/2020 03:54 AM COVID-19 PCR: Recent Labs 04/10/222118 COVID19 NEGATIVE: No targets were detected by the [employer] Upper Respiratory Pathogens PCR Panel. _ Expected [...] Advance Directive: Full Code Discharge planning: TBD Pricila Harsha, 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 TECHNICIAN - CHAIN LINK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 [facility] In[facility] Medical Services/[facility] Nutrition rescreen completed. Patient referred to the [...] located under the "Chart Review" section of [facility]. Click on the "Procedure" tab to locate the complete Speech Pathologist MBSS results and recommendations titled ELECTRICIAN RADIO video swallow on this date. + aspiration with slightly larger cup drink with thin liquids; +cough. Recommended diet: Minced and moist diet with mildly thick liquids --Slow rate-to await swallows between bites --Single cup drinks of mildly thick (administer via small medicine cup to control) ALEJANDRO Carcamo M.A. [facility]-ELECTRICIAN RADIO Speech Language Pathology Facility/Department: [facility] Speech Language Pathology Clinical Bedside Swallow Evaluation [...] department for evaluation of fever. Patient centers residential for fever. [facility] staff said she had a seizure 2 [...] of Evaluation: 04/11/2022 Evaluating Therapist: Raquel Lamar, ELECTRICIAN RADIO Dysphagia Diagnosis Dysphagia Impression : Suspect fucntional [...] Yes Subjective Subjective: Pt is non-verbal, from [facility] Behavior/Cognition: Alert;Requires cueing O2 Device: Nasal cannula [...] solids. Cough x3 during assessment. Recommendations Requires ELECTRICIAN RADIO Intervention: Yes Recommendations: Modified barium swallow study [...] does not appear in pain Therapy Time ELECTRICIAN RADIO Individual Minutes Time In: 1048 Time Out: 1110 Minutes: 22 Signature: Raquel Lamar MA, CCC-ELECTRICIAN RADIO Speech-Language Pathologist Images from the original note were not included. Hospitalist Progress Note 04/11/[id number]: Please reach me on Perfect Serve patient care issues. [phone]: Please page IMS night Hospitalist for any [...] NEGATIVE: No targets were detected by the [place] Upper Respiratory Pathogens PCR Panel. _ Expected [...] CNP Division of Hospitalist Medicine Inpatient Medical Services/[facility] documented in this encounter [facility] Work Phone: [...] Moist; Low Sodium (2 gm); Mildly Thick ([place]) ADULT ORAL NUTRITION SUPPLEMENT; Lunch, Dinner; Frozen [...] tablet Where t (more content not included)... [facility] 04-17-2022 Hospital Discharg e cas Foss RN - 04/17/2022 8:28 AM EDT [...] Transfer Dependent Bathing Dependent Dressing Dependent Toileting {CHP DME ADLs:[id number]} Feeding Assisted Furnace Fitter Assisted Med Delivery crushed and prefers mixed [...] mechanically altered Routes of Feeding: Oral Liquids: [place] Thick Liquids Daily Fluid Restriction: no Last Modified Barium Swallow with Video (Video Swallowing Test): not done Treatments at the Time of Hospital Discharge: Respiratory Treatments: Oxygen Therapy: is not on home oxygen therapy. Ventilator: { CC Vent List:[id number]} Rehab Therapies: {THERAPEUTIC INTERVENTION:[id number]} Weight Bearing Status/Restrictions: No weight bearing restrictions Other Medical Equipment (for information only, NOT a DME order): wheelchair Other Treatments: Patient's personal belongings (please select all that are sent with patient): None RN SIGNATURE: CASE MANAGEMENT/SOCIAL WORK SECTION Inpatient Status Date: Readmission Risk Assessment Score: Readmission Risk Risk of Unplanned Readmission: 13 Discharging to Facility/ Agency Name: [facility] Address: [address] [place] [address] Fax: Dialysis Facility (if applicable) Name: Address: Dialysis Schedule: Phone: Fax: Boiler Room Helper/Shuttle Inspector signature: PHYSICIAN SECTION Prognosis: Good Condition at [...] the diagnosis listed and that she requires [facility] Facility for greater 30 days. Update Admission H&P: No change in H&P PHYSICIAN SIGNATURE: documented in this encounter [facility] Work Phone: 12-03-2020 History of Presen t illness Narrative Pt discharged with transport service, brief report and recent vitals given with no other questions at this time. All pt belongings sent with pt. Report given to [facility] by day shift RN. Pt alert sitting quietly in bed, was able to hang Abx but was not able to get pt to take evening oral medications. Pt turns toward the opposite side of bed when approached with oral medication administration. Will continue to monitor pt progress. Report given to Krys Talavera Waterproof Speech Language Pathology Attempted to see pt for dysphagia therapy. Pt is currently ordered minced and moist, thin liquid diet. Pt consumes liquids via sippy cup. Pt initially smiling when this ELECTRICIAN RADIO said hello. Offered pt her sippy cup [...] if further concerns arise. Felicitas Hussein MA, CCC-ELECTRICIAN RADIO 12/02/2020 Pharmacy Vancomycin Consult Follow-Up Note Current [...] diet- minced and moist, thin liquids per ELECTRICIAN RADIO. 2. Continue Magic Cup BID. Initiate pro-stat [...] hx of anoxic brain injury and dementia. ELECTRICIAN RADIO continues to recommend minced and moist diet w/thin liquids in sippy cup. Pt still w/limited participation in ELECTRICIAN RADIO eval. Pt receiving Mac and cheese w/mashed potatoes everyday. Also receiving magic cup at L/D. Pt receiving pop on multiple trays, unsure if this is a preference for pt, but will trial addition of pro-stat to the pop. Malnutrition Assessment: Malnutrition Status: Insufficient data Context: Acute Illness Estimated Daily Nutrient Needs: Energy (kcal): 3378-4997 kcals(25-30); Weight Used for Energy Requirements: [place](50kg) Protein (g): 50-60(1-1.2); Weight Used for Protein Requirements: [place] Fluid (ml/day): 1500 ml/day or per MD; [...] 187 lb (84.8 kg) Usual Body Weight: [place] Body Weight: 110 lbs; % [place] Body Weight 168.2 % BMI: 33.8 Adjusted [...] ANIONGAP 3 5 LIVER PROFILE: Recent Labs 11/28/20 0426 AST 40 ALT 18 BILITOT 0.4 ALKPHOS [...] Inpatient Medical Services Speech Language Pathology Facility/Department: [facility] TELEMETRY CLINICAL BEDSIDE SWALLOW EVALUATION NAME: Ubaldo [...] time to 1-3 swallows) Treatment Plan Requires ELECTRICIAN RADIO Intervention: Yes Duration/Frequency of Treatment: 3 visits [...] Patient Education: Explain role and introduction to ELECTRICIAN RADIO Patient Education Response: Verbalizes understanding Therapy Time ELECTRICIAN RADIO Individual Minutes Time In: 0750 Time Out: 0800 Minutes: 10 ALEJANDRO Carcamo 11/30/2020 9:46 AM Due to a temporary loss of IV access, the Vancomycin 1250mg doses needed to be retimed from 1400 to (1999 / 0800). The Trough has been rescheduled on 11/30/2020, [...] medications. Appears at baseline. Spoke to case management director and she is a custodial resident and does not need OT to return. D/C OT orders. Jennyfer Diana OT Physical Therapy Facility/Department: [facility] TELEMETRY Initial Assessment NAME: Ubaldo Arango DOB: 1950 Date of Service: 11/29/2020 PT orders received to evaluate and treat. PMH significant for dementia and anoxic brain injury since she was a child. She is non-verbal and gets into a wheelchair with assist. Is not following commands and is refusing morning medications. Appears at baseline. Spoke to case management director and she is a terminal manager resident and does not need PT to [...] echocardiogram, follow up labs, follow up BG, PT/OT/ELECTRICIAN RADIO, encourage PO, see orders. Comprehensive Nutrition Assessment Type and Reason for Visit: Initial, Positive Nutrition Screen Nutrition Recommendations/Plan: 1. Continue with Minced and Moist Diet. ELECTRICIAN RADIO following. 2. Initiate Magic cup BID per [...] any questions. Lunch tray at bedside unconsumed. ELECTRICIAN RADIO is following and also noted inability to [...] assess Fluid Accumulation: No significant fluid accumulation Diesel Pile Driver Operator Strength: Not Performed Estimated Daily Nutrient Needs: Energy (kcal): 1275-3685 kcals(25-30); Weight Used for Energy Requirements: [place](50kg) Protein (g): 50-60(1-1.2); Weight Used for Protein Requirements: [place] Fluid (ml/day): 1500 ml/day or per MD; [...] 187 lb (84.8 kg) Usual Body Weight: [place] Body Weight: 110 lbs; % [place] Body Weight 165.7 % BMI: 33.3 Adjusted [...] Discharge Planning: Too soon to determine Contact: *[id number] Progress Note 11/28/2020 12:57 PM Name: Ubaldo [...] k, follow up labs, follow up BG, PT/OT/ELECTRICIAN RADIO, encourage PO, see orders. Physical Therapy Facility/Department: [facility] TELEMET[facility] Initial Assessment NAME: Ubaldo Arango [...] Phyllis Epperson OT Speech Language Pathology Facility/Department: [facility] TELEMET[facility] Dysphagia Eval Attempt Note NAME: Ubaldo [...] assess. Time Session Ended: 905 Raquel Lamar M.A.CCC/ELECTRICIAN RADIO Speech-Language Pathologist An K95 mask and gloves were worn throughout this session. Patient is nonverbal but will produce high pitched screams when she seems to be uncomfortable with the nursing interventions. This RN was unable to give the patient her oral medications, put the monitor tech on, nor the oxygen tubing for supplemental O2. Patient's current pulse oximetry reading is 92% room air. The patient allowed me to give her IV medications. [facility] hospitalist is aware. Dr. Madera aware patient is refusing medications. Perfect serve to Dr. Madera: Patient is refusing to take medications. Called residential for tips and they said she has a hard time with different people in her environment. Spoke with guardian Zachary Zarate, she said patient is non verbal but able to understand some things. She gets in a wheelchair at the residential and wheel around. If she gets frightened [...] encounter [facility] Work Phone: 12-02-2020 Hospital Discharg e instructions Dylan Foss RN - 12/02/2020 5:28 PM EDT As [...] at most local grocery stores, pharmacies, and chain [employer]-stores. If you have any questions about your [...] Agent's Name Healthcare Agent's Phone Number 11/27/20 [phone] Yes, patient has an advance directive for healthcare treatment Other (Comment) she has a guardian in place No, copy requested from family Legal Guardian Haritha Arango [phone] Admitting Physician: Naz Madera MD PCP: No [...] Dependent Dressing Dependent Toileting Dependent Feeding Assisted Furnace Fitter Assisted Med Delivery crushed Wound Care Documentation [...] Readmission: 11 Discharging to Facility/ Agency Name: [facility] Address: [address] [place] [address] Dialysis Facility (if applicable) Name: Address: Dialysis Schedule: Phone: Fax: Boiler Room Helper/Shuttle Inspector signature: PHYSICIAN SECTION Prognosis: Good Condition at Discharge: Stable Rehab Potential (if transferring to Rehab): Good Recommended Labs or Other Treatments After Discharge: CMP, CBC wkly while on IV ATB See OPAT form Physician Certification: I certify the above information and transfer of Ubaldo Arango is necessary for the continuing treatment of the diagnosis listed and that she requires [facility] Facility for greater 30 days. Update Admission H&P: No change in H&P PHYSICIAN SIGNATURE: documented in this encounter [facility] Work Phone: Evaluation note Diagnosis Urinary tract infection with hematuria, site unspecified- Primary Chronic pain syndrome documented in this encounter [facility] Work Phone: Evaluation noteNo assessment information available [facility] Work Phone: Evaluation note* Diagnosis Septicemia (HCC)- Primary Unspecified septicemia Hypoxia Hypoxemia Acute cystitis without hematuria Acute cystitis Pneumonia of right middle lobe due to infectious organism Severe sepsis (HCC) documented in this encounter [facility] Work Phone: Evaluation note* Diagnosis Acute cough- Primary Viral upper respiratory tract infection Acute upper respiratory infections of unspecified site [facility]* Attachments The following attachments cannot be sent through Care Everywhere. * Viral Upper Respiratory Infection Discharge Instructions, Adult (Maldivian) * Cough Discharge Instructions, Adult (Maldivian) [facility]No reason for referral [facility] Work Phone: Advance Directives No Advanced Directives Records FoundLatest Code Status on File Code Status Date Activated Date Inactivated Comments DNR-CCA 11/27/2020 11:49 AM Full Code 11/27/2020 11:32 AM 11/27/2020 11:49 AM Documents on File Type Date Recorded Patient Cloth Wire Weaver Expl anation ACP-Do Not Resuscitate 12/05/2020 12:47 [...] Documents on File Type Date Recorded Patient Cloth Wire Weaver Expl anation DNR (Do Not Resuscitate) 04/19/2022 DNR (Do Not Resuscitate) 11/27/2020 Chief Complaint and Reason for Visit Chief Complaint GROUP HOME LAB WOR K GROUP HOME LAB WORK GROUP HOME LABWORK GROUP HOME LABWORK GROUP HOME LAB WORK GROUP HOME LABWORK GROUP HOME LAB WORK Chief Complaint GROUP HOME LABWORK GROUP HOME LABWORK GROUP HOME LAB WORK GROUP HOME LABWORK GROUP HOME LAB WORK GROUP HOME LABWORK Chief Complaint GROUP HOME LABWORK GROUP HOME LAB WORK GROUP HOME LABWORK GROUP HOME LAB WORK GROUP HOME LABWORK Chief Complaint GROUP HOME LAB WOR K GROUP HOME LABWORK GROUP HOME LABWORK LABWORK Chief Complaint GROUP HOME LABWORK GROUP HOME LABWORK LABWORK GROUP HOME LAB WORK Chief Complaint GROUP HOME LABWORK LABWORK GROUP HOME LAB WORK GROUP HOME LAB WORK LABWORK Chief Complaint LABWORK GROUP HOME LAB WORK GROUP HOME LAB WORK LABWORK GROUP HOME LAB WORK Chief Complaint LABWORK GROUP HOME LAB WORK GROUP HOME LAB WORK LABWORK GROUP HOME LABWORK GROUP HOME LAB WORK Chief Complaint GROUP HOME LAB WOR K LABWORK GROUP HOME LABWORK GROUP HOME LAB WORK LABWORK GROUP HOME LAB WORK Chief Complaint GROUP HOME LAB WOR K LABWORK GROUP HOME LAB WORK GROUP HOME LAB WORK Chief Complaint GROUP HOME LAB WOR K LABWORK GROUP HOME LAB WORK GROUP HOME LAB WORK GROUP HOME LABWORK Chief Complaint GROUP HOME LAB WOR K GROUP HOME LABWORK GROUP HOME LABWORK Chief Complaint GROUP HOME LAB WOR K GROUP HOME LABWORK GROUP HOME LABWORK LABWORK Chief Complaint GROUP HOME LAB WOR K GROUP HOME LABWORK GROUP HOME LABWORK LABWORK GROUP HOME LAB WORK Chief Complaint GROUP HOME LAB WOR K GROUP HOME LABWORK GROUP HOME LABWORK LABWORK GROUP HOME LAB WORK GROUP HOME LABWORK Chief Complaint GROUP HOME LABWORK LABWORK GROUP HOME LAB WORK GROUP HOME LABWORK GROUP HOME LABWORK Chief Complaint GROUP HOME LABWORK GROUP HOME LAB WORK LABWORK Chief Complaint GROUP HOME LAB WOR K LABWORK GROUP HOME LAB WORK LABWORK Chief Complaint GROUP HOME LAB WOR K LABWORK GROUP HOME LAB WORK LABWORK LABWORK Chief Complaint GROUP HOME LAB WOR K LABWORK LABWORK GROUP HOME LABWORK LABWORK Chief Complaint GROUP HOME LAB WOR K LABWORK LABWORK GROUP HOME LABWORK GROUP HOME LABWORK LABWORK Chief Complaint GROUP HOME LABWORK LABWORK LABWORK GROUP HOME LABWORK LABWORK Chief Complaint LABWORK GROUP HOME LABWORK LABWORK LABWORK Chief Complaint LABWORK GROUP HOME LABWORK LABWORK LABWORK LABWORK Chief Complaint LABWORK GROUP HOME LABWORK LABWORK LABWORK LABWORK GROUP HOME LAB WORK Chief Complaint Admit Date LABWORK November 30, 2024 5:0 0am Chief Complaint Admit Date GROUP HOME LAB WORK November 23, 2024 9 :18am LABWORK November 30, 2024 5:0 0am Chief Complaint Admit Date GROUP HOME LAB WORK November 23, 2024 9 :18am [...] Reason Onset Date Comments Medication Problem 11/28/2024 Reason Onset Date Comments Med Refill 02/17/2025 Ordered Prescriptions (unrec ognized section and content) [...] IntraVENous, EVERY 8 HOURS, First dose on 04/14/22 at 1300, Until Discontinued, Antimicrobial Indications: Bloodstream [...] per day), 8 doses, First dose on 04/16/22 at 2100, Last dose on 04/20/22 at 0900, Antimicrobial Indications: Urinary Tract Infection, UTI duration of therapy: Other, Other Urinary Tract Infection Duration: Another 4 days through 04/20/22 2213 (Given - Provider: Inés Batista RN) 1014 (Given - Provider: Dylan Foss RN)211 (Given - Provider: Inés Batista, YAMILA) 101 (Given - Provider: Dylan Foss RN)2100 [...] Foss RN)1302 (Given - Provider: Dylan Foss RN)211 (Given - Provider: Inés Batista RN) 1016 (Given - Provider: Dylan Foss RN)1613 [...] Discontinued 0840 (Given - Provider: Rosita Borrego RN)2213 (Given - Provider: Inés Batista RN) 1016 (Given - Provider: Dylan Foss RN)211 (Given - Provider: Inés Batista RN) 1017 (Given - Provider: Dylan Foss RN)2100 (Due) [...] Discontinued 0840 (Given - Provider: Rosita Borrego RN)2213 (Given - Provider: Inés Batista RN) 101 [...] RN)2213 (Given - Provider: Inés Batista RN) 101 (Given - Provider: Dylan Foss RN)2117 (Given - Provider: Inés Batista RN) 1015 [...] 8 HOURS PRN, Starting on Sat04/11/22 at 005, Until Discontinued, Nausea, Vomiting Or ondansetron (ZOFRAN) injection 4 mgJump to med 4 mg, IntraVENous, EVERY 6 HOURS PRN, Starting on Sat04/11/22 at 005, Until Discontinued, Nausea, Vomiting
Administer if oral route cannot be used.
Care Teams (unrecognized sec tion and content) Team Status: Inactive Member Role Status Dates Wael WHEATLEY Attending Provider Active Team Status: Active Member Role Status Dates Wale WHEATLEY Attending Provider Active Manager Film Relationship Specialty Start Date End Date Wale Cadena MD [address] [place] [address] PCP - General Internal Medicine 04/12/22 Team Status: Inactive Member Role Status Dates Wale Cadena Attending Provider, Referring Provider Active Team Status: Inactive Member Role Status Dates Wale Cadena Attending Provider Active Team Status: Active Member Role Status Dates Wale Cadena Attending Provider Active Team Status: Inactive Member Role Status Dates Wale WHEATLEY Attending Provider, Referring Provi bora Active Manager Film Relationship Specialty Start Date End Date Wale Cadena [address] [place] [address] PCP - General 04/12/22 Manager Film Relationship Specialty Start Date End Date Wale Cadena [address] [place] [address] PCP - General 04/12/22 Manager Film Relationship Specialty Start Date End Date Wale Cadena [address] [place] [address] PCP - General 04/12/22 Team Status: Active [...] December 18, 2024 End: December 18, 2024 Manager Film Relationship Specialty Start Date End Date Wale Cadena [address] [place] [address] PCP - General 04/12/22 INFORMATION SOURCE (unrecogn ized section and content) DATE CREATED AUTHOR 05/02/2022 [facility] DATE CREATED AUTHOR AUTHOR'S ORGANIZ ATION 02/21/2025 [facility] DATE CREATED AUTHOR AUTHOR'S ORGANIZ ATION 03/10/2025 [facility] FOR RECORDS PERTAINING TO PATIENTS WHO [...] BE BASED ON THE PRIMARY CLINICAL RECORDS. [facility] [employer] [facility]. provides no warranty or guarantee of the accuracy or completeness of information in this document.
[2025-06-01 09:37] LABS: Valproic Acid (Depakene) Level 45 ug/mL (50-100)
== END ==
LOC: OLS.ACW300 05:00
PROVIDERS: Visit Provider Internal Medicine
DX: R56.9 Unspecified convulsions (principal); R26.81 Unsteadiness on feet; F72 Severe intellectual disabilities
CPT/HCPCS: 36415; 80164

== ENCOUNTER → 2025-06-23 05:00 | Outpatient (REF) | payer MEDICARE, MEDICAID, SELFPAY ==
--- OUTSIDE RECORDS SUMMARY | 2025-06-23 04:11 | XMS RPT_ITS | CCD ---
Author Organization [facility] Care Team Providers Care Assisted Living Nursing Director Name Role Phone Unavailable Primary Care Provider Wale Wheat MD Primary Care Provider [phone] Wale Cadena Referring Unavailable MOSHE CASTANEDA Attending Unavailable Wale Cadena Primary Care Unavailable Wale Cadena Primary Care Provider Wale Maier Attending Provider Unavailab Wale Pastor Referring Provider UnavailWALE Guaman Primary Care Unavailable NILO KENNEDY Attending Unavailable Tammi WHEATLEY, Wale Attending Unavailable Wale Maier Referring Unavailable Tammi WHEATLEY, Wale Attending Unavailable Tammi WHEATLEY, Wale Referring Unavailable Katsaedison WHEATLEY, Wale Attending Unavailable Tammi WHEATLEY, Wale Attending Unavailable Tammi WHEATLEY, Wale Attending Unavailable Tammi WHEATLEY, Wale Referring Unavailable Tammi OLS, Wale Attending Unavailable Bro DIONI, Arden Attending Unavailable Katsaros OLS, Wale Attending Unavailable Katsaros DIONI, Wale Attending Unavailable Medications Current Medications Medication [...] (DEFINITY) injection 1.65 mg polyethylene glycol [id number] [id number] mg powder for oral solution (2 sources) [...] [Peripheral vascular disease, unspecified] Onset: 04-11-2022 Chronic Pneumonia (except that caused by tuberculosis or sexually transmitted disease) (3 sources) Infective pneumonia; Translations: [Pneumonia, unspecified organism] Onset: 04-11-2022 Episodic Schizophrenia and other psychotic disorders (2 sources) Schizoaffective disorder, unspecified; Translations: [Schizoaffective disorder, unspecified] Onset: 04-11-2022 Chronic Screening and history of mental health and substance abuse codes (2 sources) Personal history of nicotine dependence; Translations: [Personal history of nicotine dependence] Onset: 04-11-2022 Episodic Septicemia (except in labor) (15 sources) Infectious agent in bloodstream; Translations: [Sepsis, unspecified organism] Onset: 04-10-2022 Episodic Thyroid disorders (3 sources) Hypothyroidism, unspecified; Translations: [Hypothyroidism, unspecified] Onset: 04-11-2022 Chronic Unclassified (1 source) Contact with and (suspected) exposure to COVID-19; Translations: [Contact with and (suspected) exposure to COVID-19] Onset: 04-11-2022 Unclassified (1 source) Acute cough; Translations: [Acute cough] Onset: 10-21-2024 Past or Other Problems Problem Classification Problem Date Documented Da te Episodic/Chronic Other aftercare (1 source) Other jail (current) drug therapy; Translations: [Other jail (current) drug therapy] Onset: 08-07-2024 Episodic Other upper respiratory infections (4 sources) [...] 36on 02-17-2025 36 S: Yennifer DRISCOLL from [facility] spoke with [facility] nurse regarding medication refill. B: Onset of symptoms/concern 02/17/2025. A: Yennifer DRISCOLL from [facility] requesting a medication refill for Hydrocodone 5-325 [...] medicines) Protocols used: Medication Refill and Renewal [facility] TSH DL <= 0.005 mIU/L QnOrde red By: Wale Cadena on 12-18-2024 TSH Qn 3.040 uIU/mL 0.300-4.200 [facility] Serum or plasma valproate me asurement (mass/volume)Ordered By: Wale Cadena on 11-30-2024 Valproate [Mass/Vol] 35 ug/mL Low 50-100 [facility] Comment on above: Valproic Acid concen trations >100 ug/mL are potentially toxic. 36on 11-28-2024 36 S: The MEDICAL CONSULTANT is 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 R: Page to Dr. Cadena and he will call the MEDICAL CONSULTANT now. Reason for Disposition Caller has URGENT medicine question about med that PCP or specialist prescribed and triager unable to answer question Protocols used: Medication Question [id number] [facility] 36on 11-27-2024 36 S: Shyanne with [facility] [place] spoke with [facility] nurse regarding medication interaction B: Onset of symptoms/concern n/a A: Patient prescribed IV imipenem, supposed to start tonight. Pharmacy called [facility] and stated that there is an interaction with this medication with Depakote. May increase the likeliness of seizures. R: Paged Dr Cadena with above message from facility and Shyanne with [facility] [place] #[phone]. Dr Cadena called [facility]. No further orders at this time. Reason for Disposition [1] Caller has URGENT medicine question about med that PCP or specialist prescribed AND [2] triager unable to answer question Protocols used: Medication Question [facility] Bilirubin Test strip Ql (U)O rdered By: Wale Cadena on 11-23-2024 Bilirubin Ql (U) Negative Negative [facility] Ketones Test strip Ql (U)Ord ered By: Wale Cadena on 11-23-2024 Ketones Ql (U) Negative Negative [facility] Nitrite Test strip Ql (U)Ord ered By: Wale Cadena on 11-23-2024 Nitrite Ql (U) Negative Negative [facility] Protein Test strip Ql (U)Ord ered By: Wale Cadena on 11-23-2024 Protein Ql (U) Negative Negative [facility] Urine clarityOrdered By: Meggan Cadena on 11-23-2024 Clarity (U) Clear Clear [facility] Urine color determinationOrd ered By: Wale Cadena on 11-23-2024 Color (U) Yellow Yellow [facility] Urine cultureOrdered By: Meggan Cadena on 11-23-2024 Bacteria identified Cx Nom (U) ESBL Escherichia coli Abnormal [facility] Urine glucose detectionOrder ed By: Wale Cadena on 11-23-2024 Glucose Ql (U) Normal mg/dl Normal [facility] Urine leukocyte esterase det ection by dipstickOrdered By: Wale Cadena on 11-23-2024 Leukocyte esterase Test strip Ql (U) 500 /ul High Negative [facility] Urine pHOrdered By: Wale ulloa on 11-23-2024 pH (U) 7.0 [pH] 5.0 - 8.0 [facility] Urine specific gravity measu rementOrdered By: Wale Cadena on 11-23-2024 Specific gravity (U) [Rel density] 1.010 1.002-1.030 [facility] Urine urobilinogen measureme ntOrdered By: Wale Cadena on 11-23-2024 Urobilinogen Ql (U) Normal mg/dl Normal [facility] BASIC METABOLIC PANELon 10-03 Anion gap [Moles/Vol] 7 mmol/L Normal 3-13 [facility] Comment on above: Performed By: #### L [id number], [id number] #### Commercial Artist Lettering: RAQUEL SILVERIO ([phone]) [facility] YOSELYN CinnamonTMAN (SWRLAB) [address] [place] [address] Calcium [Mass/Vol] 9.2 mg/dL Normal 8.8-10.0 [facility] Comment on above: Performed By: #### L [id number], [id number] #### Commercial Artist Lettering: RAQUEL SILVERIO ([phone]) [facility] YOSELYN RITTMAN (SWRLAB) [address] [place] [address] [place] Chloride [Moles/Vol] 101 mmol/L Normal 98-107 [facility] Comment on above: Performed By: #### L [id number], [id number] #### Commercial Artist Lettering: RAQUEL SILVERIO ([phone]) [facility] RITTMAN (SWRLAB) [address] [place] [address] [place] CO2 [Moles/Vol] 27 mmol/L Normal 23-31 [facility] Comment on above: Performed By: #### L [id number], [id number] #### Commercial Artist Lettering: RAQUEL SILVERIO ([phone]) [facility] TOPETE RITTMAN (SWRLAB) [address] [place] [address] Creatinine [Mass/Vol] 0.82 mg/dL Normal 0.57-1.11 [facility] Comment on above: Performed By: #### L [id number], [id number] #### Commercial Artist Lettering: RAQUEL SILVERIO ([phone]) [facility] JEREZTMAN (SWRLAB) [address] [place] [address] GLOMERULAR FILTRATION RATE ML/MIN/1.73 SQ M.PREDICTED 74.7 mL/min/1.73m*2 Normal >60.0 [facility] Comment on above: Result Comment: Calc ulation based on the Chronic Kidney Disease Epidemiology Collaboration (CKD-EPI) equation refit without adjustment for race Performed By: #### L [id number], [id number] #### Commercial Artist Lettering: RAQUEL SILVERIO ([phone]) [facility] JEREZTMAN (SWRLAB) [address] [place] [address] [place] Glucose [Mass/Vol] 96 mg/dL Normal 82-115 [facility] Comment on above: Performed By: #### L [id number], [id number] #### Commercial Artist Lettering: RAQUEL SILVERIO ([phone]) [facility] TOPETE RITTMAN (SWRLAB) [address] [place] [address] [place] Potassium [Moles/Vol] 4.8 mmol/L Normal 3.5-5.1 [facility] Comment on above: Result Comment: [facility] potassium values may be up to 0.5 mmol/L lower than serum values. Performed By: #### L [id number], [id number] #### Commercial Artist Lettering: RAQUEL SILVERIO ([phone]) [facility] TOPETE RITTMAN (SWRLAB) [address] [place] [address] [place] Sodium [Moles/Vol] 135 mmol/L Low 136-145 [facility] Comment on above: Performed By: #### L [id number], [id number] #### Commercial Artist Lettering: RAQUEL SILVERIO ([phone]) [facility] RITTMAN (SWRLAB) [address] Urea nitrogen [Mass/Vol] 31 mg/dL High 9-23 [facility] Comment on above: Performed By: #### L [id number], [id number] #### Commercial Artist Lettering: RAQUEL SILVERIO ([phone]) [facility] RIT[place] (SWRLAB) [address] Basic metabolic 1998 panelon 10-21-2024 Anion gap [Moles/Vol] 7 mmol/L 3 - 13 mmol/L [facility] Calcium [Mass/Vol] 9.2 mg/dL 8.8 - 10. 0 mg/dL [facility] Chloride [Moles/Vol] 101 mmol/L 98 - 10 7 mmol/L [facility] CO2 [Moles/Vol] 27 mmol/L 23 - 31 mmol/L [facility] Creatinine [Mass/Vol] 0.82 mg/dL 0.57 - 1.11 mg/dL [facility] GFR/1.73 sq M.predicted (S/P/Bld) [Vol rate/Area] 74.7 mL/min - PINF [facility] Comment on above: Calculation based on the Chronic Kidney Disease Epidemiology Collaboration (CKD-EPI) equation refit without adjustment for race Glucose [Mass/Vol] 96 mg/dL 82 - 115 mg/dL [facility] Interpretation and review of laboratory results Abnormal [facility] Potassium [Moles/Vol] 4.8 mmol/L 3.5 - 5.1 mmol/L [facility] Comment on above: Plasma potassium onidna ues may be up to 0.5 mmol/L lower than serum values. Sodium [Moles/Vol] 135 mmol/L Low 136 - 145 mmol/L [facility] Urea nitrogen [Mass/Vol] 31 mg/dL High 9 - 23 mg/d L [facility] CBC W Auto Differential pane l (Bld)Ordered By: Davis Berg on 10-21-2024 Basophils (Bld) [#/Vol] 0.1 10*3/uL 0.0 - 0.2 10*3/uL [facility] Basophils/100 WBC (Bld) 0.9 % 0.0 - 2.0 % [facility] Eosinophils (Bld) [#/Vol] 0.4 10*3/uL 0.0 - 0.5 10*3/uL [facility] Eosinophils/100 WBC (Bld) 4 % 0.0 - 6.0 % [facility] Erythrocyte distribution width (RBC) [Ratio] 18.2 % High 11.5 - 15.0 % [facility] Hematocrit (Bld) [Volume fraction] 34.8 % Low 35.0 - 47.0 % [facility] Hemoglobin (Bld) [Mass/Vol] 11 g/dL Low 11.7 - 16.0 g/dL [facility] Immature granulocytes (Bld) [#/Vol] 0 10*3/uL NINF - 0.1 10*3/uL [facility] Immature granulocytes/100 WBC (Bld) 0.3 % 0.0 - 2.0 % [facility] Interpretation and review of laboratory results Abnormal [facility] Lymphocytes (Bld) [#/Vol] 2.8 10*3/uL 1.0 - 4.3 10*3/uL [facility] Lymphocytes/100 WBC (Bld) 32.1 % 15.0 - 45.0 % [facility] MCH (RBC) [Entitic mass] 24.9 pg Low 26. 0 - 34.0 pg [facility] MCHC (RBC) [Mass/Vol] 31.6 % 30.5 - 36.0 % [facility] MCV (RBC) [Entitic vol] 78.9 fL 77.0 - 99.0 fL [facility] Monocytes (Bld) [#/Vol] 1.1 10*3/uL High 0.0 - 0.9 10*3/uL [facility] Monocytes/100 WBC (Bld) 12.4 % 5.0 - 13.0 % [facility] Neutrophils (Bld) [#/Vol] 4.4 10*3/uL 1.8 - 7.5 10*3/uL [facility] Neutrophils/100 WBC (Bld) 50.3 % 38.0 - 82.0 % [facility] Nucleated RBC/100 WBC (Bld) [Ratio] 0 % [facility] Platelet mean volume (Bld) [Entitic vol] 9.4 fL 9.0 - 12.7 fL [facility] Comment on above: MPV is a calculated measurement using platelet volume ratio Platelets (Bld) [#/Vol] 321 10*3/uL 140 - 440 10*3/uL [facility] RBC (Bld) [#/Vol] 4.41 10*6/uL 3.80 - 5.2 0 10*6/uL [facility] WBC (Bld) [#/Vol] 8.8 10*3/uL 3.6 - 10.7 10*3/uL [facility] CBC WITH AUTO DIFFERENTIALon 10-21-2024 Basophils (Bld) [#/Vol] 0.1 10*3/uL Normal 0.0-0.2 [facility] Comment on above: Performed By: #### L [id number] #### Commercial Artist Lettering: RAQUEL SILVERIO ([phone]) [facility] OYSELYN RITTMAN (SWRLAB) [address] [place] [address] [place] Basophils/100 WBC (Bld) 0.9 % Normal 0.0-2.[address] [facility] Comment on above: Performed By: #### L [id number] #### Commercial Artist Lettering: RAQUEL SILVERIO ([phone]) [facility] YOSELYN RITTMAN (SWRLAB) [address] [place] [address] [place] Eosinophils (Bld) [#/Vol] 0.4 10*3/uL Normal 0.0-0.5 [facility] Comment on above: Performed By: #### L [id number] #### Commercial Artist Lettering: RAQUEL SILVERIO ([phone]) [facility] YOSELYN RITTMAN (SWRLAB) [address] [place] [address] [place] Eosinophils/100 WBC (Bld) 4.0 % Normal 0.0-6.0 [facility] Comment on above: Performed By: #### L [id number] #### Commercial Artist Lettering: RAQUEL SILVERIO ([phone]) [facility] YOSELYN RITTMAN (SWRLAB) [address] [place] [address] Erythrocyte distribution width (RBC) [Ratio] 18.2 % High 11.5-15.0 [facility] Comment on above: Performed By: #### L [id number] #### Commercial Artist Lettering: RAQUEL SILVERIO ([phone]) [facility] TOPETE RITTMAN (SWRLAB) [address] [place] [address] Hematocrit (Bld) [Volume fraction] 34.8 % Low 35.0-47.0 [facility] Comment on above: Performed By: #### L [id number] #### Commercial Artist Lettering: RAQUEL SILVERIO ([phone]) [facility] TOPETE RITTMAN (SWRLAB) [address] [place] [address] Hemoglobin (Bld) [Mass/Vol] 11.0 g/dL Low 11.7-16.0 [facility] Comment on above: Performed By: #### L [id number] #### Commercial Artist Lettering: RAQUEL SILVERIO ([phone]) [facility] TOPETE RITTMAN (SWRLAB) [address] [place] [address] IMMATURE GRANS % 0.3 % Normal 0.0-2.0 [facility] Comment on above: Performed By: #### L [id number] #### Commercial Artist Lettering: RAQUEL SILVERIO ([phone]) [facility] TOPETE RITTMAN (SWRLAB) [address] [place] [address] IMMATURE GRANS ABSOLUTE 0.0 10*3/uL Normal <0.1 [facility] Comment on above: Performed By: #### L [id number] #### Commercial Artist Lettering: RAQUEL SILVERIO ([phone]) [facility] TOPETE RITTMAN (SWRLAB) [address] [place] [address] [place] Lymphocytes (Bld) [#/Vol] 2.8 10*3/uL Normal 1.0-4.3 [facility] Comment on above: Performed By: #### L [id number] #### Commercial Artist Lettering: RAQUEL SILVERIO ([phone]) NANNETTE TOPETE RITTMAN (SWRLAB) [address] [place] [address] [place] Lymphocytes/100 WBC (Bld) 32.1 % Normal 15.0-45.0 [facility] Comment on above: Performed By: #### L [id number] #### Commercial Artist Lettering: RAQUEL SILVERIO ([id number]) [facility] TOPETE RITTMAN (SWRLAB) [address] [place] [address] MCH (RBC) [Entitic mass] 24.9 pg Low 26.0-34.0 [facility] Comment on above: Performed By: #### L [id number] #### Commercial Artist Lettering: RAQUEL SILVERIO ([phone]) [facility] TOPETE RITTMAN (SWRLAB) [address] [place] [address] MCHC 31.6 % Normal 30.5-36.0 [facility] Comment on above: Performed By: #### L [id number] #### Commercial Artist Lettering: RAQUEL SILVERIO ([phone]) [facility] TOPETE RITTMAN (SWRLAB) [address] [place] [address] [place] MCV (RBC) [Entitic vol] 78.9 fL Normal 77.0-99.[address] [facility] Comment on above: Performed By: #### L [id number] #### Commercial Artist Lettering: RAQUEL SILVERIO ([phone]) [facility] TOPETE RITTMAN (SWRLAB) [address] [place] [address] [place] Monocytes (Bld) [#/Vol] 1.1 10*3/uL High 0.0-0.9 [facility] Comment on above: Performed By: #### L [id number] #### Commercial Artist Lettering: RAQUEL SILVERIO ([phone]) [facility] TOPETE RITTMAN (SWRLAB) [address] [place] [address] [place] Monocytes/100 WBC (Bld) 12.4 % Normal 5.0-13.[address] [facility] Comment on above: Performed By: #### L [id number] #### Commercial Artist Lettering: RAQUEL SILVERIO ([phone]) [facility] TOPETE RITTMAN (SWRLAB) [address] [place] [address] [place] NEUTROPHILS ABSOLUTE 4.4 10*3/uL Normal 1.8-7.5 [facility] Comment on above: Performed By: #### L [id number] #### Commercial Artist Lettering: RAQUEL SILVERIO ([phone]) [facility] TOPETE RITTMAN (SWRLAB) [address] [place] [address] Neutrophils/100 WBC (Bld) 50.3 % Normal 38.0-82.0 [facility] Comment on above: Performed By: #### L [id number] #### Commercial Artist Lettering: RAQUEL SILVERIO ([id number]) [facility] TOPETE RITTMAN (SWRLAB) [address] [place] [address] NRBC 0.0 /100 WBCs Normal 0.0-2.0 [facility] Comment on above: Performed By: #### L [id number] #### Commercial Artist Lettering: RAQUEL SILVERIO ([phone]) [facility] TOPETE RITTMAN (SWRLAB) [address] [place] [address] Platelet mean volume (Bld) [Entitic vol] 9.4 fL Normal 9.0-12.7 [facility] Comment on above: Result Comment: MPV is a calculated measurement using platelet volume ratio Performed By: #### L [id number] #### Commercial Artist Lettering: RAQUEL SILVERIO ([phone]) [facility] TOPETE RITTMAN (SWRLAB) [address] [place] [address] [place] Platelets (Bld) [#/Vol] 321 10*3/uL Normal 140-440 [facility] Comment on above: Performed By: #### L [id number] #### Commercial Artist Lettering: RAQUEL SILVERIO ([phone]) [facility] TOPETE RITTMAN (SWRLAB) [address] [place] [address] [place] RBC (Bld) [#/Vol] 4.41 10*6/uL Normal 3.80-5.20 [facility] Comment on above: Performed By: #### L [id number] #### Commercial Artist Lettering: RAQUEL SILVERIO ([phone]) [facility] (SWRLAB) [address] [place] [address] WBC (Bld) [#/Vol] 8.8 10*3/uL Normal 3.6-10.7 [facility] Comment on above: Performed By: #### L [id number] #### Commercial Artist Lettering: RAQUEL SILVERIO ([phone]) [facility] RITTMAN (SWRLAB) [address] COVID-19, Flu A/B, and RSV C omboon 10-21-2024 Interpretation and review of laboratory results Normal [facility] ED Nursing Noteon 10-21-2024 ED Nursing Note Gave report and discharge instructions to Álvaro bo. Pt leaves ED in ambulance. Normal [facility] ED Nursing Note Called report to Lilia at [facility]. Normal [facility] ED Provider Noteon ED Provider Note [...] She is sent to us from her group home because of increased cough, sneezing, congestion. Patient [...] Platelets 321 (more content not included)... Normal [facility] Laboratory - Chemistry and C hemistry - challengeon 10-21-2024 Magnesium [Mass/Vol] 2.1 mg/dL 1.6 - 2 .6 mg/dL [facility] Laboratory - Microbiology an d Antimicrobial susceptibilityon 10-21-2024 FLUAV RNA VICKI+probe Ql (Resp) Not detected Not Detected [facility] FLUBV RNA VICKI+probe Ql (Resp) Not detected Not Detected [facility] RSV RNA VICKI+probe Ql (Resp) Not detected Not Detected [facility] SARS-CoV-2 (COVID-19) RNA VICKI+probe Ql (Resp) Not detected Not Detected [facility] SARS-CoV-2 (COVID-19) RNA VICKI+probe Ql (Unsp spec) Methodology: real-time, RT-PCR The SARS-CoV-2, Flu A/B, and RSV Combo assay is intended for in vitro diagnostic use under the FDA Emergency Use Authorization (EUA). This test has not been FDA cleared or approved. In compliance with this authorization, please visit www.iTag[place].gov/media/ 53826/download or www.i[place].gov/media/ 90334/download to access the applicable information sheets. [facility] MAGNESIUMon 10-21-2024 Magnesium [Mass/Vol] 2.1 mg/dL Normal 1.6-2.6 [facility] Comment on above: Result Comment: JOHN Constantino COMMENTS: Higher values can be expected in females during menses. Performed By: #### L [id number], [id number] #### Commercial Artist Lettering: RAQUEL SILVERIO ([phone]) [facility] (SWRLAB) [address] [place] [address] Magnesium [Mass/Vol]on 10-21 Interpretation and review of laboratory results Normal [facility] Higher values can be expected in females during menses. [facility] No Panel Informationon 10-21 [facility] SARS-COV-2, FLU A/B, AND RSV COMBOon [...] In compliance with this authorization, please visit www.i[place].gov/media/ 94641/download or www.i[place].gov/media/ 94445/download to access the applicable information sheets. Normal [facility] Comment on above: Performed By: #### L [id number] ####Commercial Artist Lettering: RAQUEL SILVERIO ([phone])[facility] ([facility])[address] [place] [address] XR Chest Single viewon 10-21 No evidence of an acute cardiopulmonary abnormality. Report Dictated on Electronically Signed By: Arden Roblero MD Electronically Signed Date/Time: 10/21/2024 2:42 PM EDT [facility] Patient Name: UBALDO ARANGO : 1950 [...] midlung is most likely chronic. Bones: Unremarkable [facility] Arden Roblero MD - 10/21/2024 Patient [...] Electronically Signed Date/Time: 10/21/2024 2:42 PM EDT [facility] Radiology Study observation (narrative) [facility] XR Chest Single viewOrdered By: Arden Roblero on 10-21-2024 [facility] Work Phone: 36on 07-11-2024 36 S: Barb, Nurse at [facility] [phone] spoke with [facility] nurse regarding medication problem B: Onset of symptoms/concern 07/11/24 A: [facility] patient needs refill of Hydrocodone 5/325 mg one by mouth daily. [facility] pharmacy is [facility] ([facility] R: Advised Barb that medication is a narcotic and will have to wait until office is open. Barb understands care advice. No further needs at this time. Barb instructed to call back with new or worsening symptoms. Reason for Disposition Caller requesting a CONTROLLED substance prescription refill (e.g., narcotics, ADHD medicines) Protocols used: Medication Refill and Renewal [id number] Normal [facility] Basophil percentageOrdered B y: Wale Cadena on 10-24-2023 Bilirubin [Mass/Vol] 0.20 mg/dL 0.20-1.00 [facility] Comment on above: For patients on eltr ombopag therapy, use of Dimension Norco TBIL is not recommended. Chloride [Moles/Vol] 107 mmol/L 98-107 [facility] Cholesterol [Mass/Vol] 195 mg/dL <200 [facility] Comment on above: <200 mg/dL Desirable 200-240 mg/dL Borderline >240 mg/dL High Risk Glucose [Mass/Vol] 84 mg/dL 74-106 [facility] Hemoglobin (Bld) [Mass/Vol] 11.9 g/dL 12.0-15.0 [facility] Potassium [Moles/Vol] 4.5 mmol/L 3.5-5.[address] [facility] Protein [Mass/Vol] 7.3 g/dL 6.4-8.2 [facility] Sodium [Moles/Vol] 138 mmol/L 136-145 [facility] Triglyceride [Mass/Vol] 247 mg/dL <199 [facility] Comment on above: The drugs N-Acetylcy steine and Metamizole may falsely depress this assay.Serum Triglycerides Reference Interval Normal <150 mg/dL Borderline high 150 - 199 mg/dL High 200 - 499 mg/dL Very High > or = 500 mg/dL WBC (Bld) [#/Vol] 6.8 10*3/uL 4.4-11.0 [facility] Determination of erythrocyte mean corpuscular volume (MCV)Ordered By: Wale Cadena on 10-24-2023 MCV (RBC) [Entitic vol] 88.3 fL 81-[address] [facility] Erythrocyte distribution wid th ratioOrdered By: Wale Cadena on 10-24-2023 Erythrocyte distribution width (RBC) [Ratio] 16.3 % 11.6-14.6 [facility] Erythrocyte distribution wid th standard deviationOrdered By: Wale Cadena on 10-24-2023 Erythrocyte distribution width (RBC) [Entitic vol] 52.7 fL 35.1-43.9 [facility] Hematocrit Auto (Bld) [Volum e fraction]Ordered By: Wale Cadena on 10-24-2023 Hematocrit (Bld) [Volume fraction] 37.0 % 37-47 [facility] Laboratory - Chemistry and C hemistry - challengeOrdered By: Wale Cadena on 10-24-2023 Albumin/Globulin [Mass ratio] 0.7 {ratio} 0.9-2.4 [facility] ALP [Catalytic activity/Vol] 62 U/L 45-117 [facility] ALT [Catalytic activity/Vol] 12 U/L 13-56 [facility] Cholesterol in HDL [Mass/Vol] 42 mg/dL >40 [facility] Comment on above: The drugs N-Acetylcy steine and Metamizole may falsely depress this assay. Reference Range HDL <40 mg/dL Low HDL Cholesterol HDL >or= 60 mg/dL High HDL Cholesterol Cholesterol in LDL [Mass/Vol] 104 mg/dL 0-130 [facility] CO2 [Moles/Vol] 26.0 mmol/L 21.0-32.0 [facility] Globulin (S) [Mass/Vol] 4.3 g/dL 2.2-4.2 [facility] Urea nitrogen/Creatinine [Mass ratio] 40.4 mg/mg 10-20 [facility] Laboratory - Hematology and Cell countsOrdered By: Wale Cadena on 10-24-2023 MCH (RBC) [Entitic mass] 28.4 pg 27.0-32.0 [facility] MCHC (RBC) [Mass/Vol] 32.2 g/dL 32-[address] [facility] Platelet mean volume (Bld) [Entitic vol] 10.1 fL 6.2-12.0 [facility] Platelets (Bld) [#/Vol] 336 10*3/uL 150-450 [facility] No Panel InformationOrdered By: Wale Cadena on 10-24-2023 Estimated GFR (MDRD) Amer 91 mL/min >60 [facility] Comment on above: GFR Calc Estimated GFR (MDRD) Non-Af Amer 75 mL/min >60 [facility] Comment on above: Non- GFR Calc VLDL Cholesterol 49 mg/dL 5-40 [facility] RBC Auto (Bld) [#/Vol]Ordere d By: Wale Cadena on 10-24-2023 RBC (Bld) [#/Vol] 4.19 10*6/uL 4.2-5.4 [facility] Serum or plasma calcium love urement (mass/volume)Ordered By: Wale Cadena on 10-24-2023 Calcium [Mass/Vol] 9.0 mg/dL 8.5-10.1 [facility] Serum or plasma creatinine m easurement (mass/volume)Ordered By: Wale Cadena on 10-24-2023 Creatinine [Mass/Vol] 0.79 mg/dL 0.55-1.[address] [facility] Comment on above: The validity of the calculated GFR & GFRAA in patients over 70 years has not been determined. Clinical correlation is essential. Serum or plasma urea nitroge n measurement (mass/volume)Ordered By: Wale Cadena on 10-24-2023 Urea nitrogen [Mass/Vol] 32 mg/dL 7-18 [facility] Thin prep Papanicolaou smear with manual screeningOrdered By: Wale Cadena on 10-24-2023 Thin prep Papanicolaou smear with manual screening 3.0 g/dL 3.2-5.0 [facility] Thin prep Papanicolaou smear with manual screening 17 U/L 15-37 [facility] Thin prep Papanicolaou smear with manual screening 5 5-15 [facility] No Panel InformationOrdered By: Wale Cadena on 09-27-2023 Valproic Acid (Depakene) Level 45 ug/mL 50-100 [facility] Basophil percentageOrdered B y: Wale Cadena on 09-20-2023 Cholesterol [Mass/Vol] 211 mg/dL <200 [facility] Comment on above: <200 mg/dL Desirable 200-240 mg/dL Borderline >240 mg/dL High Risk Triglyceride [Mass/Vol] 291 mg/dL <199 [facility] Comment on above: The drugs N-Acetylcy steine and Metamizole may falsely depress this assay.Serum Triglycerides Reference Interval Normal <150 mg/dL Borderline high 150 - 199 mg/dL High 200 - 499 mg/dL Very High > or = 500 mg/dL Laboratory - Chemistry and C hemistry - challengeOrdered By: Wale Cadena on 09-20-2023 Cholesterol in HDL [Mass/Vol] 46 mg/dL >40 [facility] Comment on above: The drugs N-Acetylcy steine and Metamizole may falsely depress this assay. Reference Range HDL <40 mg/dL Low HDL Cholesterol HDL >or= 60 mg/dL High HDL Cholesterol Cholesterol in LDL [Mass/Vol] 107 mg/dL 0-130 [facility] No Panel InformationOrdered By: Wale Cadena on 09-20-2023 VLDL Cholesterol 58 mg/dL 5-40 [facility] Whole blood hemoglobin A1c/t otal hemoglobin ratio (mass fraction)Ordered By: Wale Cadena on 09-20-2023 HbA1c (Bld) [Mass fraction] 5.5 % 3.8-5.6 [facility] Comment on above: Normal < 5.7 % Predi abetic 5.7 - 6.4 % Diabetic >or= 6.5 % Please note range changes. No Panel InformationOrdered By: Wale Cadena on 08-29-2023 Valproic Acid (Depakene) Level 11 ug/mL 50-100 [facility] Basophil percentageOrdered B y: Wale Cadena on 08-26-2023 Bilirubin [Mass/Vol] 0.20 mg/dL 0.20-1.00 [facility] Comment on above: For patients on eltr ombopag therapy, use of Dimension Norco TBIL is not recommended. Chloride [Moles/Vol] 105 mmol/L 98-107 [facility] Glucose [Mass/Vol] 77 mg/dL 74-106 [facility] Hemoglobin (Bld) [Mass/Vol] 12.1 g/dL 12.0-15.0 [facility] Potassium [Moles/Vol] 4.0 mmol/L 3.5-5.[address] [facility] Protein [Mass/Vol] 7.6 g/dL 6.4-8.2 [facility] Sodium [Moles/Vol] 139 mmol/L 136-145 [facility] WBC (Bld) [#/Vol] 7.3 10*3/uL 4.4-11.0 [facility] Determination of erythrocyte mean corpuscular volume (MCV)Ordered By: Wale Cadena on 08-26-2023 MCV (RBC) [Entitic vol] 87.2 fL 81-[address] [facility] Erythrocyte distribution wid th ratioOrdered By: Wale Cadena on 08-26-2023 Erythrocyte distribution width (RBC) [Ratio] 15.7 % 11.6-14.6 [facility] Erythrocyte distribution wid th standard deviationOrdered By: Wale Cadena on 08-26-2023 Erythrocyte distribution width (RBC) [Entitic vol] 49.6 fL 35.1-43.9 [facility] Hematocrit Auto (Bld) [Volum e fraction]Ordered By: Wale Cadena on 08-26-2023 Hematocrit (Bld) [Volume fraction] 38.0 % 37-47 [facility] Laboratory - Chemistry and C hemistry - challengeOrdered By: Wale Cadena on 08-26-2023 Albumin/Globulin [Mass ratio] 0.7 {ratio} 0.9-2.4 [facility] ALP [Catalytic activity/Vol] 69 U/L 45-117 [facility] ALT [Catalytic activity/Vol] 16 U/L 13-56 [facility] CO2 [Moles/Vol] 29.0 mmol/L 21.0-32.0 [facility] Globulin (S) [Mass/Vol] 4.4 g/dL 2.2-4.2 [facility] Urea nitrogen/Creatinine [Mass ratio] 34.8 mg/mg 10-20 [facility] Laboratory - Hematology and Cell countsOrdered By: Wale Cadena on 08-26-2023 MCH (RBC) [Entitic mass] 27.8 pg 27.0-32.0 [facility] MCHC (RBC) [Mass/Vol] 31.8 g/dL 32-[address] [facility] Platelets (Bld) [#/Vol] 375 10*3/uL 150-450 [facility] No Panel InformationOrdered By: Wale Cadena on 08-26-2023 Estimated GFR (MDRD) Amer 86 mL/min >60 [facility] Comment on above: GFR Calc Estimated GFR (MDRD) Non-Af Amer 71 mL/min >60 [facility] Comment on above: Non- GFR Calc Platelet mean volume Fredrick-Ec ker (Bld) [Entitic vol]Ordered By: Wale Cadena on 08-26-2023 Platelet mean volume (Bld) [Entitic vol] 9.8 fL 6.2-12.0 [facility] RBC Auto (Bld) [#/Vol]Ordere d By: Wale Cadena on 08-26-2023 RBC (Bld) [#/Vol] 4.36 10*6/uL 4.2-5.4 [facility] Serum or plasma calcium love urement (mass/volume)Ordered By: Wale Cadena on 08-26-2023 Calcium [Mass/Vol] 9.5 mg/dL 8.5-10.1 [facility] Serum or plasma creatinine m easurement (mass/volume)Ordered By: Wale Cadena on 08-26-2023 Creatinine [Mass/Vol] 0.83 mg/dL 0.55-1.[address] [facility] Comment on above: The validity of the calculated GFR & GFRAA in patients over 70 years has not been determined. Clinical correlation is essential. Serum or plasma urea nitroge n measurement (mass/volume)Ordered By: Wale Cadena on 08-26-2023 Urea nitrogen [Mass/Vol] 29 mg/dL 7-18 [facility] Thin prep Papanicolaou smear with manual screeningOrdered By: Wale Cadena on 08-26-2023 Thin prep Papanicolaou smear with manual screening 3.2 g/dL 3.2-5.0 [facility] Thin prep Papanicolaou smear with manual screening 12 U/L 15-37 [facility] Thin prep Papanicolaou smear with manual screening 5 5-15 [facility] Basophil percentageOrdered B y: Wale Cadena on 07-31-2023 Basophil percentage 25-50 SEEN /hpf 0-5 [facility] Bilirubin Test strip Ql (U)O rdered By: Wale Cadena on 07-31-2023 Bilirubin Ql (U) Negative Negative [facility] Culture, urineOrdered By: Marcio Smith on 07-31-2023 Bacteria identified Cx Nom (U) ESBL Escherichia coli [facility] Ketones Test strip Ql (U)Ord ered By: Wale Cadena on 07-31-2023 Ketones Ql (U) Negative Negative [facility] Mucus LM Ql (Urine sed)Order ed By: Wale Cadena on 07-31-2023 Mucus Ql (Urine sed) RARE /hpf [facility] Nitrite Test strip Ql (U)Ord ered By: Wale Cadena on 07-31-2023 Nitrite Ql (U) Negative Negative [facility] Protein Test strip Ql (U)Ord ered By: Wale Cadena on 07-31-2023 Protein Ql (U) Negative Negative [facility] Squamous epithelial cells de tection in urine sediment by light microscopyOrdered By: Wale Cadena on 07-31-2023 Epithelial cells.squamous LM Ql (Urine sed) 0-5 SEEN /hpf 5-10 [facility] Urine blood detectionOrdered By: Wale Cadena on 07-31-2023 RBC Ql (U) 10 /ul Negative [facility] RBC Ql (U) 0-5 SEEN /hpf 0-5 [facility] Urine clarityOrdered By: Meggan Cadena on 07-31-2023 Clarity (U) Sl. Cloudy Clear [facility] Urine color determinationOrd ered By: Wale Cadena on 07-31-2023 Color (U) Yellow Yellow [facility] Urine glucose detectionOrder ed By: Wale Cadena on 07-31-2023 Glucose Ql (U) Normal mg/dl Normal [facility] Urine leukocyte esterase det ection by dipstickOrdered By: Wale Cadena on 07-31-2023 Leukocyte esterase Test strip Ql (U) 500 /ul Negative [facility] Urine pHOrdered By: Wale ulloa on 07-31-2023 pH (U) 6.5 [pH] 5.0 - 8.0 [facility] Urine sediment bacteria coun t by microscopy (number/high power field)Ordered By: Wale Cadena on 07-31-2023 Bacteria LM.HPF (Urine sed) [#/Area] 1 /[HPF] None Seen [facility] Urine specific gravity measu rementOrdered By: Wale Cadena on 07-31-2023 Specific gravity (U) [Rel density] 1.010 1.002-1.030 [facility] Urobilinogen Auto test strip Ql (U)Ordered By: Wale Cadena on 07-31-2023 Urobilinogen Ql (U) Normal mg/dl Normal [facility] Basophil percentageOrdered B y: Wale Cadena on 05-27-2023 Chloride [Moles/Vol] 106 mmol/L 98-107 [facility] Glucose [Mass/Vol] 92 mg/dL 74-106 [facility] Potassium [Moles/Vol] 4.6 mmol/L 3.5-5.[address] [facility] Sodium [Moles/Vol] 138 mmol/L 136-145 [facility] WBC (Bld) [#/Vol] 7.1 10*3/uL 4.4-11.0 [facility] Blood erythrocytes count (nu mber/volume)Ordered By: Wale Cadena on 05-27-2023 RBC (Bld) [#/Vol] 4.33 10*6/uL 4.2-5.4 [facility] Blood hemoglobin measurement (mass/volume)Ordered By: Wale Cadena on 05-27-2023 Hemoglobin (Bld) [Mass/Vol] 12.6 g/dL 12.0-15.0 [facility] Blood platelet mean volumeOr dered By: Wale Cadena on 05-27-2023 Platelet mean volume (Bld) [Entitic vol] 10.3 fL 6.2-12.0 [facility] Determination of erythrocyte mean corpuscular volume (MCV)Ordered By: Wale Cadena on 05-27-2023 MCV (RBC) [Entitic vol] 91.9 fL 81-99 [facility] Hematocrit Auto (Bld) [Volum e fraction]Ordered By: Wale Cadena on 05-27-2023 Hematocrit (Bld) [Volume fraction] 39.8 % 37-47 [facility] Laboratory - Chemistry and C hemistry - challengeOrdered By: Wale Cadena on 05-27-2023 CO2 [Moles/Vol] 27.0 mmol/L 21.0-32.0 [facility] Urea nitrogen/Creatinine [Mass ratio] 40.3 mg/mg 10-20 [facility] Laboratory - Hematology and Cell countsOrdered By: Wale Cadena on 05-27-2023 Erythrocyte distribution width (RBC) [Entitic vol] 52.9 fL 35.1-43.9 [facility] Erythrocyte distribution width (RBC) [Ratio] 15.5 % 11.6-14.6 [facility] MCH (RBC) [Entitic mass] 29.1 pg 27.0-32.0 [facility] MCHC Auto (RBC) [Mass/Vol]Or dered By: Wale Cadena on 05-27-2023 MCHC (RBC) [Mass/Vol] 31.7 g/dL 32-[address] [facility] No Panel InformationOrdered By: Wale Cadena on 05-27-2023 Estimated GFR (MDRD) Amer 82 mL/min >60 [facility] Comment on above: GFR Calc Estimated GFR (MDRD) Non-Af Amer 68 mL/min >60 [facility] Comment on above: Non- GFR Calc Platelets bldOrdered By: Meggan Cadena on 05-27-2023 Platelets (Bld) [#/Vol] 294 10*3/uL 150-450 [facility] Serum or plasma calcium love urement (mass/volume)Ordered By: Wale Cadena on 05-27-2023 Calcium [Mass/Vol] 9.5 mg/dL 8.5-10.1 [facility] Serum or plasma creatinine m easurement (mass/volume)Ordered By: Wale Cadena on 05-27-2023 Creatinine [Mass/Vol] 0.87 mg/dL 0.55-1.[address] [facility] Comment on above: The validity of the calculated GFR & GFRAA in patients over 70 years has not been determined. Clinical correlation is essential. Serum or plasma urea nitroge n measurement (mass/volume)Ordered By: Wale Cadena on 05-27-2023 Urea nitrogen [Mass/Vol] 35 mg/dL 7-18 [facility] Thin prep Papanicolaou smear with manual screeningOrdered By: Wale Cadena on 05-27-2023 Thin prep Papanicolaou smear with manual screening 5 5-15 [facility] Basophil percentageOrdered B y: Wale Cadena on 05-23-2023 Bilirubin [Mass/Vol] 0.20 mg/dL 0.20-1.00 [facility] Comment on above: For patients on eltr ombopag therapy, use of Dimension Norco TBIL is not recommended. Chloride [Moles/Vol] 105 mmol/L 98-107 [facility] Glucose [Mass/Vol] 89 mg/dL 74-106 [facility] Potassium [Moles/Vol] 4.3 mmol/L 3.5-5.[address] [facility] Protein [Mass/Vol] 7.6 g/dL 6.4-8.2 [facility] Sodium [Moles/Vol] 139 mmol/L 136-145 [facility] WBC (Bld) [#/Vol] 8.0 10*3/uL 4.4-11.0 [facility] Blood erythrocytes count (nu mber/volume)Ordered By: Wale Cadena on 05-23-2023 RBC (Bld) [#/Vol] 4.04 10*6/uL 4.2-5.4 [facility] Blood hemoglobin measurement (mass/volume)Ordered By: Wale Cadena on 05-23-2023 Hemoglobin (Bld) [Mass/Vol] 11.6 g/dL 12.0-15.0 [facility] Blood platelet mean volumeOr dered By: Wale Cadena on 05-23-2023 Platelet mean volume (Bld) [Entitic vol] 10.5 fL 6.2-12.0 [facility] Culture, urineOrdered By: Marcio Smith on 05-23-2023 Bacteria identified Cx Nom (U) Presumptive E. coli [facility] Determination of erythrocyte mean corpuscular volume (MCV)Ordered By: Wale Cadena on 05-23-2023 MCV (RBC) [Entitic vol] 93.3 fL 81-99 [facility] Hematocrit Auto (Bld) [Volum e fraction]Ordered By: Wale Cadena on 05-23-2023 Hematocrit (Bld) [Volume fraction] 37.7 % 37-47 [facility] Laboratory - Chemistry and C hemistry - challengeOrdered By: Wale Cadena on 05-23-2023 ALP [Catalytic activity/Vol] 65 U/L 45-117 [facility] ALT [Catalytic activity/Vol] 18 U/L 13-56 [facility] CO2 [Moles/Vol] 28.0 mmol/L 21.0-32.0 [facility] Globulin (S) [Mass/Vol] 4.5 g/dL 2.2-4.2 [facility] Urea nitrogen/Creatinine [Mass ratio] 35.9 mg/mg 10-20 [facility] Laboratory - Hematology and Cell countsOrdered By: Wale Cadena on 05-23-2023 Erythrocyte distribution width (RBC) [Entitic vol] 54.2 fL 35.1-43.9 [facility] Erythrocyte distribution width (RBC) [Ratio] 15.7 % 11.6-14.6 [facility] MCH (RBC) [Entitic mass] 28.7 pg 27.0-32.0 [facility] MCHC Auto (RBC) [Mass/Vol]Or dered By: Wale Cadena on 05-23-2023 MCHC (RBC) [Mass/Vol] 30.8 g/dL 32-[address] [facility] No Panel InformationOrdered By: Wale Cadena on 05-23-2023 Estimated GFR (MDRD) Amer 101 mL/min >60 [facility] Comment on above: GFR Calc Estimated GFR (MDRD) Non-Af Amer 84 mL/min >60 [facility] Comment on above: Non- GFR Calc Platelets bldOrdered By: Meggan florida Tammi on 05-23-2023 Platelets (Bld) [#/Vol] 266 10*3/uL 150-450 [facility] Serum or plasma albumin love urement (mass/volume)Ordered By: Wale Cadena on 05-23-2023 Albumin [Mass/Vol] 3.1 g/dL 3.2-5.0 [facility] Serum or plasma albumin/glob ulin mass ratioOrdered By: Wale Cadena on 05-23-2023 Albumin/Globulin [Mass ratio] 0.7 {ratio} 0.9-2.4 [facility] Serum or plasma calcium love urement (mass/volume)Ordered By: Wale Cadena on 05-23-2023 Calcium [Mass/Vol] 9.4 mg/dL 8.5-10.1 [facility] Serum or plasma creatinine m easurement (mass/volume)Ordered By: Wale Cadena on 05-23-2023 Creatinine [Mass/Vol] 0.72 mg/dL 0.55-1.[address] [facility] Comment on above: The validity of the calculated GFR & GFRAA in patients over 70 years has not been determined. Clinical correlation is essential. Serum or plasma urea nitroge n measurement (mass/volume)Ordered By: Wale Cadena on 05-23-2023 Urea nitrogen [Mass/Vol] 26 mg/dL 7-18 [facility] Thin prep Papanicolaou smear with manual screeningOrdered By: Wale Cadena on 05-23-2023 Thin prep Papanicolaou smear with manual screening 8 U/L 15-37 [facility] Thin prep Papanicolaou smear with manual screening 6 5-15 [facility] Bilirubin Test strip Ql (U)O rdered By: Wale Cadena on 05-22-2023 Bilirubin Ql (U) Negative Negative [facility] Culture, urineOrdered By: Marcio Smith on 05-22-2023 Bacteria identified Cx Nom (U) Presumptive E. coli [facility] Ketones Test strip Ql (U)Ord ered By: Wale Cadena on 05-22-2023 Ketones Ql (U) Negative Negative [facility] Nitrite Test strip Ql (U)Ord ered By: Wale Cadena on 05-22-2023 Nitrite Ql (U) Negative Negative [facility] Protein Test strip Ql (U)Ord ered By: Wale Cadena on 05-22-2023 Protein Ql (U) Negative Negative [facility] Urine blood detectionOrdered By: Wale Cadena on 05-22-2023 RBC Ql (U) 10 /ul Negative [facility] Urine clarityOrdered By: Meggan Cadena on 05-22-2023 Clarity (U) Cloudy Clear [facility] Urine color determinationOrd ered By: Wale Cadena on 05-22-2023 Color (U) Yellow Yellow [facility] Urine glucose detectionOrder ed By: Wale Cadena on 05-22-2023 Glucose Ql (U) Normal mg/dl Normal [facility] Urine leukocyte esterase det ection by dipstickOrdered By: Wale Cadena on 05-22-2023 Leukocyte esterase Test strip Ql (U) 500 /ul Negative [facility] Urine pHOrdered By: Wale ulloa on 05-22-2023 pH (U) 7.0 [pH] 5.0 - 8.0 [facility] Urine specific gravity measu rementOrdered By: Wale Cadena on 05-22-2023 Specific gravity (U) [Rel density] 1.010 1.002-1.030 [facility] Urobilinogen Auto test strip Ql (U)Ordered By: Wale Cadena on 05-22-2023 Urobilinogen Ql (U) Normal mg/dl Normal [facility] No Panel InformationOrdered By: Wale Cadena on 04-26-2023 Valproic Acid (Depakene) Level 54 ug/mL 50-100 [facility] Basophil percentageOrdered B y: Wale Cadena on 04-24-2023 Cholesterol [Mass/Vol] 169 mg/dL <200 [facility] Comment on above: <200 mg/dL Desirable 200-240 mg/dL Borderline >240 mg/dL High Risk Triglyceride [Mass/Vol] 242 mg/dL <199 [facility] Comment on above: The drugs N-Acetylcy steine and Metamizole may falsely depress this assay.Serum Triglycerides Reference Interval Normal <150 mg/dL Borderline high 150 - 199 mg/dL High 200 - 499 mg/dL Very High > or = 500 mg/dL Serum or plasma cholesterol in HDL measurement (mass/volume)Ordered By: Wale Cadena on 04-24-2023 Cholesterol in HDL [Mass/Vol] 35 mg/dL >40 [facility] Comment on above: The drugs N-Acetylcy steine and Metamizole may falsely depress this assay. Reference Range HDL <40 mg/dL Low HDL Cholesterol HDL >or= 60 mg/dL High HDL Cholesterol Serum or plasma cholesterol in VLDL measurement (mass/volume)Ordered By: Wale Cadena on 04-24-2023 Cholesterol in VLDL [Mass/Vol] 48 mg/dL 5-40 [facility] Serum or plasma low density lipoprotein (LDL) cholesterol measurement (mass/volume)Ordered By: Wale Cadena on 04-24-2023 Cholesterol in LDL [Mass/Vol] 86 mg/dL 0-130 [facility] Basophil percentageOrdered B y: Wale Cadena on 03-20-2023 Cholesterol [Mass/Vol] 184 mg/dL <200 [facility] Comment on above: <200 mg/dL Desirable 200-240 mg/dL Borderline >240 mg/dL High Risk Triglyceride [Mass/Vol] 289 mg/dL <199 [facility] Comment on above: The drugs N-Acetylcy steine and Metamizole may falsely depress this assay.Serum Triglycerides Reference Interval Normal <150 mg/dL Borderline high 150 - 199 mg/dL High 200 - 499 mg/dL Very High > or = 500 mg/dL No Panel InformationOrdered By: Wale Cadena on 03-20-2023 Valproic Acid (Depakene) Level 53 ug/mL 50-100 [facility] Serum or plasma cholesterol in HDL measurement (mass/volume)Ordered By: Wale Cadena on 03-20-2023 Cholesterol in HDL [Mass/Vol] 40 mg/dL >40 [facility] Comment on above: The drugs N-Acetylcy steine and Metamizole may falsely depress this assay. Reference Range HDL <40 mg/dL Low HDL Cholesterol HDL >or= 60 mg/dL High HDL Cholesterol Serum or plasma cholesterol in VLDL measurement (mass/volume)Ordered By: Wale Cadena on 03-20-2023 Cholesterol in VLDL [Mass/Vol] 58 mg/dL 5-40 [facility] Serum or plasma low density lipoprotein (LDL) cholesterol measurement (mass/volume)Ordered By: Wale Cadena on 03-20-2023 Cholesterol in LDL [Mass/Vol] 86 mg/dL 0-130 [facility] Whole blood hemoglobin A1c/t otal hemoglobin ratio (mass fraction)Ordered By: Wale Cadena on 03-20-2023 HbA1c (Bld) [Mass fraction] 5.3 % 3.8-5.6 [facility] Comment on above: Normal < 5.7 % Predi abetic 5.7 - 6.4 % Diabetic >or= 6.5 % Please note range changes. Culture, urineOrdered By: Marcio Smith on 03-06-2023 Bacteria identified Cx Nom (U) Presumptive E. coli [facility] No Panel InformationOrdered By: Wale Cadena on 01-25-2023 Valproic Acid (Depakene) Level 58 ug/mL 50-100 [facility] Basophil percentageOrdered B y: Wale Cadena on 01-22-2023 Chloride [Moles/Vol] 105 mmol/L 98-107 [facility] Glucose [Mass/Vol] 82 mg/dL 74-106 [facility] Potassium [Moles/Vol] 4.5 mmol/L 3.5-5.[address] [facility] Comment on above: Slight Hemolysis, Re sult may be falsely increased. Sodium [Moles/Vol] 138 mmol/L 136-145 [facility] WBC (Bld) [#/Vol] 8.6 10*3/uL 4.4-11.0 [facility] Blood erythrocytes count (nu mber/volume)Ordered By: Wale Cadena on 01-22-2023 RBC (Bld) [#/Vol] 4.36 10*6/uL 4.2-5.4 [facility] Blood hemoglobin measurement (mass/volume)Ordered By: Wale Cadena on 01-22-2023 Hemoglobin (Bld) [Mass/Vol] 12.9 g/dL 12.0-15.0 [facility] Blood platelet mean volumeOr dered By: Wale Cadena on 01-22-2023 Platelet mean volume (Bld) [Entitic vol] 9.6 fL 6.2-12.0 [facility] Determination of erythrocyte mean corpuscular volume (MCV)Ordered By: Wale Cadena on 01-22-2023 MCV (RBC) [Entitic vol] 94.0 fL 81-99 [facility] Hematocrit Auto (Bld) [Volum e fraction]Ordered By: Wale Cadena on 01-22-2023 Hematocrit (Bld) [Volume fraction] 41.0 % 37-47 [facility] Laboratory - Chemistry and C hemistry - challengeOrdered By: Wale Cadena on 01-22-2023 CO2 [Moles/Vol] 27.0 mmol/L 21.0-32.0 [facility] Urea nitrogen/Creatinine [Mass ratio] 39.3 mg/mg 10-20 [facility] Laboratory - Hematology and Cell countsOrdered By: Wale Cadena on 01-22-2023 Erythrocyte distribution width (RBC) [Entitic vol] 54.7 fL 35.1-43.9 [facility] Erythrocyte distribution width (RBC) [Ratio] 15.9 % 11.6-14.6 [facility] MCH (RBC) [Entitic mass] 29.6 pg 27.0-32.0 [facility] MCHC Auto (RBC) [Mass/Vol]Or dered By: Wale Cadena on 01-22-2023 MCHC (RBC) [Mass/Vol] 31.5 g/dL 32-[address] [facility] No Panel InformationOrdered By: Wale Cadena on 01-22-2023 Estimated GFR (MDRD) Amer 103 mL/min >60 [facility] Comment on above: GFR Calc Estimated GFR (MDRD) Non-Af Amer 85 mL/min >60 [facility] Comment on above: Non- GFR Calc Platelets bldOrdered By: Meggan Cadena on 01-22-2023 Platelets (Bld) [#/Vol] 341 10*3/uL 150-450 [facility] Serum or plasma calcium love urement (mass/volume)Ordered By: Wale Cadena on 01-22-2023 Calcium [Mass/Vol] 9.6 mg/dL 8.5-10.1 [facility] Serum or plasma creatinine m easurement (mass/volume)Ordered By: Wale Cadena on 01-22-2023 Creatinine [Mass/Vol] 0.71 mg/dL 0.55-1.[address] [facility] Comment on above: The validity of the calculated GFR & GFRAA in patients over 70 years has not been determined. Clinical correlation is essential. Serum or plasma urea nitroge n measurement (mass/volume)Ordered By: Wale Cadena on 01-22-2023 Urea nitrogen [Mass/Vol] 28 mg/dL 7-18 [facility] Thin prep Papanicolaou smear with manual screeningOrdered By: Wale Cadena on 01-22-2023 Thin prep Papanicolaou smear with manual screening 6 5-15 [facility] No Panel InformationOrdered By: Wale Cadena on 12-18-2022 Thyroid Stimulating Hormone (TSH) 4.73 uIU/mL 0.358-3.74 [facility] Valproic Acid (Depakene) Level 50 ug/mL 50-100 [facility] No Panel InformationOrdered By: Wale Cadena on 10-24-2022 Valproic Acid (Depakene) Level 33 ug/mL 50-100 [facility] Basophil percentageOrdered B y: Wale Cadena on 10-22-2022 Cholesterol [Mass/Vol] 222 mg/dL <200 [facility] Comment on above: <200 mg/dL Desirable 200-240 mg/dL Borderline >240 mg/dL High Risk Triglyceride [Mass/Vol] 176 mg/dL <199 [facility] Comment on above: The drugs N-Acetylcy steine and Metamizole may falsely depress this assay.Serum Triglycerides Reference Interval Normal <150 mg/dL Borderline high 150 - 199 mg/dL High 200 - 499 mg/dL Very High > or = 500 mg/dL Serum or plasma cholesterol in HDL measurement (mass/volume)Ordered By: Wale Cadena on 10-22-2022 Cholesterol in HDL [Mass/Vol] 50 mg/dL >40 [facility] Comment on above: The drugs N-Acetylcy steine and Metamizole may falsely depress this assay. Reference Range HDL <40 mg/dL Low HDL Cholesterol HDL >or= 60 mg/dL High HDL Cholesterol Serum or plasma cholesterol in VLDL measurement (mass/volume)Ordered By: Wale Cadena on 10-22-2022 Cholesterol in VLDL [Mass/Vol] 35 mg/dL 5-40 [facility] Serum or plasma low density lipoprotein (LDL) cholesterol measurement (mass/volume)Ordered By: Wale Cadena on 10-22-2022 Cholesterol in LDL [Mass/Vol] 137 mg/dL 0-130 [facility] No Panel InformationOrdered By: Wale Cadena on 09-24-2022 Valproic Acid (Depakene) Level 45 ug/mL 50-100 [facility] Basophil percentageOrdered B y: Wale Cadena on 09-20-2022 Cholesterol [Mass/Vol] 241 mg/dL <200 [facility] Comment on above: <200 mg/dL Desirable 200-240 mg/dL Borderline >240 mg/dL High Risk Triglyceride [Mass/Vol] 395 mg/dL <199 [facility] Comment on above: The drugs N-Acetylcy steine and Metamizole may falsely depress this assay.Serum Triglycerides Reference Interval Normal <150 mg/dL Borderline high 150 - 199 mg/dL High 200 - 499 mg/dL Very High > or = 500 mg/dL No Panel InformationOrdered By: Wale Cadena on 09-20-2022 Valproic Acid (Depakene) Level 37 ug/mL 50-100 [facility] Serum or plasma cholesterol in HDL measurement (mass/volume)Ordered By: Wale Cadena on 09-20-2022 Cholesterol in HDL [Mass/Vol] 42 mg/dL >40 [facility] Comment on above: The drugs N-Acetylcy steine and Metamizole may falsely depress this assay. Reference Range HDL <40 mg/dL Low HDL Cholesterol HDL >or= 60 mg/dL High HDL Cholesterol Serum or plasma cholesterol in VLDL measurement (mass/volume)Ordered By: Wale Cadena on 09-20-2022 Cholesterol in VLDL [Mass/Vol] 79 mg/dL 5-40 [facility] Serum or plasma low density lipoprotein (LDL) cholesterol measurement (mass/volume)Ordered By: Wale Cadena on 09-20-2022 Cholesterol in LDL [Mass/Vol] 120 mg/dL 0-130 [facility] Whole blood hemoglobin A1c/t otal hemoglobin ratio (mass fraction)Ordered By: Wale Cadena on 09-20-2022 HbA1c (Bld) [Mass fraction] 5.3 % 3.8-5.6 [facility] Comment on above: Normal < 5.7 % Predi abetic 5.7 - 6.4 % Diabetic >or= 6.5 % Please note range changes. Basophil percentageOrdered B y: Wale Cadena on 07-27-2022 Chloride [Moles/Vol] 106 mmol/L 98-107 [facility] Glucose [Mass/Vol] 91 mg/dL 74-106 [facility] Potassium [Moles/Vol] 4.1 mmol/L 3.5-5.[address] [facility] Sodium [Moles/Vol] 139 mmol/L 136-145 [facility] WBC (Bld) [#/Vol] 9.6 10*3/uL 4.4-11.0 [facility] Blood erythrocytes count (nu mber/volume)Ordered By: Wale Cadena on 07-27-2022 RBC (Bld) [#/Vol] 3.85 10*6/uL 4.2-5.4 [facility] Blood hemoglobin measurement (mass/volume)Ordered By: Wale Cadena on 07-27-2022 Hemoglobin (Bld) [Mass/Vol] 11.6 g/dL 12.0-15.0 [facility] Blood platelet mean volumeOr dered By: Wale Cadena on 07-27-2022 Platelet mean volume (Bld) [Entitic vol] 10.9 fL 6.2-12.0 [facility] Determination of erythrocyte mean corpuscular volume (MCV)Ordered By: Wale Cadena on 07-27-2022 MCV (RBC) [Entitic vol] 95.1 fL 81-[address] [facility] Hematocrit Auto (Bld) [Volum e fraction]Ordered By: Wale Cadena on 07-27-2022 Hematocrit (Bld) [Volume fraction] 36.6 % 37-47 [facility] Laboratory - Chemistry and C hemistry - challengeOrdered By: Wale Cadena on 07-27-2022 CO2 [Moles/Vol] 29.0 mmol/L 21.0-32.0 [facility] Urea nitrogen/Creatinine [Mass ratio] 31.3 mg/mg 10-20 [facility] Laboratory - Hematology and Cell countsOrdered By: Wale Cadena on 07-27-2022 Erythrocyte distribution width (RBC) [Entitic vol] 51.2 fL 35.1-43.9 [facility] Erythrocyte distribution width (RBC) [Ratio] 14.7 % 11.6-14.6 [facility] MCH (RBC) [Entitic mass] 30.1 pg 27.0-32.0 [facility] MCHC Auto (RBC) [Mass/Vol]Or dered By: Wale Cadena on 07-27-2022 MCHC (RBC) [Mass/Vol] 31.7 g/dL 32-[address] [facility] No Panel InformationOrdered By: Wale Cadena on 07-27-2022 Estimated GFR (MDRD) Amer 100 mL/min >60 [facility] Comment on above: GFR Calc Estimated GFR (MDRD) Non-Af Amer 83 mL/min >60 [facility] Comment on above: Non- GFR Calc Valproic Acid (Depakene) Level 44 ug/mL 50-100 [facility] Platelets bldOrdered By: Meggan Cadena on 07-27-2022 Platelets (Bld) [#/Vol] 305 10*3/uL 150-450 [facility] Serum or plasma calcium love urement (mass/volume)Ordered By: Wale Cadena on 07-27-2022 Calcium [Mass/Vol] 9.1 mg/dL 8.5-10.1 [facility] Serum or plasma creatinine m easurement (mass/volume)Ordered By: Wale Cadena on 07-27-2022 Creatinine [Mass/Vol] 0.73 mg/dL 0.55-1.[address] [facility] Comment on above: The validity of the calculated GFR & GFRAA in patients over 70 years has not been determined. Clinical correlation is essential. Serum or plasma urea nitroge n measurement (mass/volume)Ordered By: Wale Cadena on 07-27-2022 Urea nitrogen [Mass/Vol] 23 mg/dL 7-18 [facility] Thin prep Papanicolaou smear with manual screeningOrdered By: Wale Cadena on 07-27-2022 Thin prep Papanicolaou smear with manual screening 4 5-15 [facility] No Panel InformationOrdered By: Wale Cadena on 07-26-2022 Valproic Acid (Depakene) Level 44 ug/mL 50-100 [facility] Basophil percentageOrdered B y: Wale Cadena on 04-27-2022 Bilirubin [Mass/Vol] 0.20 mg/dL 0.20-1.00 [facility] Comment on above: For patients on eltr ombopag therapy, use of Dimension Norco TBIL is not recommended. Chloride [Moles/Vol] 103 mmol/L 98-107 [facility] Glucose [Mass/Vol] 79 mg/dL 74-106 [facility] Potassium [Moles/Vol] 3.9 mmol/L 3.5-5.[address] [facility] Protein [Mass/Vol] 8.0 g/dL 6.4-8.2 [facility] Sodium [Moles/Vol] 137 mmol/L 136-145 [facility] Laboratory - Chemistry and C hemistry - challengeOrdered By: Wale Cadena on 04-27-2022 ALP [Catalytic activity/Vol] 68 U/L 45-117 [facility] ALT [Catalytic activity/Vol] 22 U/L 13-56 [facility] CO2 [Moles/Vol] 25.0 mmol/L 21.0-32.0 [facility] Globulin (S) [Mass/Vol] 5.1 g/dL 2.2-4.[address] [facility] Urea nitrogen/Creatinine [Mass ratio] 21.3 mg/mg 10-20 [facility] No Panel InformationOrdered By: Wale Cadena on 04-27-2022 Estimated GFR (MDRD) Amer 97 mL/min >60 [facility] Comment on above: GFR Calc Estimated GFR (MDRD) Non-Af Amer 80 mL/min >60 [facility] Comment on above: Non- GFR Calc Serum or plasma albumin love urement (mass/volume)Ordered By: Wale Cadena on 04-27-2022 Albumin [Mass/Vol] 2.9 g/dL 3.2-5.0 [facility] Serum or plasma albumin/glob ulin mass ratioOrdered By: Wale Cadena on 04-27-2022 Albumin/Globulin [Mass ratio] 0.6 {ratio} 0.9-2.4 [facility] Serum or plasma calcium love urement (mass/volume)Ordered By: Wale Cadena on 04-27-2022 Calcium [Mass/Vol] 9.2 mg/dL 8.5-10.1 [facility] Serum or plasma creatinine m easurement (mass/volume)Ordered By: Wale Cadena on 04-27-2022 Creatinine [Mass/Vol] 0.75 mg/dL 0.55-1.[address] [facility] Comment on above: The validity of the calculated GFR & GFRAA in patients over 70 years has not been determined. Clinical correlation is essential. Serum or plasma urea nitroge n measurement (mass/volume)Ordered By: Wale Cadena on 04-27-2022 Urea nitrogen [Mass/Vol] 16 mg/dL 7-18 [facility] Thin prep Papanicolaou smear with manual screeningOrdered By: Wale Cadena on 04-27-2022 Thin prep Papanicolaou smear with manual screening 17 U/L 15-37 [facility] Thin prep Papanicolaou smear with manual screening 9 5-15 [facility] Basophil percentageOrdered B y: Wale Cadena on 04-26-2022 WBC (Bld) [#/Vol] 8.9 10*3/uL 4.4-11.0 [facility] Blood erythrocytes count (nu mber/volume)Ordered By: Wale Cadena on 04-26-2022 RBC (Bld) [#/Vol] 4.00 10*6/uL 4.2-5.4 [facility] Blood hemoglobin measurement (mass/volume)Ordered By: Wale Cadena on 04-26-2022 Hemoglobin (Bld) [Mass/Vol] 12.0 g/dL 12.0-15.0 [facility] Blood platelet mean volumeOr dered By: Wale Cadena on 04-26-2022 Platelet mean volume (Bld) [Entitic vol] 11.2 fL 6.2-12.0 [facility] Determination of erythrocyte mean corpuscular volume (MCV)Ordered By: Wale Cadena on 04-26-2022 MCV (RBC) [Entitic vol] 95.0 fL 81-99 [facility] Hematocrit Auto (Bld) [Volum e fraction]Ordered By: Wale Cadena on 04-26-2022 Hematocrit (Bld) [Volume fraction] 38.0 % 37-47 [facility] Laboratory - Hematology and Cell countsOrdered By: Wale Cadena on 04-26-2022 Erythrocyte distribution width (RBC) [Entitic vol] 51.7 fL 35.1-43.9 [facility] Erythrocyte distribution width (RBC) [Ratio] 14.9 % 11.6-14.6 [facility] MCH (RBC) [Entitic mass] 30.0 pg 27.0-32.0 [facility] MCHC Auto (RBC) [Mass/Vol]Or dered By: Wale Cadena on 04-26-2022 MCHC (RBC) [Mass/Vol] 31.6 g/dL 32-[address] [facility] No Panel InformationOrdered By: Wale Cadena on 04-26-2022 Valproic Acid (Depakene) Level 63 ug/mL 50-100 [facility] Platelets bldOrdered By: Meggan Cadena on 04-26-2022 Platelets (Bld) [#/Vol] 379 10*3/uL 150-450 [facility] Basophil percentageOrdered B y: Wale Cadena on 04-23-2022 Chloride [Moles/Vol] 105 mmol/L 98-107 [facility] Cholesterol [Mass/Vol] 175 mg/dL <200 [facility] Comment on above: <200 mg/dL Desirable 200-240 mg/dL Borderline >240 mg/dL High Risk Glucose [Mass/Vol] 77 mg/dL 74-106 [facility] Potassium [Moles/Vol] 3.7 mmol/L 3.5-5.[address] [facility] Comment on above: Slight Hemolysis, Re sult may be falsely increased. Sodium [Moles/Vol] 141 mmol/L 136-145 [facility] Triglyceride [Mass/Vol] 179 mg/dL <199 [facility] Comment on above: The drugs N-Acetylcy steine and Metamizole may falsely depress this assay.Serum Triglycerides Reference Interval Normal <150 mg/dL Borderline high 150 - 199 mg/dL High 200 - 499 mg/dL Very High > or = 500 mg/dL WBC (Bld) [#/Vol] 11.2 10*3/uL 4.4-11.0 [facility] Blood erythrocytes count (nu mber/volume)Ordered By: Wale Cadena on 04-23-2022 RBC (Bld) [#/Vol] 3.72 10*6/uL 4.2-5.4 [facility] Blood hemoglobin measurement (mass/volume)Ordered By: Wale Cadena on 04-23-2022 Hemoglobin (Bld) [Mass/Vol] 11.3 g/dL 12.0-15.0 [facility] Blood platelet mean volumeOr dered By: Wale Cadena on 04-23-2022 Platelet mean volume (Bld) [Entitic vol] 10.5 fL 6.2-12.0 [facility] Determination of erythrocyte mean corpuscular volume (MCV)Ordered By: Wale Cadena on 04-23-2022 MCV (RBC) [Entitic vol] 96.5 fL 81-99 [facility] Hematocrit Auto (Bld) [Volum e fraction]Ordered By: Wale Cadena on 04-23-2022 Hematocrit (Bld) [Volume fraction] 35.9 % 37-47 [facility] Laboratory - Chemistry and C hemistry - challengeOrdered By: Wale Cadena on 04-23-2022 CO2 [Moles/Vol] 28.0 mmol/L 21.0-32.0 [facility] Urea nitrogen/Creatinine [Mass ratio] 15.3 mg/mg 10-20 [facility] Laboratory - Hematology and Cell countsOrdered By: Wale Cadena on 04-23-2022 Erythrocyte distribution width (RBC) [Entitic vol] 55.3 fL 35.1-43.9 [facility] Erythrocyte distribution width (RBC) [Ratio] 15.7 % 11.6-14.6 [facility] MCH (RBC) [Entitic mass] 30.4 pg 27.0-32.0 [facility] MCHC Auto (RBC) [Mass/Vol]Or dered By: Wale Cadena on 04-23-2022 MCHC (RBC) [Mass/Vol] 31.5 g/dL 32-[address] [facility] No Panel InformationOrdered By: Wale Cadena on 04-23-2022 Estimated GFR (MDRD) Amer 103 mL/min >60 [facility] Comment on above: GFR Calc Estimated GFR (MDRD) Non-Af Amer 85 mL/min >60 [facility] Comment on above: Non- GFR Calc Platelets bldOrdered By: Meggan Cadena on 04-23-2022 Platelets (Bld) [#/Vol] 408 10*3/uL 150-450 [facility] Serum or plasma calcium love urement (mass/volume)Ordered By: Wale Cadena on 04-23-2022 Calcium [Mass/Vol] 9.1 mg/dL 8.5-10.1 [facility] Serum or plasma cholesterol in HDL measurement (mass/volume)Ordered By: Wale Cadena on 04-23-2022 Cholesterol in HDL [Mass/Vol] 37 mg/dL >40 [facility] Comment on above: The drugs N-Acetylcy steine and Metamizole may falsely depress this assay. Reference Range HDL <40 mg/dL Low HDL Cholesterol HDL >or= 60 mg/dL High HDL Cholesterol Serum or plasma cholesterol in VLDL measurement (mass/volume)Ordered By: Wale Cadena on 04-23-2022 Cholesterol in VLDL [Mass/Vol] 36 mg/dL 5-40 [facility] Serum or plasma creatinine m easurement (mass/volume)Ordered By: Wale Cadena on 04-23-2022 Creatinine [Mass/Vol] 0.72 mg/dL 0.55-1.[address] [facility] Comment on above: The validity of the calculated GFR & GFRAA in patients over 70 years has not been determined. Clinical correlation is essential. Serum or plasma low density lipoprotein (LDL) cholesterol measurement (mass/volume)Ordered By: Wale Cadena on 04-23-2022 Cholesterol in LDL [Mass/Vol] 102 mg/dL 0-130 [facility] Serum or plasma urea nitroge n measurement (mass/volume)Ordered By: Wale Cadena on 04-23-2022 Urea nitrogen [Mass/Vol] 11 mg/dL 7-18 [facility] Thin prep Papanicolaou smear with manual screeningOrdered By: Wale Cadena on 04-23-2022 Thin prep Papanicolaou smear with manual screening 8 5-15 [facility] Basophil percentageon 2021 Chloride [Moles/Vol] 106 mmol/L 98-107 [facility] Work Phone: Glucose [Mass/Vol] 100 mg/dL 74-106 [facility] Work Phone: Comment on above: Fasting Glucose resu lt from 100 to 125 mg/dL suggests IMPAIRED HOMEOSTASIS per A.D.A. criteria. Potassium [Moles/Vol] 3.4 mmol/L 3.5-5.[address] [facility] Work Phone: Sodium [Moles/Vol] 142 mmol/L 136-145 [facility] Work Phone: WBC (Bld) [#/Vol] 14.5 10*3/uL 4.4-11.0 [facility] Work Phone: Blood erythrocytes count (nu mber/volume)on 04-19-2022 RBC (Bld) [#/Vol] 4.10 10*6/uL 4.2-5.4 [facility] Work Phone: Blood hemoglobin measurement (mass/volume)on 04-19-2022 Hemoglobin (Bld) [Mass/Vol] 12.3 g/dL 12.0-15.0 [facility] Work Phone: Blood platelet mean volumeon 04-19-2022 Platelet mean volume (Bld) [Entitic vol] 10.2 fL 6.2-12.0 [facility] Work Phone: Determination of erythrocyte mean corpuscular volume (MCV)on 04-19-2022 MCV (RBC) [Entitic vol] 96.1 fL 81-99 [facility] Work Phone: Hematocrit Auto (Bld) [Volum e fraction]on 04-19-2022 Hematocrit (Bld) [Volume fraction] 39.4 % 37-47 [facility] Work Phone: Laboratory - Chemistry and C hemistry - challengeon 04-19-2022 CO2 [Moles/Vol] 28.0 mmol/L 21.0-32.0 [facility] Work Phone: Urea nitrogen/Creatinine [Mass ratio] 14.6 mg/mg 10-20 [facility] Work Phone: Laboratory - Hematology and Cell countson 04-19-2022 Erythrocyte distribution width (RBC) [Entitic vol] 55.3 fL 35.1-43.9 [facility] Work Phone: Erythrocyte distribution width (RBC) [Ratio] 16.0 % 11.6-14.6 [facility] Work Phone: MCH (RBC) [Entitic mass] 30.0 pg 27.0-32.0 [facility] Work Phone: MCHC Auto (RBC) [Mass/Vol]on 04-19-2022 MCHC (RBC) [Mass/Vol] 31.2 g/dL 32-[address] [facility] Work Phone: No Panel Informationon 04-19 Estimated GFR (MDRD) Amer 88 mL/min >60 [facility] Work Phone: Comment on above: GFR Calc Estimated GFR (MDRD) Non-Af Amer 73 mL/min >60 [facility] Work Phone: Comment on above: Non- GFR Calc Platelets bldon 04-19-2022 Platelets (Bld) [#/Vol] 557 10*3/uL 150-450 [facility] Work Phone: Serum or plasma calcium love urement (mass/volume)on 04-19-2022 Calcium [Mass/Vol] 9.2 mg/dL 8.5-10.1 [facility] Work Phone: Serum or plasma creatinine m easurement (mass/volume)on 04-19-2022 Creatinine [Mass/Vol] 0.82 mg/dL 0.55-1.[address] [facility] Work Phone: Comment on above: The validity of the calculated GFR & GFRAA in patients over 70 years has not been determined. Clinical correlation is essential. Serum or plasma urea nitroge n measurement (mass/volume)on 04-19-2022 Urea nitrogen [Mass/Vol] 12 mg/dL 7-18 [facility] Work Phone: Thin prep Papanicolaou smear with manual screeningon 04-19-2022 Thin prep Papanicolaou smear with manual screening 8 5-15 [facility] Work Phone: Basic Metabolic Panelon 04-05 Anion gap [Moles/Vol] 5 mmol/L Normal 3-13 [facility] Comment on above: Performed By: #### B MP3M, MG3, HEMDF #### [facility] [address] [place] [address] Calcium [Mass/Vol] 9.3 mg/dL Normal 8.4-10.4 [facility] Comment on above: Performed By: #### B MP3M, MG3, HEMDF #### [facility] [address] [place] [address] CO2 [Moles/Vol] 30 mmol/L Normal 22-30 [facility] Comment on above: Performed By: #### B MP3M, MG3, HEMDF #### [facility] [address] [place] [address] Glucose [Mass/Vol] 87 mg/dL Normal 70-100 [facility] Comment on above: Performed By: #### B MP3M, MG3, HEMDF #### [facility] [address] [place] [address] Urea nitrogen [Mass/Vol] 12 mg/dL Normal 9-20 [facility] Comment on above: Performed By: #### B MP3M, MG3, HEMDF #### [facility] [address] [place] [address] Creatinine [Mass/Vol] 0.67 mg/dL Normal 0.52-1.25 [facility] Comment on above: Performed By: #### B MP3M, MG3, HEMDF #### [facility] [address] [place] [address] GFR/1.73 sq M.predicted among blacks MDRD (S/P/Bld) [Vol rate/Area] mL/min/{1.73_m2} Normal >60 [facility] Comment on above: Performed By: #### Shorty MP3M, MG3, HEMDF #### [facility] [address] [place] [address] GFR/1.73 sq M.predicted among non-blacks MDRD (S/P/Bld) [Vol rate/Area] 87.3 mL/min/{1.73_m2} Normal >60 [facility] Comment on above: Result Comment: KDIG [...] By: #### B MP3M, MG3, HEMDF #### [facility] [address] [place] [address] Potassium [Moles/Vol] 3.5 mmol/L Normal 3.5-5.1 [facility] Comment on above: Performed By: #### Shorty MP3M, MG3, HEMDF #### [facility] [address] [place] [address] Sodium [Moles/Vol] 143 mmol/L Normal 135-145 [facility] Comment on above: Performed By: #### Shorty MP3M, MG3, HEMDF #### [facility] [address] [place] [address] Chloride [Moles/Vol] 108 mmol/L High 98-107 [facility] Comment on above: Performed By: #### B MP3M, MG3, HEMDF #### [facility] [address] [place] [address] Basic Metabolic Panel w/ Ref taiwo to MG 04-18-2022 Anion gap [Moles/Vol] 5 mmol/L 3 - 13 mmol/L [employer] Work Phone: Calcium [Mass/Vol] 9.3 mg/dL 8.4 - 10. 4 mg/dL [employer] Work Phone: Chloride [Moles/Vol] 108 mmol/L High 98 - 10 7 mmol/L [facility] Work Phone: CO2 [Moles/Vol] 30 mmol/L 22 - 30 mmol/L [employer] Work Phone: Creatinine [Mass/Vol] 0.67 mg/dL 0.52 - 1.25 mg/dL [employer] Work Phone: eGFR mL/min 60 - P INF mL/min [facility] Work Phone: EGFR IF NonAfrican Palauan 87.3 mL/min 60 - PINF mL/min [employer] Work Phone: Comment on above: KDIGO guidelines [...] [Mass/Vol] 87 mg/dL 70 - 100 mg/dL [employer] Work Phone: Interpretation and review of laboratory results Abnormal [employer] Work Phone: Potassium [Moles/Vol] 3.5 mmol/L 3.5 - 5.1 mmol/L [facility] Work Phone: Sodium [Moles/Vol] 143 mmol/L 135 - 145 mmol/L [facility] Work Phone: Urea nitrogen (BldV) [Mass/Vol] 12 mg/dL 9 - 20 mg/dL [facility] Work Phone: Test Performed by [facility], [address] [place], [place] [id number] [place] [address] LAB [facility] Work Phone: CBC with Auto Differentialon 04-18-2022 Absolute Baso # 0.1 10*3/uL 0 - 0.2 10*3/uL [facility] Work Phone: Absolute Neut # 9.0 10*3/uL High 1.8 - 7 10*3/uL [facility] Work Phone: Basophils/100 WBC (Bld) 1.0 % 0 - 2 % [facility] Work Phone: Eosinophils (Bld) [#/Vol] 0.2 10*3/uL 0 - 0.5 10*3/uL [facility] Work Phone: Eosinophils/100 WBC (Bld) 1.7 % 1 - 6 % [facility] Work Phone: Granulocytes/100 WBC (Bld) 72.6 % 40 - 80 % [facility] Work Phone: Hematocrit (Bld) [Volume fraction] 35.8 % 35 - 47 % [facility] Work Phone: Hemoglobin (Bld) [Mass/Vol] 12.0 g/dL 11.7 - 16 g/dL [facility] Work Phone: Interpretation and review of laboratory results Abnormal [facility] Work Phone: Lymphocytes (Bld) [#/Vol] 2.5 10*3/uL 1 - 4.3 10*3/uL [facility] Work Phone: Lymphocytes/100 WBC (Bld) 20.1 % 20 - 40 % [facility] Work Phone: MCH (RBC) [Entitic mass] 30.1 pg 26 - 34 pg [facility] Work Phone: MCHC (RBC) [Mass/Vol] 33.4 % 32 - 36 % [facility] Work Phone: MCV (RBC) [Entitic vol] 90.2 fL 79 - [address] [facility] Work Phone: Monocytes (Bld) [#/Vol] 0.6 10*3/uL 0 - 0.8 10*3/uL [facility] Work Phone: Monocytes/100 WBC (Bld) 4.6 % 2 - 10 % [facility] Work Phone: Platelet distribution width (Bld) [Ratio] 15.5 % High 11.5 - 14.5 % [facility] Work Phone: Platelet mean volume (Bld) [Entitic vol] 7.8 fL 7.4 - 12.4 fL [facility] Work Phone: Comment on above: MPV is a calculated measurement using platelet volume ratio. Platelets (Bld) [#/Vol] 500 10*3/uL High 140 - 440 10*3/uL [facility] Work Phone: RBC (Bld) [#/Vol] 3.97 10*6/uL 3.8 - 5.2 10*6/uL [facility] Work Phone: WBC (Bld) [#/Vol] 12.3 10*3/uL High 3.6 - 10.7 10*3/uL [facility] Work Phone: Test Performed by [employer], [address] [place], [place], [place] [id number] [place] [address] LAB [facility] Work Phone: Hemogram w/ Autodiffon 04-18 Abs Baso Cnt 0.1 10*3/uL Normal 0.0-0.2 [employer] Comment on above: Performed By: #### B MP3M, MG3, HEMDF #### [facility] [address] [place] [address] Abs Neutrophile Cnt 9.0 10*3/uL High 1.8-7.0 [facility] Comment on above: Performed By: #### B MP3M, MG3, HEMDF #### [facility] [address] [place] [address] Basophils/100 WBC (Bld) 1.0 % Normal 0.0-2.[address] [facility] Comment on above: Performed By: #### B MP3M, MG3, HEMDF #### [facility] [address] [place] [address] Eosinophils (Bld) [#/Vol] 0.2 10*3/uL Normal 0.0-0.5 [facility] Comment on above: Performed By: #### B MP3M, MG3, HEMDF #### [facility] [address] [place] [address] Eosinophils/100 WBC (Bld) 1.7 % Normal 1.0-6.0 [facility] Comment on above: Performed By: #### B MP3M, MG3, HEMDF #### [facility] [employer] [facility] [address] [place] [address] Erythrocyte distribution width (RBC) [Ratio] 15.5 % High 11.5-14.5 [facility] Comment on above: Performed By: #### B MP3M, MG3, HEMDF #### [facility] [address] [place] [address] Granulocytes/100 WBC (Bld) 72.6 % Normal 40.0-80.0 [facility] Comment on above: Performed By: #### B MP3M, MG3, HEMDF #### [facility] [employer] [facility] [address] [place] [address] Hematocrit (Bld) [Volume fraction] 35.8 % Normal 35.0-47.0 [facility] Comment on above: Performed By: #### B MP3M, MG3, HEMDF #### [facility] [employer] [facility] [address] [place] [address] Hemoglobin (Bld) [Mass/Vol] 12.0 g/dL Normal 11.7-16.0 [facility] Comment on above: Performed By: #### Shorty MP3M, MG3, HEMDF #### [facility] [address] [place] [address] Lymphocytes (Bld) [#/Vol] 2.5 10*3/uL Normal 1.0-4.3 [facility] Comment on above: Performed By: #### Shorty MP3M, MG3, HEMDF #### [facility] [address] [place] [address] Lymphocytes/100 WBC (Bld) 20.1 % Normal 20.0-40.0 [facility] Comment on above: Performed By: #### Shorty MP3M, MG3, HEMDF #### [facility] [address] [place] [address] MCH (RBC) [Entitic mass] 30.1 pg Normal 26.0-34.0 [facility] Comment on above: Performed By: #### Shorty MP3M, MG3, HEMDF #### [facility] [address] [place] [address] MCHC 33.4 % Normal 32.0-36.0 [facility] Comment on above: Performed By: #### Shorty MP3M, MG3, HEMDF #### [facility] [address] [place] [address] MCV (RBC) [Entitic vol] 90.2 fL Normal 79.0-98.[address] [facility] Comment on above: Performed By: #### Shorty MP3M, MG3, HEMDF #### [facility] [address] [place] [address] Monocytes (Bld) [#/Vol] 0.6 10*3/uL Normal 0.0-0.8 [facility] Comment on above: Performed By: #### B MP3M, MG3, HEMDF #### [facility] [address] [place] [address] Monocytes/100 WBC (Bld) 4.6 % Normal 2.0-10.[address] [facility] Comment on above: Performed By: #### B MP3M, MG3, HEMDF #### [facility] [address] [place] [address] Platelet mean volume (Bld) [Entitic vol] 7.8 fL Normal 7.4-12.4 [facility] Comment on above: Result Comment: MPV is a calculated measurement using platelet volume ratio. Performed By: #### B MP3M, MG3, HEMDF #### [facility] [address] [place] [address] Platelets (Bld) [#/Vol] 500 10*3/uL High 140-440 [facility] Comment on above: Performed By: #### B MP3M, MG3, HEMDF #### [facility] [address] [place] [address] RBC (Bld) [#/Vol] 3.97 10*6/uL Normal 3.80-5.20 [facility] Comment on above: Performed By: #### B MP3M, MG3, HEMDF #### [facility] [address] [place] [address] WBC (Bld) [#/Vol] 12.3 10*3/uL High 3.6-10.7 [facility] Comment on above: Performed By: #### B MP3M, MG3, HEMDF #### [facility] [address] [place] [address] Magnesiumon 04-18-2022 Magnesium [Mass/Vol] 2.1 mg/dL Normal 1.6-2.3 [facility] Comment on above: Performed By: #### B MP3M, MG3, HEMDF #### [facility] [address] [place] [address] Magnesium [Mass/Vol] 2.1 mg/dL 1.6 - 2 .3 mg/dL [facility] Work Phone: Test Performed by [facility], [facility] [address] [place], [place] [address] [facility] LAB [facility] Work Phone: Basic Metabolic Panelon - Calcium [Mass/Vol] 8.7 mg/dL Normal 8.4-10.4 [facility] Comment on above: Performed By: #### M DIFF, MG3, HEMDF, BMP3M #### [facility] [address] [place] [address] Anion gap [Moles/Vol] 4 mmol/L Normal 3-13 [facility] Comment on above: Performed By: #### M DIFF, MG3, HEMDF, BMP3M #### [facility] [address] [place] [address] CO2 [Moles/Vol] 30 mmol/L Normal 22-30 [facility] Comment on above: Performed By: #### M DIFF, MG3, HEMDF, BMP3M #### [facility] [address] [place] [address] Creatinine [Mass/Vol] 0.63 mg/dL Normal 0.52-1.25 [facility] Comment on above: Performed By: #### M DIFF, MG3, HEMDF, BMP3M #### [facility] [address] [place] [address] GFR/1.73 sq M.predicted among blacks MDRD (S/P/Bld) [Vol rate/Area] mL/min/{1.73_m2} Normal >60 [facility] Comment on above: Performed By: #### M DIFF, MG3, HEMDF, BMP3M #### [facility] [address] [place] [address] GFR/1.73 sq M.predicted among non-blacks MDRD (S/P/Bld) [Vol rate/Area] 89.1 mL/min/{1.73_m2} Normal >60 [facility] Comment on above: Result Comment: KDIG [...] #### M DIFF, MG3, HEMDF, BMP3M #### [facility] [address] [place] [address] Glucose [Mass/Vol] 92 mg/dL Normal 70-100 [facility] Comment on above: Performed By: #### M DIFF, MG3, HEMDF, BMP3M #### [facility] [address] [place] [address] Urea nitrogen [Mass/Vol] 10 mg/dL Normal 9-20 [facility] Comment on above: Performed By: #### M DIFF, MG3, HEMDF, BMP3M #### [facility] [address] [place] [address] Chloride [Moles/Vol] 106 mmol/L Normal 98-107 [facility] Comment on above: Performed By: #### M DIFF, MG3, HEMDF, BMP3M #### [facility] [address] [place] [address] Potassium [Moles/Vol] 3.5 mmol/L Normal 3.5-5.1 [facility] Comment on above: Performed By: #### M DIFF, MG3, HEMDF, BMP3M #### [facility] [address] [place] [address] Sodium [Moles/Vol] 140 mmol/L Normal 135-145 [facility] Comment on above: Performed By: #### M DIFF, MG3, HEMDF, BMP3M #### [facility] [address] [place] [address] Basic Metabolic Panel w/ Ref taiwo to MGon 04-17-2022 Anion gap [Moles/Vol] 4 mmol/L 3 - 13 mmol/L [facility] Work Phone: Calcium [Mass/Vol] 8.7 mg/dL 8.4 - 10. 4 mg/dL [facility] Work Phone: Chloride [Moles/Vol] 106 mmol/L 98 - 10 7 mmol/L [employer] Work Phone: CO2 [Moles/Vol] 30 mmol/L 22 - 30 mmol/L [employer] Work Phone: Creatinine [Mass/Vol] 0.63 mg/dL 0.52 - 1.25 mg/dL [employer] Work Phone: eGFR mL/min 60 - P INF mL/min [facility] Work Phone: EGFR IF NonAfrican [place] 89.1 mL/min 60 - PINF mL/min [employer] Work Phone: Comment on above: KDIGO guidelines [...] [Mass/Vol] 92 mg/dL 70 - 100 mg/dL [employer] Work Phone: Potassium [Moles/Vol] 3.5 mmol/L 3.5 - 5.1 mmol/L [employer] Work Phone: Sodium [Moles/Vol] 140 mmol/L 135 - 145 mmol/L [employer] Work Phone: Urea nitrogen (BldV) [Mass/Vol] 10 mg/dL 9 - 20 mg/dL [employer] Work Phone: CBC with Auto Differentialon 04-17-2022 Hematocrit (Bld) [Volume fraction] 34.1 % Low 35 - 47 % [facility] Work Phone: Hemoglobin (Bld) [Mass/Vol] 11.2 g/dL Low 11.7 - 16 g/dL [facility] Work Phone: Interpretation and review of laboratory results Abnormal [facility] Work Phone: MCH (RBC) [Entitic mass] 30.2 pg 26 - 34 pg [facility] Work Phone: MCHC (RBC) [Mass/Vol] 32.9 % 32 - 36 % [facility] Work Phone: MCV (RBC) [Entitic vol] 91.7 fL 79 - [address] [facility] Work Phone: Platelet distribution width (Bld) [Ratio] 15.5 % High 11.5 - 14.5 % [facility] Work Phone: Platelet mean volume (Bld) [Entitic vol] 7.8 fL 7.4 - 12.4 fL [facility] Work Phone: Comment on above: MPV is a calculated measurement using platelet volume ratio. Platelets (Bld) [#/Vol] 438 10*3/uL 140 - 440 10*3/uL [facility] Work Phone: RBC (Bld) [#/Vol] 3.72 10*6/uL Low 3.8 - 5.2 10*6/uL [facility] Work Phone: WBC (Bld) [#/Vol] 14.3 10*3/uL High 3.6 - 10.7 10*3/uL [facility] Work Phone: CULTURE BLOOD (Two)on 2021 Microscopic examination of blood, culture CULTURE BLOOD (Two) --> Status: F No growth at 5 days. Normal [employer] Comment on above: Performed By: #### M DIFF, BMP3M, HEMDF #### [employer] [address] [place] [address] Culture, Blood 2on 2 Blood Culture, Routine No growth at 5 days. [employer] Work Phone: Test Performed by [facility], [address] [place] [address], [place] [address] [facility] LAB [facility] Work Phone: Hemogram w/ Autodiffon 04-17 Erythrocyte distribution width (RBC) [Ratio] 15.5 % High 11.5-14.5 [facility] Comment on above: Performed By: #### M DIFF, MG3, HEMDF, BMP3M #### [facility] [address] [place] [address] Hematocrit (Bld) [Volume fraction] 34.1 % Low 35.0-47.0 [facility] Comment on above: Performed By: #### M DIFF, MG3, HEMDF, BMP3M #### [facility] [address] [place] [address] Hemoglobin (Bld) [Mass/Vol] 11.2 g/dL Low 11.7-16.0 [facility] Comment on above: Performed By: #### M DIFF, MG3, HEMDF, BMP3M #### [facility] [address] [place] [address] MCH (RBC) [Entitic mass] 30.2 pg Normal 26.0-34.0 [facility] Comment on above: Performed By: #### M DIFF, MG3, HEMDF, BMP3M #### [facility] [address] [place] [address] MCHC 32.9 % Normal 32.0-36.0 [facility] Comment on above: Performed By: #### M DIFF, MG3, HEMDF, BMP3M #### [facility] [address] [place] [address] MCV (RBC) [Entitic vol] 91.7 fL Normal 79.0-98.[address] [facility] Comment on above: Performed By: #### M DIFF, MG3, HEMDF, BMP3M #### [facility] [address] [place] [address] Platelet mean volume (Bld) [Entitic vol] 7.8 fL Normal 7.4-12.4 [facility] Comment on above: Result Comment: MPV is a calculated measurement using platelet volume ratio. Performed By: #### M DIFF, MG3, HEMDF, BMP3M #### [facility] [address] [place] [address] Platelets (Bld) [#/Vol] 438 10*3/uL Normal 140-440 [facility] Comment on above: Performed By: #### M DIFF, MG3, HEMDF, BMP3M #### [facility] [address] [place] [address] RBC (Bld) [#/Vol] 3.72 10*6/uL Low 3.80-5.20 [facility] Comment on above: Performed By: #### M DIFF, MG3, HEMDF, BMP3M #### [facility] [address] [place] [address] WBC (Bld) [#/Vol] 14.3 10*3/uL High 3.6-10.7 [facility] Comment on above: Performed By: #### M DIFF, MG3, HEMDF, BMP3M #### [facility] [address] [place] [address] Magnesiumon 04-17-2022 Magnesium [Mass/Vol] 2.1 mg/dL Normal 1.6-2.3 [facility] Comment on above: Performed By: #### M DIFF, MG3, HEMDF, BMP3M #### [facility] [address] [place] [address] Magnesium [Mass/Vol] 2.1 mg/dL 1.6 - 2 .3 mg/dL [facility] Work Phone: Test Performed by [facility], [facility] [address] [place], [place] [address] [facility] LAB [facility] Work Phone: Manual Diffon 04-17-2022 Abs Eosin Cnt 0.1 10*3/uL Normal 0.0-0.5 [facility] Comment on above: Performed By: #### M DIFF, MG3, HEMDF, BMP3M #### [facility] [address] [place] [address] Abs Lymph Cnt 3.3 10*3/uL Normal 1.1-4.5 [facility] Comment on above: Performed By: #### M DIFF, MG3, HEMDF, BMP3M #### [facility] [address] [place] [address] Abs Monocyte Cnt 0.9 10*3/uL Normal 0.2-1.1 [facility] Comment on above: Performed By: #### M DIFF, MG3, HEMDF, BMP3M #### [facility] [address] [place] [address] Abs Neutrophile Cnt 10.0 10*3/uL High 2.2-8.2 [facility] Comment on above: Performed By: #### M DIFF, MG3, HEMDF, BMP3M #### [facility] [address] [place] [address] Anisocytosis Slight Normal [facility] Comment on above: Performed By: #### M DIFF, MG3, HEMDF, BMP3M #### [facility] [address] [place] [address] Bands 1 % Normal 0-3 [facility] Comment on above: Performed By: #### M DIFF, MG3, HEMDF, BMP3M #### [facility] [address] [place] [address] Eosinophils 1 % Normal 1-6 [facility] Comment on above: Performed By: #### M DIFF, MG3, HEMDF, BMP3M #### [facility] [address] [place] [address] Lymphocytes 23 % Normal 20-40 [facility] Comment on above: Performed By: #### M DIFF, MG3, HEMDF, BMP3M #### [facility] [address] [place] [address] Monocytes 6 % Normal 2-10 [facility] Comment on above: Performed By: #### M DIFF, MG3, HEMDF, BMP3M #### [facility] [address] [place] [address] Ovalocytes Slight Normal [facility] Comment on above: Performed By: #### M DIFF, MG3, HEMDF, BMP3M #### [facility] [address] [place] [address] Poikilocytosis Slight Normal [facility] Comment on above: Performed By: #### M DIFF, MG3, HEMDF, BMP3M #### [facility] [address] [place] [address] [facility] Comment on above: Performed By: #### M DIFF, MG3, HEMDF, BMP3M #### [facility] [address] [place] [address] RBC Morphology ABNORMAL Normal [facility] Comment on above: Performed By: #### M DIFF, MG3, HEMDF, BMP3M #### [facility] [address] [place] [address] Seg Neutrophils 69 % Normal 40-[address] [facility] Comment on above: Performed By: #### M DIFF, MG3, HEMDF, BMP3M #### [facility] [address] [place] [address] Target Cells Slight Normal [facility] Comment on above: Performed By: #### M DIFF, MG3, HEMDF, BMP3M #### [facility] [address] [place] [address] Abs Baso Cnt 0.0 10*3/uL Normal 0.0-0.2 [facility] Comment on above: Performed By: #### M DIFF, MG3, HEMDF, BMP3M #### [facility] [address] [place] [address] Basophils 0 % Normal 0-2 [facility] Comment on above: Performed By: #### M DIFF, MG3, HEMDF, BMP3M #### [facility] [address] [place] [address] Cells counted [address] [facility] Comment on above: Performed By: #### M DIFF, MG3, HEMDF, BMP3M #### [facility] [address] [place] [address] Manual Differentialon 2021 Absolute Baso # 0.0 10*3/uL 0 - 0.2 10*3/uL [facility] Work Phone: Absolute Eos # 0.1 10*3/uL 0 - 0.5 10*3/uL [facility] Work Phone: Absolute Lymph # 3.3 10*3/uL 1.1 - 4.5 10*3/uL [facility] Work Phone: Absolute [place] # 0.9 10*3/uL 0.2 - 1.1 10*3/uL [facility] Work Phone: Absolute Neut # 10.0 10*3/uL High 2.2 - 8.2 10*3/uL [facility] Work Phone: Anisocytosis Slight [facility] Work Phone: Bands 1 % 0 - 3 % [facility] Work Phone: Basophils/100 WBC (Bld) 0 % 0 - 2 % [facility] Work Phone: [phone] Eosinophils/100 WBC (Bld) 1 % 1 - 6 % [facility] Work Phone: Interpretation and review of laboratory results Abnormal [facility] Work Phone: [phone] Lymphocytes/100 WBC (Bld) 23 % 20 - 40 % [facility] Work Phone: Monocytes/100 WBC (Bld) 6 % 2 - 10 % [facility] Work Phone: [phone] Ovalocytes Slight [facility] Work Phone: [phone] Poikilocytes Slight [facility] Work Phone: [phone] Polychromasia Slight [facility] Work Phone: RBC (Bld) [#/Vol] ABNORMAL [facility] Work Phone: Seg Neutrophils 69 % 40 - 80 % [facility] Work Phone: Target Cells Slight [facility] Work Phone: TOTAL CELLS COUNTED 100 [facility] Work Phone: Test Performed by [employer] [facility], [address] [place], [place] [id number] [place] [address] LAB [facility] Work Phone: No Panel Informationon 04-17 Test Performed by [facility], [address] [place] [address] [facility] Work Phone: Basic Metabolic Panelon 04-05 Anion gap [Moles/Vol] 8 mmol/L Normal 3-13 [facility] Comment on above: Performed By: #### M DIFF, BMP3M, HEMDF #### [facility] [address] [place] [address] Calcium [Mass/Vol] 8.9 mg/dL Normal 8.4-10.4 [facility] Comment on above: Performed By: #### M DIFF, BMP3M, HEMDF #### [facility] [address] [place] [address] CO2 [Moles/Vol] 23 mmol/L Normal 22-30 [facility] Comment on above: Performed By: #### M DIFF, BMP3M, HEMDF #### [facility] [address] [place] [address] Glucose [Mass/Vol] 95 mg/dL Normal 70-100 [facility] Comment on above: Performed By: #### M DIFF, BMP3M, HEMDF #### [facility] [address] [place] [address] Urea nitrogen [Mass/Vol] 13 mg/dL Normal 9-20 [facility] Comment on above: Performed By: #### M DIFF, BMP3M, HEMDF #### [facility] [address] [place] [address] Creatinine [Mass/Vol] 0.70 mg/dL Normal 0.52-1.25 [facility] Comment on above: Performed By: #### M DIFF, BMP3M, HEMDF #### [facility] [address] [place] [address] GFR/1.73 sq M.predicted among blacks MDRD (S/P/Bld) [Vol rate/Area] mL/min/{1.73_m2} Normal >60 [facility] Comment on above: Performed By: #### M DIFF, BMP3M, HEMDF #### [facility] [address] [place] [address] GFR/1.73 sq M.predicted among non-blacks MDRD (S/P/Bld) [Vol rate/Area] 86.1 mL/min/{1.73_m2} Normal >60 [facility] Comment on above: Result Comment: KDIG [...] By: #### M DIFF, BMP3M, HEMDF #### [facility] [address] [place] [address] Potassium [Moles/Vol] 3.7 mmol/L Normal 3.5-5.1 [facility] Comment on above: Performed By: #### M DIFF, BMP3M, HEMDF #### [facility] [address] [place] [address] Sodium [Moles/Vol] 141 mmol/L Normal 135-145 [facility] Comment on above: Performed By: #### M DIFF, BMP3M, HEMDF #### [facility] [address] [place] [address] Chloride [Moles/Vol] 111 mmol/L High 98-107 [facility] Comment on above: Performed By: #### M DIFF, BMP3M, HEMDF #### [facility] [address] [place] [address] Anion gap [Moles/Vol] 8 mmol/L 3 - 13 mmol/L [facility] Calcium [Mass/Vol] 8.9 mg/dL 8.4 - 10. 4 mg/dL [facility] Chloride [Moles/Vol] 111 mmol/L High 98 - 10 7 mmol/L [facility] CO2 [Moles/Vol] 23 mmol/L 22 - 30 mmol/L [facility] Creatinine [Mass/Vol] 0.7 mg/dL 0.52 - 1.25 mg/dL [facility] eGFR mL/min 60 - P INF mL/min [facility] EGFR IF NonAfrican Palauan 86.1 mL/min 60 - PINF mL/min [facility] [...] [Mass/Vol] 95 mg/dL 70 - 100 mg/dL [facility] Interpretation and review of laboratory results Abnormal [facility] Potassium [Moles/Vol] 3.7 mmol/L 3.5 - 5.1 mmol/L [facility] Sodium [Moles/Vol] 141 mmol/L 135 - 145 mmol/L [facility] Urea nitrogen (BldV) [Mass/Vol] 13 mg/dL 9 - 20 mg/dL [facility] Test Performed by [facility], [address] [place], [place] [id number] [place] [address] LAB [facility] CBC with Auto Differentialon 04-16-2022 Absolute Baso [...] [Mass/Vol] 12.0 g/dL 11.7 - 16 g/dL [facility] Interpretation and review of laboratory results [...] 14.2 10*3/uL High 3.6 - 10.7 10*3/uL [facility] Test Performed by [facility] [employer] [facility], [address], [place], [place] [address] [facility] LAB [facility] Hemogram w/ Autodiffon 04-16 Abs Baso Cnt 0.2 10*3/uL Normal 0.0-0.2 [facility] Comment on above: Performed By: #### M DIFF, BMP3M, HEMDF #### [facility] [address] [place] [address] Abs Neutrophile Cnt 9.0 10*3/uL High 1.8-7.0 [facility] Comment on above: Performed By: #### M DIFF, BMP3M, HEMDF #### [facility] [address] [place] [address] Basophils/100 WBC (Bld) 1.1 % Normal 0.0-2.0 [facility] Comment on above: Performed By: #### M DIFF, BMP3M, HEMDF #### [facility] [address] [place] [address] Eosinophils (Bld) [#/Vol] 0.4 10*3/uL Normal 0.0-0.5 [facility] Comment on above: Performed By: #### M DIFF, BMP3M, HEMDF #### [facility] [address] [place] [address] Eosinophils/100 WBC (Bld) 2.5 % Normal 1.0-6.0 [facility] Comment on above: Performed By: #### M DIFF, BMP3M, HEMDF #### [facility] [address] [place] [address] Erythrocyte distribution width (RBC) [Ratio] 15.7 % High 11.5-14.5 [facility] Comment on above: Performed By: #### M DIFF, BMP3M, HEMDF #### [facility] [address] [place] [address] Granulocytes/100 WBC (Bld) 63.2 % Normal 40.0-80.0 [facility] Comment on above: Performed By: #### M DIFF, BMP3M, HEMDF #### [facility] [address] [place] [address] Hematocrit (Bld) [Volume fraction] 36.4 % Normal 35.0-47.0 [facility] Comment on above: Performed By: #### M DIFF, BMP3M, HEMDF #### [facility] [address] [place] [address] Hemoglobin (Bld) [Mass/Vol] 12.0 g/dL Normal 11.7-16.0 [facility] Comment on above: Performed By: #### M DIFF, BMP3M, HEMDF #### [facility] [address] [place] [address] Lymphocytes (Bld) [#/Vol] 3.7 10*3/uL Normal 1.0-4.3 [facility] Comment on above: Performed By: #### M DIFF, BMP3M, HEMDF #### [facility] [address] [place] [address] Lymphocytes/100 WBC (Bld) 26.2 % Normal 20.0-40.0 [facility] Comment on above: Performed By: #### M DIFF, BMP3M, HEMDF #### [facility] [address] [place] [address] MCH (RBC) [Entitic mass] 30.0 pg Normal 26.0-34.0 [facility] Comment on above: Performed By: #### M DIFF, BMP3M, HEMDF #### [facility] [address] [place] [address] MCHC 32.8 % Normal 32.0-36.0 [facility] Comment on above: Performed By: #### M DIFF, BMP3M, HEMDF #### [facility] [address] [place] [address] MCV (RBC) [Entitic vol] 91.4 fL Normal 79.0-98.[address] [facility] Comment on above: Performed By: #### M DIFF, BMP3M, HEMDF #### [facility] [address] [place] [address] Monocytes (Bld) [#/Vol] 1.0 10*3/uL High 0.0-0.8 [facility] Comment on above: Performed By: #### M DIFF, BMP3M, HEMDF #### [facility] [address] [place] [address] Monocytes/100 WBC (Bld) 7.0 % Normal 2.0-10.[address] [facility] Comment on above: Performed By: #### M DIFF, BMP3M, HEMDF #### [facility] [address] [place] [address] Platelet mean volume (Bld) [Entitic vol] 8.0 fL Normal 7.4-12.4 [facility] Comment on above: Result Comment: MPV is a calculated measurement using platelet volume ratio. Performed By: #### M DIFF, BMP3M, HEMDF #### [facility] [address] [place] [address] Platelets (Bld) [#/Vol] 410 10*3/uL Normal 140-440 [facility] Comment on above: Performed By: #### M DIFF, BMP3M, HEMDF #### [facility] [address] [place] [address] RBC (Bld) [#/Vol] 3.98 10*6/uL Normal 3.80-5.20 [facility] Comment on above: Performed By: #### M DIFF, BMP3M, HEMDF #### [facility] [address] [place] [address] WBC (Bld) [#/Vol] 14.2 10*3/uL High 3.6-10.7 [facility] Comment on above: Performed By: #### M DIFF, BMP3M, HEMDF #### [facility] [address] [place] [address] Basic Metabolic Panelon - Calcium [Mass/Vol] 8.8 mg/dL Normal 8.4-10.4 [facility] Comment on above: Performed By: #### M DIFF, BMP3M, HEMDF #### [facility] [address] [place] [address] Glucose [Mass/Vol] 105 mg/dL High 70-100 [facility] Comment on above: Performed By: #### M DIFF, BMP3M, HEMDF #### [facility] [address] [place] [address] Urea nitrogen [Mass/Vol] 16 mg/dL Normal 9-20 [facility] Comment on above: Performed By: #### M DIFF, BMP3M, HEMDF #### [facility] [address] [place] [address] Anion gap [Moles/Vol] 3 mmol/L Normal 3-13 [facility] Comment on above: Performed By: #### M DIFF, BMP3M, HEMDF #### [facility] [address] [place] [address] CO2 [Moles/Vol] 28 mmol/L Normal 22-[address] [facility] Comment on above: Performed By: #### M DIFF, BMP3M, HEMDF #### [facility] [address] [place] [address] Creatinine [Mass/Vol] 0.69 mg/dL Normal 0.52-1.25 [facility] Comment on above: Performed By: #### M DIFF, BMP3M, HEMDF #### [facility] [address] [place] [address] GFR/1.73 sq M.predicted among blacks MDRD (S/P/Bld) [Vol rate/Area] mL/min/{1.73_m2} Normal >60 [facility] Comment on above: Performed By: #### M DIFF, BMP3M, HEMDF #### [facility] [address] [place] [address] GFR/1.73 sq M.predicted among non-blacks MDRD (S/P/Bld) [Vol rate/Area] 86.5 mL/min/{1.73_m2} Normal >60 [facility] Comment on above: Result Comment: KDIG [...] By: #### M DIFF, BMP3M, HEMDF #### [facility] [address] [place] [address] Chloride [Moles/Vol] 111 mmol/L High 98-107 [facility] Comment on above: Performed By: #### M DIFF, BMP3M, HEMDF #### [facility] [address] [place] [address] Potassium [Moles/Vol] 3.8 mmol/L Normal 3.5-5.1 [facility] Comment on above: Performed By: #### M DIFF, BMP3M, HEMDF #### [facility] [address] [place] [address] Sodium [Moles/Vol] 142 mmol/L Normal 135-145 [facility] Comment on above: Performed By: #### M DIFF, BMP3M, HEMDF #### [facility] [address] [place] [address] Anion gap [Moles/Vol] 3 mmol/L 3 - 13 mmol/L [facility] Calcium [Mass/Vol] 8.8 mg/dL 8.4 - 10. 4 mg/dL [facility] Chloride [Moles/Vol] 111 mmol/L High 98 - 10 7 mmol/L [facility] CO2 [Moles/Vol] 28 mmol/L 22 - 30 mmol/L [facility] Creatinine [Mass/Vol] 0.69 mg/dL 0.52 - 1.25 mg/dL [facility] eGFR mL/min 60 - P INF mL/min [facility] EGFR IF NonAfrican Palauan 86.5 mL/min 60 - PINF mL/min [facility] Comment on above: KDIGO guidelines pro vide [...] - 20 mg/dL [facility] Test Performed by [facility], [address] [place] [id number] [place] [address] LAB [facility] CULTURE BLOODon 04-15-2022 Microscopic examination of blood, culture CULTURE BLOOD --> Status: F Staphylococcus epidermidis DETECTED; mecA/C DETECTED. NOTE: This organism was detected by PCR but was not isolated using traditional culture methods. Presumptive identification performed using Gamador PCR methodology; confirmatory identification to follow. _ The [employer] BCID2 PCR Panel can detect the following [...] traditional culture methods. Presumptive identification performed using [employer] PCR methodology; confirmatory identification to follow. _ The [employer] BCID2 PCR Panel can detect the following [...] be positive with the same organism. Normal [facility] Comment on above: Performed By: #### M DIFF, BMP3M, HEMDF #### [facility] [address] [place] [address] Culture, Bloodon 04-15-2022 Blood Culture, Routine Staphylococcus epidermidis DETECTED; mecA/C DETECTED. NOTE: This organism was detected by PCR but was not isolated using traditional culture methods. Presumptive identification performed using Gamador PCR methodology; confirmatory identification to follow. _ The [employer] BCID2 PCR Panel can detect the following [...] KPC, NDM, OXA-48-like, VIM, and mcr-1. Abnormal [facility] Work Phone: Blood Culture, Routine Staphylococcus hominis Abnormal [facility] Work Phone: Blood Culture, Routine Isolated: Contamination likely unless additional blood culture sets are found to be positive with the same organism. [employer] Work Phone: Interpretation and review of laboratory results Abnormal [facility] Work Phone: Test Performed by [facility], [address] [place] [id number] [facility] LAB [facility] Work Phone: Basic Metabolic Panelon 09-1 0-2021 Anion gap [Moles/Vol] 5 mmol/L Normal 3-13 [facility] Comment on above: Order Comment: Sligh t Hemolysis. Performed By: #### M DIFF, BMP3M, HEMDF #### [facility] [address] [place] [address] Calcium [Mass/Vol] 8.1 mg/dL Low 8.4-10.4 [facility] Comment on above: Order Comment: Sligh t Hemolysis. Performed By: #### M DIFF, BMP3M, HEMDF #### [facility] [address] [place] [address] CO2 [Moles/Vol] 24 mmol/L Normal 22-[address] [facility] Comment on above: Order Comment: Sligh t Hemolysis. Performed By: #### M DIFF, BMP3M, HEMDF #### [facility] [address] [address] Glucose [Mass/Vol] 98 mg/dL Normal 70-100 [facility] Comment on above: Order Comment: Sligh t Hemolysis. Performed By: #### M DIFF, BMP3M, HEMDF #### [facility] [address] [place] [address] Urea nitrogen [Mass/Vol] 20 mg/dL Normal 9-20 [facility] Comment on above: Order Comment: Sligh t Hemolysis. Performed By: #### M DIFF, BMP3M, HEMDF #### [facility] [address] [place] [address] Creatinine [Mass/Vol] 0.67 mg/dL Normal 0.52-1.25 [facility] Comment on above: Order Comment: Sligh t Hemolysis. Performed By: #### M DIFF, BMP3M, HEMDF #### [facility] [address] [place] [address] GFR/1.73 sq M.predicted among blacks MDRD (S/P/Bld) [Vol rate/Area] mL/min/{1.73_m2} Normal >60 [facility] Comment on above: Order Comment: Sligh t Hemolysis. Performed By: #### M DIFF, BMP3M, HEMDF #### [facility] [address] [place] [address] GFR/1.73 sq M.predicted among non-blacks MDRD (S/P/Bld) [Vol rate/Area] 87.3 mL/min/{1.73_m2} Normal >60 [facility] Comment on above: Order Comment: Sligh [...] By: #### M DIFF, BMP3M, HEMDF #### [facility] [address] [place] [address] Potassium [Moles/Vol] 3.8 mmol/L Normal 3.5-5.1 [facility] Comment on above: Order Comment: Sligh t Hemolysis. Performed By: #### M DIFF, BMP3M, HEMDF #### [facility] [address] [place] [address] Chloride [Moles/Vol] 117 mmol/L High 98-107 [facility] Comment on above: Order Comment: Sligh t Hemolysis. Performed By: #### M DIFF, BMP3M, HEMDF #### [facility] [address] [place] [address] Sodium [Moles/Vol] 146 mmol/L High 135-145 [facility] Comment on above: Order Comment: Sligh t Hemolysis. Performed By: #### M DIFF, BMP3M, HEMDF #### [facility] [address] [place] [address] Basic Metabolic Panel w/ Ref taiwo to MGon 04-14-2022 Anion gap [Moles/Vol] 5 mmol/L 3 - 13 mmol/L [facility] Work Phone: Calcium [Mass/Vol] 8.1 mg/dL Low 8.4 - 10. 4 mg/dL [facility] Work Phone: Chloride [Moles/Vol] 117 mmol/L High 98 - 10 7 mmol/L [facility] Work Phone: CO2 [Moles/Vol] 24 mmol/L 22 - 30 mmol/L [facility] Work Phone: Creatinine [Mass/Vol] 0.67 mg/dL 0.52 - 1.25 mg/dL [facility] Work Phone: eGFR mL/min 60 - P INF mL/min [facility] Work Phone: EGFR IF NonAfrican Palauan 87.3 mL/min 60 - PINF mL/min [facility] [...] [Mass/Vol] 98 mg/dL 70 - 100 mg/dL [facility] Work Phone: Interpretation and review of laboratory results Abnormal [facility] Work Phone: Potassium [Moles/Vol] 3.8 mmol/L 3.5 - 5.1 mmol/L [facility] Work Phone: Sodium [Moles/Vol] 146 mmol/L High 135 - 145 mmol/L [facility] Work Phone: Urea nitrogen (BldV) [Mass/Vol] 20 mg/dL 9 - 20 mg/dL [facility] Work Phone: Test Performed by [facility] [employer] [facility], [address] [place] [address] Slight Hemolysis. [facility] LAB [facility] Work Phone: CBC with Auto Differentialon 04-14-2022 Hematocrit (Bld) [Volume fraction] 32.2 % Low 35 - 47 % [facility] Work Phone: Hemoglobin (Bld) [Mass/Vol] 10.8 g/dL Low 11.7 - 16 g/dL [facility] Work Phone: Interpretation and review of laboratory results Abnormal [facility] Work Phone: MCH (RBC) [Entitic mass] 30.5 pg 26 - 34 pg [facility] Work Phone: MCHC (RBC) [Mass/Vol] 33.5 % 32 - 36 % [facility] Work Phone: MCV (RBC) [Entitic vol] 90.9 fL 79 - [address] [facility] Work Phone: Platelet distribution width (Bld) [Ratio] 15.4 % High 11.5 - 14.5 % [facility] Work Phone: Platelet mean volume (Bld) [Entitic vol] 8.7 fL 7.4 - 12.4 fL [facility] Work Phone: Comment on above: MPV is a calculated measurement using platelet volume ratio. Platelets (Bld) [#/Vol] 288 10*3/uL 140 - 440 10*3/uL [facility] Work Phone: RBC (Bld) [#/Vol] 3.55 10*6/uL Low 3.8 - 5.2 10*6/uL [facility] Work Phone: WBC (Bld) [#/Vol] 9.8 10*3/uL 3.6 - 10.7 10*3/uL [facility] Work Phone: Test Performed by [facility], [address] [place], [place], [place] [id number] [place] [address] LAB [facility] Work Phone: CULTURE BLOODon 04-14-2022 Microscopic examination of blood, culture 1 Organism Escherichia coli Isolated: For identification and/or sensitivity, refer to culture collected on: 04/10/22 @ 2058 ([id number]). Normal [facility] Comment on above: Performed By: #### M DIFF, BMP3M, HEMDF #### [facility] [address] [place] [address] CULTURE BLOOD (Two)on 2021 Microscopic examination of blood, culture CULTURE BLOOD (Two) --> Status: F Escherichia coli DETECTED. Presumptive identification performed using [employer] PCR methodology; confirmatory identification to follow. _ The [employer] BCID2 PCR Panel can detect the following [...] VIM, and mcr-1. Presumptive identification performed using Gamador PCR methodology; confirmatory identification to follow. _ The [employer] BCID2 PCR Panel can detect the following [...] 1 S Amikacin(GABINO) <= 2 S Normal [facility] Comment on above: Performed By: #### M DIFF, BMP3M, HEMDF #### [facility] [address] [place] [address] Culture, Bloodon 04-14-2022 Blood Culture, Routine Escherichia coli Abnormal [facility] Blood Culture, Routine Isolated: For identification and/or sensitivity, refer to culture collected on: 04/10/22 @ 2058 ([id number]). [facility] Interpretation and review of laboratory results Abnormal [facility] Test Performed by [facility], [address] [place], [place] [id number] [place] [address] LAB [facility] Culture, Blood 2on Blood Culture, Routine Escherichia coli DETECTED. Presumptive identification performed using Gamador PCR methodology; confirmatory identification to follow. _ The [employer] BCID2 PCR Panel can detect the following [...] KPC, NDM, OXA-48-like, VIM, and mcr-1. Abnormal [facility] Blood Culture, Routine Escherichia coli Abnormal [facility] Blood Culture, Routine Isolated: [facility] Interpretation and review of laboratory results Abnormal [facility] Test Performed by [address] [address] [facility] LAB [facility] Hemogram w/ Autodiffon 04-14 Erythrocyte distribution width (RBC) [Ratio] 15.4 % High 11.5-14.5 [facility] Comment on above: Performed By: #### M DIFF, BMP3M, HEMDF #### [facility] [address] [place] [address] Hematocrit (Bld) [Volume fraction] 32.2 % Low 35.0-47.0 [facility] Comment on above: Performed By: #### M DIFF, BMP3M, HEMDF #### [facility] [address] [facility] [address] Hemoglobin (Bld) [Mass/Vol] 10.8 g/dL Low 11.7-16.0 [facility] Comment on above: Performed By: #### M DIFF, BMP3M, HEMDF #### [facility] [address] [place] [address] MCH (RBC) [Entitic mass] 30.5 pg Normal 26.0-34.0 [facility] Comment on above: Performed By: #### M DIFF, BMP3M, HEMDF #### [facility] [address] [facility] [address] MCHC 33.5 % Normal 32.0-36.0 [facility] Comment on above: Performed By: #### M DIFF, BMP3M, HEMDF #### [facility] [address] [place] [address] MCV (RBC) [Entitic vol] 90.9 fL Normal 79.0-98.[address] [facility] Comment on above: Performed By: #### M DIFF, BMP3M, HEMDF #### [facility] [address] [place] [address] Platelet mean volume (Bld) [Entitic vol] 8.7 fL Normal 7.4-12.4 [facility] Comment on above: Result Comment: MPV is a calculated measurement using platelet volume ratio. Performed By: #### M DIFF, BMP3M, HEMDF #### [facility] [address] [place] [address] Platelets (Bld) [#/Vol] 288 10*3/uL Normal 140-440 [facility] Comment on above: Performed By: #### M DIFF, BMP3M, HEMDF #### [facility] [address] [place] [address] RBC (Bld) [#/Vol] 3.55 10*6/uL Low 3.80-5.20 [facility] Comment on above: Performed By: #### M DIFF, BMP3M, HEMDF #### [facility] [address] [place] [address] WBC (Bld) [#/Vol] 9.8 10*3/uL Normal 3.6-10.7 [facility] Comment on above: Performed By: #### M DIFF, BMP3M, HEMDF #### [facility] [address] [place] [address] Manual Diffon 04-14-2022 Abs Eosin Cnt 0.1 10*3/uL Normal 0.0-0.5 [facility] Comment on above: Performed By: #### M DIFF, BMP3M, HEMDF #### [facility] [address] [place] [address] Abs Lymph Cnt 0.6 10*3/uL Low 1.1-4.5 [facility] Comment on above: Performed By: #### M DIFF, BMP3M, HEMDF #### [facility] [address] [place] [address] Abs Monocyte Cnt 0.6 10*3/uL Normal 0.2-1.1 [facility] Comment on above: Performed By: #### M DIFF, BMP3M, HEMDF #### [facility] [address] [place] [address] Abs Neutrophile Cnt 8.1 10*3/uL Normal 2.2-8.2 [facility] Comment on above: Performed By: #### M DIFF, BMP3M, HEMDF #### [facility] [address] [place] [address] Anisocytosis Slight Normal [facility] Comment on above: Performed By: #### M DIFF, BMP3M, HEMDF #### [facility] [address] [place] [address] Bands 1 % Normal 0-3 [facility] Comment on above: Performed By: #### M DIFF, BMP3M, HEMDF #### [facility] [address] [place] [address] Eosinophils 1 % Normal 1-6 [facility] Comment on above: Performed By: #### M DIFF, BMP3M, HEMDF #### [facility] [address] [place] [address] Lymphocytes 6 % Low 20-40 [facility] Comment on above: Performed By: #### M DIFF, BMP3M, HEMDF #### [facility] [address] [place] [address] Monocytes 6 % Normal 2-10 [facility] Comment on above: Performed By: #### M DIFF, BMP3M, HEMDF #### [facility] [address] [place] [address] Myelocytes 4 % Abnormal <1 [facility] Comment on above: Performed By: #### M DIFF, BMP3M, HEMDF #### [facility] [address] [place] [address] [address] [facility] Comment on above: Performed By: #### M DIFF, BMP3M, HEMDF #### [facility] [address] [place] [address] RBC Morphology ABNORMAL Normal [facility] Comment on above: Performed By: #### M DIFF, BMP3M, HEMDF #### [facility] [address] [place] [address] Seg Neutrophils 82 % High 40-80 [facility] Comment on above: Performed By: #### M DIFF, BMP3M, HEMDF #### [facility] [facility] [address] [place] [address] Abs Baso Cnt 0.0 10*3/uL Normal 0.0-0.2 [facility] Comment on above: Performed By: #### M DIFF, BMP3M, HEMDF #### [facility] [address] [place] [address] Basophils 0 % Normal 0-2 [facility] Comment on above: Performed By: #### M DIFF, BMP3M, HEMDF #### [facility] [address] [place] [address] Cells counted [address] [facility] Comment on above: Performed By: #### M DIFF, BMP3M, HEMDF #### [facility] [address] [place] [address] Manual Differentialon 2021 Absolute Baso # 0.0 10*3/uL 0 - 0.2 10*3/uL [facility] Work Phone: Absolute Eos # 0.1 10*3/uL 0 - 0.5 10*3/uL [facility] Work Phone: Absolute Lymph # 0.6 10*3/uL Low 1.1 - 4.5 10*3/uL [facility] Work Phone: Absolute [place] # 0.6 10*3/uL 0.2 - 1.1 10*3/uL [...] Interpretation and review of laboratory results Abnormal [facility] Work Phone: Lymphocytes/100 WBC (Bld) 6 % Low 20 - 40 % [facility] Work Phone: Monocytes/100 WBC (Bld) 6 % 2 - 10 % S [facility] Work Phone: Myelocytes 4 % Abnormal NINF - 1 % [facility] Work Phone: Polychromasia Slight [facility] Work Phone: RBC (Bld) [#/Vol] ABNORMAL [facility] Work Phone: Seg Neutrophils 82 % High 40 - 80 % [facility] Work Phone: TOTAL CELLS COUNTED 100 [employer] Work Phone: Test Performed by [employer] [facility], [address] [place] [id number] [place] [address] LAB [facility] Work Phone: CULTURE URINEon 04-13-2022 CULTURE URINE [...] 1 S Amikacin(GABINO) <= 2 S Normal [facility] Comment on above: Performed By: #### M DIFF, BMP3M, HEMDF #### [facility] [address] [place] [address] Culture, Urineon 04-13-2022 Bacteria identified Cx Nom (U) Normal urogenital enriqueta present. Abnormal [facility] Bacteria identified Cx Nom (U) Escherichia coli Abnormal [facility] Bacteria identified Cx Nom (U) 50,000-90,000 CFU/ml [facility] Interpretation and review of laboratory results Abnormal [facility] Test Performed by [facility], [address] [place] [address], [place] [address] [facility] Basic Metabolic Panelon Calcium [Mass/Vol] 7.9 mg/dL Low 8.4-10.4 [facility] Comment on above: Performed By: #### M DIFF, MG3, HEMDF, BMP3M #### [facility] [address] [place] [address] Glucose [Mass/Vol] 112 mg/dL High 70-100 [facility] Comment on above: Performed By: #### M DIFF, MG3, HEMDF, BMP3M #### [facility] [address] [place] [address] Anion gap [Moles/Vol] 7 mmol/L Normal 3-13 [facility] Comment on above: Performed By: #### M DIFF, MG3, HEMDF, BMP3M #### [facility] [address] [place] [address] CO2 [Moles/Vol] 22 mmol/L Normal 22-[address] [facility] Comment on above: Performed By: #### M DIFF, MG3, HEMDF, BMP3M #### [facility] [address] [place] [address] Creatinine [Mass/Vol] 1.09 mg/dL Normal 0.52-1.25 [facility] Comment on above: Performed By: #### M DIFF, MG3, HEMDF, BMP3M #### [facility] [address] [place] [address] GFR/1.73 sq M.predicted among blacks MDRD (S/P/Bld) [Vol rate/Area] 58.4 mL/min/{1.73_m2} Abnormal >60 [facility] Comment on above: Performed By: #### M DIFF, MG3, HEMDF, BMP3M #### [facility] [address] [place] [address] GFR/1.73 sq M.predicted among non-blacks MDRD (S/P/Bld) [Vol rate/Area] 50.4 mL/min/{1.73_m2} Abnormal >60 [facility] Comment on above: Result Comment: KDIG [...] #### M DIFF, MG3, HEMDF, BMP3M #### [facility] [address] [place] [address] Urea nitrogen [Mass/Vol] 28 mg/dL High 9-20 [facility] Comment on above: Performed By: #### M DIFF, MG3, HEMDF, BMP3M #### [facility] [address] [place] [address] Chloride [Moles/Vol] 111 mmol/L High 98-107 [facility] Comment on above: Performed By: #### M DIFF, MG3, HEMDF, BMP3M #### [facility] [address] [place] [address] Potassium [Moles/Vol] 3.6 mmol/L Normal 3.5-5.1 [facility] Comment on above: Performed By: #### M DIFF, MG3, HEMDF, BMP3M #### [facility] [address] [place] [address] Sodium [Moles/Vol] 140 mmol/L Normal 135-145 [facility] Comment on above: Performed By: #### M DIFF, MG3, HEMDF, BMP3M #### [facility] [address] [place] [address] Basic Metabolic Panel w/ Ref taiwo to MGon 04-12-2022 Anion gap [Moles/Vol] 7 mmol/L 3 - 13 mmol/L [facility] Work Phone: Calcium [Mass/Vol] 7.9 mg/dL Low 8.4 - 10. 4 mg/dL [facility] Work Phone: Chloride [Moles/Vol] 111 mmol/L High 98 - 10 7 mmol/L [facility] Work Phone: CO2 [Moles/Vol] 22 mmol/L 22 - 30 mmol/L [facility] Work Phone: Creatinine [Mass/Vol] 1.09 mg/dL 0.52 - 1.25 mg/dL [facility] Work Phone: EGFR IF NonAfrican [place] 50.4 mL/min Abnormal 60 - PINF mL/min [facility] Work Phone: Comment on above: KDIGO [...] 58.4 mL/min/{1.73_m2} Abnormal 60 - PINF mL/min [employer] Work Phone: Glucose [Mass/Vol] 112 mg/dL High 70 - 100 mg/dL [employer] Work Phone: Interpretation and review of laboratory results Abnormal [facility] Work Phone: Potassium [Moles/Vol] 3.6 mmol/L 3.5 - 5.1 mmol/L [facility] Work Phone: Sodium [Moles/Vol] 140 mmol/L 135 - 145 mmol/L [facility] Work Phone: Urea nitrogen (BldV) [Mass/Vol] 28 mg/dL High 9 - 20 mg/dL [facility] Work Phone: Test Performed by [facility] [employer] [facility], [address] [place], [place] [id number] [place] [address] LAB [facility] Work Phone: CBC with Auto Differentialon 04-12-2022 Absolute Baso # 0.1 10*3/uL 0 - 0.2 10*3/uL [facility] Work Phone: Absolute Neut # 11.3 10*3/uL High 1.8 - 7 10*3/uL [employer] Work Phone: Basophils/100 WBC (Bld) 0.4 % 0 - 2 % S [facility] Work Phone: Eosinophils (Bld) [#/Vol] 0.1 10*3/uL 0 - 0.5 10*3/uL [facility] Work Phone: Eosinophils/100 WBC (Bld) 0.9 % Low 1 - 6 % [facility] Work Phone: Granulocytes/100 WBC (Bld) 78.9 % 40 - 80 % [facility] Work Phone: Hematocrit (Bld) [Volume fraction] 33.4 % Low 35 - 47 % [facility] Work Phone: Hemoglobin (Bld) [Mass/Vol] 10.9 g/dL Low 11.7 - 16 g/dL [facility] Work Phone: Interpretation and review of laboratory results Abnormal [facility] Work Phone: Lymphocytes (Bld) [#/Vol] 1.3 10*3/uL 1 - 4.3 10*3/uL [facility] Work Phone: Lymphocytes/100 WBC (Bld) 8.9 % Low 20 - 40 % [facility] Work Phone: MCH (RBC) [Entitic mass] 29.8 pg 26 - 34 pg [facility] Work Phone: MCHC (RBC) [Mass/Vol] 32.5 % 32 - 36 % [facility] Work Phone: MCV (RBC) [Entitic vol] 91.6 fL 79 - [address] [facility] Work Phone: Monocytes (Bld) [#/Vol] 1.6 10*3/uL High 0 - 0.8 10*3/uL [facility] Work Phone: Monocytes/100 WBC (Bld) 10.9 % High 2 - 10 % [facility] Work Phone: Platelet distribution width (Bld) [Ratio] 15.0 % High 11.5 - 14.5 % [facility] Work Phone: Platelet mean volume (Bld) [Entitic vol] 8.6 fL 7.4 - 12.4 fL [facility] Work Phone: Comment on above: MPV is a calculated measurement using platelet volume ratio. Platelets (Bld) [#/Vol] 174 10*3/uL 140 - 440 10*3/uL [employer] Work Phone: RBC (Bld) [#/Vol] 3.65 10*6/uL Low 3.8 - 5.2 10*6/uL [employer] Work Phone: WBC (Bld) [#/Vol] 14.3 10*3/uL High 3.6 - 10.7 10*3/uL [employer] Work Phone: Test Performed by [facility], [address] [place], [place] [id number] [place] [address] LAB [employer] Work Phone: Fluoroscopy modified barium swallow with videoon 04-12-2022 Patient Name: UBALDO ARANGO Fluoroscopy ACCESSION EXAM DATE/TIME PROCEDURE ORDERING PROVIDER [id number] 04/11/2022 12:45 EDT RF Swallowing Function PRICILA MARIE w/ Video CPT code 54577 Reason For Exam (RF Swallowing Function w/ [...] piriform sinuses. Pharyngeal Phase: Transient laryngeal penetration. [place]: Oral Phase: Premature pharyngeal spillage to valleculae. [...] NELSON Transcribed Date and Time: 04/12/2022 5:24 [facility] Amber Coelho MD - 04/12/2022 Patient Name[id number]oscopy ACCESSION EXAM DATE/TIME PROCEDURE ORDERING PROVIDER [id number] 04/11/2022 12:45 EDT RF Swallowing Function 58PRICILA ALVAREZ w/ Video CPT code 25593 Reason For Exam (RF Swallowing Function w/ [...] piriform sinuses. Pharyngeal Phase: Transient laryngeal penetration. [place]: Oral Phase: Premature pharyngeal spillage to valleculae. [...] NELSON Transcribed Date and Time: 04/12/2022 5:24 [facility] Work Phone: Fluoroscopy modified barium swallow with videoOrdered By: Amber Coelho on 04-12-2022 [facility] Work Phone: Hemogram w/ Autodiffon 04-12 Abs Baso Cnt 0.1 10*3/uL Normal 0.0-0.2 [facility] Comment on above: Performed By: #### M DIFF, MG3, HEMDF, BMP3M #### [facility] [address] [place] [address] Abs Neutrophile Cnt 11.3 10*3/uL High 1.8-7.0 [facility] Comment on above: Performed By: #### M DIFF, MG3, HEMDF, BMP3M #### [facility] [address] [place] [address] Basophils/100 WBC (Bld) 0.4 % Normal 0.0-2.[address] [facility] Comment on above: Performed By: #### M DIFF, MG3, HEMDF, BMP3M #### [facility] [address] [place] [address] Eosinophils (Bld) [#/Vol] 0.1 10*3/uL Normal 0.0-0.5 [facility] Comment on above: Performed By: #### M DIFF, MG3, HEMDF, BMP3M #### [facility] [address] [place] [address] Eosinophils/100 WBC (Bld) 0.9 % Low 1.0-6.0 [facility] Comment on above: Performed By: #### M DIFF, MG3, HEMDF, BMP3M #### [facility] [address] [place] [address] Erythrocyte distribution width (RBC) [Ratio] 15.0 % High 11.5-14.5 [facility] Comment on above: Performed By: #### M DIFF, MG3, HEMDF, BMP3M #### [facility] [address] [place] [address] Granulocytes/100 WBC (Bld) 78.9 % Normal 40.0-80.0 [facility] Comment on above: Performed By: #### M DIFF, MG3, HEMDF, BMP3M #### [facility] [address] [place] [address] Hematocrit (Bld) [Volume fraction] 33.4 % Low 35.0-47.0 [facility] Comment on above: Performed By: #### M DIFF, MG3, HEMDF, BMP3M #### [facility] [address] [place] [address] Hemoglobin (Bld) [Mass/Vol] 10.9 g/dL Low 11.7-16.0 [facility] Comment on above: Performed By: #### M DIFF, MG3, HEMDF, BMP3M #### [facility] [address] [place] [address] Lymphocytes (Bld) [#/Vol] 1.3 10*3/uL Normal 1.0-4.3 [facility] Comment on above: Performed By: #### M DIFF, MG3, HEMDF, BMP3M #### [facility] [address] [place] [address] Lymphocytes/100 WBC (Bld) 8.9 % Low 20.0-40.0 [facility] Comment on above: Performed By: #### M DIFF, MG3, HEMDF, BMP3M #### [facility] [address] [place] [address] MCH (RBC) [Entitic mass] 29.8 pg Normal 26.0-34.0 [facility] Comment on above: Performed By: #### M DIFF, MG3, HEMDF, BMP3M #### [facility] [address] [place] [address] MCHC 32.5 % Normal 32.0-36.0 [facility] Comment on above: Performed By: #### M DIFF, MG3, HEMDF, BMP3M #### [facility] [address] [place] [address] MCV (RBC) [Entitic vol] 91.6 fL Normal 79.0-98.0 [facility] Comment on above: Performed By: #### M DIFF, MG3, HEMDF, BMP3M #### [facility] [address] [place] [address] Monocytes (Bld) [#/Vol] 1.6 10*3/uL High 0.0-0.8 [facility] Comment on above: Performed By: #### M DIFF, MG3, HEMDF, BMP3M #### [facility] [address] [place] [address] Monocytes/100 WBC (Bld) 10.9 % High 2.0-10.[address] [facility] Comment on above: Performed By: #### M DIFF, MG3, HEMDF, BMP3M #### [facility] [address] [place] [address] Platelet mean volume (Bld) [Entitic vol] 8.6 fL Normal 7.4-12.4 [facility] Comment on above: Result Comment: MPV is a calculated measurement using platelet volume ratio. Performed By: #### M DIFF, MG3, HEMDF, BMP3M #### [facility] [address] [place] [address] Platelets (Bld) [#/Vol] 174 10*3/uL Normal 140-440 [facility] Comment on above: Performed By: #### M DIFF, MG3, HEMDF, BMP3M #### [facility] [address] [place] [address] RBC (Bld) [#/Vol] 3.65 10*6/uL Low 3.80-5.20 [facility] Comment on above: Performed By: #### M DIFF, MG3, HEMDF, BMP3M #### [facility] [address] [place] [address] WBC (Bld) [#/Vol] 14.3 10*3/uL High 3.6-10.7 [facility] Comment on above: Performed By: #### M DIFF, MG3, HEMDF, BMP3M #### [facility] [address] [place] [address] Procalcitoninon 04-12-2022 Procalcitonin 0.76 ng/mL High 0.00-0.09 [facility] Comment on above: Performed By: #### M DIFF, MG3, HEMDF, BMP3M #### [facility] [address] [place] [address] Interpretation See Below [facility] Work Phone: Comment on above: PCT <0.50 = Low risk of severe sepsis and/or septic shock. PCT >2.00 = High risk of severe sepsis and/or septic shock. Interpretation and review of laboratory results Abnormal [employer] Work Phone: Procalcitonin 0.76 ng/mL High 0 - 0.09 ng/mL [facility] Work Phone: Test Performed by [employer], [address] [place] [id number] [facility] [employer] Work Phone: RBC MORPHOLOGYon 04-12-2022 Anisocytosis Ql (Bld) Slight [facility] [place] Work Phone: Caroline Cells Slight [facility] Work Phone: Hypochromia Slight [facility] Work Phone: Ovalocytes Slight [facility] Work Phone: Polychromasia Slight [facility] Work Phone: RBC (Bld) [#/Vol] ABNORMAL [facility] Work Phone: Test Performed by [employer], [address] [place], [place] [address] [facility] Work Phone: RBC Morphologyon 04-12-2022 Anisocytosis Ql (Bld) Slight Normal [facility] [employer] [facility] Comment on above: Performed By: #### M DIFF, MG3, HEMDF, BMP3M #### [employer] [address] [place] [address] Theodore Cells Slight Normal [facility] [employer] [facility] Comment on above: Performed By: #### M DIFF, MG3, HEMDF, BMP3M #### [employer] [address] [place] [address] Hypochromia Slight Normal [facility] [employer] [facility] Comment on above: Performed By: #### M DIFF, MG3, HEMDF, BMP3M #### [employer] [facility] [address] [place] [address] Ovalocytes Slight Normal [facility] Comment on above: Performed By: #### M DIFF, MG3, HEMDF, BMP3M #### [facility] [address] [place] [address] Pol[address] Normal [facility] Comment on above: Performed By: #### M DIFF, MG3, HEMDF, BMP3M #### [facility] [address] [place] [address] RBC morphology finding Nom (Bld) ABNORMAL Normal [facility] Comment on above: Performed By: #### M DIFF, MG3, HEMDF, BMP3M #### [facility] [address] [place] [address] Vancomycinon 04-12-2022 Vancomycin 8.5 ug/mL Low 15.0-20.0 [facility] Comment on above: Result Comment: . Performed By: #### M DIFF, BMP3M, HEMDF #### [facility] [address] [place] [address] Vancomycin Level, Randomon 0 04-12-2022 Interpretation and review of laboratory results Abnormal [facility] Vancomycin 8.5 ug/mL Low 15 - 20 ug/mL [facility] Comment on above: . Test Performed by [facility], [address] [place], [place] [address] [place] [address] LAB [facility] Add On Lab Teston 04-11-2022 Add On Accepted [facility] Work Phone: Comment on above: Specimen available & acceptable for analysis. Test Performed by [facility], [address] [place], [place] [address] Added TROPN see [id number] [facility] 04/11/2022 15:35 [facility] Work Phone: Add On Accepted [facility] Comment on above: Specimen available & acceptable for analysis. Test Performed by [facility], [address] [place], [place] [id number] [place] [address] LAB [facility] Add on test from HISon 04-11 Add on test from HIS Accepted Normal [facility] Comment on above: Order Comment: Added TROPN see [id number] 04/11/2022 15:35 Result Comment: Spec imen available & acceptable for analysis. Performed By: #### M DIFF, BMP3M, HEMDF #### [facility] [address] [place] [address] Add on test from HIS Accepted Normal [facility] Comment on above: Result Comment: Spec imen available & acceptable for analysis. Performed By: #### M DIFF, BMP3M, HEMDF #### [facility] [address] [place] [address] Basic Metabolic Panelon 09-0 -2021 Anion gap [Moles/Vol] 6 mmol/L Normal 3-13 [facility] Comment on above: Performed By: #### M DIFF, MG3, HEMDF, BMP3M #### [facility] [address] [place] [address] Calcium [Mass/Vol] 7.7 mg/dL Low 8.4-10.4 [facility] Comment on above: Performed By: #### M DIFF, MG3, HEMDF, BMP3M #### [facility] [address] [place] [address] CO2 [Moles/Vol] 23 mmol/L Normal 22-30 [facility] Comment on above: Performed By: #### M DIFF, MG3, HEMDF, BMP3M #### [facility] [address] [place] [address] Glucose [Mass/Vol] 135 mg/dL High 70-100 [facility] Comment on above: Performed By: #### M DIFF, MG3, HEMDF, BMP3M #### [facility] [address] [place] [address] Urea nitrogen [Mass/Vol] 29 mg/dL High 9-20 [facility] Comment on above: Performed By: #### M DIFF, MG3, HEMDF, BMP3M #### [facility] [address] [place] [address] Creatinine [Mass/Vol] 1.34 mg/dL High 0.52-1.25 [facility] Comment on above: Performed By: #### M DIFF, MG3, HEMDF, BMP3M #### [facility] [address] [place] [address] GFR/1.73 sq M.predicted among blacks MDRD (S/P/Bld) [Vol rate/Area] 45.5 mL/min/{1.73_m2} Abnormal >60 [facility] Comment on above: Performed By: #### M DIFF, MG3, HEMDF, BMP3M #### [facility] [address] [place] [address] GFR/1.73 sq M.predicted among non-blacks MDRD (S/P/Bld) [Vol rate/Area] 39.3 mL/min/{1.73_m2} Abnormal >60 [facility] Comment on above: Result Comment: KDIG [...] #### M DIFF, MG3, HEMDF, BMP3M #### [facility] [address] [place] [address] Chloride [Moles/Vol] 107 mmol/L Normal 98-107 [facility] Comment on above: Performed By: #### M DIFF, MG3, HEMDF, BMP3M #### [facility] [address] [place] [address] Potassium [Moles/Vol] 3.3 mmol/L Low 3.5-5.1 [facility] Comment on above: Performed By: #### M DIFF, MG3, HEMDF, BMP3M #### [facility] [address] [place] [address] Sodium [Moles/Vol] 137 mmol/L Normal 135-145 [facility] Comment on above: Performed By: #### M DIFF, MG3, HEMDF, BMP3M #### [facility] [address] [place] [address] Basic Metabolic Panel w/ Ref taiwo to MGon 04-11-2022 Anion gap [Moles/Vol] 6 mmol/L 3 - 13 mmol/L [employer] Work Phone: Calcium [Mass/Vol] 7.7 mg/dL Low 8.4 - 10. 4 mg/dL [employer] Work Phone: Chloride [Moles/Vol] 107 mmol/L 98 - 10 7 mmol/L [employer] Work Phone: CO2 [Moles/Vol] 23 mmol/L 22 - 30 mmol/L [employer] Work Phone: Creatinine [Mass/Vol] 1.34 mg/dL High 0.52 - 1.25 mg/dL [employer] Work Phone: EGFR IF NonAfrican [place] 39.3 mL/min Abnormal 60 - PINF mL/min [employer] Work Phone: Comment on above: KDIGO guidelines [...] 135 mg/dL High 70 - 100 mg/dL [facility] Work Phone: Interpretation and review of laboratory results Abnormal [facility] Work Phone: Potassium [Moles/Vol] 3.3 mmol/L Low 3.5 - 5.1 mmol/L [facility] Work Phone: Sodium [Moles/Vol] 137 mmol/L 135 - 145 mmol/L [facility] Work Phone: Urea nitrogen (BldV) [Mass/Vol] 29 mg/dL High 9 - 20 mg/dL [facility] Work Phone: Test Performed by [facility], [address] [place] [id number] [facility] Work Phone: CBC with Auto DifferentialOr dered [...] 11.2 g/dL Low 11.7 - 16 g/dL [facility] Interpretation and review of laboratory results Abnormal [...] 3.68 10*6/uL Low 3.8 - 5.2 10*6/uL [facility] WBC (Bld) [#/Vol] 18.2 10*3/uL High 3.6 - 10.7 10*3/uL [facility] CBC with Auto Differentialon 04-11-2022 Test Performed by [facility], [address] [place] [id number] [place] [address] LAB COVID and Resp PCR Panelon 0 04-11-2022 SARS-CoV-2 (COVID-19) RNA VICKI+probe Ql (Unsp spec) COVID and Resp PCR Panel --> Status: F NEGATIVE: No targets were detected by the [employer] Upper Respiratory Pathogens PCR Panel. _ Expected [...] pneumoniae, Mycoplasma pneumoniae. Method: Real-time PCR. Normal [facility] Comment on above: Performed By: #### M DIFF, BMP3M, HEMDF #### [facility] [address] [place] [address] Fluoroscopy modified barium swallow with videoon 04-11-2022 Radiology Study observation (narrative) [facility] Work Phone: Hemogram w/ Autodiffon 04-11 Abs Baso Cnt 0.1 10*3/uL Normal 0.0-0.2 [facility] Comment on above: Performed By: #### M DIFF, MG3, HEMDF, BMP3M #### [facility] [address] [place] [address] Abs Neutrophile Cnt 15.3 10*3/uL High 1.8-7.0 [facility] Comment on above: Performed By: #### M DIFF, MG3, HEMDF, BMP3M #### [facility] [address] [place] [address] Basophils/100 WBC (Bld) 0.3 % Normal 0.0-2.[address] [facility] Comment on above: Performed By: #### M DIFF, MG3, HEMDF, BMP3M #### [facility] [address] [place] [address] Eosinophils (Bld) [#/Vol] 0.0 10*3/uL Normal 0.0-0.5 [facility] Comment on above: Performed By: #### M DIFF, MG3, HEMDF, BMP3M #### [facility] [address] [place] [address] Eosinophils/100 WBC (Bld) 0.1 % Low 1.0-6.0 [facility] Comment on above: Performed By: #### M DIFF, MG3, HEMDF, BMP3M #### [facility] [address] [place] [address] Erythrocyte distribution width (RBC) [Ratio] 15.1 % High 11.5-14.5 [facility] Comment on above: Performed By: #### M DIFF, MG3, HEMDF, BMP3M #### [facility] [address] [place] [address] Granulocytes/100 WBC (Bld) 83.9 % High 40.0-80.0 [facility] Comment on above: Performed By: #### M DIFF, MG3, HEMDF, BMP3M #### [facility] [address] [place] [address] Hematocrit (Bld) [Volume fraction] 33.7 % Low 35.0-47.0 [facility] Comment on above: Performed By: #### M DIFF, MG3, HEMDF, BMP3M #### [facility] [address] [place] [address] Hemoglobin (Bld) [Mass/Vol] 11.2 g/dL Low 11.7-16.0 [facility] Comment on above: Performed By: #### M DIFF, MG3, HEMDF, BMP3M #### [facility] [address] [place] [address] Lymphocytes (Bld) [#/Vol] 1.1 10*3/uL Normal 1.0-4.3 [facility] Comment on above: Performed By: #### M DIFF, MG3, HEMDF, BMP3M #### [facility] [address] [place] [address] Lymphocytes/100 WBC (Bld) 5.9 % Low 20.0-40.0 [facility] Comment on above: Performed By: #### M DIFF, MG3, HEMDF, BMP3M #### [facility] [address] [place] [address] MCH (RBC) [Entitic mass] 30.3 pg Normal 26.0-34.0 [facility] Comment on above: Performed By: #### M DIFF, MG3, HEMDF, BMP3M #### [facility] [address] [place] [address] MCHC 33.2 % Normal 32.0-36.0 [facility] Comment on above: Performed By: #### M DIFF, MG3, HEMDF, BMP3M #### [facility] [address] [place] [address] MCV (RBC) [Entitic vol] 91.5 fL Normal 79.0-98.[address] [facility] Comment on above: Performed By: #### M DIFF, MG3, HEMDF, BMP3M #### [facility] [address] [place] [address] Monocytes (Bld) [#/Vol] 1.8 10*3/uL High 0.0-0.8 [facility] Comment on above: Performed By: #### M DIFF, MG3, HEMDF, BMP3M #### [facility] [address] [place] [address] Monocytes/100 WBC (Bld) 9.8 % Normal 2.0-10.[address] [facility] Comment on above: Performed By: #### M DIFF, MG3, HEMDF, BMP3M #### [facility] [address] [place] [address] Platelet mean volume (Bld) [Entitic vol] 8.4 fL Normal 7.4-12.4 [facility] Comment on above: Result Comment: MPV is a calculated measurement using platelet volume ratio. Performed By: #### M DIFF, MG3, HEMDF, BMP3M #### [facility] [address] [place] [address] Platelets (Bld) [#/Vol] 170 10*3/uL Normal 140-440 [facility] Comment on above: Performed By: #### M DIFF, MG3, HEMDF, BMP3M #### [facility] [address] [place] [address] RBC (Bld) [#/Vol] 3.68 10*6/uL Low 3.80-5.20 [facility] Comment on above: Performed By: #### M DIFF, MG3, HEMDF, BMP3M #### [facility] [address] [place] [address] WBC (Bld) [#/Vol] 18.2 10*3/uL High 3.6-10.7 [facility] Comment on above: Performed By: #### M DIFF, MG3, HEMDF, BMP3M #### [facility] [address] [place] [address] LEGIONELLA AG, URINEon 04-11 LEGIONELLA AG, URINE LEGIONELLA AG, URINE --> Status: F Legionella antigen NOT DETECTED. Normal [facility] Comment on above: Performed By: #### M DIFF, BMP3M, HEMDF #### [facility] [address] [place] [address] Lactate, Sepsison 04-11-2022 Lactate [Moles/Vol] 0.9 mmol/L 0.7 - 2 mmol/L [facility] Test Performed by [place] [address] [place], [place] [id number] [place] [address] LAB [facility] Lactic Acid, Sepsison 2021 Lactate [Moles/Vol] 0.9 mmol/L Normal 0.7-2.0 [facility] Comment on above: Performed By: #### M DIFF, MG3, HEMDF, BMP3M #### [facility] [address] [facility] [address] Legionella Antigen, Urineon 04-11-2022 LEGIONELLA ANTIGEN Not detected [facility] Work Phone: Magnesiumon 04-11-2022 Magnesium [Mass/Vol] 1.8 mg/dL Normal 1.6-2.3 [facility] Comment on above: Performed By: #### M DIFF, MG3, HEMDF, BMP3M #### [facility] [address] [place] [address] Magnesium [Mass/Vol] 1.8 mg/dL 1.6 - 2 .3 mg/dL [facility] Work Phone: Test Performed by [facility], [facility] [address] [place], [place] [id number] [place] [address] LAB [facility] Work Phone: No Panel Informationon 04-11 Test Performed by [facility], [address] [place] [id number] [facility] LAB [facility] Work Phone: Procalcitoninon 04-11-2022 Interpretation See Below Normal [facility] Comment on above: Result Comment: PCT <0.50 = Low risk of severe sepsis and/or septic shock. PCT >2.00 = High risk of severe sepsis and/or septic shock. Performed By: #### M DIFF, MG3, HEMDF, BMP3M #### [facility] [address] [place] [address] RBC Morphologyon 04-11-2022 Anisocytosis Ql (Bld) Slight Normal [facility] Comment on above: Performed By: #### M DIFF, MG3, HEMDF, BMP3M #### [facility] [address] [place] [address] RBC morphology finding Nom (Bld) ABNORMAL Normal [facility] Comment on above: Performed By: #### M DIFF, MG3, HEMDF, BMP3M #### [facility] [address] [place] [address] RF Swallowing Function w/ Vi deoon 04-11-2022 RF Swallowing Function w/ Video Patient Name: UBALDO ARANGO Fluoroscopy ACCESSION EXAM DATE/TIME PROCEDURE ORDERING PROVIDER [id number] 04/11/2022 12:45 EDT RF Swallowing Function PRICILA MARIE w/ Video CPT code 82628 Reason For Exam (RF Swallowing Function w/ [...] piriform sinuses. Pharyngeal Phase: Transient laryngeal penetration. [place]: Oral Phase: Premature pharyngeal spillage to valleculae. [...] Transcribed Date and Time: 04/12/2022 5:24 Normal [facility] Respiratory Panel, Molecular , with COVID-19 [...] Chlamydia pneumoniae, Mycoplasma pneumoniae. Method: Real-time PCR. [facility] Test Performed by [facility], [address] [place] [address] LAB [facility] [employer]ORAT[employer] TECHNICIAN Modified Barium Swallow Studyon 04-11-2022 [employer] TECHNICIAN Modified Barium Swallow Study Patient Name: UBALDO ARANGO Fluoroscopy ACCESSION EXAM DATE/TIME PROCEDURE ORDERING PROVIDER [id number] 04/11/2022 12:45 EDT [employer] TECHNICIAN Modified Barium PRICILA MARIE Swallow Study Reason For Exam ([employer] TECHNICIAN Modified Barium Swallow Study) Sepsis, unspecified organism [...] cracker pieces coated with Varibar honey Varibar [place] presented via cup. Varibar Thin Liquid presented [...] Dictated on Final Dictating Physician: FABBY LAMAR, CCC/PETROLEUM LABORATORY TECHNICIANRAQUEL Signed Date and Time: 04/11/2022 3:43 pm Signed by: FABBY LAMAR, KHLOE/[employer]ROLEUM LABORATORY TECHNICIANRAQUEL Transcribed Date and Time: 04/11/2022 3:44 Normal [facility] [employer] TECHNICIAN video swallowon 04-11-20 Patient Name: UBALDO ARANGO Fluoroscopy ACCESSION EXAM DATE/TIME PROCEDURE ORDERING PROVIDER [id number] 04/11/2022 12:45 EDT [employer] TECHNICIAN Modified Barium PRICILA MARIE Swallow Study Reason For Exam ([employer]ORATORY TECHNICIAN Modified Barium Swallow Study) Sepsis, unspecified organism [...] cracker pieces coated with Varibar honey Varibar [place] presented via cup. Varibar Thin Liquid presented [...] --- Final --- Dictating Physician: FABBY LAMAR, KHLOE/[employer]ROLEUM LABORATORY TECHNICIAN, RAQUEL Signed Date and Time: 04/11/2022 3:43 pm Signed by: FABBY LAMAR, KHLOE/RAQUEL ALLEN Transcribed Date and Time: 04/11/2022 3:44 [facility] Result, Unknown Provider - 04/11/2022 Patient Name: UBALDO ARANGO Fluoroscopy ACCESSION EXAM DATE/TIME PROCEDURE ORDERING PROVIDER [id number] 04/11/2022 12:45 EDT [employer]AT[employer] TECHNICIAN Modified Barium PRICILA MARIE Swallow Study Reason For Exam ([employer]ORATORY TECHNICIAN Modified Barium Swallow Study) Sepsis, unspecified organism [...] cracker pieces coated with Varibar honey Varibar [place] presented via cup. Varibar Thin Liquid presented [...] --- Final --- Dictating Physician: FABBY LAMAR, KHLOE/PETROLEUM LABORATORY TECHNICIANRAQUEL Signed Date and Time: 04/11/2022 3:43 pm Signed by: FABBY LAMAR, KHLOE/PETROLEUM LABORATORY TECHNICIANRAQUEL Transcribed Date and Time: 04/11/2022 3:44 [facility] Work Phone: [employer] TECHNICIAN video swallowOrdered By: Unknown Result on 04-11-2022 [facility] PNEUMO ANTIGEN, URINEo n 04-11-2022 STREP PNEUMO ANTIGEN, URINE STREP PNEUMO ANTIGEN, URINE --> Status: F Strep pneumo antigen NOT DETECTED. Normal [facility] Comment on above: Performed By: #### M DIFF, BMP3M, HEMDF #### [facility] [address] [place] [address] STREP PNEUMONIAE ANTIGENon 0 04-11-2022 STREP PNEUMONIAE ANTIGEN, URINE Not detected [facility] Work Phone: Troponinon 04-11-2022 Troponin I.cardiac [Mass/Vol] 0.027 ng/mL 0 - 0.034 ng/mL [facility] Work Phone: Comment on above: . Test Performed by [facility], [address] [place], [place] [address] [facility] LAB [facility] Work Phone: Troponin Ion 04-11-2022 Troponin I.cardiac [Mass/Vol] 0.027 ng/mL Normal 0.000-0.034 [facility] Comment on above: Result Comment: . Performed By: #### M DIFF, MG3, HEMDF, BMP3M #### [facility] [address] [place] [address] Basic Metabolic Panelon Anion gap [Moles/Vol] 8 mmol/L Normal 3-13 [facility] Comment on above: Performed By: #### M DIFF, BMP3M, HEMDF #### [facility] [address] [place] [address] Calcium [Mass/Vol] 8.7 mg/dL Normal 8.4-10.4 [facility] Comment on above: Performed By: #### M DIFF, BMP3M, HEMDF #### [facility] [address] [place] [address] CO2 [Moles/Vol] 27 mmol/L Normal 22-30 [facility] Comment on above: Performed By: #### M DIFF, BMP3M, HEMDF #### [facility] [address] [place] [address] Creatinine [Mass/Vol] 1.40 mg/dL High 0.52-1.25 [facility] Comment on above: Performed By: #### M DIFF, BMP3M, HEMDF #### [facility] [address] [place] [address] GFR/1.73 sq M.predicted among blacks MDRD (S/P/Bld) [Vol rate/Area] 43.2 mL/min/{1.73_m2} Abnormal >60 [facility] Comment on above: Performed By: #### M DIFF, BMP3M, HEMDF #### [facility] [address] [place] [address] GFR/1.73 sq M.predicted among non-blacks MDRD (S/P/Bld) [Vol rate/Area] 37.2 mL/min/{1.73_m2} Abnormal >60 [facility] Comment on above: Result Comment: KDIG [...] By: #### M DIFF, BMP3M, HEMDF #### [facility] [address] [place] [address] Glucose [Mass/Vol] 134 mg/dL High 70-100 [facility] Comment on above: Performed By: #### M DIFF, BMP3M, HEMDF #### [facility] [address] [place] [address] Urea nitrogen [Mass/Vol] 35 mg/dL High 9-20 [facility] Comment on above: Performed By: #### M DIFF, BMP3M, HEMDF #### [facility] [address] [place] [address] Potassium [Moles/Vol] 3.9 mmol/L Normal 3.5-5.1 [facility] Comment on above: Performed By: #### M DIFF, BMP3M, HEMDF #### [facility] [address] [place] [address] Sodium [Moles/Vol] 135 mmol/L Normal 135-145 [facility] Comment on above: Performed By: #### M DIFF, BMP3M, HEMDF #### [facility] [address] [place] [address] Chloride [Moles/Vol] 100 mmol/L Normal 98-107 [facility] Comment on above: Performed By: #### M DIFF, BMP3M, HEMDF #### [facility] [address] [place] [address] Anion gap [Moles/Vol] 8 mmol/L 3 - 13 mmol/L [facility] Calcium [Mass/Vol] 8.7 mg/dL 8.4 - 10. 4 mg/dL [facility] Chloride [Moles/Vol] 100 mmol/L 98 - 10 7 mmol/L [facility] CO2 [Moles/Vol] 27 mmol/L 22 - 30 mmol/L [facility] Creatinine [Mass/Vol] 1.4 mg/dL High 0.52 - 1.25 mg/dL [facility] EGFR IF NonAfrican [place] 37.2 mL/min Abnormal 60 - PINF mL/min [facility] Comment on above: KDIGO guidelines pro [...] 35 mg/dL High 9 - 20 mg/dL [facility] CBC with Auto Differentialon 04-10-2022 Absolute Baso [...] Radiology ACCESSION EXAM DATE/TIME PROCEDURE ORDERING PROVIDER [id number] 04/10/2022 21:01 EDT CR Chest Portable NILO KENNEDY CPT code 48560 Reason For Exam (CR Chest Portable) fever, [...] Transcribed Date and Time: 04/10/2022 9:05 Normal [facility] Complete Urinalysison 2021 Appearance (U) Ex.Turbid Abnormal Clear [facility] Comment on above: Result Comment: . Performed By: #### M DIFF, MG3, HEMDF, BMP3M #### [facility] [address] [place] [address] Bacteria Many Abnormal Negative [facility] Comment on above: Result Comment: . Performed By: #### M DIFF, MG3, HEMDF, BMP3M #### [facility] [address] [place] [address] Bilirubin,Urine Negative Normal Negative [facility] Comment on above: Result Comment: . Performed By: #### M DIFF, MG3, HEMDF, BMP3M #### [facility] [address] [place] [address] Cast, Hyaline 0 - [address] [facility] Comment on above: Result Comment: . Performed By: #### M DIFF, MG3, HEMDF, BMP3M #### [facility] [address] [place] [address] Color (U) Yellow Normal Lt. Yellow [facility] Comment on above: Result Comment: . Performed By: #### M DIFF, MG3, HEMDF, BMP3M #### [facility] [address] [place] [address] Glucose Ql (U) Normal Normal Normal (<70) [facility] Comment on above: Result Comment: . Performed By: #### M DIFF, MG3, HEMDF, BMP3M #### [facility] [address] [place] [address] Ketone,Urine Negative Normal Negative [facility] Comment on above: Result Comment: . Performed By: #### M DIFF, MG3, HEMDF, BMP3M #### [facility] [address] [place] [address] Leukocytes,Urine 500 Johnnie/uL Abnormal Negative [facility] Comment on above: Result Comment: . Performed By: #### M DIFF, MG3, HEMDF, BMP3M #### [facility] [address] [place] [address] Mucous Threads Few Normal Negative [facility] Comment on above: Result Comment: . Performed By: #### M DIFF, MG3, HEMDF, BMP3M #### [facility] [address] [place] [address] Nitrites,Urine Positive Abnormal Negative [facility] Comment on above: Result Comment: . Performed By: #### M DIFF, MG3, HEMDF, BMP3M #### [facility] [address] [place] [address] Occult Blood,Urine 0.2 mg/dL Abnormal Negative [facility] Comment on above: Result Comment: . Performed By: #### M DIFF, MG3, HEMDF, BMP3M #### [facility] [address] [place] [address] pH,Urine 6.0 Normal 5.0-8.0 [facility] Comment on above: Result Comment: . Performed By: #### M DIFF, MG3, HEMDF, BMP3M #### [facility] [address] [place] [address] Protein (U) [Mass/Vol] 100 mg/dL Abnormal Negative [facility] Comment on above: Result Comment: . Performed By: #### M DIFF, MG3, HEMDF, BMP3M #### [facility] [address] [place] [address] RBC, Urine 6 - 10 Abnormal 0-2 [facility] Comment on above: Result Comment: . Performed By: #### M DIFF, MG3, HEMDF, BMP3M #### [facility] [address] [place] [address] Specific [place],Urine 1.013 Normal 1.005 - 1.030 [facility] Comment on above: Result Comment: . Performed By: #### M DIFF, MG3, HEMDF, BMP3M #### [facility] [address] [place] [address] Squamous Epithelial 0 - 2 Normal 3-5 [facility] Comment on above: Result Comment: . Performed By: #### M DIFF, MG3, HEMDF, BMP3M #### [facility] [address] [place] [address] Urobilinogen,Urine Normal Normal Normal (0-1) [facility] Comment on above: Result Comment: . Performed By: #### M DIFF, MG3, HEMDF, BMP3M #### [facility] [address] [place] [address] WBC LM.HPF (Urine sed) [#/Area] /[HPF] Abnormal 0-5 [facility] Comment on above: Result Comment: . Performed By: #### M DIFF, MG3, HEMDF, BMP3M #### [facility] [address] [place] [address] White Blood Cell Clump Many Abnormal Negative [facility] Comment on above: Result Comment: . Performed By: #### M DIFF, MG3, HEMDF, BMP3M #### [facility] [address] [place] [address] ED Provider Noteon [address] [facility] ED EMERGENCY DEPARTMENT ENCOUNTER Pt Name: Ubaldo [...] department for evaluation of fever. [facility]. alf staff said she had a seizure 2 [...] pneumonia. Read (more content not included)... Normal [facility] EKG 12 Lead - Chest Painon 0 04-10-2022 [facility] Test Date: 2022-04-10 Pat Name: UBALDO ARANGO Department: 2AED Room: 16 Gender: F Field Service Tech: JAMEEL : 1950 Requested By: NILO KENNEDY Order Number: [id number] Reading MD: Nilo Kennedy Measurements Intervals [place] Rate: 90 P: 41 AK: 162 QRS: 2 QRSD: 78 T: -57 QT: QTc: 0 Interpretive Statements Sinus rhythm BORDERLINE LEFT AXIS DEVIATION Low voltage, precordial leads Borderline repolarization abnormality No previous ECG available for comparison Electronically Signed On 04-10-2022 21:29:46 EDT by Nilo Kennedy [facility] Nilo Kennedy MD - 04/10/2022 [facility] Test Date: 2022-04-10 Pat Name: UBALDO ARANGO Department: 2AED Room: 16 Gender: F Field Service Tech: JAMEEL : 1950 Requested By: NILO KENNEDY Order Number: [id number] Reading MD: Nilo Kennedy Measurements Intervals [place] Rate: 90 P: 41 AK: 162 QRS: 2 QRSD: 78 T: -57 QT: QTc: 0 Interpretive Statements Sinus rhythm BORDERLINE LEFT AXIS DEVIATION Low voltage, precordial leads Borderline repolarization abnormality No previous ECG available for comparison Electronically Signed On 04-10-2022 21:29:46 EDT by Nilo Kennedy [facility] Work Phone: [facility] Work Phone: Hemogram w/ Autodiffon 04-10 Abs Baso Cnt 0.0 10*3/uL Normal 0.0-0.2 [facility] Comment on above: Performed By: #### M DIFF, MG3, HEMDF, BMP3M #### [facility] [address] [place] [address] Abs Neutrophile Cnt 17.8 10*3/uL High 1.8-7.0 [facility] Comment on above: Performed By: #### M DIFF, MG3, HEMDF, BMP3M #### [facility] [address] [place] [address] Basophils/100 WBC (Bld) 0.1 % Normal 0.0-2.[address] [facility] Comment on above: Performed By: #### M DIFF, MG3, HEMDF, BMP3M #### [facility] [address] [place] [address] Eosinophils (Bld) [#/Vol] 0.0 10*3/uL Normal 0.0-0.5 [facility] Comment on above: Performed By: #### M DIFF, MG3, HEMDF, BMP3M #### [facility] [address] [place] [address] Eosinophils/100 WBC (Bld) 0.0 % Low 1.0-6.0 [facility] Comment on above: Performed By: #### M DIFF, MG3, HEMDF, BMP3M #### [facility] [address] [place] [address] Erythrocyte distribution width (RBC) [Ratio] 15.1 % High 11.5-14.5 [facility] Comment on above: Performed By: #### M DIFF, MG3, HEMDF, BMP3M #### [facility] [address] [place] [address] Granulocytes/100 WBC (Bld) 85.2 % High 40.0-80.0 [facility] Comment on above: Performed By: #### M DIFF, MG3, HEMDF, BMP3M #### [facility] [address] [place] [address] Hematocrit (Bld) [Volume fraction] 36.7 % Normal 35.0-47.0 [facility] Comment on above: Performed By: #### M DIFF, MG3, HEMDF, BMP3M #### [facility] [address] [place] [address] Hemoglobin (Bld) [Mass/Vol] 12.1 g/dL Normal 11.7-16.0 [facility] Comment on above: Performed By: #### M DIFF, MG3, HEMDF, BMP3M #### [facility] [address] [place] [address] Lymphocytes (Bld) [#/Vol] 1.4 10*3/uL Normal 1.0-4.3 [facility] Comment on above: Performed By: #### M DIFF, MG3, HEMDF, BMP3M #### [facility] [address] [place] [address] Lymphocytes/100 WBC (Bld) 6.7 % Low 20.0-40.0 [facility] Comment on above: Performed By: #### M DIFF, MG3, HEMDF, BMP3M #### [facility] [address] [place] [address] MCH (RBC) [Entitic mass] 30.2 pg Normal 26.0-34.0 [facility] Comment on above: Performed By: #### M DIFF, MG3, HEMDF, BMP3M #### [facility] [facility] [address] [place] [address] MCHC 33.0 % Normal 32.0-36.0 [facility] Comment on above: Performed By: #### M DIFF, MG3, HEMDF, BMP3M #### [facility] [address] [place] [address] MCV (RBC) [Entitic vol] 91.6 fL Normal 79.0-98.0 [facility] Comment on above: Performed By: #### M DIFF, MG3, HEMDF, BMP3M #### [facility] [address] [place] [address] Monocytes (Bld) [#/Vol] 1.7 10*3/uL High 0.0-0.8 [facility] Comment on above: Performed By: #### M DIFF, MG3, HEMDF, BMP3M #### [facility] [address] [place] [address] Monocytes/100 WBC (Bld) 8.0 % Normal 2.0-10.0 [facility] Comment on above: Performed By: #### M DIFF, MG3, HEMDF, BMP3M #### [place] [address] [place] [address] Platelet mean volume (Bld) [Entitic vol] 8.6 fL Normal 7.4-12.4 [facility] Comment on above: MPV is a calculated measurement using platelet volume ratio. Result Comment: MPV is a calculated measurement using platelet volume ratio. Performed By: #### M DIFF, MG3, HEMDF, BMP3M #### [place] [address] [place] [address] Platelets (Bld) [#/Vol] 210 10*3/uL Normal 140-440 [facility] Comment on above: Performed By: #### M DIFF, MG3, HEMDF, BMP3M #### [place] [address] [place] [address] RBC (Bld) [#/Vol] 4.01 10*6/uL Normal 3.80-5.20 [facility] Comment on above: Performed By: #### M DIFF, MG3, HEMDF, BMP3M #### [facility] [address] [place] [address] WBC (Bld) [#/Vol] 20.9 10*3/uL High 3.6-10.7 [facility] Comment on above: Performed By: #### M DIFF, MG3, HEMDF, BMP3M #### [facility] [address] [place] [address] Hepatic Functionon 09-06-202 2 ALT [Catalytic activity/Vol] 15 U/L Normal 0-34 [facility] Comment on above: Result Comment: The ALT test is performed by an updated assay method. Please note that the reference intervals have been changed and are now sex specific. Performed By: #### M DIFF, MG3, HEMDF, BMP3M #### [facility] [address] [place] [address] ALP [Catalytic activity/Vol] 64 U/L Normal 38-126 [facility] Comment on above: Performed By: #### M DIFF, MG3, HEMDF, BMP3M #### [facility] [address] [place] [address] AST [Catalytic activity/Vol] 31 U/L Normal 15-46 [facility] Comment on above: Performed By: #### M DIFF, MG3, HEMDF, BMP3M #### [facility] [address] [place] [address] Bilirubin [Mass/Vol] 0.3 mg/dL Normal 0.2-1.3 [facility] Comment on above: Performed By: #### M DIFF, MG3, HEMDF, BMP3M #### [facility] [address] [place] [address] Bilirubin.indirect [Mass/Vol] 0.0 mg/dL Normal 0.0-0.3 [facility] Comment on above: Performed By: #### M DIFF, MG3, HEMDF, BMP3M #### [facility] [address] [place] [address] Protein [Mass/Vol] 7.3 g/dL Normal 6.3-8.2 [facility] Comment on above: Performed By: #### M DIFF, MG3, HEMDF, BMP3M #### [facility] [address] [place] [address] Albumin [Mass/Vol] 3.6 g/dL Normal 3.5-5.0 [facility] Comment on above: Performed By: #### M DIFF, MG3, HEMDF, BMP3M #### [facility] [address] [place] [address] Hepatic Function Panelon Albumin [Mass/Vol] 3.6 g/dL 3.5 - 5 g/dL [facility] ALP (Bld) [Catalytic activity/Vol] 64 U/L 38 - 126 U/L [facility] ALT [Catalytic activity/Vol] 15 U/L 0 - 34 U/L [facility] Comment on above: The ALT test is perf ormed by an updated assay method. Please note that the reference intervals have been changed and are now sex specific. AST [Catalytic activity/Vol] 31 U/L 15 - 46 U/L [facility] Bilirubin [Mass/Vol] 0.3 mg/dL 0.2 - 1 .3 mg/dL [facility] Bilirubin.indirect [Mass/Vol] 0.0 mg/dL 0 - 0.3 mg/dL [facility] Free PSA/Total PSA [Mass fraction] 7.3 g/dL 6.3 - 8.2 g/dL [facility] Lactate, Sepsison 04-10-2022 Lactate [Moles/Vol] 2.7 mmol/L Critically high 0.7 - 2 mmol/L [facility] Test Performed by [facility], [address] [place], [place] [address] [facility] Lactic Acid, Sepsison 2021 Lactate [Moles/Vol] 2.7 mmol/L Critically high 0.7-2.0 [facility] Comment on above: Performed By: #### M DIFF, MG3, HEMDF, BMP3M #### [facility] [address] [place] [address] Lipaseon 04-10-2022 Lipase [Catalytic activity/Vol] 89 U/L Normal 23-300 [facility] Comment on above: Performed By: #### M DIFF, MG3, HEMDF, BMP3M #### [facility] [address] [place] [address] Lipase [Catalytic activity/Vol] 89 U/L 23 - 300 U/L [facility] Magnesiumon 04-10-2022 Magnesium [Mass/Vol] 2.1 mg/dL Normal 1.6-2.3 [facility] Comment on above: Performed By: #### M DIFF, MG3, HEMDF, BMP3M #### [facility] [address] [place] [address] Magnesium [Mass/Vol] 2.1 mg/dL 1.6 - 2 .3 mg/dL [facility] No Panel Informationon 04-10 Test Performed by [facility], [address] [place], [place] [id number] [place] [address] LAB [facility] Interpretation and review of laboratory results Abnormal [facility] Test Performed by [facility], [address] [place] [address] LAB [facility] RBC MORPHOLOGYon 04-10-2022 Anisocytosis Ql (Bld) Slight [facility] RBC (Bld) [#/Vol] ABNORMAL [facility] Troponin Ion 04-10-2022 Troponin I.cardiac [Mass/Vol] 0.046 ng/mL High 0.000-0.034 [facility] Comment on above: Result Comment: . Performed By: #### M DIFF, MG3, HEMDF, BMP3M #### [facility] [address] [place] [address] Troponin x1on 04-10-2022 Troponin I.cardiac [Mass/Vol] 0.046 ng/mL High 0 - 0.034 ng/mL [facility] Comment on above: . Test Performed by [facility], [address] [place] [address] LAB [facility] Urinalysison 04-10-2022 Appearance (U) Ex.Turbid [...] /[HPF] [facility] Comment on above: . Specific [place], Urine 1.013 [facility] Comment on above: . Squam Epithel, UA 0-2 3 - 5 /[HPF] [facility] Comment on above: . Urobilinogen, Urine Normal Normal ( 0-1) mg/dL [facility] Comment on above: . WBC Clumps, Urine Many Abnormal Negative /[HPF] [facility] Comment on above: . WBC, UA /[HPF] Abnormal 0 - 5 /[HPF] [facility] Comment on above: . Test Performed by [facility], [address] [place], [place] [id number] [place] [address] LAB [facility] XR CHEST PORTABLEon 04-10-20 Patient Name: UBALDO ARANGO Diagnostic Radiology ACCESSION EXAM DATE/TIME PROCEDURE ORDERING PROVIDER [id number] 04/10/2022 21:01 EDT CR Chest Portable NILO KENNEDY CPT code 63753 Reason For Exam (CR Chest Portable) fever, [...] JASON Transcribed Date and Time: 04/10/2022 9:05 [facility] James Sánchez MD - 04/10/2022 Patient Name: UBALDO ARANGO Diagnostic Radiology ACCESSION EXAM DATE/TIME PROCEDURE ORDERING PROVIDER [id number] 04/10/2022 21:01 EDT CR Chest Portable NILO KENNEDY CPT code 94229 Reason For Exam (CR Chest Portable) fever, [...] JASON Transcribed Date and Time: 04/10/2022 9:05 [facility] Work Phone: Radiology Study observation (narrative) [facility] Work Phone: XR CHEST PORTABLEOrdered By: James Sánchez on 04-10-2022 [facility] Work Phone: No Panel Informationon 03-26 Valproic Acid (Depakene) Level 51 ug/mL 50-100 [facility] Work Phone: Basophil percentageon 2021 Cholesterol [Mass/Vol] 196 mg/dL <200 [facility] Work Phone: Comment on above: <200 mg/dL Desirable 200-240 mg/dL Borderline >240 mg/dL High Risk Triglyceride [Mass/Vol] 208 mg/dL <199 [facility] Work Phone: Comment on above: The drugs N-Acetylcy steine and Metamizole may falsely depress this assay.Serum Triglycerides Reference Interval Normal <150 mg/dL Borderline high 150 - 199 mg/dL High 200 - 499 mg/dL Very High > or = 500 mg/dL WBC (Bld) [#/Vol] 9.1 10*3/uL 4.4-11.0 [facility] Work Phone: Blood erythrocytes count (nu mber/volume)on 02-21-2022 RBC (Bld) [#/Vol] 4.74 10*6/uL 4.2-5.4 [facility] Work Phone: Blood hemoglobin measurement (mass/volume)on 02-21-2022 Hemoglobin (Bld) [Mass/Vol] 13.9 g/dL 12.0-15.0 [facility] Work Phone: Blood platelet mean volumeon 02-21-2022 Platelet mean volume (Bld) [Entitic vol] 10.5 fL 6.2-12.0 [facility] Work Phone: Determination of erythrocyte mean corpuscular volume (MCV)on 02-21-2022 MCV (RBC) [Entitic vol] 93.7 fL 81-99 [facility] Work Phone: Hematocrit Auto (Bld) [Volum e fraction]on 02-21-2022 Hematocrit (Bld) [Volume fraction] 44.4 % 37-47 [facility] Work Phone: Laboratory - Hematology and Cell countson 02-21-2022 Erythrocyte distribution width (RBC) [Entitic vol] 52.2 fL 35.1-43.9 [facility] Work Phone: Erythrocyte distribution width (RBC) [Ratio] 15.1 % 11.6-14.6 [facility] Work Phone: MCH (RBC) [Entitic mass] 29.3 pg 27.0-32.0 [facility] Work Phone: MCHC Auto (RBC) [Mass/Vol]on 02-21-2022 MCHC (RBC) [Mass/Vol] 31.3 g/dL 32-36 [facility] Work Phone: Platelets bldon 02-21-2022 Platelets (Bld) [#/Vol] 311 10*3/uL 150-450 [facility] Work Phone: Serum or plasma cholesterol in HDL measurement (mass/volume)on 02-21-2022 Cholesterol in HDL [Mass/Vol] 48 mg/dL >40 [facility] Work Phone: Comment on above: The drugs N-Acetylcy steine and Metamizole may falsely depress this assay. Reference Range HDL <40 mg/dL Low HDL Cholesterol HDL >or= 60 mg/dL High HDL Cholesterol Serum or plasma cholesterol in VLDL measurement (mass/volume)on 02-21-2022 Cholesterol in VLDL [Mass/Vol] 42 mg/dL 5-40 [facility] Work Phone: Serum or plasma low density lipoprotein (LDL) cholesterol measurement (mass/volume)on 02-21-2022 Cholesterol in LDL [Mass/Vol] 106 mg/dL 0-130 [facility] Work Phone: Basophil percentageon 2021 Chloride [Moles/Vol] 104 mmol/L 98-107 [facility] Work Phone: Glucose [Mass/Vol] 82 mg/dL 74-106 [facility] Work Phone: Potassium [Moles/Vol] 4.3 mmol/L 3.5-5.1 [facility] Work Phone: Sodium [Moles/Vol] 138 mmol/L 136-145 [facility] Work Phone: WBC (Bld) [#/Vol] 9.2 10*3/uL 4.4-11.0 [facility] Work Phone: Blood erythrocytes count (nu mber/volume)on 01-30-2022 RBC (Bld) [#/Vol] 4.29 10*6/uL 4.2-5.4 [facility] Work Phone: Blood hemoglobin measurement (mass/volume)on 01-30-2022 Hemoglobin (Bld) [Mass/Vol] 12.9 g/dL 12.0-15.0 [facility] Work Phone: Blood platelet mean volumeon 01-30-2022 Platelet mean volume (Bld) [Entitic vol] 10.3 fL 6.2-12.0 [facility] Work Phone: Determination of erythrocyte mean corpuscular volume (MCV)on 01-30-2022 MCV (RBC) [Entitic vol] 91.8 fL 81-99 [facility] Work Phone: Hematocrit Auto (Bld) [Volum e fraction]on 01-30-2022 Hematocrit (Bld) [Volume fraction] 39.4 % 37-47 [facility] Work Phone: Laboratory - Chemistry and C hemistry - challengeon 01-30-2022 CO2 [Moles/Vol] 26.0 mmol/L 21.0-32.0 [facility] Work Phone: Urea nitrogen/Creatinine [Mass ratio] 33.9 mg/mg 10-20 [facility] Work Phone: Laboratory - Hematology and Cell countson 01-30-2022 Erythrocyte distribution width (RBC) [Entitic vol] 51.7 fL 35.1-43.9 [facility] Work Phone: Erythrocyte distribution width (RBC) [Ratio] 15.3 % 11.6-14.6 [facility] Work Phone: MCH (RBC) [Entitic mass] 30.1 pg 27.0-32.0 [facility] Work Phone: MCHC Auto (RBC) [Mass/Vol]on 01-30-2022 MCHC (RBC) [Mass/Vol] 32.7 g/dL 32-36 [facility] Work Phone: No Panel Informationon 01-30 Estimated GFR (MDRD) Amer 122 mL/min >60 [facility] Work Phone: Comment on above: GFR Calc Estimated GFR (MDRD) Non-Af Amer 101 mL/min >60 [facility] Work Phone: Comment on above: Non- GFR Calc Platelets bldon 01-30-2022 Platelets (Bld) [#/Vol] 246 10*3/uL 150-450 [facility] Work Phone: Serum or plasma calcium love urement (mass/volume)on 01-30-2022 Calcium [Mass/Vol] 9.4 mg/dL 8.5-10.1 [facility] Work Phone: Serum or plasma creatinine m easurement (mass/volume)on 01-30-2022 Creatinine [Mass/Vol] 0.62 mg/dL 0.55-1.[address] [facility] Work Phone: Comment on above: The validity of the calculated GFR & GFRAA in patients over 70 years has not been determined. Clinical correlation is essential. Serum or plasma urea nitroge n measurement (mass/volume)on 01-30-2022 Urea nitrogen [Mass/Vol] 21 mg/dL 7-18 [facility] Work Phone: Thin prep Papanicolaou smear with manual screeningon 01-30-2022 Thin prep Papanicolaou smear with manual screening 8 5-15 [facility] Work Phone: No Panel Informationon 01-25 Valproic Acid (Depakene) Level 40 ug/mL 50-100 [facility] Work Phone: Basophil percentageon 2021 Bilirubin [Mass/Vol] 0.10 mg/dL 0.20-1.00 [facility] Work Phone: Comment on above: For patients on eltr ombopag therapy, use of Dimension Norco TBIL is not recommended. Chloride [Moles/Vol] 105 mmol/L 98-107 [facility] Work Phone: Cholesterol [Mass/Vol] 220 mg/dL <200 [facility] Work Phone: Comment on above: <200 mg/dL Desirable 200-240 mg/dL Borderline >240 mg/dL High Risk Glucose [Mass/Vol] 86 mg/dL 74-106 [facility] Work Phone: Potassium [Moles/Vol] 4.6 mmol/L 3.5-5.1 [facility] Work Phone: Protein [Mass/Vol] 7.8 g/dL 6.4-8.2 [facility] Work Phone: Sodium [Moles/Vol] 137 mmol/L 136-145 [facility] Work Phone: Triglyceride [Mass/Vol] 330 mg/dL <199 [facility] Work Phone: Comment on above: The drugs N-Acetylcy steine and Metamizole may falsely depress this assay.Serum Triglycerides Reference Interval Normal <150 mg/dL Borderline high 150 - 199 mg/dL High 200 - 499 mg/dL Very High > or = 500 mg/dL WBC (Bld) [#/Vol] 10.2 10*3/uL 4.4-11.0 [facility] Work Phone: Blood erythrocytes count (nu mber/volume)on 12-25-2021 RBC (Bld) [#/Vol] 4.74 10*6/uL 4.2-5.4 [facility] Work Phone: Blood hemoglobin measurement (mass/volume)on 12-25-2021 Hemoglobin (Bld) [Mass/Vol] 14.0 g/dL 12.0-15.0 [facility] Work Phone: Blood platelet mean volumeon 12-25-2021 Platelet mean volume (Bld) [Entitic vol] 11.0 fL 6.2-12.0 [facility] Work Phone: Determination of erythrocyte mean corpuscular volume (MCV)on 12-25-2021 MCV (RBC) [Entitic vol] 91.8 fL 81-99 [facility] Work Phone: Hematocrit Auto (Bld) [Volum e fraction]on 12-25-2021 Hematocrit (Bld) [Volume fraction] 43.5 % 37-47 [facility] Work Phone: Laboratory - Chemistry and C hemistry - challengeon 12-25-2021 ALP [Catalytic activity/Vol] 68 U/L 45-117 [facility] Work Phone: ALT [Catalytic activity/Vol] 18 U/L 13-56 [facility] Work Phone: CO2 [Moles/Vol] 26.0 mmol/L 21.0-32.0 [facility] Work Phone: Globulin (S) [Mass/Vol] 4.7 g/dL 2.2-4.2 [facility] Work Phone: Urea nitrogen/Creatinine [Mass ratio] 31.7 mg/mg 10-20 [facility] Work Phone: Laboratory - Hematology and Cell countson 12-25-2021 Erythrocyte distribution width (RBC) [Entitic vol] 51.7 fL 35.1-43.9 [facility] Work Phone: Erythrocyte distribution width (RBC) [Ratio] 15.2 % 11.6-14.6 [facility] Work Phone: MCH (RBC) [Entitic mass] 29.5 pg 27.0-32.0 [facility] Work Phone: MCHC Auto (RBC) [Mass/Vol]on 12-25-2021 MCHC (RBC) [Mass/Vol] 32.2 g/dL 32-36 [facility] Work Phone: No Panel Informationon 12-25 Estimated GFR (MDRD) Amer 107 mL/min >60 [facility] Work Phone: Comment on above: GFR Calc Estimated GFR (MDRD) Non-Af Amer 88 mL/min >60 [facility] Work Phone: Comment on above: Non- GFR Calc Valproic Acid (Depakene) Level 44 ug/mL 50-100 [facility] Work Phone: Platelets bldon 05-23-2022 Platelets (Bld) [#/Vol] 277 10*3/uL 150-450 [facility] Work Phone: Serum or plasma albumin love urement (mass/volume)on 12-25-2021 Albumin [Mass/Vol] 3.1 g/dL 3.2-5.0 [facility] Work Phone: Serum or plasma albumin/glob ulin mass ratioon 12-25-2021 Albumin/Globulin [Mass ratio] 0.7 {ratio} 0.9-2.4 [facility] Work Phone: Serum or plasma calcium love urement (mass/volume)on 12-25-2021 Calcium [Mass/Vol] 9.7 mg/dL 8.5-10.1 [facility] Work Phone: Serum or plasma cholesterol in HDL measurement (mass/volume)on 12-25-2021 Cholesterol in HDL [Mass/Vol] 45 mg/dL >40 [facility] Work Phone: Comment on above: The drugs N-Acetylcy steine and Metamizole may falsely depress this assay. Reference Range HDL <40 mg/dL Low HDL Cholesterol HDL >or= 60 mg/dL High HDL Cholesterol Serum or plasma cholesterol in VLDL measurement (mass/volume)on 12-25-2021 Cholesterol in VLDL [Mass/Vol] 66 mg/dL 5-40 [facility] Work Phone: Serum or plasma creatinine m easurement (mass/volume)on 12-25-2021 Creatinine [Mass/Vol] 0.69 mg/dL 0.55-1.[address] [facility] Work Phone: Comment on above: The validity of the calculated GFR & GFRAA in patients over 70 years has not been determined. Clinical correlation is essential. Serum or plasma low density lipoprotein (LDL) cholesterol measurement (mass/volume)on 12-25-2021 Cholesterol in LDL [Mass/Vol] 109 mg/dL 0-130 [facility] Work Phone: Serum or plasma urea nitroge n measurement (mass/volume)on 12-25-2021 Urea nitrogen [Mass/Vol] 22 mg/dL 7-18 [facility] Work Phone: Thin prep Papanicolaou smear with manual screeningon 12-25-2021 Thin prep Papanicolaou smear with manual screening 15 U/L 15-37 [facility] Work Phone: Thin prep Papanicolaou smear with manual screening 6 5-15 [facility] Work Phone: Basophil percentageon 2021 Chloride [Moles/Vol] 102 mmol/L 98-107 [facility] Work Phone: Glucose [Mass/Vol] 91 mg/dL 74-106 [facility] Work Phone: Potassium [Moles/Vol] 3.8 mmol/L 3.5-5.[address] [facility] Work Phone: Sodium [Moles/Vol] 137 mmol/L 136-145 [facility] Work Phone: WBC (Bld) [#/Vol] 7.7 10*3/uL 4.4-11.0 [facility] Work Phone: Blood erythrocytes count (nu mber/volume)on 12-12-2021 RBC (Bld) [#/Vol] 4.44 10*6/uL 4.2-5.4 [facility] Work Phone: Blood hemoglobin measurement (mass/volume)on 12-12-2021 Hemoglobin (Bld) [Mass/Vol] 12.9 g/dL 12.0-15.0 [facility] Work Phone: Blood platelet mean volumeon 12-12-2021 Platelet mean volume (Bld) [Entitic vol] 11.5 fL 6.2-12.0 [facility] Work Phone: Determination of erythrocyte mean corpuscular volume (MCV)on 12-12-2021 MCV (RBC) [Entitic vol] 92.1 fL 81-99 [facility] Work Phone: Hematocrit Auto (Bld) [Volum e fraction]on 12-12-2021 Hematocrit (Bld) [Volume fraction] 40.9 % 37-47 [facility] Work Phone: Laboratory - Chemistry and C hemistry - challengeon 12-12-2021 CO2 [Moles/Vol] 29.0 mmol/L 21.0-32.0 [facility] Work Phone: Urea nitrogen/Creatinine [Mass ratio] 24.4 mg/mg 10-20 [facility] Work Phone: Laboratory - Hematology and Cell countson 12-12-2021 Erythrocyte distribution width (RBC) [Entitic vol] 53.3 fL 35.1-43.9 [facility] Work Phone: Erythrocyte distribution width (RBC) [Ratio] 15.8 % 11.6-14.6 [facility] Work Phone: MCH (RBC) [Entitic mass] 29.1 pg 27.0-32.0 [facility] Work Phone: MCHC Auto (RBC) [Mass/Vol]on 12-12-2021 MCHC (RBC) [Mass/Vol] 31.5 g/dL 32-[address] [facility] Work Phone: No Panel Informationon 12-12 Estimated GFR (MDRD) Amer 123 mL/min >60 [facility] Work Phone: Comment on above: GFR Calc Estimated GFR (MDRD) Non-Af Amer 102 mL/min >60 [facility] Work Phone: Comment on above: Non- GFR Calc Platelets bldon 12-12-2021 Platelets (Bld) [#/Vol] 288 10*3/uL 150-450 [facility] Work Phone: Serum or plasma calcium love urement (mass/volume)on 12-12-2021 Calcium [Mass/Vol] 9.1 mg/dL 8.5-10.1 [facility] Work Phone: Serum or plasma creatinine m easurement (mass/volume)on 12-12-2021 Creatinine [Mass/Vol] 0.61 mg/dL 0.55-1.[address] [facility] Work Phone: Comment on above: The validity of the calculated GFR & GFRAA in patients over 70 years has not been determined. Clinical correlation is essential. Serum or plasma urea nitroge n measurement (mass/volume)on 12-12-2021 Urea nitrogen [Mass/Vol] 15 mg/dL 7-18 [facility] Work Phone: Thin prep Papanicolaou smear with manual screeningon 12-12-2021 Thin prep Papanicolaou smear with manual screening 6 5-15 [facility] Work Phone: Basophil percentageon 2021 Chloride [Moles/Vol] 101 mmol/L 98-107 [facility] Work Phone: Glucose [Mass/Vol] 94 mg/dL 74-106 [facility] Work Phone: Potassium [Moles/Vol] 4.3 mmol/L 3.5-5.[address] [facility] Work Phone: Comment on above: Slight Hemolysis, Re sult may be falsely increased. Sodium [Moles/Vol] 138 mmol/L 136-145 [facility] Work Phone: WBC (Bld) [#/Vol] 9.0 10*3/uL 4.4-11.0 [facility] Work Phone: Blood erythrocytes count (nu mber/volume)on 10-30-2021 RBC (Bld) [#/Vol] 4.63 10*6/uL 4.2-5.4 [facility] Work Phone: Blood hemoglobin measurement (mass/volume)on 10-30-2021 Hemoglobin (Bld) [Mass/Vol] 13.7 g/dL 12.0-15.0 [facility] Work Phone: Blood platelet mean volumeon 10-30-2021 Platelet mean volume (Bld) [Entitic vol] 11.0 fL 6.2-12.0 [facility] Work Phone: Determination of erythrocyte mean corpuscular volume (MCV)on 10-30-2021 MCV (RBC) [Entitic vol] 91.4 fL 81-99 [facility] Work Phone: Hematocrit Auto (Bld) [Volum e fraction]on 10-30-2021 Hematocrit (Bld) [Volume fraction] 42.3 % 37-47 [facility] Work Phone: Laboratory - Chemistry and C hemistry - challengeon 10-30-2021 CO2 [Moles/Vol] 31.0 mmol/L 21.0-32.0 [facility] Work Phone: Urea nitrogen/Creatinine [Mass ratio] 31.2 mg/mg 10-20 [facility] Work Phone: Laboratory - Hematology and Cell countson 10-30-2021 Erythrocyte distribution width (RBC) [Entitic vol] 50.8 fL 35.1-43.9 [facility] Work Phone: Erythrocyte distribution width (RBC) [Ratio] 15.3 % 11.6-14.6 [facility] Work Phone: MCH (RBC) [Entitic mass] 29.6 pg 27.0-32.0 [facility] Work Phone: MCHC Auto (RBC) [Mass/Vol]on 10-30-2021 MCHC (RBC) [Mass/Vol] 32.4 g/dL 32-36 [facility] Work Phone: No Panel Informationon 10-30 Estimated GFR (MDRD) Amer 111 mL/min >60 [facility] Work Phone: Comment on above: GFR Calc Estimated GFR (MDRD) Non-Af Amer 91 mL/min >60 [facility] Work Phone: Comment on above: Non- GFR Calc Platelets bldon 10-30-2021 Platelets (Bld) [#/Vol] 289 10*3/uL 150-450 [facility] Work Phone: Serum or plasma calcium love urement (mass/volume)on 10-30-2021 Calcium [Mass/Vol] 9.2 mg/dL 8.5-10.1 [facility] Work Phone: Serum or plasma creatinine m easurement (mass/volume)on 10-30-2021 Creatinine [Mass/Vol] 0.67 mg/dL 0.55-1.[address] [facility] Work Phone: Comment on above: The validity of the calculated GFR & GFRAA in patients over 70 years has not been determined. Clinical correlation is essential. Serum or plasma urea nitroge n measurement (mass/volume)on 10-30-2021 Urea nitrogen [Mass/Vol] 21 mg/dL 7-18 [facility] Work Phone: Thin prep Papanicolaou smear with manual screeningon 10-30-2021 Thin prep Papanicolaou smear with manual screening 6 5-15 [facility] Work Phone: No Panel Informationon 09-25 Valproic Acid (Depakene) Level 52 ug/mL 50-100 [facility] Work Phone: No Panel Informationon 09-20 Valproic Acid (Depakene) Level 50 ug/mL 50-100 [facility] Work Phone: Basophil percentageon 2021 Bilirubin [Mass/Vol] 0.30 mg/dL 0.20-1.00 [facility] Work Phone: Comment on above: For patients on eltr ombopag therapy, use of Dimension Norco TBIL is not recommended. Chloride [Moles/Vol] 105 mmol/L 98-107 [facility] Work Phone: Glucose [Mass/Vol] 85 mg/dL 74-106 [facility] Work Phone: Potassium [Moles/Vol] 4.1 mmol/L 3.5-5.1 [facility] Work [facility]: Protein [Mass/Vol] 7.3 g/dL 6.4-8.2 [facility] Work Phone: Sodium [Moles/Vol] 138 mmol/L 136-145 [facility] Work Phone: WBC (Bld) [#/Vol] 7.8 10*3/uL 4.4-11.0 [facility] Work Phone: Blood erythrocytes count (nu mber/volume)on 09-14-2021 RBC (Bld) [#/Vol] 4.31 10*6/uL 4.2-5.4 [facility]: Blood hemoglobin measurement (mass/volume)on 09-14-2021 Hemoglobin (Bld) [Mass/Vol] 13.0 g/dL 12.0-15.0 [facility] Work Phone: Blood platelet mean volumeon 09-14-2021 Platelet mean volume (Bld) [Entitic vol] 10.5 fL 6.2-12.0 [facility] Work Phone: Determination of erythrocyte mean corpuscular volume (MCV)on 09-14-2021 MCV (RBC) [Entitic vol] 90.0 fL 81-99 [facility] Work Phone: Hematocrit Auto (Bld) [Volum e fraction]on 09-14-2021 Hematocrit (Bld) [Volume fraction] 38.8 % 37-47 [facility] Work Phone: Laboratory - Chemistry and C hemistry - challengeon 09-14-2021 ALP [Catalytic activity/Vol] 68 U/L 45-117 [facility] Work Phone: ALT [Catalytic activity/Vol] 18 U/L 13-56 [facility] Work Phone: CO2 [Moles/Vol] 28.0 mmol/L 21.0-32.0 [facility] Work Phone: Globulin (S) [Mass/Vol] 4.2 g/dL 2.2-4.2 [facility] Work Phone: Urea nitrogen/Creatinine [Mass ratio] 24.4 mg/mg 10-20 [facility] Work Phone: Laboratory - Hematology and Cell countson 09-14-2021 Erythrocyte distribution width (RBC) [Entitic vol] 49.1 fL 35.1-43.9 [facility] Work Phone: Erythrocyte distribution width (RBC) [Ratio] 14.9 % 11.6-14.6 [facility] Work Phone: MCH (RBC) [Entitic mass] 30.2 pg 27.0-32.0 [facility] Work Phone: MCHC Auto (RBC) [Mass/Vol]on 09-14-2021 MCHC (RBC) [Mass/Vol] 33.5 g/dL 32-[address] [facility] Work Phone: No Panel Informationon 09-14 Estimated GFR (MDRD) Amer 99 mL/min >60 [facility] Work Phone: Comment on above: GFR Calc Estimated GFR (MDRD) Non-Af Amer 82 mL/min >60 [facility] Work Phone: Comment on above: Non- GFR Calc Platelets bldon 09-14-2021 Platelets (Bld) [#/Vol] 303 10*3/uL 150-450 [facility] Work Phone: Serum or plasma albumin love urement (mass/volume)on 09-14-2021 Albumin [Mass/Vol] 3.1 g/dL 3.2-5.0 [facility] Work Phone: Serum or plasma albumin/glob ulin mass ratioon 09-14-2021 Albumin/Globulin [Mass ratio] 0.7 {ratio} 0.9-2.4 [facility] Work Phone: Serum or plasma calcium love urement (mass/volume)on 09-14-2021 Calcium [Mass/Vol] 9.0 mg/dL 8.5-10.1 [facility] Work Phone: Serum or plasma creatinine m easurement (mass/volume)on 09-14-2021 Creatinine [Mass/Vol] 0.74 mg/dL 0.55-1.[address] [facility] Work Phone: Comment on above: The validity of the calculated GFR & GFRAA in patients over 70 years has not been determined. Clinical correlation is essential. Serum or plasma urea nitroge n measurement (mass/volume)on 09-14-2021 Urea nitrogen [Mass/Vol] 18 mg/dL 7-18 [facility] Work Phone: Thin prep Papanicolaou smear with manual screeningon 09-14-2021 Thin prep Papanicolaou smear with manual screening 16 U/L 15-37 [facility] Work Phone: Thin prep Papanicolaou smear with manual screening 5 5-15 [facility] Work Phone: Basophil percentageon 2021 Bilirubin [Mass/Vol] 0.10 mg/dL 0.20-1.00 [facility] Work Phone: Comment on above: For patients on eltr ombopag therapy, use of Dimension Norco TBIL is not recommended. Chloride [Moles/Vol] 102 mmol/L 98-107 [facility] Work Phone: Glucose [Mass/Vol] 87 mg/dL 74-106 [facility] Work Phone: Potassium [Moles/Vol] 4.3 mmol/L 3.5-5.[address] [facility] Work Phone: Comment on above: Slight Hemolysis, Re sult may be falsely increased. Protein [Mass/Vol] 8.0 g/dL 6.4-8.2 [facility] Work Phone: Sodium [Moles/Vol] 137 mmol/L 136-145 [facility] Work Phone: Laboratory - Chemistry and C hemistry - challengeon 08-31-2021 ALP [Catalytic activity/Vol] 82 U/L 45-117 [facility] Work Phone: ALT [Catalytic activity/Vol] 22 U/L 13-56 [facility] Work Phone: CO2 [Moles/Vol] 27.0 mmol/L 21.0-32.0 [facility] Work Phone: Globulin (S) [Mass/Vol] 4.9 g/dL 2.2-4.2 [facility] Work Phone: Urea nitrogen/Creatinine [Mass ratio] 25.6 mg/mg 10-20 [facility] Work Phone: No Panel Informationon 08-31 Estimated GFR (MDRD) Amer 99 mL/min >60 [facility] Work Phone: Comment on above: GFR Calc Estimated GFR (MDRD) Non-Af Amer 82 mL/min >60 [facility] Work Phone: Comment on above: Non- GFR Calc Serum or plasma albumin love urement (mass/volume)on 08-31-2021 Albumin [Mass/Vol] 3.1 g/dL 3.2-5.0 [facility] Work Phone: Serum or plasma albumin/glob ulin mass ratioon 08-31-2021 Albumin/Globulin [Mass ratio] 0.6 {ratio} 0.9-2.4 [facility] Work Phone: Serum or plasma calcium love urement (mass/volume)on 08-31-2021 Calcium [Mass/Vol] 9.1 mg/dL 8.5-10.1 [facility] Work Phone: Serum or plasma creatinine m easurement (mass/volume)on 08-31-2021 Creatinine [Mass/Vol] 0.74 mg/dL 0.55-1.[address] [facility] Work Phone: Comment on above: The validity of the calculated GFR & GFRAA in patients over 70 years has not been determined. Clinical correlation is essential. Serum or plasma urea nitroge n measurement (mass/volume)on 08-31-2021 Urea nitrogen [Mass/Vol] 19 mg/dL 7-18 [facility] Work Phone: Thin prep Papanicolaou smear with manual screeningon 08-31-2021 Thin prep Papanicolaou smear with manual screening 17 U/L 15-37 [facility] Work Phone: Comment on above: Slight Hemolysis, Re sult may be falsely increased. Thin prep Papanicolaou smear with manual screening 8 5-15 [facility] Work Phone: Basophil percentageon 2021 Bilirubin [Mass/Vol] 0.20 mg/dL 0.20-1.00 [facility] Work Phone: Comment on above: For patients on eltr ombopag therapy, use of Dimension Norco TBIL is not recommended. Chloride [Moles/Vol] 106 mmol/L 98-107 [facility] Work Phone: Cholesterol [Mass/Vol] 185 mg/dL <200 [facility] Work Phone: Comment on above: <200 mg/dL Desirable 200-240 mg/dL Borderline >240 mg/dL High Risk Glucose [Mass/Vol] 92 mg/dL 74-106 [facility] Work Phone: Potassium [Moles/Vol] 3.9 mmol/L 3.5-5.[address] [facility] Work Phone: Protein [Mass/Vol] 7.4 g/dL 6.4-8.2 [facility] Work Phone: Sodium [Moles/Vol] 140 mmol/L 136-145 [facility] Work Phone: Triglyceride [Mass/Vol] 217 mg/dL [facility] Work Phone: Comment on above: The drugs N-Acetylcy steine and Metamizole may falsely depress this assay.Serum Triglycerides Reference Interval Normal <150 mg/dL Borderline high 150 - 199 mg/dL High 200 - 499 mg/dL Very High > or = 500 mg/dL WBC (Bld) [#/Vol] 6.7 10*3/uL 4.4-11.0 [facility] Work Phone: Blood erythrocytes count (nu mber/volume)on 08-24-2021 RBC (Bld) [#/Vol] 4.49 10*6/uL 4.2-5.4 [facility] Work Phone: Blood hemoglobin measurement (mass/volume)on 08-24-2021 Hemoglobin (Bld) [Mass/Vol] 13.1 g/dL 12.0-15.0 [facility] Work Phone: Blood platelet mean volumeon 08-24-2021 Platelet mean volume (Bld) [Entitic vol] 10.6 fL 6.2-12.0 [facility] Work Phone: Determination of erythrocyte mean corpuscular volume (MCV)on 08-24-2021 MCV (RBC) [Entitic vol] 91.1 fL 81-99 [facility] Work Phone: Hematocrit Auto (Bld) [Volum e fraction]on 08-24-2021 Hematocrit (Bld) [Volume fraction] 40.9 % 37-47 [facility] Work Phone: Laboratory - Chemistry and C hemistry - challengeon 08-24-2021 ALP [Catalytic activity/Vol] 67 U/L 45-117 [facility] Work Phone: ALT [Catalytic activity/Vol] 20 U/L 13-56 [facility] Work Phone: CO2 [Moles/Vol] 27.0 mmol/L 21.0-32.0 [facility] Work Phone: Globulin (S) [Mass/Vol] 4.2 g/dL 2.2-4.2 [facility] Work Phone: Urea nitrogen/Creatinine [Mass ratio] 23.5 mg/mg - [facility] Work Phone: Laboratory - Hematology and Cell countson 08-24-2021 Erythrocyte distribution width (RBC) [Entitic vol] 50.9 fL 35.1-43.9 [facility] Work Phone: Erythrocyte distribution width (RBC) [Ratio] 15.3 % 11.6-14.6 [facility] Work Phone: MCH (RBC) [Entitic mass] 29.2 pg 27.0-32.0 [facility] Work Phone: MCHC Auto (RBC) [Mass/Vol]on 08-24-2021 MCHC (RBC) [Mass/Vol] 32.0 g/dL 32-36 [facility] Work Phone: No Panel Informationon 08-24 Estimated GFR (MDRD) Amer 102 mL/min >60 [facility] Work Phone: Comment on above: GFR Calc Estimated GFR (MDRD) Non-Af Amer 84 mL/min >60 [facility] Work Phone: Comment on above: Non- GFR Calc Thyroid Stimulating Hormone (TSH) 4.64 uIU/mL 0.358-3.74 [facility] Work Phone: Platelets bldon 08-24-2021 Platelets (Bld) [#/Vol] 306 10*3/uL 150-450 [facility] Work Phone: Serum or plasma albumin love urement (mass/volume)on 08-24-2021 Albumin [Mass/Vol] 3.2 g/dL 3.2-5.0 [facility] Work Phone: Serum or plasma albumin/glob ulin mass ratioon 08-24-2021 Albumin/Globulin [Mass ratio] 0.8 {ratio} 0.9-2.4 [facility] Work Phone: Serum or plasma calcium love urement (mass/volume)on 08-24-2021 Calcium [Mass/Vol] 8.7 mg/dL 8.5-10.1 [facility] Work Phone: Serum or plasma cholesterol in HDL measurement (mass/volume)on 08-24-2021 Cholesterol in HDL [Mass/Vol] 47 mg/dL [facility] Work Phone: Comment on above: The drugs N-Acetylcy steine and Metamizole may falsely depress this assay. Reference Range HDL <40 mg/dL Low HDL Cholesterol HDL >or= 60 mg/dL High HDL Cholesterol Serum or plasma cholesterol in VLDL measurement (mass/volume)on 08-24-2021 Cholesterol in VLDL [Mass/Vol] 43 mg/dL 5-40 [facility] Work Phone: Serum or plasma creatinine m easurement (mass/volume)on 08-24-2021 Creatinine [Mass/Vol] 0.72 mg/dL 0.55-1.[address] [facility] Work Phone: Comment on above: The validity of the calculated GFR & GFRAA in patients over 70 years has not been determined. Clinical correlation is essential. Serum or plasma low density lipoprotein (LDL) cholesterol measurement (mass/volume)on 08-24-2021 Cholesterol in LDL [Mass/Vol] 95 mg/dL 0-130 [facility] Work Phone: Serum or plasma urea nitroge n measurement (mass/volume)on 08-24-2021 Urea nitrogen [Mass/Vol] 17 mg/dL 7-18 [facility] Work Phone: Thin prep Papanicolaou smear with manual screeningon 08-24-2021 Thin prep Papanicolaou smear with manual screening 16 U/L 15-37 [facility] Work Phone: Thin prep Papanicolaou smear with manual screening 7 5-15 [facility] Work Phone: No Panel Informationon 08-09 Valproic Acid (Depakene) Level 47 ug/mL 50-100 [facility] Work Phone: Basic Metabolic Panel w/ Ref [...] mg/dL [facility] Work Phone: EGFR IF NonAfrican [place]auan >90.0 >60 mL/min [facility] Work Phone: Comment [...] Interpretation and review of laboratory results Abnormal [employer] Work Phone: Potassium [Moles/Vol] 4.1 mmol/L 3.5 - 5.1 mmol/L [employer] Work Phone: Sodium [Moles/Vol] 136 mmol/L 135 - 145 mmol/L [employer] Work Phone: Urea nitrogen (BldV) [Mass/Vol] 8 mg/dL 7 - 20 mg/dL [employer] Work Phone: Test Performed by [facility], [address] [place] [id number] [employer] Work Phone: CBC Auto DifferentialOrdered By: Pricila Mcleod on 12-02-2020 Absolute Baso # 0.1 10*3/uL 0.0 - 0.2 10*3/uL [employer] Work Phone: Absolute Neut # 6.7 10*3/uL 1.8 - 7.0 10*3/uL [employer] Work Phone: Basophils/100 WBC (Bld) 1.0 % 0.0 - 2.0 % [employer] Work Phone: Eosinophils (Bld) [#/Vol] 0.5 10*3/uL 0.0 - 0.5 10*3/uL [employer] Work Phone: Eosinophils/100 WBC (Bld) 4.5 % 1.0 - 6.0 % [employer] Work Phone: Granulocytes/100 WBC (Bld) 60.5 % 40.0 - 80.0 % [facility] Work Phone: Hematocrit (Bld) [Volume fraction] 36.6 % 35.0 - 47.0 % [employer] Work Phone: Hemoglobin.gastrointesti nal spec 1 Ql (Stl) 11.8 g/dL 11.7 - 16.0 g/dL [employer] Work Phone: Interpretation and review of laboratory results Abnormal [employer] Work Phone: Lymphocytes (Bld) [#/Vol] 2.8 10*3/uL 1.0 - 4.3 10*3/uL [employer] Work Phone: Lymphocytes/100 WBC (Bld) 25.1 % 20.0 - 40.0 % [employer] Work Phone: MCH (RBC) [Entitic mass] 27.7 pg 26. 0 - 34.0 pg [employer] Work Phone: MCHC (RBC) [Mass/Vol] 32.2 % 32.0 - 36.0 % [employer] Work Phone: MCV (RBC) [Entitic vol] 86.2 fL 79.0 - 98.0 fL [employer] Work Phone: Monocytes (Bld) [#/Vol] 1.0 10*3/uL High 0.0 - 0.8 10*3/uL [employer] Work Phone: [phone] Monocytes/100 WBC (Bld) 8.9 % 2.0 - 10.0 % [employer] Work Phone: Platelet distribution width (Bld) [Ratio] 16.4 % High 11.5 - 14.5 % [employer] [facility] [employer] Phone: Platelet mean volume (Bld) [Entitic vol] 8.1 fL 7.4 - 10.4 fL [facility] Phone: Platelets (Bld) [#/Vol] 355 10*3/uL 140 - 440 10*3/uL [employer] Work Phone: RBC (Bld) [#/Vol] 4.25 10*6/uL 3.80 - 5.2 0 10*6/uL [employer] Work Phone: WBC (Bld) [#/Vol] 11.2 10*3/uL High 3.6 - 10.7 10*3/uL [employer] Work Phone: Test Performed by [facility], [address] [place] [address] [facility] Work Phone: Special treatments and proce duresOrdered By: Pricila Mcleod on 12-02-2020 Patient Name: UBALDO ARANGO Special Procedures ACCESSION EXAM DATE/TIME PROCEDURE ORDERING PROVIDER [id number] 12/02/2020 15:39 EDT XA Special Angiography 5813 -PRICILA MCLEOD Procedure Reason For Exam (XA Special Angiography Procedure) PICC line for IV Antibiotics; pt will likely need sedation for procedure Report Reason for examination: Need for emt intermediate intravenous access. After obtaining consent, ultrasound with [...] in the vein. Through this a 5 [place] double lumen PICC line was inserted. The [...] Phone: [place], [facility]coming [facility] Results From [facility] - 12/02/2020 3:48 PM EDT Patient Name: UBALDO ARANGO Special Procedures ACCESSION EXAM DATE/TIME PROCEDURE ORDERING PROVIDER [id number] 12/02/2020 15:39 EDT XA Special Angiography 5813 -PRICILA MCLEOD Procedure Reason For Exam (XA Special Angiography Procedure) PICC line for IV Antibiotics; pt will likely need sedation for procedure Report Reason for examination: Need for emt intermediate intravenous access. After obtaining consent, ultrasound with [...] in the vein. Through this a 5 [place] double lumen PICC line was inserted. The [...] WILLIAM Transcribed Date and Time: 12/02/2020 3:48 [employer] Work Phone: Vancomycin, TroughOrdered By : Naz Madera on 12-02-2020 Vancomycin Tr 19.1 ug/mL 15.0 - 20.0 ug/mL [employer] Work Phone: Comment on above: . Test Performed by [facility], [address] [place], [place] [address] [employer] Work Phone: Basic Metabolic Panel w/ Ref taiwo to MGOrdered By: Pricila Mcleod on 12-01-2020 Anion gap [Moles/Vol] 5 mmol/L 3 - 13 mmol/L [facility] Work Phone: Calcium [Mass/Vol] 9.1 mg/dL 8.4 - 10. 4 mg/dL [facility] Work Phone: Chloride [Moles/Vol] 110 mmol/L High 98 - 10 7 mmol/L [facility] Work Phone: CO2 [Moles/Vol] 23 mmol/L 22 - 30 mmol/L [facility] Work Phone: Creatinine [Mass/Vol] 0.47 mg/dL Low 0.52 - 1.25 mg/dL [facility] Work Phone: EGFR IF NonAfrican [place]auan >90.0 >60 mL/min [facility] Work Phone: Comment [...] >60 mL/min [facility] Work Phone: Glucose [Mass/Vol] 98 mg/dL 70 - 100 mg/dL [facility] Work Phone: Interpretation and review of laboratory results Abnormal [facility] Work Phone: Potassium [Moles/Vol] 3.9 mmol/L 3.5 - 5.1 mmol/L [facility] Work Phone: Sodium [Moles/Vol] 138 mmol/L 135 - 145 mmol/L [employer] Work Phone: Urea nitrogen (BldV) [Mass/Vol] 12 mg/dL 7 - 20 mg/dL [employer] Work Phone: Test Performed by [facility], [address] [place], [place] [address] [employer] Work Phone: CBC Auto DifferentialOrdered By: Pricila Mcleod on 12-01-2020 Hematocrit (Bld) [Volume fraction] 35.8 % 35.0 - 47.0 % [employer] Work Phone: Hemoglobin.gastrointesti nal spec 1 Ql (Stl) 11.7 g/dL 11.7 - 16.0 g/dL [employer] Work Phone: MCH (RBC) [Entitic mass] 27.9 pg 26. 0 - 34.0 pg [employer] Work Phone: MCHC (RBC) [Mass/Vol] 32.7 % 32.0 - 36.0 % [employer] Work Phone: MCV (RBC) [Entitic vol] 85.1 fL 79.0 - 98.0 fL [employer] Work Phone: Platelet distribution width (Bld) [Ratio] 16.4 % High 11.5 - 14.5 % [employer] Work Phone: Platelet mean volume (Bld) [Entitic vol] 9.6 fL 7.4 - 10.4 fL [employer] Work Phone: Platelets (Bld) [#/Vol] 302 10*3/uL 140 - 440 10*3/uL [employer] Work Phone: Comment on above: Giant and large plat elets noted. Revised: Comment was added, verified by KMM at 16:20 on 11/30/20 RBC (Bld) [#/Vol] 4.20 10*6/uL 3.80 - 5.2 0 10*6/uL [employer] Work Phone: WBC (Bld) [#/Vol] 11.7 10*3/uL High 3.6 - 10.7 10*3/uL [employer] Work Phone: Comment on above: Leukocytosis with le ft shift neutrophilia, circulating plasma cells and red cell anisocytosis with agglutination. R/O infection, blood loss/coagulopathy, evolving iron/nutritional deficiencies and/or paraproteinemia. No distinct blasts are seen. service coordinator Revised: Comment was added, verified by KMM at 16:20 on 11/30/20 Hematocrit (Bld) [Volume fraction] 36.5 % 35.0 - 47.0 % [employer] Work Phone: Hemoglobin.gastrointesti nal spec 1 Ql (Stl) 12.0 g/dL 11.7 - 16.0 g/dL [employer] Work Phone: MCH (RBC) [Entitic mass] 27.7 pg 26. 0 - 34.0 pg [employer] Work Phone: MCHC (RBC) [Mass/Vol] 32.7 % 32.0 - 36.0 % [employer] Work Phone: MCV (RBC) [Entitic vol] 84.6 fL 79.0 - 98.0 fL [employer] Work Phone: Platelet distribution width (Bld) [Ratio] 16.7 % High 11.5 - 14.5 % [employer] Work Phone: Platelet mean volume (Bld) [Entitic vol] 8.5 fL 7.4 - 10.4 fL [employer] Work Phone: Platelets (Bld) [#/Vol] 282 10*3/uL 140 - 440 10*3/uL [employer] Work Phone: RBC (Bld) [#/Vol] 4.31 10*6/uL 3.80 - 5.2 0 10*6/uL [employer] Work Phone: WBC (Bld) [#/Vol] 11.3 10*3/uL High 3.6 - 10.7 10*3/uL [facility] Work Phone: Culture, BloodOrdered By: Do bertha Christy on 12-01-2020 Blood Culture, Routine Staphylococcus epidermidis DETECTED; mecA/C DETECTED. Proteus species DETECTED. Presumptive identification performed using [employer] PCR methodology; confirmatory identification to follow. _ [employer] BCID2 PCR Panel can detect the following [...] KPC, NDM, OXA-48-like, VIM, and mcr-1. Abnormal [facility] Phone: Blood Culture, Routine Staphylococcus epidermidis Abnormal [facility] Phone: Blood Culture, Routine Isolated: [employer] Work Phone: Blood Culture, Routine Proteus mirabilis Abnormal [facility] Phone: Blood Culture, Routine Staphylococcus hominis Abnormal [facility] Phone: Blood Culture, Routine Negative Abnormal [employer] Phone: Blood Culture, Routine Isolated: Possible identification: Staphylococcus pettenkoferi Contamination likely unless additional blood culture sets are found to be positive with the same organism. [facility] Phone: Interpretation and review of laboratory results Abnormal [facility] [employer] Phone: Test Performed by [facility], [address] [place] [id number] [facility] Work Phone: [phone] Culture, Blood 2Ordered By: Álvaro Christy on 12-01-2020 Blood Culture, Routine Staphylococcus epidermidis Abnormal [employer] Work Phone: [phone] Blood Culture, Routine Isolated: For identification and/or sensitivity, refer to culture collected on: 11/27/2020 at 07:48 [[id number]]. [employer] Work Phone: [phone] Blood Culture, Routine Proteus mirabilis Abnormal [employer] Work Phone: [phone] Blood Culture, Routine Staphylococcus hominis Abnormal [employer] Work Phone: [phone] Interpretation and review of laboratory results Abnormal [employer] Work Phone: [phone] Test Performed by [facility], [address] [place] [address] [employer] Work Phone: [phone] Manual DifferentialOrdered B y: Pricila Mcleod on 12-01-2020 Absolute Baso # 0.0 10*3/uL 0.0 - 0.2 10*3/uL [employer] Work Phone: [phone] Absolute Eos # 0.5 10*3/uL 0.0 - 0.5 10*3/uL [employer] Work Phone: [phone] Absolute Lymph # 3.6 10*3/uL 1.1 - 4.5 10*3/uL [employer] Work Phone: [phone] Absolute [place] # 0.9 10*3/uL 0.2 - 1.1 10*3/uL [facility] Work Phone: [phone] Absolute Neut # 6.1 10*3/uL 2.2 - 8.2 10*3/uL [employer] Work Phone: [phone] Anisocytosis Slight [employer] Work Phone: [phone] Atypical Lymphocytes 1 % Abnormal <1 [facility] Work Phone: [phone] Bands 0 % 0 - 3 % [employer] Work Phone: [phone] Basophils/100 WBC (Bld) 0 % 0 - 2 % [facility] Work Phone: [phone] Eosinophils/100 WBC (Bld) 4 % 1 - 6 % [facility] Work Phone: Lymphocytes/100 WBC (Bld) 30 % 20 - 40 % [facility] Work Phone: Metamyelocytes 1 % Abnormal <1 [facility] Work Phone: Monocytes/100 WBC (Bld) 8 % 2 - 10 % S [facility] Work Phone: [phone] Myelocytes 2 % Abnormal <1 [facility] Work Phone: nRBC 1 /100{WBCs} High -1 - 0 /100{WBCs} [facility] Work Phone: Comment on above: [place] (<60 days) 1 -10 Adult <1 Other Cells, Blood 2 % Abnormal <1 [facility] Work Phone: [phone] Ovalocytes Slight [facility] Work Phone: [phone] RBC (Bld) [#/Vol] ABNORMAL [facility] Work Phone: [phone] Seg Neutrophils 52 % 40 - 80 % [facility] Work Phone: TOTAL CELLS COUNTED 100 [facility] Work Phone: [phone] Absolute Baso # 0.0 10*3/uL 0.0 - 0.2 10*3/uL [facility] Work Phone: Absolute Eos # 0.6 10*3/uL High 0.0 - 0.5 10*3/uL [facility] Work Phone: Absolute Lymph # 3.5 10*3/uL 1.1 - 4.5 10*3/uL [facility] Work Phone: Absolute [place] # 0.9 10*3/uL 0.2 - 1.1 10*3/uL [...] % [facility] Work Phone: Monocytes/100 WBC (Bld) 8 % 2 - 10 % S [facility] Work Phone: Ovalocytes Slight [facility] Work Phone: Poikilocytes Slight [facility] Work Phone: RBC (Bld) [#/Vol] ABNORMAL [facility] Work Phone: Seg Neutrophils 55 % 40 - 80 % [facility] Work Phone: [phone] TOTAL CELLS COUNTED 100 [facility] Work Phone: No Panel InformationOrdered By: Pricila Mcleod on 12-01-2020 Interpretation and review of laboratory results Abnormal [facility] Work Phone: Test Performed by [facility], [address] [place] [address] [facility] Work Phone: Interpretation and review of laboratory results Abnormal [facility] Work Phone: Test Performed by [facility], [address] [place] [address] [facility] Work Phone: PROCALCITONINOrdered By: Agnes Mcleod on 12-01-2020 Interpretation See Below [facility] Work Phone: Comment on above: PCT <0.50 = Low risk of severe sepsis and/or septic shock. PCT >2.00 = High risk of severe sepsis and/or septic shock. Interpretation and review of laboratory results Abnormal [facility] Work Phone: Procalcitonin 1.07 ng/mL Abnormal <0.10 [facility] Work Phone: Test Performed by [facility], [address] [place] [address] [employer] Work Phone: Basic Metabolic Panel w/ Ref taiwo to MGOrdered By: Pricila Mcleod on 11-30-2020 Anion gap [Moles/Vol] 5 mmol/L 3 - 13 mmol/L [employer] Work Phone: Calcium [Mass/Vol] 9.3 mg/dL 8.4 - 10. 4 mg/dL [facility] Work Phone: Chloride [Moles/Vol] 106 mmol/L 98 - 10 7 mmol/L [facility] Work Phone: CO2 [Moles/Vol] 27 mmol/L 22 - 30 mmol/L [employer] Work Phone: Creatinine [Mass/Vol] 0.5 mg/dL Low 0.52 - 1.25 mg/dL [employer] [facility] Work Phone: EGFR IF NonAfrican Palauan >90.0 >60 mL/min [employer] Work Phone: Comment on above: KDIGO guidelines [...] MDRD (S/P/Bld) [Vol rate/Area] mL/min/{1.73_m2} >60 mL/min [employer] [facility] Work Phone: Glucose [Mass/Vol] 103 mg/dL High 70 - 100 mg/dL [employer] Work Phone: Interpretation and review of laboratory results Abnormal [facility] Work Phone: Potassium [Moles/Vol] 4.0 mmol/L 3.5 - 5.1 mmol/L [facility] Work Phone: Sodium [Moles/Vol] 139 mmol/L 135 - 145 mmol/L [facility] Work Phone: Urea nitrogen (BldV) [Mass/Vol] 16 mg/dL 7 - 20 mg/dL [facility] Work Phone: Test Performed by [facility], [address] [place] [address] [facility] Work Phone: Vancomycin, TroughOrdered By : Naz Madera on 11-30-2020 Interpretation and review of laboratory results Abnormal [facility] Work Phone: Vancomycin Tr 11.5 ug/mL Low 15.0 - 20.0 ug/mL [facility] Work Phone: [phone] Comment on above: . Test Performed by [facility], [address] [place], [place] [address] [facility] Work Phone: Basic Metabolic PanelOrdered By: [...] mg/dL [facility] Work Phone: EGFR IF NonAfrican Palauan >90.0 >60 mL/min [facility] Work Phone: Comment [...] [Mass/Vol] 95 mg/dL 70 - 100 mg/dL [facility] Work Phone: Potassium [Moles/Vol] 4.3 mmol/L 3.5 - 5.1 mmol/L [facility] Work Phone: Sodium [Moles/Vol] 135 mmol/L 135 - 145 mmol/L [facility] Work Phone: Urea nitrogen (BldV) [Mass/Vol] 19 mg/dL 7 - 20 mg/dL [facility] Work Phone: CBC Auto DifferentialOrdered By: Naz Madrea on 11-29-2020 Absolute Baso # 0.1 10*3/uL 0.0 - 0.2 10*3/uL [facility] Work Phone: Absolute Neut # 6.8 10*3/uL 1.8 - 7.0 10*3/uL [facility] Work Phone: Basophils/100 WBC (Bld) 0.6 % 0.0 - 2.0 % [facility] Work Phone: Eosinophils (Bld) [#/Vol] 0.1 10*3/uL 0.0 - 0.5 10*3/uL [facility] Work Phone: Eosinophils/100 WBC (Bld) 0.8 % Low 1.0 - 6.0 % [facility] Work Phone: Granulocytes/100 WBC (Bld) 62.0 % 40.0 - 80.0 % [facility] Work Phone: Hematocrit (Bld) [Volume fraction] 36.0 % 35.0 - 47.0 % [facility] Work Phone: Hemoglobin.gastrointesti nal spec 1 Ql (Stl) 12.0 g/dL 11.7 - 16.0 g/dL [facility] Work Phone: Interpretation and review of laboratory results Abnormal [facility] Work Phone: Lymphocytes (Bld) [#/Vol] 2.2 10*3/uL 1.0 - 4.3 10*3/uL [facility] Work Phone: Lymphocytes/100 WBC (Bld) 20.4 % 20.0 - 40.0 % [facility] Work Phone: MCH (RBC) [Entitic mass] 28.9 pg 26. 0 - 34.0 pg [facility] Work Phone: MCHC (RBC) [Mass/Vol] 33.4 % 32.0 - 36.0 % [facility] Work Phone: MCV (RBC) [Entitic vol] 86.5 fL 79.0 - 98.0 fL [facility] Work Phone: Monocytes (Bld) [#/Vol] 1.8 10*3/uL High 0.0 - 0.8 10*3/uL [facility] Work Phone: Monocytes/100 WBC (Bld) 16.2 % High 2.0 - 10.0 % [facility] Work Phone: Platelet distribution width (Bld) [Ratio] 16.6 % High 11.5 - 14.5 % [facility] Work Phone: Platelet mean volume (Bld) [Entitic vol] 8.0 fL 7.4 - 10.4 fL [facility] Work Phone: Platelets (Bld) [#/Vol] 214 10*3/uL 140 - 440 10*3/uL [facility] Work Phone: RBC (Bld) [#/Vol] 4.16 10*6/uL 3.80 - 5.2 0 10*6/uL [facility] Work Phone: WBC (Bld) [#/Vol] 11.0 10*3/uL High 3.6 - 10.7 10*3/uL [facility] [employer] Work Phone: Test Performed by [facility], [address] [place] [address] [employer] Work Phone: Culture, UrineOrdered By: Do bertha Christy on 11-29-2020 Bacteria identified Cx Nom (U) Escherichia coli Abnormal [employer] Work Phone: Bacteria identified Cx Nom (U) >100,000 CFU/ml This phenotype is suggestive of an ESBL-producing organism. Treatment with beta-lactam antibiotics other than carbapenems may not be effective. An ID consult may be warranted. [facility] Work Phone: Interpretation and review of laboratory results Abnormal [facility] [facility] Work Phone: Test Performed by [facility], [address] [place] [address] [employer] Work Phone: ECHO Complete 2D W Doppler W ColorOrdered By: Naz Madera on 11-29-2020 TRANSTHORACIC ECHOCARDIOGRAM PATIENT: Ubaldo Arango STUDY DATE: 11/29/2020 : 1950 AGE: 70 HT/WT: 157.5 cm (62 82.6 kg in) (181.6 lb) GENDER: F BP: 146 / 72 LOCATION: [facility] PATIENT Inpatient [facility] STATUS: *ORDERING PHYSICIAN: * Naz MaderaREADING PHYSICIAN: * Nithin *GRAVURE PRINTING MACHINIST: * Delphine Pappas, DO, FSVM, FACC RDCS, [...] Ventricular septum Value (more content not included)... [employer] Work Phone: [place], [facility] Incoming Cardiology Results From [facility] - 11/29/2020 11:04 AM EDT TRANSTHORACIC ECHOCARDIOGRAM PATIENT: Ubaldo Arango STUDY DATE: 11/29/2020 : 1950 AGE: 70 HT/WT: 157.5 cm (62 82.6 kg in) (181.6 lb) GENDER: F BP: 146 / 72 LOCATION: [facility] PATIENT Inpatient [facility] STATUS: *ORDERING PHYSICIAN: * Naz Madera *READING PHYSICIAN: * Nithin *GRAVURE PRINTING MACHINIST: * Delphine Pappas, , FSVM, FACC RDCS, [...] Hg --------- Yoana (more content not included)... [employer] Work Phone: Hemoglobin [id number] By: Krishna Madera on 11-29-2020 HbA1c (Bld) [Mass fraction] 5.5 % [employer] Work Phone: Comment on above: Normal less than 5.7 % Prediabetes 5.7% to 6.4% Diabetes 6.5% or higher --HgbA1C levels may not be accurate in patients who have renal disease, received recent blood transfusions, are anemic, or who have dyshemoglobinemia. Magnesium [Mass/Vol] 111 mg/dL [facility] Work Phone: [phone] Test Performed by [facility], [address] [place], [place] [address] [facility] Work Phone: [phone] MagnesiumOrdered By: Naz Madera on 11-29-2020 Interpretation and review of laboratory results Abnormal [facility] Work Phone: [phone] Magnesium [Mass/Vol] 2.5 mg/dL High 1.6 - 2 .3 mg/dL [facility] Work Phone: [phone] Panel InformationOrdered By: Naz Madera on 11-29-2020 Test Performed by [facility], [address] [place] [address] [facility] Work Phone: [phone] POCT GlucoseOrdered By: Solomon Madera on 11-29-2020 Glucose [Mass/Vol] 91 mg/dL 70 - 100 mg/dL [facility] Work Phone: [phone] Comment on above: Test performed by [employer] ucose meter. Results may be 10%-15% lower than serum/plasma values. (CLIA ID [id number]) Test Performed by [facility], [address] [place], [place] [address] [facility] Work Phone: [phone] PROCALCITONINOrdered By: Yaniv Madera on 11-29-2020 Interpretation See Below [facility] Work Phone: [phone] Comment on above: PCT <0.50 = Low risk of severe sepsis and/or septic shock. PCT >2.00 = High risk of severe sepsis and/or septic shock. Interpretation and review of laboratory results Abnormal [facility] Work Phone: [phone] Procalcitonin 4.62 ng/mL Abnormal <0.10 [facility] Work Phone: [phone] Test Performed by [facility], [address] [place] [address] [facility] Work Phone: [phone] RBC MORPHOLOGYOrdered By: Krishna Madera on 11-29-2020 Anisocytosis Ql (Bld) Slight [facility] Work Phone: [phone] RBC (Bld) [#/Vol] ABNORMAL [facility] Work Phone: [phone] Test Performed by [facility], [address] [place], [place] [address] [facility] Work Phone: [phone] Brain Natriuretic PeptideOrd ered By: Naz Madera on 11-28-2020 Interpretation and review of laboratory results Abnormal [facility] Work Phone: [phone] Natriuretic peptide B (Bld) [Mass/Vol] 2222 pg/mL High 0 - 125 pg/mL [facility] Work Phone: [phone] Test Performed by [facility], [address] [place], [place] [address] [facility] Work Phone: [phone] CBC Auto DifferentialOrdered By: Naz Madera on 11-28-2020 Absolute Baso # 0.0 10*3/uL 0.0 - 0.2 10*3/uL [facility] Work Phone: [phone] Absolute Neut # 11.1 10*3/uL High 1.8 - 7.0 10*3/uL [facility] Work Phone: [phone] Basophils/100 WBC (Bld) 0.3 % 0.0 - 2.0 % [facility] Work Phone: [phone] Eosinophils (Bld) [#/Vol] 0.0 10*3/uL 0.0 - 0.5 10*3/uL [facility] Work Phone: [phone] Eosinophils/100 WBC (Bld) 0.0 % Low 1.0 - 6.0 % [facility] Work Phone: [phone] Granulocytes/100 WBC (Bld) 85.9 % High 40.0 - 80.0 % [facility] Work Phone: [phone] Hematocrit (Bld) [Volume fraction] 35.0 % 35.0 - 47.0 % [facility] Work Phone: [phone] Hemoglobin.gastrointesti nal spec 1 Ql (Stl) 11.6 g/dL Low 11.7 - 16.0 g/dL [facility] Work Phone: [phone] Interpretation and review of laboratory results Abnormal [facility] Work Phone: Lymphocytes (Bld) [#/Vol] 0.6 10*3/uL Low 1.0 - 4.3 10*3/uL [employer] [facility] Work Phone: Lymphocytes/100 WBC (Bld) 4.5 % Low 20.0 - 40.0 % [employer] [facility] Work Phone: MCH (RBC) [Entitic mass] 28.3 pg 26. 0 - 34.0 pg [facility] Work Phone: MCHC (RBC) [Mass/Vol] 33.2 % 32.0 - 36.0 % [employer] [facility] Work Phone: MCV (RBC) [Entitic vol] 85.1 fL 79.0 - 98.0 fL [employer] [facility] Work Phone: Monocytes (Bld) [#/Vol] 1.2 10*3/uL High 0.0 - 0.8 10*3/uL [facility] [facility] Work Phone: Monocytes/100 WBC (Bld) 9.3 % 2.0 - 10.0 % [facility] [facility] Work Phone: Platelet distribution width (Bld) [Ratio] 16.2 % High 11.5 - 14.5 % [employer] Phone: Platelet mean volume (Bld) [Entitic vol] 7.7 fL 7.4 - 10.4 fL [employer] [facility] Work Phone: Platelets (Bld) [#/Vol] 230 10*3/uL 140 - 440 10*3/uL [employer] [facility] Work Phone: RBC (Bld) [#/Vol] 4.11 10*6/uL 3.80 - 5.2 0 10*6/uL [employer] [facility] Work Phone: WBC (Bld) [#/Vol] 12.9 10*3/uL High 3.6 - 10.7 10*3/uL [employer] [facility] Work Phone: Test Performed by [facility], [address], [place], [place] [address] [facility] Work Phone: Comprehensive Metabolic Pane lOrdered By: Naz Madera on 11-28-2020 Albumin [Mass/Vol] 3.6 g/dL 3.5 - 5.0 g/dL [facility] Work Phone: ALP (Bld) [Catalytic activity/Vol] 83 U/L 38 - 126 U/L [facility] Work Phone: ALT [Catalytic activity/Vol] 18 U/L 0 - 34 U/L [facility] Work Phone: Comment on above: The ALT [...] [Mass/Vol] 0.78 mg/dL 0.52 - 1.25 mg/dL [facility] Work Phone: EGFR IF NonAfrican Palauan 76.2 mL/min >60 [facility] Work Phone: Comment [...] fraction] 7.3 g/dL 6.3 - 8.2 g/dL [facility] Work Phone: GFR/1.73 sq M.predicted among blacks MDRD (S/P/Bld) [Vol rate/Area] 88.4 mL/min/{1.73_m2} >60 [employer] [facility] Work Phone: Glucose [Mass/Vol] 132 mg/dL High 70 - 100 mg/dL [employer] Work Phone: Interpretation and review of laboratory results Abnormal [facility] [facility] Work Phone: Potassium [Moles/Vol] 3.4 mmol/L Low 3.5 - 5.1 mmol/L [facility] Work Phone: Sodium [Moles/Vol] 139 mmol/L 135 - 145 mmol/L [facility] Work Phone: Urea nitrogen (BldV) [Mass/Vol] 16 mg/dL 7 - 20 mg/dL [facility] Work Phone: MagnesiumOrdered By: Naz Madera on 11-28-2020 Magnesium [Mass/Vol] 2.1 mg/dL 1.6 - 2 .3 mg/dL [facility] Work Phone: No Panel InformationOrdered By: Naz Madera on 11-28-2020 Test Performed by [facility], [address] [place] [address] [facility] Work Phone: POCT GlucoseOrdered By: Alina Christy on 11-28-2020 Glucose [Mass/Vol] 105 mg/dL High 70 - 100 mg/dL [facility] Work Phone: Comment on above: Test performed by gl ucose meter. Results may be 10%-15% lower than serum/plasma values. (CLIA ID [id number]) Interpretation and review of laboratory results Abnormal [employer] Work Phone: Test Performed by [facility], [address] [place], [place] [address] [facility] Work Phone: [phone] POCT GlucoseOrdered By: Solomon Madera on 11-28-2020 Glucose [Mass/Vol] 115 mg/dL High 70 - 100 mg/dL [facility] [facility] Work Phone: [phone] Comment on above: Test performed by gl ucose meter. Results may be 10%-15% lower than serum/plasma values. (CLIA ID [id number]) Interpretation and review of laboratory results Abnormal [employer] Work Phone: [phone] Test Performed by [facility], [address] [place] [address] [facility] Work Phone: PROCALCITONINOrdered By: Yaniv Madera on 11-28-2020 Interpretation See Below [employer] Work Phone: Comment on above: PCT <0.50 = Low risk of severe sepsis and/or septic shock. PCT >2.00 = High risk of severe sepsis and/or septic shock. Interpretation and review of laboratory results Abnormal [facility] [facility] Work Phone: Procalcitonin 3.18 ng/mL Abnormal <0.10 [facility] Work Phone: Test Performed by [facility], [address] [place] [address] [employer] Work Phone: COVID-19, RapidOrdered By: Eliazar Christy on 11-27-2020 SARS-CoV-2 (COVID-19) RNA VICKI+probe Ql (Unsp spec) see below [employer] Work Phone: Comment on above: Not Detected Expected Result: Not Detected _ Isothermal nucleic acid amplification performed on the [employer] System by the [facility] Laboratory Negative results do not preclude SARS-CoV-2 infection and should not be used as the sole basis for treatment or other patient management decisions. This assay was developed by [employer] and distributed under an Emergency Use Authorization (EUA) granted by the FDA for the qualitative detection of SARS-CoV-2 nucleic acid. Provider and patient fact sheets can be found at https://www.fda.gov/media/868184/download and https://www.fda.gov/media/313675/download. Test Performed by [facility], [address] , [place] [address] [employer] Work Phone: Comprehensive Metabolic Pane lOrdered By: Álvaro Christy on 11-27-2020 Albumin [Mass/Vol] 4.1 g/dL 3.5 - 5.0 g/dL [employer] Work Phone: ALP (Bld) [Catalytic activity/Vol] 86 U/L 38 - 126 U/L [facility] [facility] Work Phone: ALT [Catalytic activity/Vol] 18 U/L 0 - 34 U/L [employer] [facility] Work Phone: Comment on above: The ALT test is perf ormed by an updated assay method. Please note that the reference intervals have been changed and are now sex specific. Anion gap [Moles/Vol] 12 mmol/L 3 - 13 mmol/L [employer] [facility] Work Phone: AST [Catalytic activity/Vol] 25 U/L 15 - 46 U/L [employer] Work Phone: Bilirubin [Mass/Vol] 0.4 mg/dL 0.2 - 1 .3 mg/dL [employer] Work Phone: Calcium [Mass/Vol] 10.0 mg/dL 8.4 - 10. 4 mg/dL [facility] Work Phone: Chloride [Moles/Vol] 102 mmol/L 98 - 10 7 mmol/L [facility] Work Phone: CO2 [Moles/Vol] 26 mmol/L 22 - 30 mmol/L [facility] Work Phone: Creatinine [Mass/Vol] 0.8 mg/dL 0.52 - 1.25 mg/dL [facility] Work Phone: EGFR IF NonAfrican Palauan 74.0 mL/min >60 [employer] [facility] Work Phone: Comment on above: KDIGO guidelines [...] 8.3 g/dL High 6.3 - 8.2 g/dL [facility] [facility] Work Phone: GFR/1.73 sq M.predicted among blacks MDRD (S/P/Bld) [Vol rate/Area] 85.7 mL/min/{1.73_m2} >60 [employer] [facility] Work Phone: Glucose [Mass/Vol] 128 mg/dL High 70 - 100 mg/dL [facility] Work Phone: Interpretation and review of laboratory results Abnormal [facility] [facility] Work Phone: Potassium [Moles/Vol] 3.8 mmol/L 3.5 - 5.1 mmol/L [employer] [facility] Work Phone: Sodium [Moles/Vol] 140 mmol/L 135 - 145 mmol/L [employer] [facility] Work Phone: Urea nitrogen (BldV) [Mass/Vol] 17 mg/dL 7 - 20 mg/dL [employer] [facility] Work Phone: Test Performed by [facility], [address] , [place], [place] [address] [employer] Work Phone: Hemogram (CBC) w/Auto DiffOr dered By: Álvaro Christy on 11-27-2020 Absolute Baso # 0.0 10*3/uL 0.0 - 0.2 10*3/uL [facility] Work Phone: Absolute Neut # 10.4 10*3/uL High 1.8 - 7.0 10*3/uL [facility] Work Phone: Basophils/100 WBC (Bld) 0.3 % 0.0 - 2.0 % [facility] Work Phone: Eosinophils (Bld) [#/Vol] 0.0 10*3/uL 0.0 - 0.5 10*3/uL [facility] [facility] Work Phone: Eosinophils/100 WBC (Bld) 0.0 % Low 1.0 - 6.0 % [facility] [facility] Work Phone: Granulocytes/100 WBC (Bld) 84.3 % High 40.0 - 80.0 % [facility] Work Phone: Hematocrit (Bld) [Volume fraction] 39.7 % 35.0 - 47.0 % [facility] Work Phone: Hemoglobin.gastrointesti nal spec 1 Ql (Stl) 13.0 g/dL 11.7 - 16.0 g/dL [facility] Work Phone: Interpretation and review of laboratory results Abnormal [facility] Work Phone: Lymphocytes (Bld) [#/Vol] 0.8 10*3/uL Low 1.0 - 4.3 10*3/uL [facility] [facility] Work Phone: Lymphocytes/100 WBC (Bld) 6.2 % Low 20.0 - 40.0 % [facility] Work Phone: MCH (RBC) [Entitic mass] 27.6 pg 26. 0 - 34.0 pg [facility] Work Phone: MCHC (RBC) [Mass/Vol] 32.7 % 32.0 - 36.0 % [facility] [facility] Work Phone: MCV (RBC) [Entitic vol] 84.5 fL 79.0 - 98.0 fL [facility] Work Phone: [phone] Monocytes (Bld) [#/Vol] 1.1 10*3/uL High 0.0 - 0.8 10*3/uL [facility] [facility] Work Phone: [phone] Monocytes/100 WBC (Bld) 9.2 % 2.0 - 10.0 % [facility] [facility] Work Phone: [phone] Platelet distribution width (Bld) [Ratio] 16.2 % High 11.5 - 14.5 % [facility] Work Phone: [phone] Platelet mean volume (Bld) [Entitic vol] 7.6 fL 7.4 - 10.4 fL [facility] Work Phone: [phone] Platelets (Bld) [#/Vol] 332 10*3/uL 140 - 440 10*3/uL [employer] [facility] Work Phone: [phone] RBC (Bld) [#/Vol] 4.70 10*6/uL 3.80 - 5.2 0 10*6/uL [facility] Work Phone: WBC (Bld) [#/Vol] 12.4 10*3/uL High 3.6 - 10.7 10*3/uL [facility] Work Phone: [phone] Test Performed by [facility], [address] , [place] [address] [employer] Work Phone: Lactic Acid, PlasmaOrdered B y: Álvaro Christy on 11-27-2020 Lactate [Moles/Vol] 2 mmol/L 0.7 - 2. 0 mmol/L [facility] [facility] Work Phone: Test Performed by [facility], [address] , [place] [address] [employer] [facility] Work Phone: [phone] PROCALCITONINOrdered By: Errol Christy on 11-27-2020 Interpretation See Below [employer] [facility] Work Phone: Comment on above: PCT <0.50 = Low risk of severe sepsis and/or septic shock. PCT >2.00 = High risk of severe sepsis and/or septic shock. Interpretation and review of laboratory results Abnormal [facility] [facility] Work Phone: Procalcitonin 0.44 ng/mL Abnormal <0.10 [employer] [facility] Work Phone: Test Performed by [facility], [facility] [place] [address] [employer] Work Phone: Respiratory Panel, Molecular , with COVID-19 (Restricted: peds pts or suitable admitted adults)Ordered By: Álvaro Christy on 11-27-2020 Respiratory Panel Molecular, with COVID NEGATIVE: No targets were detected by the [employer] Upper Respiratory Pathogens PCR Panel. _ Expected Result: Not Detected The [employer] Upper Respiratory Pathogens PCR Panel can detect [...] management decisions. This assay was developed by [employer] and distributed under an Emergency Use Authorization (EUA) granted by the FDA for the qualitative detection of SARS-CoV-2 nucleic acid. Provider and patient fact sheets can be found at https://www.fda.gov /media/449077/downl oad and https://www.fda.gov /media/628817/downl oad. [employer] Work Phone: Test Performed by [email or web address] [facility] [place] [address] [employer] Work Phone: Troponin [id number] By: Dexter Christy on 11-27-2020 Troponin I.cardiac [Mass/Vol] ng/mL 0.000 - 0.034 ng/mL [facility] Work Phone: Comment on above: . Test Performed by [facility], [address] , [place], [place] [address] [employer] [facility] Work Phone: UrinalysisOrdered By: Álvaro Christy on 11-27-2020 Appearance (U) Turbid Abnormal Clear NA [facility] Work Phone: Comment on above: . Bacteria, UA Few (1-5) Abnormal Negative /[HPF] [facility] Work Phone: Comment on above: . Bilirubin Urine Negative Negative mg/dL [facility] Work Phone: Comment on above: . Color (U) YELLOW Lt. Yellow NA [facility] Work Phone: Comment on above: . Glucose, Ur Normal Normal (<70) mg/dL [facility] Work Phone: Comment on above: . Interpretation and review of laboratory results Abnormal [facility] Work Phone: Ketones Ql (U) Negative Negative mg/dL [facility] Work Phone: Comment on above: . LEUKOCYTES, UA 500 Abnormal Negative Johnnie/uL [facility] Work Phone: Comment on above: . Mucous Threads Few Negative /[LPF] [facility] Work Phone: Comment on above: . Nitrite, Urine Negative Negative NA [facility] Work Phone: Comment on above: . Occult Blood,Urine 0.2 mg/dL Abnormal Negative [facility] Work Phone: Comment on above: . pH (U) 6.5 [pH] [facility] Work Phone: Comment on above: . Protein (U) [Mass/Vol] 100 mg/dL Abnormal Negative [facility] Work Phone: Comment on above: . RBC, UA 6-10 Abnormal 0 - 2 /[HPF] [facility] Work Phone: Comment on above: . Specific [place], Urine [address] [facility] Work Phone: Comment on above: . Squam Epithel, UA 3-5 3 - 5 /[HPF] [facility] Work Phone: Comment on above: . Urobilinogen, Urine Normal Normal ( 0-1) mg/dL [facility] Work Phone: Comment on above: . Volume 8-12 ml [facility] Work Phone: Comment on above: . WBC, UA 26-50 Abnormal 0 - 5 /[HPF] [facility] Work Phone: Comment on above: . Test Performed by [facility], [address] [place] [address] Work Phone: XR CHEST PORTABLEOrdered By: Álvaro Christy on 11-27-2020 Patient Name: UBALDO ARANGO Diagnostic Radiology ACCESSION EXAM DATE/TIME PROCEDURE ORDERING PROVIDER [id number] 11/27/2020 08:20 EDT CR Chest Portable RONAL ALDRIDGE MD, DONALD L CPT code 61798 Reason For Exam (CR Chest Portable) fever [...] RISA Transcribed Date and Time: 11/27/2020 8:56 [facility] Work Phone: [facility] - 11/27/2020 8:56 AM EDT Patient Name: UBALDO ARANGO Diagnostic Radiology ACCESSION EXAM DATE/TIME PROCEDURE ORDERING PROVIDER [id number] 11/27/2020 08:20 EDT CR Chest Portable RONAL ALDRIDGE MD, DONALD L CPT code 07874 Reason For Exam (CR Chest Portable) fever [...] RISA Transcribed Date and Time: 11/27/2020 8:56 [facility] Work Phone: Vital Signs Date Time Vital Sign Value Performing Clinician Lulú rogers 10-21-2024 18:44-0400 Diastolic blood pressure 86 mm[Hg] Nilo Kennedy MD Work Phone: [facility] [employer] 10-21-2024 18:44-0400 Heart rate 79 /min Nilo Kennedy MD Work Phone: [facility] [employer] 10-21-2024 18:44-0400 Respiratory rate 24 /min Nilo Kennedy MD Work Phone: [facility] [employer] 10-21-2024 18:44-0400 SaO2% (BldA) [Mass fraction] 95 % Nilo Kennedy MD Work Phone: [facility] [employer] 10-21-2024 18:44-0400 Systolic blood pressure 135 mm[Hg] Nilo Kennedy MD Work Phone: [facility] [employer] 10-21-2024 13:27-0400 Body mass index (BMI) [Ratio] 31.09 kg/m2 Nilo Kennedy MD Work Phone: [facility] 10-21-2024 13:27-0400 Body temperature 96.91 [degF] Nilo Kennedy MD Work Phone: [facility] 10-21-2024 13:27-0400 Body weight 77.11 kg Nilo Kennedy MD Work Phone: [facility] 04-18-2022 19:52-0400 Body temperature 97.81 [degF] Nilo Kennedy MD Work Phone: [facility] 04-18-2022 19:52-0400 Diastolic blood pressure 106 mm[Hg] Nilo Kennedy MD Work Phone: [facility] 04-18-2022 19:52-0400 Heart rate 69 /min Nilo Kennedy MD Work Phone: [facility] 04-18-2022 19:52-0400 Respiratory rate 17 /min Nilo Kennedy MD Work Phone: [facility] 04-18-2022 19:52-0400 SaO2% (BldA) [Mass fraction] 92 % Nilo Kennedy MD Work Phone: [facility] 04-18-2022 19:52-0400 Systolic blood pressure 175 mm[Hg] Nilo Kennedy MD Work Phone: [facility] 04-13-2022 14:11-0400 Body height 157.5 cm Nilo Kennedy MD Work Phone: [facility] 04-10-2022 21:41-0400 Body mass index (BMI) [Ratio] 30.58 kg/m2 Nilo Kennedy MD Work Phone: [facility] 04-10-2022 21:41-0400 Body weight 75.84 kg Nilo Kennedy MD Work Phone: [facility] 12-03-2020 00:05-0400 Body temperature 97.7 [degF] Álvaro Christy MD Work Phone: [facility] Work Phone: 12-03-2020 00:05-0400 Diastolic blood pressure 66 mm[Hg] Álvaro Christy MD Work Phone: [facility] Work Phone: 12-03-2020 00:05-0400 Heart rate 63 /min Álvaro Christy MD Work Phone: [facility] Work Phone: 12-03-2020 00:05-0400 Respiratory rate 30 /min Álvaro Christy MD Work Phone: [facility] Work Phone: 12-03-2020 00:05-0400 SaO2% (BldA) [Mass fraction] 95 % Álvaro Christy MD Work Phone: [facility] Work Phone: 12-03-2020 00:05-0400 Systolic blood pressure 144 mm[Hg] Álvaro Christy MD Work Phone: [facility] Work Phone: 12-01-2020 15:49-0400 Body height 157.5 cm Álvaro Christy MD Work Phone: [facility] Work Phone: 12-01-2020 04:47-0400 Body mass index (BMI) [Ratio] 33.91 kg/m2 Álvaro Christy MD Work Phone: [facility] Work Phone: 12-01-2020 04:47-0400 Body weight 84.09 kg Álvaro Christy MD Work Phone: [facility] Work Phone: Encounters Encounter Date Encounter Type Care Provider Facility Start: 06-01-2025 ambulatory Wale WHEATLEY Faci lity:[facility] Start: 03-01-2025 ambulatory Arden WHEATLEY Facil ity:[facility] Start: 02-17-2025 End: 02-17-2025 ambulatory Dajuan Marks RN [facility] Clinical Communication Start: 02-17-2025 End: 02-17-2025 Patient encounter procedure Dajuan Marks RN [facility] Clinical Communication Start: 01-27-2025 ambulatory Wale Cadena DIONI Faci lity:[facility] Start: 12-18-2024 End: 12-18-2024 ambulatory Wale WHEATLEY [facility] Work Phone: Start: 12-18-2024 End: 12-18-2024 Departed Referred Wale Cadena -[facility] [place] [facility] [address] Start: 12-18-2024 Registered Referred Wale Sherrelledison [place] [address] Start: 12-18-2024 End: 12-18-2024 ambulatory Wale Sherrelljose DIONI Facility:[facility] Start: 11-30-2024 End: 11-30-2024 ambulatory Wale Wynneedison WHEATLEY [facility] Work Phone: Start: 11-30-2024 End: 11-30-2024 Departed Referred Wale Wynneedison [place] - [address] Start: 11-30-2024 End: 11-30-2024 ambulatory Wale WHEATLEY Facility:[facility] Start: 11-28-2024 End: 11-28-2024 ambulatory Bruna Nunez RN [facility] Clinical Communication Start: 11-28-2024 End: 11-28-2024 Patient encounter procedure Bruna Nunez RN [facility] Start: 11-27-2024 End: 11-27-2024 ambulatory Ayleen Johnson RN [facility] Clinical Communication Start: 11-27-2024 End: 11-27-2024 Patient encounter procedure Ayleen Johnson RN [facility] Clinical Communication Start: 11-23-2024 End: 11-23-2024 ambulatory Wale Sherrelledison WHEATLEY [facility] Work Phone: Start: 11-23-2024 End: 11-23-2024 Departed Referred Wale Sherrelljose [place] [facility] [address] Start: 11-23-2024 Registered Referred Wale Christiansonworth - [address] Start: 11-23-2024 End: 11-23-2024 ambulatory Wale WHEATLEY Facility:[facility] Start: 10-21-2024 End: 10-21-2024 Emergency department patient visit Nilo Kennedy MD Work Phone: [facility] ED Comment on above: Acute cough (Primary Dx); Viral upper respiratory tract infection Start: 07-30-2024 ambulatory Wale WHEATLEY Faci lity:[facility] Start: 07-11-2024 End: 07-11-2024 ambulatory Jyoti Forte RN [facility] Start: 07-11-2024 End: 07-11-2024 Patient encounter procedure Jyoti Forte RN [facility] Start: 07-01-2024 End: 07-01-2024 ambulatory Wale WHEATLEY Facility:[facility] Start: 06-17-2024 End: 06-17-2024 ambulatory Wale WHEATLEY Facility:[facility] Start: 10-24-2023 End: 10-24-2023 ambulatory [facility] Work Phone: Start: 10-24-2023 End: 10-24-2023 Departed Referred [facility] [place] [facility] [address] Start: 09-27-2023 End: 09-27-2023 ambulatory [facility] Work Phone: Start: 09-27-2023 End: 09-27-2023 Departed Referred [facility] [place] - [address] Start: 09-20-2023 End: 09-20-2023 ambulatory [facility] Work Phone: Start: 09-20-2023 End: 09-20-2023 [facility]ed [facility] [place] [facility] [address] Start: 09-20-2023 Registered Referred [facility] [place] [facility] [address] Start: 08-29-2023 End: 08-29-2023 ambulatory [facility] Work Phone: Start: 08-29-2023 End: 08-29-2023 Departed Referred [facility] [place] [facility] [address] Start: 08-29-2023 Registered Referred [facility] [place] [facility] [address] Start: 08-26-2023 End: 08-26-2023 ambulatory [facility] Work Phone: Start: 08-26-2023 End: 08-26-2023 Departed Referred [facility] [place] [facility] [address] Start: 07-31-2023 End: 07-31-2023 ambulatory [facility] Work Phone: Start: 07-31-2023 End: 07-31-2023 Departed Referred [facility] [place] [facility] [address] Start: 07-31-2023 Registered Referred [facility] [place] [facility] [address] Start: 05-27-2023 End: 05-27-2023 ambulatory [facility] Work Phone: Start: 05-27-2023 End: 05-27-2023 Departed Referred [facility] [place] [facility] [address] Start: 05-23-2023 End: 05-23-2023 ambulatory [facility] Work Phone: Start: 05-23-2023 End: 05-23-2023 Departed Referred [facility] [place] [facility] [address] Start: 05-23-2023 Registered Referred [facility] [place] [facility] [address] Start: 04-26-2023 End: 04-26-2023 Departed Referred [facility] [place] [facility] [address] Start: 04-26-2023 Registered Ref[facility] [place] [facility] [address] Start: 04-24-2023 End: 04-24-2023 ambulatory [facility] Work Phone: Start: 04-24-2023 End: 04-24-2023 Departed Referred [facility] [place] [facility] [address] Start: 04-24-2023 Registered Ref[address] [facility] [place] [facility] [address] Start: 03-20-2023 End: 03-20-2023 ambulatory [facility] Work Phone: Start: 03-20-2023 End: 03-20-2023 Departed Referred [facility] [place] [facility] [address] Start: 03-06-2023 End: 03-06-2023 ambulatory [facility] Work Phone: Start: 03-06-2023 End: 03-06-2023 Departed Referred [facility] [place] [facility] [address] Start: 03-06-2023 Registered Referred [facility] [place] [facility] [address] Start: 01-25-2023 End: 01-25-2023 ambulatory [facility] Work Phone: Start: 01-25-2023 End: 01-25-2023 Departed Referred [facility] [place] [facility] [address] Start: 01-25-2023 Registered Ref[facility] [place] [facility] [address] Start: 01-24-2023 End: 01-24-2023 ambulatory [facility] Work Phone: Start: 01-24-2023 End: 01-24-2023 Departed Referred [facility] [place] [facility] [address] Start: 01-22-2023 End: 01-22-2023 ambulatory [facility] Work Phone: Start: 01-22-2023 End: 01-22-2023 Departed Referred [facility] [place] - [address] Start: 01-22-2023 Registered Referred [facility] [place] [facility] [address] Start: 12-18-2022 End: 12-18-2022 ambulatory [facility] Work Phone: Start: 12-18-2022 End: 12-18-2022 Departed Referred [facility] [place] - [address] Start: 10-24-2022 End: 10-24-2022 ambulatory [facility] Work Phone: Start: 10-24-2022 End: 10-24-2022 Departed Referred [facility] [place] - [address] Start: 10-24-2022 Registered Referred [facility] [place] [facility] [address] Start: 10-22-2022 End: 10-22-2022 ambulatory [facility] Work Phone: Start: 10-22-2022 End: 10-22-2022 Departed Referred [facility] [place] [facility] [address] Start: 09-24-2022 End: 09-24-2022 ambulatory [facility] Work Phone: Start: 09-24-2022 End: 09-24-2022 Departed Referred [facility] [place] [facility] [address] Start: 09-24-2022 Registered Referred [facility] [place] [facility] [address] Start: 09-20-2022 End: 09-20-2022 ambulatory [facility] Work Phone: Start: 09-20-2022 End: 09-20-2022 Departed Referred [facility] [place] [facility] [address] Start: 07-27-2022 End: 07-27-2022 ambulatory [facility] Work Phone: Start: 07-27-2022 End: 07-27-2022 Departed Referred [facility] [place] [facility] [address] Start: 07-27-2022 Registered Referred [facility] [place] [facility] [address] Start: 07-26-2022 End: 07-26-2022 ambulatory [facility] Work Phone: Start: 07-26-2022 End: 07-26-2022 Departed Referred [facility] [place] [facility] [address] Start: 04-27-2022 End: 04-27-2022 ambulatory [facility] Work Phone: Start: 04-27-2022 End: 04-27-2022 Departed Referred [facility] [place] [facility] [address] Start: 04-26-2022 End: 04-26-2022 ambulatory [facility] Work Phone: Start: 04-26-2022 End: 04-26-2022 Departed Referred [facility] [place] [facility] [address] Start: 04-26-2022 Registered Referred [facility] [place] [facility] [address] Start: 04-23-2022 End: 04-23-2022 Departed Referred [facility] [place] - [address] Start: 04-23-2022 Registered Referred [facility] [place] [facility] [address] Start: 04-19-2022 End: 04-19-2022 ambulatory [facility] Work Phone: Start: 04-19-2022 End: 04-19-2022 Departed Referred [facility] [place] [facility] [address] Start: 04-19-2022 [facility] [address] Start: 04-11-2022 End: 04-18-2022 Evaluation and management of inpatient Start: 04-10-2022 End: 04-18-2022 Evaluation and management of inpatient Nilo Kennedy MD Work Phone: [facility] 2E TELEMETRY Comment on above: Septicemia (HCC) (Pr imary Dx); Hypoxia; Acute cystitis without hematuria; Pneumonia of right middle lobe due to infectious organism Start: 03-26-2022 End: 03-26-2022 ambulatory [facility] Work Phone: Start: 03-26-2022 End: 03-26-2022 Departed Referred [facility] [place] [facility] [address] Start: 02-21-2022 End: 02-21-2022 Departed Referred [facility] [place] - [address] Start: 01-30-2022 End: 01-30-2022 Departed Referred [facility] [place] - [address] Start: 01-25-2022 End: 01-25-2022 Departed Referred [facility] [place] - [address] Start: 12-25-2021 End: 12-25-2021 Departed Referred [facility] [place] - [address] Start: 12-25-2021 Registered Referred [facility] [place] - [address] Start: 12-12-2021 End: 12-12-2021 Departed Referred [facility] [place] - [address] Start: 10-30-2021 End: 10-30-2021 Departed Referred [facility] [place] - [address] Start: 10-30-2021 Registered Referred [facility] [place] - [address] Start: 09-25-2021 End: 09-25-2021 Departed Referred [facility] [place] - [address] Start: 09-20-2021 End: 09-20-2021 Departed Referred [facility] [place] - [address] Start: 09-20-2021 Registered Referred [facility] [place] - [address] Start: 09-14-2021 End: 09-14-2021 Departed Referred [facility] [place] - [address] Start: 09-14-2021 [facility] [address] Start: 08-31-2021 End: 08-31-2021 [facility] Start: 08-31-2021 [facility] [address] Start: 08-24-2021 End: 08-24-2021 Departed Referred [facility] [place] - [address] Start: 08-24-2021 [facility] [address] Start: 08-09-2021 End: 08-09-2021 [facility] [address] Start: 11-27-2020 End: 12-03-2020 Evaluation and management of inpatient Álvaro Christy MD Work Phone: [facility] 2E TELEMETRY Comment on above: Urinary tract infect ion with hematuria, site unspecified (Primary Dx); Chronic pain syndrome Procedures Date Procedure Procedure Detail Performing Clinician Start: 11-30-2024 Ethosuximide measurement Wale WHEATLEY Comment on above: Detection Limit = 10 Performed at: [address] [id number] Director: Santosh Salvador MD, Phone: [phone] Start: 11-23-2024 Urnls dip stick/tabl et reagent auto microscopy Wale WHEATLEY Start: 11-23-2024 Urine culture Wale garcia OLS Start: 10-21-2024 Radiologic exam ches t single view Nilo Kennedy MD Work Phone: Start: 10-21-2024 Basic metabolic pane l calcium total Nilo Kennedy MD Work Phone: Start: 10-21-2024 SARS-COV-2, FLU A/B, AND RSV COMBO Nilo Kennedy MD Work Phone: Start: 07-31-2023 Urine culture Start: 05-22-2023 Urine culture Start: 03-06-2023 Urine culture Start: 04-18-2022 Assay of magnesium Jessee Mcleod [facility] Work Phone: Start: 04-18-2022 BASIC METABOLIC PANE L W/ REFLEX TO MG FOR LOW K Pricila Mcleod [facility] Work Phone: Start: 04-17-2022 Assay of magnesium Jessee Mcleod [facility] Work Phone: Start: 04-17-2022 BASIC METABOLIC PANE L W/ REFLEX TO MG FOR LOW K Pricila Mcleod [facility] Work Phone: Start: 04-17-2022 Manual Differential panel - Blood Pricila Mcleod [facility] Work Phone: Start: 04-16-2022 Basic metabolic pane l calcium total Moshe Rich SAMAYOA Work Phone: Start: 04-15-2022 Basic metabolic pane l calcium total Moshe Rich SAMAYOA Work Phone: Start: 04-14-2022 BASIC METABOLIC PANE L W/ REFLEX TO MG FOR LOW K Pricila Mcleod [facility] Work Phone: Start: 04-14-2022 Blood count complete auto&auto difrntl wbc Pricila Mcleod [facility] Work Phone: Start: 04-14-2022 Manual Differential panel - Blood Pricila Mcleod [facility] Work Phone: Start: 04-12-2022 Culture bacterial bl ood aerobic w/id isolates 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 - [facility] Work Phone: Start: 04-12-2022 CULTURE, BLOOD 1 Eran Mcleod 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 [employer] [facility] Work Phone: Start: 04-12-2022 BASIC METABOLIC PANE L W/ REFLEX TO MG FOR LOW K 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 - [facility] Work Phone: Start: 04-12-2022 Blood count complete auto&auto difrntl wbc 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 [employer] [facility] Work Phone: Start: 04-12-2022 Drug screen quantita tive vancomycin 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 [employer] [facility] Work Phone: Start: 04-12-2022 RBC morphology findi ng Nom (Bld) 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 [employer] [facility] Work Phone: Start: 04-11-2022 ADD ON LAB TEST Genoveva Mcleod 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 [employer] [facility] Work Phone: Start: 04-11-2022 Radiologic exam swal low function contrast study 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 [employer] [facility] Work Phone: Start: 04-11-2022 PETROLEUM LABORATORY TECHNICIAN MODIFIED BARIUM SWALLOW STUDY (MBS) 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 [employer] [facility] Work Phone: Start: 04-11-2022 Assay of magnesium Jessee Mcleod [facility] [employer] [facility] Work Phone: Start: 04-11-2022 BASIC METABOLIC PANE L W/ REFLEX TO MG FOR LOW K 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 [employer] [facility] Work Phone: Start: 04-11-2022 Speech and language therapy regime Pricila Harsha 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 - [facility] Work Phone: Start: 04-11-2022 ADD ON LAB [...] Special diagnostic procedures Pricila Mcleod APRN - [facility] Work Phone: Start: 12-02-2020 Drug screen quantita tive vancomycin Naz Madera MD Work Phone: Start: 12-02-2020 BASIC METABOLIC PANE L W/ REFLEX TO MG FOR LOW K Pricila Mckeon [facility] Work Phone: Start: 12-02-2020 Blood count complete auto&auto difrntl wbc Pricila Mcleod APRN - [facility] Work Phone: Start: 12-01-2020 BASIC METABOLIC PANE L W/ REFLEX TO MG FOR LOW K Pricila Mcleod [facility] - [facility] Work Phone: Start: 12-01-2020 Blood count complete auto&auto difrntl wbc Pricila Mcleod [facility] Work Phone: Start: 12-01-2020 Manual Differential panel - Blood Pricila Mcleod [facility] Work Phone: Start: 11-30-2020 Drug screen quantita tive vancomycin Naz Madera MD Work Phone: Start: 11-30-2020 BASIC METABOLIC PANE L W/ REFLEX TO MG FOR LOW K Pricila Mcleod [facility] Work Phone: Start: 11-30-2020 Blood count complete auto&auto difrntl wbc Pricila Mcleod [facility] Work Phone: Start: 11-30-2020 Manual Differential panel - Blood Pricila Mcleod [facility] Work Phone: Start: 11-29-2020 CULTURE, BLOOD 1 [...] Detail Author Start: 04-05-2025 Influenza vaccination [facility] Start: 08-05-2024 Medicare Advantage Annual Wellness Visit Medicare Advantage Annual Wellness Visit [facility] Start: 2024 RSV Immunization for Adults (1 - 1-dose 75+ series) RSV Immunization for Adults (1 - 1-dose 75+ series) [facility] Start: 04-05-2024 COVID-19 Vaccine ( season) COVID-19 Vaccine ( season) [facility] Start: 04-05-2024 COVID-19 Vaccine ( season) COVID-19 Vaccine ( season) [facility] Start: 04-05-2024 Influenza vaccination Influenza Vacc ine (#1) [facility] Start: 11-30-2023 Diabetes mellitus screening Diabetes Screening [facility] Start: 04-26-2023 End: 04-26-2023 [facility] Start: 04-05-2022 Influenza vaccination Flu vaccine (# 1) [facility] Start: 12-02-2021 Creatinine measurement Creatinine mo nitoring [facility] Work Phone: Start: 12-02-2021 Potassium monitoring Potassium monit oring [facility] Work Phone: Start: 04-05-2021 Influenza vaccination Flu vacc ine (Season Ended) [facility] Work Phone: Start: 2014 Pneumococcal Vaccine : 65+ Years (1 of 1 - PCV) Pneumococcal Vaccine: 65+ Years (1 of 1 - PCV) [facility] Start: 1999 Pneumococcal Vaccine : 50+ Years (1 of 1 - PCV) Pneumococcal Vaccine: 50+ Years (1 of 1 - PCV) [facility] Start: 1999 Zoster Vaccines (1 of 2) Zoster Vacc yvette (1 of 2) [facility] Start: 1968 DTaP/Tdap/Td vaccine (1 - Tdap) DTaP/Tdap/Td vaccine (1 - Tdap) [facility] Start: 1968 DTaP/Tdap/Td Vaccine s (1 - Tdap) DTaP/Tdap/Td Vaccines (1 - Tdap) [facility] Start: 1967 Hepatitis C screening Hepatitis C Sc reening [facility] Start: 1965 COVID-19 Vaccine (1) COVID-19 Vaccin e (1) [facility] Work Phone: Start: 1961 Depression Screening Depression Scre ening [facility] Start: 1949 COVID-19 Vaccine (#1) COVID-19 Vacci ne (#1) [facility] Start: 1949 Screening for malign ant neoplasm of colon [facility] Start: 1949 Screening for osteoporosis Bone Density Scan [facility] Start: 1949 Thyroid stimulating hormone measurement TSH Level [facility] Basic Metabolic Pane l w/ Reflex to MG Basic Metabolic Panel w/ Reflex to MG Lab Routine Daily until discontinued starting 11/30/2020, 3 completed [facility] Work Phone: Comment on above: Daily until disconti nued starting 11/30/2020, 3 completed End: 04-19-2022 Basic Metabolic Panel w/ Reflex to MG Basic Metabolic Panel w/ Reflex to MG Lab Routine Daily for 3 Days starting 04/17/2022 until 04/19/2022, 2 completed [facility] Work Phone: Comment on above: Daily for 3 Days sta rting 04/17/2022 until 04/19/2022, 2 completed CBC W Auto Different ial panel - Blood CBC Auto Differential Lab Routine Daily until discontinued starting 11/30/2020, 3 completed [facility] Work Phone: Comment on above: Daily until disconti nued starting 11/30/2020, 3 completed End: 04-19-2022 CBC W Auto Differential panel - Blood CBC with Auto Differential Lab Routine Daily for 3 Days starting 04/17/2022 until 04/19/2022, 2 completed [facility] Work Phone: Comment on above: Daily for [...] Blood Microbiology STAT 11/29/2020 5:47 PM EDT [facility] Work Phone: End: 04-11-2022 Microscopic observation [Identifier] [...] Category Payer Medicare HMO [employer] [id number] 2024 Self-pay [id number] 2024 Unknown [id number] 2020 Private Health Insurance [id number] 1949 Unknown [id number] Medicare Private Health Insurance Unknown [id number] Unknown [id number] Unknown [id number] Unknown [id number] Unknown [id number] Unknown [id number] Unknown [id number] Unknown [id number] Unknown [id number] Social History Date Type Detail Facility Start: 12-01-2020 End: 12-02-2020 Tobacco smoking status [facility] End: 08-05-1979 History of tobacco use Current [facility] Start: 12-02-2020 End: 04-12-2022 Cigarettes smoked current (pack per day) - Reported [facility] Work Phone: Start: 12-01-2020 End: 12-02-2020 Tobacco use and exposure Never used [facility] Start: 1950 Sex Assigned At Not on file S [place] Work Phone: Exposure to SARS-CoV -2 (event) Not sure [facility] Start: 1950 Sex Assigned At Female [facility] End: 08-05-1979 History of tobacco use [facility]igarette [facility]: Start: 03-31-2022 End: 04-10-2022 Exposure to SARS-CoV-2 (event) Unable to assess [facility] Start: 04-12-2022 Tobacco use panel [facility] Start: 03-05-2022 Sex Female (finding) [facility] Tobacco smoking stat us [facility] Unknown if ever smoked [facility] Work Phone: Clinical Notes 12-02-2020 to 02-17-2025 Telephone Encounter - Dajuan Marks RN - 02/17/2025 7:05 PM EDTTelephone Encounter - Dajuan Marks RN - 02/17/2025 7:05 PM EDTTelephone Encounter - Bruna Nunez RN - 11/28/2024 4:26 PM EDT Note Date & Type Note Facility 02-17-2025 Telephone encounter Note S: Yennifer DRISCOLL from [facility] spoke with [facility] nurse regarding medication refill. B: [...] medicines) Protocols used: Medication Refill and Renewal Bulo-[id number]-BX [facility] 02-17-2025 Miscellaneous Notes S: Yennifer DRISCOLL from [facility] spoke with [facility] nurse regarding medication refill. B: Onset of symptoms/concern 02/17/2025. A: Yennifer DRISCOLL from [facility] requesting a medication refill for Hydrocodone 5-325 [...] medicines) Protocols used: Medication Refill and Renewal Itzw-UOSZS-SJ documented in this encounter [facility] 11-28-2024 Telephone encounter Note S: The MEDICAL CONSULTANT is 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 R: Page to Dr. Cadena and he will call the MEDICAL CONSULTANT now. Reason for Disposition Caller has URGENT medicine question about med that PCP or specialist prescribed and triager unable to answer question Protocols used: Medication Question Edcc-JAOLR-LI [facility] 11-28-2024 Miscellaneous Notes S: The MEDICAL CONSULTANT is 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 R: Page to Dr. Cadena and he will call the MEDICAL CONSULTANT now. Reason for Disposition Caller has URGENT medicine question about med that PCP or specialist prescribed and triager unable to answer question Protocols used: Medication Question Vdnl-CQEMQ-XQ documented in this encounter [facility] 11-27-2024 Telephone encounter Note S: Shyanne with [facility] spoke with CAC nurse regarding medication interaction B: Onset of symptoms/concern n/a A: Patient prescribed IV imipenem, supposed to start tonight. Pharmacy called facility and stated that there is an interaction with this medication with Depakote. May increase the likeliness of seizures. R: Paged Dr Cadena with above message from [facility] and Shyanne with [facility] #[phone]. Dr Cadena called [facility]. No further orders at this time. Reason for Disposition [1] Caller has URGENT medicine question about med that PCP or specialist prescribed AND [2] triager unable to answer question Protocols used: Medication Question Grxm-TWCJQ-DX [facility] 11-27-2024 Miscellaneous Notes S: Shyanne with [facility] spoke with [facility] nurse regarding medication interaction B: Onset of symptoms/concern n/a A: Patient prescribed IV imipenem, supposed to start tonight. Pharmacy called [facility] and stated that there is an interaction with this medication with Depakote. May increase the likeliness of seizures. R: Paged Dr Cadena with above message from [facility] and Shyanne with [facility] #[phone]. Dr Cadena called [facility]. No further orders at this time. Reason for Disposition [1] Caller has URGENT medicine question about med that PCP or specialist prescribed AND [2] triager unable to answer question Protocols used: Medication Question Fllg-GPLWX-WQ documented in this encounter [facility] 10-21-2024 Emergency department Note Gave report and discharge instructions to Álvaro bo. Pt leaves ED in ambulance. [facility] 10-21-2024 Emergency department Note Gave report and discharge instructions to Álvaro bo. Pt leaves ED in ambulance. Called report to Lilia at [facility]. EMERGENCY DEPARTMENT ENCOUNTER Pt Name: Ubaldo Arango [...] She is sent to us from her group home because of increased cough, sneezing, congestion. Patient [...] Report Dictated on Electronically Signed By: Arden Rbolero MD Electronically Signed Date/Time: 10/21/2024 2:42 PM [...] In compliance with this authorization, please visit www.fda.gov/media/441410/download or www.fda.gov/media/110752/download to access the applicable information sheets. MAGNESIUM [...] PM PATIENT REFERRED TO: Wale Cadena [address] [facility] [address] [facility] [address] Call in 2 days DISCHARGE [...] MD 10/21/24 1536 documented in this encounter [facility] 10-21-2024 Emergency department Note Called report to Lilia at [facility]. [facility] 10-21-2024 Physician Emergency department Note EMERGENCY [...] She is sent to us from her group home because of increased cough, sneezing, congestion. Patient [...] In compliance with this authorization, please visit www.fda.gov/media/074336/download or www.fda.gov/media/860857/download to access the applicable information sheets. MAGNESIUM [...] PM PATIENT REFERRED TO: Wale Cadena [address] [facility] [address] [facility] [address] Call in 2 days DISCHARGE [...] Medicine Provider Nilo Kennedy MD 10/21/24 1536 [facility] 07-11-2024 Telephone encounter Note S: Barb, Nurse at [facility] [phone] spoke with [facility] nurse regarding medication problem B: Onset of symptoms/concern 07/11/24 A: [facility] patient needs refill of Hydrocodone 5/325 mg one by mouth daily. [facility] pharmacy is [facility] (F) R: Advised Barb that medication is a narcotic and will have to wait until office is open. Barb understands care advice. No further needs at this time. Babr instructed to call back with new or worsening symptoms. Reason for Disposition Caller requesting a CONTROLLED substance prescription refill (e.g., narcotics, ADHD medicines) Protocols used: Medication Refill and Renewal [id number]-CQLWO-GG [facility] 07-11-2024 Miscellaneous Notes S: Barb, Nurse at [facility] [phone] spoke with [facility] nurse regarding medication problem B: Onset of symptoms/concern 07/11/24 A: [facility] patient needs refill of Hydrocodone 5/325 mg one by mouth daily. [facility] pharmacy is [facility] ([facility]) R: Advised Barb that medication is a narcotic and will have to wait until office is open. Barb understands care advice. No further needs at this time. Barb instructed to call back with new or worsening symptoms. Reason for Disposition Caller requesting a CONTROLLED substance prescription refill (e.g., narcotics, ADHD medicines) Protocols used: Medication Refill and Renewal Nlch-QCHNT-AQ documented in this encounter [facility] 04-18-2022 History of Presen t illness Narrative Planned for [facility]; active discharge order in place. No new nutrition interventions at this time. Pt continues on Minced and Moist, 2g Na, mildly thick liquids. Pt on appropriate ONS Magic cup BID, which complies with pt's liquid diet order consistency. Magic cup provides 290 kcals, 9 g protein per serving. Continue with current interventions. RD will follow until discharge. Report called to Bill at [facility] Images from the original note were not included. Palliative Progress Note Chief Complaint: Ubaldo Arango is a 71 y.o. female with chief complaint of fevers with seizure on 04-08. Palliative care is actively following this patient. Assessment/Plan Assessment/Plan Goals of care Pt is not able to make her own decisions. [place] Probate court confirmed guardianship(person only not financial) naming Cleveland Arango [phone]( brother) as 1st and Zachary Arango [phone]( sister in law) as 2nd. Will place this in the chart. Pt resides at [facility], plans for her to return when medially [...] this admission 71 yr old female from [facility] presented to the ER via EMS for [...] Comments: Unable to assess Psychiatric: Comments: calm Morenci Symptom Assessment Score Morenci Score Pain Score 0 Tiredness Score 0 [...] ROM Expected Impact [] POA Clarified [] LITHOGRAPHIC PROOFER Avoided [] Nursing Function [x] Provider Function for [Harsha CARTER] [] Orders Placed [] Symptom Assessment [] Patient Experience [] Patient / Caregiver Conversation Patient is refusing blood work this morning. Stool collected and sent to lab. Appeared more soft than loose. Pricila Mcleod NP notified. Speech Language Pathology Facility/Department: [facility] TELEMETRY Dysphagia Treatment Note NAME: Ubaldo Arango [...] Time Session Ended: 11:14 am Mary Mcgrath PETROLEUM LABORATORY TECHNICIAN Student A mask and gloves were worn [...] ROM Expected Impact [] POA Clarified [] LITHOGRAPHIC PROOFER Avoided [] Nursing Function [] Provider Function [...] not able to make her own decisions. [place] Probate court confirmed guardianship(person only not financial) naming Cleveland Arango [phone]( brother) as 1st and Zachary Arango [phone]( sister in law) as 2nd. Will place this in the chart. Pt resides at [facility], plans for her to return when medially [...] 1 Subjective/Events 71 yr old female from [facility] presented to the ER via EMS for [...] Comments: Unable to assess Psychiatric: Comments: calm Morenci Symptom Assessment Score Morenci Score Pain Score 0 Tiredness Score 0 [...] note were not included. Hospitalist Progress Note 04/17/[id number]: Please reach me on Perfect Serve patient care issues. [phone]: Please page [facility] night Hospitalist for any issues. Subjective: Admit Date: 04/10/2022 PCP: Wale Cadena MD Room#: 249/2492 Interval History: Pt developed loose stools last night Large "blow out" +diarrhea today Didn't want to eat lunch Afebrile ROS unobtainable d/t mentation WBC 14.3K ADULT DIET; Dysphagia - Minced and Moist; Low Sodium (2 gm); Mildly Thick ([place]) ADULT ORAL NUTRITION SUPPLEMENT; Lunch, Dinner; Frozen [...] (HCC) Smoker LABS: CBC: Recent Labs 04/16/22 0504/17/22 1039 WBC 14.2* 14.3* RBC 3.98 3.72* [...] 04/12- 08/06 sets staph epi (likely contaminant) Diarrhea, worsening [...] CNP Division of Hospitalist Medicine Inpatient Medical Services/[facility] Patient is refusing lab work to be drawn as well as vital signs to be obtained. I made Dr. Whyte with [facility] aware. Images from the original note were not included. [facility] - Infectious Diseases Attending Progress Note [...] (36.1 C) Temporal 74 18 94 % 04/15/222035 (!) 141/73 96.9 F (36.1 C) Temporal [...] 8.1 9.0* Lab Results Component Value Date/Time [address] 12/02/2020 10:32 AM No results found for: [...] note were not included. Hospitalist Progress Note 04/16/[id number]: Please reach me on [facility] Serve patient care issues. [phone]: Please page [facility] night Hospitalist for any issues. Subjective: Admit Date: 04/10/2022 PCP: Wale Cadena MD Room#: 249/2492 Interval History: No overnight issues per nursing Smiling/holding sippy cup and watching television Nods yes/no; blowing kisses Appears comfortable ROS unobtainable d/t cognitive impairment Afebrile ADULT DIET; Dysphagia - Minced and Moist; Low Sodium (2 gm); Mildly Thick ([place]) ADULT ORAL NUTRITION SUPPLEMENT; Lunch, Dinner; Frozen [...] disorder (HCC) Smoker LABS: CBC: Recent Labs 04/14/2224804/16/22 0519 WBC 9.8 14.2* RBC 3.55* 3.98 HGB 10.8* 12.0 HCT 32.2* 36.4 MCV 90.9 91.4 RDW 15.4* 15.7* PLT 288 410 BMP: Recent Labs 04/14/2224804/15/2242104/16/22 0519 NA 146* 142 141 K 3.8 [...] planning: TBD TYRON Johnston CNP [facility] Medicine Inpatient Medical Services/[facility] Speech Language Pathology Facility/Department: [facility] 2E TELEMETRY Dysphagia Treatment Note NAME: [...] Turning her head to her milk and [place] juice. [] Goal met [x] Progressing as [...] with meals. P: Con't POC. ALEJANDRO Carcamo M.A.CCC/PETROLEUM LABORATORY TECHNICIAN Time session ended: 853 Total session minutes: [...] Moist; Low Sodium (2 gm); Mildly Thick ([place]) ADULT ORAL NUTRITION SUPPLEMENT; Lunch, Dinner; Frozen [...] CHOL No results found for: PHART, PO2ART, CAV8YJO No results for input(s): INR in the [...] from the original note were not included. [facility] - Infectious Diseases Attending Progress [...] Labs: Component Value Date/Time NA 146 (H) 04/14/2022 0249 K 3.8 04/14/2022 024 CL 117 (H) 04/14/2022 0249 CO2 24 04/14/2022248 BUN 20 04/14/2022248 CREATININE 0.67 04/14/2022 024 GLUCOSE 98 04/14/2022 024 CALCIUM 8.1 (L) 04/14/2022248 PROT 7.3 04/10/20222058 LABALBU 3.6 04/10/20222058 BILITOT 0.3 04/10/20222058 ALKPHOS 64 04/10/20222058 AST 31 04/10/20222058 ALT 15 04/10/20222058 PROCAL 0.76 (H) 04/12/2022 0330 PROCAL 1.07 (A) 12/01/2020 0354 PROCAL 4.62 (A) 11/29/2020 0547 Component Value Date/Time WBC 9.8 04/14/2022 0249 HGB 10.8 (L) 04/14/2022 024 HCT 32.2 (L) 04/14/2022 024 PLT 288 04/14/2022 0249 GRANULOCYTES 78.9 04/12/2022 0330 LYMPHOPCT 8.9 (L) 04/12/2022 0330 MONOPCT 6 04/14/2022 0249 LABEOS 1 04/14/2022 024 BASOPCT 0 04/14/2022 0249 NEUTROABS 8.1 04/14/2022 0249 Micro: 04/10 BC: E smqt-vtem-gcapkvldb Urine cx: E coli Urinary antigens: neg [...] Moist; Low Sodium (2 gm); Mildly Thick ([place]) ADULT ORAL NUTRITION SUPPLEMENT; Lunch, Dinner; Frozen [...] CHOL No results found for: PHART, PO2ART, OAL2QHJ No results for input(s): INR in the [...] - repeat blood culture -04/12- staph epi- 1/ - likely contaminant. No E coli Sepsis [...] MD Rounding Hospitalist Speech Language Pathology Facility/Department: [facility] 2E TELEMETRY Daily Treatment Note NAME: [...] eggs and oatmeal with some encouragement from PETROLEUM LABORATORY TECHNICIAN and RN. She asked for more coffee. [...] Unable to assess Fluid Accumulation: Mild Generalized Lisw Strength: Not Performed Nutrition Assessment: Pt admitted from group home for evaluation of fever and reports of [...] and moist diet with mildly thickened liquids. PETROLEUM LABORATORY TECHNICIAN is following and working with pt. Intakes [...] Moist; Low Sodium (2 gm); Mildly Thick ([place]) Anthropometric Measures: Height: 5' 2" (157.5 cm) [place] Body Weight (IBW): 110 lbs (50 kg) Current Body Weight: 167 lb (75.8 kg), 151.8 % IBW. Current BMI (kg/m2): 30.5 Usual Body Weight: 185 lb (83.9 kg) % Weight Change (Calculated): -9.7 BMI Categories: Obese Class 1 (BMI 30.0-34.9) Estimated Daily Nutrient Needs: Energy Requirements Based On: Kcal/kg Energy (kcal/day): 5225-9375 Weight Used for Protein Requirements: [place] Protein (g/day): 55-65 Method Used for Fluid [...] note were not included. Hospitalist Progress Note 04/13/20226994005-1102: Please reach me on [facility] Serve patient care issues. [phone]: Please page [facility] night Hospitalist for any issues. Subjective: Admit Date: 04/10/2022 PCP: Wale Cadena MD Room#: 249/2492 Interval History: No fever spikes yesterday Appears more comfortable No acute issues overnt, pt unable to respond to questions. ROS unobtainable from pt d/t cognitive status Smiling/waving ADULT DIET; Dysphagia - Minced and Moist; Low Sodium (2 gm); Mildly Thick ([place]) Patient Vitals for the past 96 hrs [...] disorder (HCC) Smoker LABS: CBC: Recent Labs 04/10/229 04/11/22 1208 04/12/22 0330 WBC 20.9* 18.2* 14.3* [...] MD Division of Hospitalist Medicine Inpatient Medical Services/[facility] Images from the original note were not included. Palliative Progress Note Chief Complaint: Ubaldo Arango is a 71 y.o. female with chief complaint of fevers with seizure on 04-08. Palliative care is actively following this patient. Assessment/Plan Assessment/Plan Goals of care Pt is not able to make her own decisions. Spoke with [place] [address] court who has emailed a copy of guardianship(person only not financial) naming Cleveland Arango [phone]( brother) as 1st and Zachary Arango [phone]( sister in law) as 2nd[address] Will place this in the chart. Pt resides at [facility], plans for her to return when medially stable. Discussed her full code status and what this entails. Also discussed DNRCC and DNRCCA. Guardian asked that I first call facility [facility] to verify if she was a full [...] 1 Subjective/Events 71 yr old female from [facility] presented to the ER via EMS for [...] Comments: Unable to assess Psychiatric: Comments: calm Morenci Symptom Assessment Score Morenci Score Pain Score 0 Tiredness Score 0 [...] Illness: Is patient hospice appropriate? no Facility/Department: [facility] TELEMETRY Dysphagia Treatment Note NAME: Ubaldo Arango [...] from small medicine cup. D/W RN and HOTEL AND DINING ROOM CASHIER Palliative Care. [] Goal met [] Progressing [...] at bedside with recommended diet. ALEJANDRO Carcamo M.A.CCC/PETROLEUM LABORATORY TECHNICIAN Time session ended: 938 Total session minutes: 30 Speech Language Pathology Facility/Department: [facility] TELEMETRY Dysphagia Treatment Note NAME: Ubaldo Arango [...] but became compliant with assist from nursing administrator who knew her from her facility. O: [...] note were not included. Hospitalist Progress Note 04/12/[id number]: Please reach me on [facility] Serve patient care issues. [phone]: Please page [facility] night Hospitalist for any [...] Moist; Low Sodium (2 gm); Mildly Thick ([place]) Patient Vitals for the past 96 hrs [...] PLT 210 170 174 BMP: Recent Labs 04/10/22205804/11/228 04/12/22 0330 NA 135 137 140 K [...] NEGATIVE: No targets were detected by the [employer] Upper Respiratory Pathogens PCR Panel. _ Expected [...] CNP Division of Hospitalist Medicine Inpatient Medical Services/[facility] Nutrition rescreen completed. Patient referred to the [...] located under the "Chart Review" section of [facility]. Click on the "Procedure" tab to locate the complete Speech Pathologist MBSS results and recommendations titled [employer]ROLEUM LABORATORY TECHNICIAN video swallow on this date. + aspiration with slightly larger cup drink with thin liquids; +cough. Recommended diet: Minced and moist diet with mildly thick liquids --Slow rate-to await swallows between bites --Single cup drinks of mildly thick (administer via small medicine cup to control) ALEJANDRO Carcamo M.A. [facility]-PETROLEUM LABORATORY TECHNICIAN Speech Language Pathology Facility/Department: [facility] Speech Language Pathology Clinical Bedside Swallow [...] department for evaluation of fever. Patient centers group home for fever. alf staff said she had a seizure 2 [...] meropenem Date of Evaluation: 04/11/2022 Evaluating Therapist: ALEJANDRO Carcamo Dysphagia Diagnosis Dysphagia Impression : Suspect fucntional [...] Subjective: Pt is non-verbal, from [facility] Behavior/Cognition: Alert;Requires cueing O2 Device: Nasal cannula [...] solids. Cough x3 during assessment. Recommendations Requires PETROLEUM LABORATORY TECHNICIAN Intervention: Yes Recommendations: Modified barium swallow study [...] does not appear in pain Therapy Time PETROLEUM LABORATORY TECHNICIAN Individual Minutes Time In: 1048 Time Out: 1110 Minutes: 22 Signature: Raquel Lamar MA, CCC-[employer]ROLEUM LABORATORY TECHNICIAN Speech-Language Pathologist Images from the original note were not included. Hospitalist Progress Note 04/11/2022 [phone]: Please reach me on [facility] Serve patient care issues. [phone]: Please page [facility] night Hospitalist for any [...] CNP Division of Hospitalist Medicine Inpatient Medical Services/[facility] documented in this encounter [facility] Work Phone: [...] Moist; Low Sodium (2 gm); Mildly Thick ([place]) ADULT ORAL NUTRITION SUPPLEMENT; Lunch, Dinner; Frozen [...] tablet Where t (more content not included)... [facility] 04-17-2022 Hospital Discharg e instructions Dylan Foss RN - 04/17/2022 8:28 AM EDT Continuity of Care Form Patient Name: Ubaldo Arango : 1950 Admit date: 04/10/2022 Discharge date: Code Status Order: Limited Advance Directives: Admitting Physician: Martir Kumari MD PCP: Wale Cadena MD Discharging Nurse: Discharging Hospital Unit/Room#: 249/2492 Discharging Unit Phone Number: Emergency Contact: Extended Emergency Contact Information Primary Emergency Contact: zahcary arango Relation: Legal Guardian Secondary Emergency Contact: thaispablito Relation: Brother/Sister Past Surgical History: No past [...] Bathing Dependent Dressing Dependent Toileting {CHP DME ADLs:[id number]} Feeding Assisted Physical Fitness Teacher Assisted Med Delivery crushed and prefers mixed [...] mechanically altered Routes of Feeding: Oral Liquids: [place] Thick Liquids Daily Fluid Restriction: no Last Modified Barium Swallow with Video (Video Swallowing Test): not done Treatments at the Time of Hospital Discharge: Respiratory Treatments: Oxygen Therapy: is not on home oxygen therapy. Ventilator: {MH CC Vent List:[id number]} Rehab Therapies: {THERAPEUTIC INTERVENTION:[id number]} Weight Bearing Status/Restrictions: No weight bearing restrictions Other Medical Equipment (for information only, NOT a DME order): wheelchair Other Treatments: Patient's personal belongings (please select all that are sent with patient): None RN SIGNATURE: CASE MANAGEMENT/SOCIAL WORK SECTION Inpatient Status Date: Readmission Risk Assessment Score: Readmission Risk Risk of Unplanned Readmission: 13 Discharging to Facility/ Agency Name: [facility] Address: [address] [place] [address] Fax: Dialysis Facility (if applicable) Name: Address: Dialysis Schedule: Phone: Fax: [employer] signature: PHYSICIAN SECTION Prognosis: Good Condition at [...] the diagnosis listed and that she requires Intermediate Facility for greater 30 days. Update Admission H&P: No change in H&P PHYSICIAN SIGNATURE: documented in this encounter [facility] Work Phone: 12-03-2020 History of Presen t illness Narrative Pt discharged with transport service, brief report and recent vitals given with no other questions at this time. All pt belongings sent with pt. Report given to [facility] by day shift RN. Pt alert sitting quietly in bed, was able to hang Abx but was not able to get pt to take evening oral medications. Pt turns toward the opposite side of bed when approached with oral medication administration. Will continue to monitor pt progress. Report given to [facility] [place] Speech Language Pathology Attempted to see pt for dysphagia therapy. Pt is currently ordered minced and moist, thin liquid diet. Pt consumes liquids via sippy cup. Pt initially smiling when this PETROLEUM LABORATORY TECHNICIAN said hello. Offered pt her sippy cup [...] if further concerns arise. Felicitas Hussein MA, CCC-[employer]ROLEUM LABORATORY TECHNICIAN 12/02/2020 Pharmacy Vancomycin Consult Follow-Up Note Current [...] diet- minced and moist, thin liquids per PETROLEUM LABORATORY TECHNICIAN. 2. Continue Magic Cup BID. Initiate pro-stat [...] hx of anoxic brain injury and dementia. PETROLEUM LABORATORY TECHNICIAN continues to recommend minced and moist diet w/thin liquids in sippy cup. Pt still w/limited participation in PETROLEUM LABORATORY TECHNICIAN eval. Pt receiving Mac and cheese w/mashed potatoes everyday. Also receiving magic cup at L/D. Pt receiving pop on multiple trays, unsure if this is a preference for pt, but will trial addition of pro-stat to the pop. Malnutrition Assessment: Malnutrition Status: Insufficient data Context: Acute Illness Estimated Daily Nutrient Needs: Energy (kcal): 0948-9709 kcals(25-30); Weight Used for Energy Requirements: [place](50kg) Protein (g): 50-60(1-1.2); Weight Used for Protein Requirements: [place] Fluid (ml/day): 1500 ml/day or per MD; [...] 187 lb (84.8 kg) Usual Body Weight: [place] Body Weight: 110 lbs; % [place] Body Weight 168.2 % BMI: 33.8 Adjusted [...] Procalcitonin: Lab Results Component Value Date PROCAL .12/01/2020 Objective: Vitals: BP 108/62 Pulse 62 Temp [...] mg Oral BID LABS: CBC: Recent Labs 11/28/206 11/29/20 0547 WBC 12.9* 11.0* RBC 4.11 [...] Inpatient Medical Services Speech Language Pathology Facility/Department: [facility] 2E TELEMETRY CLINICAL BEDSIDE SWALLOW EVALUATION NAME: Ubaldo [...] time to 1-3 swallows) Treatment Plan Requires [employer]LEUM LABORATORY TECHNICIAN Intervention: Yes Duration/Frequency of Treatment: 3 visits [...] Patient Education: Explain role and introduction to PETROLEUM LABORATORY TECHNICIAN Patient Education Response: Verbalizes understanding Therapy Time PETROLEUM LABORATORY TECHNICIAN Individual Minutes Time In: 0750 Time Out: [...] morning medications. Appears at baseline. Spoke to porter sample case and she is a jail resident and does not need OT to return. D/C OT orders. Jennyfer Diana OT Physical Therapy Facility/Department: [facility] 2E TELEMETRY Initial Assessment NAME: Ubaldo Arango : 1950 Date of Service: 11/29/2020 PT orders received to evaluate and treat. PMH significant for dementia and anoxic brain injury since she was a child. She is non-verbal and gets into a wheelchair with assist. Is not following commands and is refusing morning medications. Appears at baseline. Spoke to porter sample case and she is a emt intermediate resident and does not need PT to [...] echocardiogram, follow up labs, follow up BG, PT/OT/PETROLEUM LABORATORY TECHNICIAN, encourage PO, see orders. Comprehensive Nutrition Assessment Type and Reason for Visit: Initial, Positive Nutrition Screen Nutrition Recommendations/Plan: 1. Continue with Minced and Moist Diet. PETROLEUM LABORATORY TECHNICIAN following. 2. Initiate Magic cup BID per [...] any questions. Lunch tray at bedside unconsumed. PETROLEUM LABORATORY TECHNICIAN is following and also noted inability to [...] assess Fluid Accumulation: No significant fluid accumulation Lisw Strength: Not Performed Estimated Daily Nutrient Needs: Energy (kcal): 1423-1689 kcals(25-30); Weight Used for Energy Requirements: [place](50kg) Protein (g): 50-60(1-1.2); Weight Used for Protein Requirements: [place] Fluid (ml/day): 1500 ml/day or per MD; [...] 187 lb (84.8 kg) Usual Body Weight: [place] Body Weight: 110 lbs; % [place] Body Weight 165.7 % BMI: 33.3 Adjusted [...] Discharge Planning: Too soon to determine Contact: *[id number] Progress Note 11/28/2020 12:57 PM Name: Ubaldo Arango Day: 1 Admit Date: 11/27/2020 7:10 AM [...] k, follow up labs, follow up BG, PT/OT/[employer]ROLEUM LABORATORY TECHNICIAN, encourage PO, see orders. [address] Initial Assessment NAME: Ubaldo Arango : 1950 [...] Phyllis Epperson OT Speech Language Pathology Facility/Department: [address] Dysphagia Eval Attempt Note NAME: Ubaldo Arango [...] assess. Time Session Ended: 905 Raquel Lamar M.A.CCC/[employer]LE[employer] LABORATORY TECHNICIAN Speech-Language Pathologist An K95 mask and gloves were worn throughout this session. Patient is nonverbal but will produce high pitched screams when she seems to be uncomfortable with the nursing interventions. This RN was unable to give the patient her oral medications, put the equipment monitor phototypesetting on, nor the oxygen tubing for supplemental O2. Patient's current pulse oximetry reading is 92% room air. The patient allowed me to give her IV medications. [facility] [place] hospitalist is aware. Dr. Madera aware patient is refusing medications. Perfect serve to Dr. Madera: Patient is refusing to take medications. Called group home for tips and they said she has a hard time with different people in her environment. Spoke with guardian Zacharygeovani Zarate, she said patient is non verbal but able to understand some things. She gets in a wheelchair at the group home and wheel around. If she gets frightened [...] most local grocery stores, pharmacies, and chain [employer]stores. If you have any questions about your [...] Agent's Name Healthcare Agent's Phone Number 11/27/20 [phone] Yes, patient has an advance directive for healthcare treatment Other (Comment) she has a guardian in place No, copy requested from family Legal Guardian Haritha Arango [phone] Admitting Physician: Naz Madera MD PCP: No [...] Dependent Dressing Dependent Toileting Dependent Feeding Assisted Physical Fitness Teacher Assisted Med Delivery crushed Wound Care Documentation [...] Readmission: 11 Discharging to Facility/ Agency Name: [facility] Address: [address] [place] [address] Dialysis Facility (if applicable) Name: Address: Dialysis Schedule: Phone: Fax: [employer] [facility] signature: PHYSICIAN SECTION Prognosis: Good Condition at Discharge: Stable Rehab Potential (if transferring to Rehab): Good Recommended Labs or Other Treatments After Discharge: CMP, CBC wkly while on IV ATB See OPAT form Physician Certification: I certify the above information and transfer of Ubaldo Arango is necessary for the continuing treatment of the diagnosis listed and that she requires Intermediate Facility for greater 30 days. Update Admission H&P: No change in H&P PHYSICIAN SIGNATURE: documented in this encounter [facility] Work Phone: Evaluation note Diagnosis Urinary tract infection with hematuria, site unspecified- Primary Chronic pain syndrome documented in this encounter [facility] Work Phone: Evaluation noteNo assessment information available [facility] Work Phone: Evaluation note* Diagnosis Septicemia (HCC)- Primary Unspecified septicemia Hypoxia Hypoxemia Acute cystitis without hematuria Acute cystitis Pneumonia of right middle lobe due to infectious organism Severe sepsis (HCC) documented in this encounter [facility] Work Phone: Evaluation note* Diagnosis Acute cough- Primary Viral upper respiratory tract infection Acute upper respiratory infections of unspecified site [facility]* Attachments The following attachments cannot be sent through Care Everywhere. 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 ACP-Do Not Resuscitate 12/05/2020 12:47 [...] Documents on File Type Date Recorded 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 DNR (Do Not Resuscitate) 04/19/2022 DNR (Do Not Resuscitate) 11/27/2020 Chief Complaint and Reason for Visit Chief Complaint SENIOR LIVING LAB WOR K SENIOR LIVING LAB WORK SENIOR LIVING LABWORK SENIOR LIVING LABWORK SENIOR LIVING LAB WORK SENIOR LIVING LABWORK SENIOR LIVING LAB WORK Chief Complaint SENIOR LIVING LABWORK SENIOR LIVING LABWORK SENIOR LIVING LAB WORK SENIOR LIVING LABWORK SENIOR LIVING LAB WORK SENIOR LIVING LABWORK Chief Complaint SENIOR LIVING LABWORK SENIOR LIVING LAB WORK SENIOR LIVING LABWORK SENIOR LIVING LAB WORK SENIOR LIVING LABWORK Chief Complaint SENIOR LIVING LAB WOR K SENIOR LIVING LABWORK SENIOR LIVING LABWORK LABWORK Chief Complaint SENIOR LIVING LABWORK SENIOR LIVING LABWORK LABWORK SENIOR LIVING LAB WORK Chief Complaint SENIOR LIVING LABWORK LABWORK SENIOR LIVING LAB WORK SENIOR LIVING LAB WORK LABWORK Chief Complaint LABWORK SENIOR LIVING LAB WORK SENIOR LIVING LAB WORK LABWORK SENIOR LIVING LAB WORK Chief Complaint LABWORK SENIOR LIVING LAB WORK SENIOR LIVING LAB WORK LABWORK SENIOR LIVING LABWORK SENIOR LIVING LAB WORK Chief Complaint SENIOR LIVING LAB WOR K LABWORK SENIOR LIVING LABWORK SENIOR LIVING LAB WORK LABWORK SENIOR LIVING LAB WORK Chief Complaint SENIOR LIVING LAB WOR K LABWORK SENIOR LIVING LAB WORK SENIOR LIVING LAB WORK Chief Complaint SENIOR LIVING LAB WOR K LABWORK SENIOR LIVING LAB WORK SENIOR LIVING LAB WORK SENIOR LIVING LABWORK Chief Complaint SENIOR LIVING LAB WOR K SENIOR LIVING LABWORK SENIOR LIVING LABWORK Chief Complaint SENIOR LIVING LAB WOR K SENIOR LIVING LABWORK SENIOR LIVING LABWORK LABWORK Chief Complaint SENIOR LIVING LAB WOR K SENIOR LIVING LABWORK SENIOR LIVING LABWORK LABWORK SENIOR LIVING LAB WORK Chief Complaint SENIOR LIVING LAB WOR K SENIOR LIVING LABWORK SENIOR LIVING LABWORK LABWORK SENIOR LIVING LAB WORK SENIOR LIVING LABWORK Chief Complaint SENIOR LIVING LABWORK LABWORK SENIOR LIVING LAB WORK SENIOR LIVING LABWORK SENIOR LIVING LABWORK Chief Complaint SENIOR LIVING LABWORK SENIOR LIVING LAB WORK LABWORK Chief Complaint SENIOR LIVING LAB WOR K LABWORK SENIOR LIVING LAB WORK LABWORK Chief Complaint SENIOR LIVING LAB WOR K LABWORK SENIOR LIVING LAB WORK LABWORK LABWORK Chief Complaint SENIOR LIVING LAB WOR K LABWORK LABWORK SENIOR LIVING LABWORK LABWORK Chief Complaint SENIOR LIVING LAB WOR K LABWORK LABWORK SENIOR LIVING LABWORK SENIOR LIVING LABWORK LABWORK Chief Complaint SENIOR LIVING LABWORK LABWORK LABWORK SENIOR LIVING LABWORK LABWORK Chief Complaint LABWORK SENIOR LIVING LABWORK LABWORK LABWORK Chief Complaint LABWORK SENIOR LIVING LABWORK LABWORK LABWORK LABWORK Chief Complaint LABWORK SENIOR LIVING LABWORK LABWORK LABWORK LABWORK SENIOR [facility]IVING LAB WORK Chief Complaint Admit Date LABWORK November 30, 2024 5:0 0am Chief Complaint Admit Date SENIOR LIVING LAB WORK November 23, 2024 9 :18am LABWORK November 30, 2024 5:0 0am Chief Complaint Admit Date SENIOR LIVING LAB WORK November 23, 2024 9 :18am [...] Nery Aviles RN)0700 (Stopped - Provider: Rosita Borrego, YAMILA)1236 (New Bag - Provider: Rosita Borrego, YAMILA)1323 (Stopped - Provider: Rosita Borrego, RN) cefdinir (OMNICEF) capsule 300 mg 300 mg, Oral, EVERY 12 HOURS SCHEDULED (2 times per day), 8 doses, First dose on 04/16/22 at 2100, Last dose on Sat04/20/22 at 0900, Antimicrobial Indications: Urinary Tract Infection, UTI duration of therapy: Other, Other Urinary Tract Infection Duration: Another 4 days through 04/20/22 2213 (Given - Provider: Inés Batista RN) 1014 (Given - Provider: Dylan Foss RN)211 (Given - Provider: Inés Batista RN) 101 [...] Foss RN)1302 (Given - Provider: Dylan Foss RN)2118 (Given - Provider: Inés Batista RN) 1016 [...] Foss RN) 0547 (Given - Provider: Inés Batista, YAMILA) metoclopramide (REGLAN) tablet 10 mg 10 mg, [...] Dylan Foss RN)2117 (Given - Provider: Inés Batista, YAMILA) 1015 [...] RN - Reason: Other - Comment: technical issue)1951 (Not Given - Provider: Inés Batista RN [...] Status Dates Wale WHEATLEY Attending Provider Active Assisted Living Nursing Director Relationship Specialty Start Date End Date Wale Cadena MD [address] [place] [address] PCP - General Internal Medicine 04/12/22 Team Status: Inactive Member Role Status Dates Wale Cadena Attending Provider, Referring Provider Active Team Status: Inactive Member Role Status Dates Wale Cadena Attending Provider Active Team Status: Active Member Role Status Dates Wale Cadena Attending Provider Active Team Status: Inactive Member Role Status Dates Wale WHEATLEY Attending Provider, Referring Provi bora Active Assisted Living Nursing Director Relationship Specialty Start Date End Date Wale Cadena [address] [place] [phone] PCP - General 04/12/22 Assisted Living Nursing Director Relationship Specialty Start Date End Date TammiWale [address] [place] [phone] PCP - General 04/12/22 Assisted Living Nursing Director Relationship Specialty Start Date End Date Wale Cadena [address] [place] [phone] PCP - General 04/12/22 Team Status: Active [...] December 18, 2024 End: December 18, 2024 Assisted Living Nursing Director Relationship Specialty Start Date End Date Wale Cadena [address] [place] [phone] PCP - General 04/12/22 INFORMATION SOURCE (unrecogn ized section and content) DATE CREATED AUTHOR 05/02/2022 [facility] DATE CREATED AUTHOR AUTHOR'S ORGANIZ ATION 02/21/2025 [facility] DATE CREATED AUTHOR AUTHOR'S ORGANIZ ATION 06/02/2025 [facility] FOR RECORDS PERTAINING TO PATIENTS WHO ARE [...] BE BASED ON THE PRIMARY CLINICAL RECORDS. [facility]. provides no warranty or guarantee of the accuracy or completeness of information in this document.
== END ==
LOC: OLS.ACW300 05:00
PROVIDERS: Visit Provider Internal Medicine
DX: R56.9 Unspecified convulsions (principal); R26.81 Unsteadiness on feet; F72 Severe intellectual disabilities
CPT/HCPCS: 36415; 84443